=== PATIENT | male | born 1965 | race Caucasian/White ===

== ENCOUNTER 2020-05-01 05:32 | Emergency (ER) | payer OTHER ==
[2020-05-01] MEDS ORDERED: NA CHLORIDE 0.9% 1,000 ML ONE (06:35)
[2020-05-01] MEDS ORDERED: ONDANSETRON 4 MG/2 ML VIAL ONE (06:35)
[2020-05-01] MEDS ORDERED: FENTANYL CITR 100 MCG/2 ML ONE (06:35)
[2020-05-01 06:46] LABS: Absolute Lymphocytes (CBC) 2.8 K/uL (0.7-4.9); Hematocrit 43.6 % (39.6-49.0); Lymphocytes % 17.6 % (15.3-44.8); MPV 9.9 fL (7.6-11.3); RBC Red Blood Cell Count 4.66 M/uL (4.33-5.43)
[2020-05-01 06:47] LABS: Protime INR 1.07
[2020-05-01] MEDS ORDERED: TETANUS & DIPHTHERIA TOX,ADULT 0.5 ML VIAL ONE (07:01)
[2020-05-01 08:11] LABS: ALT/SGPT 192 U/L (12-78); Albumin 3.3 g/dL (3.4-5.0); Alkaline Phosphatase 174 U/L (45-117); BUN Blood Urea Nitrogen 11 mg/dL (7-18); Bicarbonate 19 mmol/L (21-32); Bilirubin Direct 0.3 mg/dL (0-0.2); Bilirubin Total 0.8 mg/dL (0.2-1.0); Glucose Level 219 mg/dL (74-106); Sodium Level 139 mmol/L (136-145)
[2020-05-01 08:13] LABS: AST/SGOT 188 U/L (15-37); Potassium 4.3 mmol/L (3.5-5.1)
[2020-05-01] MEDS ORDERED: LIDOCAINE 1% MPF 5 ML VIAL ONE (09:46)
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
--- NOTE | 2020-05-01 10:43 | ER ---
Nurse's Notes [facility] Name: Huber Augustine Age: 55 yrs Sex: Male : 1965 Arrival Date: 05/01/2020 Time: 05:35 Bed 8 Private MD: Diagnosis: Alcohol abuse with intoxication;Laceration without foreign body of other part of head-forehead;Pain in right shoulder Presentation: 05/01 05:35 Chief complaint: EMS states: patient found on the ground, lacerated wound on the center rr5 of the forehead and complaining of pain on his right shoulder and right side of the chest. Coronavirus screen: Proceed with normal triage. Ebola Screen: Patient negative for fever greater than or equal to 101.5 degrees Fahrenheit, and additional compatible Ebola Virus Disease symptoms Patient denies exposure to infectious person. Patient denies travel to an Ebola-affected area in the 21 days before illness onset. Complicating Factors: drowsy, had a few drinks stated by the patient. Initial Sepsis Screen: Does the patient meet any 2 criteria? No. Patient's initial sepsis screen is negative. Does the patient have a suspected source of infection? No. Patient's initial sepsis screen is negative. Risk Assessment: Do you want to hurt yourself or someone else? Patient reports no desire to harm self or others. Onset of symptoms was May 01, 2020. 05:35 Method Of Arrival: EMS: [facility] rr5 05:35 Acuity: ROSALEE 2 rr5 05:35 Care prior to arrival: Cervical collar in place. Placed on backboard. rr5 05:35 Note CBG from EMS 230 mg/Dl. rr5 05:35 Mechanism of Injury: Fall found on the ground. Trauma event details: Injury occurred in [address], [facility]: May 01, 2020. Trauma Activation: Alert Physician: ED Physician; Name: dr. mckee/ priti jacome; Notified At: 05:35; Arrived At: 06:15 Physician: General Surgeon; Name: ; Notified At: 05:25; Arrived At: Physician: Radiology; Name: dannie/gopal; Notified At: 05:25; Arrived At: 06:28 Physician: Respiratory; Name: ; Notified At: 05:25; Arrived At: Physician: Lab; Name: ; Notified At: 05:25; Arrived At: Historical: - Allergies: 05:41 No Known Allergies; rr5 - Home Meds: 05:41 Lisinopril Oral [Active]; gabapentin oral oral [Active]; rr5 - PMHx: 05:41 neuropathy; Hypertension; Diabetes - NIDDM; rr5 06:58 liver cancer; rr5 - PSHx: 06:58 Cholecystectomy; ankle surgery; rr5 - Immunization history:: Adult Immunizations up to date, Last tetanus immunization: up to date. - Social history:: Smoking status: Patient reports the use of cigarette tobacco products, denies chronic smoking, but will smoke occasionally, Patient uses alcohol, occasionally. Patient/guardian denies using street drugs. Screenin:42 Abuse screen: Denies threats or abuse. Denies injuries from another. Nutritional rr5 screening: No deficits noted. Tuberculosis screening: No symptoms or risk factors identified. Fall Risk Fall in past 12 months (25 points). IV access (20 points). Gait- Impaired (20 pts.). Mental Status- Overestimates/Forgets Limitations (15 pts.). Total Michael Fall Scale indicates High Risk Score (45 or more points). Fall prevention measures have been instituted. Side Rails Up X 2 Placed Close to Nursing Station As available patient and family educated on Fall Prevention Program and Strategies. Primary Survey: 05:42 NO uncontrolled hemorrhage observed. A: The patient is alert. Airway: patent, No rr5 supplemental oxygen in use on arrival. Oral cavity: clear, gag reflex present, Trachea midline. Breathing/Chest: Respiratory pattern: regular, Respiratory effort: spontaneous, unlabored, Breath sounds: clear, bilaterally. Chest inspection:. Circulation: Pulses: palpable right radial artery, right dorsalis pedis artery, left radial artery and left dorsalis pedis artery. Skin color: pink, Skin temperature: warm, dry. Disability Alert. Exposure/Environment: All clothing and personal items were removed. There is no evidence of uncontrolled external bleeding. Obvious injury(ies) are noted at this time: lacerated wound at center of the forehead A warming method has been applied: A warm blanket has been provided to the patient. 06:48 Reassessment Airway Airway Breathing/Chest Respiratory pattern Regular Respiratory rr5 effort Spontaneous Unlabored Breath sounds Clear Chest inspection Symmetrical Circulation Heart tones Present Pulses Palpable Color [place] Temperature Warm Dry Disability Alert. Secondary Survey: 05:43 HEENT: Face Other lacerated wound at the center of forehead Eyes: No injury or rr5 deformity noted. to bilateral eyes. Ears: clear bilaterally. Nose: clear to bilateral nares. Throat: is clear with gag reflex present. Gastrointestinal: Abdomen is soft. : No signs and/or symptoms were reported regarding the genitourinary system. Musculoskeletal: Capillary refill < 3 seconds, Reports pain in right shoulder. Injury Description: Laceration sustained to forehead is clean, 0.5 to 2.5 cm long, not bleeding, dry lacerated wound,center of the forehead. Assessment: 05:35 General: Appears in no apparent distress. uncomfortable, Behavior is cooperative, rr5 drowsy. Pain: Complains of pain in right lateral anterior chest Pain currently is 7 out of 10 on a pain scale. Quality of pain is described as aching, Pain began gradually, Is continuous. 05:35 Neuro: Level of Consciousness is awake, alert, Oriented to person, place, time, rr5 situation. Cardiovascular: Reports right chest wall pain Capillary refill < 3 seconds Patient's skin is warm and dry. Respiratory: Airway is patent Respiratory effort is even, unlabored, Respiratory pattern is regular, symmetrical. GI: Abdomen is non-distended, Abdomen is tender to palpation in right upper quadrant and left upper quadrant Reports upper abdominal pain. : EENT: No signs and/or symptoms were reported regarding the EENT system. Derm: Skin is intact, Skin temperature is warm Wound noted forehead Wound is lacerated wound. Musculoskeletal: Capillary refill < 3 seconds. 05:35 Injury Description: Laceration sustained to forehead is clean, 0.5 to 2.5 cm long, not rr5 bleeding. 06:15 Reassessment: Patient appears in no apparent distress at this time. back from CT scan. rr5 seen and examined by ED provider with order made and carried out. 06:50 Reassessment: Patient appears in no apparent distress at this time. Patient is alert, rr5 oriented x 3, equal unlabored respirations, skin warm/dry/pink. awaiting for results. 07:30 Reassessment: Patient appears in no apparent distress at this time. No changes from jl7 previously documented assessment. Patient is alert, oriented x 3, equal unlabored respirations, skin warm/dry/pink. 08:30 Reassessment: Patient appears in no apparent distress at this time. No changes from jl7 previously documented assessment. Patient and/or family updated on plan of care and expected duration. Pain level reassessed. Patient is alert, oriented x 3, equal unlabored respirations, skin warm/dry/pink. 09:41 Reassessment: Patient appears in no apparent distress at this time. pt laying in bed jl7 with eyes closed, respirations even and unlabored, no signs of distress noted at this time. 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 Vital Signs: 05:35 BP 139 / 88; Pulse 86; Resp 17; Temp 97.5; Pulse Ox 100% ; Weight 120.2 kg; Height 5 rr5 ft. 6 in. (167.64 cm); Pain 7/10; 06:40 BP 128 / 81; Pulse 76; Resp 16; Pulse Ox 98% ; rr5 07:00 BP 124 / 80; Pulse 72; Resp 17; Pulse Ox 96% ; jl7 08:00 BP 117 / 82; Pulse 75; Resp 17; Pulse Ox 95% ; jl7 09:42 BP 117 / 78; Pulse 65; Resp 15; Pulse Ox 95% ; jl7 10:27 BP 136 / 88; Pulse 70; Resp 15; Pulse Ox 99% ; jl7 05:35 Body Mass Index 42.77 (120.20 kg, 167.64 cm) rr5 Beverly Coma Score: 05:25 Eye Response: spontaneous(4). Verbal Response: oriented(5). Motor Response: obeys rr5 commands(6). Total: 15. 07:00 Eye Response: spontaneous(4). Verbal Response: oriented(5). Motor Response: obeys jl7 commands(6). Total: 15. 08:00 Eye Response: spontaneous(4). Verbal Response: oriented(5). Motor Response: obeys jl7 commands(6). Total: 15. 09:43 Eye Response: spontaneous(4). Verbal Response: oriented(5). Motor Response: obeys jl7 commands(6). Total: 15. 10:27 Eye Response: spontaneous(4). Verbal Response: oriented(5). Motor Response: obeys jl7 commands(6). Total: 15. Trauma Score (Adult): 05:25 Eye Response: spontaneous(1); Verbal Response: oriented(1); Motor Response: obeys rr5 commands(2); Systolic BP: > 89 mm Hg(4); Respiratory Rate: 10 to 29 per min(4); Dorota Score: 15; Trauma Score: 12 06:40 Eye Response: spontaneous(1); Verbal Response: oriented(1); Motor Response: obeys rr5 commands(2); Systolic BP: > 89 mm Hg(4); Respiratory Rate: 10 to 29 per min(4); Beverly Score: 15; Trauma Score: 12 ED Course: 05:35 Patient arrived in ED. sg 05:35 Osiel Gunderson, RN is Primary Nurse. rr5 05:35 Patient maintains SpO2 saturation greater than 95% on room air. Thermoregulation: warm rr5 blanket given to patient. 05:40 Triage completed. rr5 05:41 Arm band placed on right wrist. C-collar applied. back board by EMS. rr5 05:45 Patient has correct armband on for positive identification. Placed in gown. Bed in low rr5 position. Call light in reach. Side rails up X2. 05:45 Pulse ox on. NIBP on. rr5 05:45 Maintain EMS IV. Dressing intact. Good blood return noted. Site clean \T\ dry. Gauge \T\ rr 5 site: G18 left forearm. 06:03 Priti Stanton NP is PHCP. pm1 06:03 Yevgeniy Mckee MD is Attending Physician. pm1 06:27 XRAY Chest (1 view) In Process Unspecified. EDMS 06:28 CT Head C Spine In Process Unspecified. EDMS 06:49 Wound care: to laceration located on forehead was cleaned with Hibiclens, ice pack rr5 applied. Patient tolerated well. 06:54 Radiology exam delayed due to lab results not completed at this time. (BUN/Creatinine). kw1 08:33 Chest Abdomen Pelvis W Con CT In Process Unspecified. EDMS 10:38 Assist provider with laceration repair on in bewtween eyebrows that was between 2.6 to jl7 7.5 cm using sutures. Set up tray. Performed by Priti Stanton NP Dressed with 4X4s, Neosporin, Patient tolerated well. 10:50 IV discontinued, intact, bleeding controlled, No redness/swelling at site. Pressure jl7 dressing applied. Administered Medications: 06:30 Drug: Zofran (Ondansetron) 4 mg Route: IVP; Site: left forearm; rr5 07:00 Follow up: Response: No adverse reaction jl7 06:30 Drug: NS 0.9% 1000 ml Route: IV; Rate: 1000 ml; Site: left forearm; rr5 07:30 Follow up: Response: No adverse reaction; IV Status: Completed infusion; IV Intake: jl7 1000ml 06:32 Drug: fentaNYL (PF) 25 mcg {Note: rass 0.} Route: IVP; Site: left forearm; rr5 07:00 Follow up: Response: No adverse reaction; Pain is decreased jl7 06:57 Drug: Tetanus-Diphtheria Toxoid Adult 0.5 ml {[employer]: [employer]. Exp: rr5 12/19/2021. Lot #: [id number]. } Route: IM; Site: left deltoid; 09:40 Follow up: Response: No adverse reaction jl7 10:30 Drug: Lidocaine (1 %) 5 ml {Note: administered by JAK Osorio.} Volume: 5 ml; Route: jl7 Infiltration; Intake: 07:30 IV: 1000ml; Total: 1000ml. jl7 10:50 PO: 0ml; IV: 1000ml; Tubes: 0ml (); Total: 2000ml. jl7 Output: 10:50 Urine: 2000ml; Total: 2000ml. jl7 Outcome: 10:43 Discharge ordered by . pm1 10:50 Discharged to home via wheelchair, with friend. jl7 10:50 Condition: stable 10:50 Discharge instructions given to patient, Instructed on discharge instructions, follow up and referral plans. Demonstrated understanding of instructions, follow-up care. 10:50 Patient's length of stay was not longer than 2 hours. jl7 13:15 Patient left the ED. jl7 Signatures: Dispatcher [employer] EDMS Marvin Shaw RN RN sg Marinas, Patrick, NP WOOD ROOM HAND pm1 Delfina Ledezma RN RN jl7 Ashleigh Girard kw1 Osiel Gunderson, RN RN rr5
--- NOTE | 2020-05-01 11:14 | RAD REPORT ---
EXAM DESCRIPTION: RAD - Chest Single View - 05/01/2020 6:27 am CLINICAL HISTORY: TRAUMA Chest pain. COMPARISON: No comparisons FINDINGS: Portable technique limits examination quality. The lungs are grossly clear. The heart is normal in size. No displaced fractures. IMPRESSION: No acute intrathoracic process suspected.
[2020-05-01 13:35] VITALS: TEMP 97.5
[2020-05-01 13:41] VITALS: BP 136/88; O2SAT 99
== END 2020-05-01 13:15 | disposition home or self-care (01) ==
LOC: ER 05:32
PROC: 0JQ10ZZ Repair Face Subcutaneous Tissue and Fascia, Open Approach (ICD-10-PCS; principal; 2020-05-01)
DX: S01.81XA Laceration without foreign body of other part of head, initial encounter (principal); F10.129 Alcohol abuse with intoxication, unspecified; M25.511 Pain in right shoulder; Y04.2XXA Assault by strike against or bumped into by another person, initial encounter; Y93.89 Activity, other specified; Y92.89 Other specified places as the place of occurrence of the external cause; Z23 Encounter for immunization; I10 Essential (primary) hypertension; Z72.0 Tobacco use; Z85.05 Personal history of malignant neoplasm of liver
CPT/HCPCS: 96361; 85025; 80048; 36415; 80320; 86900; 86850; 85610; 86901; 82947; 80076; 70450; 72125; 71260; 74177; 71045; 90471; 90714; 96375; 96374; 99285; 12011; Q9967; J3010; J7030; J2405

== ENCOUNTER 2020-06-05 02:17 | Emergency (ER) | payer OTHER ==
--- OUTSIDE RECORDS SUMMARY | 2020-06-05 02:23 | XMS REPORT | Continuity of Care Document ---
:1965 Author Organization [employer] Care Team Providers Name Role Phone [employer] Unavailable Un available Problems Problem Status Onset Classification Date Comments Sourc e Date Reported Disorder of the 11/11/19 11/13/2019 skin and 20 [place] subcutaneous tissue, unspecified Follicular 11/11/19 11/13/2019 disorder, 20 [place] unspecified SOB Active 11/11/19 20 [place] Patient's other 10/19/20 10/21/2019 noncompliance 19 [place] with medication regimen Hyperglycemia, 10/19/20 10/21/2019 unspecified 19 [place] OTHER Active 10/19/20 19 [place] ABDOMINAL PAIN Active 05/12/20 Memor ial 19 [place] INTRACTABLE Active 05/12/20 [facility] VOMITING, 19 [place] DEHYDRATION Diabetes 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 mellitus [place] (disorder) Hypertensive 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 disorder, [place] systemic arterial (disorder) Vomiting, 05/17/2019 [place] unspecified VOMITING, Active [facility] UNSPECIFIED [place] DEHYDRATION Active [facility] Medications Medication Details Route Status Patient Ordering Order Source Instructions Provider Date ibuprofen 600 600 mg = 1 tab, Active mg oral tablet PO, Q6H, PRN 2019 [place] Pain, take with food, # 30 tab, 0 Refill(s) cephalexin 250 250 mg = 1 cap, Active H mg oral capsule PO, QID, X 5 2020 [place] day, # 20 cap, 0 Refill(s) Mupirocin 0.02 1 appl, TOP, Active MG/MG Topical TID, Please 2020 [place] Ointment apply a thin film to the infected area below your nose only as instructed., X 5 day, # 15 gm, 0 Refill(s) Ibuprofen 600 mg, Route: Inactive PO, ONCE, 2019 Dosing Weight 90, kg, Priority: STAT, Start date: 11/11/19 19:26:00 PEWTER CASTER, Stop date: 11/11/19 19:26:00 PEWTER CASTER Zofran ODT 4 mg, Route: Inactive PO, Drug form: 2019 TABDIS, ONCE, Dosing Weight 84.091, kg, Priority: STAT, Start date: 11/11/19 18:43:00 PEWTER CASTER, Stop date: 11/11/19 18:43:00 PEWTER CASTER Dexamethasone 10 mg, 2.5 mL, Inactive Route: IM, Drug [facility] t form: INJ, ONCE, Dosing Weight 84.091, kg, Priority: STAT, Start date: 11/11/19 18:42:00 PEWTER CASTER, Stop date: 11/11/19 18:42:00 PEWTER CASTER, 0 Metformin Notes: (Same Inactive hydrochloride as: Glucophage) 2018 [place] 1000 MG Oral Take with meal Tablet Metformin 1,000 mg = 1 Active hydrochloride tab, PO, Daily, 2018 [place] 1000 MG Oral # 30 tab, 0 Tablet Refill(s) lisinopril 20 20 mg = 1 tab, Active mg oral tablet PO, Daily, # 30 [place] tab, 0 Refill(s) Insulin regular Notes: (Same Inactive as: Humulin R, 2018 NovoLIN R) Roll in palms of hands gently; Do not shake vigorously. WASTE: F/P - Black; E - Municipal Trash Bin Stable for 31 days at room temperature Expires in days from D ate Saline Flush Notes: (Same Inactive 0.9% as: BD 2018 [facility] Posiflush) Sodium Chloride 1,000 mL, 1000 Inactive 0.9% (Bolus) IV ml/hr, Infuse 2018 [place] Over: 1 hr, Route: IV, 1,000, Drug form: INJ, ONCE, Priority: STAT, Dosing Weight 84.091 kg, Start date: 10/19/19 10:48:00 PEWTER CASTER, Stop date: 10/19/19 10:48:00 PEWTER CASTER, 0 Lisinopril Notes: (Same Inactive as: Prinivil, 2019 [place] Zestril) cefdinir 300 MG Notes: (Same Inactive Oral Capsule As: Omnicef) 2019 [place] cefdinir 300 MG 300 mg = 1 cap, Active Oral Capsule PO, Q12H, X 5 2019 [place] and day, # 10 cap, 0 Refill(s), Pharmacy: [id number] Rocephin + Notes: (Same No Longer sterile water As: Rocephin). Active 2018 [place] 10 mL Use with 100 mL NS and infuse over 30 min MEDICATION WASTE Product Size: 1000 mg Product Wasted: ___ mg Tylenol Notes: Max No Longer acetaminophen = Active 2018 [place] 4000mg/day (4 gm/day). (Same as: Tylenol) Insulin Lispro Notes: (Same No Longer as: Humalog) Active 2018 [place] Roll in palms of hands gently; Do not shake vigorously. WASTE: F/P - Black; E - Municipal Trash Bin Stable for 28 days at room temperature. Expires in days from D ate Dextrose 50% 25 gm, 50 mL, No Longer Syringe Route: IVP, Active 2018 [place] Drug Form: INJ, Dosing Weight 72.727, kg, PRN, PRN Blood Glucose Results, Start date: 05/13/19 1:05:00 CDT, Duration: 30 day, Stop date: 06/12/19 1:04:00 CDT, 0 Glucagon 1 mg, Route: No Longer IM, Drug form: Active 2018 [place] PDR/INJ, PRN, Dosing Weight 72.727, kg, PRN Blood Glucose Results, Start date: 05/13/19 1:05:00 CDT, Duration: 30 day, Stop date: 06/12/19 1:04:00 CDT, 0 NS 1,000 mL 1,000 mL, Rate: No Longer 75 ml/hr, Active 2018 [place] Infuse over: 13.3 hr, Route: IV, Dosing Weight 72.727 kg, Total Volume: 1,000, Start date: 05/13/19 1:04:00 CDT, Duration: 30 day, Stop date: 06/12/19 1:03:00 CDT, 1.94, m2, 0 Dextrose 50% 50 mL, Route: Inactive Syringe IVP, Dosing 2019 [place] Weight 72.727, kg, PRN, PRN Blood Glucose Results, Start date: 05/13/19 1:04:00 CDT, Duration: 30 day, Stop date: 06/12/19 1:03:00 CDT Glucagon 1 mg, Route: Inactive IM, PRN, Dosing 2019 [place] Weight 72.727, kg, PRN Blood Glucose Results, Start date: 05/13/19 1:04:00 CDT, Duration: 30 day, Stop date: 06/12/19 1:03:00 CDT Ondansetron Notes: (Same No Longer as: Zofran) Active 2019 [place] MEDICATION WASTE Product Size: 4 mg Product Wasted: ___ mg Bisacodyl Notes: (Same No Longer As: Dulcolax, Active 2019 [place] Bisco-Lax) Morphine 2 mg, 1 mL, No Longer Route: IVP, Active 2019 [place] Drug form: SOLN, Q4H, Dosing Weight 72.727, kg, PRN Pain Score 7-10, Start date: 05/13/19 1:04:00 CDT, Duration: 30 day, Stop date: 06/12/19 1:03:00 CDT, 0 Sodium Chloride 1,000 mL, Rate: Inactive 0.9% IV 1,000 100 ml/hr, [facility] mL + M.V.I.-12 Infuse over: 10 mL Daily + 10.1 hr, Route: folic acid IV 1 IV, Dosing mg Daily + Weight 72.727 thiamine IV 1 kg, Total Volume: 1,011.2, Start date: 05/12/19 23:29:00 CDT, Duration: 1 doses or times, Stop date: 05/13/19 9:34:00 CDT, 1.94, m2, 0 Sodium Chloride 1,000 mL, 1000 Inactive 0.9% (Bolus) IV ml/hr, Infuse 2019 [place] Over: 1 hr, Route: IV, 1,000, Drug form: INJ, ONCE, Priority: STAT, Dosing Weight 72.727 kg, Start date: 05/12/19 23:29:00 CDT, Stop date: 05/12/19 23:29:00 CDT, 0 Saline Flush Notes: (Same No Longer 0.9% as: BD Active 2019 [place] Posiflush) Saline Flush Notes: (Same No Longer 0.9% as: BD Active 2019 [place] Posiflush) Sodium Chloride 1,000 mL, 1000 Inactive 0.9% (Bolus) IV ml/hr, Infuse 2019 [place] Over: 1 hr, Route: IV, 1,000, Drug form: INJ, ONCE, Priority: STAT, Dosing Weight 72.727 kg, Start date: 05/12/19 17:01:00 CDT, Stop date: 05/12/19 17:01:00 CDT, 0 Ondansetron Notes: (Same Inactive as: Zofran) 2018 [place] MEDICATION WASTE Product Size: 4 mg Product Wasted: ___ mg Famotidine Notes: (Same Inactive as: Pepcid) Can 2019 [place] be dilute in 5-10cc NS IVP: Slow IV push over at least 2 minutes. Morphine Notes: (Same Inactive as:MORPhine 2019 [place] Sulfate) Ativan Notes: (Same Inactive as: Ativan) 2018 [place] Allergies, Adverse Reactions, Alerts No Known Medication Allergies Immunizations No Data Provided for This Section Results Order Name Results Value Reference Date Interpretation Comments [place] CHEM PANEL Glucose Lvl 348 70 - 99 10/19 [place] CHEM PANEL BUN 13 7 - 22 10/19 [place] CHEM PANEL Creatinine 0.95 0.50 - 10/19 Lvl 1.40 /2018 [place] CHEM PANEL Sodium Lvl 134 135 - 145 10/19 [place] CHEM PANEL Potassium 3.8 3.5 - 5.1 10/19 Lvl /2018 [place] CHEM PANEL Chloride Lvl 97 95 - 109 10/19 [place] CHEM PANEL CO2 28 24 - 32 10/19 [place] CHEM PANEL Calcium Lvl 9.1 8.5 - 10.5 10/19 [place] CHEM PANEL Total 7.7 6.4 - 8.4 10/19 [place] CHEM PANEL Albumin Lvl 3.4 3.5 - 5.0 10/19 [place] CHEM PANEL ALT 70 0 - 65 10/19 [place] CHEM PANEL AST 52 0 - 37 10/19 [place] CHEM PANEL Alk Phos 170 39 - 136 10/19 [place] CHEM PANEL Bili Total 0.6 0.2 - 1.3 10/19 [place] CHEM PANEL eGFR 90 10/19 Comment: The [facility] eGFR is calculated using the CKD-EPI formula. In most young, healthy individuals the eGFR will be >90 mL/min/1.73m2 . The eGFR declines with age. An eGFR of 60-89 may be normal in some populations, particularly the elderly, for whom the CKD-EPI formula has not been extensively validated. Use of the eGFR is not recommended in the following populations:< br/>
Renetta viduals with unstable creatinine concentration s, including patients and those with serious co-morbid conditions.<b r/>
Patie nts with extremes in muscle mass or diet.

The data above are obtained from the National Kidney Disease Education Program (NKDEP) which additionally recommends that when the eGFR is used in patients with extremes of body mass index for purposes of drug dosing, the eGFR should be multiplied by the estimated BMI. CHEM PANEL AGAP 12.8 10.0 - 10/19 MH 20.0 [facility] CHEM PANEL B/C Ratio 14 6 - 25 10/19 [facility] CHEM PANEL Globulin 4.3 2.7 - 4.2 10/19 [facility] CHEM PANEL A/G Ratio 0.8 0.7 - 1.6 10/19 [facility] HEMATOLOGY WBC 14.8 3.7 - 10.4 10/19 [facility] HEMATOLOGY RBC 5.21 4.70 - 10/19 MH 6.10 [facility] HEMATOLOGY Hgb 16.5 14.0 - 10/19 MH 18.0 [facility] HEMATOLOGY Hct 48.2 42.0 - 10/19 MH 54.0 [facility] HEMATOLOGY MCV 92.5 80.0 - 10/19 MH 94.0 /2018 [facility] HEMATOLOGY MCH 31.6 27.0 - 10/19 MH 31.0 [facility] HEMATOLOGY MCHC 34.2 32.0 - 10/19 36.0 /2018 [facility] HEMATOLOGY RDW 13.0 11.5 - 10/19 14.5 [facility] HEMATOLOGY Platelet 234 133 - 450 10/19 /2018 [facility] HEMATOLOGY MPV 9.4 7.4 - 10.4 10/19 [facility] HEMATOLOGY RBC Morph Normal Normal 10/19 (10/19/19 11:47 AM) /2018 [place] HEMATOLOGY Plt Morph Normal Normal 10/19 (10/19/19 11:47 AM) /2018 [place] HEMATOLOGY Segs 57.2 45.0 - 10/19 75.0 [facility] HEMATOLOGY Lymphocytes 27.5 20.0 - 10/19 MH 40.0 [facility] HEMATOLOGY Monocytes 12.2 2.0 - 12.0 10/19 /2018 [facility] HEMATOLOGY Eosinophils 1.6 0.0 - 4.0 10/19 /2018 [facility] HEMATOLOGY Basophils 1.5 0.0 - 1.0 10/19 /2018 [facility] HEMATOLOGY Neutrophils 8.5 1.5 - 8.1 10/19 MH # /2019 [facility] HEMATOLOGY Lymphocytes 4.1 1.0 - 5.5 10/19 MH # /2019 [facility] HEMATOLOGY Monocytes # 1.8 0.0 - 0.8 10/19 /2018 [facility] HEMATOLOGY Eosinophils 0.2 0.0 - 0.5 10/19 # /2019 [facility] HEMATOLOGY Basophils # 0.2 0.0 - 0.2 10/19 /2018 [facility] IMMUNOLOGY HIV Ag/Ab Negative Negative 05/15 4th Gen *NA* [place] (05/15/19 4:04 AM) CHEM PANEL Procalcitoni 0.96 0.00 - 05/14 n Lvl 0. [place] IMMUNOLOGY Hep B Core Negative Negative 05/14 IgM *NA* [place] (05/14/19 9:48 AM) IMMUNOLOGY Hep Bs Ag Negative Negative 05/14 MH *NA* [place] (05/14/19 9:48 AM) IMMUNOLOGY Hep A IgM Negative Negative 05/14 MH *NA* [place] (05/14/19 9:48 AM) IMMUNOLOGY Hep C Ab Positive 05/14 *ABN* /2018 [place] (05/14/19 9:48 AM) TUMOR AFP 48.3 0.0 - 11.0 05/14 [place] CHEM PANEL Phosphorus 2.7 2.5 - 4.5 05/14 [place] CHEM PANEL Magnesium 2.0 1.8 - 2.4 05/14 Lvl [place] CHEM PANEL eGFR 92 05/14 [facility] Comment: The [place] eGFR is calculated using the CKD-EPI formula. In most young, healthy individuals the eGFR will be >90 mL/min/1.73m2 . The eGFR declines with age. An eGFR of 60-89 may be normal in some populations, particularly the elderly, for whom the CKD-EPI formula has not been extensively validated. Use of the eGFR is not recommended in the following populations:< br/>
Renetta viduals with unstable creatinine concentration s, including patients and those with serious co-morbid conditions.<b r/>
Patie nts with extremes in muscle mass or diet.

The data above are obtained from the National Kidney Disease Education Program (NKDEP) which additionally recommends that when the eGFR is used in patients with extremes of body mass index for purposes of drug dosing, the eGFR should be multiplied by the estimated BMI. CHEM PANEL Bili Total 1.8 0.2 - 1.3 05/14 [place] CHEM PANEL Alk Phos 85 39 - 136 05/14 [place] CHEM PANEL AST 219 0 - 37 05/14 [place] CHEM PANEL Creatinine 0.93 0.50 - 07 MH Lvl 1.40 [place] CHEM PANEL BUN 15 7 - 22 05/14 [place] CHEM PANEL Glucose Lvl 86 70 - 99 05/14 [place] CHEM PANEL ALT 154 0 - 65 05/14 [place] CHEM PANEL Albumin Lvl 2.8 3.5 - 5.0 05/14 [place] CHEM PANEL CO2 19 24 - 32 05/14 [place] CHEM PANEL Total 6.5 6.4 - 8.4 05/14 [place] CHEM PANEL Calcium Lvl 8.1 8.5 - 10.5 07 [place] CHEM PANEL Potassium 4.2 3.5 - 5.1 07/10 MH Lvl /2019 [place] CHEM PANEL Chloride Lvl 103 95 - 109 05/14 [place] CHEM PANEL Sodium Lvl 132 135 - 145 07 [place] CHEM PANEL Globulin 3.7 2.7 - 4.2 07 [place] CHEM PANEL A/G Ratio 0.8 0.7 - 1.6 05/14 [place] CHEM PANEL B/C Ratio 16 6 - 25 07 [place] CHEM PANEL AGAP 14.2 10.0 - 07 MH 20.0 [place] HEMATOLOGY MPV 10.4 7.4 - 10.4 05/14 [place] HEMATOLOGY RBC 5.83 4.70 - 05/14 MH 6.10 [place] HEMATOLOGY MCHC 35.1 32.0 - 05/14 MH 36.0 [place] HEMATOLOGY MCV 90.5 80.0 - 05/14 MH 94.0 [place] HEMATOLOGY Hgb 18.5 14.0 - 05/14 MH 18.0 [place] HEMATOLOGY Hct 52.7 42.0 - 07 MH 54.0 [place] HEMATOLOGY WBC 5.1 3.7 - 10.4 05/14 [place] HEMATOLOGY Platelet 65 133 - 450 05/14 [place] HEMATOLOGY RDW 13.2 11.5 - 05/14 MH 14.5 [place] HEMATOLOGY MCH 31.8 27.0 - 05/14 MH 31.0 [place] HEMATOLOGY Lymphocytes 12.5 20.0 - 07 MH 40.0 [place] HEMATOLOGY Monocytes # 0.4 0.0 - 0.8 05/14 [place] HEMATOLOGY Lymphocytes 0.6 1.0 - 5.5 / MH # /2018 [place] HEMATOLOGY Basophils 0.6 0.0 - 1.0 05/14 [place] HEMATOLOGY Neutrophils 4.0 1.5 - 8.1 10 MH # /2018 [place] HEMATOLOGY Monocytes 8.3 2.0 - 12.0 05/14 [place] HEMATOLOGY Segs 78.6 45.0 - 0710 MH 75.0 /2019 [place] URINE AND UA Mucus Few /LPF None Seen 05/14 STOOL /LPF /2018 [place] URINE AND UA RBC 3 0 - 2 05/14 STOOL [place] URINE AND UA Sq Epi Occasional Few /LPF 05/14 STOOL /LPF [place] URINE AND UA WBC 2 0 - 5 05/14 STOOL [place] URINE AND UA Leuk Est Negative Negative 05/14 [place] (05/13/19 9:45 PM) /2018 [place] URINE AND Micro? Not Indicated 05/14 STOOL *NA* [place] (05/13/19 9:45 PM) URINE AND UA Bili Negative Negative 05/14 STOOL *NA* [place] (05/13/19 9:45 PM) URINE AND UA Nitrite Negative Negative 05/14 [place] (05/13/19 9:45 PM) /2018 [place] URINE AND UA Blood Negative Negative 05/14 [place] (05/13/19 9:45 PM) [place] URINE AND UA pH 5.0 5.0 - 8.0 05/14 STOOL [place] URINE AND UA 4.0 0.1 - 1.0 05/14 STOOL Urobilinogen /2018 [place] URINE AND UA Turbidity Clear Clear 05/14 [place] (05/13/19 9:45 PM) [place] URINE AND UA Color Anupama Yellow 05/14 STOOL *ABN* [place] (05/13/19 9:45 PM) URINE AND UA Spec Grav 1.016 <=1.030 05/14 STOOL [place] URINE AND UA Protein Negative Negative 05/14 [place] mg/dL mg/dL [place] URINE AND UA Glucose Negative Negative 05/14 [place] mg/dL mg/dL [place] URINE AND UA Ketones Negative Negative 05/14 [place] mg/dL mg/dL [place] Culture: <10,000 05/14 Urine CFU/mL [place] [facility] CHEM PANEL Lactic Acid 1.7 0.5 - 2.2 05/14 Lvl [place] DRUG U Benzodiaz Negative Negative 05/13 SCREEN Scr *NA* [place] (05/13/19 5:10 AM) DRUG U Bouchra Scr Negative Negative 05/13 SCREEN *NA* [place] (05/13/19 5:10 AM) DRUG U Amph Scr Positive Negative 05/13 SCREEN *ABN* /2018 [place] (05/13/19 5:10 AM) DRUG UDS Note See Note 05/13 MH SCREEN (05/13/19 5:10 AM) /2018 [place] DRUG U Negative Negative 05/13 SCREEN Phencyclidin *NA* [place] e Scr (05/13/19 5:10 AM) DRUG U Opiate Scr Positive Negative 05/13 SCREEN *ABN* /2018 [place] (05/13/19 5:10 AM) DRUG U Cocaine Negative Negative 05/13 SCREEN Scr *NA* /2018 [place] (05/13/19 5:10 AM) DRUG U Cannab Scr Positive Negative 05/13 SCREEN *ABN* [place] (05/13/19 5:10 AM) URINE AND UA Bacteria Occasional None Seen 05/13 STOOL /HPF /HPF /2018 [place] URINE AND UA Mucus Few /LPF None Seen 05/13 STOOL /LPF /2018 [place] URINE AND UA Sq Epi None Seen 05/13 STOOL [place] URINE AND UA Leuk Est Negative Negative 05/13 STOOL (05/13/19 5:10 AM) [place] URINE AND UA Nitrite Negative Negative 05/13 STOOL (05/13/19 5:10 AM) [place] URINE AND UA WBC 1 0 - 5 05/13 STOOL [place] URINE AND UA RBC 2 0 - 2 05/13 STOOL [place] URINE AND UA Glucose Negative Negative 05/13 STOOL mg/dL mg/dL [place] URINE AND UA Ketones Negative Negative 05/13 STOOL mg/dL mg/dL [place] URINE AND UA Bili Negative Negative 05/13 STOOL *NA* /2018 [place] (05/13/19 5:10 AM) URINE AND UA Blood Negative Negative 05/13 STOOL (05/13/19 5:10 AM) [place] URINE AND UA 4.0 0.1 - 1.0 05/13 STOOL Urobilinogen /2018 [place] URINE AND UA Spec Grav 1.048 <=1.030 05/13 STOOL [place] URINE AND UA pH 5.0 5.0 - 8.0 05/13 STOOL [place] URINE AND UA Protein Negative Negative 05/13 STOOL mg/dL mg/dL [place] URINE AND UA Color Anupama Yellow 05/13 STOOL *ABN* /2018 [place] (05/13/19 5:10 AM) URINE AND UA Turbidity Clear Clear 05/13 STOOL (05/13/19 5:10 AM) [facility] eGFR 96 05/13 Result Comment: The [place] eGFR is calculated using the CKD-EPI formula. In most young, healthy individuals the eGFR will be >90 mL/min/1.73m2 . The eGFR declines with age. An eGFR of 60-89 may be normal in some populations, particularly the elderly, for whom the CKD-EPI formula has not been extensively validated. Use of the eGFR is not recommended in the following populations:< br/>
Renetta viduals with unstable creatinine concentration s, including patients and those with serious co-morbid conditions.<b r/>
Patie nts with extremes in muscle mass or diet.

The data above are obtained from the National Kidney Disease Education Program (NKDEP) which additionally recommends that when the eGFR is used in patients with extremes of body mass index for purposes of drug dosing, the eGFR should be multiplied by the estimated BMI. CHEM PANEL Creatinine 0.90 0.50 - 07 MH Lvl 1.40 [place] CHEM PANEL Glucose Lvl 114 70 - 99 05/13 [place] CHEM PANEL BUN 13 7 - 22 05/13 [place] CHEM PANEL Calcium Lvl 8.8 8.5 - 10.5 05/13 [place] CHEM PANEL Sodium Lvl 130 135 - 145 05/13 [place] CHEM PANEL Potassium 4.1 3.5 - 5.1 / MH Lvl [place] CHEM PANEL Chloride Lvl 99 95 - 109 / [place] CHEM PANEL CO2 21 24 - 32 / [place] CHEM PANEL AGAP 14.1 10.0 - 07/ MH 20.0 [place] CARDIAC Troponin-I <0.02 0.00 - 07/08 ENZYMES 0.40 [place] CHEM PANEL Lipase Lvl 461 73 - 393 / [place] CHEM PANEL AST 134 0 - 37 07/08 MH /2019 [place] CHEM PANEL eGFR 80 07/08 Result Comment: The [place] eGFR is calculated using the CKD-EPI formula. In most young, healthy individuals the eGFR will be >90 mL/min/1.73m2 . The eGFR declines with age. An eGFR of 60-89 may be normal in some populations, particularly the elderly, for whom the CKD-EPI formula has not been extensively validated. Use of the eGFR is not recommended in the following populations:< br/>
Renetta viduals with unstable creatinine concentration s, including patients and those with serious co-morbid conditions.<b r/>
Patie nts with extremes in muscle mass or diet.

The data above are obtained from the National Kidney Disease Education Program (NKDEP) which additionally recommends that when the eGFR is used in patients with extremes of body mass index for purposes of drug dosing, the eGFR should be multiplied by the estimated BMI. CHEM PANEL Creatinine 1.04 0.50 - 07/ MH Lvl 1.40 /2019 [place] CHEM PANEL Potassium 4.2 3.5 - 5.1 07/08 MH Lvl [place] CHEM PANEL Sodium Lvl 131 135 - 145 07/ MH [place] CHEM PANEL Calcium Lvl 8.8 8.5 - 10.5 05/12 [place] CHEM PANEL CO2 21 24 - 32 / [place] CHEM PANEL Chloride Lvl 99 95 - 109 07/ MH [place] CHEM PANEL ALT 143 0 - 65 07/08 MH [place] CHEM PANEL Albumin Lvl 3.3 3.5 - 5.0 07/08 MH [place] CHEM PANEL Glucose Lvl 165 70 - 99 07/08 MH [place] CHEM PANEL BUN 13 7 - 22 07/ MH [place] CHEM PANEL Bili Total 1.3 0.2 - 1.3 07/08 MH [place] CHEM PANEL Total 7.7 6.4 - 8.4 07/08 MH Protein [place] CHEM PANEL Alk Phos 94 39 - 136 / MH [place] CHEM PANEL AGAP 15.2 10.0 - 07/08 MH 20.0 /2019 [place] CHEM PANEL B/C Ratio 12 6 - 25 07/08 MH [place] CHEM PANEL Globulin 4.4 2.7 - 4.2 07/08 /2018 [place] CHEM PANEL A/G Ratio 0.8 0.7 - 1.6 07/ /2018 [place] HEMATOLOGY INR 1.03 0.85 - 07/ MH 1.17 [place] HEMATOLOGY PT 13.3 12.0 - 07/08 MH 14.7 /2018 [place] HEMATOLOGY PTT 39.2 22.9 - 07/08 MH 35.8 /2018 [place] HEMATOLOGY RDW 13.4 11.5 - 07 MH 14.5 [place] HEMATOLOGY Platelet 98 133 - 450 07/ /2018 [place] HEMATOLOGY MPV 9.3 7.4 - 10.4 07 /2018 [place] HEMATOLOGY MCV 91.0 80.0 - 05/12 MH 94.0 /2018 [place] HEMATOLOGY MCH 32.1 27.0 - 07/ MH 31.0 /2018 [place] HEMATOLOGY MCHC 35.3 32.0 - 05/12 MH 36.0 [place] HEMATOLOGY WBC 9.0 3.7 - 10.4 07/08 /2018 [place] HEMATOLOGY RBC 6.03 4.70 - 0708 MH 6.10 /2018 [place] HEMATOLOGY Hgb 19.4 14.0 - 0708 MH 18.0 [place] HEMATOLOGY Hct 54.8 42.0 - 0708 MH 54.0 /2018 [place] HEMATOLOGY Lymphocytes 6.8 20.0 - 07/08 MH 40.0 /2018 [place] HEMATOLOGY Neutrophils 8.0 1.5 - 8.1 /08 MH # /2018 [place] HEMATOLOGY Basophils 0.4 0.0 - 1.0 07/08 /2018 [place] HEMATOLOGY Monocytes 3.4 2.0 - 12.0 07/08 /2018 [place] HEMATOLOGY Lymphocytes 0.6 1.0 - 5.5 07/08 MH # /2018 [place] HEMATOLOGY Monocytes # 0.3 0.0 - 0.8 07/08 [place] HEMATOLOGY Segs 89.4 45.0 - 07/08 MH 75.0 [place] TOXICOLOGY Acetaminoph <2 10 - 20 07/08 Lvl (05/12/19 5:33 PM) /2018 [facility] d TOXICOLOGY Etoh (%) <0.003 07/ [place] TOXICOLOGY Ethanol Lvl <3 07/08 MH /2019 [place] TOXICOLOGY Salicylate <1.7 0.0 - 30.0 05/12 Lvl /2018 [place] Pathology Reports No Data Provided for This Section Diagnostic Reports Report Value Date Source Abdomen/Pelvis w IV Radiation Dose CTDIVOL = 0 (mGy): DLP = 635.9 (mGy-cm) 10/19/2019 [facility] contrast CT PROCEDURE INFORMATION: Exam: CT Abdomen And Pelvis With Contrast Exam date and time: 10/19/2019 12:34 PM Age: 54 years old Clinical history: Abdominal pain; Flank; Right u pper quadrant (ruq); Prior surgery; Additional info: /eval ruq pain, HX of nasir TECHNIQUE: Imaging protocol: Computed tomography of the abd omen and pelvis with intravenous contrast. Total DLP: 635.9 mGy-cm Radiation optimization: All CT scans at this facility use at least one of these dose optimization techniques: automated exposure control; mA and/or kV adjustment per patient size (includes targeted e xams where dose is matched to clinical indication); or iterative reconstructio n. Contrast material: OMNIPAQUE 300; Contra st volume: 100 ml; Contrast route: IV; COMPARISON: No relevant prior studies available. FINDINGS: Liver: Hepatocellular disease likely reflecting cirrhosis. A 1.4 cm central left hepatic low-density lesion is present may r epresent hepatic cyst. Gallbladder and bile ducts: Postoperativ e cholecystectomy. Dilated common bile duct likely postsurgical. Pancreas: No ductal dilation. Spleen: No splenomegaly. Adrenals: A 8.0 mm left adrenal nodule w ith probable fatty focus may represent myelolipoma. Kidneys and ureters: No hydronephrosis. Stomach and bowel: Abundance of stool within the colon. Small fat containing Moderate diffuse sigmoid and descending divertic ulosis. Mild nonspecific fluid-filled small bowel diffuse tension is present in the left upper quadrant may represent peristalsis or focal ileus. Appendix: No normal or abnormal appendix visuali zed. Intraperitoneal space: No free air. No significa nt fluid collection. Vasculature: No abdominal aortic aneurysm. Lymph nodes: No enlarged lymph nodes. Bladder: The bladder is distended. Reproductive: Unremarkable as visualized. Bones/joints: No acute fracture. Soft tissues: Tiny fat containing umbilical yves ia is present. Small fat containing bilateral inguinal hernias are presen t. IMPRESSION: 1. Hepatocellular disease likely reflecting cirr hosis. A 1.4 cm central left hepatic low-density lesion is present may repres ent hepatic cyst. 2. Postoperative cholecystec jerod. Dilated common bile duct likely postsurgical. 3. Abundance of stool within the colon. Moderate diffuse sigmoid and descending diverticulosis. 4. A 8.0 mm left adrenal nodule with probable fa tty focus may represent myelolipoma. 5. Tiny fat containing umbilical hernia is prese nt. Small fat containing bilateral inguinal hernias are present. Lorenzo Jimenez MD On 10/19/2019 13:00:17; GERDAJNG [id number] Abdomen w/wo EXAM: MRI of the abdomen wit hout and with 18 cc of Dotarem IV contrast 05/15/2019 [facility] contrast MRI INDICATION: Abdominal pain, liver mass COMPARISON: Right upper quad rant ultrasound on 05/13/2019, 05/12/2019 CT abdomen pelvis FINDINGS: Visualized lung bases are clear. ABDOMEN: Liver contour is no dular. There is enlargement of the left hepatic and caudate lobes. Mild heterogenous enhancement and no cysts present in the periphery of the right hepatic lobe. The intrahep atic portal veins are widely patent. No significant intrahepatic biliary ductal dilatation identified. Small amount of perihepatic ascites is present. Multiple small hepatic cysts are scattered throughout the liver, largest in the left hepatic lobe on series 6 image 15 measuring 1.4 cm. No arterial enhancing lesions identified. Spleen, adrenal glands, and kidneys are within normal limits. No hydroureteronephrosis evident. Pancreas is grossly normal as well. No intrahepatic or extrahepatic biliary ductal dilatation identified. The gallbladder has been removed. Visualized loops of small kirt wel and colon are nondilated and are within normal limits. Abdominal aorta is normal in caliber. No threshold enlarged periaortic, retroperitoneal, or mesenteric lymph nodes identified. Marrow signal intensity is normal. IMPRESSION: Cirrhosis without focal flavio rial enhancing lesion to suggest hepatocellular carcinoma. Continued contrast-enhanced MRI surveillance for hepatocellular carcinoma is recommended. Small volume perihepatic/intra-abdominal ascites . Multiple subcentimeter pancreatic cysts. SL: [id number] Chest 1view DX 1 view chest portable: 05/14/2019 [facility] HISTORY: Short of breath. FINDINGS: Both lungs are [place] ar. The heart and mediastinal contours are unremarkable. No pleural or bony pathology. IMPRESSION: No acute finding SL: EG-M Abdomen RUQ US Study: Abdomen RUQ US 05/13/2019 [facility] Clinical Indication: - right upper quadrant jaycob n Comparison: CT abdomen and pelvis from TECHNIQUE: Grayscale and limited color sonographic evaluation of the right upper quadrant was performed with standard technique. FINDINGS: The liver is cirrhotic in mo rphology with a coarse echotexture and nodular contour measuring 19.6 cm. Anechoic hepatic simple cyst measuring 1.3 x 0.9 x 1.1 cm is present. The pancreas is normal in the visualized portion s. The visualized abdominal aorta and IVC are andrew l in appearance. The patient is status post c holecystectomy.There is no biliary duct dilatation. Common bile duct measures 4 mm. Sonographic Nunez's sign is negative. The right kidney is normal i n size and echotexture without stones or hydronephrosis. The right kidney measures 11.9 cm. The main portal vein is guzman nt and with hepatopedal flow. Trace amount of ascites is seen. IMPRESSION: 1. Cirrhotic morphology of the liver. 2. Hepatic simple cyst. 3. Trace ascites. 4. Status post prior cholecystectomy. SL: SLEE-PC Chest 1view DX CLINICAL INDICATION: - vomiting 05/12/2019 [facility] COMPARISON: None. FINDINGS: The AP chest radiograph show s no interstitial or airspace opacities, pleural effusions or pneumothorax. The heart size is normal. The trachea is midline. No acute osseous abnormality is identified. Atherosclerotic calcifications are noted. IMPRESSION: No acute cardiopulmonary process. SL: AUDREY ED Abdomen/Pelvis PROCEDURE: CT ABDOMEN AND PELVIS WITH CONTRAST 05/12/2019 [facility] IV contrast only CT Clinical Indication: - righ t sided abdominal pain, vomiting. ; Comparison: None TECHNIQUE: Helical imaging w as performed diaphragm through the symphysis with multiplanar reformations obtained. IV CONTRAST: 95 mL Omnipaque 300 GI CONTRAST: None. CT imaging performed at this location utilizes radiation dose optimization techniques which include one or more of the following: -Automated exposure control -Adjustment of the mA and/or kV according to pat ient size -Use of iterative reconstruction technique CT Radiation Dose DLP 512.38 mGy-cm FINDINGS: LOWER CHEST: Motion limited survey of the lung bases. Mild dependent atelectasis. No consolidation. 3 mm nodule right middle lobe, axial series 2 image 8 compatible with benign finding. Coronary arterial calcifications. LIVER: Motion limited assess ment. Slight nodular hepatic contours. There are scattered subcentimeter low-attenuation liver lesions, too small to accurately characterize. 1.1 cm circumscribed water atten uation lesion segment 4B lef t lobe. 8 mm low-attenuation lesion subcapsular segment 5 blurred by respiratory motion and incompletely characterized. The portal venous system is patent, prominent with main portal vein 20 mm diameter. BILIARY TREE: Normal. GALLBLADDER: Cholecystectomy. PANCREAS: Normal. SPLEEN: Mildly enlarged ruddy uring 12.5 x 11.8 x 5.7 cm, splenic index 840 mL. No focal splenic lesion. ADRENALS: Normal. KIDNEYS: Normal. BOWEL: Stomach is unremarkab le. There are a few mildly dilated fluid-filled loops of small bowel. No pathologic wall thickening or discrete transition point. No mesenteric edema or adenopathy. The colon is unremarkable. APPENDIX: Not visualized. No CT evidence for marilee endicitis. PERITONEUM: There is a small volume of free fluid in the pelvis. Trace fluid between mesenteric leaves in the lower abdomen. No free air. RETROPERITONEUM: No adenopat hy. Moderate atherosclerosis abdominal aorta. No aneurysm. PELVIS: No pelvic mass. The urinary bladder is n ormal. MUSCULOSKELETAL: Mild multil evel degenerative changes of the spine. No acute skeletal abnormality. IMPRESSION: 1. CT findings suggestive of cirrhosis. Evidence for portal venous hypertension. Mild splenomegaly. 2. Small liver lesions inclu ding cyst in segment IVb and additional subcentimeter lesions incompletely characterized. If indicated, further imaging options would include nonemergent MRI. 3. Small volume ascites. 4. Mild small bowel dilatati on with scattered fluid filled small bowel. An enteritis is suspected with infectious and noninfectious etiologies including hepatic enteropathy in the differential. 5. 3 mm right middle lobe no dule compatible with benign finding. In the absence of risk factors for malignancy, no routine follow-up required. If the patient has a history of smoking or other risk facto r to increase their risk of malignancy, then a follow-up chest CT at 12 months is recommended.* *Reference: Guidelines for M anagement of Incidental Pulmonary Nodules Detected on CT Images: From the Fleischner Society 2017. SL: FRIEDA Consultation Notes No Data Provided for This Section Discharge Summaries No Data Provided for This Section History and Physicals No Data Provided for This Section Vital Signs Vital Sign Value Date Comments Source Temperature Oral (F) 98.0 F 11/12/2019 [place] [facility] Rate 87 11/12/2019 [place] [facility] Rate 18 11/12/2019 [place] Systolic (mm Hg) 149 11/12/2019 [place] Diastolic (mm Hg) 100 11/12/[address] Systolic (mm Hg) 166 11/12/[place] Diastolic (mm Hg) 108 11/12/[address] Heart Rate 94 11/12/2019 [facility] Rate 20 11/12/2019 [facility] Temperature Oral (F) 98.1 F 11/12/2019 [place] Height 182.88 cm 11/12/2019 [facility] BMI Calculated 26.91 11/12/2019 [facility] Weight 90 11/12/2019 [facility] Systolic (mm Hg) 147 10/19/2019 [place] Diastolic (mm Hg) 84 10/19/[address] Respitory Rate 17 10/19/2019 [facility] Heart Rate 80 10/19/2019 [facility] Temperature Oral (F) 98.7 F 10/19/2019 [place] Systolic (mm Hg) 139 10/19/2019 [place] Diastolic (mm Hg) 90 10/19/[address] Respitory Rate 17 10/19/2019 [facility] Heart Rate 78 10/19/2019 [facility] Systolic (mm Hg) 159 10/19/[place] Diastolic (mm Hg) 105 10/19/[address] Heart Rate 86 10/19/2019 [facility] Rate 16 10/19/2019 [facility] Temperature Oral (F) 98.9 F 10/19/2019 [place] Height 185.42 cm 10/19/2019 [facility] BMI Calculated 24.46 10/19/2019 [facility] Weight 84.091 10/19/2019 [facility] Systolic (mm Hg) 129 05/15/2019 [place] Diastolic (mm Hg) 87 05/15/2019 [place] Rate 16 05/15/2019 [place] Heart Rate 77 05/15/2019 [place] Temperature Oral (F) 99.5 F 05/15/2019 [place] Temperature Oral (F) 97.5 F 05/15/2019 [place] Heart Rate 88 05/15/2019 [facility] Systolic (mm Hg) 114 05/15/2019 [facility] Diastolic (mm Hg) 70 05/15/2019 [facility] Rate 16 05/15/2019 [facility] Temperature Oral (F) 98.3 F 05/15/2019 [facility] Systolic (mm Hg) 134 05/15/2019 [facility] Diastolic (mm Hg) 87 05/15/2019 [facility] Respitory Rate 16 05/15/2019 [facility] Heart Rate 76 05/15/2019 [facility] Weight 83.182 05/13/2019 [facility] Height 185.42 cm 05/13/2019 [facility] BMI Calculated 24.19 05/13/2019 [facility] BMI Calculated 21.15 05/12/2019 [facility] Weight 72.727 05/12/2019 [facility] Height 185.42 cm 05/12/2019 [facility] Encounters Location Location Encounter Encounter Reason Attending ADM DC Stat us Source Details Type Number For Provider Date Date Visit [facility] Inpatient [id number] Dave 05/12 05/16 [facility]2018 [facility] [id number] Ruperto Cedeno 10/19 10/19 [facility] /2018 [facility] [id number] Abdiwahab 11/12 11/12 [facility] Procedures Procedure Code Date Perfomer Comments Source Cholecystectomy [id number] [facility] [place],[facility] Assessment and Plan Assessment and Plan Date Source Extracted from:Title: ID progress note 05/16/2019 Randy Schmid Author: Mio Olivares MD Date: 05/15/19 [facility] INFECTIOUS DISEASES PROGRESS NOTE Stan Garcia M.D. M. Farhan Khan, M.D. Syed W. Hasan, M.D. REASON FOR CONSULTATION: SUBJECTIVE: INTERVAL HISTORY: No acute events. Had noted some dysuria since yesterday even ing Notes increase in pain issues in lower flank area after atte mpting MRI abdomen ROS: CONST: No fever or chills RESP: No cough or SOB GI: No abdominal pain or diarrhea OBJECTIVE: PHYSICAL EXAMINATION: Vitals Tmp(F) Pulse BP RR SpO2 FIO2 05/15 11:52 97.5 88 114/70 16 98 --- 05/15 07:48 98.3 76 134/87 16 98 --- 05/15 03:00 97.6 88 105/67 18 98 --- 05/14 23:24 100.1 85 108/77 18 97 --- 05/14 20:49 98.9 92 109/69 18 98 --- 24 Hr Tmax: 100.1F (37.83c) at 05/14 23: 24 Vital Signs are the last 5 in the past 48 hours. GEN: No acute distress HEENT: On room air LUNG: Clear to auscultation bilaterally HEART: RRR ABD: Soft; Non-distended; Non-tender EXT: No edema NEURO: Alert and oriented SKIN: No rash Lines, Tubes, and Drains: 05/13/2019 15:00 Peripheral Lines: Forea rm Left 20 gauge Over the needle catheter MEDICATIONS: Scheduled Meds (1): 05/13/19 cefTRIAXone + sterile water 10 mL (Rocephin + sterile water 10 mL) 1 gm IVPB [id number] 120 ml/hr LABORATORY (All labs have been reviewed.): Labs (Last four charted values) WBC 5.1 (MAY 14) 9.0 (MAY 12) Hgb H 18.5 (MAY 14) H 19.4 (MAY 12) Hct 52.7 (MAY 14) H 54.8 (May 8) Plt L 65 (MAY 14) L 98 (MAY 12) Na L 132 (MAY 14 ) L 130 (MAY 12) L 131 (MAY 12) K 4.2 (MAY 14) 4.1 (MAY 12) 4.2 (MAY 12) CO2 L 19 (MAY 14) L 21 (MAY 12) L 21 (MAY 12) Cl 103 (MAY 14) 99 (MAY 12) 99 (MAY 12) Cr 0.93 (MAY 14) 0.90 (MAY 12) 1.04 (MAY 12) BUN 15 (MAY 14) 13 (MAY 12) 13 (MAY 12) Glucose Random 86 (MAY 14) H 114 (MAY 12) H 165 (MAY 12) Mg 2.0 (MAY 14) Phos 2.7 (MAY 14) Ca L 8.1 (MAY 14) 8.8 () 8.8 (MAY 12) PT 13.3 (MAY 12) INR 1.03 (MAY 12) PTT H 39.2 (MAY 12) Troponin <0.02 (MAY 12) MICROBIOLOGY: All cultures have been reviewed. IMAGING/TESTS: Recent studies have been reviewed. ASSESSMENT and PLAN: 54 yo M with: Fever Enteritis, possibly viral vs medication related Possible mild UTI Abdominal pain Recent methampehtamine use DM2 HTN Positive HCV antibody Liver lesions/cyst, elevated alpha feto protein Transaminitis Polycythemia Thrombocytopenia Right middle lobe nodule Afebrile Blood Cx NGTD 05/13 Urine Cx NGTD Fever could have been from enteritis, re cent meth use, or liver lesions/possible cancer vs UTI - Will stop ceftriaxone, switch to oral cefdinir 300mg PO q1 2h x 5 more days - Other care per other teams on board CURRENT ANTIMICROBIALS: Cedinir of total abx day # 3 Extracted from:Title: GI Consultation Note-Lakshmi Author: German Martins MD Date: 05/14/19 Impression and Plan Impression Upper abdominal pain Nausea and vomiting Probable liver cirrhosis Elevated liver tests Polysubstance abuse Fevers Plan His current abdominal exam is benign and he denies any abdominal pain currently Advance diet as tolerated Check hepatitis B and C serology for nelia ology of liver cirrhosis, which is at least in part due to alcohol abuse Monitor liver tests Check AFP Clinical suspicion for peritonitis is low given that o nly trace ascites is seen Above impression and recommendations on plan of care have been provided to the consulting physician Extracted from:Title: History and Physical Author: Taurus Murillo MD Date: 05/13/19 1.Abdominal pain(R10.9) Likely secondary to pancreatitis and gastroenteritis Clear liquid diet, IV fluids, PRN morphine for pain 2.Hyponatremia(E87.1) Likely chronic given his alcohol history Gentle hydration 3.LFTs abnormal(R94.5) Chronic likely secondary to liver cirrhosis Follow-up with GI as outpatient 4.Substance abuse(F19.10) Counseled and he is motivated to quit Social work consult 5.Liver cirrhosis(K74.60) Likely secondary to alcohol and hepatitis Follow-up as outpatient 6.DM2 (diabetes mellitus, type 2)(E11.9) Sliding scale insulin 7.Thrombocytopenia(D69.6) Likely chronic from cirrhosis SCDs, no chemical prophylaxis given his thrombocytopenia Observation for now Plan of Care No Data Provided for This Section Social History Social History Date Source Social History TypeResponse 11/12/2019 [place] Alcohol Current, Type Beer. Frequency: 1-2 times per month. Substance Abuse Use: Current. Type: Marijuana. Recreational Drug Route: In haled. Smoking Status Current every day smoker; Type: Cigarett es; Concerns about tobacco use in household: Yes; Exposure to Tobacco Smoke Self; Cigarette Smoking Last 365 Days Yes; Reg Smoking Cessation Counseling No; Tobacco use per day: 10; entered on: 11/11/19 Social History TypeResponse 05/13/2019 [place] Substance Abuse Use: Current. Recreational Drug Route: Subcutaneous. Alcohol Past Smoking Status Current every day smoker; Exposure to To bacco Smoke None; Cigarette Smoking Last 365 Days No; Reg Smoking Cessation Counseling No entered on: 05/12/19 Family History No Data Provided for This Section Advance Directives No Data Provided for This Section Functional Status No Data Provided for This Section
--- OUTSIDE RECORDS SUMMARY | 2020-06-05 02:33 | XMS REPORT | Continuity of Care Document ---
:1965 Author Organization [facility] t Address [address] [place] [address] Care Team Providers Name Role Phone Chaya Haynes Attending Clinician Gee Cedeno Attending Clinician Jax Attending Clinician Jax Admitting Clinician Payers Payer Name Policy Type Policy Number Effective Date Expiration Date S ource Problems Condition Condition Condition Status Onset Resolution Last Treating Co mments Source Name Details Category Date Date Treatment Clinician Date SOB Diagnosis Active 2019-11-19 Mem oria 1-07 06:18:00 l SOB 00:00: [place] 00 Active 11/11/2019 [facility] OTHER Diagnosis Active 2018-112019-11-17 Mem oria 215 06:42:00 l OTHER 00:00: [place] 00 Active 10/19/2019 [facility] ABDOMINAL Diagnosis Active 2019-05-12 Memoria PAIN 05-12 19:12:00 l 00:00: [place] ABDOMINAL 00 PAIN Active 05/12/2019 [facility] [place] INTRACTABL Diagnosis Active 2019-11-25 Memoria E 05-12 13:20:00 l VOMITING, 00:00: [place] DEHYDRATIO INTRACTABL 00 N E VOMITING, DEHYDRATIO N Active 05/12/2019 [facility] [place] Vomiting, Problem 2019-05-17 Nm moria unspecifie 22:27:25 l d [place] Vomiting, unspecifie d 05/17/2019 [facility] Diabetes Problem Resolve 2019-11-13 Me moria mellitus d 23:53:55 l (disorder) Diabetes He rmann mellitus (disorder) 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 [facility] Hypertensi Problem Resolve 2019-11-13 Memoria ve d 23:53:55 l disorder, [place] systemic Hypertensi arterial ve (disorder) disorder, systemic arterial (disorder) 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 [facility] VOMITING, Diagnosis Active 2019-11-25 Memoria UNSPECIFIE 13:20:00 l D [place] VOMITING, UNSPECIFIE D Active [facility] [place] DEHYDRATIO Diagnosis Active 2019-11-25 Memoria N 13:20:00 l [place] DEHYDRATIO N Active [facility] [place] Disorder Problem 2019-11-13 2019-11-13 Memoria of the 11-11 23:53:55 23:53:55 l skin and Disorder 18:00: Herm cata subcutaneo of the 00 us tissue, skin and unspecifie subcutaneo d us tissue, unspecifie d 11/11/2019 11/13/2019 [facility] Follicular Problem 2019-11-13 2019-11-13 Memoria disorder, 11-11 23:53:55 23:53:55 l unspecifie 18:00: Chuck neal Follicular 00 disorder, unspecifie d 11/11/2019 11/13/2019 [facility] Patient's Problem [id number] 2019-10-21 Memoria other 2-15 22:21:49 22:21:49 l noncomplia 18:00: Chuck dooley nce with Patient's 00 medication other regimen noncomplia nce with medication regimen 10/19/2019 10/21/2019 [facility] Hyperglyce Problem 2018-112019-10-21 2019-10-21 Memoria yanet, 2-15 22:21:49 22:21:49 l unspecifie 18:00: Chuck neal Hyperglyce 00 yanet, unspecifie d 10/19/2019 10/21/2019 [facility] Allergies, Adverse Reactions, Alerts Allergy Allergy Status Severity Reaction(s) Onset Inactive Treating Comm ents Source Name Type Date Date Clinician morphine DA Active [place] [facility] 8[facility] [place] [facility] No Known DA Active [facility] 6[facility] [place] [facility] 00:[facility]: d 00 [facility] Social History Social Habit Start Date Stop Date Quantity Comments Source Social History 2019-05-13 2019-05-13 [facility] 19:52:05 19:52:05 Medications Ordered Filled Start Stop Current Ordering Indication Dosage Frequency Signature Comments Components Source Medication Medication Date Date Medication? Clinician (SIG) Name Name ibuprofen 2020-0 Yes 600 mg = 1 Me moria 600 mg oral 1-08 tab, PO, l tablet 01:36: Q6H, PRN Pain, take with food, # 30 tab, 0 Refill(s) cephalexin 2020-0 Yes 250 mg = 1 M emoria 250 mg oral 1-08 cap, PO, l capsule 01:35: QID, X 5 Chuck n 00 day, # 20 cap, 0 Refill(s) Mupirocin 2020-0 Yes 1 appl, Memor ia 0.02 MG/MG 1-08 TOP, TID, l Topical 01:30: Please [place] Ointment 00 apply a thin film to the infected area below your nose only as instructed ., X 5 day, # 15 gm, 0 Refill(s) Ibuprofen 2020-0 No 600 mg, Memor ia 1-08 Route: PO, l 01:26: ONCE, Dosing Weight 90, kg, Priority: STAT, Start date: 11/11/19 19:26:00 [employer], Stop date: 11/11/19 19:26:00 [employer] Zofran ODT 2020-0 No 4 mg, Memori a -08 Route: PO, l 00:43: Drug form: [place] 00 TABDIS, ONCE, Dosing Weight 84.091, kg, Priority: STAT, Start date: 11/11/19 18:43:00 [employer], Stop date: 11/11/19 18:43:00 [employer] Dexamethaso 2020-0 No 10 mg, 2.5 Memoria ne 1-08 mL, Route: l 00:42: IM, Drug form: INJ, ONCE, Dosing Weight 84.091, kg, Priority: STAT, Start date: 11/11/19 18:42:00 [employer], Stop date: 11/11/19 18:42:00 [employer], 0 Metformin 2019- No Notes: Memori a hydrochlori 2-15 (Same as: l de 1000 MG 23:00: Glucophage H ermann Oral Tablet 00 ) Take with meal Metformin 2018-11 Yes 1,000 mg = Me moria hydrochlori 2-15 1 tab, PO, l de 1000 MG 19:09: Daily, # Her haddad Oral Tablet 00 30 tab, 0 Refill(s) lisinopril 2018-11 Yes 20 mg = 1 Me moria 20 mg oral 2-15 tab, PO, l tablet 19:08: Daily, # [place] 00 30 tab, 0 Refill(s) Insulin 2018-11 No Notes: Memoria regular 2-15 (Same as: l 18:36: Humulin R, [place] 00 NovoLIN R) Roll in palms of hands gently; Do not shake vigorously . WASTE: F/P - Black; E - Municipal Trash Bin Stable for 31 days at room temperatur e Expires in days from ____Date Saline 2018-11 No Notes: Memoria Flush 0.9% 2-15 (Same as: l 16:48: BD [place] 00 Posiflush) Sodium 2018-11 No 1,000 mL, Memori a Chloride 2-15 1000 l 0.9% 16:48: ml/hr, [place] (Bolus) IV 00 Infuse Over: 1 hr, Route: IV, 1,000, Drug form: INJ, ONCE, Priority: STAT, Dosing Weight 84.091 kg, Start date: 10/19/19 10:48:00 [employer], Stop date: 10/19/19 10:48:00 [employer], 0 Lisinopril 2018-11 No Notes: Memor ia 2-15 (Same as: l 16:48: Prinivil, [place] 00 Zestril) cefdinir No Notes: Memoria 300 MG Oral 7-12 (Same As: l Capsule 02:00: Omnicef) Chuck n 00 cefdinir Yes 300 mg = 1 Mem oria 300 MG Oral 7-11 cap, PO, l Capsule 21:39: Q12H, X 5 Monik nn 00 day, # 10 cap, 0 Refill(s), Pharmacy: [facility] [address] [place] [address] + No Notes: Memor ia sterile 7-10 (Same As: l water 10 mL 03:00: Rocephin). Use with 100 mL NS and infuse over 30 min MEDICATION WASTE Product Size: 1000 mg Product Wasted: ___ mg Tylenol No Notes: Max Nikita jelly 7- acetaminop l 01:21: hen = 4000mg/day (4 gm/day). (Same as: Tylenol) Insulin No Notes: Memoria Lispro 05-13 (Same as: l 06:05: Humalog) Roll in palms of hands gently; Do not shake vigorously . WASTE: F/P - Black; E - Municipal Trash Bin Stable for 28 days at room temperatur e. Expires in days from ____Date Dextrose No 25 gm, 50 Nikita jelly 50% Syringe 05-13 mL, Route: l 06:05: IVP, Drug Form: INJ, Dosing Weight 72.727, kg, PRN, PRN Blood Glucose Results, Start date: 05/13/19 1:05:00 CDT, Duration: 30 day, Stop date: 06/12/19 1:04:00 CDT, 0 Glucagon No 1 mg, Memoria 05-13 Route: IM, l 06:05: Drug form: PDR/INJ, PRN, Dosing Weight 72.727, kg, PRN Blood Glucose Results, Start date: 05/13/19 1:05:00 CDT, Duration: 30 day, Stop date: 06/12/19 1:04:00 CDT, 0 NS 1,000 mL No 1,000 mL, M emoria 05-13 Rate: 75 l 06:04: ml/hr, Infuse over: 13.3 hr, Route: IV, Dosing Weight 72.727 kg, Total Volume: 1,000, Start date: 05/13/19 1:04:00 CDT, Duration: 30 day, Stop date: 06/12/19 1:03:00 CDT, 1.94, m2, 0 Dextrose No 50 mL, Memoria 50% Syringe 05-13 Route: l 06:04: IVP, Dosing Weight 72.727, kg, PRN, PRN Blood Glucose Results, Start date: 05/13/19 1:04:00 CDT, Duration: 30 day, Stop date: 06/12/19 1:03:00 CDT Glucagon 2019-0 No 1 mg, Memoria 05-13 Route: IM, l 06:04: PRN, Dosing Weight 72.727, kg, PRN Blood Glucose Results, Start date: 05/13/19 1:04:00 CDT, Duration: 30 day, Stop date: 06/12/19 1:03:00 CDT Ondansetron 2018-0 No Notes: Nikita jelly 05-13 (Same as: l 06:04: Zofran) MEDICATION WASTE Product Size: 4 mg Product Wasted: ___ mg Bisacodyl 2018-0 No Notes: Memori a 05-13 (Same As: l 06:04: Dulcolax, [place] Bisco-Lax) Morphine 2018-0 No 2 mg, 1 Memori a 05-13 mL, Route: l 06:04: IVP, Drug form: SOLN, Q4H, Dosing Weight 72.727, kg, PRN Pain Score 7-10, Start date: 05/13/19 1:04:00 CDT, Duration: 30 day, Stop date: 06/12/19 1:03:00 CDT, 0 Sodium 2019-0 No 1,000 mL, Memori a Chloride 05-13 Rate: 100 l 0.9% IV 04:29: ml/hr, [place] 1,000 mL + 00 Infuse M.V.I.-12 over: 10.1 10 mL Daily hr, Route: + folic IV, Dosing acid IV 1 Weight mg Daily + 72.727 kg, thiamine IV Total 1 Volume: 1,011.2, Start date: 05/12/19 23:29:00 CDT, Duration: 1 doses or times, Stop date: 05/13/19 9:34:00 CDT, 1.94, m2, 0 Sodium 2019-0 No 1,000 mL, Memori a Chloride 05-13 1000 l 0.9% 04:29: ml/hr, [place] (Bolus) IV 00 Infuse Over: 1 hr, Route: IV, 1,000, Drug form: INJ, ONCE, Priority: STAT, Dosing Weight 72.727 kg, Start date: 05/12/19 23:29:00 CDT, Stop date: 05/12/19 23:29:00 CDT, 0 Saline 2018- No Notes: Memoria Flush 0.9% 7-08 (Same as: l 22:02: BD [place] 00 Posiflush) Saline No Notes: Memoria Flush 0.9% 7-08 (Same as: l 22:01: BD [place] 00 Posiflush) Sodium 2019 No 1,000 mL, Memori a Chloride 7-08 1000 l 0.9% 22:01: ml/hr, [place] (Bolus) IV 00 Infuse Over: 1 hr, Route: IV, 1,000, Drug form: INJ, ONCE, Priority: STAT, Dosing Weight 72.727 kg, Start date: 05/12/19 17:01:00 CDT, Stop date: 05/12/19 17:01:00 CDT, 0 Ondansetron No Notes: Nikita jelly 7-08 (Same as: l 22:01: Zofran) [place] 00 MEDICATION WASTE Product Size: 4 mg Product Wasted: ___ mg Famotidine No Notes: Memor ia 7-08 (Same as: l 22:01: Pepcid) [place] 00 Can be dilute in 5-10cc NS IVP: Slow IV push over at least 2 minutes. Morphine No Notes: Memoria 7-08 (Same l 22:01: as:MORPhin [place] 00 e Sulfate) Ativan No Notes: Memoria 7-08 (Same as: l 22:01: Ativan) [place] 00 Vital Signs Vital Name Observation Time Observation Value Comments Source Temperature Oral (F) 2019-11-12 01:45:00 98.0 F [facility] [place] Heart Rate 2019-11-12 01:45:00 [facility] [place] Respitory Rate 2019-11-12 01:45:00 Memori al [place] Systolic (mm Hg) 2019-11-12 01:45:00 Nikita rial [place] Diastolic (mm Hg) 2019-11-12 01:45:00 Mem orial [place] Systolic (mm Hg) 2019-11-12 00:47:00 Nikita rial [place] Diastolic (mm Hg) 2019-11-12 00:47:00 Mem orial [place] Heart Rate 2019-11-12 00:47:00 [facility] [place] Respitory Rate 2019-11-12 00:47:00 Memori al [place] Temperature Oral (F) 2019-11-12 00:47:00 98.1 F [facility] [place] Height 2019-11-12 00:47:00 182.88 cm [facility] [place] BMI Calculated 2019-11-12 00:47:00 Memori al [place] Weight 2019-11-12 00:47:00 [facility] [place] Systolic (mm Hg) 2019-10-19 19:19:00 Nikita rial [place] Diastolic (mm Hg) 2019-10-19 19:19:00 Mem orial [place] Respitory Rate 2019-10-19 19:19:00 Memori al [place] Heart Rate 2019-10-19 19:19:00 [facility] [place] Temperature Oral (F) 2019-10-19 19:19:00 98.7 F [facility] [place] Systolic (mm Hg) 2019-10-19 17:45:00 Nikita rial [place] Diastolic (mm Hg) 2019-10-19 17:45:00 Mem orial [place] Respitory Rate 2019-10-19 17:45:00 Memori al [place] Heart Rate 2019-10-19 17:45:00 [facility] [place] Systolic (mm Hg) 2019-10-19 16:28:00 Nikita rial [place] Diastolic (mm Hg) 2019-10-19 16:28:00 Mem orial [place] Heart Rate 2019-10-19 16:28:00 [facility] [place] Respitory Rate 2019-10-19 16:28:00 Memori al [place] Temperature Oral (F) 2019-10-19 16:28:00 98.9 F [facility] [place] Height 2019-10-19 16:28:00 185.42 cm [facility] [place] BMI Calculated 2019-10-19 16:28:00 Memori al [place] Weight 2019-10-19 16:28:00 [facility] [place] Systolic (mm Hg) 2019-05-15 21:09:00 Nikita rial [place] Diastolic (mm Hg) 2019-05-15 21:09:00 Mem orial [place] Respitory Rate 2019-05-15 21:09:00 Memori al [place] Heart Rate 2019-05-15 21:09:00 [facility] [place] Temperature Oral (F) 2019-05-15 21:09:00 99.5 F [facility] [place] Temperature Oral (F) 2019-05-15 16:52:00 97.5 F [facility] [place] Heart Rate 2019-05-15 16:52:00 [facility] [place] Systolic (mm Hg) 2019-05-15 16:52:00 Nikita rial [place] Diastolic (mm Hg) 2019-05-15 16:52:00 Mem orial [place] Respitory Rate 2019-05-15 16:52:00 Memori al [place] Temperature Oral (F) 2019-05-15 12:48:00 98.3 F [facility] [place] Systolic (mm Hg) 2019-05-15 12:48:00 Nikita rial [place] Diastolic (mm Hg) 2019-05-15 12:48:00 Mem orial [place] Respitory Rate 2019-05-15 12:48:00 Memori al [place] Heart Rate 2019-05-15 12:48:00 [facility] [place] Weight 2019-05-13 19:57:00 [facility] [place] Height 2019-05-13 19:57:00 185.42 cm [facility] [place] BMI Calculated 2019-05-13 19:57:00 Memori al [place] BMI Calculated 2019-05-12 21:49:00 Memori al [place] Weight 2019-05-12 21:49:00 [facility] [place] Height 2019-05-12 21:49:00 185.42 cm [facility] [place] Procedures Procedure Date / Time Performed Performing Clinician Sourc e Cholecystectomy [facility] [place] Encounters Start End Encounter Admission Attending Care Care Encounter Source Date/Time Date/Time Type Type Clinicians Facility Department ID 2019-05-12 Inpatient E [facility] [id number] [facility]HB L 23:36:00 2019-11-11 2019-11-11 Outpatient CLAUDIA HaynesSE [id number] 18:37:11 19:55:00 Abdiwahab 02 English 2019-11-11 2019-11-11 Emergency E AMOSSE MHSE [id number] MH 18:37:00 18:37:00 [facility] 2019-10-19 2019-10-19 Outpatient Ruperto Cedeno SE SE [id number] 10:27:21 13:25:00 Q 01 2019-10-19 2019-10-19 [id number]:27:00 10:27:00 Susan estevez [facility] 2019-05-12 2019-05-[address] [id number] 475 16:46:41 20:14:00 Peter 00 Results Test Description Test Time Test Comments Results Result Comments Source BASIC METABOLIC PANEL 2020-01-10 12:34:00 Test Item Value Reference Range Interpretation Comme nts SODIUM (test code = NA) 136 mmol/L 134-147 N POTASSIUM (test code = K) 5.1 mmol/L 3.4-5.0 H CHLORIDE (test code = CL) 105 mmol/L 100-108 N CARBON DIOXIDE (test code = CO2) 28 mmol/L 21-32 N ANION GAP (test code = GAP) 3.0 GAP calc 4.0-15.0 L GLUCOSE (test code = GLU) 319 MG/DL 70-110 H BLOOD UREA NITROGEN (test code = BUN) 13 MG/DL 7-18 N GLOMERULAR FILTRATION RATE (test code = GFR) >=60 max estimate estG FR >60 CREATININE (test code = CREAT) 0.8 MG/DL 0.8-1.3 N CALCIUM (test code = CA) 9.5 MG/DL 8.5-10.1 N HEPATIC FUNCTION [id number] 12:34:00 Test Item Value Reference Range Interpretation Comments TOTAL PROTEIN (test code = PROT) 7.0 G/DL 6.4-8.2 N ALBUMIN (test code = ALB) 3.2 G/DL 3.4-5.0 L BILIRUBIN TOTAL (test code = BILT) 0.50 MG/DL 0.2-1.2 N BILIRUBIN DIRECT (test code = 0.40 MG/DL 0.00-0.30 H BILD) BILIRUBIN INDIRECT (test code = 0.10 MG/DL 0.2-1.2 L BILIND) SGOT/AST (test code = AST) 86 Unit/L 15-37 H SGPT/ALT (test code = ALT) 124 Unit/L 12-78 H ALKALINE PHOSPHATASE TOTAL (test 291 Unit/L 50-136 H code = ALKP) [id number] 12:34:00 Test Item Value Reference Range Interpretation Comments LIPASE (test code = LIP) 207 Unit/L 114-286 N BASIC METABOLIC [id number] 12:29:00 Test Item Value Reference Range Interpretation Comments SODIUM (test code = NA) 136 mmol/L 134-147 N POTASSIUM (test code = 5.1 mmol/L 3.4-5.0 H K) CHLORIDE (test code = 105 mmol/L 100-108 N CL) CARBON DIOXIDE (test 28 mmol/L 21-32 N code = CO2) ANION GAP (test code = 3.0 GAP calc 4.0-15.0 L GAP) GLUCOSE (test code = 319 MG/DL 70-110 H GLU) BLOOD UREA NITROGEN 13 MG/DL 7-18 N (test code = BUN) GLOMERULAR FILTRATION >=60 max estimate >60 RATE (test code = GFR) estGFR CREATININE (test code = 0.8 MG/DL 0.8-1.3 N CREAT) CALCIUM (test code = CA) 9.5 MG/DL 8.5-10.1 N HEPATIC FUNCTION [id number] 12:29:00 Test Item Value Reference Range Interpretation Comments TOTAL PROTEIN (test code = PROT) 7.0 G/DL 6.4-8.2 N ALBUMIN (test code = ALB) 3.2 G/DL 3.4-5.0 L BILIRUBIN TOTAL (test code = BILT) 0.50 MG/DL 0.2-1.2 N BILIRUBIN DIRECT (test code = MG/DL 0.00-0.30 BILD) BILIRUBIN INDIRECT (test code = MG/DL 0.2-1.2 BILIND) SGOT/AST (test code = AST) 86 Unit/L 15-37 H SGPT/ALT (test code = ALT) 124 Unit/L 12-78 H ALKALINE PHOSPHATASE TOTAL (test Unit/L 50-136 code = ALKP) [id number] 12:29:00 Test Item Value Reference Range Interpretation Comments LIPASE (test code = LIP) 207 Unit/L 114-286 N CBC W/AUTO [id number] 12:17:00 Test Item Value Reference Range Interpretation Comments WHITE BLOOD CELL (test code = 11.2 K/mm3 3.5-11.0 H WBC) RED BLOOD CELL (test code = RBC) 5.16 M/mm3 4.70-6.10 N HEMOGLOBIN (test code = HGB) 16.2 G/DL 12.3-15.9 H HEMATOCRIT (test code = HCT) 47.8 % 35.8-46.7 H MEAN CELL VOLUME (test code = 92.6 Fl 86.3-98.9 N MCV) MEAN CELL HGB (test code = MCH) 31.4 pg 28.9-34.4 N MEAN CELL HGB CONCETRATION (test 33.9 G/DL 32.1-34.5 N code = MCHC) RED CELL DISTRIBUTION WIDTH (test 13.2 SD 11.5-14.5 N code = RDW) PLATELET COUNT (test code = PLT) 189.0 K/mm3 150-450 N MEAN PLATELET VOLUME (test code = 11.30 fL 7.0-9.6 H MPV) NEUTROPHIL % (test code = NT%) 58.2 % 40-76 N LYMPHOCYTE % (test code = LY%) 28.8 % 20.5-51.1 N MONOCYTE % (test code = MO%) 11.2 % 1.7-9.3 H EOSINOPHIL % (test code = EO%) 1.4 % 0.0-6.0 N BASOPHIL % (test code = BA%) 0.4 % 0.0-2.0 N NEUTROPHIL # (test code = NT#) 6.52 K/mm3 1.8-7.6 N LYMPHOCYTE # (test code = LY#) 3.2 K/mm3 0.6-3.0 H MONOCYTE # (test code = MO#) 1.3 K/mm3 0.2-1.5 N EOSINOPHIL # (test code = EO#) 0.2 K/mm3 0.0-0.4 N BASOPHIL # (test code = BA#) 0.1 K/mm3 0.0-0.2 N MANUAL DIFF REQUIRED (test code = NO DIFF/SCN CRITERIA MDIFF) - CT ABD PELVIS [id number] 11:10:00 Name: LUBNA LEACH [facility] : 1965 Age/S: 54 / M [address] Unit #: [id number] Loc: [place] [address] Phys: Nito Golden MD Acct: [id number] Dis Date: Status: REG ER PHONE #: [phone] Exam Date: 11/22/2019 1056 FAX #: Reason: rlq pain EXAMS: CPT: [id number] CT ABD PELVIS W/CONT [id number] LOCATION: T18 EXAM: CT ABDOMEN AND PELVIS WITH CONTRAST INDICATION: Right lower quadrant abdominal pain COMPARISON: None. TECHNIQUE: Multiple CT images of the abdomen and pelvis were obtained with reconstructions in the coronal and sagittal planes. 100ml of Isovue 300 was given intravenously. Up-to-date CT equipment and radiation dose reduction techniques were utilized. Automatic exposure control was utilized. FINDINGS: Lung bases are clear. Spleen is normal in appearance. Simple cyst in the right lobe of liver measures 9 mm. Adrenal glands and pancreas normal. Gallbladder removed. No bowel distention. Portal vasculature is patent. Asymmetric delayed enhancement of the right kidney with moderate right hydronephrosis and right hydroureter. There is a tiny stone seen ri ght at the UVJ measuring 1.5 mm in size. Left kidney enhances normally. Prostate is normal in size. The appendix is not identified. No free air free fluid is present. Nobowel obstruction is seen. No inflammatory changes in the right lower quadrant present to suggest acute appendicitis. Few scattered diverticula of the sigmoid colon. Moderate a therosclerotic disease of the aorta. No aneurysmal dilation. IVC is normal. Bones are intact. Peripheral soft tissues are normal. IMPRESSION: 1.5 mm stone at the right UVJ with moderate right hydroureteronephrosis. at 1110 Reported and signed by: Cr Berrios M.D. CC: Nito Golden MD Technologist:Farooq Lang, RT(R)(CT) CTDI: DLP: Trnscb Date/Time: 11/22/2019 (1110) [email or web address] Orig Print D/T: S: 11/22/2019 (1113) PAGE 1 Signed ReportBASIC METABOLIC [id number] 10:40:00 Test Item Value Reference Range Interpretation Comments SODIUM (test code = NA) 136 mmol/L 134-147 N POTASSIUM (test code = 3.8 mmol/L 3.4-5.0 N K) CHLORIDE (test code = 103 mmol/L 100-108 N CL) CARBON DIOXIDE (test 22 mmol/L 21-32 N code = CO2) ANION GAP (test code = 11.0 GAP calc 4.0-15.0 N GAP) GLUCOSE (test code = 193 MG/DL 70-110 H GLU) BLOOD UREA NITROGEN 12 MG/DL 7-18 N (test code = BUN) GLOMERULAR FILTRATION >=60 max estimate >60 RATE (test code = GFR) estGFR CREATININE (test code = 1.0 MG/DL 0.8-1.3 N CREAT) CALCIUM (test code = CA) 9.0 MG/DL 8.5-10.1 N HEPATIC FUNCTION [id number] 10:40:00 Test Item Value Reference Range Interpretation Comments TOTAL PROTEIN (test code = PROT) 7.4 G/DL 6.4-8.2 N ALBUMIN (test code = ALB) 3.5 G/DL 3.4-5.0 N BILIRUBIN TOTAL (test code = BILT) 1.30 MG/DL 0.2-1.2 H BILIRUBIN DIRECT (test code = 0.70 MG/DL 0.00-0.30 H BILD) BILIRUBIN INDIRECT (test code = 0.60 MG/DL 0.2-1.2 N BILIND) SGOT/AST (test code = AST) 75 Unit/L 15-37 H SGPT/ALT (test code = ALT) 104 Unit/L 12-78 H ALKALINE PHOSPHATASE TOTAL (test 112 Unit/L 50-136 N code = ALKP) [id number] 10:40:00 Test Item Value Reference Range Interpretation Comments LIPASE (test code = LIP) 106 Unit/L 114-286 L UA RFLX MICR CULT IF [id number] 10:12:00 Test Item Value Reference Range Interpretation Comments UA COLOR (test code = YELLOW discript YEL/STRAW COLU) UA APPEARANCE (test code CLEAR discript CLEAR = APPU) UA GLUCOSE DIPSTICK (test 1+ mg/dL NEG code = DGLUU) UA BILIRUBIN DIPSTICK 1+ mg/dL NEG A (test code = BILU) UA KETONE DIPSTICK (test 2+ mg/dL NEG A code = KETU) UA SPECIFIC GRAVITY (test 1.020 SG 1.005-1.030 code = SGU) UA BLOOD DIPSTICK (test NEGATIVE mg/DL NEG code = PAUL) UA PH DIPSTICK (test code 7.0 pH UNITS 5.0-7.0 = LAURA) UA PROTEIN DIPSTICK (test TRACE mg/dL NEG A code = PROU) UA UROBILINIOGEN DIPSTICK >=8.0 mg/dL <2.0 (test code = URO) UA NITRITE DIPSTICK (test NEGATIVE SCREEN NEG code = KARIE) UA LEUKOCYTE ESTERASE NEGATIVE Leuk/mcL NEGATIVE DIPSTICK (test code = LEUU) UA WBC (test code = WBCU) 0-1 #WBC/HPF 0-3 UA RBC (test code = RBCU) 0-1 #RBC/HPF 0-3 UA BACTERIA (test code = NONE SEEN /HPF NONE-TRACE BACU) UA SQUAMOUS CELLS (test TRACE /HPF NONE code = SQU) UA CULTURE NEEDED? (test NO, WBC<10 Criteria Culture CHK code = UACULT) SOURCE OF URINE: CLEAN CATCHIndication for culture: Dysuria/FrequencyCBC W/AUTO [id number] 09:46:00 Test Item Value Reference Range Interpretation Comments WHITE BLOOD CELL (test code = 14.4 K/mm3 3.5-11.0 H WBC) RED BLOOD CELL (test code = RBC) 5.29 M/mm3 4.70-6.10 N HEMOGLOBIN (test code = HGB) 16.8 G/DL 12.3-15.9 H HEMATOCRIT (test code = HCT) 47.1 % 35.8-46.7 H MEAN CELL VOLUME (test code = 89.0 Fl 86.3-98.9 N MCV) MEAN CELL HGB (test code = MCH) 31.8 pg 28.9-34.4 N MEAN CELL HGB CONCETRATION (test 35.7 G/DL 32.1-34.5 H code = MCHC) RED CELL DISTRIBUTION WIDTH (test 12.8 SD 11.5-14.5 N code = RDW) PLATELET COUNT (test code = PLT) 195.0 K/mm3 150-450 N MEAN PLATELET VOLUME (test code = 11.70 fL 7.0-9.6 H MPV) NEUTROPHIL % (test code = NT%) 67.8 % 40-76 N LYMPHOCYTE % (test code = LY%) 18.4 % 20.5-51.1 L MONOCYTE % (test code = MO%) 12.5 % 1.7-9.3 H EOSINOPHIL % (test code = EO%) 1.0 % 0.0-6.0 N BASOPHIL % (test code = BA%) 0.3 % 0.0-2.0 N NEUTROPHIL # (test code = NT#) 9.75 K/mm3 1.8-7.6 H LYMPHOCYTE # (test code = LY#) 2.6 K/mm3 0.6-3.0 N MONOCYTE # (test code = MO#) 1.8 K/mm3 0.2-1.5 H EOSINOPHIL # (test code = EO#) 0.1 K/mm3 0.0-0.4 N BASOPHIL # (test code = BA#) 0.0 K/mm3 0.0-0.2 N MANUAL DIFF REQUIRED (test code = NO DIFF/SCN CRITERIA MDIFF) UA RFLX MICR CULT IF [id number] 09:45:00 Test Item Value Reference Range Interpretation Comments UA COLOR (test code = COLU) YELLOW discript YEL/STRAW UA APPEARANCE (test code = CLEAR discript CLEAR APPU) UA GLUCOSE DIPSTICK (test 1+ mg/dL NEG code = DGLUU) UA BILIRUBIN DIPSTICK (test 1+ mg/dL NEG A code = BILU) UA KETONE DIPSTICK (test 2+ mg/dL NEG A code = KETU) UA SPECIFIC GRAVITY (test 1.020 SG 1.005-1.030 code = SGU) UA BLOOD DIPSTICK (test NEGATIVE mg/DL NEG code = PAUL) UA PH DIPSTICK (test code = 7.0 pH UNITS 5.0-7.0 LAURA) UA PROTEIN DIPSTICK (test TRACE mg/dL NEG A code = PROU) UA UROBILINIOGEN DIPSTICK >=8.0 mg/dL <2.0 (test code = URO) UA NITRITE DIPSTICK (test NEGATIVE SCREEN NEG code = KARIE) UA LEUKOCYTE ESTERASE NEGATIVE Leuk/mcL NEGATIVE DIPSTICK (test code = LEUU) UA CULTURE NEEDED? (test Criteria Culture CHK code = UACULT) SOURCE OF URINE: CLEAN CATCHIndication for culture: Dysuria/FrequencyCHEM [id number] 17:47:78952Gclwbdjs HermannCHEM [id number] 17:47:0013 [facility]annCHEM [id number] 17:47:000.95[facility]annCHEM PANEL 2019-10-19 17:47:76013Ptrjmelb HermannCHEM [id number] 17:47:003.8[facility]annCHEM ACBHS6414-05-71 17:47:0097[facility]annCHEM IDKMF8190-53-48 17:47:0028[facility]annCHEM HHVLN3992-85-26 17:47:009.1[facility]annCHEM YDPCU3112-50-21 17:47:007.7[facility]annCHEM DSEAD0666-57-08 17:47:003.4 [facility] HSQJC0175-70-22 17:47:0070[facility]annCHEM PANEL 2019-10-19 17:47:0052[facility]annCHEM MKVXM9482-62-12 17:47:08683Mdslqjwp HermannCHEM WEMAE8757-46-87 17:47:000.6[facility]annCHEM [id number] 17:47:0090[facility]annCHEM GYDDM7236-27-12 17:47:0012.8[facility]annCHEM [id number] 17:47:00 Test Item Value Reference Range Interpretation Comments B/C Ratio (test code = B/C Ratio) 14 1 6-25 [facility]annCHE[facility] [id number] 17:47:004.3[facility]annCHEM PANEL 2019-10-19 17:47:00 Test Item Value Reference Range Interpretation Comments A/G Ratio (test code = A/G Ratio) 0.8 1 0.7-1.6 [facility] LqryntrHSJIYIUMBL4969-55-45 17:47:0014.8[facility] HermannHEMATOLOGY 2019-10-19 17:47:005.21[facility] SfvsdoxOLJLANQBFS5835-72-43 17:47:0016.5[facility] DzvgvqvDFGBLDTXJX9467-56-81 17:47:0048.2[facility] FulbpfhVLKCDNEETJ7488-25-98 17:47:0092.5[facility] JadfrvbFOXKQOUTVO5298-20-27 17:47:00 Test Item Value Reference Range Interpretation Comments MCH (test code = MCH) 31.6 pg 27.0-31.0 [facility] XcqgvafYFTNIQRMMD7552-11-06 17:47:0034.2[facility]annHEMATOLOGY 2019-10-19 17:47:0013.0[facility] MbanbuhLTMWKLPEKX9555-91-54 17:47:55496Jwkvhlzx TuyxxpnLIBCXMWFNR7063-61-95 17:47:009.4[facility] YujkdluRBYVLUVELI3005-52-88 17:47:00Normal (10/19/19 11:47 AM)[facility] GvbpenrVHAHXQTAFO0624-35-62 17:47:00 Normal (10/19/19 11:47 AM)[facility] QcwrjkqPTMCILJIPE9635-81-97 17:47:0057.2 [facility] BfsdmzvRPGFXOPGEA8533-85-94 17:47:0027.5[facility]annHEMATOLOGY 2019-10-19 17:47:0012.2[facility] XcpmjiyTYLNWAIWDO7436-42-81 17:47:001.6[facility] CifemdzYSUSTYKTWG3412-74-98 17:47:001.5[facility] LkuexjbRSNTDYVLEZ2631-76-01 17:47:008.5[facility] AzdoorgQQBRGLIGUJ8355-72-73 17:47:004.1[facility] GMSYQIPSAH4297-48-57 17:47:001.8[facility] WhejsvyUZCXTNMYWA1082-79-51 17:47:000.2 [facility] IiavutcYEYUUDAORR5491-33-51 17:47:000.2[facility] HermannCBC W/AUTO DIFF 2019-10-14 23:05:00 Test Item Value Reference Range Interpretation Comments WHITE BLOOD CELL (test 14.0 K/mm3 3.5-11.0 H code = WBC) RED BLOOD CELL (test 4.96 M/mm3 4.70-6.10 N code = RBC) HEMOGLOBIN (test code 16.1 G/DL 12.3-15.9 H = HGB) HEMATOCRIT (test code 45.7 % 35.8-46.7 N = HCT) MEAN CELL VOLUME (test 92.1 Fl 86.3-98.9 N code = MCV) MEAN CELL HGB (test 32.5 pg 28.9-34.4 N code = MCH) MEAN CELL HGB 35.2 G/DL 32.1-34.5 H CONCETRATION (test code = MCHC) RED CELL DISTRIBUTION 13.1 SD 11.5-14.5 N WIDTH (test code = RDW) PLATELET COUNT (test 213.0 K/mm3 150-450 N code = PLT) MEAN PLATELET VOLUME 10.90 fL 7.0-9.6 H (test code = MPV) NEUTROPHIL % (test 57.5 % 40-76 N code = NT%) LYMPHOCYTE % (test 26.7 % 20.5-51.1 N code = LY%) MONOCYTE % (test code 13.5 % 1.7-9.3 H = MO%) EOSINOPHIL % (test 1.9 % 0.0-6.0 N code = EO%) BASOPHIL % (test code 0.4 % 0.0-2.0 N = BA%) NEUTROPHIL # (test 8.01 K/mm3 1.8-7.6 H code = NT#) LYMPHOCYTE # (test 3.7 K/mm3 0.6-3.0 H code = LY#) MONOCYTE # (test code 1.9 K/mm3 0.2-1.5 H = MO#) EOSINOPHIL # (test 0.3 K/mm3 0.0-0.4 N code = EO#) BASOPHIL # (test code 0.1 K/mm3 0.0-0.2 N = BA#) MANUAL DIFF REQUIRED NO DIFF/SCN CRITERIA SLIDE R EVIEW (test code = MDIFF) CONSISTA NT WITH AUTO DIFFERENTIAL. UA RFLX MICR CULT IF [id number] 22:39:00 Test Item Value Reference Range Interpretation Comments UA COLOR (test code = YELLOW discript YEL/STRAW COLU) UA APPEARANCE (test code CLEAR discript CLEAR = APPU) UA GLUCOSE DIPSTICK (test TRACE mg/dL NEG code = DGLUU) UA BILIRUBIN DIPSTICK NEGATIVE mg/dL NEG (test code = BILU) UA KETONE DIPSTICK (test NEGATIVE mg/dL NEG code = KETU) UA SPECIFIC GRAVITY (test <=1.005 SG 1.005-1.030 code = SGU) UA BLOOD DIPSTICK (test NEGATIVE mg/DL NEG code = PAUL) UA PH DIPSTICK (test code 6.5 pH UNITS 5.0-7.0 = LAURA) UA PROTEIN DIPSTICK (test NEGATIVE mg/dL NEG code = PROU) UA UROBILINIOGEN DIPSTICK 0.2 mg/dL <2.0 (test code = URO) UA NITRITE DIPSTICK (test NEGATIVE SCREEN NEG code = KARIE) UA LEUKOCYTE ESTERASE NEGATIVE Leuk/mcL NEGATIVE DIPSTICK (test code = LEUU) UA CULTURE NEEDED? (test NO, WBC<10 Criteria Culture CHK code = UACULT) SOURCE OF URINE: CLEAN CATCHIndication for culture: Dysuria/Frequency- CT ABD PELVIS W/[id number] 22:30:00 Name: LUBNA LEACH [facility] : 1965 Age/S: 54 / M [address] Unit #: [id number] Loc: [place] [address] Phys: Lino Ordaz MD Acct: [id number] Dis Date: Status: REG ER PHONE #: [phone] Exam Date: 10/14/2019 2220 FAX #: Reason: abdominal pain EXAMS: CPT: [id number] CT ABD PELVIS W/CONT 47082 EXAM: - CTABD PELVIS W/CONT HISTORY: Abdominal pain. TECHNIQUE: Axial tomograms through the abdomen and pelvis were obtained after intravenous contrast. Coronal and sagittal reformatted images are provided. This exam was performed according to our departmental dose-optimization program, which includes automated exposure control, adjustment of the mA and/or kV according to patient size and/or use of iterative reconstruction technique. COMPARISON: May 15, 2019. FINDINGS: The visualized lung bases are clear. No effusion. Status post cholecystectomy. There is nodularity to the liver surface suggestive of cirrhosis. The spleen is normal in size. There is no free fluid in abdomen or pelvis. The pancreas, adrenal glands and kidneys demonstrate no significant abnormalities. The appendix is not identified. The bowel is unremarkable. There is minimal retained fecal material throughout the length of the colon. Thereis no adenopathy. The osseous structures demonstrate degenerative change without focal lesion. There is calcified plaque involving the abdominal aorta and it's major branching vessels. IMPRESSION: Liver findings are reflective of cirrhosis. PAGE 1 Signed Report (CONTINUED) Name: LUBNA LEACH : 1965 Age/S: 54 / M [address] Unit #: [id number] Loc: [place] [address] Phys: Lino Ordaz MD Acct: [id number] Dis Date: Status: REG ER PHONE #: [phone] Exam Date: 10/14/20192219 FAX #: Reason: abdominal pain EXAMS: CPT: [id number] CT ABD PELVIS W/CONT 53021 <Continued> at 2230 Reported and signed by: Choco Wells M.D. CC: Lino Ordaz MD; Nuha BARRAZA Technologist:Leeroy Maldonado, RT(R)(CT)(MRI) CTDI: DLP: Trnscb Date/Time: 10/14/2019 (2229) [email or web address] Orig Print D/T: S: 10/14/2019 (2232) PAGE 2 Signed Report UA RFLX MICR CULT IF [id number] 22:21:00 Test Item Value Reference Range Interpretation Comments UA COLOR (test code = COLU) YELLOW discript YEL/STRAW UA APPEARANCE (test code = CLEAR discript CLEAR APPU) UA GLUCOSE DIPSTICK (test TRACE mg/dL NEG code = DGLUU) UA BILIRUBIN DIPSTICK (test NEGATIVE mg/dL NEG code = BILU) UA KETONE DIPSTICK (test NEGATIVE mg/dL NEG code = KETU) UA SPECIFIC GRAVITY (test <=1.005 SG 1.005-1.030 code = SGU) UA BLOOD DIPSTICK (test NEGATIVE mg/DL NEG code = PAUL) UA PH DIPSTICK (test code = 6.5 pH UNITS 5.0-7.0 LAURA) UA PROTEIN DIPSTICK (test NEGATIVE mg/dL NEG code = PROU) UA UROBILINIOGEN DIPSTICK 0.2 mg/dL <2.0 (test code = URO) UA NITRITE DIPSTICK (test NEGATIVE SCREEN NEG code = KARIE) UA LEUKOCYTE ESTERASE NEGATIVE Leuk/mcL NEGATIVE DIPSTICK (test code = LEUU) UA CULTURE NEEDED? (test Criteria Culture CHK code = UACULT) SOURCE OF URINE: CLEAN CATCHIndication for culture: Dysuria/Frequency COMPREHENSIVE METABOLIC [id number] 21:35:00 Test Item Value Reference Range Interpretation Comments SODIUM (test code = NA) 138 mmol/L 134-147 N POTASSIUM (test code = 3.8 mmol/L 3.4-5.0 N K) CHLORIDE (test code = 105 mmol/L 100-108 N CL) CARBON DIOXIDE (test 26 mmol/L 21-32 N code = CO2) ANION GAP (test code = 7.0 GAP calc 4.0-15.0 N GAP) GLUCOSE (test code = 242 MG/DL 70-110 H GLU) BLOOD UREA NITROGEN 6 MG/DL 7-18 L (test code = BUN) GLOMERULAR FILTRATION >=60 max estimate >60 RATE (test code = GFR) estGFR CREATININE (test code = 0.7 MG/DL 0.8-1.3 L CREAT) TOTAL PROTEIN (test code 7.1 G/DL 6.4-8.2 N = PROT) ALBUMIN (test code = 3.2 G/DL 3.4-5.0 L ALB) GLOBULIN (test code = 3.9 GM/dL GLOB) ALBUMIN/GLOBULIN RATIO 0.8 RATIO 1.2-2.2 L (test code = A/G) CALCIUM (test code = CA) 8.7 MG/DL 8.5-10.1 N BILIRUBIN TOTAL (test 0.60 MG/DL 0.2-1.2 N code = BILT) SGOT/AST (test code = 39 Unit/L 15-37 H AST) SGPT/ALT (test code = 62 Unit/L 12-78 N ALT) ALKALINE PHOSPHATASE 136 Unit/L 50-136 N TOTAL (test code = ALKP) - XR CHEST 1 [id number] 21:30:00 Name: LUBNA LEACH [facility] : 1965 Age/S: 54 / M [address] Unit #: [id number] Loc: [place] [address] Phys: Lino Ordaz MD Acct: [id number] Dis Date: Status: REG ER PHONE #: [phone] Exam Date: 10/14/20192112 FAX #: Reason: liver failure EXAMS: CPT: [id number] XR CHEST 1 V 90442 Fluoro Time: DAP (Gy m2): Air Kerma (mGy): LOCATION: Q15 HISTORY: 54-year-old male who presents with liver failure. COMMENT: A frontal chest radiograph was obtained at the bedside at 9:15 p.m., and is compared to a study of June 30, 2019. The lungs are clear and well-aerated. The cardiac silhouette, danyel, and mediastinum are within normal limits. The skeleton is intact, and the surrounding soft tissues are unremarkable. Cardiac monitoring leads are present. IMPRESSION: Unremarkable portable examination of the chest. at 2129 Reported and signed by: Torsten Carlos M.D. CC: Lino Ordaz MD; Nuha BARRAZA PAGE 1 Signed Report Name: LUBNA LEACH [facility] : 1965 Age/S: 54 / M [address] Unit #: [id number] Loc: [place] [address] Phys: Lino Ordaz MD Acct: [id number] Dis Date: Status: REG ER PHONE #: [phone] Date: 10/14/20192112 FAX #: Reason: liver failure EXAMS: CPT: [id number] XR CHEST 1 V 52418 Fluoro Time: DAP (Gy m2): Air Kerma (mGy): <Continued> Technologist: Farooq Lang RT(R)(CT) Trnscb Date/Time: 10/14/2019 (2129) [email or web address] Orig Print D/T: S: 10/14/2019 (2133) PAGE 2 Signed ReportCBC W/AUTO [id number] 21:25:00 Test Item Value Reference Range Interpretation Comments WHITE BLOOD CELL (test code = 14.0 K/mm3 3.5-11.0 H WBC) RED BLOOD CELL (test code = RBC) 4.96 M/mm3 4.70-6.10 N HEMOGLOBIN (test code = HGB) 16.1 G/DL 12.3-15.9 H HEMATOCRIT (test code = HCT) 45.7 % 35.8-46.7 N MEAN CELL VOLUME (test code = 92.1 Fl 86.3-98.9 N MCV) MEAN CELL HGB (test code = MCH) 32.5 pg 28.9-34.4 N MEAN CELL HGB CONCETRATION (test 35.2 G/DL 32.1-34.5 H code = MCHC) RED CELL DISTRIBUTION WIDTH (test 13.1 SD 11.5-14.5 N code = RDW) PLATELET COUNT (test code = PLT) 213.0 K/mm3 150-450 N MEAN PLATELET VOLUME (test code = 10.90 fL 7.0-9.6 H MPV) NEUTROPHIL % (test code = NT%) % 40-76 N LYMPHOCYTE % (test code = LY%) % 20.5-51.1 N MONOCYTE % (test code = MO%) % 1.7-9.3 H EOSINOPHIL % (test code = EO%) % 0.0-6.0 N BASOPHIL % (test code = BA%) % 0.0-2.0 N NEUTROPHIL # (test code = NT#) K/mm3 1.8-7.6 H LYMPHOCYTE # (test code = LY#) K/mm3 0.6-3.0 H MONOCYTE # (test code = MO#) K/mm3 0.2-1.5 H EOSINOPHIL # (test code = EO#) K/mm3 0.0-0.4 N BASOPHIL # (test code = BA#) K/mm3 0.0-0.2 N MANUAL DIFF REQUIRED (test code = DIFF/SCN CRITERIA MDIFF) COMPREHENSIVE METABOLIC [id number] 21:22:00 Test Item Value Reference Range Interpretation Comments SODIUM (test code = NA) 138 mmol/L 134-147 N POTASSIUM (test code = K) 3.8 mmol/L 3.4-5.0 N CHLORIDE (test code = CL) 105 mmol/L 100-108 N CARBON DIOXIDE (test code = CO2) 26 mmol/L 21-32 N ANION GAP (test code = GAP) 7.0 GAP calc 4.0-15.0 N GLUCOSE (test code = GLU) 242 MG/DL 70-110 H BLOOD UREA NITROGEN (test code = 6 MG/DL 7-18 L BUN) GLOMERULAR FILTRATION RATE (test estGFR >60 code = GFR) CREATININE (test code = CREAT) MG/DL 0.8-1.3 TOTAL PROTEIN (test code = PROT) G/DL 6.4-8.2 ALBUMIN (test code = ALB) G/DL 3.4-5.0 GLOBULIN (test code = GLOB) GM/dL ALBUMIN/GLOBULIN RATIO (test RATIO 1.2-2.2 code = A/G) CALCIUM (test code = CA) 8.7 MG/DL 8.5-10.1 N BILIRUBIN TOTAL (test code = MG/DL 0.2-1.2 BILT) SGOT/AST (test code = AST) Unit/L 15-37 SGPT/ALT (test code = ALT) Unit/L 12-78 ALKALINE PHOSPHATASE TOTAL (test Unit/L 50-136 code = ALKP) CBC W/AUTO [id number] 13:44:00 Test Item Value Reference Range Interpretation Comments WHITE BLOOD CELL (test 13.4 K/mm3 3.5-11.0 H code = WBC) RED BLOOD CELL (test 5.55 M/mm3 4.70-6.10 N code = RBC) HEMOGLOBIN (test code 17.7 G/DL 12.3-15.9 H = HGB) HEMATOCRIT (test code 50.7 % 35.8-46.7 H = HCT) MEAN CELL VOLUME (test 91.4 Fl 86.3-98.9 N code = MCV) MEAN CELL HGB (test 31.9 pg 28.9-34.4 N code = MCH) MEAN CELL HGB 34.9 G/DL 32.1-34.5 H CONCETRATION (test code = MCHC) RED CELL DISTRIBUTION 13.2 SD 11.5-14.5 N WIDTH (test code = RDW) PLATELET COUNT (test 217.0 K/mm3 150-450 N code = PLT) MEAN PLATELET VOLUME 11.30 fL 7.0-9.6 H (test code = MPV) NEUTROPHIL % (test 58.9 % 40-76 N code = NT%) LYMPHOCYTE % (test 25.3 % 20.5-51.1 N code = LY%) MONOCYTE % (test code 13.5 % 1.7-9.3 H = MO%) EOSINOPHIL % (test 1.6 % 0.0-6.0 N code = EO%) BASOPHIL % (test code 0.7 % 0.0-2.0 N = BA%) NEUTROPHIL # (test 7.89 K/mm3 1.8-7.6 H code = NT#) LYMPHOCYTE # (test 3.4 K/mm3 0.6-3.0 H code = LY#) MONOCYTE # (test code 1.8 K/mm3 0.2-1.5 H = MO#) EOSINOPHIL # (test 0.2 K/mm3 0.0-0.4 N code = EO#) BASOPHIL # (test code 0.1 K/mm3 0.0-0.2 N = BA#) MANUAL DIFF REQUIRED NO DIFF/SCN CRITERIA SLIDE R DAVIDIEW (test code = MDIFF) CONSISTA NT WITH AUTO DIFFERENTIAL. UA RFLX MICR CULT IF [id number] 13:13:00 Test Item Value Reference Range Interpretation Comments UA COLOR (test code = COLU) YELLOW discript YEL/STRAW UA APPEARANCE (test code = CLEAR discript CLEAR APPU) UA GLUCOSE DIPSTICK (test 3+ mg/dL NEG code = DGLUU) UA BILIRUBIN DIPSTICK (test NEGATIVE mg/dL NEG code = BILU) UA KETONE DIPSTICK (test NEGATIVE mg/dL NEG code = KETU) UA SPECIFIC GRAVITY (test 1.010 SG 1.005-1.030 code = SGU) UA BLOOD DIPSTICK (test NEGATIVE mg/DL NEG code = PAUL) UA PH DIPSTICK (test code = 5.5 pH UNITS 5.0-7.0 LAURA) UA PROTEIN DIPSTICK (test NEGATIVE mg/dL NEG code = PROU) UA UROBILINIOGEN DIPSTICK 0.2 mg/dL <2.0 (test code = URO) UA NITRITE DIPSTICK (test NEGATIVE SCREEN NEG code = KARIE) UA LEUKOCYTE ESTERASE NEGATIVE Leuk/mcL NEGATIVE DIPSTICK (test code = LEUU) SOURCE OF URINE: CLEAN CATCHIndication for culture: Dysuria/FrequencyBASIC METABOLIC [id number] 13:12:00 Test Item Value Reference Range Interpretation Comments SODIUM (test code = NA) 136 mmol/L 134-147 N POTASSIUM (test code = 4.5 mmol/L 3.4-5.0 N K) CHLORIDE (test code = 103 mmol/L 100-108 N CL) CARBON DIOXIDE (test 26 mmol/L 21-32 N code = CO2) ANION GAP (test code = 7.0 GAP calc 4.0-15.0 N GAP) GLUCOSE (test code = 192 MG/DL 70-110 H GLU) BLOOD UREA NITROGEN 11 MG/DL 7-18 N (test code = BUN) GLOMERULAR FILTRATION >=60 max estimate >60 RATE (test code = GFR) estGFR CREATININE (test code = 0.9 MG/DL 0.8-1.3 N CREAT) CALCIUM (test code = CA) 9.4 MG/DL 8.5-10.1 N UA RFLX MICR CULT IF [id number] 13:12:00 Test Item Value Reference Range Interpretation Comments UA COLOR (test code = COLU) YELLOW discript YEL/STRAW UA APPEARANCE (test code = CLEAR discript CLEAR APPU) UA GLUCOSE DIPSTICK (test 3+ mg/dL NEG code = DGLUU) UA BILIRUBIN DIPSTICK (test NEGATIVE mg/dL NEG code = BILU) UA KETONE DIPSTICK (test NEGATIVE mg/dL NEG code = KETU) UA SPECIFIC GRAVITY (test 1.010 SG 1.005-1.030 code = SGU) UA BLOOD DIPSTICK (test NEGATIVE mg/DL NEG code = PAUL) UA PH DIPSTICK (test code = 5.5 pH UNITS 5.0-7.0 LAURA) UA PROTEIN DIPSTICK (test NEGATIVE mg/dL NEG code = PROU) UA UROBILINIOGEN DIPSTICK 0.2 mg/dL <2.0 (test code = URO) UA NITRITE DIPSTICK (test NEGATIVE SCREEN NEG code = KARIE) UA LEUKOCYTE ESTERASE NEGATIVE Leuk/mcL NEGATIVE DIPSTICK (test code = LEUU) UA CULTURE NEEDED? (test Criteria Culture CHK code = UACULT) SOURCE OF URINE: CLEAN CATCHIndication for culture: Dysuria/FrequencyCBC W/AUTO [id number] 12:59:00 Test Item Value Reference Range Interpretation Comments WHITE BLOOD CELL (test code = 13.4 K/mm3 3.5-11.0 H WBC) RED BLOOD CELL (test code = RBC) 5.55 M/mm3 4.70-6.10 N HEMOGLOBIN (test code = HGB) 17.7 G/DL 12.3-15.9 H HEMATOCRIT (test code = HCT) 50.7 % 35.8-46.7 H MEAN CELL VOLUME (test code = 91.4 Fl 86.3-98.9 N MCV) MEAN CELL HGB (test code = MCH) 31.9 pg 28.9-34.4 N MEAN CELL HGB CONCETRATION (test 34.9 G/DL 32.1-34.5 H code = MCHC) RED CELL DISTRIBUTION WIDTH (test 13.2 SD 11.5-14.5 N code = RDW) PLATELET COUNT (test code = PLT) 217.0 K/mm3 150-450 N MEAN PLATELET VOLUME (test code = 11.30 fL 7.0-9.6 H MPV) NEUTROPHIL % (test code = NT%) % 40-76 N LYMPHOCYTE % (test code = LY%) % 20.5-51.1 N MONOCYTE % (test code = MO%) % 1.7-9.3 H EOSINOPHIL % (test code = EO%) % 0.0-6.0 N BASOPHIL % (test code = BA%) % 0.0-2.0 N NEUTROPHIL # (test code = NT#) K/mm3 1.8-7.6 H LYMPHOCYTE # (test code = LY#) K/mm3 0.6-3.0 H MONOCYTE # (test code = MO#) K/mm3 0.2-1.5 H EOSINOPHIL # (test code = EO#) K/mm3 0.0-0.4 N BASOPHIL # (test code = BA#) K/mm3 0.0-0.2 N MANUAL DIFF REQUIRED (test code = DIFF/SCN CRITERIA MDIFF) - CT HEAD/BRAIN W/O [id number] 12:55:00 Name: LUBNA LEACH [facility] : 1965 Age/S: 54 / M [address] [address] Unit #: [id number] Loc: [place] [address] Phys: Nito Golden MD Acct: [id number] Dis Date: Status: REG ER PHONE #: [phone] Exam Date: 08/08/2019 1230 FAX #: Reason: headache EXAMS: CPT: [id number] CT HEAD/BRAIN W/O CONT 28099 Site ID: [id number] CT head TECHNIQUE: CT examination of the brain was performed without contrast on a helical scanner. Scanning conducted from skull base to vertex in the axial plane acquiring 5mm slice thickness. Coronal and sagittal two-dimensional reformatted imaging performed. CT dose lowering technique utilized, with adjustment of MA/kV according to patient size and automated exposure control. CLINICAL HISTORY: Headache FINDINGS: No acute intracranial hemorrhage, hydrocephalus or midline shift demonstrated. No extra-axial fluid collection. Cerebral and cerebellar hemispheres are well-formed, with bifrontal and cerebellar atrophy demonstrated. No acute cerebral edema or territorial infarction. The bony calvarium and visualized paranasal sinuses are normal. Multiple regions of nodular-type scalp thickening are present, nonspecific by CT. IMPRESSION: No acute intracranial abnormality at 9685 Reported and signed by: Danielle Verduzco M.D. CC: Nito Golden MD Technologist:Refugio Armenta, RT(R)(CT) CTDI: DLP: Trnscb Date/Time: 08/08/2019 (0673) [email or web address] Orig Print D/T: S: 08/08/2019 (5300) PAGE 1 Signed ReportTROPONIN I RAPID 2019-07-01 00:13:00 Test Item Value Reference Range Interpretation Comments TROPONIN I RAPID 0.00 ng/mL 0.00-0.08 N - The use o f serial (test code = sampling and te sting TROPIRAP) protocol is a recommended pra ctice- An elevated tro ponin level alone is often not sufficient for diagnosis of my ocardial infarction. HEPATIC FUNCTION [id number] 00:11:00 Test Item Value Reference Range Interpretation Comments TOTAL PROTEIN (test code = PROT) 7.3 G/DL 6.4-8.2 N ALBUMIN (test code = ALB) 3.0 G/DL 3.4-5.0 L BILIRUBIN TOTAL (test code = BILT) 0.60 MG/DL 0.2-1.2 N BILIRUBIN DIRECT (test code = 0.30 MG/DL 0.00-0.30 N BILD) BILIRUBIN INDIRECT (test code = 0.30 MG/DL 0.2-1.2 N BILIND) SGOT/AST (test code = AST) 69 Unit/L 15-37 H SGPT/ALT (test code = ALT) 91 Unit/L 12-78 H ALKALINE PHOSPHATASE TOTAL (test 187 Unit/L 50-136 H code = ALKP) CREATINE KINASE (CK)2019-07-01 00:11:00 Test Item Value Reference Range Interpretation Comments CREATINE KINASE (CK) (test code = 27 Unit/L 26-192 N CK) [id number] 00:11:00 Test Item Value Reference Range Interpretation Comments LIPASE (test code = LIP) 230 Unit/L 114-286 N NT PRO-BRAIN NATRIURETIC [id number] 00:11:00 Test Item Value Reference Range Interpretation Comments NT PRO-BRAIN NATRIURETIC PEPTI 137 PG/ML 0-100 H (test code = PROBNP) CHEMISTRY 8 [id number] 00:08:00 Test Item Value Reference Range Interpretation Comments ISTAT-SODIUM (test code = NAP) mmol/L 135-146 ISTAT-POTASSIUM (test code = KP) mmol/L 3.5-4.9 ISTAT-CHLORIDE (test code = CLP) mmol/L 98-109 ISTAT-CARBON DIOXIDE (test code = mmol/L 24-29 L ISTAT-CO2) ISTAT CALCIUM IONIZED (test code = mmol/L 1.12-1.32 ISTAT-THERESE) ISTAT-GLUCOSE (test code = GLUP) mg/dL 70-105 H ISTAT-BUN (test code = BUNP) mg/dL 8-26 N BEDSIDE CREATININE (test code = mg/dL 0.6-1.3 N CREATBED) GLOMERULAR FILTRATION RATE POC (test 124 56-130 N code = GFRBED) CHEMISTRY 8 [id number] 00:08:00 Test Item Value Reference Range Interpretation Comments ISTAT-SODIUM (test code = NAP) 132 mmol/L 135-146 L ISTAT-POTASSIUM (test code = KP) 4.3 mmol/L 3.5-4.9 N ISTAT-CHLORIDE (test code = CLP) 100 mmol/L 98-109 N ISTAT-CARBON DIOXIDE (test code = 21 mmol/L 24-29 L ISTAT-CO2) ISTAT CALCIUM IONIZED (test code 1.15 mmol/L 1.12-1.32 N = ISTAT-THERESE) ISTAT-GLUCOSE (test code = GLUP) 405 mg/dL 70-105 H ISTAT-BUN (test code = BUNP) 9 mg/dL 8-26 N BEDSIDE CREATININE (test code = 0.7 mg/dL 0.6-1.3 N CREATBED) GLOMERULAR FILTRATION RATE POC 124 56-130 N (test code = GFRBED) - XR CHEST 1 [id number] 00:03:00 Name: LUBNA LEACH [facility] : 1965 Age/S: 54 / M [id number] Unit #: [id number] Loc: [place] [address] Phys: Jethro Rosenthal MD Acct: [id number] Dis Date: Status: REG ER PHONE #: [phone] Exam Date: 06/30/2019 0000 FAX #: Reason: SOB EXAMS: CPT: [id number] XR CHEST 1 V [id number] Fluoro Time: DAP (Gy m2): Air Kerma (mGy): EXAM: - XR CHEST 1 V HISTORY: Shortness of breath. COMPARISON: May 14, 2010. FINDINGS: Single AP view of the chest is provided. Heart size and vascularity are within normal limits. The lungs are clear of focal consolidation. No effusion, pneumothorax, or acute osseous abnormality. IMPRESSION: No radiographic evidence of acute cardiopulmonary process. at 0003 Reported and signed by: Choco Valenzuela M.D. CC: PAGE 1 Signed Report Name: LUBNA LEACH [facility] : 1965 Age/S: 54 / M [id number]: [id number] Loc: [place] [address] Phys: Jethro Rosenthal MD Acct: [id number] Dis Date: Status:REG ER PHONE #: [phone] Exam Date: 06/30/2019 0000 FAX #: Reason: SOB EXAMS: CPT: [id number] XR CHEST 1 V [id number] Fluoro Time: DAP (Gy m2): Air Kerma (mGy): <Continued> Technologist: CHILO Melgoza,RVS Trnscb Date/Time: 07/01/2019 (0003) [email or web address] Orig Print D/T: S: 07/01/2019 (0007) PAGE 2 S[facility] ReportN[facility] W/O [id number] 23:55:00 Test Item Value Reference Range Interpretation Comments WHITE BLOOD CELL (test code = 15.1 K/mm3 3.5-11.0 H WBC) RED BLOOD CELL (test code = RBC) 5.20 M/mm3 4.70-6.10 N HEMOGLOBIN (test code = HGB) 16.7 G/DL 12.3-15.9 H HEMATOCRIT (test code = HCT) 47.4 % 35.8-46.7 H MEAN CELL VOLUME (test code = 91.2 Fl 86.3-98.9 N MCV) MEAN CELL HGB (test code = MCH) 32.1 pg 28.9-34.4 N MEAN CELL HGB CONCETRATION (test 35.2 G/DL 32.1-34.5 H code = MCHC) RED CELL DISTRIBUTION WIDTH (test 13.8 SD 11.5-14.5 N code = RDW) PLATELET COUNT (test code = PLT) 240.0 K/mm3 150-450 N MEAN PLATELET VOLUME (test code = 11.20 fL 7.0-9.6 H MPV) - XR CHEST 1 [id number] 11:34:00 Name: LUBNA LEACH [facility] : 1965 Age/S: 54 / M [id number] Unit #: [id number] Loc: [place] [address] Phys: Tejas Feliciano MD Acct: [id number] Dis Date: Status: REG ER PHONE #: [phone] Exam Date: 06/26/2019 110 FAX #: Reason: sore throat, dyspnea EXAMS: CPT: [id number] XR CHEST 1 V 87287 Fluoro Time: DAP (Gy m2): Air Kerma (mGy): EXAMINATION: - XR CHEST 1 V. LOCATION: S17. HISTORY: Sore throat, dyspnea. COMPARISON: Chest x-ray 05/15/19. FINDINGS: Examination is limited due to portable technique. Cardiac silhouette/Mediastinal contour: Within normal limits. Atherosclerotic calcification of aortic arch and uncoiling of thoracic aorta. Lungs: No focal consolidation. No large pleural effusion. Osseous Structures: Degenerative changes of thoracic spine. IMPRESSION: No focal consolidation. at 1134 Reported and signed by: Ian Ku M.D. CC: Tejas Feliciano MD PAGE 1 Signed Report Name: LUBNA LEACH [facility] : 1965 Age/S: 54 / M [address] [address] Unit #: [id number] Loc: [place] [address] Phys: Tejas Feliciano MD Acct: [id number] Dis Date: Status: REG ER PHONE #: [phone] Exam Date: 06/26/2019 1106 FAX #: Reason: sore throat, dyspnea EXAMS: CPT: [id number] XR CHEST 1 V [id number] Fluoro Time: DAP (Gy m2): Air Kerma (mGy): <Continued> Technologist: Refugio Armenta, RT(R)(CT) Trnscb Date/Time: 06/26/2019 (1134) t.SDR.[email or web address] Orig Print D/T: S: 06/26/2019 (1132) PAGE 2 Signed ReportCOMPREHENSIVE METABOLIC [id number] 11:27:00 Test Item Value Reference Range Interpretation Comments SODIUM (test code = NA) 136 mmol/L 134-147 N POTASSIUM (test code = 4.0 mmol/L 3.4-5.0 N K) CHLORIDE (test code = 102 mmol/L 100-108 N CL) CARBON DIOXIDE (test 27 mmol/L 21-32 N code = CO2) ANION GAP (test code = 7.0 GAP calc 4.0-15.0 N GAP) GLUCOSE (test code = 247 MG/DL 70-110 H GLU) BLOOD UREA NITROGEN 4 MG/DL 7-18 L (test code = BUN) GLOMERULAR FILTRATION >=60 max estimate >60 RATE (test code = GFR) estGFR CREATININE (test code = 0.9 MG/DL 0.8-1.3 N CREAT) TOTAL PROTEIN (test code 7.8 G/DL 6.4-8.2 N = PROT) ALBUMIN (test code = 3.5 G/DL 3.4-5.0 N ALB) GLOBULIN (test code = 4.3 GM/dL GLOB) ALBUMIN/GLOBULIN RATIO 0.8 RATIO 1.2-2.2 L (test code = A/G) CALCIUM (test code = CA) 9.3 MG/DL 8.5-10.1 N BILIRUBIN TOTAL (test 0.90 MG/DL 0.2-1.2 N code = BILT) SGOT/AST (test code = 80 Unit/L 15-37 H AST) SGPT/ALT (test code = 98 Unit/L 12-78 H ALT) ALKALINE PHOSPHATASE 183 Unit/L 50-136 H TOTAL (test code = ALKP) [id number] 11:27:00 Test Item Value Reference Range Interpretation Comments LIPASE (test code = LIP) 88 Unit/L 114-286 L CBC W/AUTO [id number] 11:09:00 Test Item Value Reference Range Interpretation Comments WHITE BLOOD CELL (test code = 13.0 K/mm3 3.5-11.0 H WBC) RED BLOOD CELL (test code = RBC) 5.32 M/mm3 4.70-6.10 N HEMOGLOBIN (test code = HGB) 16.9 G/DL 12.3-15.9 H HEMATOCRIT (test code = HCT) 49.4 % 35.8-46.7 H MEAN CELL VOLUME (test code = 92.9 Fl 86.3-98.9 N MCV) MEAN CELL HGB (test code = MCH) 31.8 pg 28.9-34.4 N MEAN CELL HGB CONCETRATION (test 34.2 G/DL 32.1-34.5 N code = MCHC) RED CELL DISTRIBUTION WIDTH (test 13.6 SD 11.5-14.5 N code = RDW) PLATELET COUNT (test code = PLT) 171.0 K/mm3 150-450 N MEAN PLATELET VOLUME (test code = 11.40 fL 7.0-9.6 H MPV) NEUTROPHIL % (test code = NT%) 67.4 % 40-76 N LYMPHOCYTE % (test code = LY%) 22.8 % 20.5-51.1 N MONOCYTE % (test code = MO%) 8.9 % 1.7-9.3 N EOSINOPHIL % (test code = EO%) 0.7 % 0.0-6.0 N BASOPHIL % (test code = BA%) 0.2 % 0.0-2.0 N NEUTROPHIL # (test code = NT#) 8.73 K/mm3 1.8-7.6 H LYMPHOCYTE # (test code = LY#) 3.0 K/mm3 0.6-3.0 N MONOCYTE # (test code = MO#) 1.2 K/mm3 0.2-1.5 N EOSINOPHIL # (test code = EO#) 0.1 K/mm3 0.0-0.4 N BASOPHIL # (test code = BA#) 0.0 K/mm3 0.0-0.2 N MANUAL DIFF REQUIRED (test code = NO DIFF/SCN CRITERIA MDIFF) ANTINUCLEAR ANTIBODIES [id number] 02:42:00 Test Item Value Reference Range Interpretation Comments SEAN DIRECT (test code Negative () = ANADIR) Neg ative <1:80 Borderline 1:8 0 Positive >1:80Performed At: [address] [id number] ivan Womack MD Ph:[phone] ACUTE HEPATITIS [id number] 02:42:00 Test Item Value Reference Range Interpretation Comments AB HEPATITIS A IGM NON REACTIVE NON REACT. Testing d one at (test code = INDEX CLEAR [place]OO[place] ONAL HAVMAB) [facility] [address] [place] [address] AB HEPATITIS B <3.1 mIU/mL Immunity>9.9 A Status of SURFACE (test code Immunity = HBSAB) Anti-H Bs Level --- I ncon sistent with Immunity 0.0 - 9.9Consistent w ith Immunity >9.9Performed A t: [facility] [place] [address] [place], [place] [id number] Kyle L MD Ph:[phone] ST PERFORMED AT [facility] [address] [address] [place], [place] [address] AG HEPATITIS B NON REACTIVE NonReactive Testing done at SURFACE (test code INDEX [facility] [place] [facility] = HBSAG) [facility] [address] [place] [address] [place] [address] AB HEPATITIS B NON REACTIVE NON REACT. Testing done at CORE IGM (test INDEX CLEAR HOOKS RE GIONAL code = HBCMAB) [facility] [address] [place] [address], [place] [address] AB HEPATITIS C REACTIVE INDEX NON REACT. A Testing don e at (test code = CLEAR HOOKS [place] ONAL HCVAB) [facility] [address] [place] [address]. [place] [address] AB [id number] 02:42:00 Test Item Value Reference Range Interpretation Comments AB <20.0 Units 0.0-20.0 ANTI-MITOCHONDRIAL Ne gative 0.0 - (test code = 20.0 MITOAB) Equi vocal 20.1 - 24.9 Positive >24.9Mitochondr ial (M2) Antibodies are found in 90-96% ofpatien ts with primary biliary cirrhosis.Perfo rmed At: [facility] [address] [id number] ra Ev GOMEZ Ph:[phone] ANTINUCLEAR ANTIBODIES [id number] 16:45:00 Test Item Value Reference Range Interpretation Comments SEAN DIRECT (test code Negative () = ANADIR) Neg ative <1:80 Borderline 1:8 0 Positive >1:80Performed At: [facility] [address] [id number] ivan Womack MD Ph:[phone] ACUTE HEPATITIS [id number] 16:45:00 Test Item Value Reference Range Interpretation Comments AB HEPATITIS A IGM NON REACTIVE NON REACT. Testing d one at (test code = INDEX CLEAR [place] ONAL HAVMAB) [facility] [address] [place] [address] AB HEPATITIS B <3.1 mIU/mL Immunity>9.9 A Status of SURFACE (test code Immunity = HBSAB) Anti-H Bs Level --- I ncon sistent with Immunity 0.0 - 9.9Consistent w ith Immunity >9.9Performed A t: HD [facility] [address] [place], [place] [id number] Den Womack MD Ph:[phone] ST PERFORMED AT [facility] [address] [place], [place] [address] AG HEPATITIS B NON REACTIVE NonReactive Testing done at SURFACE (test code INDEX [facility] [place] [facility] = HBSAG) [facility] [address] [place] [address]. [place] [address] AB HEPATITIS B NON REACTIVE NON REACT. Testing done at CORE IGM (test INDEX CLEAR HOOKS RE GIONAL code = HBCMAB) [facility] [address] [place] [address]. [place], [place] [address] AB HEPATITIS C REACTIVE INDEX NON REACT. A Testing don e at (test code = CLEAR HOOKS [place] ONAL HCVAB) [facility] [address] [place] [address]. [facility], [place] [address] AB [id number] 16:45:00 Test Item Value Reference Range Interpretation Comments AB ANTI-MITOCHONDRIAL (test code = Units 0.0-20.0 MITOAB) [id number] 21:51:00 Test Item Value Reference Range Interpretation Comments GLUBED (test code = GLUBED) 168 mg/dL 70-110 H [id number] 15:58:00 Test Item Value Reference Range Interpretation Comments GLUBED (test code = GLUBED) 168 mg/dL 70-110 H [id number] 07:22:00 Test Item Value Reference Range Interpretation Comments GLUBED (test code = GLUBED) 113 mg/dL 70-110 H CBC W/AUTO [id number] 06:46:00 Test Item Value Reference Range Interpretation Comments WHITE BLOOD CELL (test code = 8.1 K/mm3 4.5-11.0 N WBC) RED BLOOD CELL (test code = 4.98 M/mm3 4.40-5.90 N RBC) HEMOGLOBIN (test code = HGB) 15.7 gm/dL 13.0-17.0 N HEMATOCRIT (test code = HCT) 44.3 % 36.0-48.0 N MEAN CELL VOLUME (test code = 89.0 UM3 80.0-94.0 N MCV) MEAN CELL HGB (test code = MCH) 31.5 UUG 25.5-32.5 N MEAN CELL HGB CONCETRATION 35.4 gm/dL 29.0-35.5 N (test code = MCHC) RED CELL DISTRIBUTION WIDTH 12.6 % 11.5-15.0 N (test code = RDW) RED CELL DISTRIBUTION WIDTH SD 41.1 fL 34.8-50.2 N (test code = RDW-SD) PLATELET COUNT (test code = 99 K/mm3 150-400 L PLT) MEAN PLATELET VOLUME (test code 13.4 fl 7.4-10.4 H = MPV) NEUTROPHIL % (test code = NT%) 28.2 % 49.0-76.0 L IMMATURE GRANULOCYTE % (test 1.6 % 0.0-0.4 H code = IG%) LYMPHOCYTE % (test code = LY%) 55.2 % 23.0-38.0 H MONOCYTE % (test code = MO%) 12.1 % 1.0-10.0 H EOSINOPHIL % (test code = EO%) 2.2 % 1.0-5.0 N BASOPHIL % (test code = BA%) 0.7 % 0.0-1.0 N NEUTROPHIL # (test code = NT#) 2.3 K/mm3 2.4-6.3 L IMMATURE GRANULOCYTE # (test 0.13 x10 3/uL 0.00-0.07 H code = IG#) LYMPHOCYTE # (test code = LY#) 4.5 K/mm3 1.2-4.0 H MONOCYTE # (test code = MO#) 1.0 K/mm3 0.0-0.6 H EOSINOPHIL # (test code = EO#) 0.2 K/MM3 0.0-0.7 N BASOPHIL # (test code = BA#) 0.1 K/mm3 0.0-0.2 N COMPREHENSIVE METABOLIC [id number] 06:12:00 Test Item Value Reference Range Interpretation Comments SODIUM (test code = NA) 137 mmol/l 134.0-147.0 N POTASSIUM (test code = K) 4.1 mmol/L 3.6-5.2 N CHLORIDE (test code = CL) 104 mmol/l 98.0-107.0 N CARBON DIOXIDE (test code = CO2) 24.6 mmol/l 21.0-33.0 N ANION GAP (test code = GAP) 12.5 0-20 N GLUCOSE (test code = GLU) 109 mg/dl 70.0-110.0 N BLOOD UREA NITROGEN (test code = 14 mg/dl 7.0-18.0 N BUN) CREATININE (test code = CREAT) 0.71 mg/dL 0.60-1.30 N GFR NON BLACK (test code = 122 mL/min 90-95 H GFRNONBLACK) GFR BLACK (test code = GFRBLACK) 148 mL/min 109-115 H TOTAL PROTEIN (test code = PROT) 6.3 gm/dL 6.4-8.2 L ALBUMIN (test code = ALB) 2.8 gm/dl 3.2-4.7 L CALCIUM (test code = CA) 8.6 mg/dl 8.0-10.5 N BILIRUBIN TOTAL (test code = 0.9 mg/dl 0.0-1.0 N BILT) SGOT/AST (test code = AST) 169 Units/L 15.0-37.0 H SGPT/ALT (test code = ALT) 164 Units/L 12.0-78.0 H ALKALINE PHOSPHATASE TOTAL (test 158 Units/L 50.0-136.0 H code = ALKP) [id number] 06:12:00 Test Item Value Reference Range Interpretation Comments MAGNESIUM (test code = MAG) 2.0 mg/dl 1.8-2.4 N [id number] 23:47:00 Test Item Value Reference Range Interpretation Comments GLUBED (test code = GLUBED) 179 mg/dL 70-110 H ANTINUCLEAR ANTIBODIES [id number] 16:47:00 Test Item Value Reference Range Interpretation Comments SEAN DIRECT (test code = ANADIR) NEGATIVE ACUTE HEPATITIS [id number] 16:47:00 Test Item Value Reference Range Interpretation Comments AB HEPATITIS A IGM NON REACTIVE NON REACT. Testing d one at (test code = INDEX CLEAR HOOKS [place] HAVMAB) [facility] [address] [place] [address], [place] [address] AB HEPATITIS B mIU/mL Immune >9.9 SURFACE (test code = HBSAB) AG HEPATITIS B NON REACTIVE NonReactive Testing done at SURFACE (test code INDEX [facility] [place] [facility] = HBSAG) [facility] [address] [place] [address], [place] [address] AB HEPATITIS B NON REACTIVE NON REACT. Testing done at CORE IGM (test INDEX CLEAR HOOKS RE GIONAL code = HBCMAB) [facility] [address] [place] [address]. [place] [address] AB HEPATITIS C REACTIVE INDEX NON REACT. A Testing don e at (test code = CLEAR HOOKS [place] ONAL HCVAB) [facility] [address] [place] [address]. [place] [address] AB [id number] 16:47:00 Test Item Value Reference Range Interpretation Comments AB ANTI-MITOCHONDRIAL (test code = Units 0.0-20.0 MITOAB) AB HEPATITIS A [id number] 16:41:00 Test Item Value Reference Range Interpretation Comments AB HEPATITIS A IGM (test NON REACTIVE INDEX NON REACT. code = HAVMAB) AG HEPATITIS B [id number] 16:41:00 Test Item Value Reference Range Interpretation Comments AG HEPATITIS B SURFACE NON REACTIVE INDEX NonReactive (test code = HBSAG) AB HEPATITIS B CORE [id number] 16:41:00 Test Item Value Reference Range Interpretation Comments AB HEPATITIS B CORE IGM NON REACTIVE INDEX NON REACT. (test code = HBCMAB) AB HEPATITIS [id number] 16:41:00 Test Item Value Reference Range Interpretation Comments AB HEPATITIS C (test code = REACTIVE INDEX NON REACT. A HCVAB) [id number] 16:40:00 Test Item Value Reference Range Interpretation Comments GLUBED (test code = GLUBED) 167 mg/dL 70-110 H [id number] 13:52:00 Test Item Value Reference Range Interpretation Comments GLUBED (test code = GLUBED) 139 mg/dL 70-110 H VITAMIN [id number] 13:03:00 Test Item Value Reference Range Interpretation Comments VITAMIN B12 (test code = VITB12) 697 pg/mL 193-986 N THYROID STIMULATING [id number] 13:03:00 Test Item Value Reference Range Interpretation Comments THYROID STIMULATING 1.83 IU/ML 0.47-5.01 N Result i s in HORMONE (test code = Interna tional TSH) Units/millilite r [id number] 12:40:00 Test Item Value Reference Range Interpretation Comments HGBA1C% (test code = HGBA1C%) 6.4 %A1C 4.8-6.0 H ESTIMATED AVERAGE GLUCOSE (test 137 MG/DL code = EAG) - US ABDOMEN [id number] 12:20:00 FAX: Shobha Beto Boland [phone] [place]: St: ADM FAX: Shobha ChongJoseLeslie [phone] Name: LUBNA LEACH [facility] : 1965 Age/S: 54/M [address] [facility] Unit #: [id number] Loc: JayneJACOBJayne [place], [place] Phys: Gael Garcia [address] Acct: [id number] Dis Date: Status: ADM IN PHONE #: [phone] Exam Date: 05/16/2019 1046 FAX #: [phone] Reason: Elevated LFT Report Has Been Amended EXAMS: CPT CODE: [id number] US ABDOMEN LTD 56755 Addendum - 05/16/2019 SIGNED 05/16/2019 ADDENDUM: [id number] US/USABDLTD Addendum: A typographical air occurred described in the common bile duct as ABNORMAL. The common bile duct is actually normal in appearance, measuring 5 mm in diameter. No stones are appreciated. at 1220 Reported and signed by: Torsten Smith M.D. Report ULTRASOUND: - US ABDOMEN LTD History: Elevated liver function tests Comparison: CT abdomen pelvis from yesterday on May 15, 2019. B-mode/Vegas scale imaging with color Doppler perfu zachary imaging and spectral analysis was performed. Normal aortic diameter found maximum measurement 1.5 cm. IVC intact with waveform normal on Doppler. Pancreas normal, seen almost since entirety. Liver echogenicity pattern is coarsened but homogeneous. Fatty changes suggested. Liver size 19.3 cm, mildly enlarged. Antegrade portal vein flow seen on color Doppler. Abnormal common bile duct at 5 mm. Tiny hepatic cyst in the right lobe at 1.5 cm, simple. The gallbladder has been removed. No fluid in the gallbladder fossa. The right kidney is 13 cm in length with no evidence of obstruction, large stones or cortical deformities. Normal perfusion on Doppler. The spleen is measured at 15.6 cm, mildly enlarged. No ascites found. PAGE 1 Signed Report (CONTINUED) FAX: Beto Urias [phone] [place]: St: [facility] FAX: Gael Larsen [phone] Name: LUBNA LEACH [facility] : 1965 Age/S: 54/M [address] [facility] Unit #: [id number] Loc: [place], [place] Phys: Gael Garcia [address] Acct: [id number] Dis Date: Status: ADM IN PHONE #: [phone] Exam Date: 05/16/2019 1046 FAX #: [phone] Reason: Elevated LFT Report Has Been Amended EXAMS: CPT CODE: [id number] US ABDOMEN LTD 11373 <Continued> Impression: No acute abnormality in the right upper quadrant. Liver size slightly enlarged with fatty changes. CT shows slightly nonsmooth margins suggesting the possibility of cirrhosis, as well. No ascites recognized, currently. Location: [facility] Electronically Signed by Stan Smith on 05/16/2019 at 1108 Reported and signed by: Torsten Smith M.D. CC: Beto Boland MD; Gael BARRAZA Technologist: CARLOS ALBERTO HU Trnndrd Date/Time/By: 05/16/2019 (7819) : By: Nathanael PAGE 2 Signed Report FAX: Beto Urias [phone] [place]: St: ADM FAX: Gael Larsen [phone] Name: LUBNA LEACH [facility] : 1965 Age/S: 54/M [address] [place] [address] Unit #: [id number] Loc: DIANA [place], [place] Phys: Gael Garcia [address] Acct: [id number] Dis Date: Status: ADM IN PHONE #: [phone] Exam Date: 05/16/2019 1046 FAX #: [phone] Reason: Elevated LFT Report Has Been Amended EXAMS: CPT CODE: [id number] US ABDOMEN LTD [address] <Continued> Orig Print D/T: S: 05/16/2019 (6183) PAGE 3 Signed Report- US ABDOMEN [id number] 11:08:00 FAX: Beto Urias [phone] [place]: St: ADM FAX: Leslie Larsen [phone] Name: LUBNA LEACH [facility] : 1965 Age/S: 54/M [address] [facility] Unit #: [id number] Loc: DIANA [place], [place] Phys: Gael Garcia [address] Acct: [id number] Dis Date: Status: ADM IN PHONE #: [phone] Exam Date: 05/16/2019 1046 FAX #: [phone] Reason: Elevated LFT EXAMS: CPT CODE: [id number] US ABDOMEN LTD [address] ULTRASOUND:- US ABDOMEN LTD History: Elevated liver function tests Comparison: CT abdomen pelvis from yesterday on May 15, 2019. B-mode/Vegas scale imaging with color Doppler perfusion imaging and spectral analysis was performed. Normal aortic diameter found maximum measurement 1.5 cm. IVC intact with waveform normal on Doppler. Pancreas normal, seen almost since entirety. Liver echogenicity pattern is coarsened but homogeneous. Fatty changes suggested. Liver size 19.3 cm, mildly enlarged. Antegrade portal vein flow seen on color Doppler. Abnormal common bile duct at 5 mm. Tiny hepatic cyst in the right lobe at 1.5 cm, simple. The gallbladder has been removed. No fluid in the gallbladder fossa. The right kidney is 13 cm in length with no evidence of obstruction, large stones or cortical deformities. Normal perfusion on Doppler. The spleen is measured at 15.6 cm, mildly enlarged. No ascites found. Impression: No acute abnormality in the right upper quadrant. Liver size slightly enlarged with fatty changes. CT shows slightly nonsmooth margins suggesting the possibility of cirrhosis, as well. No ascites recognized, currently. Location: U 19 at 1108 Reported and signed by: Torsten Smith M.D. CC: Beto Boland MD; Gael BARRAZA Technologist: CARLOS ALBERTO HU Trnscrd Date/Time/By: 05/16/2019 (1108) : By: [facility] PAGE 1 Signed Report FAX: Beto Urias [phone] [place]: St: ADM FAX: Gael Larsen [phone] Name: LUBNA LEACH [facility] : 1965 Age/S: 54/M [address] [facility] Unit #: [id number] Loc: DIANA [place], [place] Phys: Gael Garcia [address] Acct: [id number] Dis Date: Status: ADM IN PHONE #: [phone] Exam Date: 05/16/2019 1046 FAX #: [phone] Reason: Elevated LFT EXAMS: CPT CODE: [id number] US ABDOMEN LTD [address] <Continued> Orig Print D/T: S: 05/16/2019 (1112) PAGE 2 Signed [id number] 07:18:00 Test Item Value Reference Range Interpretation Comments AMMONIA (test code = AMM) 9.5 MCMOL/L 11.0-32.0 L No sample received in the lab. Please collect if deemednecessary.Thank you!Lab DRUGS OF ABUSE SCREEN [id number] 06:29:00 Test Item Value Reference Interpretation Comments Range URN COCAINE (test NEGATIVE NEGATIVE Cocaine cu t-off code = COCAURN) concentratio n: 300 ng/mL URN CANNABINOIDS POSITIVE NEGATIVE A UNCONFIRMED INITIAL (test code = SCREENING ONLY; SUGGEST CANNABURN) ADDITIONALCONFI RMATORY TESTING.Cannabi noids cut-off concent ration: 50 ng/mL URN AMPHETAMINE NEGATIVE NEGATIVE Amphetamine cut-off (test code = concentration: 1000 ng/mL AMPHETURN) URN BARBITURATE NEGATIVE NEGATIVE Barbiturate cut-off (test code = concentration: 200 ng/mL BARBITURN) URN BENZODIAZEPINE NEGATIVE NEGATIVE Benzodiaz epine cut-off (test code = concentration: 200 ng/mL BENZOURN) URN OPIATES (test NEGATIVE NEGATIVE Opiates cu t-off code = OPIATURN) concentrati on: 200 ng/mL URN PHENCYCLIDINE NEGATIVE NEGATIVE Phencyclid ine(PCP) cut-off (PCP) (test code = concentra tion: 25 ng/ml PHENCURN) URN METHADONE (test NEGATIVE NEGATIVE Methadon e cut-off code = METHAURN) concentrati on: 300 ng/mL CBC W/MANUAL [id number] 05:08:00 Test Item Value Reference Range Interpretation Comments WHITE BLOOD CELL (test code = 5.9 K/mm3 4.5-11.0 N WBC) RED BLOOD CELL (test code = 5.11 M/mm3 4.40-5.90 N RBC) HEMOGLOBIN (test code = HGB) 16.4 gm/dL 13.0-17.0 N HEMATOCRIT (test code = HCT) 45.6 % 36.0-48.0 N MEAN CELL VOLUME (test code = 89.2 UM3 80.0-94.0 N MCV) MEAN CELL HGB (test code = MCH) 32.1 UUG 25.5-32.5 N MEAN CELL HGB CONCETRATION 36.0 gm/dL 29.0-35.5 H (test code = MCHC) RED CELL DISTRIBUTION WIDTH 12.5 % 11.5-15.0 N (test code = RDW) RED CELL DISTRIBUTION WIDTH SD 41.1 fL 34.8-50.2 N (test code = RDW-SD) PLATELET COUNT (test code = 76 K/mm3 150-400 L PLT) MEAN PLATELET VOLUME (test code 12.4 fl 7.4-10.4 H = MPV) NEUTROPHIL % (test code = NT%) 30.0 % 49.0-76.0 L IMMATURE GRANULOCYTE % (test 0.8 % 0.0-0.4 H code = IG%) LYMPHOCYTE % (test code = LY%) 55.5 % 23.0-38.0 H MONOCYTE % (test code = MO%) 12.1 % 1.0-10.0 H EOSINOPHIL % (test code = EO%) 0.8 % 1.0-5.0 L BASOPHIL % (test code = BA%) 0.8 % 0.0-1.0 N NEUTROPHIL # (test code = NT#) 1.8 K/mm3 2.4-6.3 L IMMATURE GRANULOCYTE # (test 0.05 x10 3/uL 0.00-0.07 N code = IG#) LYMPHOCYTE # (test code = LY#) 3.3 K/mm3 1.2-4.0 N MONOCYTE # (test code = MO#) 0.7 K/mm3 0.0-0.6 H EOSINOPHIL # (test code = EO#) 0.1 K/MM3 0.0-0.7 N BASOPHIL # (test code = BA#) 0.1 K/mm3 0.0-0.2 N TOTAL CELLS COUNTED (test code 100 #CELLS = TCC) SEGMENTED NEUTROPHILS (test 41 % 50.0-70.0 L code = SEG) BAND NEUTROPHIL (test code = 7 % 1.0-4.0 H BAND) LYMPHOCYTE (test code = LYMPH) 45 % 20-40 H ATYPICAL LYMPH (test code = 3 1.0-4.0 N ALYMPH) MONOCYTE (test code = MON) 3 % 0-10 N METAMYELOCYTE (test code = 1 % 0.0-1.0 N META) MACROCYTOSIS (test code = MACR) 1+ SMUDGE CELLS (test code = 3+ SMUDG) PLATELET ESTIMATE (test code = DECREASED PLTEST) PLATELET MORPHOLOGY (test code NORMAL = PLTMORPH) PROTHROMBIN [id number] 01:10:00 Test Item Value Reference Range Interpretation Comments PROTHROMBIN TIME 12.6 SECONDS 9.9-12.8 N PATIENT (test code = PTP) INTERNATIONAL NORMAL 1.1 0.89-1.14 N THE INR IS TO BE USED RATIO (test code = ONLY FOR MONITORING INR) ORAL ANTICOAGULANTTH ERAPY. THE FOLLOWING A RE SUGGESTED RANGE S FROM [facility]ST [facility]YSICI[facility]:ANGELA CATION INR VALUEPROPHYLAXI S OF VENOUS THROMBOS IS (ORTHOPEDIC JACQUES TRAVON) 2.0 - 3.0PROP HYLAXIS OF VENOUS THROM BOSIS (OTHER THAN HIG H-RISK SURGERY) 2.0 - 3.0TRE ATMENT OF DEEP VEIN THROMBOSIS OR PULMONARY EMBOL ISM 2.0 - 3.0PREV ENTION OF SYSTEMIC EMB OLISM TISSUE HEART VA LVES 2.0 - 3.0 AC KESHAV MYOCARDIAL INFA RCTION (TO PREVENT SYSTEMIC EMBOLI SM) 2.0 - 3.0 ACUTE MYOCARDIA L INFARCTION (TO PREVENT RECURRE NT INFARCT) 2.5 - 3.0 VALV ULAR HEART DISEASE 2.0 - 3.0 ATRIAL FIBRILATION 2.0 - 3.0BILEAFLET MECHANICAL VALV E IN AORTIC POSITION 2.0 - 3.0MECHAN ICAL PROSTHETIC VALV ES (HIGH RISK) 2.5 - 3.5PRESEN CE OF LUPUS ANTICOAGU LANT OR ANTIPHOSPHOLIP ID ANTIBODIES 2.5 - 3 .5 Specimen comments: Clean CatchTHROMBOPLASTIN TIME [id number] 01:10:00 Test Item Value Reference Range Interpretation Comments THROMBOPLASTIN TIME 33.50 SECONDS 25.86-36.07 N [facility] PARTIAL (test code = Therape utic Range - PTT) APTT of 55.8-85 .4 secondscorrelat es with plasma heparin concentration o f 0.2-0.4 u/mL Ne w range effective - Specimen comments: Clean CatchBASIC METABOLIC [id number] 01:09:00 Test Item Value Reference Range Interpretation Comments SODIUM (test code = NA) 131 mmol/l 134.0-147.0 L POTASSIUM (test code = K) 4.2 mmol/L 3.6-5.2 N CHLORIDE (test code = CL) 98 mmol/l 98.0-107.0 N CARBON DIOXIDE (test code = CO2) 25.2 mmol/l 21.0-33.0 N ANION GAP (test code = GAP) 12.0 0-20 N GLUCOSE (test code = GLU) 137 mg/dl 70.0-110.0 H BLOOD UREA NITROGEN (test code = 15 mg/dl 7.0-18.0 N BUN) CREATININE (test code = CREAT) 0.89 mg/dL 0.60-1.30 N GFR NON BLACK (test code = 94 mL/min 90-95 N GFRNONBLACK) GFR BLACK (test code = GFRBLACK) 114 mL/min 109-115 N CALCIUM (test code = CA) 8.0 mg/dl 8.0-10.5 N Specimen comments: Clean CatchHEPATIC FUNCTION PANEL [id number] 01:09:00 Test Item Value Reference Range Interpretation Comments TOTAL PROTEIN (test code = PROT) 6.2 gm/dL 6.4-8.2 L ALBUMIN (test code = ALB) 2.7 gm/dl 3.2-4.7 L BILIRUBIN TOTAL (test code = 1.3 mg/dl 0.0-1.0 H BILT) BILIRUBIN DIRECT (test code = 0.4 mg/dl 0.0-0.3 H BILD) SGOT/AST (test code = AST) 200 Units/L 15.0-37.0 H SGPT/ALT (test code = ALT) 160 Units/L 12.0-78.0 H ALKALINE PHOSPHATASE TOTAL (test 141 Units/L 50.0-136.0 H code = ALKP) Specimen comments: Clean [id number] 01:09:00 Test Item Value Reference Range Interpretation Comments LIPASE (test code = 560 Units/L 65.0-230.0 H 2+ LIPEM IC SAMPLE. LIP) Specimen comments: Clean CatchB-TYPE NATRIURETIC [id number] 01:09:00 Test Item Value Reference Range Interpretation Comments B-TYPE NATRIURETIC PEPTIDE (test 33 PG/ML 5-100 N code = BNP) Specimen comments: Clean SportsBlogsBASIC METABOLIC [id number] 00:59:00 Test Item Value Reference Range Interpretation Comments SODIUM (test code = NA) 131 mmol/l 134.0-147.0 L POTASSIUM (test code = K) 4.2 mmol/L 3.6-5.2 N CHLORIDE (test code = CL) 98 mmol/l 98.0-107.0 N CARBON DIOXIDE (test code = CO2) 25.2 mmol/l 21.0-33.0 N ANION GAP (test code = GAP) 12.0 0-20 N GLUCOSE (test code = GLU) 137 mg/dl 70.0-110.0 H BLOOD UREA NITROGEN (test code = 15 mg/dl 7.0-18.0 N BUN) CREATININE (test code = CREAT) 0.89 mg/dL 0.60-1.30 N GFR NON BLACK (test code = 94 mL/min 90-95 N GFRNONBLACK) GFR BLACK (test code = GFRBLACK) 114 mL/min 109-115 N CALCIUM (test code = CA) 8.0 mg/dl 8.0-10.5 N Specimen comments: Silicon HiveHEPATIC FUNCTION PANEL [id number] 00:59:00 Test Item Value Reference Range Interpretation Comments TOTAL PROTEIN (test code = PROT) 6.2 gm/dL 6.4-8.2 L ALBUMIN (test code = ALB) 2.7 gm/dl 3.2-4.7 L BILIRUBIN TOTAL (test code = 1.3 mg/dl 0.0-1.0 H BILT) BILIRUBIN DIRECT (test code = 0.4 mg/dl 0.0-0.3 H BILD) SGOT/AST (test code = AST) 200 Units/L 15.0-37.0 H SGPT/ALT (test code = ALT) 160 Units/L 12.0-78.0 H ALKALINE PHOSPHATASE TOTAL (test 141 Units/L 50.0-136.0 H code = ALKP) Specimen comments: Clean [id number] 00:59:00 Test Item Value Reference Range Interpretation Comments LIPASE (test code = 560 Units/L 65.0-230.0 H 2+ LIPEM IC SAMPLE. LIP) Specimen comments: Clean CatchB-TYPE NATRIURETIC [id number] 00:59:00 Test Item Value Reference Range Interpretation Comments B-TYPE NATRIURETIC PEPTIDE (test code PG/ML 5-100 = BNP) Specimen comments: Clean CatchBASIC METABOLIC [id number] 00:54:00 Test Item Value Reference Range Interpretation Comments SODIUM (test code = NA) 131 mmol/l 134.0-147.0 L POTASSIUM (test code = K) 4.2 mmol/L 3.6-5.2 N CHLORIDE (test code = CL) 98 mmol/l 98.0-107.0 N CARBON DIOXIDE (test code = CO2) 25.2 mmol/l 21.0-33.0 N ANION GAP (test code = GAP) 12.0 0-20 N GLUCOSE (test code = GLU) mg/dl 70.0-110.0 BLOOD UREA NITROGEN (test code = mg/dl 7.0-18.0 BUN) CREATININE (test code = CREAT) mg/dL 0.60-1.30 GFR NON BLACK (test code = mL/min 90-95 GFRNONBLACK) GFR BLACK (test code = GFRBLACK) mL/min 109-115 CALCIUM (test code = CA) mg/dl 8.0-10.5 Specimen comments: Clean SportsBlogsHEPATIC FUNCTION PANEL [id number] 00:54:00 Test Item Value Reference Range Interpretation Comments TOTAL PROTEIN (test code = PROT) gm/dL 6.4-8.2 ALBUMIN (test code = ALB) gm/dl 3.2-4.7 BILIRUBIN TOTAL (test code = BILT) mg/dl 0.0-1.0 BILIRUBIN DIRECT (test code = BILD) mg/dl 0.0-0.3 SGOT/AST (test code = AST) Units/L 15.0-37.0 SGPT/ALT (test code = ALT) Units/L 12.0-78.0 ALKALINE PHOSPHATASE TOTAL (test Units/L 50.0-136.0 code = ALKP) Specimen comments: Clean [id number] 00:54:00 Test Item Value Reference Range Interpretation Comments LIPASE (test code = LIP) Units/L 65.0-230.0 Specimen comments: Clean CatchB-TYPE NATRIURETIC [id number] 00:54:00 Test Item Value Reference Range Interpretation Comments B-TYPE NATRIURETIC PEPTIDE (test code PG/ML 5-100 = BNP) Specimen comments: Clean CatchURINALYSIS [id number] 00:52:00 Test Item Value Reference Range Interpretation Comments UA COLOR (test code = YELLOW COLU) UA APPEARANCE (test code CLEAR = APPU) UA GLUCOSE DIPSTICK (test NORMAL mg/dl NORMAL code = DGLUU) UA BILIRUBIN DIPSTICK NEGATIVE mg/dL NEGATIVE (test code = BILU) UA KETONE DIPSTICK (test NEGATIVE mg/dl NEGATIVE code = KETU) UA SPECIFIC GRAVITY (test 1.005 1.000-1.030 code = SGU) UA BLOOD DIPSTICK (test 10 Anthony/micL Anthony/micL NEGATIVE A code = PAUL) UA PH DIPSTICK (test code 7.0 5.0-9.0 = LAURA) UA PROTEIN DIPSTICK (test NEGATIVE mg/dl NEGATIVE code = PROU) UA UROBILINIOGEN DIPSTICK 8.0 mg/dl mg/dl NORMAL A (test code = URO) UA NITRITE DIPSTICK (test NEGATIVE NEGATIVE code = KARIE) UA LEUKOCYTE ESTERASE NEGATIVE Catrachita/micL NEGATIVE DIPSTICK (test code = LEUU) UA WBC (test code = WBCU) 0-3 WBC/HPF NONE UA RBC (test code = RBCU) 0-2 RBC/HPF 0-3 UA EPITHELIAL CELLS (test 2-5 EPI/HPF 0-3 A code = EPIU) UA BACTERIA (test code = FEW NONE BACU) Specimen comments: Clean CatchCBC W/MANUAL [id number] 00:46:00 Test Item Value Reference Range Interpretation Comments WHITE BLOOD CELL (test code = 5.9 K/mm3 4.5-11.0 N WBC) RED BLOOD CELL (test code = 5.11 M/mm3 4.40-5.90 N RBC) HEMOGLOBIN (test code = HGB) 16.4 gm/dL 13.0-17.0 N HEMATOCRIT (test code = HCT) 45.6 % 36.0-48.0 N MEAN CELL VOLUME (test code = 89.2 UM3 80.0-94.0 N MCV) MEAN CELL HGB (test code = MCH) 32.1 UUG 25.5-32.5 N MEAN CELL HGB CONCETRATION 36.0 gm/dL 29.0-35.5 H (test code = MCHC) RED CELL DISTRIBUTION WIDTH 12.5 % 11.5-15.0 N (test code = RDW) RED CELL DISTRIBUTION WIDTH SD 41.1 fL 34.8-50.2 N (test code = RDW-SD) PLATELET COUNT (test code = 76 K/mm3 150-400 L PLT) MEAN PLATELET VOLUME (test code 12.4 fl 7.4-10.4 H = MPV) NEUTROPHIL % (test code = NT%) 30.0 % 49.0-76.0 L IMMATURE GRANULOCYTE % (test 0.8 % 0.0-0.4 H code = IG%) LYMPHOCYTE % (test code = LY%) 55.5 % 23.0-38.0 H MONOCYTE % (test code = MO%) 12.1 % 1.0-10.0 H EOSINOPHIL % (test code = EO%) 0.8 % 1.0-5.0 L BASOPHIL % (test code = BA%) 0.8 % 0.0-1.0 N NEUTROPHIL # (test code = NT#) 1.8 K/mm3 2.4-6.3 L IMMATURE GRANULOCYTE # (test 0.05 x10 3/uL 0.00-0.07 N code = IG#) LYMPHOCYTE # (test code = LY#) 3.3 K/mm3 1.2-4.0 N MONOCYTE # (test code = MO#) 0.7 K/mm3 0.0-0.6 H EOSINOPHIL # (test code = EO#) 0.1 K/MM3 0.0-0.7 N BASOPHIL # (test code = BA#) 0.1 K/mm3 0.0-0.2 N SEGMENTED NEUTROPHILS (test % 50.0-70.0 code = SEG) LYMPHOCYTE (test code = LYMPH) % 20-40 CBC W/MANUAL [id number] 00:46:00 Test Item Value Reference Range Interpretation Comments WHITE BLOOD CELL (test code = 5.9 K/mm3 4.5-11.0 N WBC) RED BLOOD CELL (test code = 5.11 M/mm3 4.40-5.90 N RBC) HEMOGLOBIN (test code = HGB) 16.4 gm/dL 13.0-17.0 N HEMATOCRIT (test code = HCT) 45.6 % 36.0-48.0 N MEAN CELL VOLUME (test code = 89.2 UM3 80.0-94.0 N MCV) MEAN CELL HGB (test code = MCH) 32.1 UUG 25.5-32.5 N MEAN CELL HGB CONCETRATION 36.0 gm/dL 29.0-35.5 H (test code = MCHC) RED CELL DISTRIBUTION WIDTH 12.5 % 11.5-15.0 N (test code = RDW) RED CELL DISTRIBUTION WIDTH SD 41.1 fL 34.8-50.2 N (test code = RDW-SD) PLATELET COUNT (test code = 76 K/mm3 150-400 L PLT) MEAN PLATELET VOLUME (test code 12.4 fl 7.4-10.4 H = MPV) NEUTROPHIL % (test code = NT%) 30.0 % 49.0-76.0 L IMMATURE GRANULOCYTE % (test 0.8 % 0.0-0.4 H code = IG%) LYMPHOCYTE % (test code = LY%) 55.5 % 23.0-38.0 H MONOCYTE % (test code = MO%) 12.1 % 1.0-10.0 H EOSINOPHIL % (test code = EO%) 0.8 % 1.0-5.0 L BASOPHIL % (test code = BA%) 0.8 % 0.0-1.0 N NEUTROPHIL # (test code = NT#) 1.8 K/mm3 2.4-6.3 L IMMATURE GRANULOCYTE # (test 0.05 x10 3/uL 0.00-0.07 N code = IG#) LYMPHOCYTE # (test code = LY#) 3.3 K/mm3 1.2-4.0 N MONOCYTE # (test code = MO#) 0.7 K/mm3 0.0-0.6 H EOSINOPHIL # (test code = EO#) 0.1 K/MM3 0.0-0.7 N BASOPHIL # (test code = BA#) 0.1 K/mm3 0.0-0.2 N SEGMENTED NEUTROPHILS (test % 50.0-70.0 code = SEG) LYMPHOCYTE (test code = LYMPH) % 20-40 URINALYSIS [id number] 00:45:00 Test Item Value Reference Range Interpretation Comments UA COLOR (test code = YELLOW COLU) UA APPEARANCE (test code CLEAR = APPU) UA GLUCOSE DIPSTICK (test NORMAL mg/dl NORMAL code = DGLUU) UA BILIRUBIN DIPSTICK NEGATIVE mg/dL NEGATIVE (test code = BILU) UA KETONE DIPSTICK (test NEGATIVE mg/dl NEGATIVE code = KETU) UA SPECIFIC GRAVITY (test 1.005 1.000-1.030 code = SGU) UA BLOOD DIPSTICK (test 10 Anthony/micL Anthony/micL NEGATIVE A code = PAUL) UA PH DIPSTICK (test code 7.0 5.0-9.0 = LAURA) UA PROTEIN DIPSTICK (test NEGATIVE mg/dl NEGATIVE code = PROU) UA UROBILINIOGEN DIPSTICK 8.0 mg/dl mg/dl NORMAL A (test code = URO) UA NITRITE DIPSTICK (test NEGATIVE NEGATIVE code = KARIE) UA LEUKOCYTE ESTERASE NEGATIVE Catrachita/micL NEGATIVE DIPSTICK (test code = LEUU) UA WBC (test code = WBCU) WBC/HPF NONE UA RBC (test code = RBCU) RBC/HPF 0-3 UA EPITHELIAL CELLS (test EPI/HPF 0-3 code = EPIU) UA BACTERIA (test code = NONE BACU) Specimen comments: Clean Catch- CT ABD PELVIS W/O [id number] 23:43:00 FAX: Nathan Prince MD [place]: St: REG Name: LUBNA LEACH [facility] : 1965 Age/S: 54/M [address] [facility] Unit: [id number] Loc: [address] Phys: [place] [address] Acct: [id number] Dis Date: Status: REG ER PHONE #: [phone] Exam Date: 05/15/2019 2317 FAX #: [phone] Reason: ruq pain EXAMS: CPT CODE: [id number] CT ABD PELVIS W/O CONT 98886 CLINICAL HISTORY: Right upper quadrant abdominal pain,shortness of breath. LOCATION: E5 FINDINGS: Multislice axial images are obtained through the abdomen and pelvis without oral or intravenous contrast. Coronal reconstructed images are obtained and are used in interpretation. Comparison is madeto previous study dated October 22, 2014. There is mild diffuse fatty infiltration of the liver. The liver is again enlarged measuring 17.1 cm craniocaudal at the midclavicular line. 1.5 cm cyst within the left hepatic lobe measures slightly larger compared to the previous study (previously measured 1.0 cm). The gallbladder has been surgically removed. No abnormalities are noted of the pancreas. The spleen is enlarged measuring 13.9 cm in length which is increased from the previous study (previously measured 11.6 cm). No abnormalities are noted of the adrenal glands or kidneys. The intrapelvic viscera are within normal limits. There is a moderate volume within the bladder. There is no significant adenopathy. There is a small amount of free fluid within the pelvis. There is also small amount of free fluid adjacent to the liver. No signs of inflammation are noted. The appendix is not identified. However,no inflammatory changes are noted in the expected location of the appendix. There is moderate calcification of the abdominal aorta. 1 cm sclerotic lesion within the left inferior pubic ramus remains stable. No acute skeletal or soft tissue abnormalities. Several 3 mm noncalcified nodules at the left lower lung remain stable from the prior study suggesting benign nodules. IMPRESSION: 1. There is a small amount of free fluid adjacent to the liver and small amount of free fluid within the pelvis. 2. Hepatomegaly is stable. There is mild diffuse fatty infiltration of the liver. 3. Splenomegaly measuring 13.9 cm in length is increased from the previous study. PAGE 1 Signed Report (CONTINUED) FAX: Nathan Prince MD [place]: St: REG Name: LUBNA LEACH [facility] : 1965 Age/S: 54/M [address] [facility] Unit: [id number] Loc: [address] Phys: [place] [address] Acct: [id number] Dis Date: Status: REG ER PHONE #: [phone] Exam Date: 05/15/2019 2316 FAX #: [phone] Reason: ruq pain EXAMS: CPT CODE: [id number] CT ABD PELVIS W/O CONT 32345 <Continued> This exam was performed according to ourdepartmental dose-optimization program, which includes automated exposure control, adjustment of the mA and/or kV according to patient size and/or use of iterative reconstruction technique at 3952 Reported and signed by: Lennox Purvis M.D. CC: Nathan Prince MD Technologist: STANTON LIZ Trnscrd Dt/Tm: 05/15/2019 (6411) [email or web address] Orig Print D/T: S: 05/15/2019 (1426 PAGE 2 Signed Report- XR CHEST 2 [id number] 23:29:00 FAX: Nathan Prince MD [place]: St: REG Name: LUBNA LEACH [facility] : 1965 Age/S: 54/M [address] [place], [place] [address] Unit#: [id number] Loc: [address] Phys: [place] [address] Acct: [id number] Dis Date: Status: REG ER PHONE #: [phone] Exam Date: 05/15/2019 2320 FAX #: [phone] Reason: sob EXAMS: CPT CODE: [id number] XR CHEST 2 V 24197 EXAM: - XR CHEST 2 V HISTORY: Shortness of breath. COMPARISON: April 17, 2018. FINDINGS: PA and lateral view of the chest is provided. Heart size and vascularity are within normal limits. There is no focal consolidation. No effusion, pneumothorax, or acute osseous abnormality. IMPRESSION: No consolidation or pleural effusion. at 2329 Reported and signed by: Choco Wells M.D. CC: Nathan Prince MD Technologist: TOO JIMENEZ Trnscrd Date/Time/By: 05/15/2019 (1897) : By: [email or web address] PAGE 1 Signed Report FAX: Nathan Prince MD [place]: St: REG -- Name: LUBNA LEACH [facility] : 1965 Age/S: 54/M [address] [place] [address] [facility] Unit #: [id number] Loc: [address] Phys: [place] [address] Acct: [id number] Dis Date: Status: REG ER PHONE #: [phone] Exam Date: 05/15/2019 2320 FAX #: [phone] Reason: sob EXAMS: CPT CODE: [id number] XR CHEST 2 V 38495 <Continued> Orig Print D/T: S: 05/15/2019 (4729) PAGE 2 Signed FpmagnHZMQHBLUAJ1924-30-50 09:04:00Negative *NA*(05/15/19 4:04 AM) [facility] [id number] 14:48:000.96[facility]annIMMUNOLOGY 2019-05-14 14:48:00Negative *NA*(05/14/19 9:48 AM)[facility]ann[facility]MUNOLOGY 2019-05-14 14:48:00Negative *NA*(05/14/19 9:48 AM)[facility]ann[facility]MUNOLOGY 2019-05-14 14:48:00Negative *NA*(05/14/19 9:48 AM)[facility]annIMMUNOLOGY 2019-05-14 14:48:00Positive *ABN*(05/14/19 9:48 AM)[facility]annTUMOR MARKERS 2019-05-14 14:48:0048.3[facility]annCHE[facility] HXJVO0178-14-69 09:25:002.7[facility]annCHE[facility] GHWNL6483-89-86 09:25:002.0[facility]annCHE[facility] ALPJL0352-06-91 09:25:0092[facility]CHE[facility] ZMWHB7164-48-99 09:25:001.8[facility]CHE[facility] OEJKJ4951-33-53 09:25:0085[facility]CHE[facility] QQJLV0106-02-86 09:25:22470 [facility]CHE[facility] ZQECK8708-68-60 09:25:000.93[facility]annCHEM PANEL 2019-05-14 09:25:0015[facility]annCHE[facility] WXCEE4756-26-23 09:25:0086[facility]CHE[facility] TYKNG1595-84-61 09:25:42450Kavfbhta HermannCHEM AUFHE8116-62-22 09:25:002.8[facility]annCHE[facility] BBXJM4642-14-71 09:25:0019[facility]CHE[facility] YMNBX6472-15-18 09:25:006.5[facility]CHE[facility] FUWFL4462-12-65 09:25:008.1 [facility] EDOZH2810-60-74 09:25:004.2[facility]annCHEM PANEL 2019-05-14 09:25:90551Hoginxmc HermannCHEM PXFVB2094-09-89 09:25:72532Puynjqbm [facility]annCHE[facility] JQTHX0390-25-92 09:25:003.7[facility]annCHE[facility] FCEFW9414-67-94 09:25:00 Test Item Value Reference Range Interpretation Comments A/G Ratio (test code = A/G Ratio) 0.8 1 0.7-1.6 [facility] [id number] 09:25:00 Test Item Value Reference Range Interpretation Comments B/C Ratio (test code = B/C Ratio) 16 1 6-25 [facility] UXHGL9915-17-16 09:25:0014.2[facility]annHEMATOLOGY 2019-05-14 09:25:0010.4[facility] UbzxzvfRANOIHECET3214-12-65 09:25:005.83[facility] ZltijlnXPAPQKPMYC8334-71-31 09:25:0035.1[facility] GxjsaqkXMTOPXILHG0884-26-44 09:25:0090.5[facility] PfnxnkwWNKYMSFXLY5643-31-37 09:25:0018.5[facility] UYWOWPILYM1208-18-69 09:25:0052.7[facility] QqxbiaiVOXRJIYTLR9651-50-17 09:25:00 5.1[facility] SskymmyXLSTQSCBYF3847-73-05 09:25:0065[facility]annHEMATOLOGY 2019-05-14 09:25:0013.2[facility] ZzshygtFJGDUBYBCE1159-23-49 09:25:00 Test Item Value Reference Range Interpretation Comments MCH (test code = MCH) 31.8 pg 27.0-31.0 [facility] BsfnorkIUYTYAYQZY5123-67-64 09:25:0012.5[facility]annHEMATOLOGY 2019-05-14 09:25:000.4[facility] VcctpcmVBHCKCQQNR3748-29-80 09:25:000.6[facility] LxpqqtuOUKVAUOJOY8523-76-57 09:25:000.6[facility] KtgyrikQSFAJQMLUL2462-40-91 09:25:004.0[facility] JwylahcPHOJNGKRXX4927-42-65 09:25:008.3[facility] FJSSWLNUQO8720-46-21 09:25:0078.6[facility] AND BBYEF8576-37-79 02:45:003[facility] JHQNV5233-30-66 02:45:002[facility] URINE AND XNMEV9062-57-78 02:45:00Negative (05/13/19 9:45 PM)[facility] NDUVH7967-70-83 02:45:00Not Indicated *NA*(05/13/19 9:45 PM)[facility] URINE AND RRTQV8852-92-09 02:45:00Negative *NA*(05/13/19 9:45 PM)[facility] URINE AND TNTLQ8951-92-94 02:45:00Negative (05/13/19 9:45 PM)[facility] XNQBB8790-91-73 02:45:00Negative (05/13/19 9:45 PM)[facility] JHZQA4199-54-17 02:45:00 Test Item Value Reference Range Interpretation Comments UA pH (test code = UA pH) 5.0 1 5.0-8.0 [facility] YFDSJ6351-47-96 02:45:004.0[facility] EISUY9748-27-75 02:45:00Clear (05/13/19 9:45 PM)[facility] STOOL 2019-05-14 02:45:00Amber *ABN*(05/13/19 9:45 PM)[facility] STOOL 2019-05-14 02:45:00 Test Item Value Reference Range Interpretation Comments UA Spec Grav (test code = UA Spec 1.016 1 Grav) [facility]CHE[facility] JLQGW6131-49-13 02:42:001.7[facility]annDRUG SCREEN 2019-05-13 10:10:00Negative *NA*(05/13/19 5:10 AM)[facility]annDRUG SCREEN 2019-05-13 10:10:00Negative *NA*(05/13/19 5:10 AM)[facility]annDR[facility] SCREEN 2019-05-13 10:10:00Positive *ABN*(05/13/19 5:10 AM)[facility]annDR[facility] SCREEN 2019-05-13 10:10:00See Note (05/13/19 5:10 AM)[facility]annDR[facility] SCREEN 2019-05-13 10:10:00Negative *NA*(05/13/19 5:10 AM)[facility]annDR[facility] SCREEN 2019-05-13 10:10:00Positive *ABN*(05/13/19 5:10 AM)[facility]annDR[facility] SCREEN 2019-05-13 10:10:00Negative *NA*(05/13/19 5:10 AM)[facility]annDR[facility] SCREEN 2019-05-13 10:10:00Positive *ABN*(05/13/19 5:10 AM)[facility] STOOL 2019-05-13 10:10:00Negative (05/13/19 5:10 AM)[facility] STOOL 2019-05-13 10:10:00Negative (05/13/19 5:10 AM)[facility] STOOL 2019-05-13 10:10:001[facility] SXPTR7489-36-90 10:10:002[facility] AND WJKBW7462-93-84 10:10:00Negative *NA*(05/13/19 5:10 AM)[facility] TJUSB6913-90-59 10:10:00Negative (05/13/19 5:10 AM)[facility] RQDWX2007-34-28 10:10:004.0[facility] STOOL 2019-05-13 10:10:00 Test Item Value Reference Range Interpretation Comments UA Spec Grav (test code = UA Spec 1.048 1 Grav) [facility] HRQDP9828-15-90 10:10:00 Test Item Value Reference Range Interpretation Comments UA pH (test code = UA pH) 5.0 1 5.0-8.0 [facility] CMASN4477-71-28 10:10:00Amber *ABN*(05/13/19 5:10 AM) [facility] NIWGX6520-52-79 10:10:00Clear (05/13/19 5:10 AM)[facility]annCHEM BKWCW8597-21-74 03:59:0096[facility]annCHEM CLHII3263-33-26 03:59:000.90[facility]annCHEM AFCKV4068-81-42 03:59:11781Bhidjdjb HermannCHEM LQCRN2152-72-47 03:59:0013[facility]annCHE[facility] XPBSQ3969-80-78 03:59:008.8 [facility]annCHE[facility] VRBYQ9201-69-88 03:59:52451Mrokewls HermannCHEM PANEL 2019-05-13 03:59:004.1[facility]annCHEM JPUFB7738-60-62 03:59:0099[facility]annCHE[facility] EMFCQ8838-59-60 03:59:0021[facility]annCHE[facility] JNHTC6106-49-87 03:59:0014.1[facility]annCARDIAC TPEWEXF5473-73-98 22:33:00<0.02[facility]annCHEM CSTCP2709-56-97 22:33:65337Nqvbzaqv HermannCHEM RLDMQ9375-25-98 22:33:23792Nnxzlpde HermannCHEM GGTTF4514-03-54 22:33:0080[facility]annCHE[facility] NSAFW7384-37-67 22:33:001.04[facility]annCHE[facility] DIWUW0573-53-13 22:33:004.2 [facility]CHE[facility] VQLRN6126-97-28 22:33:05459Eluwwozv HermannCHEM PANEL 2019-05-12 22:33:008.8[facility]annCHEM MVIVL6003-42-43 22:33:0021[facility]annCHEM ACEPE4847-37-71 22:33:0099[facility]annCHEM XTNWV5914-73-85 22:33:58350Jpjzvzmi HermannCHEM LVJDO1202-38-20 22:33:003.3[facility]annCHEM PGSEB3995-20-17 22:33:39174Rubcbsis HermannCHEM RCQNK3543-74-04 22:33:0013 [facility]annCHE[facility] DARRE5326-30-80 22:33:001.3[facility]annCHEM PANEL 2019-05-12 22:33:007.7[facility]annCHEM DQIUO1150-51-50 22:33:0094[facility]annCHEM HASAC1283-31-75 22:33:0015.2[facility]annCHEM QYFYH0466-38-70 22:33:00 Test Item Value Reference Range Interpretation Comments B/C Ratio (test code = B/C Ratio) 12 1 6-25 [facility] HSTDK7633-48-55 22:33:004.4[facility]annCHEM PANEL 2019-05-12 22:33:00 Test Item Value Reference Range Interpretation Comments A/G Ratio (test code = A/G Ratio) 0.8 1 0.7-1.6 [facility] HospitalHjzkyakRZJYFOJJWS5915-82-49 22:33:00 Test Item Value Reference Range Interpretation Comments INR (test code = INR) 1.03 1 0.85-1.17 [facility] HospitalYviisjwHWTRXHKYTI6470-01-71 22:33:00 Test Item Value Reference Range Interpretation Comments PT (test code = PT) 13.3 s 12.0-14.7 [facility] HospitalIyjvsmtVDRNSNGNZD0924-13-44 22:33:00 Test Item Value Reference Range Interpretation Comments PTT (test code = PTT) 39.2 s 22.9-35.8 [facility] HospitalKucjngjCDIXRCFPRC5298-30-76 22:33:0013.4[facility]annHEMATOLOGY 2019-05-12 22:33:0098[facility] GzhveuwVQBKJOROQE2145-69-35 22:33:009.3[facility] JupjhovWCWXSAYOGG7768-87-68 22:33:0091.0[facility] GeruvuiDNIGQZJWIZ2194-97-07 22:33:00 Test Item Value Reference Range Interpretation Comments MCH (test code = MCH) 32.1 pg 27.0-31.0 [facility] HospitalWqswsvgETWRMINGJM3099-04-98 22:33:0035.3[facility] 2019-[facility]-12 22:33:009.0[facility] LlfipgiWTNDKTIHGS7778-55-97 22:33:006.03[facility] TonposvJGCSORIIOJ9873-27-96 22:33:0019.4[facility] IhimljzXXYZZLBQVQ0243-40-54 22:33:0054.8[facility] TugpikyDEZKQBZNFZ1729-75-59 22:33:006.8[facility] ABESPEBHWO4502-64-32 22:33:008.0[facility] LxgmvkcPIJWPJTMAI8203-52-38 22:33:000.4 [facility] UchewnoBXBCQEUWPS3193-79-71 22:33:003.4[facility]annHE[facility]OLOGY 2019-05-12 22:33:000.6[facility] IseyibqJUALXOOXMO1370-56-55 22:33:000.3[facility] QoxfeaeKCBDWIHYVP1893-82-34 22:33:0089.4[facility] LpamciqUQQZDMVTMF1835-25-77 22:33:00<2 (05/12/19 5:33 PM)[facility] SvtatumIKNKIHMDCG6729-65-39 22:33:00 <0.003[facility] MtkzqwsEVEERRZDEU0926-85-25 22:33:00<3[facility] OCSXWQWJEF7249-48-44 22:33:00<1.7[facility] [place]
[2020-06-05] MEDS ORDERED: WATER FOR INJ,STERILE 10 ML ONE (02:47)
[2020-06-05] MEDS ORDERED: CEFAZOLIN SODIUM 1 GM/VIAL ONE (02:47)
--- NOTE | 2020-06-05 03:53 | ER ---
Nurse's Notes [facility] Name: Huber Augustine Age: 55 yrs Sex: Male : 1965 Arrival Date: 06/05/2020 Time: 02:22 Bed 6 Private MD: Diagnosis: Right Leg Laceration Presentation: 06/05 02:23 Chief complaint: EMS states: they were toned out for report of pt with laceration to bb right [place]. Coronavirus screen: At this time, the client does not indicate any symptoms associated with coronavirus-19. Ebola Screen: No symptoms or risks identified at this time. Complicating Factors: There are no complicating factors for this patient. Initial Sepsis Screen: Does the patient meet any 2 criteria? No. Patient's initial sepsis screen is negative. Does the patient have a suspected source of infection? No. Patient's initial sepsis screen is negative. Risk Assessment: Do you want to hurt yourself or someone else? Patient reports no desire to harm self or others. Onset of symptoms was June 05, 2020. 02:23 Method Of Arrival: EMS: [facility] 02:23 Acuity: ROSALEE 3 bb Triage Assessment: 02:26 General: Appears unkempt, Behavior is anxious. Pain: Complains of pain in right leg bb Pain currently is 6 out of 10 on a pain scale. Injury Description: Laceration sustained to right rosario. Historical: - Allergies: 02:26 No Known Allergies; bb - Home Meds: 02:26 gabapentin Oral [Active]; lisinopril Oral [Active]; Lyrica Oral [Active]; bb - PMHx: 02:26 neuropathy; liver cancer; Hypertension; Diabetes - NIDDM; bb - PSHx: 02:26 ankle surgery; Cholecystectomy; bb - Immunization history:: Adult Immunizations up to date, Last tetanus immunization: up to date. - Social history:: Smoking status: Patient reports the use of cigarette tobacco products, smokes one-half pack cigarettes per day, Patient uses alcohol. Screenin:26 Abuse screen: Denies threats or abuse. Denies injuries from another. Nutritional rr5 screening: No deficits noted. Tuberculosis screening: No symptoms or risk factors identified. Fall Risk None identified. Total Michael Fall Scale indicates No Risk (0-24 pts). Assessment: 02:26 General: Appears in no apparent distress. uncomfortable, Behavior is calm, cooperative, rr5 appropriate for age. Pain: Complains of pain in lateral aspect of right calf Pain currently is 6 out of 10 on a pain scale. Quality of pain is described as aching, Pain began suddenly, Is intermittent. Neuro: Level of Consciousness is awake, alert, obeys commands, Oriented to person, place, time, situation. Cardiovascular: Capillary refill < 3 seconds Patient's skin is warm and dry. Respiratory: Airway is patent Respiratory effort is even, unlabored, Respiratory pattern is regular, symmetrical. GI: No signs and/or symptoms were reported involving the gastrointestinal system. : No signs and/or symptoms were reported regarding the genitourinary system. EENT: No signs and/or symptoms were reported regarding the EENT system. Derm: Skin is intact, Skin temperature is warm Wound noted lateral aspect of right calf Wound is lacerated wound. Musculoskeletal: Capillary refill < 3 seconds. Injury Description: Laceration sustained to lateral aspect of right calf is clean, 0.5 to 2.5 cm long. 03:20 Reassessment: Patient appears in no apparent distress at this time. Patient is alert, rr5 oriented x 3, equal unlabored respirations, skin warm/dry/pink. awaiting for xray result. 03:54 Reassessment: Patient appears in no apparent distress at this time. Patient is alert, rr5 oriented x 3, equal unlabored respirations, skin warm/dry/pink. discharge instruction given and explained without complaints made. Patient states symptoms have improved. Vital Signs: 02:23 BP 157 / 98; Pulse 99; Resp 16 S; Temp 98.1(O); Pulse Ox 99% on R/A; Weight 90.72 kg bb (R); Height 6 ft. 0 in. (182.88 cm) (R); Pain 6/10; 03:48 BP 148 / 85; Pulse 85; Resp 17; Pulse Ox 100% ; rr5 02:23 Body Mass Index 27.12 (90.72 kg, 182.88 cm) ED Course: 02:22 Patient arrived in ED. bb 02:24 Yevgeniy Mckee MD is Attending Physician. 7 02:24 Osiel Gunderson RN is Primary Nurse. rr5 02:25 Triage completed. bb 02:26 Patient has correct armband on for positive identification. Bed in low position. Call rr5 light in reach. Pulse ox on. NIBP on. 02:26 Arm band placed on Patient placed in an exam room, on a stretcher, on pulse oximetry. bb 03:06 Tib Fib Right XRAY In Process Unspecified. EDMS 03:48 Assist provider with laceration repair on lateral aspect of right calf that was 2.5 cm. rr5 or less using yary. Set up tray. Performed by Yevgeniy Mckee MD Dressed with 4X4s, Kerlix, Neosporin, Patient tolerated well. Patient did not have IV access during this emergency room visit. Administered Medications: 02:43 Drug: Ancef 1 grams Route: IM; Site: left gluteus; rr5 03:40 Follow up: Response: No adverse reaction rr5 Outcome: 03:52 Discharge ordered by . 7 03:55 Discharged to home ambulatory. rr5 03:55 Condition: stable 03:55 Discharge instructions given to patient, Instructed on discharge instructions, follow up and referral plans. medication usage, Demonstrated understanding of instructions, follow-up care, medications, Prescriptions given X 1. 03:57 Patient left the ED. rr5 Signatures: Dispatcher [employer] Angie Knott RN RN Osiel Bourgeois RN RN rr5 Yevgeniy Mckee MD MD mh7
--- NOTE | 2020-06-05 03:53 | EDPHYS ---
Physician Documentation [facility] Name: Huber Augustine Age: 55 yrs Sex: Male : 1965 Arrival Date: 06/05/2020 Time: 02:22 Bed 6 Private MD: ED Physician Yevgeniy Mckee HPI: 06/05 02:34 This 55 yrs old Male presents to ER via EMS with complaints of Laceration To mh7 Leg. 02:34 The patient has a laceration related to: handling garbage, from a sharp metal object, mh7 occurred on a street or driveway, and there are no complicating factors. The injury was accidental. The laceration(s) is(are) located on the right leg. Onset: The symptoms/episode began/occurred today. 02:35 Associated signs and symptoms: Pertinent negatives: deformity, dizziness, heavy mh7 bleeding, loss of consciousness, numbness distal to injury, suspected foreign body. Historical: - Allergies: 02:26 No Known Allergies; bb - Home Meds: 02:26 gabapentin Oral [Active]; lisinopril Oral [Active]; Lyrica Oral [Active]; bb - PMHx: 02:26 neuropathy; liver cancer; Hypertension; Diabetes - NIDDM; bb - PSHx: 02:26 ankle surgery; Cholecystectomy; bb - Immunization history:: Adult Immunizations up to date, Last tetanus immunization: up to date. - Social history:: Smoking status: Patient reports the use of cigarette tobacco products, smokes one-half pack cigarettes per day, Patient uses alcohol. ROS: 02:35 Constitutional: Negative for fever, chills, and weight loss, Eyes: Negative for injury, mh7 pain, redness, and discharge, ENT: Negative for injury, pain, and discharge, Neck: Negative for injury, pain, and swelling, Cardiovascular: Negative for chest pain, palpitations, and edema, Respiratory: Negative for shortness of breath, cough, wheezing, and pleuritic chest pain, Abdomen/GI: Negative for abdominal pain, nausea, vomiting, diarrhea, and constipation, Back: Negative for injury and pain, : Negative for injury, bleeding, discharge, and swelling, Neuro: Negative for headache, weakness, numbness, tingling, and seizure, Psych: Negative for depression, anxiety, suicide ideation, homicidal ideation, and hallucinations, Allergy/Immunology: Negative for hives, rash, and allergies, Endocrine: Negative for neck swelling, polydipsia, polyuria, polyphagia, and marked weight changes, Hematologic/Lymphatic: Negative for swollen nodes, abnormal bleeding, and unusual bruising. Exam: 02:35 Constitutional: This is a well developed, well nourished patient who is awake, alert, mh7 and in no acute distress. Head/Face: Normocephalic, atraumatic. Neck: Trachea midline, no thyromegaly or masses palpated, and no cervical lymphadenopathy. Supple, full range of motion without nuchal rigidity, or vertebral point tenderness. No Meningismus. Chest/axilla: Normal chest wall appearance and motion. Nontender with no deformity. No lesions are appreciated. Cardiovascular: Regular rate and rhythm with a normal S1 and S2. No gallops, murmurs, or rubs. Normal PMI, no JVD. No pulse deficits. Respiratory: Lungs have equal breath sounds bilaterally, clear to auscultation and percussion. No rales, rhonchi or wheezes noted. No increased work of breathing, no retractions or nasal flaring. Abdomen/GI: Soft, non-tender, with normal bowel sounds. No distension or tympany. No guarding or rebound. No evidence of tenderness throughout. Back: No spinal tenderness. No costovertebral tenderness. Full range of motion. Neuro: Awake and alert, GCS 15, oriented to person, place, time, and situation. Cranial nerves II-XII grossly intact. Motor strength 5/5 in all extremities. Sensory grossly intact. Cerebellar exam normal. Normal gait. Psych: Awake, alert, with orientation to person, place and time. Behavior, mood, and affect are within normal limits. 03:47 Musculoskeletal/extremity: Extremities: noted in the right leg: laceration, ROM: intact mh7 in all extremities, Circulation is intact in all extremities. Pulses: are normal with no appreciated deficits, Perfusion: the patient is normally perfused throughout, Perfusion: the extremity is normally perfused throughout, Calf tenderness, is absent, Edema, is not appreciated, Sensation intact. Compartment Syndrome exam of affected extremity: is normal. no numbness, no tingling, no sensation deficit, no palor, no weak pulses, Joints: All joints appear normal with full range of motion. Tendon exam: specific tendon testing normal through active and passive range of motion 03:47 Skin: injury, laceration(s), the wound is approximately 5.0 cm(s), with a depth of 0.5 cm(s), of the right leg. Vital Signs: 02:23 BP 157 / 98; Pulse 99; Resp 16 S; Temp 98.1(O); Pulse Ox 99% on R/A; Weight 90.72 kg bb (R); Height 6 ft. 0 in. (182.88 cm) (R); Pain 6/10; 03:48 BP 148 / 85; Pulse 85; Resp 17; Pulse Ox 100% ; rr5 02:23 Body Mass Index 27.12 (90.72 kg, 182.88 cm) bb Laceration: 03:47 Wound Repair of 5cm ( 2.0in ) subcutaneous laceration to right leg. Distal mh7 neuro/vascular/tendon intact. Wound prep: Extensive cleansing with hibiclenz by nurse, Wound irrigation with saline by nurse. Skin closed with 9 1-0 [place] using staple gun. Dressed with non-adherent dressing. Patient tolerated well. MDM: 02:33 Patient medically screened. mh7 03:47 Differential diagnosis: superficial laceration, tendon injury, vascular injury. Data [facility] reviewed: vital signs, nurses notes, EMS record, radiologic studies, plain films. Data interpreted: Pulse oximetry: on room air is 100 %. Interpretation: normal. Counseling: I had a detailed discussion with the patient and/or guardian regarding: the historical points, exam findings, and any diagnostic results supporting the discharge/admit diagnosis, the presence of at least one elevated blood pressure reading (>120/80) during this emergency department visit, radiology results, the need for outpatient follow up, to return to the emergency department if symptoms worsen or persist or if there are any questions or concerns that arise at home. Response to treatment: the patient's symptoms have markedly improved after treatment. 06:08 Special discussion: I discussed in detail with the patient the higher chance of wound mh7 infection based on his presenting history. 06/05 02:41 Order name: Tib Fib Right XRAY mh7 06/05 03:50 Order name: Dressing - Wound; Complete Time: 03:50 rr5 06/05 03:50 Order name: Gloves, Sterile; Complete Time: 03:50 rr5 06/05 03:50 Order name: Setup Suture Tray; Complete Time: 03:50 rr5 Administered Medications: 02:43 Drug: Ancef 1 grams Route: IM; Site: left gluteus; rr5 03:40 Follow up: Response: No adverse reaction rr5 Disposition: 06:09 Co-signature as Attending Physician, Yevgeniy Mckee MD. mh7 Disposition: 06/05/20 03:52 Discharged to Home. Impression: Right Leg Laceration. - Condition is Stable. - Discharge Instructions: Laceration Care, Adult, [id number], Stitches, [place], or Adhesive Wound Closure, [id number]. - Prescriptions for Keflex 500 mg Oral Capsule - take 1 capsule by ORAL route every 8 hours for 7 days; 21 capsule. - Medication Reconciliation Form, Thank You Letter, Antibiotic Education, Prescription Opioid Use form. - Follow up: Private Physician; When: 48 Hours; Reason: Wound Recheck, Worsening of condition, Recheck today's complaints, Re-evaluation by your physician. Follow up: Emergency Department; When: 48 Hours; Reason: Wound Recheck. - Problem is new. - Symptoms have improved. Signatures: Dispatcher [employer] EDMS Angie Llanos RN RN Osiel Bourgeois RN RN 5 Yevgeniy Mckee MD MD mh7 Corrections: (The following items were deleted from the chart) 03:57 03:52 06/05/2020 03:52 Discharged to Home. Impression: Right Leg Laceration. Condition rr5 is Stable. Forms are Medication Reconciliation Form, Thank You Letter, Antibiotic Education, Prescription Opioid Use. Follow up: Private Physician; When: 48 Hours; Reason: Wound Recheck, Worsening of condition, Recheck today's complaints, Re-evaluation by your physician. Follow up: Emergency Department; When: 48 Hours; Reason: Wound Recheck. Problem is new. Symptoms have improved. mh7
[2020-06-05 04:02] VITALS: TEMP 98.1
[2020-06-05 04:03] VITALS: BP 148/85; O2SAT 100
--- NOTE | 2020-06-07 11:45 | RAD REPORT ---
EXAM DESCRIPTION: XR TIBIA FIBULA CLINICAL HISTORY: Trauma TECHNIQUE: Two views of the right lower leg are submitted. COMPARISON: None available for comparison FINDINGS: Bones: Remote distal fibular lateral plate and screw fixation. Remote medial malleolus fra cture with nonunion. No acute fracture. Joints: No dislocation. Soft tissues: Soft tissue laceration along the anterolateral aspect of the leg at the distal diaphyse al level. Other: Atherosclerotic disease. IMPRESSION: Soft tissue laceration along the anterolateral aspect of the leg at the distal diaphysea l level. No acute fracture. Electronically signed by: Aida Reyes MD 06/05/2020 3:17 AM CDT Due to temporary technical issues with the PACS/Fluency reporting system, reports are being signed by the in house radiologist without review as a courtesy to ensure prompt reporting. The interpreting r adiologist is fully responsible for the content of the report.
== END 2020-06-05 03:57 | disposition home or self-care (01) ==
LOC: ER 02:17
PROC: 0JQN0ZZ Repair Right Lower Leg Subcutaneous Tissue and Fascia, Open Approach (ICD-10-PCS; principal; 2020-06-05)
DX: S81.811A Laceration without foreign body, right lower leg, initial encounter (principal); W26.9XXA Contact with unspecified sharp object(s), initial encounter; Y93.E9 Activity, other interior property and clothing maintenance; Y92.009 Unspecified place in unspecified non-institutional (private) residence as the place of occurrence of the external cause; I10 Essential (primary) hypertension; E11.9 Type 2 diabetes mellitus without complications; F17.210 Nicotine dependence, cigarettes, uncomplicated; Z85.05 Personal history of malignant neoplasm of liver
CPT/HCPCS: 73590; 96372; 99284; 12002; J0690

== ENCOUNTER 2020-06-11 09:04 | Emergency (ER) | payer OTHER ==
--- OUTSIDE RECORDS SUMMARY | 2020-06-11 09:21 | XMS REPORT | Continuity of Care Document ---
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 [facility] VOMITING, 19 Perfecto DEHYDRATION Diabetes 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 mellitus [place] (disorder) Hypertensive 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 disorder, [place] systemic arterial (disorder) Vomiting, 05/17/2019 [place] unspecified VOMITING, Active [facility] UNSPECIFIED Perfecto DEHYDRATION Active [facility] Medications Medication Details Route Status Patient Ordering [...] kg, Priority: STAT, Start date: 11/11/19 19:26:00 MARBLEIZER, Stop date: 11/11/19 19:26:00 MARBLEIZER Zofran ODT 4 mg, Route: Inactive PO, Drug form: 2019 TABDIS, ONCE, Dosing Weight 84.091, kg, Priority: STAT, Start date: 11/11/19 18:43:00 MARBLEIZER, Stop date: 11/11/19 18:43:00 MARBLEIZER Dexamethasone 10 mg, 2.5 mL, Inactive Route: IM, Drug [facility] t form: INJ, ONCE, Dosing Weight 84.091, kg, Priority: STAT, Start date: 11/11/19 18:42:00 MARBLEIZER, Stop date: 11/11/19 18:42:00 MARBLEIZER, 0 Metformin Notes: (Same Inactive hydrochloride as: [...] Notes: (Same Inactive 0.9% as: BD 2018 [facility] Posiflush) Sodium Chloride 1,000 mL, 1000 Inactive 0.9% (Bolus) IV ml/hr, Infuse 2018 [place] Over: 1 hr, Route: IV, 1,000, Drug form: INJ, ONCE, Priority: STAT, Dosing Weight 84.091 kg, Start date: 10/19/19 10:48:00 MARBLEIZER, Stop date: 10/19/19 10:48:00 MARBLEIZER, 0 Lisinopril Notes: (Same Inactive as: Prinivil, 2019 [place] Zestril) cefdinir 300 MG Notes: (Same Inactive Oral Capsule As: Omnicef) 2019 [place] cefdinir 300 MG 300 mg = 1 cap, Active Oral Capsule PO, Q12H, X 5 2019 Mary[place] and day, # 10 cap, 0 Refill(s), Pharmacy: [facility] [address] Rocephin + Notes: [...] (Same No Longer as: Zofran) Active 2019 [facility] MEDICATION WASTE Product Size: 4 mg Product Wasted: ___ mg Bisacodyl Notes: (Same No Longer As: Dulcolax, Active 2019 [facility] Bisco-Lax) Morphine 2 mg, 1 mL, No Longer Route: IVP, Active 2019 [facility] Drug form: SOLN, Q4H, Dosing Weight 72.727, kg, PRN Pain Score 7-10, Start date: 05/13/19 1:04:00 CDT, Duration: 30 day, Stop date: 06/12/19 1:03:00 CDT, 0 Sodium Chloride 1,000 mL, Rate: Inactive 0.9% IV 1,000 100 ml/hr, 2019 [facility] + M.V.I.-12 Infuse over: 10 [...] No Longer 0.9% as: BD Active 2019 [facility] Posiflush) Saline Flush Notes: (Same No Longer 0.9% as: BD Active 2019 [facility] Posiflush) Sodium Chloride 1,000 mL, 1000 Inactive 0.9% (Bolus) IV ml/hr, Infuse 2019 Nader gibson Over: 1 hr, Route: IV, 1,000, Drug form: INJ, ONCE, Priority: STAT, Dosing Weight 72.727 kg, Start date: 05/12/19 17:01:00 CDT, Stop date: 05/12/19 17:01:00 CDT, 0 Ondansetron Notes: (Same Inactive as: Zofran) 2018 [facility] MEDICATION WASTE Product Size: 4 mg Product Wasted: ___ mg Famotidine Notes: (Same Inactive as: Pepcid) Can 2019 [facility] be dilute in 5-10cc NS IVP: Slow IV push over at least 2 minutes. Morphine Notes: (Same Inactive as:MORPhine 2019 [facility] Sulfate) Ativan Notes: (Same Inactive as: Ativan) 2018 [facility] Allergies, Adverse Reactions, Alerts No Known Medication [...] CHEM PANEL eGFR 90 10/19 Comment: The [facility] eGFR is calculated using the CKD-EPI formula. [...] AGAP 12.8 10.0 - 10/19 MH 20.0 [facility] CHEM PANEL B/C Ratio 14 6 - 25 10/19 [facility] CHEM PANEL Globulin 4.3 2.7 - 4.2 10/19 [facility] CHEM PANEL A/G Ratio 0.8 0.7 - 1.6 10/19 [facility] HEMATOLOGY WBC 14.8 3.7 - 10.4 10/19 [facility] HEMATOLOGY RBC 5.21 4.70 - 10/19 MH 6.10 [facility] HEMATOLOGY Hgb 16.5 14.0 - 10/19 MH 18.0 [facility] HEMATOLOGY Hct 48.2 42.0 - 10/19 MH 54.0 [facility] HEMATOLOGY MCV 92.5 80.0 - 10/19 MH 94.0 /2018 [facility] HEMATOLOGY MCH 31.6 27.0 - 10/19 MH 31.0 [facility] HEMATOLOGY MCHC 34.2 32.0 - 10/19 36.0 /2018 [facility] HEMATOLOGY RDW 13.0 11.5 - 10/19 14.5 [facility] HEMATOLOGY Platelet 234 133 - 450 10/19 /2018 [facility] HEMATOLOGY MPV 9.4 7.4 - 10.4 10/19 [facility] HEMATOLOGY RBC Morph Normal Normal 10/19 (10/19/19 11:47 AM) /2018 [place] HEMATOLOGY Plt Morph Normal Normal 10/19 (10/19/19 11:47 AM) /2018 [place] HEMATOLOG[facility] Segs 57.2 45.0 - 10/19 75.0 [facility] HEMATOLOGY Lymphocytes 27.5 20.0 - 10/19 MH 40.0 [facility] HEMATOLOGY Monocytes 12.2 2.0 - 12.0 10/19 /2018 [facility] HEMATOLOGY Eosinophils 1.6 0.0 - 4.0 10/19 /2018 [facility] HEMATOLOGY Basophils 1.5 0.0 - 1.0 10/19 /2018 [facility] HEMATOLOGY Neutrophils 8.5 1.5 - 8.1 10/19 MH # /2019 [facility] HEMATOLOGY Lymphocytes 4.1 1.0 - 5.5 10/19 MH # /2019 [facility] HEMATOLOGY Monocytes # 1.8 0.0 - 0.8 10/19 /2018 [facility] HEMATOLOGY Eosinophils 0.2 0.0 - 0.5 10/19 # /2019 [facility] HEMATOLOGY Basophils # 0.2 0.0 - 0.2 10/19 /2018 [facility] IMMUNOLOGY HIV Ag/Ab Negative Negative 05/15 4th Gen *NA* [facility] (05/15/19 4:04 AM) CHEM PANEL Procalcitoni 0.96 0.00 - 05/14 n Lvl 0. [facility] IMMUNOLOGY Hep B Core Negative Negative 05/14 IgM *NA* [facility] (05/14/19 9:48 AM) IMMUNOLOGY Hep Bs Ag Negative Negative 05/14 MH *NA* [facility] (05/14/19 9:48 AM) IMMUNOLOGY Hep A IgM Negative Negative 05/14 MH *NA* [facility] (05/14/19 9:48 AM) IMMUNOLOGY Hep C Ab Positive 05/14 *ABN* /2018 [facility] (05/14/19 9:48 AM) TUMOR AFP 48.3 0.0 - 11.0 05/14 [facility] CHEM PANEL Phosphorus 2.7 2.5 - 4.5 05/14 [facility] CHEM PANEL Magnesium 2.0 1.8 - 2.4 05/14 Lvl [facility] CHEM PANEL eGFR 92 05/14 [facility] Comment: The [facility] eGFR is calculated using the CKD-EPI formula. [...] Bili Total 1.8 0.2 - 1.3 05/14 [facility] CHEM PANEL Alk Phos 85 39 - 136 05/14 [facility] CHEM PANEL AST 219 0 - 37 05/14 [facility] CHEM PANEL Creatinine 0.93 0.50 - 07 MH Lvl 1.40 [facility] CHEM PANEL BUN 15 7 - 22 05/14 [facility] CHEM PANEL Glucose Lvl 86 70 - 99 05/14 [facility] CHEM PANEL ALT 154 0 - 65 05/14 [facility] CHEM PANEL Albumin Lvl 2.8 3.5 - 5.0 05/14 [facility] CHEM PANEL CO2 19 24 - 32 05/14 [facility] CHEM PANEL Total 6.5 6.4 - 8.4 05/14 [facility] CHEM PANEL Calcium Lvl 8.1 8.5 - 10.5 07 [facility] CHEM PANEL Potassium 4.2 3.5 - 5.1 07/10 MH Lvl /2019 [facility] CHEM PANEL Chloride Lvl 103 95 - 109 05/14 [facility] CHEM PANEL Sodium Lvl 132 135 - 145 07 [facility] CHEM PANEL Globulin 3.7 2.7 - 4.2 07 [facility] CHEM PANEL A/G Ratio 0.8 0.7 - 1.6 05/14 [facility] CHEM PANEL B/C Ratio 16 6 - 25 07 [facility] CHEM PANEL AGAP 14.2 10.0 - 07 MH 20.0 [facility] HEMATOLOGY MPV 10.4 7.4 - 10.4 05/14 [facility] HEMATOLOGY RBC 5.83 4.70 - 05/14 MH 6.10 [facility] HEMATOLOGY MCHC 35.1 32.0 - 05/14 MH 36.0 [facility] HEMATOLOGY MCV 90.5 80.0 - 05/14 MH 94.0 [facility] HEMATOLOGY Hgb 18.5 14.0 - 05/14 MH 18.0 [facility] HEMATOLOGY Hct 52.7 42.0 - 07 MH 54.0 [facility] HEMATOLOGY WBC 5.1 3.7 - 10.4 05/14 [facility] HEMATOLOGY Platelet 65 133 - 450 05/14 [facility] HEMATOLOGY RDW 13.2 11.5 - 05/14 MH 14.5 [facility] HEMATOLOGY MCH 31.8 27.0 - 05/14 MH 31.0 [facility] HEMATOLOGY Lymphocytes 12.5 20.0 - 07 MH 40.0 [facility] HEMATOLOGY Monocytes # 0.4 0.0 - 0.8 05/14 [facility] HEMATOLOGY Lymphocytes 0.6 1.0 - 5.5 / MH # /2018 [facility] HEMATOLOGY Basophils 0.6 0.0 - 1.0 05/14 [facility] HEMATOLOGY Neutrophils 4.0 1.5 - 8.1 10 MH # /2018 [facility] HEMATOLOGY Monocytes 8.3 2.0 - 12.0 05/14 [facility] HEMATOLOGY Segs 78.6 45.0 - 0710 MH 75.0 /2019 [facility] URINE AND UA Mucus Few /LPF None Seen 05/14 STOOL /LPF /2018 [facility] URINE AND UA RBC 3 0 - 2 05/14 STOOL [facility] URINE AND UA Sq Epi Occasional Few /LPF 05/14 [facility] /LPF [facility] URINE AND UA WBC 2 0 - 5 05/14 STO[facility] URINE AND UA Leuk Est Negative Negative 05/14 [facility] (05/13/19 9:45 PM) /2018 [place] URINE AND Micro? Not Indicated 05/14 STOOL *NA* [facility] (05/13/19 9:45 PM) URINE AND UA Bili Negative Negative 05/14 STOOL *NA* [facility] (05/13/19 9:45 PM) URINE AND UA Nitrite Negative Negative 05/14 [facility] (05/13/19 9:45 PM) /2018 [place] URINE AND UA Blood Negative Negative 05/14 [facility] (05/13/19 9:45 PM) [place] URINE AND UA pH 5.0 5.0 - 8.0 05/14 [facility] URINE AND UA 4.0 0.1 - 1.0 05/14 [facility] Urobilinogen /2018 [facility] URINE AND UA Turbidity Clear Clear 05/14 [facility] (05/13/19 9:45 PM) [place] URINE AND UA Color Anupama Yellow 05/14 STOOL *ABN* [facility] (05/13/19 9:45 PM) URINE AND UA Spec Grav 1.016 <=1.030 05/14 STOOL [facility] URINE AND UA Protein Negative Negative 05/14 [facility] mg/dL mg/dL [facility] URINE AND UA Glucose Negative Negative 05/14 [facility] mg/dL mg/dL [facility] URINE AND UA Ketones Negative Negative 05/14 [facility] mg/dL mg/dL [facility] Culture: <10,000 05/14 Urine CFU/mL [facility] CHEM PANEL Lactic Acid 1.7 0.5 - 2.2 05/14 Lvl [facility] DRUG U Benzodiaz Negative Negative 05/13 SCREEN Scr *NA* [facility] (05/13/19 5:10 AM) DRUG U Bouchra Scr Negative Negative 05/13 SCREEN *NA* [facility] (05/13/19 5:10 AM) DRUG U Amph Scr Positive Negative 05/13 SCREEN *ABN* /2018 [facility] (05/13/19 5:10 AM) DRUG UDS Note See Note 05/13 MH SCREEN (05/13/19 5:10 AM) /2018 [place] DRUG U Negative Negative 05/13 SCREEN Phencyclidin *NA* [facility] e Scr (05/13/19 5:10 AM) DRUG U Opiate Scr Positive Negative 05/13 SCREEN *ABN* /2018 [facility] (05/13/19 5:10 AM) DRUG U Cocaine Negative Negative 05/13 SCREEN Scr *NA* /2018 [facility] (05/13/19 5:10 AM) DRUG U Cannab Scr Positive Negative 05/13 SCREEN *ABN* [facility] (05/13/19 5:10 AM) URINE AND UA Bacteria Occasional None Seen 05/13 STOOL /HPF /HPF /2018 [facility] URINE AND UA Mucus Few /LPF None Seen 05/13 STOOL /LPF /2018 [facility] URINE AND UA Sq Epi None Seen 05/13 STOOL [facility] URINE AND UA Leuk Est Negative Negative 05/13 STOOL (05/13/19 5:10 AM) [place] URINE AND UA Nitrite Negative Negative 05/13 STOOL (05/13/19 5:10 AM) [place] URINE AND UA WBC 1 0 - 5 05/13 STOOL [facility] URINE AND UA RBC 2 0 - 2 05/13 STOOL [facility] URINE AND UA Glucose Negative Negative 05/13 STOOL mg/dL mg/dL [facility] URINE AND UA Ketones Negative Negative 05/13 STOOL mg/dL mg/dL [facility] URINE AND UA Bili Negative Negative 05/13 STOOL *NA* /2018 [facility] (05/13/19 5:10 AM) URINE AND UA Blood Negative Negative 05/13 STOOL (05/13/19 5:10 AM) [place] URINE AND UA 4.0 0.1 - 1.0 05/13 STOOL Urobilinogen /2018 [facility] URINE AND UA Spec Grav 1.048 <=1.030 05/13 STOOL [facility] URINE AND UA pH 5.0 5.0 - 8.0 05/13 STOOL [facility] URINE AND UA Protein Negative Negative 05/13 STOOL mg/dL mg/dL [facility] URINE AND UA Color Anupama Yellow 05/13 STOOL *ABN* /2018 [facility] (05/13/19 5:10 AM) URINE AND UA Turbidity Clear Clear 05/13 STOOL (05/13/19 5:10 AM) [facility] CHE[facility] PAN[facility] eGFR 96 05/13 Result Comment: The [facility] eGFR is calculated using the CKD-EPI formula. In most young, healthy individuals the eGFR will be >90 mL/min/1.73m2 . The eGFR declines with age. An eGFR of 60-89 may be normal in some populations, particularly the elderly, for whom the CKD-EPI formula has not been extensively validated. Use of the eGFR is not recommended in the following populations:< br/>
Rneetta viduals with unstable creatinine concentration s, including [...] 0.90 0.50 - 07 MH Lvl 1.40 [facility] CHEM PANEL Glucose Lvl 114 70 - 99 05/13 [facility] CHEM PANEL BUN 13 7 - 22 05/13 [facility] CHEM PANEL Calcium Lvl 8.8 8.5 - 10.5 05/13 [facility] CHEM PANEL Sodium Lvl 130 135 - 145 05/13 [facility] CHEM PANEL Potassium 4.1 3.5 - 5.1 / MH Lvl [facility] CHEM PANEL Chloride Lvl 99 95 - 109 / [facility] CHEM PANEL CO2 21 24 - 32 / [facility] CHEM PANEL AGAP 14.1 10.0 - 07/ MH 20.0 [facility] CARDIAC Troponin-I <0.02 0.00 - 07/08 ENZYMES 0.40 [facility] CHEM PANEL Lipase Lvl 461 73 - 393 / [facility] CHEM PANEL AST 134 0 - 37 07/08 MH /2019 [facility] CHEM PANEL eGFR 80 07/08 Result Comment: The [facility] eGFR is calculated using the CKD-EPI formula. [...] 0.50 - 07/ MH Lvl 1.40 /2019 [facility] CHEM PANEL Potassium 4.2 3.5 - 5.1 07/08 MH Lvl [facility] CHEM PANEL Sodium Lvl 131 135 - 145 07/ MH [facility] CHEM PANEL Calcium Lvl 8.8 8.5 - 10.5 05/12 [facility] CHEM PANEL CO2 21 24 - 32 / [facility] CHEM PANEL Chloride Lvl 99 95 - 109 07/ MH [facility] CHEM PANEL ALT 143 0 - 65 07/08 MH [facility] CHEM PANEL Albumin Lvl 3.3 3.5 - 5.0 07/08 MH [facility] CHEM PANEL Glucose Lvl 165 70 - 99 07/08 MH [facility] CHEM PANEL BUN 13 7 - 22 07/ MH [facility] CHEM PANEL Bili Total 1.3 0.2 - 1.3 07/08 MH [facility] CHEM PANEL Total 7.7 6.4 - 8.4 07/08 MH Protein [facility] CHEM PANEL Alk Phos 94 39 - 136 / MH [facility] CHEM PANEL AGAP 15.2 10.0 - 07/08 MH 20.0 /2019 [facility] CHEM PANEL B/C Ratio 12 6 - 25 07/08 MH [facility] CHEM PANEL Globulin 4.4 2.7 - 4.2 07/08 /2018 [facility] CHEM PANEL A/G Ratio 0.8 0.7 - 1.6 07/ /2018 [facility] HEMATOLOGY INR 1.03 0.85 - 07/ MH 1.17 [facility] HEMATOLOGY PT 13.3 12.0 - 07/08 MH 14.7 /2018 [facility] HEMATOLOGY PTT 39.2 22.9 - 07/08 MH 35.8 /2018 [facility] HEMATOLOGY RDW 13.4 11.5 - 07 MH 14.5 [facility] HEMATOLOGY Platelet 98 133 - 450 07/ /2018 [facility] HEMATOLOGY MPV 9.3 7.4 - 10.4 07 /2018 [facility] HEMATOLOGY MCV 91.0 80.0 - 05/12 MH 94.0 /2018 [facility] HEMATOLOGY MCH 32.1 27.0 - 07/ MH 31.0 /2018 [facility] HEMATOLOGY MCHC 35.3 32.0 - 05/12 MH 36.0 [facility] HEMATOLOGY WBC 9.0 3.7 - 10.4 07/08 /2018 [facility] HEMATOLOGY RBC 6.03 4.70 - 0708 MH 6.10 /2018 [facility] HEMATOLOGY Hgb 19.4 14.0 - 0708 MH 18.0 [facility] HEMATOLOGY Hct 54.8 42.0 - 0708 MH 54.0 /2018 [facility] HEMATOLOGY Lymphocytes 6.8 20.0 - 07/08 MH 40.0 /2018 [facility] HEMATOLOGY Neutrophils 8.0 1.5 - 8.1 /08 MH # /2018 [facility] HEMATOLOGY Basophils 0.4 0.0 - 1.0 07/08 /2018 [facility] HEMATOLOGY Monocytes 3.4 2.0 - 12.0 07/08 /2018 [facility] HEMATOLOGY Lymphocytes 0.6 1.0 - 5.5 07/08 MH # /2018 [facility] HEMATOLOGY Monocytes # 0.3 0.0 - 0.8 07/08 [facility] HEMATOLOGY Segs 89.4 45.0 - 07/08 MH 75.0 [facility] TOXICOLOGY Acetaminoph <2 10 - 20 07/08 Lvl (05/12/19 5:33 PM) /2018 [facility] TOXICOLOGY Etoh (%) <0.003 07/ [facility] TOXICOLOGY Ethanol Lvl <3 07/08 MH /2019 [facility] TOXICOLOGY Salicylate <1.7 0.0 - 30.0 05/12 Lvl /2018 [facility] Pathology Reports No Data Provided for This Section Diagnostic Reports Report Value Date Source Abdomen/Pelvis w IV Radiation Dose CTDIVOL = 0 (mGy): DLP = 635.9 (mGy-cm) 10/19/2019 [facility] contrast CT PROCEDURE INFORMATION: Exam: CT Abdomen [...] Lorenzo Jimenez MD On 10/19/2019 13:00:17; [id number] Abdomen w/wo EXAM: MRI of the abdomen wit hout and with 18 cc of Dotarem IV contrast 05/15/2019 [facility] contrast MRI INDICATION: Abdominal pain, liver mass [...] ascites . Multiple subcentimeter pancreatic cysts. SL: [id number] Chest 1view DX 1 view chest portable: 05/14/2019 [facility] HISTORY: Short of breath. FINDINGS: Both lungs are [place] ar. The heart and mediastinal contours are unremarkable. No pleural or bony pathology. IMPRESSION: No acute finding SL: EG-M Abdomen RUQ US Study: Abdomen RUQ US 05/13/2019 [facility] Clinical Indication: - right upper quadrant jaycob [...] 1view DX CLINICAL INDICATION: - vomiting 05/12/2019 [facility] COMPARISON: None. FINDINGS: The AP chest radiograph show s no interstitial or airspace opacities, pleural effusions or pneumothorax. The heart size is normal. The trachea is midline. No acute osseous abnormality is identified. Atherosclerotic calcifications are noted. IMPRESSION: No acute cardiopulmonary process. SL: AUDRE[facility] ED Abdomen/Pelvis PROCEDURE: CT ABDOMEN AND PELVIS WITH CONTRAST 05/12/2019 [facility] IV contrast only CT Clinical Indication: - [...] APPENDIX: Not visualized. No CT evidence for mariele endicitis. PERITONEUM: There is a small volume [...] 10/19/2019 [place] Systolic (mm Hg) 129 05/15/2019 [facility] Diastolic (mm Hg) 87 05/15/2019 [place] Respitory Rate 16 05/15/2019 [facility] Heart Rate 77 05/15/2019 [facility] Temperature Oral (F) 99.5 F 05/15/2019 [place] Temperature Oral (F) 97.5 F 05/15/2019 [place] Heart Rate 88 05/15/2019 [facility] Systolic (mm Hg) 114 05/15/2019 [facility] Diastolic (mm Hg) 70 [facility] 16 05/15/2019 [facility] Temperature Oral (F) 98.3 F 05/15/2019 [facility] Systolic (mm Hg) 134 05/15/2019 [facility] Diastolic (mm Hg) 87 05/15/2019 [facility] d Respitory Rate 16 05/15/2019 [facility] Heart Rate 76 05/15/2019 [facility] Weight 83.182 05/13/2019 [facility] Height 185.42 cm 05/13/2019 [facility] BMI Calculated 24.19 05/13/2019 [facility] BMI Calculated 21.15 05/12/2019 [facility] Weight 72.727 05/12/2019 [facility] Height 185.42 cm 05/12/2019 [facility] Encounters Location Location Encounter Encounter Reason Attending ADM DC Stat us Source Details Type Number For Provider Date Date Visit [facility] Inpatient [id number] Dave 05/12 05/16 [facility]2018 [facility] [id number] Ruperto Cedeno 10/19 10/19 [facility] /2018 [facility] [id number] Abdiwahab 11/12 11/12 [facility] Procedures Procedure Code Date Perfomer Comments Source Cholecystectomy [id number] [facility] [place],[facility] Assessment and Plan Assessment and Plan Date Source Extracted from:Title: ID progress note 05/16/2019 Randy Schmid Author: Mio Olivares MD Date: 05/15/19 [facility] INFECTIOUS DISEASES PROGRESS NOTE Stan Garcia M.D. [...] sterile water 10 mL) 1 gm IVPB [id number] 120 ml/hr LABORATORY (All labs have been [...]
--- OUTSIDE RECORDS SUMMARY | 2020-06-11 09:27 | XMS REPORT | Continuity of Care Document ---
:1965 Author Organization [facility] t Address [address] [place] [address] Care Team Providers Name Role Phone Chaya [...] Mem oria 1-07 06:18:00 l SOB 00:00: [place] 00 Active 11/11/2019 [facility] OTHER Diagnosis Active 2018-112019-11-17 Mem oria 215 06:42:00 l OTHER 00:00: [place] 00 Active 10/19/2019 [facility] ABDOMINAL Diagnosis Active 2019-05-12 Memoria PAIN 05-12 19:12:00 l 00:00: [place] ABDOMINAL 00 PAIN Active 05/12/2019 [facility] [place] INTRACTABL Diagnosis Active 2019-11-25 Memoria E 05-12 13:20:00 l VOMITING, 00:00: [place] DEHYDRATIO INTRACTABL 00 N E VOMITING, DEHYDRATIO N Active 05/12/2019 [facility] [place] Vomiting, Problem 2019-05-17 Mi moria unspecifie 22:27:25 l d [place] Vomiting, unspecifie d 05/17/2019 [facility] Diabetes Problem Resolve 2019-11-13 Me moria mellitus d 23:53:55 l (disorder) Diabetes He rmann mellitus (disorder) 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 [facility] Hypertensi Problem Resolve 2019-11-13 Memoria ve d 23:53:55 l disorder, [place] systemic Hypertensi arterial ve (disorder) disorder, systemic arterial (disorder) 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 [facility] VOMITING, Diagnosis Active 2019-11-25 Memoria UNSPECIFIE 13:20:00 l D [place] VOMITING, UNSPECIFIE D Active [facility] [place] DEHYDRATIO Diagnosis Active 2019-11-25 Memoria N 13:20:00 l [place] DEHYDRATIO N Active [facility] [place] Disorder Problem 2019-11-13 2019-11-13 Memoria of the 11-11 23:53:55 23:53:55 l skin and Disorder 18:00: Herm cata subcutaneo of the 00 us tissue, skin and unspecifie subcutaneo d us tissue, unspecifie d 11/11/2019 11/13/2019 [facility] Follicular Problem 2019-11-13 2019-11-13 Memoria disorder, 11-11 23:53:55 23:53:55 l unspecifie 18:00: Chuck neal Follicular 00 disorder, unspecifie d 11/11/2019 11/13/2019 [facility] Patient's Problem 2018-112019-10-21 2019-10-21 Memoria other 2-15 22:21:49 22:21:49 l noncomplia 18:00: Chuck dooley nce with Patient's 00 medication other regimen noncomplia nce with medication regimen 10/19/2019 10/21/2019 [facility] Hyperglyce Problem 2018-112019-10-21 2019-10-21 Memoria yanet, 2-15 22:21:49 22:21:49 l unspecifie 18:00: Chuck neal Hyperglyce 00 yanet, unspecifie d 10/19/2019 10/21/2019 [facility] Allergies, Adverse Reactions, Alerts Allergy Allergy Status Severity Reaction(s) Onset Inactive Treating Comm ents Source Name Type Date Date Clinician morphine DA Active [facility] 8[facility] [place] [facility] No Known DA Active [facility] Allergie 6-13 [place] [facility] 00:00: d 00 [facility] Social History Social Habit Start Date Stop Date Quantity Comments Source Social History 2019-05-13 2019-05-13 [facility] 19:52:05 19:52:05 Medications Ordered Filled Start Stop [...] kg, Priority: STAT, 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 date: 11/11/19 19:26:00 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, Stop date: 11/11/19 19:26:00 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 Zofran ODT 2020-0 No 4 mg, Memori a -08 Route: PO, l 00:43: Drug form: [place] 00 TABDIS, ONCE, Dosing Weight 84.091, kg, Priority: STAT, Start date: 11/11/19 18:43:00 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, Stop date: 11/11/19 18:43:00 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 Dexamethaso 2020-0 No 10 mg, 2.5 Memoria ne 1-08 mL, Route: l 00:42: IM, Drug form: INJ, ONCE, Dosing Weight 84.091, kg, Priority: STAT, Start date: 11/11/19 18:42:00 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, Stop date: 11/11/19 18:42:00 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, 0 Metformin 2019- No Notes: Memori a [...] 0.9% 2-15 (Same as: l 16:48: BD [place] 00 Posiflush) Sodium 2018-11 No 1,000 mL, Memori a Chloride 2-15 1000 l 0.9% 16:48: ml/hr, [place] (Bolus) IV 00 Infuse Over: 1 hr, Route: IV, 1,000, Drug form: INJ, ONCE, Priority: STAT, Dosing Weight 84.091 kg, Start date: 10/19/19 10:48:00 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, Stop date: 10/19/19 10:48:00 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, 0 Lisinopril 2018-11 No Notes: Memor ia 2-15 (Same as: l 16:48: Prinivil, [place] 00 Zestril) cefdinir No Notes: Memoria 300 MG Oral 7-12 (Same As: l Capsule 02:00: Omnicef) Chuck n 00 cefdinir Yes 300 mg = 1 Mem oria 300 MG Oral 7-11 cap, PO, l Capsule 21:39: Q12H, X 5 Monik nn 00 day, # 10 cap, 0 Refill(s), Pharmacy: [facility] [address] [place] [address] + No Notes: Memor ia sterile 7-10 [...] Rate: 100 l 0.9% IV 04:29: ml/hr, [place] 1,000 mL + 00 Infuse M.V.I.-12 over: [...] 0.9% 7-08 (Same as: l 22:02: BD [place] 00 Posiflush) Saline No Notes: Memoria Flush 0.9% 7-08 (Same as: l 22:01: BD [place] 00 Posiflush) Sodium 2019 No 1,000 mL, Memori a Chloride 7-08 1000 l 0.9% 22:01: ml/hr, [place] (Bolus) IV 00 Infuse Over: 1 hr, Route: IV, 1,000, Drug form: INJ, ONCE, Priority: STAT, Dosing Weight 72.727 kg, Start date: 05/12/19 17:01:00 CDT, Stop date: 05/12/19 17:01:00 CDT, 0 Ondansetron No Notes: Nikita jelly 7-08 (Same as: l 22:01: Zofran) [place] 00 MEDICATION WASTE Product Size: 4 mg [...] Temperature Oral (F) 2019-11-12 01:45:00 98.0 F [facility] [place] Heart Rate 2019-11-12 01:45:00 [facility] [place] Respitory Rate 2019-11-12 01:45:00 Memori al [place] Systolic (mm Hg) 2019-11-12 01:45:00 Nikita rial [place] Diastolic (mm Hg) 2019-11-12 01:45:00 Mem orial [place] Systolic (mm Hg) 2019-11-12 00:47:00 Nikita rial [place] Diastolic (mm Hg) 2019-11-12 00:47:00 Mem orial [place] Heart Rate 2019-11-12 00:47:00 [facility] [place] Respitory Rate 2019-11-12 00:47:00 Memori al [place] Temperature Oral (F) 2019-11-12 00:47:00 98.1 F [facility] [place] Height 2019-11-12 00:47:00 182.88 cm [facility] [place] BMI Calculated 2019-11-12 00:47:00 [facility] [place] Weight 2019-11-12 00:47:00 [facility] [place] Systolic (mm Hg) 2019-10-19 19:19:00 Nikita rial [place] Diastolic (mm Hg) 2019-10-19 19:19:00 Mem orial [place] Respitory Rate 2019-10-19 19:19:00 Memori al [place] Heart Rate 2019-10-19 19:19:00 [facility] [place] Temperature Oral (F) 2019-10-19 19:19:00 98.7 F [facility] [place] Systolic (mm Hg) 2019-10-19 17:45:00 Nikita rial [place] Diastolic (mm Hg) 2019-10-19 17:45:00 Mem orial [place] Respitory Rate 2019-10-19 17:45:00 Memori al [place] Heart Rate 2019-10-19 17:45:00 [facility] [place] Systolic (mm Hg) 2019-10-19 16:28:00 Nikita rial [place] Diastolic (mm Hg) 2019-10-19 16:28:00 Mem orial [place] Heart Rate 2019-10-19 16:28:00 [facility] [place] Respitory [...] al [place] Heart Rate 2019-05-15 21:09:00 [facility] [place] Temperature Oral (F) 2019-05-15 21:09:00 99.5 F [facility] [place] Temperature Oral (F) 2019-05-15 16:52:00 97.5 F [facility] [place] Heart Rate 2019-05-15 16:52:00 [facility] [place] Systolic (mm Hg) 2019-05-15 16:52:00 Nikita rial [place] Diastolic (mm Hg) 2019-05-15 16:52:00 Mem orial [place] Respitory Rate 2019-05-15 16:52:00 Memori al [place] Temperature Oral (F) 2019-05-15 12:48:00 98.3 F [facility] [place] Systolic (mm Hg) 2019-05-15 12:48:00 Nikita rial [place] Diastolic (mm Hg) 2019-05-15 12:48:00 Mem orial [place] Respitory Rate 2019-05-15 12:48:00 Memori al [place] Heart Rate 2019-05-15 12:48:00 [facility] [place] Weight 2019-05-13 19:57:00 [facility] [place] Height 2019-05-13 19:57:00 185.42 cm [facility] [place] BMI Calculated 2019-05-13 19:57:00 Memori al [place] BMI Calculated 2019-05-12 21:49:00 Memori al [place] Weight 2019-05-12 21:49:00 [facility] [place] Height 2019-05-12 21:49:00 185.42 cm [facility] [place] Procedures Procedure Date / Time Performed Performing Clinician Sourc e Cholecystectomy [facility] [place] Encounters Start End Encounter Admission Attending Care Care Encounter Source Date/Time Date/Time Type Type Clinicians Facility Department ID 2019-05-12 Inpatient E [facility] MED 7500 MHB L 23:36:00 2019-11-11 2019-11-11 Outpatient CLAUDIA HaynesSE [id number] 8702 18:37:11 19:55:00 Abdiwahab 02 English 2019-11-11 2019-11-11 Emergency E AMOSSE MHSE 7502 MH 18:37:00 18:37:00 [facility] 2019-10-19 2019-10-19 Outpatient Ruperto Cedeno SE SE [id number] 10:27:21 13:25:00 Q 01 2019-10-19 2019-10-19 [facility] 10:27:00 10:27:00 Susan estevez [facility] 2019-05-12 2019-05-[address] [id number] 475 16:46:41 20:14:00 Peter 00 Results Test [...] CA) 9.5 MG/DL 8.5-10.1 N HEPATIC FUNCTION [id number] 12:34:00 Test Item Value Reference Range Interpretation [...] 291 Unit/L 50-136 H code = ALKP) [id number] 12:34:00 Test Item Value Reference Range Interpretation Comments LIPASE (test code = LIP) 207 Unit/L 114-286 N BASIC METABOLIC [id number] 12:29:00 Test Item Value Reference Range Interpretation [...] CA) 9.5 MG/DL 8.5-10.1 N HEPATIC FUNCTION [id number] 12:29:00 Test Item Value Reference Range Interpretation [...] TOTAL (test Unit/L 50-136 code = ALKP) [id number] 12:29:00 Test Item Value Reference Range Interpretation Comments LIPASE (test code = LIP) 207 Unit/L 114-286 N CBC W/AUTO [id number] 12:17:00 Test Item Value Reference Range Interpretation [...] DIFF/SCN CRITERIA MDIFF) - CT ABD PELVIS [id number] 11:10:00 Name: LUBNA LEACH [facility] : 1965 Age/S: 54 / M [address] Unit #: [id number] Loc: [place] [address] Phys: Nito Golden MD Acct: [id number] Dis Date: Status: REG ER PHONE #: [phone] Exam Date: 11/22/2019 1052 FAX #: Reason: rlq pain EXAMS: CPT: [id number] CT ABD PELVIS W/CONT 68677 LOCATION: T18 EXAM: CT ABDOMEN AND PELVIS [...] 11/22/2019 (1113) PAGE 1 Signed ReportBASIC METABOLIC [id number] 10:40:00 Test Item Value Reference Range Interpretation [...] CA) 9.0 MG/DL 8.5-10.1 N HEPATIC FUNCTION [id number] 10:40:00 Test Item Value Reference Range Interpretation [...] 112 Unit/L 50-136 N code = ALKP) [id number] 10:40:00 Test Item Value Reference Range Interpretation Comments LIPASE (test code = LIP) 106 Unit/L 114-286 L UA RFLX MICR CULT IF [id number] 10:12:00 Test Item Value Reference Range Interpretation [...] URINE: CLEAN CATCHIndication for culture: Dysuria/FrequencyCBC W/AUTO [id number] 09:46:00 Test Item Value Reference Range Interpretation [...] CRITERIA MDIFF) UA RFLX MICR CULT IF [id number] 09:45:00 Test Item Value Reference Range Interpretation [...] OF URINE: CLEAN CATCHIndication for culture: Dysuria/FrequencyCHEM [id number] 17:47:22389Xjqdibqt HermannCHEM [id number] 17:47:0013 [facility]annCHE[facility] [id number] 17:47:000.95[facility] HermannCHEM PANEL 2019-10-19 17:47:03710Bondxpto HermannCHEM [id number] 17:47:003.8[facility] HermannCHEM [id number] 17:47:0097[facility] HermannCHEM [id number] 17:47:0028[facility] HermannCHEM [id number] 17:47:009.1[facility] HermannCHEM [id number] 17:47:007.7[facility] HermannCHEM [id number] 17:47:003.4 [facility]annCHEM [id number] 17:47:0070[facility] HermannCHEM PANEL 2019-10-19 17:47:0052[facility] HermannCHEM [id number] 17:47:28828Vnntrxtq HermannCHEM [id number] 17:47:000.6[facility] HermannCHEM [id number] 17:47:0090[facility] HermannCHEM [id number] 17:47:0012.8[facility] HermannCHEM [id number] 17:47:00 Test Item Value Reference Range Interpretation Comments B/C Ratio (test code = B/C Ratio) 14 1 6-25 [facility] HermannCHEM [id number] 17:47:004.3[facility] HermannCHEM PANEL 2019-10-19 17:47:00 Test Item Value Reference Range Interpretation Comments A/G Ratio (test code = A/G Ratio) 0.8 1 0.7-1.6 Memorial AtparcgLMQHQCIPSV1425-90-42 17:47:0014.8[facility] HermannHEMATOLOGY 2019-10-19 17:47:005.21[facility] IsbckokKBIYSJBVDL2235-32-18 17:47:0016.5[facility] LjroervISBVLYYHJQ1835-61-58 17:47:0048.2[facility] IpxorxnUQQPPKXWCA0162-97-06 17:47:0092.5[facility] DzfgzqiFTWOYWMGTI1887-09-15 17:47:00 Test Item Value Reference Range Interpretation Comments MCH (test code = MCH) 31.6 pg 27.0-31.0 [facility] FovgnreFZWWWBOTEU0040-42-13 17:47:0034.2[facility] HermannHEMATOLOGY 2019-10-19 17:47:0013.0[facility] SzwodraTXNADBIONM3218-94-87 17:47:36595Mkgimqxv SbhuwvuYSZQECSJGR3636-39-13 17:47:009.4[facility] XunfhalRYKOLUBLWP3313-61-59 17:47:00Normal (10/19/19 11:47 AM)[facility] NxkxnxlGYYPUHRGBG8964-03-79 17:47:00 Normal (10/19/19 11:47 AM)[facility] FfihkvbWWKCZNPGTM4941-37-96 17:47:0057.2 Memorial GvqevagZNVDRZXPNH0064-87-12 17:47:0027.5[facility] HermannHEMATOLOGY 2019-10-19 17:47:0012.2[facility] LhpduoaARCTTAILRX3886-47-88 17:47:001.6[facility] VlvmshjDIZAUVDSMT4712-39-77 17:47:001.5[facility] AofgxpyUGYCBUFCND0355-32-75 17:47:008.5[facility] HoptfivWZDTEDCEAN9928-08-40 17:47:004.1[facility] [place] EFLXNRTINY2647-01-42 17:47:001.8[facility] TsgsrlsWTDNRHKSAT6856-13-92 17:47:000.2 [facility] JmzzovkYJVNXICYST8608-60-60 17:47:000.2[facility] HermannCBC W/AUTO DIFF 2019-10-14 23:05:00 Test [...] AUTO DIFFERENTIAL. UA RFLX MICR CULT IF [id number] 22:39:00 Test Item Value Reference Range Interpretation [...] CATCHIndication for culture: Dysuria/Frequency- CT ABD PELVIS [id number] 22:30:00 Name: LUBNA LEACH [facility] : 1965 Age/S: 54 / M [address] Unit #: [id number] Loc: [place] [address] Phys: Lino Ordaz MD Acct: [id number] Dis Date: Status: REG ER PHONE #: [phone] Exam Date: 10/14/2019 2220 FAX #: Reason: abdominal pain EXAMS: CPT: [id number] CT ABD PELVIS W/CONT 93901 EXAM: - CTABD PELVIS W/CONT HISTORY: Abdominal [...] LEACH : 1965 Age/S: 54 / M [address] Unit #: [id number] Loc: [place] [address] Phys: Lino Ordaz MD Acct: [id number] Dis Date: Status: REG ER PHONE #: [phone] Exam Date: 10/14/20192219 FAX #: Reason: abdominal pain EXAMS: CPT: [id number] CT ABD PELVIS W/CONT 76071 <Continued> at 2230 Reported and signed by: Choco Wells M.D. CC: Lino Ordaz MD; Nuha BARRAZA Technologist:Leeroy Maldonado, RT(R)(CT)(MRI) CTDI: DLP: Trnscb Date/Time: 10/14/2019 (2229) [email or web address] Orig Print D/T: S: 10/14/2019 (2232) PAGE 2 Signed Report UA RFLX MICR CULT IF [id number] 22:21:00 Test Item Value Reference Range Interpretation [...] CLEAN CATCHIndication for culture: Dysuria/Frequency COMPREHENSIVE METABOLIC [id number] 21:35:00 Test Item Value Reference Range Interpretation [...] code = ALKP) - XR CHEST 1 [id number] 21:30:00 Name: LUBNA LEACH [facility] : 1965 Age/S: 54 / M [address] Unit #: [id number] Loc: [place] [address] Phys: Lino Ordaz MD Acct: [id number] Dis Date: Status: REG ER PHONE #: [phone] Exam Date: 10/14/20192112 FAX #: Reason: liver failure EXAMS: CPT: [id number] XR CHEST 1 V 63460 Fluoro Time: DAP (Gy m2): Air Kerma [...] PAGE 1 Signed Report Name: LUBNA LEACH [facility] : 1965 Age/S: 54 / M [address] Unit #: [id number] Loc: [place] [address] Phys: Lino Ordaz MD Acct: [id number] Dis Date: Status: REG ER PHONE #: [phone] Date: 10/14/20192112 FAX #: Reason: liver failure EXAMS: CPT: [id number] XR CHEST 1 V 65029 Fluoro Time: DAP (Gy m2): Air Kerma (mGy): <Continued> Technologist: Farooq Lang RT(R)(CT) Trnscb Date/Time: 10/14/2019 (2129) [email or web address] Orig Print D/T: S: 10/14/2019 (2133) PAGE 2 Signed ReportCBC W/AUTO [id number] 21:25:00 Test Item Value Reference Range Interpretation [...] code = DIFF/SCN CRITERIA MDIFF) COMPREHENSIVE METABOLIC [id number] 21:22:00 Test Item Value Reference Range Interpretation [...] Unit/L 50-136 code = ALKP) CBC W/AUTO [id number] 13:44:00 Test Item Value Reference Range Interpretation [...] AUTO DIFFERENTIAL. UA RFLX MICR CULT IF [id number] 13:13:00 Test Item Value Reference Range Interpretation [...] URINE: CLEAN CATCHIndication for culture: Dysuria/FrequencyBASIC METABOLIC [id number] 13:12:00 Test Item Value Reference Range Interpretation [...] 8.5-10.1 N UA RFLX MICR CULT IF [id number] 13:12:00 Test Item Value Reference Range Interpretation [...] URINE: CLEAN CATCHIndication for culture: Dysuria/FrequencyCBC W/AUTO [id number] 12:59:00 Test Item Value Reference Range Interpretation [...] DIFF/SCN CRITERIA MDIFF) - CT HEAD/BRAIN W/O [id number] 12:55:00 Name: LUBNA LEACH [facility] : 1965 Age/S: 54 / M [address] Unit #: [id number] Loc: [place] [address] Phys: Nito Golden MD Acct: [id number] Dis Date: Status: REG ER PHONE #: [phone] Exam Date: 08/08/2019 1230 FAX #: Reason: headache EXAMS: CPT: [id number] CT HEAD/BRAIN W/O CONT 42941 Site ID: [id number] CT head TECHNIQUE: CT [...] CT. IMPRESSION: No acute intracranial abnormality at 2690 Reported and signed by: Danielle Verduzco M.D. CC: Nito Golden MD Technologist:Refugio Armenta, RT(R)(CT) CTDI: DLP: Trnscb Date/Time: 08/08/2019 (0814) [email or web address] Orig Print D/T: S: 08/08/2019 (5400) PAGE 1 Signed ReportTROPONIN I RAPID 2019-07-01 00:13:00 Test Item Value Reference Range Interpretation Comments TROPONIN I RAPID 0.00 ng/mL 0.00-0.08 N - The use o f serial (test code = sampling and te sting TROPIRAP) protocol is a recommended pra ctice- An elevated tro ponin level alone is often not sufficient for diagnosis of my ocardial infarction. HEPATIC FUNCTION [id number] 00:11:00 Test Item Value Reference Range Interpretation [...] code = 27 Unit/L 26-192 N CK) [id number] 00:11:00 Test Item Value Reference Range Interpretation Comments LIPASE (test code = LIP) 230 Unit/L 114-286 N NT PRO-BRAIN NATRIURETIC [id number] 00:11:00 Test Item Value Reference Range Interpretation Comments NT PRO-BRAIN NATRIURETIC PEPTI 137 PG/ML 0-100 H (test code = PROBNP) CHEMISTRY 8 [id number] 00:08:00 Test Item Value Reference Range Interpretation [...] 56-130 N code = GFRBED) CHEMISTRY 8 [id number] 00:08:00 Test Item Value Reference Range Interpretation [...] code = GFRBED) - XR CHEST 1 [id number] 00:03:00 Name: LUBNA LEACH [facility] : 1965 Age/S: 54 / M [address] Unit #: [id number] Loc: [place] [address] Phys: Jethro Rosenthal MD Acct: [id number] Dis Date: Status: REG ER PHONE #: [phone] Exam Date: 06/30/2019 0000 FAX #: Reason: SOB EXAMS: CPT: [id number] XR CHEST 1 V 96526 Fluoro Time: DAP (Gy m2): Air Kerma [...] PAGE 1 Signed Report Name: LUBNA LEACH [facility] : 1965 Age/S: 54 / M [address] [address] #: [id number] Loc: [place] [address] Phys: Jethro Rosenthal MD Acct: [id number] Dis Date: Status:REG ER PHONE #: [phone] Exam Date: 06/30/2019 0000 FAX #: Reason: SOB EXAMS: CPT: [id number] XR CHEST 1 V 50733 Fluoro Time: DAP (Gy m2): Air Kerma (mGy): <Continued> Technologist: CHILO Melgoza,RVS Trnscb Date/Time: 07/01/2019 (0003) [email or web address] Orig Print D/T: S: 07/01/2019 (0007) PAGE 2 Signed ReportF[facility] W/O [id number] 23:55:00 Test Item Value Reference Range Interpretation [...] 7.0-9.6 H MPV) - XR CHEST 1 [id number] 11:34:00 Name: LUBNA LEACH [facility] : 1965 Age/S: 54 / M [address] Unit #: [id number] Loc: [place] [address] Phys: Tejas Feliciano MD Acct: [id number] Dis Date: Status: REG ER PHONE #: [phone] Exam Date: 06/26/2019 1107 FAX #: Reason: sore throat, dyspnea EXAMS: CPT: [id number] XR CHEST 1 V 36942 Fluoro Time: DAP (Gy m2): Air Kerma [...] PAGE 1 Signed Report Name: LUBNA LEACH [facility] : 1965 Age/S: 54 / M [address] Unit #: [id number] Loc: [place] [address] Phys: Tejas Feliciano MD Acct: [id number] Dis Date: Status: REG ER PHONE #: [phone] Exam Date: 06/26/2019 1109 FAX #: Reason: sore throat, dyspnea EXAMS: CPT: [id number] XR CHEST 1 V 57032 Fluoro Time: DAP (Gy m2): Air Kerma (mGy): <Continued> Technologist: Refugio Armenta, RT(R)(CT) Trnscb Date/Time: 06/26/2019 (1134) [email or web address] Orig Print D/T: S: 06/26/2019 (1132) PAGE 2 Signed ReportCOMPREHENSIVE METABOLIC [id number] 11:27:00 Test Item Value Reference Range Interpretation [...] 50-136 H TOTAL (test code = ALKP) [id number] 11:27:00 Test Item Value Reference Range Interpretation Comments LIPASE (test code = LIP) 88 Unit/L 114-286 L CBC W/AUTO [id number] 11:09:00 Test Item Value Reference Range Interpretation [...] = NO DIFF/SCN CRITERIA MDIFF) ANTINUCLEAR ANTIBODIES [id number] 02:42:00 Test Item Value Reference Range Interpretation Comments SEAN DIRECT (test code Negative () = ANADIR) Neg ative <1:80 Borderline 1:8 0 Positive >1:80Performed At: [address] [id number] ivan Womack MD Ph:[phone] ACUTE HEPATITIS [id number] 02:42:00 Test Item Value Reference Range Interpretation Comments AB HEPATITIS A IGM NON REACTIVE NON REACT. Testing d one at (test code = INDEX [facility] [place] ONAL HAVMAB) [facility] [address] [place] [address] AB HEPATITIS B <3.1 mIU/mL Immunity>9.9 A Status of SURFACE (test code Immunity = HBSAB) Anti-H Bs Level --- I ncon sistent with Immunity 0.0 - 9.9Consistent w ith Immunity >9.9Performed A t: [facility] [place] [address] [place], [place] [id number] Kyle L MD Ph:[phone] ST PERFORMED AT [facility] [address] [address] [place], [place] [address] AG HEPATITIS B NON REACTIVE NonReactive Testing done at SURFACE (test code INDEX [facility] = HBSAG) [facility] [address] [place] [address] [place] [address] AB HEPATITIS B NON REACTIVE NON REACT. Testing done at CORE IGM (test INDEX CLEAR HOOKS RE GIONAL code = HBCMAB) [facility] [address] [place] [address], [place] [address] AB HEPATITIS C REACTIVE INDEX NON REACT. A Testing don e at (test code = CLE[facility] [place] ONAL HCVAB) [facility] [address] [place] [address]. [place] [address] AB [id number] 02:42:00 Test Item Value Reference Range Interpretation Comments AB <20.0 Units 0.0-20.0 ANTI-MITOCHONDRIAL Ne gative 0.0 - (test code = 20.0 MITOAB) Equi vocal 20.1 - 24.9 Positive >24.9Mitochondr ial (M2) Antibodies are found in 90-96% ofpatien ts with primary biliary cirrhosis.Perfo rmed At: [facility] [address] [id number] ra Ev GOMEZ Ph:[phone] ANTINUCLEAR ANTIBODIES [id number] 16:45:00 Test Item Value Reference Range Interpretation Comments SEAN DIRECT (test code Negative () = ANADIR) Neg ative <1:80 Borderline 1:8 0 Positive >1:80Performed At: [facility] [address] [id number] ivan Womack MD Ph:[phone] ACUTE HEPATITIS [id number] 16:45:00 Test Item Value Reference Range Interpretation Comments AB HEPATITIS A IGM NON REACTIVE NON REACT. Testing d one at (test code = INDEX CLEAR HOOKS [place] ONAL HAVMAB) [facility] [address] [place] [id number] AB HEPATITIS B <3.1 mIU/mL Immunity>9.9 A Status of SURFACE (test code Immunity = HBSAB) Anti-H Bs Level --- I ncon sistent with Immunity 0.0 - 9.9Consistent w ith Immunity >9.9Performed A t: [facility] [id number] [place], [place] [id number] Den Womack MD Ph:[phone] ST PERFORMED AT [facility] [phone] [place], [place] [address] AG HEPATITIS B NON REACTIVE NonReactive Testing done at SURFACE (test code INDEX CLEAR [place] [facility] = HBSAG) [facility] [address] [place] [address]. [place] [address] AB HEPATITIS B NON REACTIVE NON REACT. Testing done at CORE IGM (test INDEX CLEAR HOOKS RE GIONAL code = HBCMAB) [facility] [address] [place] [address]. [place], [place] [id number] AB HEPATITIS C REACTIVE INDEX NON REACT. A Testing don e at (test code = CLEAR HOOKS [place] ONAL HCVAB) [facility] [address] [place] [address]. [facility], [place] [id number] AB [id number] 16:45:00 Test Item Value Reference Range Interpretation Comments AB ANTI-MITOCHONDRIAL (test code = Units 0.0-20.0 MITOAB) [id number] 21:51:00 Test Item Value Reference Range Interpretation Comments GLUBED (test code = GLUBED) 168 mg/dL 70-110 H [id number] 15:58:00 Test Item Value Reference Range Interpretation Comments GLUBED (test code = GLUBED) 168 mg/dL 70-110 H [id number] 07:22:00 Test Item Value Reference Range Interpretation Comments GLUBED (test code = GLUBED) 113 mg/dL 70-110 H CBC W/AUTO [id number] 06:46:00 Test Item Value Reference Range Interpretation [...] BA#) 0.1 K/mm3 0.0-0.2 N COMPREHENSIVE METABOLIC [id number] 06:12:00 Test Item Value Reference Range Interpretation [...] 158 Units/L 50.0-136.0 H code = ALKP) [id number] 06:12:00 Test Item Value Reference Range Interpretation Comments MAGNESIUM (test code = MAG) 2.0 mg/dl 1.8-2.4 N [id number] 23:47:00 Test Item Value Reference Range Interpretation Comments GLUBED (test code = GLUBED) 179 mg/dL 70-110 H ANTINUCLEAR ANTIBODIES [id number] 16:47:00 Test Item Value Reference Range Interpretation Comments SEAN DIRECT (test code = ANADIR) NEGATIVE ACUTE HEPATITIS [id number] 16:47:00 Test Item Value Reference Range Interpretation Comments AB HEPATITIS A IGM NON REACTIVE NON REACT. Testing d one at (test code = INDEX CLEAR [place]OOKS [place] HAVMAB) [facility] [address] [place] [address], [place] [address] AB HEPATITIS B mIU/mL Immune >9.9 SURFACE (test code = HBSAB) AG HEPATITIS B NON REACTIVE NonReactive Testing done at SURFACE (test code INDEX [facility] [place] [facility] = HBSAG) [facility] [address] [place] [address], [place] [address] AB HEPATITIS B NON REACTIVE NON REACT. Testing done at CORE IGM (test INDEX CLEAR HOOKS RE GIONAL code = HBCMAB) [facility] [address] [place] [address]. [place] [address] AB HEPATITIS C REACTIVE INDEX NON REACT. A Testing don e at (test code = CLEAR HOOKS [place] O[place] HCVAB) [facility] [address] [place] [address]. [place] [address] AB [id number] 16:47:00 Test Item Value Reference Range Interpretation Comments AB ANTI-MITOCHONDRIAL (test code = Units 0.0-20.0 MITOAB) AB HEPATITIS A [id number] 16:41:00 Test Item Value Reference Range Interpretation Comments AB HEPATITIS A IGM (test NON REACTIVE INDEX NON REACT. code = HAVMAB) AG HEPATITIS B [id number] 16:41:00 Test Item Value Reference Range Interpretation Comments AG HEPATITIS B SURFACE NON REACTIVE INDEX NonReactive (test code = HBSAG) AB HEPATITIS B CORE [id number] 16:41:00 Test Item Value Reference Range Interpretation Comments AB HEPATITIS B CORE IGM NON REACTIVE INDEX NON REACT. (test code = HBCMAB) AB HEPATITIS [id number] 16:41:00 Test Item Value Reference Range Interpretation Comments AB HEPATITIS C (test code = REACTIVE INDEX NON REACT. A HCVAB) [id number] 16:40:00 Test Item Value Reference Range Interpretation Comments GLUBED (test code = GLUBED) 167 mg/dL 70-110 H [id number] 13:52:00 Test Item Value Reference Range Interpretation Comments GLUBED (test code = GLUBED) 139 mg/dL 70-110 H VITAMIN [id number] 13:03:00 Test Item Value Reference Range Interpretation Comments VITAMIN B12 (test code = VITB12) 697 pg/mL 193-986 N THYROID STIMULATING [id number] 13:03:00 Test Item Value Reference Range Interpretation Comments THYROID STIMULATING 1.83 IU/ML 0.47-5.01 N Result i s in HORMONE (test code = Interna tional TSH) Units/millilite r [id number] 12:40:00 Test Item Value Reference Range Interpretation Comments HGBA1C% (test code = HGBA1C%) 6.4 %A1C 4.8-6.0 H ESTIMATED AVERAGE GLUCOSE (test 137 MG/DL code = EAG) - US ABDOMEN [id number] 12:20:00 FAX: Shobha Beto Boland [phone] [place]: St: ADM FAX: Shobha ChongJoseLeslie [phone] Name: LUBNA LEACH [facility] : 1965 Age/S: 54/M [address] [facility] Unit #: [id number] Loc: JayneJACOBJayne [place], [place] Phys: Gael Garcia [address] Acct: Jayne [id number] Dis Date: Status: ADM IN PHONE #: [phone] Exam Date: 05/16/2019 1046 FAX #: [phone] Reason: Elevated LFT Report Has Been Amended EXAMS: CPT CODE: [id number] US ABDOMEN LTD 15719 Addendum - 05/16/2019 SIGNED 05/16/2019 ADDENDUM: [id number] US/USABDLTD Addendum: A typographical air occurred described [...] 1 Signed Report (CONTINUED) FAX: Beto Urias [phone] [place]: St: [facility] FAX: Gael Larsen [phone] Name: LUBNA LEACH [facility] : 1965 Age/S: 54/M [address] [facility] Unit #: [id number] Loc: [place] Phys: Gael Garcia [address] Acct: [id number] Dis Date: Status: ADM IN PHONE #: [phone] Exam Date: 05/16/2019 1046 FAX #: [phone] Reason: Elevated LFT Report Has Been Amended EXAMS: CPT CODE: [id number] US ABDOMEN LTD 64089 <Continued> Impression: No acute abnormality in the right upper quadrant. Liver size slightly enlarged with fatty changes. CT shows slightly nonsmooth margins suggesting the possibility of cirrhosis, as well. No ascites recognized, currently. Location: [facility] Electronically Signed by Stan Smith on 05/16/2019 at 1108 Reported and signed by: Torsten Smith M.D. CC: Beto Boland MD; Gael BARRAZA Technologist: CARLOS ALBERTO HU Trnksrd Date/Time/By: 05/16/2019 (5369) : By: Nathanael PAGE 2 Signed Report FAX: Beto Urias [phone] [place]: St: ADM FAX: Gael Larsen [phone] Name: LUBNA LEACH [facility] : 1965 Age/S: 54/M [address] [place] [address] Unit #: [id number] Loc: DIANA [place], [place] Phys: Gael Garcia [address] Acct: [id number] Dis Date: Status: ADM IN PHONE #: [phone] Exam Date: 05/16/2019 1046 FAX #: [phone] Reason: Elevated LFT Report Has Been Amended EXAMS: CPT CODE: [id number] US ABDOMEN LTD 71563 <Continued> Orig Print D/T: S: 05/16/2019 (6932) PAGE 3 Signed Report- US ABDOMEN [id number] 11:08:00 FAX: Beto Urias [phone] [place]: St: ADM FAX: Leslie Larsen [phone] Name: LUBNA LEACH [facility] : 1965 Age/S: 54/M [address] [facility] Unit #: [id number] Loc: DIANA [place], [place] Phys: Gael Garcia [address] Acct: [id number] Dis Date: Status: ADM IN PHONE #: [phone] Exam Date: 05/16/2019 1046 FAX #: [phone] Reason: Elevated LFT EXAMS: CPT CODE: [id number] US ABDOMEN LTD 40006 ULTRASOUND:- US ABDOMEN LTD History: Elevated liver [...] HU Trnscrd Date/Time/By: 05/16/2019 (1108) : By: [facility] PAGE 1 Signed Report FAX: Beto Urais [phone] [place]: St: ADM FAX: Gael Larsen [phone] Name: LUBNA LEACH [facility] : 1965 Age/S: 54/M [address] [facility] Unit #: [id number] Loc: DIANA [place], [place] Phys: Gael Garcia [address] Acct: [id number] Dis Date: Status: ADM IN PHONE #: [phone] Exam Date: 05/16/2019 1046 FAX #: [phone] Reason: Elevated LFT EXAMS: CPT CODE: [id number] US ABDOMEN LTD [address]1630 <Continued> Orig Print D/T: S: 05/16/2019 (1112) PAGE 2 Signed [id number] 07:18:00 Test Item Value Reference Range Interpretation Comments AMMONIA (test code = AMM) 9.5 MCMOL/L 11.0-32.0 L No sample received in the lab. Please collect if deemednecessary.Thank you!Lab DRUGS OF ABUSE SCREEN [id number] 06:29:00 Test Item Value Reference Interpretation Comments [...] [place]) concentrati on: 300 ng/mL CBC W/MANUAL [id number] 05:08:00 Test Item Value Reference Range Interpretation [...] MORPHOLOGY (test code NORMAL = PLTMORPH) PROTHROMBIN [id number] 01:10:00 Test Item Value Reference Range Interpretation Comments PROTHROMBIN TIME 12.6 SECONDS 9.9-12.8 N PATIENT (test code = PTP) INTERNATIONAL NORMAL 1.1 0.89-1.14 N THE INR IS TO BE USED RATIO (test code = ONLY FOR MONITORING INR) ORAL ANTICOAGULANTTH ERAPY. THE FOLLOWING A RE SUGGESTED RANGE S FROM [facility] CHEST PHYSICIANS:ANGELA CATION [...] 3 .5 Specimen comments: Clean CatchTHROMBOPLASTIN TIME [id number] 01:10:00 Test Item Value Reference Range Interpretation Comments THROMBOPLASTIN TIME 33.50 SECONDS 25.86-36.07 N [place] d Lab PARTIAL (test code = Therape utic Range - PTT) APTT of 55.8-85 .4 secondscorrelat es with plasma heparin concentration o f 0.2-0.4 u/mL Ne w range effective - Specimen comments: Clean CatchBASIC METABOLIC [id number] 01:09:00 Test Item Value Reference Range Interpretation [...] N Specimen comments: Clean CatchHEPATIC FUNCTION PANEL [id number] 01:09:00 Test Item Value Reference Range Interpretation [...] H code = ALKP) Specimen comments: Clean [id number] 01:09:00 Test Item Value Reference Range Interpretation Comments LIPASE (test code = 560 Units/L 65.0-230.0 H 2+ LIPEM IC SAMPLE. LIP) Specimen comments: Clean CatchB-TYPE NATRIURETIC [id number] 01:09:00 Test Item Value Reference Range Interpretation Comments B-TYPE NATRIURETIC PEPTIDE (test 33 PG/ML 5-100 N code = BNP) Specimen comments: Clean VinnyBASIC METABOLIC [id number] 00:59:00 Test Item Value Reference Range Interpretation [...] CA) 8.0 mg/dl 8.0-10.5 N Specimen comments: Pro Options MarketingHEPATIC FUNCTION PANEL [id number] 00:59:00 Test Item Value Reference Range Interpretation [...] H code = ALKP) Specimen comments: Clean [id number] 00:59:00 Test Item Value Reference Range Interpretation Comments LIPASE (test code = 560 Units/L 65.0-230.0 H 2+ LIPEM IC SAMPLE. LIP) Specimen comments: Clean CatchB-TYPE NATRIURETIC [id number] 00:59:00 Test Item Value Reference Range Interpretation Comments B-TYPE NATRIURETIC PEPTIDE (test code PG/ML 5-100 = BNP) Specimen comments: Clean CatchBASIC METABOLIC [id number] 00:54:00 Test Item Value Reference Range Interpretation [...] = CA) mg/dl 8.0-10.5 Specimen comments: Clean VinnyHEPATIC FUNCTION PANEL [id number] 00:54:00 Test Item Value Reference Range Interpretation [...] 50.0-136.0 code = ALKP) Specimen comments: Clean [id number] 00:54:00 Test Item Value Reference Range Interpretation Comments LIPASE (test code = LIP) Units/L 65.0-230.0 Specimen comments: Clean CatchB-TYPE NATRIURETIC [id number] 00:54:00 Test Item Value Reference Range Interpretation Comments B-TYPE NATRIURETIC PEPTIDE (test code PG/ML 5-100 = BNP) Specimen comments: Clean CatchURINALYSIS [id number] 00:52:00 Test Item Value Reference Range Interpretation [...] NONE BACU) Specimen comments: Clean CatchCBC W/MANUAL [id number] 00:46:00 Test Item Value Reference Range Interpretation [...] code = LYMPH) % 20-40 CBC W/MANUAL [id number] 00:46:00 Test Item Value Reference Range Interpretation [...] (test code = LYMPH) % 20-40 URINALYSIS [id number] 00:45:00 Test Item Value Reference Range Interpretation [...] comments: Clean Catch- CT ABD PELVIS W/O [id number] 23:43:00 FAX: Nathan Prince MD [place]: St: REG Name: LUBNA LEACH [facility] : 1965 Age/S: 54/M [address] [facility] Unit: [id number] Loc: [address] [place]: [place] [address] Acct: [id number] Dis Date: Status: REG ER PHONE #: [phone] Exam Date: 05/15/2019 2315 FAX #: [phone] Reason: ruq pain EXAMS: CPT CODE: [id number] CT ABD PELVIS W/O CONT 58398 CLINICAL HISTORY: Right upper quadrant abdominal pain,shortness [...] Signed Report (CONTINUED) FAX: Nathan Prince MD [place]: St: REG Name: LUBNA LEACH [facility] : 1965 Age/S: 54/M [address] [facility] Unit: [id number] Loc: [address] [place]: [place] [address] Acct: [id number] Dis Date: Status: REG ER PHONE #: [phone] Exam Date: 05/15/2019 2316 FAX #: [phone] Reason: ruq pain EXAMS: CPT CODE: [id number] CT ABD PELVIS W/O CONT 66631 <Continued> This exam was performed according to ourdepartmental dose-optimization program, which includes automated exposure control, adjustment of the mA and/or kV according to patient size and/or use of iterative reconstruction technique at 6786 Reported and signed by: Lennox Purvis M.D. CC: Nathan Prince MD Technologist: STANTON LIZ Trnscrd Dt/Tm: 05/15/2019 (7257) [email or web address] Orig Print D/T: S: 05/15/2019 (0024 PAGE 2 Signed Report- XR CHEST 2 [id number] 23:29:00 FAX: Nathan Prince MD [place]: St: REG Name: LUBNA LEACH [facility] : 1965 Age/S: 54/M [address] [place], [place] [email or web address] Unit#: [id number] Loc: [address] Phys: [place] [address] Acct: [id number] Dis Date: Status: REG ER PHONE #: [phone] Exam Date: 05/15/2019 2320 FAX #: [phone] Reason: sob EXAMS: CPT CODE: [id number] XR CHEST 2 V 10579 EXAM: - XR CHEST 2 V HISTORY: [...] MD Technologist: TOO JIMENEZ Trnscrd Date/Time/By: 05/15/2019 (5654) : By: [email or web address] PAGE 1 Signed Report FAX: Nathan Prince MD [place]: St: REG -- Name: LUBNA LEACH [facility] : 1965 Age/S: 54/M [address] [place] [address] [facility] Unit #: [id number] Loc: [address] [place]: [place] [address] Acct: [id number] Dis Date: Status: REG ER PHONE #: [phone] Exam Date: 05/15/2019 2320 FAX #: [phone] Reason: sob EXAMS: CPT CODE: [id number] XR CHEST 2 V 46829 <Continued> Orig Print D/T: S: 05/15/2019 (8587) PAGE 2 Signed CuweyiRVZIXQWTZV6024-59-51 09:04:00Negative *NA*(05/15/19 4:04 AM) [facility] [id number] 14:48:000.96[facility]annIMMUNOLOGY 2019-05-14 14:48:00Negative *NA*(05/14/19 9:48 AM)[facility]annIMMUNOLOGY 2019-05-14 14:48:00Negative *NA*(05/14/19 9:48 AM)[facility]annIMMUNOLOGY 2019-05-14 14:48:00Negative *NA*(05/14/19 9:48 AM)[facility]annIMMUNOLOGY 2019-05-14 14:48:00Positive *ABN*(05/14/19 9:48 AM)[facility]annTUMOR MARKERS 2019-05-14 14:48:0048.3[facility]annCHEM [id number] 09:25:002.7[facility]annCHEM AZPYX9119-70-27 09:25:002.0[facility]annCHEM MOICS2253-67-41 09:25:0092[facility]annCHEM JGDWV9671-17-70 09:25:001.8[facility]annCHEM ZIDMA9770-53-55 09:25:0085[facility]annCHEM OZUZS9662-56-91 09:25:49848 [facility]annCHE[facility] IDEUB0456-19-80 09:25:000.93[facility]annCHEM PANEL 2019-05-14 09:25:0015[facility]annCHEM ZGYBZ5063-65-07 09:25:0086[facility]annCHEM ONKZB7345-50-83 09:25:64145Calmtuln HermannCHEM JXKZB1244-32-09 09:25:002.8[facility]annCHEM JCEPI2156-88-47 09:25:0019[facility]annCHE[facility] WKRIB2506-70-94 09:25:006.5[facility]annCHE[facility] YJENG3876-41-95 09:25:008.1 [facility]CHE[facility] DNSIQ2721-52-36 09:25:004.2[facility]annCHEM PANEL 2019-05-14 09:25:32053Psdutibz HermannCHEM RPZED1586-18-56 09:25:15009Jpjhuemt HermannCHEM SRKTK9962-00-11 09:25:003.7[facility]annCHEM TSVJE7864-90-50 09:25:00 Test Item Value Reference Range Interpretation Comments A/G Ratio (test code = A/G Ratio) 0.8 1 0.7-1.6 [facility] [id number] 09:25:00 Test Item Value Reference Range Interpretation Comments B/C Ratio (test code = B/C Ratio) 16 1 6-25 [facility]annCHE[facility] HVDCZ3407-89-63 09:25:0014.2[facility] HermannHEMATOLOGY 2019-05-14 09:25:0010.4[facility] KwmektpACZQPXQAQR2449-64-18 09:25:005.83[facility] UfikuzoAAAITQUGFH5414-98-65 09:25:0035.1[facility] CzvmcwiVJRTLYVOTT8088-55-53 09:25:0090.5[facility] ZxliyvqUUNTFBUTXR8885-51-51 09:25:0018.5[facility] WWSRJNGVAI5460-65-15 09:25:0052.7[facility] LxlacznLOSWAGJHYH6979-93-44 09:25:00 5.1[facility] PmrbwviYTMGRJOAUK1556-40-56 09:25:0065[facility]annHEMATOLOGY 2019-05-14 09:25:0013.2[facility] UhztdpzCOAACENDYK9605-01-88 09:25:00 Test Item Value Reference Range Interpretation Comments MCH (test code = MCH) 31.8 pg 27.0-31.0 [facility] LgwewviPRJWJJOLRR0320-74-45 09:25:0012.5[facility]annHEMATOLOGY 2019-05-14 09:25:000.4[facility] UegtstmDHRICDXMHI1955-04-92 09:25:000.6[facility] CiaafpqUNYJGFASZE4643-49-05 09:25:000.6[facility] FfylezuFHIRGCWSTQ3844-85-36 09:25:004.0[facility] AqvlfvvAAQBYXVHSD0526-52-94 09:25:008.3[facility] HIYLBEETWI8580-63-84 09:25:0078.6[facility]annURINE AND BHXHD0496-64-01 02:45:003[facility] AND BRTKB5050-07-67 02:45:002[facility] URINE AND GXDPJ8848-49-90 02:45:00Negative (05/13/19 9:45 PM)[facility] CVZVJ9943-14-16 02:45:00Not Indicated *NA*(05/13/19 9:45 PM)[facility] URINE AND IKAPV5880-10-74 02:45:00Negative *NA*(05/13/19 9:45 PM)[facility] URINE AND EFDVE1026-79-05 02:45:00Negative (05/13/19 9:45 PM)[facility] IWTNP3216-92-28 02:45:00Negative (05/13/19 9:45 PM)[facility] CDEVQ9693-80-39 02:45:00 Test Item Value Reference Range Interpretation Comments UA pH (test code = UA pH) 5.0 1 5.0-8.0 [facility] EQGZL0831-23-17 02:45:004.0[facility] AND KGKNU0834-46-52 02:45:00Clear (05/13/19 9:45 PM)[facility] STOOL 2019-05-14 02:45:00Amber *ABN*(05/13/19 9:45 PM)[facility] STOOL 2019-05-14 02:45:00 Test Item Value Reference Range Interpretation Comments UA Spec Grav (test code = UA Spec 1.016 1 Grav) [facility]annCHEM IESEQ3535-99-77 02:42:001.7[facility] HermannDRUG SCREEN 2019-05-13 10:10:00Negative *NA*(05/13/19 5:10 [...] HermannURINE AND STOOL 2019-05-13 10:10:001[facility] AND MFTQX5244-24-78 10:10:002[facility] AND DOUZY1314-06-95 10:10:00Negative *NA*(05/13/19 5:10 AM)[facility] UMSHI1995-41-24 10:10:00Negative (05/13/19 5:10 AM)[facility] IVDQS4235-18-08 10:10:004.0[facility] STOOL 2019-05-13 10:10:00 Test Item Value Reference Range Interpretation Comments UA Spec Grav (test code = UA Spec 1.048 1 Grav) [facility] UPTUG0142-26-91 10:10:00 Test Item Value Reference Range Interpretation Comments UA pH (test code = UA pH) 5.0 1 5.0-8.0 [facility] BBHYG5768-00-91 10:10:00Amber *ABN*(05/13/19 5:10 AM) [facility] JNMPG2048-98-12 10:10:00Clear (05/13/19 5:10 AM)[facility]annCHEM EYWWG7180-65-07 03:59:0096[facility]annCHEM PTDZG5454-65-74 03:59:000.90[facility]annCHEM STXIZ1741-37-65 03:59:19584Mzfmaunb HermannCHEM AFKSG4880-30-23 03:59:0013[facility]annCHEM UUFNF7487-13-69 03:59:008.8 [facility]annCHEM FNHCC6260-99-69 03:59:65698Jaoqjdrh HermannCHEM PANEL 2019-05-13 03:59:004.1[facility]annCHEM VVGWZ9536-25-09 03:59:0099[facility]annCHEM KFBOG7866-57-29 03:59:0021[facility] HermannCHEM AOIRI3520-32-57 03:59:0014.1[facility] HermannCARDIAC YKBLUCM7241-22-47 22:33:00<0.02[facility] HermannCHEM HCLYV4047-42-37 22:33:71698Tiulfzwj HermannCHEM ZKUEA7243-38-25 22:33:18336Uudyfubi HermannCHEM XPWAN6599-28-49 22:33:0080[facility] HermannCHEM HJSCT5093-06-34 22:33:001.04[facility]annCHEM VYSHU5532-19-24 22:33:004.2 [facility]annCHEM ORZAB9113-32-93 22:33:66226Fmcknypi HermannCHEM PANEL 2019-05-12 22:33:008.8[facility] HermannCHEM MIXVC4942-44-10 22:33:0021[facility] HermannCHEM JALQM4745-23-88 22:33:0099[facility] HermannCHEM WLZGE9295-99-40 22:33:21940Myuvdmap HermannCHEM HUASV7470-47-86 22:33:003.3[facility]annCHEM BSEHA0257-40-65 22:33:37083Upulwucm HermannCHEM YOPXQ5183-13-90 22:33:0013 [facility]annCHE[facility] MJPLR5067-41-88 22:33:001.3[facility]annCHEM PANEL 2019-05-12 22:33:007.7[facility]annCHEM KXTXE7477-81-06 22:33:0094[facility]annCHEM GWSGL4004-38-04 22:33:0015.2[facility]annCHEM VPJUA8623-58-77 22:33:00 Test Item Value Reference Range Interpretation Comments B/C Ratio (test code = B/C Ratio) 12 1 6-25 [facility] IXGGP1171-40-16 22:33:004.4[facility]annCHEM PANEL 2019-05-12 22:33:00 Test Item Value Reference Range Interpretation Comments A/G Ratio (test code = A/G Ratio) 0.8 1 0.7-1.6 [facility] CenterRoofpxzMWAAZLMCHJ3108-16-48 22:33:00 Test Item Value Reference Range Interpretation Comments INR (test code = INR) 1.03 1 0.85-1.17 [facility] CenterUfoytjxEWIUOEDZJS5893-27-70 22:33:00 Test Item Value Reference Range Interpretation Comments PT (test code = PT) 13.3 s 12.0-14.7 [facility] CenterFapybqyMOFKATZCGJ4926-10-40 22:33:00 Test Item Value Reference Range Interpretation Comments PTT (test code = PTT) 39.2 s 22.9-35.8 [facility] CenterAdbfwxcCBRZZJUMXO4066-37-89 22:33:0013.4[facility]annHEMATOLOGY 2019-05-12 22:33:0098[facility] XixkfjtAOOVSKOUIV8409-52-22 22:33:009.3[facility] TcneqeaYOZTBQSVEU8681-09-47 22:33:0091.0[facility] BlywgyvKASUVKECMT5298-33-29 22:33:00 Test Item Value Reference Range Interpretation Comments MCH (test code = MCH) 32.1 pg 27.0-31.0 [facility] CenterDhugwfjJVHQOBSBCE4407-69-00 22:33:0035.3[facility]annHEMATOLOGY 2019-05-12 22:33:009.0[facility] TsbnupdJUQNAWWEPG2793-93-49 22:33:006.03[facility] CibuawuQAZFMIGKZU6414-13-25 22:33:0019.4[facility] QnybjbqPQVYCNWUAG9310-10-34 22:33:0054.8[facility] SjayjzqMBRUWEJPCO7899-32-36 22:33:006.8[facility] JWJBYMGNDL3555-18-70 22:33:008.0[facility] JmdofigJTXVWYIOEX5619-87-33 22:33:000.4 [facility] XqdkeseOLKYOHZZSY9444-38-38 22:33:003.4[facility] HermannHEMATOLOGY 2019-05-12 22:33:000.6[facility] ZjobtdxGXTFAQWPVM9336-58-50 22:33:000.3[facility] ZexkdzfWTGPOKUDYI7110-39-21 22:33:0089.4[facility] RmvpecgAEUDVKTMDM6321-01-79 22:33:00<2 (05/12/19 5:33 PM)[facility] TiyzjlwFCREQXKWPA4252-50-94 22:33:00 <0.003[facility] LwvvesxLXGGHHJDDT6166-41-88 22:33:00<3[facility] WLTSNAVMWP8600-65-41 22:33:00<1.7[facility]
[2020-06-11 09:35] LABS: Absolute Lymphocytes (CBC) 1.8 K/uL (0.7-4.9); Basophils % 1.4 % (0-1.3); Hematocrit 44.4 % (39.6-49.0); Lymphocytes % 25.7 % (15.3-44.8); MPV 9.5 fL (7.6-11.3); Protime INR 1.03; RBC Red Blood Cell Count 4.65 M/uL (4.33-5.43)
[2020-06-11] MEDS ORDERED: NA CHLORIDE 0.9% 1,000 ML ONE (09:36)
--- NOTE | 2020-06-11 09:42 | RAD REPORT ---
EXAM DESCRIPTION: RAD - Chest Single View - 06/11/2020 9:36 am CLINICAL HISTORY: Near syncope Chest pain. COMPARISON: Chest Single View dated 05/01/2020 FINDINGS: Portable technique limits examination quality. The lungs are grossly clear. The heart is normal in size. No displaced fractures. IMPRESSION: No acute intrathoracic process suspected.
[2020-06-11 09:52] LABS: ALT/SGPT 132 U/L (12-78); Albumin 3.1 g/dL (3.4-5.0); Alkaline Phosphatase 159 U/L (45-117); BUN Blood Urea Nitrogen 10 mg/dL (7-18); Bicarbonate 24 mmol/L (21-32); Bilirubin Direct 0.4 mg/dL (0-0.2); Bilirubin Total 0.7 mg/dL (0.2-1.0); Glucose Level 182 mg/dL (74-106); NT PRO-BNP 102 pg/mL (<125); Protein, Total 6.9 g/dL (6.4-8.2); Sodium Level 140 mmol/L (136-145); Troponin (Emerg Dept Use Only) < 0.02 ng/mL (0.0-0.045)
[2020-06-11 10:07] LABS: AST/SGOT 117 U/L (15-37); Magnesium 1.9 mg/dL (1.8-2.4); Potassium 3.5 mmol/L (3.5-5.1)
[2020-06-11 11:16] LABS: Urine Blood NEGATIVE (NEG); Urine Glucose TRACE (NEG); Urine Protein NEGATIVE (NEG); Urine Specific Gravity 1.015 (1.005-1.030)
[2020-06-11 11:27] LABS: Barbiturates NEGATIVE (NEGATIVE); Benzodiazepines NEGATIVE (NEGATIVE); Cocaine NEGATIVE (NEGATIVE); METHAMPHETAM NEGATIVE (NEGATIVE); Methadone NEGATIVE (NEGATIVE); Opiates NEGATIVE (NEGATIVE); Phencyclidine NEGATIVE (NEGATIVE); THC Cannibis POSITIVE (NEGATIVE)
--- NOTE | 2020-06-11 11:49 | EDPHYS ---
Physician Documentation [facility] Name: Huber Augustine Age: 55 yrs Sex: Male : 1965 Arrival Date: 06/11/2020 Time: 09:07 Bed 16 Private MD: ED Physician Huber Greco HPI: 06/11 09:15 This 55 yrs old Male presents to ER via EMS with complaints of Dizziness. pm1 09:15 The patient presents with feeling faint. Onset: The symptoms/episode began/occurred pm1 this morning, after smoking marijuana. Context: occurred at home, occurred while the patient was changing position, getting up. Modifying factors: The symptoms are alleviated by improved with PO intake, a brownie, the symptoms are aggravated by nothing. Associated signs and symptoms: Pertinent positives: near-syncope, Pertinent negatives: abdominal pain, chest pain, numbness, palpitations, shortness of breath, tingling. Severity of symptoms: in the emergency department the symptoms have improved. The patient has been recently seen at the [facility] Emergency Department, last week, for unrelated complaints, laceration to left rosario that was repaired with yary. Patient used marijuana this AM. After using marijuana, presented with complaint of dizziness and near syncope. No chest pain or shortness of breath present. On EMS arrival, he was given a brownie to eat and his symptoms improved. Historical: - Allergies: 09:09 No Known Allergies; bp - Home Meds: 09:09 gabapentin Oral [Active]; lisinopril Oral [Active]; Lyrica Oral [Active]; bp - PMHx: 09:09 Diabetes - NIDDM; Hypertension; liver cancer; neuropathy; bp - Immunization history:: Adult Immunizations up to date. - Social history:: Smoking status: Patient reports the use of cigarette tobacco products, unknown amount. ROS: 09:15 Constitutional: Negative for fever, chills, and weight loss, Eyes: Negative for injury, pm1 pain, redness, and discharge, ENT: Negative for injury, pain, and discharge, Neck: Negative for injury, pain, and swelling, Cardiovascular: Negative for chest pain, palpitations, and edema, Respiratory: Negative for shortness of breath, cough, wheezing, and pleuritic chest pain, Abdomen/GI: Negative for abdominal pain, nausea, vomiting, diarrhea, and constipation, Back: Negative for injury and pain, MS/Extremity: Negative for injury and deformity, Skin: Negative for injury, rash, and discoloration. 09:15 Neuro: Positive for dizziness, near syncope, Negative for numbness, tingling, weakness. Exam: 09:15 Constitutional: This is a well developed, well nourished patient who is awake, alert, pm1 and in no acute distress. Head/Face: Normocephalic, atraumatic. Neck: Trachea midline, no thyromegaly or masses palpated, and no cervical lymphadenopathy. Supple, full range of motion without nuchal rigidity, or vertebral point tenderness. No Meningismus. Chest/axilla: Normal chest wall appearance and motion. Nontender with no deformity. No lesions are appreciated. 09:15 Abdomen/GI: Soft, non-tender, with normal bowel sounds. No distension or tympany. No guarding or rebound. No evidence of tenderness throughout. Back: No spinal tenderness. No costovertebral tenderness. Full range of motion. Skin: Warm, dry with normal turgor. Normal color with no rashes, no lesions, and no evidence of cellulitis. MS/ Extremity: Pulses equal, no cyanosis. Neurovascular intact. Full, normal range of motion. 09:15 Cardiovascular: Exam negative for acute changes, Rate: normal, Rhythm: regular, Pulses: no pulse deficits are appreciated. 09:15 Respiratory: Exam negative for acute changes, respiratory distress, shortness of breath. 09:15 Neuro: Exam negative for acute changes, Orientation: is normal, Motor: is normal, moves all fours. Vital Signs: 09:07 BP 116 / 91; Pulse 60; Resp 20; Temp 97.7; Pulse Ox 95% ; bp 09:17 BP 164 / 83; Pulse 58; Resp 17; Pulse Ox 97% ; bp 09:30 BP 106 / 69 Supine; Pulse 60; Resp 17; Pulse Ox 97% ; bp 09:35 BP 99 / 56 Standing; Pulse 64; Resp 16; Pulse Ox 98% ; bp 10:13 BP 101 / 51; Pulse 60; Resp 14; Pulse Ox 98% ; bp 11:18 BP 93 / 51; Pulse 55; Resp 17; Pulse Ox 99% ; bp 12:23 BP 108 / 82; Pulse 56; Resp 16; Temp 97.8; Pulse Ox 98% ; bp MDM: 09:11 Patient medically screened. pm1 11:47 Data reviewed: vital signs. Data interpreted: Pulse oximetry: on room air is 99 %. pm1 Interpretation: normal. Counseling: I had a detailed discussion with the patient and/or guardian regarding: the historical points, exam findings, and any diagnostic results supporting the discharge/admit diagnosis, lab results, radiology results, the need for outpatient follow up, to return to the emergency department if symptoms worsen or persist or if there are any questions or concerns that arise at home. 06/11 09:13 Order name: Basic Metabolic Panel pm1 06/11 09:13 Order name: CBC with Diff pm1 06/11 09:13 Order name: LFT's pm1 06/11 09:13 Order name: Magnesium pm1 06/11 09:13 Order name: NT PRO-BNP pm1 06/11 09:13 Order name: PT-INR pm1 06/11 09:13 Order name: Troponin (emerg Dept Use Only) pm1 06/11 09:13 Order name: UDS pm1 06/11 09:13 Order name: ETOH Level pm1 06/11 09:40 Order name: CBC with Automated Diff; Complete Time: 09:41 EDMS 06/11 09:40 Order name: Protime (+INR); Complete Time: 09:41 EDMS 06/11 09:51 Order name: Alcohol Serum/Plasma; Complete Time: 10:17 EDMS 06/11 10:07 Order name: Basic Metabolic Panel; Complete Time: 10:17 EDMS 06/11 10:07 Order name: Liver (Hepatic) Function; Complete Time: 10:17 EDMS 06/11 09:13 Order name: XRAY Chest (1 view) pm1 06/11 09:13 Order name: EKG; Complete Time: 09:14 pm1 06/11 09:13 Order name: Cardiac monitoring; Complete Time: 09:16 pm1 06/11 09:13 Order name: EKG - Nurse/Tech; Complete Time: 09:50 pm1 06/11 09:13 Order name: IV Saline Lock; Complete Time: 09:50 pm1 06/11 09:13 Order name: Labs collected and sent; Complete Time: 09:50 pm1 06/11 09:13 Order name: O2 Per Protocol; Complete Time: 09:16 pm1 06/11 09:13 Order name: O2 Sat Monitoring; Complete Time: 09:16 pm1 06/11 09:43 Order name: RAD; Complete Time: 10:17 EDMS 06/11 10:07 Order name: Troponin (Emerg Dept Use Only); Complete Time: 10:17 EDMS 06/11 10:07 Order name: NT PRO-BNP; Complete Time: 10:17 EDMS 06/11 10:07 Order name: Magnesium; Complete Time: 10:17 EDMS 06/11 11:03 Order name: Urine Dipstick--Ancillary (enter results) eb 06/11 11:16 Order name: Urine Dipstick-Ancillary; Complete Time: 11:44 EDMS 06/11 11:27 Order name: Urine Drug Screen; Complete Time: 11:44 EDMS 06/11 09:13 Order name: Orthostatic Blood Pressure; Complete Time: 10:58 pm1 06/11 09:13 Order name: Urine Dipstick-Ancillary (obtain specimen); Complete Time: 10:58 pm1 Administered Medications: 09:30 Drug: NS 0.9% 1000 ml Route: IV; Rate: 1000 ml; Site: right forearm; bp 11:18 Follow up: IV Status: Completed infusion; IV Intake: 1000ml bp Disposition: 16:23 Co-signature as Attending Physician, Huber Greco MD I agree with the assessment and kdr plan of care. Disposition: 06/11/20 11:48 Discharged to Home. Impression: Dizziness and giddiness, Cannabis abuse. - Condition is Stable. - Discharge Instructions: Dizziness, Cannabis Use Disorder, Near-Syncope. - Medication Reconciliation Form, Thank You Letter, Antibiotic Education, Prescription Opioid Use, Work release form form. - Follow up: Emergency Department; When: As needed; Reason: Worsening of condition. Follow up: Private Physician; When: 2 - 3 days; Reason: Recheck today's complaints, Continuance of care, Re-evaluation by your physician. - Problem is new. - Symptoms have improved. Signatures: Dispatcher [employer] Huber Vincent MD MD kdr Marinas, Patrick, ACCOUNTING MACHINE SERVICER ACCOUNTING MACHINE SERVICER pm1 Richard Rodgers, RN RN bp Corrections: (The following items were deleted from the chart) 12:29 11:48 06/11/2020 11:48 Discharged to Home. Impression: Dizziness and giddinessCannabis bp abuse. Condition is Stable. Forms are Medication Reconciliation Form, Thank You Letter, Antibiotic Education, Prescription Opioid Use. Follow up: Emergency Department; When: As needed; Reason: Worsening of condition. Follow up: Private Physician; When: 2 - 3 days; Reason: Recheck today's complaints, Continuance of care, Re-evaluation by your physician. Problem is new. Symptoms have improved. pm1
--- NOTE | 2020-06-11 11:49 | ER ---
Nurse's Notes [facility] Name: Huber Augustine Age: 55 yrs Sex: Male : 1965 Arrival Date: 06/11/2020 Time: 09:07 Bed 16 Private MD: Diagnosis: Cannabis abuse;Dizziness and giddiness Presentation: 06/11 09:07 Chief complaint: EMS states: DIZZINESS AND NEAR-SYNCOPE AT HOME. Coronavirus screen: At bp this time, the client does not indicate any symptoms associated with coronavirus-19. Ebola Screen: No symptoms or risks identified at this time. Initial Sepsis Screen: Does the patient meet any 2 criteria? No. Patient's initial sepsis screen is negative. Does the patient have a suspected source of infection? No. Patient's initial sepsis screen is negative. Risk Assessment: Do you want to hurt yourself or someone else? Patient reports no desire to harm self or others. Onset of symptoms was June 11, 2020 at 07:00. Care prior to arrival: IV initiated. 18 GA, in the right forearm, Glucose check: 147. 09:07 Method Of Arrival: EMS: [facility] bp 09:07 Acuity: ROSALEE 3 bp Triage Assessment: 09:09 General: Appears in no apparent distress. comfortable, Behavior is cooperative, bp appropriate for age, anxious. Pain: Denies pain. EENT: No deficits noted. Neuro: Reports dizziness. Cardiovascular: Rhythm is sinus rhythm. Respiratory: No deficits noted. GI: No signs and/or symptoms were reported involving the gastrointestinal system. : No signs and/or symptoms were reported regarding the genitourinary system. Derm: No deficits noted. Musculoskeletal: No deficits noted. Historical: - Allergies: 09:09 No Known Allergies; bp - Home Meds: 09:09 gabapentin Oral [Active]; lisinopril Oral [Active]; Lyrica Oral [Active]; bp - PMHx: 09:09 Diabetes - NIDDM; Hypertension; liver cancer; neuropathy; bp - Immunization history:: Adult Immunizations up to date. - Social history:: Smoking status: Patient reports the use of cigarette tobacco products, unknown amount. Screenin:10 Abuse screen: Denies threats or abuse. Denies injuries from another. Nutritional bp screening: No deficits noted. Tuberculosis screening: No symptoms or risk factors identified. Fall Risk None identified. Assessment: 09:10 General: SEE TRIAGE NOTE. bp 10:13 Reassessment: UOP PENDING. PT RESTING QUIETLY, NO ACUTE S/S. bp 11:20 Reassessment: PT SLEEPING, NO ACUTE S/S AT THIS TIME. ALL ORDERS IN PROCESS. bp 11:45 Reassessment: D/C ON HOLD FOR IVF COMPLETION. bp 12:23 Reassessment: PT D/C HOME AMBULATORY, DX WITH DIZZINESS. bp Vital Signs: 09:07 BP 116 / 91; Pulse 60; Resp 20; Temp 97.7; Pulse Ox 95% ; bp 09:17 BP 164 / 83; Pulse 58; Resp 17; Pulse Ox 97% ; bp 09:30 BP 106 / 69 Supine; Pulse 60; Resp 17; Pulse Ox 97% ; bp 09:35 BP 99 / 56 Standing; Pulse 64; Resp 16; Pulse Ox 98% ; bp 10:13 BP 101 / 51; Pulse 60; Resp 14; Pulse Ox 98% ; bp 11:18 BP 93 / 51; Pulse 55; Resp 17; Pulse Ox 99% ; bp 12:23 BP 108 / 82; Pulse 56; Resp 16; Temp 97.8; Pulse Ox 98% ; bp ED Course: 09:07 Patient arrived in ED. bp 09:08 Triage completed. bp 09:09 Arm band placed on. bp 09:10 Devon Stanton NP is PHCP. pm1 09:10 Huber Greco MD is Attending Physician. pm1 09:10 Patient has correct armband on for positive identification. Bed in low position. Call bp light in reach. Side rails up X2. 09:10 Maintain EMS IV. Dressing intact. Good blood return noted. Site clean \T\ dry. Gauge \T\ bp site: 18 GAUGE R FA. 09:16 Richard Rodgers, RN is Primary Nurse. bp 11:17 UDS Sent. bp 11:18 Basic Metabolic Panel Sent. bp 11:18 CBC with Diff Sent. bp 11:18 LFT's Sent. bp 11:18 Magnesium Sent. bp 11:18 NT PRO-BNP Sent. bp 11:19 Troponin (emerg Dept Use Only) Sent. bp 11:19 PT-INR Sent. bp 11:19 ETOH Level Sent. bp 12:24 No provider procedures requiring assistance completed. IV discontinued, intact, bp bleeding controlled, No redness/swelling at site. Pressure dressing applied. Administered Medications: 09:30 Drug: NS 0.9% 1000 ml Route: IV; Rate: 1000 ml; Site: right forearm; bp 11:18 Follow up: IV Status: Completed infusion; IV Intake: 1000ml bp Intake: 11:18 IV: 1000ml; Total: 1000ml. bp Outcome: 11:48 Discharge ordered by MD. pm1 12:24 Discharged to home ambulatory. bp 12:24 Condition: stable 12:24 Discharge instructions given to patient, Instructed on discharge instructions, follow up and referral plans. Demonstrated understanding of instructions, follow-up care. 12:29 Patient left the ED. bp Signatures: Devon Stanton NP VOCATIONAL REHABILITATION ADMINISTRATOR pm1 Richard Rodgers, RN RN bp
[2020-06-11 12:47] VITALS: BP 108/82; TEMP 97.8; O2SAT 98
--- NOTE | 2020-06-13 07:52 | EKG ---
Test Date: 2020-06-11 Test Time: 09:41:51 Slip Bridge Operator: BP MEASUREMENT RESULTS: Intervals: Rate: 53 ME: 144 QRSD: 84 QT: 476 QTc: 446 [place]: P: 73 ME: 144 QRS: 49 T: 60 INTERPRETIVE STATEMENTS: Sinus bradycardia Otherwise normal ECG No previous ECG available for comparison Electronically Signed On 06-13-20 07:49:46 CDT by Eriberto Triplett
== END 2020-06-11 12:29 | disposition home or self-care (01) ==
LOC: ER 09:04
DX: F12.10 Cannabis abuse, uncomplicated (principal); I10 Essential (primary) hypertension; E11.9 Type 2 diabetes mellitus without complications; Z85.05 Personal history of malignant neoplasm of liver
CPT/HCPCS: 96361; 93005; 85025; 80048; 36415; 80320; 83735; 85610; 80076; 80307 ×8; 81003; 84484; 83880; 71045; 96360; 99284; J7030

== ENCOUNTER 2020-10-01 | Emergency (ER) | payer OTHER ==
--- OUTSIDE RECORDS SUMMARY | 2020-10-01 12:29 | XMS REPORT | Continuity of Care Document ---
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 [facility] VOMITING, 19 Perfecto DEHYDRATION Diabetes 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 mellitus [place] (disorder) Hypertensive 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 disorder, [place] systemic arterial (disorder) Vomiting, 05/17/2019 [place] unspecified VOMITING, Active [facility] UNSPECIFIED Idanha DEHYDRATION Active [facility] Medications Medication Details Route Status Patient Ordering [...] kg, Priority: STAT, Start date: 11/11/19 19:26:00 [employer] SALES REPRESENTATIVE, Stop date: 11/11/19 19:26:00 GRAPHIC ART SALES REPRESENTATIVE Zofran ODT 4 mg, Route: Inactive PO, Drug form: 2019 TABDIS, ONCE, Dosing Weight 84.091, kg, Priority: STAT, Start date: 11/11/19 18:43:00 GRAPH[employer] SALES REPRESENTATIVE, Stop date: 11/11/19 18:43:00 GRAPHIC ART SALES REPRESENTATIVE Dexamethasone 10 mg, 2.5 mL, Inactive Route: IM, [facility] form: INJ, ONCE, Dosing Weight 84.091, kg, Priority: STAT, Start date: 11/11/19 18:42:00 GRAPHIC ART SALES REPRESENTATIVE, Stop date: 11/11/19 18:42:00 GRAPHIC ART SALES REPRESENTATIVE, 0 Metformin Notes: (Same Inactive hydrochloride as: [...] Weight 84.091 kg, Start date: 10/19/19 10:48:00 GRAPHIC [employer] SALES REPRESENTATIVE, Stop date: 10/19/19 10:48:00 GRAPHIC ART SALES REPRESENTATIVE, 0 Lisinopril Notes: (Same Inactive as: Prinivil, 2019 [place] Zestril) cefdinir 300 MG Notes: (Same Inactive Oral Capsule As: Omnicef) 2019 [place] cefdinir 300 MG 300 mg = 1 cap, Active Oral Capsule PO, Q12H, X 5 2019 Maryuri and day, # 10 cap, 0 Refill(s), Pharmacy: [facility] [id number] Rocephin + Notes: (Same No [...] (Same No Longer as: Zofran) Active 2019 [place] MEDICATION WASTE Product Size: 4 mg Product Wasted: ___ mg Bisacodyl Notes: (Same No Longer As: Dulcolax, Active 2019 [place] Bisco-Lax) Morphine 2 mg, 1 mL, No Longer Route: IVP, Active 2019 [place] Drug form: SOLN, Q4H, Dosing Weight 72.727, kg, PRN Pain Score 7-10, Start date: 05/13/19 1:04:00 CDT, Duration: 30 day, Stop date: 06/12/19 1:03:00 CDT, 0 Sodium Chloride 1,000 mL, Rate: Inactive 0.9% IV 1,000 100 ml/hr, [facility] mL + M.V.I.-12 Infuse over: [...] No Longer 0.9% as: BD Active 2019 [place] Posiflush) Saline Flush Notes: (Same No Longer 0.9% as: BD Active 2019 [place] Posiflush) Sodium Chloride 1,000 mL, 1000 Inactive 0.9% (Bolus) IV ml/hr, Infuse 2019 Nader gibson Over: 1 hr, Route: IV, 1,000, Drug form: INJ, ONCE, Priority: STAT, Dosing Weight 72.727 kg, Start date: 05/12/19 17:01:00 CDT, Stop date: 05/12/19 17:01:00 CDT, 0 Ondansetron Notes: (Same Inactive as: Zofran) 2018 [place] MEDICATION WASTE Product Size: 4 mg Product Wasted: ___ mg Famotidine Notes: (Same Inactive as: Pepcid) Can 2019 [place] be dilute in 5-10cc NS IVP: Slow IV push over at least 2 minutes. Morphine Notes: (Same Inactive as:MORPhine 2019 [place] Sulfate) Ativan Notes: (Same Inactive as: Ativan) 2018 [place] Allergies, Adverse Reactions, Alerts No Known Medication [...] Ag/Ab Negative Negative 05/15 4th Gen *NA* [place] (05/15/19 4:04 AM) CHEM PANEL Procalcitoni 0.96 0.00 - 05/14 n Lvl 0. [place] IMMUNOLOGY Hep B Core Negative Negative 05/14 IgM *NA* [place] (05/14/19 9:48 AM) IMMUNOLOGY Hep Bs Ag Negative Negative 05/14 MH *NA* [place] (05/14/19 9:48 AM) IMMUNOLOGY Hep A IgM Negative Negative 05/14 MH *NA* [place] (05/14/19 9:48 AM) IMMUNOLOGY Hep C Ab Positive 05/14 *ABN* /2018 [place] (05/14/19 9:48 AM) TUMOR AFP 48.3 0.0 - 11.0 05/14 [place] CHEM PANEL Phosphorus 2.7 2.5 - 4.5 05/14 [place] CHEM PANEL Magnesium 2.0 1.8 - 2.4 05/14 Lvl [place] CHEM PANEL eGFR 92 05/14 [facility] Comment: The [place] eGFR is calculated using the CKD-EPI formula. [...] Bili Total 1.8 0.2 - 1.3 05/14 [place] CHEM PANEL Alk Phos 85 39 - 136 05/14 [place] CHEM PANEL AST 219 0 - 37 05/14 [place] CHEM PANEL Creatinine 0.93 0.50 - 07 MH Lvl 1.40 [place] CHEM PANEL BUN 15 7 - 22 05/14 [place] CHEM PANEL Glucose Lvl 86 70 - 99 05/14 [place] CHEM PANEL ALT 154 0 - 65 05/14 [place] CHEM PANEL Albumin Lvl 2.8 3.5 - 5.0 05/14 [place] CHEM PANEL CO2 19 24 - 32 05/14 [place] CHEM PANEL Total 6.5 6.4 - 8.4 05/14 [place] CHEM PANEL Calcium Lvl 8.1 8.5 - 10.5 07 [place] CHEM PANEL Potassium 4.2 3.5 - 5.1 07/10 MH Lvl /2019 [place] CHEM PANEL Chloride Lvl 103 95 - 109 05/14 [place] CHEM PANEL Sodium Lvl 132 135 - 145 07 [place] CHEM PANEL Globulin 3.7 2.7 - 4.2 07 [place] CHEM PANEL A/G Ratio 0.8 0.7 - 1.6 05/14 [place] CHEM PANEL B/C Ratio 16 6 - 25 07 [place] CHEM PANEL AGAP 14.2 10.0 - 07 MH 20.0 [place] HEMATOLOGY MPV 10.4 7.4 - 10.4 05/14 [place] HEMATOLOGY RBC 5.83 4.70 - 05/14 MH 6.10 [place] HEMATOLOGY MCHC 35.1 32.0 - 05/14 MH 36.0 [place] HEMATOLOGY MCV 90.5 80.0 - 05/14 MH 94.0 [place] HEMATOLOGY Hgb 18.5 14.0 - 05/14 MH 18.0 [place] HEMATOLOGY Hct 52.7 42.0 - 07 MH 54.0 [place] HEMATOLOGY WBC 5.1 3.7 - 10.4 05/14 [place] HEMATOLOGY Platelet 65 133 - 450 05/14 [place] HEMATOLOGY RDW 13.2 11.5 - 05/14 MH 14.5 [place] HEMATOLOGY MCH 31.8 27.0 - 05/14 MH 31.0 [place] HEMATOLOGY Lymphocytes 12.5 20.0 - 07 MH 40.0 [place] HEMATOLOGY Monocytes # 0.4 0.0 - 0.8 05/14 [place] HEMATOLOGY Lymphocytes 0.6 1.0 - 5.5 / MH # /2018 [place] HEMATOLOGY Basophils 0.6 0.0 - 1.0 05/14 [place] HEMATOLOGY Neutrophils 4.0 1.5 - 8.1 10 MH # /2018 [place] HEMATOLOGY Monocytes 8.3 2.0 - 12.0 05/14 [place] HEMATOLOGY Segs 78.6 45.0 - 0710 MH 75.0 /2019 [place] URINE AND UA Mucus Few /LPF None Seen 05/14 STOOL /LPF /2018 [place] URINE AND UA RBC 3 0 - 2 05/14 STOOL [place] URINE AND UA Sq Epi Occasional Few /LPF 05/14 STOOL /LPF [place] URINE AND UA WBC 2 0 - 5 05/14 STOOL [place] URINE AND UA Leuk Est Negative Negative 05/14 STOOL (05/13/19 9:45 PM) /2018 [place] URINE AND Micro? Not Indicated 05/14 STOOL *NA* [place] (05/13/19 9:45 PM) URINE AND UA Bili Negative Negative 05/14 STOOL *NA* [place] (05/13/19 9:45 PM) URINE AND UA Nitrite Negative Negative 05/14 STOOL (05/13/19 9:45 PM) /2018 [place] URINE AND UA Blood Negative Negative 05/14 STOOL (05/13/19 9:45 PM) [place] URINE AND UA pH 5.0 5.0 - 8.0 05/14 STOOL [place] URINE AND UA 4.0 0.1 - 1.0 05/14 STOOL Urobilinogen /2018 [place] URINE AND UA Turbidity Clear Clear 05/14 STOOL (05/13/19 9:45 PM) [place] URINE AND UA Color Anupama Yellow 05/14 STOOL *ABN* [place] (05/13/19 9:45 PM) URINE AND UA Spec Grav 1.016 <=1.030 05/14 STOOL [place] URINE AND UA Protein Negative Negative 05/14 [facility]OOL mg/dL mg/dL [place] URINE AND UA Glucose Negative Negative 05/14 [facility] mg/dL mg/dL [place] URINE AND UA Ketones Negative Negative 05/14 STOOL mg/dL mg/dL [place] Culture: <10,000 05/14 Urine CFU/mL [place] [facility] CHEM PANEL Lactic Acid 1.7 0.5 - 2.2 05/14 Lvl [place] DRUG U Benzodiaz Negative Negative 05/13 SCREEN Scr *NA* [place] (05/13/19 5:10 AM) DRUG U Bouchra Scr Negative Negative 05/13 SCREEN *NA* [place] (05/13/19 5:10 AM) DRUG U Amph Scr Positive Negative 05/13 SCREEN *ABN* /2018 [place] (05/13/19 5:10 AM) DRUG UDS Note See Note 05/13 MH SCREEN (05/13/19 5:10 AM) /2018 [place] DRUG U Negative Negative 05/13 SCREEN Phencyclidin *NA* [place] e Scr (05/13/19 5:10 AM) DRUG U Opiate Scr Positive Negative 05/13 SCREEN *ABN* /2018 [place] (05/13/19 5:10 AM) DRUG U Cocaine Negative Negative 05/13 SCREEN Scr *NA* /2018 [place] (05/13/19 5:10 AM) DRUG U Cannab Scr Positive Negative 05/13 SCREEN *ABN* [place] (05/13/19 5:10 AM) URINE AND UA Bacteria Occasional None Seen 05/13 STOOL /HPF /HPF /2018 [place] URINE AND UA Mucus Few /LPF None Seen 05/13 STOOL /LPF /2018 [place] URINE AND UA Sq Epi None Seen 05/13 STOOL [place] URINE AND UA Leuk Est Negative Negative 05/13 STOOL (05/13/19 5:10 AM) [place] URINE AND UA Nitrite Negative Negative 05/13 STOOL (05/13/19 5:10 AM) [place] URINE AND UA WBC 1 0 - 5 05/13 STOOL [place] URINE AND UA RBC 2 0 - 2 05/13 STOOL [place] URINE AND UA Glucose Negative Negative 05/13 STOOL mg/dL mg/dL [place] URINE AND UA Ketones Negative Negative 05/13 STOOL mg/dL mg/dL [place] URINE AND UA Bili Negative Negative 05/13 STOOL *NA* /2018 [place] (05/13/19 5:10 AM) URINE AND UA Blood Negative Negative 05/13 STOOL (05/13/19 5:10 AM) [place] URINE AND UA 4.0 0.1 - 1.0 05/13 STOOL Urobilinogen /2018 [place] URINE AND UA Spec Grav 1.048 <=1.030 05/13 STOOL [place] URINE AND UA pH 5.0 5.0 - 8.0 05/13 STOOL [place] URINE AND UA Protein Negative Negative 05/13 STOOL mg/dL mg/dL [place] URINE AND UA Color Anupama Yellow 05/13 STOOL *ABN* /2018 [place] (05/13/19 5:10 AM) URINE AND UA Turbidity Clear Clear 05/13 STOOL (05/13/19 5:10 AM) [facility] CHEM PANEL eGFR 96 05/13 Result Comment: The [place] eGFR is calculated using the CKD-EPI formula. [...] 0.90 0.50 - 07 MH Lvl 1.40 [place] CHEM PANEL Glucose Lvl 114 70 - 99 05/13 [place] CHEM PANEL BUN 13 7 - 22 05/13 [place] CHEM PANEL Calcium Lvl 8.8 8.5 - 10.5 05/13 [place] CHEM PANEL Sodium Lvl 130 135 - 145 05/13 [place] CHEM PANEL Potassium 4.1 3.5 - 5.1 / MH Lvl [place] CHEM PANEL Chloride Lvl 99 95 - 109 / [place] CHEM PANEL CO2 21 24 - 32 / [place] CHEM PANEL AGAP 14.1 10.0 - 07/ MH 20.0 [place] CARDIAC Troponin-I <0.02 0.00 - 07/08 ENZYMES 0.40 [place] CHEM PANEL Lipase Lvl 461 73 - 393 / [place] CHEM PANEL AST 134 0 - 37 07/08 MH /2019 [place] CHEM PANEL eGFR 80 07/08 Result Comment: The [place] eGFR is calculated using the CKD-EPI formula. [...] 0.50 - 07/ MH Lvl 1.40 /2019 [place] CHEM PANEL Potassium 4.2 3.5 - 5.1 07/08 MH Lvl [place] CHEM PANEL Sodium Lvl 131 135 - 145 07/ MH [place] CHEM PANEL Calcium Lvl 8.8 8.5 - 10.5 05/12 [place] CHEM PANEL CO2 21 24 - 32 / [place] CHEM PANEL Chloride Lvl 99 95 - 109 07/ MH [place] CHEM PANEL ALT 143 0 - 65 07/08 MH [place] CHEM PANEL Albumin Lvl 3.3 3.5 - 5.0 07/08 MH [place] CHEM PANEL Glucose Lvl 165 70 - 99 07/08 MH [place] CHEM PANEL BUN 13 7 - 22 07/ MH [place] CHEM PANEL Bili Total 1.3 0.2 - 1.3 07/08 MH [place] CHEM PANEL Total 7.7 6.4 - 8.4 07/08 MH Protein [place] CHEM PANEL Alk Phos 94 39 - 136 / MH [place] CHEM PANEL AGAP 15.2 10.0 - 07/08 MH 20.0 /2019 [place] CHEM PANEL B/C Ratio 12 6 - 25 07/08 MH [place] CHEM PANEL Globulin 4.4 2.7 - 4.2 07/08 /2018 [place] CHEM PANEL A/G Ratio 0.8 0.7 - 1.6 07/ /2018 [place] HEMATOLOGY INR 1.03 0.85 - 07/ MH 1.17 [place] HEMATOLOGY PT 13.3 12.0 - 07/08 MH 14.7 /2018 [place] HEMATOLOGY PTT 39.2 22.9 - 07/08 MH 35.8 /2018 [place] HEMATOLOGY RDW 13.4 11.5 - 07 MH 14.5 [place] HEMATOLOGY Platelet 98 133 - 450 07/ /2018 [place] HEMATOLOGY MPV 9.3 7.4 - 10.4 07 /2018 [place] HEMATOLOGY MCV 91.0 80.0 - 05/12 MH 94.0 /2018 [place] HEMATOLOGY MCH 32.1 27.0 - 07/ MH 31.0 /2018 [place] HEMATOLOGY MCHC 35.3 32.0 - 05/12 MH 36.0 [place] HEMATOLOGY WBC 9.0 3.7 - 10.4 07/08 /2018 [place] HEMATOLOGY RBC 6.03 4.70 - 0708 MH 6.10 /2018 [place] HEMATOLOGY Hgb 19.4 14.0 - 0708 MH 18.0 [place] HEMATOLOGY Hct 54.8 42.0 - 0708 MH 54.0 /2018 [place] HEMATOLOGY Lymphocytes 6.8 20.0 - 07/08 MH 40.0 /2018 [place] HEMATOLOGY Neutrophils 8.0 1.5 - 8.1 /08 MH # /2018 [place] HEMATOLOGY Basophils 0.4 0.0 - 1.0 07/08 /2018 [place] HEMATOLOGY Monocytes 3.4 2.0 - 12.0 07/08 /2018 [place] HEMATOLOGY Lymphocytes 0.6 1.0 - 5.5 07/08 MH # /2018 [place] HEMATOLOGY Monocytes # 0.3 0.0 - 0.8 07/08 [place] HEMATOLOGY Segs 89.4 45.0 - 07/08 MH 75.0 [place] TOXICOLOGY Acetaminoph <2 10 - 20 07/08 Lvl (05/12/19 5:33 PM) /2018 [facility] d TOXICOLOGY Etoh (%) <0.003 07/ [place] TOXICOLOGY Ethanol Lvl <3 07/08 MH /2019 [place] TOXICOLOGY Salicylate <1.7 0.0 - 30.0 05/12 Lvl /2018 [place] Pathology Reports No Data Provided for This Section Diagnostic Reports Report Value Date Source Abdomen/Pelvis w IV Radiation Dose CTDIVOL = 0 (mGy): DLP = 635.9 (mGy-cm) 10/19/2019 [facility] contrast CT PROCEDURE INFORMATION: Exam: CT Abdomen [...] Lorenzo Jimenez MD On 10/19/2019 13:00:17; [id number] Abdomen w/wo EXAM: MRI of the abdomen wit hout and with 18 cc of Dotarem IV contrast 05/15/2019 [facility] contrast MRI INDICATION: Abdominal pain, liver mass [...] ascites . Multiple subcentimeter pancreatic cysts. SL: [id number] Chest 1view DX 1 view chest portable: 05/14/2019 [facility] HISTORY: Short of breath. FINDINGS: Both lungs are [place] ar. The heart and mediastinal contours are unremarkable. No pleural or bony pathology. IMPRESSION: No acute finding SL: EG-M Abdomen RUQ US Study: Abdomen RUQ US 05/13/2019 [facility] Clinical Indication: - right upper quadrant jaycob [...] 1view DX CLINICAL INDICATION: - vomiting 05/12/2019 [facility] COMPARISON: None. FINDINGS: The AP chest radiograph show s no interstitial or airspace opacities, pleural effusions or pneumothorax. The heart size is normal. The trachea is midline. No acute osseous abnormality is identified. Atherosclerotic calcifications are noted. IMPRESSION: No acute cardiopulmonary process. SL: AUDREY ED Abdomen/Pelvis PROCEDURE: CT ABDOMEN AND PELVIS WITH CONTRAST 05/12/2019 [facility] IV contrast only CT Clinical Indication: - [...] 10/19/2019 [place] Systolic (mm Hg) 129 05/15/2019 [place] Diastolic (mm Hg) 87 05/15/2019 [place] Respitory Rate 16 05/15/2019 [place] Heart Rate 77 05/15/2019 [place] Temperature Oral (F) 99.5 F 05/15/2019 [place] Temperature Oral (F) 97.5 F 05/15/2019 [place] Heart Rate 88 05/15/2019 [facility] Systolic (mm Hg) 114 05/15/2019 [facility] Diastolic (mm Hg) 70 [facility] 16 05/15/2019 [facility] Temperature Oral (F) 98.3 F 05/15/2019 [facility] Systolic (mm Hg) 134 05/15/2019 [facility] Diastolic (mm Hg) 87 05/15/2019 [facility] d Respitory Rate 16 05/15/2019 [facility] Heart Rate 76 05/15/2019 [facility] Weight 83.182 05/13/2019 [facility] Height 185.42 cm 05/13/2019 [facility] BMI Calculated 24.19 05/13/2019 [facility] BMI Calculated 21.15 05/12/2019 [facility] Weight 72.727 05/12/2019 [facility] Height 185.42 cm 05/12/2019 [facility] Encounters Location Location Encounter Encounter Reason Attending ADM DC Stat us Source Details Type Number For Provider Date Date Visit [facility] Inpatient [id number] Dave 05/12 05/16 [facility] /2018 [facility] [id number] Ruperto Cedeno 10/19 10/19 [facility] /2018 [facility] [id number] Abdiwahab 11/12 11/12 [facility] Procedures Procedure Code Date Perfomer Comments Source Cholecystectomy [id number] [facility] [place],[facility] Assessment and Plan Assessment and Plan Date Source Extracted from:Title: ID progress note 05/16/2019 Randy Schmid Author: Mio Olivares MD Date: 05/15/19 [facility] INFECTIOUS DISEASES PROGRESS NOTE Stan Garcia M.D. [...] sterile water 10 mL) 1 gm IVPB [id number] 120 ml/hr LABORATORY (All labs have been [...]
--- OUTSIDE RECORDS SUMMARY | 2020-10-01 12:32 | XMS REPORT | Continuity of Care Document ---
:[address] [facility] t Address [address] [place] [address] Care Team Providers Name Role Phone Chaya [...] Mem oria 1-07 06:18:00 l SOB 00:00: [place] 00 Active 11/11/2019 [facility] OTHER Diagnosis Active 2018-112019-11-17 Mem oria 2-15 06:42:00 l OTHER 00:00: [place] 00 Active 10/19/2019 [facility] ABDOMINAL Diagnosis Active 2019-05-12 Memoria PAIN 05-12 19:12:00 l 00:00: [place] ABDOMINAL 00 PAIN Active 05/12/2019 [facility] [place] INTRACTABL Diagnosis Active 2019-11-25 Memoria E 05-12 13:20:00 l VOMITING, 00:00: [place] DEHYDRATIO INTRACTABL 00 N E VOMITING, DEHYDRATIO N Active 05/12/2019 [facility] [place] Vomiting, Problem 2019-05-17 Tx moria unspecifie 22:27:25 l d [place] Vomiting, unspecifie d 05/17/2019 [facility] Diabetes Problem Resolve 2019-11-13 Me moria mellitus d 23:53:55 l (disorder) Diabetes He rmann mellitus (disorder) 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 [facility] Hypertensi Problem Resolve 2019-11-13 Memoria ve d 23:53:55 l disorder, [place] systemic Hypertensi arterial ve (disorder) disorder, systemic arterial (disorder) 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 [facility] VOMITING, Diagnosis Active 2019-11-25 Memoria UNSPECIFIE 13:20:00 l D [place] VOMITING, UNSPECIFIE D Active [facility] [place] DEHYDRATIO Diagnosis Active 2019-11-25 Memoria N 13:20:00 l [place] DEHYDRATIO N Active [facility] [place] Disorder Problem 2019-11-13 2019-11-13 Memoria of the 11-11 23:53:55 23:53:55 l skin and Disorder 18:00: Emelia ivy subcutaneo of the 00 us tissue, skin and unspecifie subcutaneo d us tissue, unspecifie d 11/11/2019 11/13/2019 [facility] Follicular Problem 2019-11-13 2019-11-13 Memoria disorder, 11-11 23:53:55 23:53:55 l unspecifie 18:00: Chuck neal Follicular 00 disorder, unspecifie d 11/11/2019 11/13/2019 [facility] Patient's Problem 2018-112019-10-21 2019-10-21 Memoria other 2-15 22:21:49 22:21:49 l noncomplia 18:00: Chuck dooley nce with Patient's 00 medication other regimen noncomplia nce with medication regimen 10/19/2019 10/21/2019 [facility] Hyperglyce Problem 2018-112019-10-21 2019-10-21 Memoria yanet, 2-15 22:21:49 22:21:49 l unspecifie 18:00: Chuck neal Hyperglyce 00 yanet, unspecifie d 10/19/2019 10/21/2019 [facility] Allergies, Adverse Reactions, Alerts Allergy Allergy Status Severity Reaction(s) Onset Inactive Treating Comm ents Source Name Type Date Date Clinician morphine DA Active OR [facility] 8[facility]27 [place] 00:00: d 00 [facility] No Known DA Active U [facility] All[facility]ie 6-13 [place] [facility] Social History Social Habit Start Date Stop Date Quantity Comments Source Social History 2019-05-13 2019-05-13 [facility] adeel 19:52:05 19:52:05 Medications Ordered Filled Start Stop [...] kg, Priority: STAT, Start date: 11/11/19 19:26:00 SHOW HOST, Stop date: 11/11/19 19:26:00 SHOW HOST Zofran ODT 2020-0 No 4 mg, Memori a 1-08 Route: PO, l 00:43: Drug form: TABDIS, ONCE, Dosing Weight 84.091, kg, Priority: STAT, Start date: 11/11/19 18:43:00 SHOW HOST, Stop date: 11/11/19 18:43:00 SHOW HOST Dexamethaso 2020-0 No 10 mg, 2.5 Memoria ne 1-08 mL, Route: l 00:42: IM, Drug form: INJ, ONCE, Dosing Weight 84.091, kg, Priority: STAT, Start date: 11/11/19 18:42:00 SHOW HOST, Stop date: 11/11/19 18:42:00 SHOW HOST, 0 Metformin 2019- No Notes: Memori a [...] 2-15 (Same as: l 18:36: Humulin R, [place] 00 NovoLIN R) Roll in palms of hands gently; Do not shake vigorously . WASTE: F/P - Black; E - Municipal Trash Bin Stable for 31 days at room temperatur e Expires in days from ____Date Saline 2018-11 No Notes: Memoria Flush 0.9% 2-15 (Same as: l 16:48: BD [place] 00 Posiflush) Sodium 2018-11 No 1,000 mL, Memori a Chloride 2-15 1000 l 0.9% 16:48: ml/hr, [place] (Bolus) IV 00 Infuse Over: 1 hr, Route: IV, 1,000, Drug form: INJ, ONCE, Priority: STAT, Dosing Weight 84.091 kg, Start date: 10/19/19 10:48:00 SHOW HOST, Stop date: 10/19/19 10:48:00 SHOW HOST, 0 Lisinopril 2018-11 No Notes: Memor ia 2-15 (Same as: l 16:48: Prinivil, [place] 00 Zestril) cefdinir No Notes: Memoria 300 MG Oral 7-12 (Same As: l Capsule 02:00: Omnicef) Chuck n 00 cefdinir Yes 300 mg = 1 Mem oria 300 MG Oral 7-11 cap, PO, l Capsule 21:39: Q12H, X 5 Monik nn 00 day, # 10 cap, 0 Refill(s), Pharmacy: [facility] [address] [place] [address] + No Notes: Memor ia sterile 7-10 (Same As: l water 10 mL 03:00: Rocephin). Use with 100 mL NS and infuse over 30 min MEDICATION WASTE Product Size: 1000 mg Product Wasted: ___ mg Tylenol No Notes: Max Nikita jelly 7-10 acetaminop l 01:21: hen = 4000mg/day (4 [...] 06/12/19 1:03:00 CDT, 1.94, m2, 0 Dextrose 0 No 50 mL, Memoria 50% Syringe 05-13 [...] a 05-13 (Same As: l 06:04: Dulcolax, [place] 00 Bisco-Lax) Morphine 2018-0 No 2 mg, 1 Memori a 05-13 mL, Route: l 06:04: IVP, Drug form: SOLN, Q4H, Dosing Weight 72.727, kg, PRN Pain Score 7-10, Start date: 05/13/19 1:04:00 CDT, Duration: 30 day, Stop date: 06/12/19 1:03:00 CDT, 0 Sodium 2018-0 No 1,000 mL, Memori a Chloride 05-13 Rate: 100 l 0.9% IV 04:29: ml/hr, [place] 1,000 mL + 00 Infuse M.V.I.-12 over: [...] 0.9% 7-08 (Same as: l 22:02: BD [place] 00 Posiflush) Saline No Notes: Memoria Flush 0.9% 7-08 (Same as: l 22:01: BD [place] 00 Posiflush) Sodium 2019 No 1,000 mL, Memori a Chloride 7-08 1000 l 0.9% 22:01: ml/hr, [place] (Bolus) IV 00 Infuse Over: 1 hr, Route: IV, 1,000, Drug form: INJ, ONCE, Priority: STAT, Dosing Weight 72.727 kg, Start date: 05/12/19 17:01:00 CDT, Stop date: 05/12/19 17:01:00 CDT, 0 Ondansetron 2018- No Notes: Nikita jelly 7-08 (Same as: l 22:01: Zofran) [place] 00 MEDICATION WASTE Product Size: 4 mg Product Wasted: ___ mg Famotidine No Notes: Memor ia 7-08 (Same as: l 22:01: Pepcid) [place] 00 Can be dilute in 5-10cc NS IVP: Slow IV push over at least 2 minutes. Morphine 2018- No Notes: Memoria 7-08 (Same l 22:01: as:MORPhin [place] 00 e Sulfate) Ativan 0 No Notes: Memoria 7-08 (Same as: l 22:01: Ativan) [place] 00 Vital Signs Vital Name Observation Time Observation Value Comments Source Temperature Oral (F) 2019-11-12 01:45:00 98.0 F [facility] [place] Heart Rate 2019-11-12 01:45:00 [facility] [place] Respitory Rate 2019-11-12 01:45:00 Memori al [place] Systolic (mm Hg) 2019-11-12 01:45:00 Nikita rial [place] Diastolic (mm Hg) 2019-11-12 01:45:00 Mem orial [place] Systolic (mm Hg) 2019-11-12 00:47:00 Nikita rial [place] Diastolic (mm Hg) 2019-11-12 00:47:00 Mem orial [place] Heart Rate 2019-11-12 00:47:00 [facility] [place] Respitory Rate 2019-11-12 00:47:00 Memori al [place] Temperature Oral (F) 2019-11-12 00:47:00 98.1 F [facility] [place] Height 2019-11-12 00:47:00 182.88 cm [facility] [place] BMI Calculated 2019-11-12 00:47:00 Memori al [place] Weight 2019-11-12 00:47:00 [facility] [place] Systolic (mm Hg) 2019-10-19 19:19:00 Nikita rial [place] Diastolic (mm Hg) 2019-10-19 19:19:00 Mem orial [place] Respitory Rate 2019-10-19 19:19:00 Memori al [place] Heart Rate 2019-10-19 19:19:00 [facility] [place] Temperature Oral (F) 2019-10-19 19:19:00 98.7 F [facility] [place] Systolic (mm Hg) 2019-10-19 17:45:00 Nikita rial [place] Diastolic (mm Hg) 2019-10-19 17:45:00 Mem orial [place] Respitory Rate 2019-10-19 17:45:00 Memori al [place] Heart Rate 2019-10-19 17:45:00 [facility] [place] Systolic (mm Hg) 2019-10-19 16:28:00 Nikita rial [place] Diastolic (mm Hg) 2019-10-19 16:28:00 Mem orial [place] Heart Rate 2019-10-19 16:28:00 [facility] [place] Respitory Rate 2019-10-19 16:28:00 Memori al [place] Temperature Oral (F) 2019-10-19 16:28:00 98.9 F [facility] [place] Height 2019-10-19 16:28:00 185.42 cm [facility] [place] BMI Calculated 2019-10-19 16:28:00 Memori al [place] Weight 2019-10-19 16:28:00 [facility] [place] Systolic (mm Hg) 2019-05-15 21:09:00 Nikita rial [place] Diastolic (mm Hg) 2019-05-15 21:09:00 Mem orial [place] Respitory Rate 2019-05-15 21:09:00 Memori al [place] Heart Rate 2019-05-15 21:09:00 [facility] [place] Temperature Oral (F) 2019-05-15 21:09:00 99.5 F [facility] [place] Temperature Oral (F) 2019-05-15 16:52:00 97.5 F [facility] [place] Heart Rate 2019-05-15 16:52:00 [facility] [place] Systolic (mm Hg) 2019-05-15 16:52:00 Nikita rial [place] Diastolic (mm Hg) 2019-05-15 16:52:00 Mem orial [place] Respitory Rate 2019-05-15 16:52:00 Memori al [place] Temperature Oral (F) 2019-05-15 12:48:00 98.3 F [facility] [place] Systolic (mm Hg) 2019-05-15 12:48:00 Nikita rial [place] Diastolic (mm Hg) 2019-05-15 12:48:00 Mem orial [place] Respitory Rate 2019-05-15 12:48:00 Memori al [place] Heart Rate 2019-05-15 12:48:00 [facility] [place] Weight 2019-05-13 19:57:00 [facility] [place] Height 2019-05-13 19:57:00 185.42 cm [facility] [place] BMI Calculated 2019-05-13 19:57:00 Memori al [place] BMI Calculated 2019-05-12 21:49:00 Memori al [place] Weight 2019-05-12 21:49:00 [facility] [place] Height 2019-05-12 21:49:00 185.42 cm [facility] [place] Procedures Procedure Date / Time Performed Performing Clinician Sourc e Cholecystectomy [facility] [place] Encounters Start End Encounter Admission Attending Care Care Encounter Source Date/Time Date/Time Type Type Clinicians Facility Department ID 2019-05-12 Inpatient E [facility] MED [id number] [facility] L 23:36:00 2019-11-11 2019-11-11 Outpatient CLAUDIA HaynesSE [id number] 18:37:11 19:55:00 Abdiwahab 02 English 2019-11-11 2019-11-11 Emergency E AMOSSE AMOSSE [id number] MH 18:37:00 18:37:00 [facility] 2019-10-19 2019-10-19 Outpatient Ruperto Cedeno SE SE [id number] 10:27:21 13:25:00 Q 2019-10-19 2019-10-19 [id number] 10:27:00 10:27:00 Susan estevez [facility] 2019-05-12 2019-05-15 Outpatient ELEANOR Camara [facility]PL [id number] 16:46:41 20:14:00 Peter 00 Results Test Description Test Time Test Comments Results Result Comments Source CBC W/AUTO DIFF 2020-09-07 20:54:00 Test Item Value Reference Range Interpretation Comme nts WHITE BLOOD CELL (test code = WBC) 6.3 K/mm3 3.5-11.0 N RED BLOOD CELL (test code = RBC) 4.30 M/mm3 4.70-6.10 L HEMOGLOBIN (test code = HGB) 14.0 G/DL 12.3-15.9 N HEMATOCRIT (test code = HCT) 41.2 % 35.8-46.7 N MEAN CELL VOLUME (test code = MCV) 95.8 Fl 86.3-98.9 N MEAN CELL HGB (test code = MCH) 32.6 pg 28.9-34.4 N MEAN CELL HGB CONCETRATION (test code = MCHC) 34.0 G/DL 32.1-34. 5 N RED CELL DISTRIBUTION WIDTH (test code = RDW) 11.9 SD 11.5-14. 5 N PLATELET COUNT (test code = PLT) 134 K/mm3 150-450 L MEAN PLATELET VOLUME (test code = MPV) 11.20 fL 7.0-9.6 H NEUTROPHIL % (test code = NT%) 42.7 % 40-76 N IMMATURE GRANULOCYTE % (test code = IG%) 0.3 % 0.0-5.0 N LYMPHOCYTE % (test code = LY%) 39.7 % 20.5-51.1 N MONOCYTE % (test code = MO%) 13.2 % 1.7-9.3 H EOSINOPHIL % (test code = EO%) 3.2 % 0.0-6.0 N BASOPHIL % (test code = BA%) 0.9 % 0.0-2.0 N NUCLEATED RBC % (test code = NRBC%) 0.0 /100WBC% 0.0-1.0 N NEUTROPHIL # (test code = NT#) 2.7 K/mm3 1.8-7.6 N IMMATURE GRANULOCYTE # (test code = IG#) 0.02 x10 3/uL 0.00-0.03 N LYMPHOCYTE # (test code = LY#) 2.5 K/mm3 0.6-3.0 N MONOCYTE # (test code = MO#) 0.8 K/mm3 0.2-1.5 N EOSINOPHIL # (test code = EO#) 0.2 K/mm3 0.0-0.4 N BASOPHIL # (test code = BA#) 0.1 K/mm3 0.0-0.2 N NUCLEATED RBC # (test code = NRBC#) 0.0 K/mm3 0.00-0.01 N MANUAL DIFF REQUIRED (test code = MDIFF) NO DIFF/SCN CRITERIA CBC W/AUTO [id number] 20:54:00 Test Item Value Reference Range Interpretation Comments WHITE BLOOD CELL (test code = 6.3 K/mm3 3.5-11.0 N WBC) RED BLOOD CELL (test code = 4.30 M/mm3 4.70-6.10 L RBC) HEMOGLOBIN (test code = HGB) 14.0 G/DL 12.3-15.9 N HEMATOCRIT (test code = HCT) 41.2 % 35.8-46.7 N MEAN CELL VOLUME (test code = 95.8 Fl 86.3-98.9 N MCV) MEAN CELL HGB (test code = MCH) 32.6 pg 28.9-34.4 N MEAN CELL HGB CONCETRATION 34.0 G/DL 32.1-34.5 N (test code = MCHC) RED CELL DISTRIBUTION WIDTH 11.9 SD 11.5-14.5 N (test code = RDW) PLATELET COUNT (test code = 134 K/mm3 150-450 L PLT) MEAN PLATELET VOLUME (test code 11.20 fL 7.0-9.6 H = MPV) NEUTROPHIL % (test code = NT%) 42.7 % 40-76 N IMMATURE GRANULOCYTE % (test 0.3 % 0.0-5.0 N code = IG%) LYMPHOCYTE % (test code = LY%) 39.7 % 20.5-51.1 N MONOCYTE % (test code = MO%) 13.2 % 1.7-9.3 H EOSINOPHIL % (test code = EO%) 3.2 % 0.0-6.0 N BASOPHIL % (test code = BA%) 0.9 % 0.0-2.0 N NUCLEATED RBC % (test code = 0.0 /100WBC% 0.0-1.0 N NRBC%) NEUTROPHIL # (test code = NT#) 2.7 K/mm3 1.8-7.6 N IMMATURE GRANULOCYTE # (test 0.02 x10 3/uL 0.00-0.03 N code = IG#) LYMPHOCYTE # (test code = LY#) 2.5 K/mm3 0.6-3.0 N MONOCYTE # (test code = MO#) 0.8 K/mm3 0.2-1.5 N EOSINOPHIL # (test code = EO#) 0.2 K/mm3 0.0-0.4 N BASOPHIL # (test code = BA#) 0.1 K/mm3 0.0-0.2 N NUCLEATED RBC # (test code = 0.0 K/mm3 0.00-0.01 N NRBC#) MANUAL DIFF REQUIRED (test code NO DIFF/SCN CRITERIA = MDIFF) RBC [id number] 20:54:00 Test Item Value Reference Range Interpretation Comments PLATELET MORPHOLOGY (test code = NORMAL PLTMORPH) CBC W/AUTO [id number] 20:54:00 Test Item Value Reference Range Interpretation Comments WHITE BLOOD CELL (test code = 6.3 K/mm3 3.5-11.0 N WBC) RED BLOOD CELL (test code = 4.30 M/mm3 4.70-6.10 L RBC) HEMOGLOBIN (test code = HGB) 14.0 G/DL 12.3-15.9 N HEMATOCRIT (test code = HCT) 41.2 % 35.8-46.7 N MEAN CELL VOLUME (test code = 95.8 Fl 86.3-98.9 N MCV) MEAN CELL HGB (test code = MCH) 32.6 pg 28.9-34.4 N MEAN CELL HGB CONCETRATION 34.0 G/DL 32.1-34.5 N (test code = MCHC) RED CELL DISTRIBUTION WIDTH 11.9 SD 11.5-14.5 N (test code = RDW) PLATELET COUNT (test code = 134 K/mm3 150-450 L PLT) MEAN PLATELET VOLUME (test code 11.20 fL 7.0-9.6 H = MPV) NEUTROPHIL % (test code = NT%) 42.7 % 40-76 N IMMATURE GRANULOCYTE % (test 0.3 % 0.0-5.0 N code = IG%) LYMPHOCYTE % (test code = LY%) 39.7 % 20.5-51.1 N MONOCYTE % (test code = MO%) 13.2 % 1.7-9.3 H EOSINOPHIL % (test code = EO%) 3.2 % 0.0-6.0 N BASOPHIL % (test code = BA%) 0.9 % 0.0-2.0 N NUCLEATED RBC % (test code = 0.0 /100WBC% 0.0-1.0 N NRBC%) NEUTROPHIL # (test code = NT#) 2.7 K/mm3 1.8-7.6 N IMMATURE GRANULOCYTE # (test 0.02 x10 3/uL 0.00-0.03 N code = IG#) LYMPHOCYTE # (test code = LY#) 2.5 K/mm3 0.6-3.0 N MONOCYTE # (test code = MO#) 0.8 K/mm3 0.2-1.5 N EOSINOPHIL # (test code = EO#) 0.2 K/mm3 0.0-0.4 N BASOPHIL # (test code = BA#) 0.1 K/mm3 0.0-0.2 N NUCLEATED RBC # (test code = 0.0 K/mm3 0.00-0.01 N NRBC#) MANUAL DIFF REQUIRED (test code NO DIFF/SCN CRITERIA = MDIFF) BASIC METABOLIC [id number] 20:47:00 Test Item Value Reference Range Interpretation Comments SODIUM (test code = NA) 138 mmol/L 134-147 N POTASSIUM (test code = 3.6 mmol/L 3.4-5.0 N K) CHLORIDE (test code = 108 mmol/L 100-108 N CL) CARBON DIOXIDE (test 22 mmol/L 21-32 N code = CO2) ANION GAP (test code = 8.0 GAP calc 4.0-15.0 N GAP) GLUCOSE (test code = 232 MG/DL 70-110 H GLU) BLOOD UREA NITROGEN 11 MG/DL 7-18 N (test code = BUN) GLOMERULAR FILTRATION >=60 max estimate >60 RATE (test code = GFR) estGFR CREATININE (test code = 0.8 MG/DL 0.8-1.3 N CREAT) CALCIUM (test code = CA) 8.5 MG/DL 8.5-10.1 N HEPATIC FUNCTION [id number] 20:47:00 Test Item Value Reference Range Interpretation Comments TOTAL PROTEIN (test code = PROT) 6.4 G/DL 6.4-8.2 N ALBUMIN (test code = ALB) 2.8 G/DL 3.4-5.0 L BILIRUBIN TOTAL (test code = BILT) 0.70 MG/DL 0.2-1.2 N BILIRUBIN DIRECT (test code = 0.40 MG/DL 0.00-0.30 H BILD) BILIRUBIN INDIRECT (test code = 0.30 MG/DL 0.2-1.2 N BILIND) SGOT/AST (test code = AST) 90 Unit/L 15-37 H SGPT/ALT (test code = ALT) 141 Unit/L 12-78 H ALKALINE PHOSPHATASE TOTAL (test 189 Unit/L 50-136 H code = ALKP) [id number] 20:47:00 Test Item Value Reference Range Interpretation Comments LIPASE (test code = LIP) 219 Unit/L 114-286 N CBC W/AUTO [id number] 20:34:00 Test Item Value Reference Range Interpretation Comments WHITE BLOOD CELL (test code = WBC) 6.3 K/mm3 3.5-11.0 N RED BLOOD CELL (test code = RBC) 4.30 M/mm3 4.70-6.10 L HEMOGLOBIN (test code = HGB) 14.0 G/DL 12.3-15.9 N HEMATOCRIT (test code = HCT) 41.2 % 35.8-46.7 N MEAN CELL VOLUME (test code = MCV) 95.8 Fl 86.3-98.9 N MEAN CELL HGB (test code = MCH) 32.6 pg 28.9-34.4 N MEAN CELL HGB CONCETRATION (test 34.0 G/DL 32.1-34.5 N code = MCHC) RED CELL DISTRIBUTION WIDTH (test SD 11.5-14.5 N code = RDW) PLATELET COUNT (test code = PLT) 134 K/mm3 150-450 L MEAN PLATELET VOLUME (test code = fL 7.0-9.6 H MPV) NEUTROPHIL % (test code = NT%) % 40-76 N IMMATURE GRANULOCYTE % (test code % 0.0-5.0 N = IG%) LYMPHOCYTE % (test code = LY%) % 20.5-51.1 N MONOCYTE % (test code = MO%) % 1.7-9.3 H EOSINOPHIL % (test code = EO%) % 0.0-6.0 N BASOPHIL % (test code = BA%) % 0.0-2.0 N NUCLEATED RBC % (test code = /100WBC% 0.0-1.0 N NRBC%) NEUTROPHIL # (test code = NT#) K/mm3 1.8-7.6 N IMMATURE GRANULOCYTE # (test code x10 3/uL 0.00-0.03 N = IG#) LYMPHOCYTE # (test code = LY#) K/mm3 0.6-3.0 N MONOCYTE # (test code = MO#) K/mm3 0.2-1.5 N EOSINOPHIL # (test code = EO#) K/mm3 0.0-0.4 N BASOPHIL # (test code = BA#) K/mm3 0.0-0.2 N NUCLEATED RBC # (test code = K/mm3 0.00-0.01 N NRBC#) MANUAL DIFF REQUIRED (test code = DIFF/SCN CRITERIA MDIFF) BASIC METABOLIC [id number] 12:34:00 Test Item Value Reference Range Interpretation [...] CA) 9.5 MG/DL 8.5-10.1 N HEPATIC FUNCTION [id number] 12:34:00 Test Item Value Reference Range Interpretation [...] 291 Unit/L 50-136 H code = ALKP) [id number] 12:34:00 Test Item Value Reference Range Interpretation Comments LIPASE (test code = LIP) 207 Unit/L 114-286 N BASIC METABOLIC [id number] 12:29:00 Test Item Value Reference Range Interpretation [...] CA) 9.5 MG/DL 8.5-10.1 N HEPATIC FUNCTION [id number] 12:29:00 Test Item Value Reference Range Interpretation [...] TOTAL (test Unit/L 50-136 code = ALKP) [id number] 12:29:00 Test Item Value Reference Range Interpretation Comments LIPASE (test code = LIP) 207 Unit/L 114-286 N CBC W/AUTO [id number] 12:17:00 Test Item Value Reference Range Interpretation [...] DIFF/SCN CRITERIA MDIFF) - CT ABD PELVIS [id number] 11:10:00 Name: LUBNA LEACH [facility] : 1965 Age/S: 54 / M [address] Unit #: [id number] Loc: [place] [address] Phys: Nito Golden MD Acct: [id number] Dis Date: Status: REG ER PHONE #: [phone] Exam Date: 11/22/2019 1053 FAX #: Reason: rlq pain EXAMS: CPT: [id number] CT ABD PELVIS W/CONT 23597 LOCATION: T18 EXAM: CT ABDOMEN AND PELVIS [...] RT(R)(CT) CTDI: DLP: Trnscb Date/Time: 11/22/2019 (1110) [id number] Orig Print D/T: S: 11/22/2019 (1113) PAGE 1 Signed ReportBASIC METABOLIC [id number] 10:40:00 Test Item Value Reference Range Interpretation [...] CA) 9.0 MG/DL 8.5-10.1 N HEPATIC FUNCTION [id number] 10:40:00 Test Item Value Reference Range Interpretation [...] 112 Unit/L 50-136 N code = ALKP) [id number] 10:40:00 Test Item Value Reference Range Interpretation Comments LIPASE (test code = LIP) 106 Unit/L 114-286 L UA RFLX MICR CULT IF [id number] 10:12:00 Test Item Value Reference Range Interpretation [...] URINE: CLEAN CATCHIndication for culture: Dysuria/FrequencyCBC W/AUTO [id number] 09:46:00 Test Item Value Reference Range Interpretation [...] CRITERIA MDIFF) UA RFLX MICR CULT IF [id number] 09:45:00 Test Item Value Reference Range Interpretation [...] OF URINE: CLEAN CATCHIndication for culture: Dysuria/FrequencyCHEM [id number] 17:47:57619Vvgqgscr HermannCHEM [id number] 17:47:0013 [facility]ann[facility] [id number] 17:47:000.95[facility] HermannCHEM PANEL 2019-10-19 17:47:33545Lhvcrtrb HermannCHEM [id number] 17:47:003.8[facility]annCHEM [id number] 17:47:0097[facility] HermannCHEM [id number] 17:47:0028[facility] HermannCHEM [id number] 17:47:009.1[facility]annCHEM [id number] 17:47:007.7[facility]annCHEM [id number] 17:47:003.4 [facility]annCHE[facility] [id number] 17:47:0070[facility] HermannCHEM PANEL 2019-10-19 17:47:0052[facility] HermannCHEM [id number] 17:47:37085Rvqxanwi HermannCHEM [id number] 17:47:000.6[facility] HermannCHEM [id number] 17:47:0090[facility] HermannCHEM [id number] 17:47:0012.8[facility] HermannCHEM [id number] 17:47:00 Test Item Value Reference Range Interpretation Comments B/C Ratio (test code = B/C Ratio) 14 1 6-25 [facility] HermannCHEM [id number] 17:47:004.3[facility] HermannCHEM PANEL 2019-10-19 17:47:00 Test Item Value Reference Range Interpretation Comments A/G Ratio (test code = A/G Ratio) 0.8 1 0.7-1.6 [facility] [id number] 17:47:0014.8[facility] HermannHEMATOLOGY 2019-10-19 17:47:005.21[facility] [id number] 17:47:0016.5[facility] LmsugasYLVCJHIOAY3060-86-84 17:47:0048.2[facility] JqyfgnlKTCJKPLIEP6796-85-06 17:47:0092.5[facility] RpocblcYIOSAZQDTN3257-16-63 17:47:00 Test Item Value Reference Range Interpretation Comments MCH (test code = MCH) 31.6 pg 27.0-31.0 [facility] XedrzbfWSPRSZGZDS1335-52-35 17:47:0034.2[facility] HermannHEMATOLOGY 2019-10-19 17:47:0013.0[facility] UqbznolZFFNKYYLLK1544-78-35 17:47:14239Fiewdbtd HgubjpuDCGDENJYSP8702-12-94 17:47:009.4[facility] BjwhgvtJTGOBAONGO6320-54-69 17:47:00Normal (10/19/19 11:47 AM)[facility] KyapqvzGRXIZGMDHU8177-96-33 17:47:00 Normal (10/19/19 11:47 AM)[facility] FxvfmtrICSAJJZBCN7783-99-11 17:47:0057.2 [facility] AfdajmfGOGHVXXNDY5430-16-34 17:47:0027.5[facility] HermannHEMATOLOGY 2019-10-19 17:47:0012.2[facility] CxdmtzzVDHYTJCBZL4582-25-94 17:47:001.6[facility] DusbqbkNPDDGPJPME4596-10-59 17:47:001.5[facility] WvzpktvGKONKHSKLX9390-57-63 17:47:008.5[facility] EorjmkaGICSWDPCXV0050-84-05 17:47:004.1[facility] BLEGNLGRQK4212-17-83 17:47:001.8[facility] HospitalZagiluxLXDXWCZYIN7819-50-84 17:47:000.2 [facility] HospitalOnrhiugQCAFSGKJWG6301-02-06 17:47:000.2[facility] ViewCBC W/AUTO DIFF 2019-10-14 23:05:00 Test Item Value [...] DIFF REQUIRED NO DIFF/SCN CRITERIA SLIDE R PATRICIO (test code = MDIFF) CONSISTA NT WITH AUTO DIFFERENTIAL. UA RFLX MICR CULT IF [id number] 22:39:00 Test Item Value Reference Range Interpretation [...] CATCHIndication for culture: Dysuria/Frequency- CT ABD PELVIS W/EIPG0032-04-64 22:30:00 Name: LUBNA LEACH [facility] : 1965 Age/S: 54 / M [id number] Unit #: [id number] Loc: [place] [address] Phys: Lino Ordaz MD Acct: [id number] Dis Date: Status: REG ER PHONE #: [phone] Exam Date: 10/14/2019 2222 FAX #: Reason: abdominal pain EXAMS: CPT: [id number] CT ABD PELVIS W/CONT 99637 EXAM: - CTABD PELVIS W/CONT HISTORY: Abdominal [...] 1 Signed Report (CONTINUED) Name: LUBNA LEACH [facility] : 1965 Age/S: 54 / M [address] Unit #: [id number] Loc: [place] [address] Phys: Lino Ordaz MD Acct: [id number] Dis Date: Status: REG ER PHONE #: [phone] Exam Date: 10/14/20192219 FAX #: Reason: abdominal pain EXAMS: CPT: [id number] CT ABD PELVIS W/CONT 58482 <Continued> at 2230 Reported and signed by: Choco Wells M.D. CC: Lino Ordaz MD; Nuha BARRAZA Technologist:Leeroy Maldonado, RT(R)(CT)(MRI) CTDI: DLP: Trnscb Date/Time: 10/14/2019 (2229) [email or web address] Orig Print D/T: S: 10/14/2019 (2232) PAGE 2 Signed Report UA RFLX MICR CULT IF [id number] 22:21:00 Test Item Value Reference Range Interpretation [...] CLEAN CATCHIndication for culture: Dysuria/Frequency COMPREHENSIVE METABOLIC [id number] 21:35:00 Test Item Value Reference Range Interpretation [...] code = ALKP) - XR CHEST 1 [id number] 21:30:00 Name: LUBNA LEACH [facility] : 1965 Age/S: 54 / M [address] Unit #: [id number] Loc: [place] [address] Phys: Lino Ordaz MD Acct: [id number] Dis Date: Status: REG ER PHONE #: [phone] Exam Date: 10/14/20192112 FAX #: Reason: liver failure EXAMS: CPT: [id number] XR CHEST 1 V 17524 Fluoro Time: DAP (Gy m2): Air Kerma [...] Unremarkable portable examination of the chest. at 2130 Reported and signed by: Torsten Carlos M.D. CC: Lino Ordaz MD; Nuha BARRAZA PAGE 1 Signed Report Name: LUBNA LEACH [facility] : 1965 Age/S: 54 / M [address] Unit #: [id number] Loc: [place] [address] Phys: Lino Ordaz MD Acct: [id number] Dis Date: Status: REG ER PHONE #: [phone] Date: 10/14/2019 2113 FAX #: Reason: liver failure EXAMS: CPT: [id number] XR CHEST 1 V 30432 Fluoro Time: DAP (Gy m2): Air Kerma (mGy): <Continued> Technologist: Farooq Lang, RT(R)(CT) Trnscb Date/Time: 10/14/2019 (2129) [email or web address] Orig Print D/T: S: 10/14/2019 (2133) PAGE 2 Signed ReportCBC W/AUTO [id number] 21:25:00 Test Item Value Reference Range Interpretation [...] code = DIFF/SCN CRITERIA MDIFF) COMPREHENSIVE METABOLIC [id number] 21:22:00 Test Item Value Reference Range Interpretation [...] Unit/L 50-136 code = ALKP) CBC W/AUTO [id number] 13:44:00 Test Item Value Reference Range Interpretation [...] AUTO DIFFERENTIAL. UA RFLX MICR CULT IF [id number] 13:13:00 Test Item Value Reference Range Interpretation [...] URINE: CLEAN CATCHIndication for culture: Dysuria/FrequencyBASIC METABOLIC [id number] 13:12:00 Test Item Value Reference Range Interpretation [...] 8.5-10.1 N UA RFLX MICR CULT IF [id number] 13:12:00 Test Item Value Reference Range Interpretation [...] URINE: CLEAN CATCHIndication for culture: Dysuria/FrequencyCBC W/AUTO [id number] 12:59:00 Test Item Value Reference Range Interpretation [...] DIFF/SCN CRITERIA MDIFF) - CT HEAD/BRAIN W/O [id number] 12:55:00 Name: LUBNA LEACH [facility] : 1965 Age/S: 54 / M [address] Unit #: [id number] Loc: [place] [address] Phys: Nito Golden MD Acct: [id number] Dis Date: Status: REG ER PHONE #: [phone] Exam Date: 08/08/2019 1230 FAX #: Reason: headache EXAMS: CPT: [id number] CT HEAD/BRAIN W/O CONT 11690 Site ID: [id number] CT head TECHNIQUE: CT [...] CT. IMPRESSION: No acute intracranial abnormality at 9612 Reported and signed by: Danielle Verduzco M.D. CC: Nito Golden MD Technologist:Refugio rAmenta, RT(R)(CT) CTDI: DLP: Trnscb Date/Time: 08/08/2019 (2196) [email or web address] Orig Print D/T: S: 08/08/2019 (0069) PAGE 1 Signed ReportTROPONIN I RAPID 2019-07-01 00:13:00 Test Item Value Reference Range Interpretation Comments TROPONIN I RAPID 0.00 ng/mL 0.00-0.08 N - The use o f serial (test code = sampling and te sting TROPIRAP) protocol is a recommended pra ctice- An elevated tro ponin level alone is often not sufficient for diagnosis of my ocardial infarction. HEPATIC FUNCTION [id number] 00:11:00 Test Item Value Reference Range Interpretation [...] code = 27 Unit/L 26-192 N CK) [id number] 00:11:00 Test Item Value Reference Range Interpretation Comments LIPASE (test code = LIP) 230 Unit/L 114-286 N NT PRO-BRAIN NATRIURETIC [id number] 00:11:00 Test Item Value Reference Range Interpretation Comments NT PRO-BRAIN NATRIURETIC PEPTI 137 PG/ML 0-100 H (test code = PROBNP) CHEMISTRY 8 [id number] 00:08:00 Test Item Value Reference Range Interpretation [...] 56-130 N code = GFRBED) CHEMISTRY 8 [id number] 00:08:00 Test Item Value Reference Range Interpretation [...] code = GFRBED) - XR CHEST 1 [id number] 00:03:00 Name: LUBNA LEACH [facility] : 1965 Age/S: 54 / M [address] Unit #: [id number] Loc: [place] [address] Phys: Jethro Rosenthal MD Acct: [id number] Dis Date: Status: REG ER PHONE #: [phone] Exam Date: 06/30/2019 0000 FAX #: Reason: SOB EXAMS: CPT: [id number] XR CHEST 1 V 55599 Fluoro Time: DAP (Gy m2): Air Kerma [...] PAGE 1 Signed Report Name: LUBNA LEACH [place] : 1965 Age/S: 54 / M [address]: [id number] Loc: [place] [address] Phys: Jethro Rosenthal MD Acct: [id number] Dis Date: Status:REG ER PHONE #: [phone] Exam Date: 06/30/2019 0000 FAX #: Reason: SOB EXAMS: CPT: [id number] XR CHEST 1 V 50633 Fluoro Time: DAP (Gy m2): Air Kerma (mGy): <Continued> Technologist: CHILO Melgoza RVS Trnscb Date/Time: 07/01/2019 (0003) [email or web address] Orig Print D/T: S: 07/01/2019 (0007) PAGE 2 Signed ReportCBC W/O [id number] 23:55:00 Test Item Value Reference Range Interpretation [...] 7.0-9.6 H MPV) - XR CHEST 1 [id number] 11:34:00 Name: LUBNA LEACH [facility] : 1965 Age/S: 54 / M [address] Unit #: [id number] Loc: [place] [address] Phys: Tejas Feliciano MD Acct: [id number] Dis Date: Status: REG ER PHONE #: [phone] Exam Date: 06/26/2019 1105 FAX #: Reason: sore throat, dyspnea EXAMS: CPT: [id number] XR CHEST 1 V 23049 Fluoro Time: DAP (Gy m2): Air Kerma [...] PAGE 1 Signed Report Name: LUBNA LEACH [facility] : 1965 Age/S: 54 / M [address] Unit #: [id number] Loc: [place] [address] Phys: Tejas Feliciaon MD Acct: [id number] Dis Date: Status: REG ER PHONE #: [phone] Exam Date: 06/26/2019 1101 FAX #: Reason: sore throat, dyspnea EXAMS: CPT: [id number] XR CHEST 1 V 22304 Fluoro Time: DAP (Gy m2): Air Kerma (mGy): <Continued> Technologist: Refugio Armenta, RT(R)(CT) Trnscb Date/Time: 06/26/2019 (1138) [email or web address] Orig Print D/T: S: 06/26/2019 (8145) PAGE 2 Signed ReportCOMPREHENSIVE METABOLIC [id number] 11:27:00 Test Item Value Reference Range Interpretation [...] 50-136 H TOTAL (test code = ALKP) [id number] 11:27:00 Test Item Value Reference Range Interpretation Comments LIPASE (test code = LIP) 88 Unit/L 114-286 L CBC W/AUTO [id number] 11:09:00 Test Item Value Reference Range Interpretation [...] = NO DIFF/SCN CRITERIA MDIFF) ANTINUCLEAR ANTIBODIES [id number] 02:42:00 Test Item Value Reference Range Interpretation Comments SEAN DIRECT (test code Negative () = ANADIR) Neg ative <1:80 Borderline 1:8 0 Positive >1:80Performed At: [facility] [address] [id number] ivan Womack MD Ph:[phone] ACUTE HEPATITIS [id number] 02:42:00 Test Item Value Reference Range Interpretation Comments AB HEPATITIS A IGM NON REACTIVE NON REACT. Testing d one at (test code = INDEX [facility] [place] [facility] HAVMAB) [facility] [address] [place] [address]. [place], [place] [address] AB HEPATITIS B <3.1 mIU/mL Immunity>9.9 A Status of SURFACE (test code Immunity = HBSAB) Anti-H Bs Level --- I ncon sistent with Immunity 0.0 - 9.9Consistent w ith Immunity >9.9Performed A t: HD [facility] [address] [place], [place] [id number] Kyle L MD Ph:[phone] ST PERFOR[facility] AT [facility] [address] [place], [place] [address] AG HEPATITIS B NON REACTIVE NonReactive Testing done at SURFACE (test code INDEX [facility] = HBSAG) [facility] [address] [place] [address]. [place] [address] AB HEPATITIS B NON REACTIVE NON REACT. Testing done at CORE IGM (test INDEX CLEAR [place] RE GIONAL code = HBCMAB) [facility] [address] [place] [id number] AB HEPATITIS C REACTIVE INDEX NON REACT. A Testing don e at (test code = CLEAR [place] ONAL HCVAB) [facility] [address] [place] [id number] AB [id number] 02:42:00 Test Item Value Reference Range Interpretation Comments AB <20.0 Units 0.0-20.0 ANTI-MITOCHONDRIAL Ne gative 0.0 - (test code = 20.0 MITOAB) Equi vocal 20.1 - 24.9 Positive >24.9Mitochondr ial (M2) Antibodies are found in 90-96% ofpatien ts with primary biliary cirrhosis.Perfo rmed At: [facility] [id number] ra Ev GOMEZ Ph:[phone] ANTINUCLEAR ANTIBODIES [id number] 16:45:00 Test Item Value Reference Range Interpretation Comments SEAN DIRECT (test code Negative () = ANADIR) Neg ative <1:80 Borderline 1:8 0 Positive >1:80Performed At: [facility] [id number] ivan Womack MD Ph:[phone] ACUTE HEPATITIS [id number] 16:45:00 Test Item Value Reference Range Interpretation Comments AB HEPATITIS A IGM NON REACTIVE NON REACT. Testing d one at (test code = INDEX [place] [place] [facility] HAVMAB) [facility] [address] [place] [address] AB HEPATITIS B <3.1 mIU/mL Immunity>9.9 A Status of SURFACE (test code Immunity = HBSAB) Anti-H Bs Level --- I ncon sistent with Immunity 0.0 - 9.9Consistent w ith Immunity >9.9Performed A t: HD [place] [address] [place], [place] [id number] Kyle L MD Ph:[phone] ST PERFORMED AT [facility] [address] [place], [place] [address] AG HEPATITIS B NON REACTIVE NonReactive Testing done at SURFACE (test code INDEX [facility] = HBSAG) [facility] [address] [place] [address] AB HEPATITIS B NON REACTIVE NON REACT. Testing done at CORE IGM (test INDEX [facility] G[facility] code = HBCMAB) [facility] [address] [place] [address] AB HEPATITIS C REACTIVE INDEX NON REACT. A Testing don e at (test code = CLE[facility] [place] [facility] HCVAB) [facility] [address] [place] [address] AB [id number] 16:45:00 Test Item Value Reference Range Interpretation Comments AB ANTI-MITOCHONDRIAL (test code = Units 0.0-20.0 MITOAB) [id number] 21:51:00 Test Item Value Reference Range Interpretation Comments GLUBED (test code = GLUBED) 168 mg/dL 70-110 H [id number] 15:58:00 Test Item Value Reference Range Interpretation Comments GLUBED (test code = GLUBED) 168 mg/dL 70-110 H [id number] 07:22:00 Test Item Value Reference Range Interpretation Comments GLUBED (test code = GLUBED) 113 mg/dL 70-110 H CBC W/AUTO [id number] 06:46:00 Test Item Value Reference Range Interpretation [...] BA#) 0.1 K/mm3 0.0-0.2 N COMPREHENSIVE METABOLIC [id number] 06:12:00 Test Item Value Reference Range Interpretation [...] 158 Units/L 50.0-136.0 H code = ALKP) [id number] 06:12:00 Test Item Value Reference Range Interpretation Comments MAGNESIUM (test code = MAG) 2.0 mg/dl 1.8-2.4 N [id number] 23:47:00 Test Item Value Reference Range Interpretation Comments GLUBED (test code = GLUBED) 179 mg/dL 70-110 H ANTINUCLEAR ANTIBODIES [id number] 16:47:00 Test Item Value Reference Range Interpretation Comments SEAN DIRECT (test code = ANADIR) NEGATIVE ACUTE HEPATITIS [id number] 16:47:00 Test Item Value Reference Range Interpretation Comments AB HEPATITIS A IGM NON REACTIVE NON REACT. Testing d one at (test code = INDEX [place] [place] [facility] HAVMAB) [facility] [address] [place] [address]. [facility] [place] [address] AB HEPATITIS B mIU/mL Immune >9.9 SURFACE (test code = HBSAB) AG HEPATITIS B NON REACTIVE NonReactive Testing done at SURFACE (test code INDEX [facility] = HBSAG) [facility] [address] [place] [address]. [place] [address] AB HEPATITIS B NON REACTIVE NON REACT. Testing done at CORE IGM (test INDEX [facility] G[facility]AL code = HBCMAB) [facility] [address] [place] [address]. [place] [address] AB HEPATITIS C REACTIVE INDEX NON REACT. A Testing don e at (test code = CLE[facility] [place] [facility] HCVAB) [facility] [address] [place] [address]. [place] [address] AB [id number] 16:47:00 Test Item Value Reference Range Interpretation Comments AB ANTI-MITOCHONDRIAL (test code = Units 0.0-20.0 MITOAB) AB HEPATITIS A [id number] 16:41:00 Test Item Value Reference Range Interpretation Comments AB HEPATITIS A IGM (test NON REACTIVE INDEX NON REACT. code = HAVMAB) AG HEPATITIS B [id number] 16:41:00 Test Item Value Reference Range Interpretation Comments AG HEPATITIS B SURFACE NON REACTIVE INDEX NonReactive (test code = HBSAG) AB HEPATITIS B CORE [id number] 16:41:00 Test Item Value Reference Range Interpretation Comments AB HEPATITIS B CORE IGM NON REACTIVE INDEX NON REACT. (test code = HBCMAB) AB HEPATITIS [id number] 16:41:00 Test Item Value Reference Range Interpretation Comments AB HEPATITIS C (test code = REACTIVE INDEX NON REACT. A HCVAB) [id number] 16:40:00 Test Item Value Reference Range Interpretation Comments GLUBED (test code = GLUBED) 167 mg/dL 70-110 H [id number] 13:52:00 Test Item Value Reference Range Interpretation Comments GLUBED (test code = GLUBED) 139 mg/dL 70-110 H VITAMIN [id number] 13:03:00 Test Item Value Reference Range Interpretation Comments VITAMIN B12 (test code = VITB12) 697 pg/mL 193-986 N THYROID STIMULATING [id number] 13:03:00 Test Item Value Reference Range Interpretation Comments THYROID STIMULATING 1.83 IU/ML 0.47-5.01 N Result i s in HORMONE (test code = Interna tional TSH) Units/millilite r [id number] 12:40:00 Test Item Value Reference Range Interpretation Comments HGBA1C% (test code = HGBA1C%) 6.4 %A1C 4.8-6.0 H ESTIMATED AVERAGE GLUCOSE (test 137 MG/DL code = EAG) - US ABDOMEN [id number] 12:20:00 FAX: Beto Urias [phone] [place]: St: [facility] FAX: Leslie Larsen [phone] Name: HAYLEELUBNA ORTEGA [facility] : 1965 Age/S: 54/M [address] [facility] Unit #: [id number] Loc: [place], [place] Phys: Gael Garcia [address] Acct: [id number] [id number] Dis Date: Status: ADM IN PHONE #: [phone] Exam Date: 05/16/2019 1046 FAX #: [phone] Reason: Elevated LFT Report Has Been Amended EXAMS: CPT CODE: [id number] US ABDOMEN LTD 81424 Addendum - 05/16/2019 SIGNED 05/16/2019 ADDENDUM: [id number] US/USABDLTD Addendum: A typographical air occurred described [...] 1 Signed Report (CONTINUED) FAX: Beto Urias [phone] [place]: St: [facility] FAX: Gael Larsen [phone] Name: LUBNA LEACH [facility] : 1965 Age/S: 54/M [address] [facility] Unit #: [id number] Loc: [place], [place] Phys: Gael Garcia [address] Acct: [id number] Dis Date: Status: ADM IN PHONE #: [phone] Exam Date: 05/16/2019 1046 FAX #: [phone] Reason: Elevated LFT Report Has Been Amended EXAMS: CPT CODE: [id number] US ABDOMEN LTD [address]27[address] <Continued> Impression: No acute abnormality in the right upper quadrant. Liver size slightly enlarged with fatty changes. CT shows slightly nonsmooth margins suggesting the possibility of cirrhosis, as well. No ascites recognized, currently. Location: [facility] Electronically Signed by Stan Smith on 05/16/2019 at 1108 Reported and signed by: Torsten Smith M.D. CC: Beto Boland MD; Gael BARRAZA Technologist: CARLOS ALBERTO HU Trnksrd Date/Time/By: 05/16/2019 (7654) : By: [facility] PAGE 2 Signed Report FAX: Beto Urias [phone] [place]: St: ADM FAX: Gael Larsen [phone] Name: LUBNA LEACH [facility] : 1965 Age/S: 54/M [address] Unit #: [id number] Loc: [place], [place] Phys: Gael Garcia [address] Acct: [id number] Dis Date: Status: ADM IN PHONE #: [phone] Exam Date: 05/16/2019 1046 FAX #: [phone] Reason: Elevated LFT Report Has Been Amended EXAMS: CPT CODE: [id number] US ABDOMEN LTD [address] <Continued> Orig Print D/T: S: 05/16/2019 (1112) PAGE 3 Signed Report- US ABDOMEN [id number] 11:08:00 FAX: Shobha MonterrosoBolandBeto santosn [phone] [place]: St: ADM FAX: Leslie Larsen [phone] Name: LUBNA LEACH [facility] : 1965 Age/S: 54/M [address] [facility] Unit #: [id number] [place]: [place] Phys: Gael Garcia [address] Acct: [id number] Dis Date: Status: ADM IN PHONE #: [phone] Exam Date: 05/16/2019 1046 FAX #: [phone] Reason: Elevated LFT EXAMS: CPT CODE: [id number] ABDOMEN LTD [address] ULTRASOUND:- US ABDOMEN LTD History: Elevated liver [...] Technologist: CARLOS ALBERTO HU Trnscrd Date/Time/By: 05/16/2019 (8929) : By: [facility] PAGE 1 Signed Report FAX: Beto Urias [phone] [place]: St: ADM FAX: Gael Larsen [phone] Name: LUBNA LEACH [facility] : 1965 Age/S: 54/M [address] [facility] Unit #: [id number] Loc: [place], [place] Phys: Gael Garcia [address] Acct: [id number] Dis Date: Status: ADM IN PHONE #: [phone] Exam Date: 05/16/2019 1046 FAX #: [phone] Reason: Elevated LFT EXAMS: CPT CODE: [id number] US ABDOMEN LTD [address] <Continued> Orig Print D/T: S: 05/16/2019 (0577) PAGE 2 Signed [id number] 07:18:00 Test Item Value Reference Range Interpretation Comments AMMONIA (test code = AMM) 9.5 MCMOL/L 11.0-32.0 L No sample received in the lab. Please collect if deemednecessary.Thank you!Lab DRUGS OF ABUSE SCREEN [id number] 06:29:00 Test Item Value Reference Interpretation Comments [...] [place]) concentrati on: 300 ng/mL CBC W/MANUAL [id number] 05:08:00 Test Item Value Reference Range Interpretation [...] MORPHOLOGY (test code NORMAL = PLTMORPH) PROTHROMBIN [id number] 01:10:00 Test Item Value Reference Range Interpretation Comments PROTHROMBIN TIME 12.6 SECONDS 9.9-12.8 N PATIENT (test code = PTP) INTERNATIONAL NORMAL 1.1 0.89-1.14 N THE INR IS TO BE USED RATIO (test code = ONLY FOR MONITORING INR) ORAL ANTICOAGULANTTH ERAPY. THE FOLLOWING A RE SUGGESTED RANGE S FROM [facility] LEGE OF CHEST PHYSICIANS:ANGELA CATION INR VALUEPROPHYLAXI S OF VENOUS THROMBOS IS (ORTHOPEDIC JACQUES TRAVON) 2.0 - 3.0PROP HYLAXIS OF VENOUS THROM BOSIS (OTHER THAN HIG H-RISK SURGERY) 2.0 - 3.0TRE ATMENT OF DEEP VEIN THROMBOSIS OR PULMONARY EMBOL ISM 2.0 - 3.0PREV ENTION OF SYSTEMIC EMB OLISM TISSUE HEART VA LVES 2.0 - 3.0 AC [place] MYOCARDIAL INFA RCTION (TO PREVENT SYSTEMIC EMBOLI [...] 3 .5 Specimen comments: Clean CatchTHROMBOPLASTIN TIME [id number] 01:10:00 Test Item Value Reference Range Interpretation Comments THROMBOPLASTIN TIME 33.50 SECONDS 25.86-36.07 N [facility] [facility] PARTIAL (test code = Therape utic Range - PTT) APTT of 55.8-85 .4 secondscorrelat es with plasma heparin concentration o f 0.2-0.4 u/mL Ne w range effective - Specimen comments: Clean CatchBASIC METABOLIC [id number] 01:09:00 Test Item Value Reference Range Interpretation [...] 8.0 mg/dl 8.0-10.5 N Specimen comments: Clean Coherent LabsHEPATIC FUNCTION PANEL [id number] 01:09:00 Test Item Value Reference Range Interpretation [...] H code = ALKP) Specimen comments: Clean [id number] 01:09:00 Test Item Value Reference Range Interpretation Comments LIPASE (test code = 560 Units/L 65.0-230.0 H 2+ LIPEM IC SAMPLE. LIP) Specimen comments: Clean CatchB-TYPE NATRIURETIC [id number] 01:09:00 Test Item Value Reference Range Interpretation Comments B-TYPE NATRIURETIC PEPTIDE (test 33 PG/ML 5-100 N code = BNP) Specimen comments: Clean Coherent LabsBASIC METABOLIC [id number] 00:59:00 Test Item Value Reference Range Interpretation [...] N Specimen comments: Clean CatchHEPATIC FUNCTION PANEL [id number] 00:59:00 Test Item Value Reference Range Interpretation [...] H code = ALKP) Specimen comments: Clean [id number] 00:59:00 Test Item Value Reference Range Interpretation Comments LIPASE (test code = 560 Units/L 65.0-230.0 H 2+ LIPEM IC SAMPLE. LIP) Specimen comments: Clean CatchB-TYPE NATRIURETIC [id number] 00:59:00 Test Item Value Reference Range Interpretation Comments B-TYPE NATRIURETIC PEPTIDE (test code PG/ML 5-100 = BNP) Specimen comments: Clean CatchBASIC METABOLIC [id number] 00:54:00 Test Item Value Reference Range Interpretation [...] = CA) mg/dl 8.0-10.5 Specimen comments: Clean CatchHEPATIC FUNCTION PANEL [id number] 00:54:00 Test Item Value Reference Range Interpretation [...] 50.0-136.0 code = ALKP) Specimen comments: Clean [id number] 00:54:00 Test Item Value Reference Range Interpretation Comments LIPASE (test code = LIP) Units/L 65.0-230.0 Specimen comments: Clean CatchB-TYPE NATRIURETIC [id number] 00:54:00 Test Item Value Reference Range Interpretation Comments B-TYPE NATRIURETIC PEPTIDE (test code PG/ML 5-100 = BNP) Specimen comments: Clean CatchURINALYSIS [id number] 00:52:00 Test Item Value Reference Range Interpretation [...] NONE BACU) Specimen comments: Clean CatchCBC W/MANUAL [id number] 00:46:00 Test Item Value Reference Range Interpretation [...] code = LYMPH) % 20-40 CBC W/MANUAL [id number] 00:46:00 Test Item Value Reference Range Interpretation [...] (test code = LYMPH) % 20-40 URINALYSIS [id number] 00:45:00 Test Item Value Reference Range Interpretation [...] comments: Clean Catch- CT ABD PELVIS W/O [id number] 23:43:00 FAX: Nathan Prince MD [place]: St: REG Name: LUBNA LEACH [facility] : 1965 Age/S: 54/M [address] [facility] Unit: [id number] Loc: [address] [place]: [place] [address] Acct: [id number] Dis Date: Status: REG ER PHONE #: [phone] Exam Date: 05/15/2019 2316 FAX #: [phone] Reason: ruq pain EXAMS: CPT CODE: [id number] CT ABD PELVIS W/O CONT 58275 CLINICAL HISTORY: Right upper quadrant abdominal pain,shortness [...] Signed Report (CONTINUED) FAX: Nathan Prince MD [place]: St: REG Name: LUBNA LEACH [facility] : 1965 Age/S: 54/M [address] [facility] Unit: [id number] Loc: E.ERS2 [place], [place]: [place] [address] Acct: [id number] Dis Date: Status: REG ER PHONE #: [phone] Exam Date: 05/15/2019 2316 FAX #: [phone] Reason: ruq pain EXAMS: CPT CODE: [id number] CT ABD PELVIS W/O CONT 18479 <Continued> This exam was performed according to ourdepartmental dose-optimization program, which includes automated exposure control, adjustment of the mA and/or kV according to patient size and/or use of iterative reconstruction technique at 2343 Reported and signed by: Lennox Purvis M.D. CC: Nathan Prince MD Technologist: STANTON LIZ Trnscrd Dt/Tm: 05/15/2019 (4862) t.[email or web address] Orig Print D/T: S: 05/15/2019 (3196 PAGE 2 Signed Report- XR CHEST 2 [id number] 23:29:00 FAX: Nathan Prince MD [place]: St: REG Name: LUBNA LEACH [facility] : 1965 Age/S: 54/M [address] [facility] Unit#: [id number] Loc: [address] [place]: [place] [address] Acct: [id number] Dis Date: Status: REG ER PHONE #: [phone] Exam Date: 05/15/20192319 FAX #: [phone] Reason: sob EXAMS: CPT CODE: [id number] XR CHEST 2 V 29380 EXAM: - XR CHEST 2 V HISTORY: Shortness of breath. COMPARISON: April 17, 2018. FINDINGS: PA and lateral view of the chest is provided. Heart size and vascularity are within normal limits. There is no focal consolidation. No effusion, pneumothorax, or acute osseous abnormality. IMPRESSION: No consolidation or pleural effusion. at 8406 Reported and signed by: Choco Wells M.D. CC: Nathan Prince MD Technologist: TOO JIMENEZ Trnscrd Date/Time/By: 05/15/2019 (9469) : By: [email or web address] PAGE 1 Signed Report FAX: Nathan Prince MD [place]: St: REG -- Name: LUBNA LEACH [facility] : 1965 Age/S: 54/M [address] [facility] Unit #: [id number] Loc: [address] Phys: [place] [address] Acct: [id number] Dis Date: Status: REG ER PHONE #: [phone] Exam Date: 05/15/20192319 FAX #: [phone] Reason: sob EXAMS: CPT CODE: [id number] XR CHEST 2 V 16579 <Continued> Orig Print D/T: S: 05/15/2019 (1906) PAGE 2 Signed [id number] 09:04:00Negative *NA*(05/15/19 4:04 AM) [facility] [id number] 14:48:000.96[facility]annIM[facility]UNOLOGY 2019-05-14 14:48:00Negative *NA*(05/14/19 9:48 AM)[facility] 2019-05-14 14:48:00Negative *NA*(05/14/19 9:48 AM)[facility] 2019-05-14 14:48:00Negative *NA*(05/14/19 9:48 AM)[facility] 2019-05-14 14:48:00Positive *ABN*(05/14/19 9:48 AM)[facility]annT[facility] 2019-05-14 14:48:0048.3[facility]annCHEM [id number] 09:25:002.7[facility]annCHE[facility] [id number] 09:25:002.0[facility]annCHE[facility] [id number] 09:25:0092[facility]annCHE[facility] [id number] 09:25:001.8[facility]annCHE[facility] [id number] 09:25:0085[facility]annCHE[facility] [id number] 09:25:62126 [facility]CHE[facility] [id number] 09:25:000.93[facility]annCHE[facility] PANEL 2019-05-14 09:25:0015[facility]annCHEM [id number] 09:25:0086[facility]annCHEM [id number] 09:25:21103Azzyuktv HermannCHEM DDFLW9090-27-00 09:25:002.8[facility] SFTPM3734-22-50 09:25:0019[facility]annCHE[facility] TRLCK5182-15-79 09:25:006.5[facility] WTZVJ0878-59-87 09:25:008.1 [facility] OEGBW4732-28-64 09:25:004.2[facility]ann[facility] PANEL 2019-05-14 09:25:34777Cadkhuqj HermannCHEM OFSKC9898-36-35 09:25:63915Jkhkhveb HermannCHEM KPOYW5657-68-98 09:25:003.7[facility] YLMGL2349-81-04 09:25:00 Test Item Value Reference Range Interpretation Comments A/G Ratio (test code = A/G Ratio) 0.8 1 0.7-1.6 [facility] [id number] 09:25:00 Test Item Value Reference Range Interpretation Comments B/C Ratio (test code = B/C Ratio) 16 1 6-25 [facility] ETUAJ1118-55-34 09:25:0014.2[facility]annHEMATOLOGY 2019-05-14 09:25:0010.4[facility] TefgdclFQAINNBDKH2270-66-88 09:25:005.83[facility] QhtfhtyQLEXATYZYM0386-44-42 09:25:0035.1[facility] CjovfiyUPTCDQNIYG0822-65-32 09:25:0090.5[facility] RjofggeDKZAEBNDOF2265-34-34 09:25:0018.5[facility] RTHBRKMRBQ4985-83-95 09:25:0052.7[facility] TttlpmyLNMFCYIFDE9509-07-56 09:25:00 5.1[facility] TevhhjrAKRNFQYTNC4541-68-05 09:25:0065[facility]annHEMATOLOGY 2019-05-14 09:25:0013.2[facility] QwwrcutAOTVSNAFGJ0779-52-08 09:25:00 Test Item Value Reference Range Interpretation Comments MCH (test code = MCH) 31.8 pg 27.0-31.0 [facility] QbmiqpySTHECLGMDT6262-19-04 09:25:0012.5[facility]annHEMATOLOGY 2019-05-14 09:25:000.4[facility] VssaoofFZRJJWAGIV3293-43-40 09:25:000.6[facility] ApxmrctDMOXPIJHHH1033-07-51 09:25:000.6[facility] MpyambdSMDBBXGOVD3236-78-42 09:25:004.0[facility] IpmflfyVQFPUFWQHT2749-03-21 09:25:008.3[facility] GSSNCUXZRS1703-52-93 09:25:0078.6[facility] YOGHG7544-01-56 02:45:003[facility] WCQHX5184-95-60 02:45:002[facility] URINE AND YNUYO1420-90-06 02:45:00Negative (05/13/19 9:45 PM)[facility] SONIC4295-51-95 02:45:00Not Indicated *NA*(05/13/19 9:45 PM)[facility] URINE AND YPYWZ6775-35-64 02:45:00Negative *NA*(05/13/19 9:45 PM)[facility] URINE AND MAJMY3272-82-94 02:45:00Negative (05/13/19 9:45 PM)[facility] ABUFT3593-06-22 02:45:00Negative (05/13/19 9:45 PM)[facility] RETQB9623-08-35 02:45:00 Test Item Value Reference Range Interpretation Comments UA pH (test code = UA pH) 5.0 1 5.0-8.0 [facility] OXRLU6286-23-79 02:45:004.0[facility] MAVCL0992-19-69 02:45:00Clear (05/13/19 9:45 PM)[facility] STOOL 2019-05-14 02:45:00Amber *ABN*(05/13/19 9:45 PM)[facility] STOOL 2019-05-14 02:45:00 Test Item Value Reference Range Interpretation Comments UA Spec Grav (test code = UA Spec 1.016 1 Grav) [facility] NSSES0442-51-22 02:42:001.7[facility] HermannDRUG SCREEN 2019-05-13 10:10:00Negative *NA*(05/13/19 5:10 [...] [facility]UR[facility] STOOL 2019-05-13 10:10:001[facility] CDWUT2584-79-25 10:10:002[facility] SVIRP3832-49-65 10:10:00Negative *NA*(05/13/19 5:10 AM)[facility] VKTLV8540-87-04 10:10:00Negative (05/13/19 5:10 AM)[facility] WNLSJ4001-27-17 10:10:004.0[facility] STOOL 2019-05-13 10:10:00 Test Item Value Reference Range Interpretation Comments UA Spec Grav (test code = UA Spec 1.048 1 Grav) [facility] [id number] 10:10:00 Test Item Value Reference Range Interpretation Comments UA pH (test code = UA pH) 5.0 1 5.0-8.0 [facility] LYODM7609-05-03 10:10:00Amber *ABN*(05/13/19 5:10 AM) [facility] GYRXE9775-62-26 10:10:00Clear (05/13/19 5:10 AM)[facility] ICACR9231-56-60 03:59:0096[facility]annCHE[facility] SHDIV4326-22-04 03:59:000.90[facility]annCHE[facility] TJGPW7758-47-06 03:59:65238Ojbepjqg HermannCHEM GREQX0587-11-18 03:59:0013[facility] KBKQW5913-96-41 03:59:008.8 [facility] BXAGM0841-02-12 03:59:70236Lhfrmkov HermannCHEM PANEL 2019-05-13 03:59:004.1[facility]CHE[facility] ALVNT4522-65-89 03:59:0099[facility]annCHE[facility] CSFMY7779-97-44 03:59:0021[facility]CHE[facility] IBZOT1870-65-03 03:59:0014.1[facility]annCARDIAC ZVBQSIJ0421-37-30 22:33:00<0.02[facility]annCHE[facility] XKIAX0817-44-43 22:33:16621Fpscqlvj HermannCHEM ETMPS4529-73-12 22:33:86160Fdcgtvrt HermannCHEM DOHOT5399-55-90 22:33:0080[facility]CHE[facility] PMIMJ6427-44-59 22:33:001.04[facility]CHE[facility] VJDOZ4367-39-93 22:33:004.2 [facility] NQCSY7389-85-88 22:33:61303Tmieqmpb HermannCHEM PANEL 2019-05-12 22:33:008.8[facility]annCHE[facility] MYDVB1814-49-90 22:33:0021[facility]CHE[facility] GVIDF5622-39-14 22:33:0099[facility]annCHE[facility] FEEWG4203-01-76 22:33:08034Rxcxatch HermannCHEM KMWHW6040-58-09 22:33:003.3[facility]CHE[facility] QDSPS5916-20-88 22:33:87253Ivnjzlhi HermannCHEM VQHXO4348-03-56 22:33:0013 [facility] MLAGR1222-59-25 22:33:001.3[facility]annCHEM PANEL 2019-05-12 22:33:007.7[facility]annCHE[facility] YUABA1117-08-85 22:33:0094[facility]CHE[facility] ERYEJ3632-57-86 22:33:0015.2[facility]CHE[facility] TNGBS4111-87-92 22:33:00 Test Item Value Reference Range Interpretation Comments B/C Ratio (test code = B/C Ratio) 12 1 6-25 [facility] PEVXO7807-53-59 22:33:004.4[facility]annCHEM PANEL 2019-05-12 22:33:00 Test Item Value Reference Range Interpretation Comments A/G Ratio (test code = A/G Ratio) 0.8 1 0.7-1.6 [facility]XKLAQOYYZ7437-95-24 22:33:00 Test Item Value Reference Range Interpretation Comments INR (test code = INR) 1.03 1 0.85-1.17 [facility]mdLWLYYSZRPY7853-12-40 22:33:00 Test Item Value Reference Range Interpretation Comments PT (test code = PT) 13.3 s 12.0-14.7 [facility] ZypglaxLLDEYNRJSL6174-98-34 22:33:00 Test Item Value Reference Range Interpretation Comments PTT (test code = PTT) 39.2 s 22.9-35.8 [facility] SirsuycGXCCGOBFYA5643-13-65 22:33:0013.4[facility]annHEMATOLOGY 2019-05-12 22:33:0098[facility] DjoyihjMDDSSOKKWY6146-94-42 22:33:009.3[facility] JntyyqfOBTBEVVUXQ4621-10-49 22:33:0091.0[facility] AqxgogoBUQVARJDDL0447-85-36 22:33:00 Test Item Value Reference Range Interpretation Comments MCH (test code = MCH) 32.1 pg 27.0-31.0 [facility] KlvvfcoEUJSSMYSYK2639-76-32 22:33:0035.3[facility]annHEMATOLOGY 2019-05-12 22:33:009.0[facility] DfvzdasONSIJSVLMV8769-51-64 22:33:006.03[facility] BdopktaTBRZJZKAZA3655-20-13 22:33:0019.4[facility] HmbzidiIEQBIEWHER7323-60-77 22:33:0054.8[facility] StjupzgSODHYZKHVX8868-75-61 22:33:006.8[facility] WMOPQHHZDW7399-01-92 22:33:008.0[facility] DdzcexfRQFEBQHDAR2679-50-63 22:33:000.4 [facility] CbsdbwsHGDUFCNFMF0612-50-80 22:33:003.4[facility]annHEMATOLOGY 2019-05-12 22:33:000.6[facility] OaqsfpnVGFIHQTJWM0612-75-00 22:33:000.3[facility] PqnwswdXXBCKCFITL0004-72-65 22:33:0089.4[facility] AclopvqEBBXNDXWOZ3620-54-17 22:33:00<2 (05/12/19 5:33 PM)[facility] FstwbruZQPXXHNAYL8521-19-20 22:33:00 <0.003[facility] RupwnzyZNQLIRUQGH9050-38-78 22:33:00<3[facility] CHACENWFHH8366-25-58 22:33:00<1.7[facility]
--- NOTE | 2020-10-01 13:18 | ER ---
Nurse's Notes [facility] [place], [place] Name: Huber Augustine Age: 55 yrs Sex: Male : 1965 Arrival Date: 10/01/2020 Time: 12:28 Bed 18 Private MD: Diagnosis: Cellulitis of left lower limb Presentation: 10/01 12:35 Chief complaint: Patient states: dog leash wrapped around his left leg, and caused a iw wound, is now red swollen and oozing, X 2-3days , is diabetic. Coronavirus screen: At this time, the client does not indicate any symptoms associated with coronavirus-19. Ebola Screen: Patient negative for fever greater than or equal to 101.5 degrees Fahrenheit, and additional compatible Ebola Virus Disease symptoms Patient denies exposure to infectious person. Patient denies travel to an Ebola-affected area in the 21 days before illness onset. No symptoms or risks identified at this time. Initial Sepsis Screen: Does the patient meet any 2 criteria? No. Patient's initial sepsis screen is negative. Does the patient have a suspected source of infection? No. Patient's initial sepsis screen is negative. Risk Assessment: Do you want to hurt yourself or someone else? Patient reports no desire to harm self or others. Onset of symptoms was September 28, 2020. 12:35 Method Of Arrival: Ambulatory iw 12:35 Acuity: ROSALEE 3 iw Historical: - Allergies: 12:39 unknown pain medicine; iw - PMHx: 12:38 Diabetes - NIDDM; Hypertension; liver cancer; neuropathy; iw - Immunization history:: Adult Immunizations up to date. - Social history:: Smoking status: Patient denies any tobacco usage or history of. Screenin:55 Abuse screen: Denies threats or abuse. Denies injuries from another. Nutritional ca1 screening: No deficits noted. Tuberculosis screening: No symptoms or risk factors identified. Fall Risk None identified. Assessment: 12:55 General: Appears in no apparent distress. comfortable, Behavior is calm, cooperative, ca1 appropriate for age. Pain: Complains of pain in left leg. Neuro: Level of Consciousness is awake, alert, obeys commands, Oriented to person, place, time, situation. Derm: Skin is intact, is healthy with good turgor, Skin is pink, warm \T\ dry. Musculoskeletal: Circulation, motion, and sensation intact. Capillary refill < 3 seconds, Swelling present in lateral aspect of left calf, left lateral ankle, left Achilles, medial aspect of left calf, left medial ankle, left rosario and anterior aspect of left ankle. Vital Signs: 12:39 Pulse 108; Resp 16; Temp 98.3; Pulse Ox 99% on R/A; Weight 90.72 kg; Height 6 ft. iw (182.88 cm); 13:19 BP 146 / 91; Pulse 94; Resp 16; Pulse Ox 99% on R/A; mt 12:39 Body Mass Index 27.12 (90.72 kg, 182.88 cm) ED Course: 12:28 Patient arrived in ED. as 12:37 Triage completed. iw 12:41 Dallas Coburn PA is PHCP. [facility] 12:41 Zelda Cobb MD is Attending Physician. [facility] 12:51 Loren Booker, CHANELLE is Primary Nurse. ca1 12:55 Patient has correct armband on for positive identification. Placed in gown. Bed in low ca1 position. Call light in reach. Side rails up X 1. Pulse ox on. NIBP on. Warm blanket given. 12:56 Arm band placed on. ca1 13:30 No provider procedures requiring assistance completed. Patient did not have IV access ca1 during this emergency room visit. Administered Medications: No medications were administered Outcome: 13:18 Dis[address] ordered by . [facility] 13:30 Discharged to home ambulatory. ca1 13:30 Condition: stable 13:30 Discharge instructions given to patient, Instructed on discharge instructions, follow up and referral plans. medication usage, Demonstrated understanding of instructions, follow-up care, medications, Prescriptions given X 3. 13:31 Patient left the ED. mt Signatures: Dallas Coburn PA PA jmm Martinez, Amelia as Williams, Irene, RN RN Aretha Wolfe ct Loren Booker RN RN ca1 Corrections: (The following items were deleted from the chart) 13:03 12:55 Derm: Skin is intact, is healthy with good turgor, Skin is pink, warm \T\ dry. ca1 ca1 13:03 12:55 Musculoskeletal: Circulation, motion, and sensation intact. Capillary refill < 3 ca1 seconds, ca1
--- NOTE | 2020-10-01 13:19 | EDPHYS ---
Physician Documentation [facility] Name: Huber Augustine Age: 55 yrs Sex: Male : 1965 Arrival Date: 10/01/2020 Time: 12:28 Bed 18 Private MD: ED Physician Zelda Cobb HPI: 10/01 13:05 This 55 yrs old Male presents to ER via Ambulatory with complaints of Leg jmm Pain. 13:05 The patient presents with pain. Onset: The symptoms/episode began/occurred gradually, 3 jmm day(s) ago. Modifying factors: The symptoms are alleviated by nothing. the symptoms are aggravated by nothing. This is a 55 year old male with a history of DM, HTN, that presents to the ED with complaints of left lower leg pain beginning 3 days ago. Patient states he was scratched by a dog leash and soon developed the pain. Denies fever or chills. . Historical: - Allergies: 12:39 unknown pain medicine; iw - PMHx: 12:38 Diabetes - NIDDM; Hypertension; liver cancer; neuropathy; iw - Immunization history:: Adult Immunizations up to date. - Social history:: Smoking status: Patient denies any tobacco usage or history of. ROS: 13:05 Constitutional: Negative for fever, chills, and weight loss, Cardiovascular: Negative jmm for chest pain, palpitations, and edema, Respiratory: Negative for shortness of breath, cough, wheezing, and pleuritic chest pain. 13:05 MS/extremity: Positive for pain. 13:05 Skin: Positive for erythema. 13:05 All other systems are negative. Exam: 13:05 Constitutional: This is a well developed, well nourished patient who is awake, alert, jmm and in no acute distress. Head/Face: atraumatic. Eyes: EOMI, no conjunctival erythema appreciated ENT: Moist Mucus Membranes Neck: Trachea midline, Supple Chest/axilla: Normal chest wall appearance and motion. Cardiovascular: Regular rate and rhythm. No edema appreciated Respiratory: Normal respirations, no respiratory distress appreciated Abdomen/GI: Non distended, soft Back: Normal ROM 13:05 Musculoskeletal/extremity: FROM noted to the left lower leg, compartments are soft, NVI. 13:05 Skin: mild erythema and induration noted to the left lower leg, ttp. 13:05 Neuro: Orientation: is normal, Mentation: is normal, Memory: is normal. 13:05 Psych: Behavior/mood is pleasant, cooperative. Vital Signs: 12:39 Pulse 108; Resp 16; Temp 98.3; Pulse Ox 99% on R/A; Weight 90.72 kg; Height 6 ft. iw (182.88 cm); 13:19 BP 146 / 91; Pulse 94; Resp 16; Pulse Ox 99% on R/A; mt 12:39 Body Mass Index 27.12 (90.72 kg, 182.88 cm) iw MDM: 12:44 Patient medically screened. [facility] 13:08 Data reviewed: vital signs, nurses notes. Counseling: I had a detailed discussion with svetlana the patient and/or guardian regarding: the historical points, exam findings, and any diagnostic results supporting the discharge/admit diagnosis, the need for outpatient follow up, to return to the emergency department if symptoms worsen or persist or if there are any questions or concerns that arise at home. ED course: Patient is alert and non toxic in appearance in the ED. Patient is advised to follow up with pcp and otherwise given strict return precautions. Patient understood and agrees with the plan of care. . Administered Medications: No medications were administered Disposition: 18:38 Co-signature as Attending Physician, Zelda Cobb MD. ma2 Disposition: 10/01/20 13:18 Discharged to Home. Impression: Cellulitis of left lower limb. - Condition is Stable. - Discharge Instructions: Cellulitis, Adult. - Prescriptions for Doxycycline Hyclate 100 mg Oral Tablet - take 1 tablet by ORAL route every 12 hours; 20 tablet. Bactrim DS 800- 160 mg Oral Tablet - take 1 tablet by ORAL route every 12 hours for 10 days; 20 tablet. Ibuprofen 800 mg Oral Tablet - take 1 tablet by ORAL route every 8 hours As needed take with food; 30 tablet. - Medication Reconciliation Form, Thank You Letter, Antibiotic Education, Prescription Opioid Use form. - Follow up: Private Physician; When: 2 - 3 days; Reason: Recheck today's complaints, Continuance of care, Re-evaluation by your physician. Signatures: Dallas Coburn PA PA jmm Williams, Irene, RN RN Aretha Wlofe mt, Mohammad, MD MD ma2 Loren Booker RN RN ca1 Corrections: (The following items were deleted from the chart) 13:31 13:18 10/01/2020 13:18 Discharged to Home. Impression: Cellulitis of left lower limb. mt Condition is Stable. Discharge Instructions: Cellulitis, Adult. Prescriptions for Doxycycline Hyclate 100 mg Oral Tablet - take 1 tablet by ORAL route every 12 hours; 20 tablet, Bactrim DS 800-160 mg Oral Tablet - take 1 tablet by ORAL route every 12 hours for 10 days; 20 tablet. and Forms are Medication Reconciliation Form, Thank You Letter, Antibiotic Education, Prescription Opioid Use. Follow up: Private Physician; When: 2 - 3 days; Reason: Recheck today's complaints, Continuance of care, Re-evaluation by your physician. svetlana
== END 2020-10-01 13:31 | disposition home or self-care (01) ==
CPT/HCPCS: 99283

== ENCOUNTER 2021-06-03 20:40 | Observation (INO) | payer OTHER ==
--- OUTSIDE RECORDS SUMMARY | 2021-06-03 20:44 | XMS REPORT | Continuity of Care Document ---
:1965 Author Organization [facility] t Address [address] [place] [address] Care Team Providers Name Role Phone Unavailable Unavailable Unavailable Payers Payer Name Policy Type Policy Number Effective Date Expiration Date S ource Problems This patient has no known problems. Allergies, Adverse Reactions, Alerts Allergy Allergy Status Severity Reaction(s) Onset Inactive Treating Comm ents Source Name Type Date Date Clinician morphine DA Active [place] 2018-0 [facility] 8[facility] No Known DA Active U 0 [facility] Allergie 6-13 [facility] Medications This patient has no known medications. Procedures This patient has no known procedures. Encounters Start End Encounter Admission Attending Care Care Encounter Source Date/Time Date/Time Type Type Clinicians Facility Department ID 2019-05-12 Inpatient E [facility] MED 7500 [facility] L 23:36:00 2021-05-19 2021-05-19 Emergency E [facility] 7503 MHBL 12:33:00 12:33:00 2019-11-11 2019-11-11 Emergency E [facility] 7502 MH 18:37:00 18[facility] [facility] 2019-10-19 2019-10-19 Emergency E [facility]SE [facility] 7501 MH 10:27:00 10:27:[address] [facility] [facility] Results Test Description Test Time Test Comments [...] = MDIFF) NO DIFF/SCN CRITERIA CBC W/AUTO [id number] 20:54:00 Test Item Value Reference Range Interpretation [...] code NO DIFF/SCN CRITERIA = MDIFF) RBC [id number] 20:54:00 Test Item Value Reference Range Interpretation Comments PLATELET MORPHOLOGY (test code = NORMAL PLTMORPH) CBC W/AUTO [id number] 20:54:00 Test Item Value Reference Range Interpretation [...] NO DIFF/SCN CRITERIA = MDIFF) BASIC METABOLIC [id number] 20:47:00 Test Item Value Reference Range Interpretation [...] CA) 8.5 MG/DL 8.5-10.1 N HEPATIC FUNCTION [id number] 20:47:00 Test Item Value Reference Range Interpretation [...] 189 Unit/L 50-136 H code = ALKP) [id number] 20:47:00 Test Item Value Reference Range Interpretation Comments LIPASE (test code = LIP) 219 Unit/L 114-286 N CBC W/AUTO [id number] 20:34:00 Test Item Value Reference Range Interpretation [...] code = DIFF/SCN CRITERIA MDIFF) BASIC METABOLIC [id number] 12:34:00 Test Item Value Reference Range Interpretation [...] CA) 9.5 MG/DL 8.5-10.1 N HEPATIC FUNCTION [id number] 12:34:00 Test Item Value Reference Range Interpretation [...] 291 Unit/L 50-136 H code = ALKP) [id number] 12:34:00 Test Item Value Reference Range Interpretation Comments LIPASE (test code = LIP) 207 Unit/L 114-286 N BASIC METABOLIC [id number] 12:29:00 Test Item Value Reference Range Interpretation [...] CA) 9.5 MG/DL 8.5-10.1 N HEPATIC FUNCTION [id number] 12:29:00 Test Item Value Reference Range Interpretation [...] TOTAL (test Unit/L 50-136 code = ALKP) [id number] 12:29:00 Test Item Value Reference Range Interpretation Comments LIPASE (test code = LIP) 207 Unit/L 114-286 N CBC W/AUTO [id number] 12:17:00 Test Item Value Reference Range Interpretation [...] DIFF/SCN CRITERIA MDIFF) - CT ABD PELVIS [id number] 11:10:00 Name: HAYLEELUBNA SHANNON [facility] : 1965 Age/S: 54 / M [address] [facility] Unit #: [id number] Loc: [place] [address] Phys: Nito Golden MD Acct: [id number] Dis Date: Status: REG ER PHONE #: [phone] Exam Date: 11/22/2019 1052 FAX #: Reason: rlq pain EXAMS: CPT: [id number] CT ABD PELVIS W/CONT 76384 LOCATION: T18 EXAM: CT ABDOMEN AND PELVIS [...] RT(R)(CT) CTDI: DLP: Trnscb Date/Time: 11/22/2019 (1110) [email or web address] Orig Print D/T: S: 11/22/2019 (1113) PAGE 1 Signed ReportBASIC METABOLIC [id number] 10:40:00 Test Item Value Reference Range Interpretation [...] CA) 9.0 MG/DL 8.5-10.1 N HEPATIC FUNCTION [id number] 10:40:00 Test Item Value Reference Range Interpretation [...] 112 Unit/L 50-136 N code = ALKP) [id number] 10:40:00 Test Item Value Reference Range Interpretation Comments LIPASE (test code = LIP) 106 Unit/L 114-286 L UA RFLX MICR CULT IF [id number] 10:12:00 Test Item Value Reference Range Interpretation [...] URINE: CLEAN CATCHIndication for culture: Dysuria/FrequencyCBC W/AUTO [id number] 09:46:00 Test Item Value Reference Range Interpretation [...] CRITERIA MDIFF) UA RFLX MICR CULT IF [id number] 09:45:00 Test Item Value Reference Range Interpretation [...] URINE: CLEAN CATCHIndication for culture: Dysuria/FrequencyCBC W/AUTO [id number] 23:05:00 Test Item Value Reference Range Interpretation [...] AUTO DIFFERENTIAL. UA RFLX MICR CULT IF [id number] 22:39:00 Test Item Value Reference Range Interpretation [...] CATCHIndication for culture: Dysuria/Frequency- CT ABD PELVIS [id number] 22:30:00 Name: LUBNA LEACH [facility] : 1965 Age/S: 54 / M [address] [facility] Unit #: [id number] Loc: [place] [address] Phys: Lino Ordaz MD Acct: [id number] Dis Date: Status: REG ER PHONE #: [phone] Exam Date: 10/14/2019 2220 FAX #: Reason: abdominal pain EXAMS: CPT: [id number] CT ABD PELVIS W/CONT 03916 EXAM: - CTABD PELVIS W/CONT HISTORY: Abdominal [...] PAGE 1 Signed Report (CONTINUED) Name: LUBNA ELACH [facility] : 1965 Age/S: 54 / M [address] Unit #: [id number] Loc: [place] [address] Phys: Lino Ordaz MD Acct: [id number] Dis Date: Status: REG ER PHONE #: [phone] Exam Date: 10/14/20192219 FAX #: Reason: abdominal pain EXAMS: CPT: [id number] CT ABD PELVIS W/CONT 96586 <Continued> at 2230 Reported and signed by: Choco Wells M.D. CC: Lino Ordaz MD; Nuha BARRAZA Technologist:RT Viri(R)(CT)(MRI) CTDI: DLP: Trnscb Date/Time: 10/14/2019 (2229) [email or web address] Orig Print D/T: S: 10/14/2019 (2232) PAGE 2 Signed Report UA RFLX MICR CULT IF [id number] 22:21:00 Test Item Value Reference Range Interpretation [...] CLEAN CATCHIndication for culture: Dysuria/Frequency COMPREHENSIVE METABOLIC [id number] 21:35:00 Test Item Value Reference Range Interpretation [...] code = ALKP) - XR CHEST 1 [id number] 21:30:00 Name: LUBNA LEACH [facility] : 1965 Age/S: 54 / M [address] Unit #: [id number] Loc: [place] [address] Phys: Lino Ordaz MD Acct: [id number] Dis Date: Status: REG ER PHONE #: [phone] Exam Date: 10/14/20192112 FAX #: Reason: liver failure EXAMS: CPT: [id number] XR CHEST 1 V 32849 Fluoro Time: DAP (Gy m2): Air Kerma [...] PAGE 1 Signed Report Name: LUBNA LEACH [facility] : 1965 Age/S: 54 / M [address] Unit #: [id number] Loc: [place] [address] Phys: Lino Ordaz MD Acct: [id number] Dis Date: Status: REG ER PHONE #: [phone] Date: 10/14/20192112 FAX #: Reason: liver failure EXAMS: CPT: [id number] XR CHEST 1 V 64200 Fluoro Time: DAP (Gy m2): Air Kerma (mGy): <Continued> Technologist: Farooq Lang RT(R)(CT) Trnscb Date/Time: 10/14/2019 (2129) SophiaR.[email or web address] Orig Print D/T: S: 10/14/2019 (2133) PAGE 2 Signed ReportCBC W/AUTO [id number] 21:25:00 Test Item Value Reference Range Interpretation [...] code = DIFF/SCN CRITERIA MDIFF) COMPREHENSIVE METABOLIC [id number] 21:22:00 Test Item Value Reference Range Interpretation [...] Unit/L 50-136 code = ALKP) CBC W/AUTO [id number] 13:44:00 Test Item Value Reference Range Interpretation [...] AUTO DIFFERENTIAL. UA RFLX MICR CULT IF [id number] 13:13:00 Test Item Value Reference Range Interpretation [...] URINE: CLEAN CATCHIndication for culture: Dysuria/FrequencyBASIC METABOLIC [id number] 13:12:00 Test Item Value Reference Range Interpretation [...] 8.5-10.1 N UA RFLX MICR CULT IF [id number] 13:12:00 Test Item Value Reference Range Interpretation [...] URINE: CLEAN CATCHIndication for culture: Dysuria/FrequencyCBC W/AUTO [id number] 12:59:00 Test Item Value Reference Range Interpretation [...] DIFF/SCN CRITERIA MDIFF) - CT HEAD/BRAIN W/O [id number] 12:55:00 Name: LUBNA LEACH [facility] : 1965 Age/S: 54 / M [address] Unit #: [id number] Loc: [place] [address] Phys: Nito Golden MD Acct: [id number] Dis Date: Status: REG ER PHONE #: [phone] Exam Date: 08/08/2019 1230 FAX #: Reason: headache EXAMS: CPT: [id number] CT HEAD/BRAIN W/O CONT 57101 Site ID: [id number] CT head TECHNIQUE: CT [...] CT. IMPRESSION: No acute intracranial abnormality at 8801 Reported and signed by: Danielle Verduzco M.D. CC: Nito Golden MD Technologist:Refugio Armenta, RT(R)(CT) CTDI: DLP: Trnscb Date/Time: 08/08/2019 (8620) [email or web address] Orig Print D/T: S: 08/08/2019 (2555) PAGE 1 Signed ReportTROPONIN I RAPID 2019-07-01 00:13:00 Test Item Value Reference Range Interpretation Comments TROPONIN I RAPID 0.00 ng/mL 0.00-0.08 N - The use o f serial (test code = sampling and te sting TROPIRAP) protocol is a recommended pra ctice- An elevated tro ponin level alone is often not sufficient for diagnosis of my ocardial infarction. HEPATIC FUNCTION [id number] 00:11:00 Test Item Value Reference Range Interpretation [...] code = 27 Unit/L 26-192 N CK) [id number] 00:11:00 Test Item Value Reference Range Interpretation Comments LIPASE (test code = LIP) 230 Unit/L 114-286 N NT PRO-BRAIN NATRIURETIC [id number] 00:11:00 Test Item Value Reference Range Interpretation Comments NT PRO-BRAIN NATRIURETIC PEPTI 137 PG/ML 0-100 H (test code = PROBNP) CHEMISTRY 8 [id number] 00:08:00 Test Item Value Reference Range Interpretation [...] 56-130 N code = GFRBED) CHEMISTRY 8 [id number] 00:08:00 Test Item Value Reference Range Interpretation [...] code = GFRBED) - XR CHEST 1 [id number] 00:03:00 Name: LUBNA LEACH [facility] : 1965 Age/S: 54 / M [address] Unit #: [id number] Loc: [place] [address] Phys: Jethro Rosenthal MD Acct: [id number] Dis Date: Status: REG ER PHONE #: [phone] Exam Date: 06/30/2019 0000 FAX #: Reason: SOB EXAMS: CPT: [id number] XR CHEST 1 V 83464 Fluoro Time: DAP (Gy m2): Air Kerma [...] PAGE 1 Signed Report Name: LUBNA LEACH [facility] : 1965 Age/S: 54 / M [address] [address] [id number] Loc: [place] [address] Phys: Jethro Rosenthal MD Acct: [id number] Dis Date: Status:REG ER PHONE #: [phone] Exam Date: 06/30/2019 0000 FAX #: Reason: SOB EXAMS: CPT: [id number] XR CHEST 1 V 61947 Fluoro Time: DAP (Gy m2): Air Kerma (mGy): <Continued> Technologist: Linda Rubalcava, RCS,RVS Trnscb Date/Time: 07/01/2019 (0003) IndianaMKM4 Orig Print D/T: S: 07/01/2019 (0007) PAGE 2 Signed ReportCBC W/O [id number] 23:55:00 Test Item Value Reference Range Interpretation [...] 7.0-9.6 H MPV) - XR CHEST 1 [id number] 11:34:00 Name: LUBNA LEACH [facility] : 1965 Age/S: 54 / M [address] Unit #: [id number] Loc: [place] [address] Phys: Tejas Feliciano MD Acct: [id number] Dis Date: Status: REG ER PHONE #: [phone] Exam Date: 06/26/2019 1105 FAX #: Reason: sore throat, dyspnea EXAMS: CPT: [id number] XR CHEST 1 V 03311 Fluoro Time: DAP (Gy m2): Air Kerma [...] PAGE 1 Signed Report Name: LUBNA LEACH [facility] : 1965 Age/S: 54 / M [address] Unit #: [id number] Loc: [place] [address] Phys: Tejas Feliciano MD Acct: [id number] Dis Date: Status: REG ER PHONE #: [phone] Exam Date: 06/26/2019 1105 FAX #: Reason: sore throat, dyspnea EXAMS: CPT: [id number] XR CHEST 1 V 86134 Fluoro Time: DAP (Gy m2): Air Kerma (mGy): <Continued> Technologist: Refugio Armenta, RT(R)(CT) Trnscb Date/Time: 06/26/2019 (1134) [email or web address] Orig Print D/T: S: 06/26/2019 (1130) PAGE 2 Signed ReportCOMPREHENSIVE METABOLIC [id number] 11:27:00 Test Item Value Reference Range Interpretation [...] 50-136 H TOTAL (test code = ALKP) [id number] 11:27:00 Test Item Value Reference Range Interpretation Comments LIPASE (test code = LIP) 88 Unit/L 114-286 L CBC W/AUTO [id number] 11:09:00 Test Item Value Reference Range Interpretation [...] = NO DIFF/SCN CRITERIA MDIFF) ANTINUCLEAR ANTIBODIES [id number] 02:42:00 Test Item Value Reference Range Interpretation Comments SEAN DIRECT (test code Negative () = ANADIR) Neg ative <1:80 Borderline 1:8 0 Positive >1:80Performed At: [facility] [address] [id number] ivan Womack MD Ph:[phone] ACUTE HEPATITIS [id number] 02:42:00 Test Item Value Reference Range Interpretation Comments AB HEPATITIS A IGM NON REACTIVE NON REACT. Testing d one at (test code = INDEX CLEAR HOOKS [place] O[place] HAVMAB) [facility] [address] [place] [address] AB HEPATITIS B <3.1 mIU/mL Immunity>9.9 A Status of SURFACE (test code Immunity = HBSAB) Anti-H Bs Level --- I ncon sistent with Immunity 0.0 - 9.9Consistent w ith Immunity >9.9Performed A t: [facility] [address] [place], [place] [id number] Kyle L MD Ph:[phone] ST PERFORMED AT [facility] [address] [place], [place] [address] AG HEPATITIS B NON REACTIVE NonReactive Testing done at SURFACE (test code INDEX [place]AR [place]AL = HBSAG) [facility] [address] [place] [address] [id number] AB HEPATITIS B NON REACTIVE NON REACT. Testing done at CORE IGM (test INDEX CLEAR HOOKS RE GIONAL code = HBCMAB) [facility] [address] [place] [address] AB HEPATITIS C REACTIVE INDEX NON REACT. A Testing don e at (test code = CLEAR HOOKS [place] ONAL HCVAB) [facility] [address] [place] [address] AB [id number] 02:42:00 Test Item Value Reference Range Interpretation Comments AB <20.0 Units 0.0-20.0 ANTI-MITOCHONDRIAL Ne gative 0.0 - (test code = 20.0 MITOAB) Equi vocal 20.1 - 24.9 Positive >24.9Mitochondr ial (M2) Antibodies are found in 90-96% ofpatien ts with primary biliary cirrhosis.Perfo rmed At: [facility] [id number] ra Ev GOMEZ Ph:[phone] ANTINUCLEAR ANTIBODIES [id number] 16:45:00 Test Item Value Reference Range Interpretation Comments SEAN DIRECT (test code Negative () = ANADIR) Neg ative <1:80 Borderline 1:8 0 Positive >1:80Performed At: [facility] [id number] ivan Womack MD Ph:[phone] ACUTE HEPATITIS [id number] 16:45:00 Test Item Value Reference Range Interpretation Comments AB HEPATITIS A IGM NON REACTIVE NON REACT. Testing d one at (test code = INDEX CLEAR [place]OO[place] ONAL HAVMAB) [facility] [address] [place] [address]. [place] [address] AB HEPATITIS B <3.1 mIU/mL Immunity>9.9 A Status of SURFACE (test code Immunity = HBSAB) Anti-H Bs Level --- I ncon sistent with Immunity 0.0 - 9.9Consistent w ith Immunity >9.9Performed A t: [facility] [address] [place], [place] [id number] Den Womack MD Ph:[phone] ST PERFORMED AT [facility] [address] [place], [place] [address] AG HEPATITIS B NON REACTIVE NonReactive Testing done at SURFACE (test code INDEX [place]AL = HBSAG) [facility] [address] [place] [address]. [place], [place] 668[address] AB HEPATITIS B NON REACTIVE NON REACT. Testing done at CORE IGM (test INDEX CLEAR HOOKS RE GIONAL code = HBCMAB) [facility] [address] [place] [address]. [place] [address] AB HEPATITIS C REACTIVE INDEX NON REACT. A Testing don e at (test code = CLEAR HOOKS [place] ONAL HCVAB) [facility] [address] [place] [address]. [place], [place] [address] AB [id number] 16:45:00 Test Item Value Reference Range Interpretation Comments AB ANTI-MITOCHONDRIAL (test code = Units 0.0-20.0 MITOAB) [id number] 21:51:00 Test Item Value Reference Range Interpretation Comments GLUBED (test code = GLUBED) 168 mg/dL 70-110 H [id number] 15:58:00 Test Item Value Reference Range Interpretation Comments GLUBED (test code = GLUBED) 168 mg/dL 70-110 H [id number] 07:22:00 Test Item Value Reference Range Interpretation Comments GLUBED (test code = GLUBED) 113 mg/dL 70-110 H CBC W/AUTO [id number] 06:46:00 Test Item Value Reference Range Interpretation [...] BA#) 0.1 K/mm3 0.0-0.2 N COMPREHENSIVE METABOLIC [id number] 06:12:00 Test Item Value Reference Range Interpretation [...] 158 Units/L 50.0-136.0 H code = ALKP) [id number] 06:12:00 Test Item Value Reference Range Interpretation Comments MAGNESIUM (test code = MAG) 2.0 mg/dl 1.8-2.4 N [id number] 23:47:00 Test Item Value Reference Range Interpretation Comments GLUBED (test code = GLUBED) 179 mg/dL 70-110 H ANTINUCLEAR ANTIBODIES [id number] 16:47:00 Test Item Value Reference Range Interpretation Comments SEAN DIRECT (test code = ANADIR) NEGATIVE ACUTE HEPATITIS [id number] 16:47:00 Test Item Value Reference Range Interpretation Comments AB HEPATITIS A IGM NON REACTIVE NON REACT. Testing d one at (test code = INDEX CLEAR HOOKS [place] ONAL HAVMAB) [facility] [address] [place] [address]. [facility] [address] AB HEPATITIS B mIU/mL Immune >9.9 SURFACE (test code = HBSAB) AG HEPATITIS B NON REACTIVE NonReactive Testing done at SURFACE (test code INDEX [place]AR [place]AL = HBSAG) [facility] [address] [place] [address]. [facility] [address] AB HEPATITIS B NON REACTIVE NON REACT. Testing done at CORE IGM (test INDEX CLEAR HOOKS RE GIONAL code = HBCMAB) [facility] [address] [place] [address]. [facility] [address] AB HEPATITIS C REACTIVE INDEX NON REACT. A Testing don e at (test code = CLEAR HOOKS [place] ONAL HCVAB) [facility] [address] [place] [address]. [facility] [address] AB [id number] 16:47:00 Test Item Value Reference Range Interpretation Comments AB ANTI-MITOCHONDRIAL (test code = Units 0.0-20.0 MITOAB) AG HEPATITIS B [id number] 16:41:00 Test Item Value Reference Range Interpretation Comments AG HEPATITIS B SURFACE NON REACTIVE INDEX NonReactive (test code = HBSAG) AB HEPATITIS B CORE [id number] 16:41:00 Test Item Value Reference Range Interpretation Comments AB HEPATITIS B CORE IGM NON REACTIVE INDEX NON REACT. (test code = HBCMAB) AB HEPATITIS [id number] 16:41:00 Test Item Value Reference Range Interpretation Comments AB HEPATITIS C (test code = REACTIVE INDEX NON REACT. A HCVAB) AB HEPATITIS A [id number] 16:41:00 Test Item Value Reference Range Interpretation Comments AB HEPATITIS A IGM (test NON REACTIVE INDEX NON REACT. code = HAVMAB) [id number] 16:40:00 Test Item Value Reference Range Interpretation Comments GLUBED (test code = GLUBED) 167 mg/dL 70-110 H [id number] 13:52:00 Test Item Value Reference Range Interpretation Comments GLUBED (test code = GLUBED) 139 mg/dL 70-110 H VITAMIN [id number] 13:03:00 Test Item Value Reference Range Interpretation Comments VITAMIN B12 (test code = VITB12) 697 pg/mL 193-986 N THYROID STIMULATING [id number] 13:03:00 Test Item Value Reference Range Interpretation Comments THYROID STIMULATING 1.83 IU/ML 0.47-5.01 N Result i s in HORMONE (test code = Interna tional TSH) Units/millilite r [id number] 12:40:00 Test Item Value Reference Range Interpretation Comments HGBA1C% (test code = HGBA1C%) 6.4 %A1C 4.8-6.0 H ESTIMATED AVERAGE GLUCOSE (test 137 MG/DL code = EAG) - US ABDOMEN [id number] 12:20:00 FAX: Beto Urias [phone] [place]: St: ADM FAX: Leslie Larsen [phone] Name: LUBNA LEACH [facility] : 1965 Age/S: 54/M [address] [facility] Unit #: [id number] Loc: [place], [place] Phys: Gael Garcia [address] Acct: [id number] Dis Date: Status: ADM IN PHONE #: [phone] Exam Date: 05/16/2019 1046 FAX #: [phone] Reason: Elevated LFT Report Has Been Amended EXAMS: CPT CODE: [id number] US ABDOMEN LTD [address]322 Addendum - 05/16/2019 SIGNED 05/16/2019 ADDENDUM: [id number] US/USABDLTD Addendum: A typographical air occurred described [...] 1 Signed Report (CONTINUED) FAX: Beto Urias [phone] [place]: St: [facility] FAX: Gael Larsen [phone] Name: LUBNA LEACH [facility] : 1965 Age/S: 54/M [address] [facility] Unit #: [id number] Loc: [place], [place] Phys: Gael Garcia [address] Acct: [id number] Dis Date: Status: ADM IN PHONE #: [phone] Exam Date: 05/16/2019 1046 FAX #: [phone] Reason: Elevated LFT Report Has Been Amended EXAMS: CPT CODE: [id number] US ABDOMEN LTD [address] <Continued> Impression: No acute abnormality in the right upper quadrant. Liver size slightly enlarged with fatty changes. CT shows slightly nonsmooth margins suggesting the possibility of cirrhosis, as well. No ascites recognized, currently. Location: [facility] Electronically Signed by Stan Smith on 05/16/2019 at 1108 Reported and signed by: Torsten Smith M.D. CC: Beto Boland MD; Gael BARRAZA Technologist: CARLOS ALBERTO HU Trnmord Date/Time/By: 05/16/2019 (5301) : By: [facility] PAGE 2 Signed Report FAX: Beto Urias [phone] [place]: St: ADM FAX: Gael Larsen [phone] Name: LUBNA LEACH [facility] : 1965 Age/S: 54/M [address] [place] [address] Unit #: [id number] Loc: [place], [place] Phys: Gael Garcia [address] Acct: [id number] Dis Date: Status: ADM IN PHONE #: [phone] Exam Date: 05/16/2019 1046 FAX #: [phone] Reason: Elevated LFT Report Has Been Amended EXAMS: CPT CODE: [id number] US ABDOMEN LTD [address] <Continued> Orig Print D/T: S: 05/16/2019 (1114) PAGE 3 Signed Report- US ABDOMEN [id number] 11:08:00 FAX: Beto Urias [phone] [place]: St: ADM FAX: Gael LarsenMADI [phone] Name: LUBNA LEACH [facility] : 1965 Age/S: 54/M [address] [facility] Unit #: [id number] Loc: [place], [place] Phys: Gael Garcia [address] Acct: [id number] Dis Date: Status: ADM IN PHONE #: [phone] Exam Date: 05/16/2019 1046 FAX #: [phone] Reason: Elevated LFT EXAMS: CPT CODE: [id number] US ABDOMEN LTD [address] ULTRASOUND:- US ABDOMEN LTD History: Elevated liver [...] as well. No ascites recognized, currently. Location: [facility] at 1108 Reported and signed by: Torsten Smith M.D. CC: Beto Boland MD; Gael BARRAZA Technologist: CARLOS ALBERTO HU Trnscrd Date/Time/By: 05/16/2019 (1932) : By: Nathanael PAGE 1 Signed Report FAX: Beto Urias [phone] [place]: St: ADM FAX: Gael Larsen [phone] Name: LUBNA LEACH [facility] : 1965 Age/S: 54/M [address] [facility] Unit #: [id number] Loc: [place], [place] Phys: Gael Garcia [address] Acct: [id number] Dis Date: Status: ADM IN PHONE #: [phone] Exam Date: 05/16/2019 1046 FAX #: [phone] Reason: Elevated LFT EXAMS: CPT CODE: [id number] US ABDOMEN LTD [address] <Continued> Orig Print D/T: S: 05/16/2019 (6424) PAGE 2 Signed [id number] 07:18:00 Test Item Value Reference Range Interpretation Comments AMMONIA (test code = AMM) 9.5 MCMOL/L 11.0-32.0 L No sample received in the lab. Please collect if deemednecessary.Thank you!Lab DRUGS OF ABUSE SCREEN [id number] 06:29:00 Test Item Value Reference Interpretation Comments [...] [place]) concentrati on: 300 ng/mL CBC W/MANUAL [id number] 05:08:00 Test Item Value Reference Range Interpretation [...] MORPHOLOGY (test code NORMAL = PLTMORPH) PROTHROMBIN [id number] 01:10:00 Test Item Value Reference Range Interpretation Comments PROTHROMBIN TIME 12.6 SECONDS 9.9-12.8 N PATIENT (test code = PTP) INTERNATIONAL NORMAL 1.1 0.89-1.14 N THE INR IS TO BE USED RATIO (test code = ONLY FOR MONITORING INR) ORAL ANTICOAGULANTTH ERAPY. THE FOLLOWING A RE SUGGESTED RANGE S FROM [facility] LE[facility]ST PHYSICIANS:ANGELA CATION INR VALUEPROPHYLAXI S OF VENOUS THROMBOS IS (ORTHOPEDIC JACQUES TRAVON) 2.0 - 3.0PROP HYLAXIS OF VENOUS THROM BOSIS (OTHER THAN HIG H-RISK SURGERY) 2.0 - 3.0TRE ATMENT OF DEEP VEIN THROMBOSIS OR PULMONARY EMBOL ISM 2.0 - 3.0PREV ENTION OF SYSTEMIC EMB OLISM TISSUE HEART VA LVES 2.0 - 3.0 AC MECHOOPDA MYOCARDIAL INFA RCTION (TO PREVENT SYSTEMIC EMBOLI [...] 3 .5 Specimen comments: Clean CatchTHROMBOPLASTIN TIME [id number] 01:10:00 Test Item Value Reference Range Interpretation Comments THROMBOPLASTIN TIME 33.50 SECONDS 25.86-36.07 N [place] d Lab PARTIAL (test code = Therape utic Range - PTT) APTT of 55.8-85 .4 secondscorrelat es with plasma heparin concentration o f 0.2-0.4 u/mL Ne w range effective - Specimen comments: Clean CatchBASIC METABOLIC [id number] 01:09:00 Test Item Value Reference Range Interpretation [...] 8.0 mg/dl 8.0-10.5 N Specimen comments: Clean iSSimpleHEPATIC FUNCTION PANEL [id number] 01:09:00 Test Item Value Reference Range Interpretation [...] H code = ALKP) Specimen comments: Clean [id number] 01:09:00 Test Item Value Reference Range Interpretation Comments LIPASE (test code = 560 Units/L 65.0-230.0 H 2+ LIPEM IC SAMPLE. LIP) Specimen comments: Clean iSSimpleB-TYPE NATRIURETIC [id number] 01:09:00 Test Item Value Reference Range Interpretation Comments B-TYPE NATRIURETIC PEPTIDE (test 33 PG/ML 5-100 N code = BNP) Specimen comments: Clean iSSimpleBASIC METABOLIC [id number] 00:59:00 Test Item Value Reference Range Interpretation [...] 8.0 mg/dl 8.0-10.5 N Specimen comments: Clean iSSimpleHEPATIC FUNCTION PANEL [id number] 00:59:00 Test Item Value Reference Range Interpretation [...] H code = ALKP) Specimen comments: Clean [id number] 00:59:00 Test Item Value Reference Range Interpretation Comments LIPASE (test code = 560 Units/L 65.0-230.0 H 2+ LIPEM IC SAMPLE. LIP) Specimen comments: Clean CatchB-TYPE NATRIURETIC [id number] 00:59:00 Test Item Value Reference Range Interpretation Comments B-TYPE NATRIURETIC PEPTIDE (test code PG/ML 5-100 = BNP) Specimen comments: Clean CatchBASIC METABOLIC [id number] 00:54:00 Test Item Value Reference Range Interpretation [...] 8.0-10.5 Specimen comments: Clean CatchHEPATIC FUNCTION PANEL [id number] 00:54:00 Test Item Value Reference Range Interpretation [...] 50.0-136.0 code = ALKP) Specimen comments: Clean [id number] 00:54:00 Test Item Value Reference Range Interpretation Comments LIPASE (test code = LIP) Units/L 65.0-230.0 Specimen comments: Clean CatchB-TYPE NATRIURETIC [id number] 00:54:00 Test Item Value Reference Range Interpretation Comments B-TYPE NATRIURETIC PEPTIDE (test code PG/ML 5-100 = BNP) Specimen comments: Clean CatchURINALYSIS [id number] 00:52:00 Test Item Value Reference Range Interpretation [...] SGU) UA BLOOD DIPSTICK (test 10 Anthony/micL Anhtony/micL NEGATIVE A code = PAUL) UA PH [...] NONE BACU) Specimen comments: Clean CatchCBC W/MANUAL [id number] 00:46:00 Test Item Value Reference Range Interpretation [...] code = LYMPH) % 20-40 CBC W/MANUAL [id number] 00:46:00 Test Item Value Reference Range Interpretation [...] (test code = LYMPH) % 20-40 URINALYSIS [id number] 00:45:00 Test Item Value Reference Range Interpretation [...] comments: Clean Catch- CT ABD PELVIS W/O [id number] 23:43:00 FAX: Nathan Prince MD [place]: St: REG Name: LUBNA LEACH [facility] : 1965 Age/S: 54/M [address] [facility] Unit: [id number] Loc: [address] Phys: [place] [address] Acct: [id number] Dis Date: Status: REG ER PHONE #: [phone] Exam Date: 05/15/2019 2316 FAX #: [phone] Reason: ruq pain EXAMS: CPT CODE: [id number] CT ABD PELVIS W/O CONT 25074 CLINICAL HISTORY: Right upper quadrant abdominal pain,shortness [...] Signed Report (CONTINUED) FAX: Nathan Prince MD [place]: St: REG Name: LUBNA LEACH [facility] : 1965 Age/S: 54/M [address] [facility] Unit: [id number] Loc: [address] Phys: [place] [address] Acct: [id number] Dis Date: Status: REG ER PHONE #: [phone] Exam Date: 05/15/2019 2316 FAX #: [phone] Reason: ruq pain EXAMS: CPT CODE: [id number] CT ABD PELVIS W/O CONT 62192 <Continued> This exam was performed according to ourdepartmental dose-optimization program, which includes automated exposure control, adjustment of the mA and/or kV according to patient size and/or use of iterative reconstruction technique at 2343 Reported and signed by: Lennox Purvis M.D. CC: Nathan Prince MD Technologist: STANTON Good Dt/Tm: 05/15/2019 (9423) [email or web address] Orig Print D/T: S: 05/15/2019 (2636 PAGE 2 Signed Report- XR CHEST 2 [id number] 23:29:00 FAX: Nathan Prince MD [place]: St: REG Name: LUBNA LEACH [facility] : 1965 Age/S: 54/M [address] [facility] Unit#: [id number] Loc: [address] Phys: [place] [address] Acct: [id number] Dis Date: Status: REG ER PHONE #: [phone] Exam Date: 05/15/2019 232 FAX #: [phone] Reason: sob EXAMS: CPT CODE: [id number] XR CHEST 2 V 39639 EXAM: - XR CHEST 2 V HISTORY: Shortness of breath. COMPARISON: April 17, 2018. FINDINGS: PA and lateral view of the chest is provided. Heart size and vascularity are within normal limits. There is no focal consolidation. No effusion, pneumothorax, or acute osseous abnormality. IMPRESSION: No consolidation or pleural effusion. at 4728 Reported and signed by: Choco Wells M.D. CC: Nathan Prince MD Technologist: TOO Good Date/Time/By: 05/15/2019 (2395) : By: [email or web address] PAGE 1 Signed Report FAX: Nathan Prince MD [place]: St: REG -- Name: LUBNA LEACH [facility] : 1965 Age/S: 54/M [address] [facility] Unit #: [id number] Loc: E.ERS[address] [place], [place] Phys: [place] [address] Acct: [id number] Dis Date: Status: REG ER PHONE #: [phone] Exam Date: 05/15/2019 2320 FAX #: [phone] Reason: sob EXAMS: CPT CODE: [id number] XR CHEST 2 V 51950 <Continued> Orig Print D/T: S: 05/15/2019 (3985) PAGE 2 Signed Report
[2021-06-03] MEDS ORDERED: ONDANSETRON 4 MG (ODT) TAB ONE (23:59)
[2021-06-04 01:01] LABS: Absolute Lymphocytes (CBC) 3.3 K/uL (0.7-4.9); Basophils % 1.1 % (0-1.3); Hematocrit 43.8 % (39.6-49.0); Lymphocytes % 44.6 % (15.3-44.8); MPV 9.6 fL (7.6-11.3); RBC Red Blood Cell Count 4.72 M/uL (4.33-5.43)
[2021-06-04 01:02] LABS: Protime INR 1.01
[2021-06-04 01:12] LABS: ALT/SGPT 170 U/L (12-78); AST/SGOT 143 U/L (15-37); Albumin 3.2 g/dL (3.4-5.0); Alkaline Phosphatase 124 U/L (45-117); BUN Blood Urea Nitrogen 12 mg/dL (7-18); Bicarbonate 23 mmol/L (21-32); Bilirubin Direct 0.5 mg/dL (0-0.2); Bilirubin Total 0.9 mg/dL (0.2-1.0); Glucose Level 101 mg/dL (74-106); NT PRO-BNP 282 pg/mL (<125); Protein, Total 6.8 g/dL (6.4-8.2); Sodium Level 139 mmol/L (136-145); Troponin (Emerg Dept Use Only) < 0.02 ng/mL (0.0-0.045)
[2021-06-04 01:18] LABS: C-Reactive Protein < 2.90 mg/L (<3.00)
[2021-06-04 01:40] LABS: Blood Morphology Comment NOT SEEN (NOT SEEN); Platelet Estimate ADEQ
[2021-06-04] MEDS ORDERED: NA CHLORIDE 0.9% 1,000 ML ONE (01:56)
[2021-06-04 02:04] LABS: Barbiturates NEGATIVE (NEGATIVE); Benzodiazepines NEGATIVE (NEGATIVE); Cocaine NEGATIVE (NEGATIVE); METHAMPHETAM NEGATIVE (NEGATIVE); Methadone NEGATIVE (NEGATIVE); Opiates NEGATIVE (NEGATIVE); Phencyclidine NEGATIVE (NEGATIVE); THC Cannibis POSITIVE (NEGATIVE)
--- NOTE | 2021-06-04 03:15 | ER ---
Nurse's Notes [facility] Name: Huber Augustine Age: 56 yrs Sex: Male : 1965 Arrival Date: 06/03/2021 Time: 20:41 Bed 28 Private MD: Diagnosis: Parestesia left upper and lower extremities. Unstesdy gait Presentation: 06/03 21:10 Chief complaint: Patient states: For about one week pt stated has been having tingling vg1 and numbness in Left arm and Left leg. Denies pain. Pt states nausea. When palpated on left arm and left leg pt stated ' I can barely feel that". Pt stated "its hard for me to open a water bottle". Coronavirus screen: Client denies travel out of the [place] in the last 14 days. Ebola Screen: Patient negative for fever greater than or equal to 101.5 degrees Fahrenheit, and additional compatible Ebola Virus Disease symptoms. Initial Sepsis Screen: Does the patient meet any 2 criteria? No. Patient's initial sepsis screen is negative. Does the patient have a suspected source of infection? No. Patient's initial sepsis screen is negative. Risk Assessment: Do you want to hurt yourself or someone else? Patient reports no desire to harm self or others. Onset of symptoms was May 27, 2021. 21:10 Method Of Arrival: EMS: [facility] 1 21:10 Acuity: ROSALEE 3 vg1 Triage Assessment: 21:12 General: Appears in no apparent distress. comfortable, Behavior is cooperative, vg1 anxious. Pain: Denies pain. 21:12 Neuro: Level of Consciousness is awake, alert, obeys commands, Oriented to person, vg1 place, time, situation, Manager Aviation are equal bilaterally Moves all extremities. Speech is normal, Facial symmetry appears normal. Historical: - Allergies: 21:12 No Known Allergies; vg1 - Home Meds: 21:12 gabapentin Oral [Active]; lisinopril Oral [Active]; Lyrica Oral [Active]; vg1 - PMHx: 21:12 Diabetes - NIDDM; Hypertension; liver cancer; neuropathy; vg1 - Immunization history:: Adult Immunizations up to date. - Social history:: Smoking status: Patient reports the use of cigarette tobacco products, smokes one-half pack cigarettes per day. Screenin:32 Abuse screen: Denies threats or abuse. Denies injuries from another. Nutritional zb screening: No deficits noted. Tuberculosis screening: No symptoms or risk factors identified. Fall Risk None identified. Assessment: 23:28 General: Appears uncomfortable, unkempt, Behavior is anxious, Reports feeling ill for > zb 3 days, fatigue for >3 days. Pain: Complains of pain in right arm, left arm and left leg Pain does not radiate. Pain currently is 3 out of 10 on a pain scale. Quality of pain is described as aching, tingling. Neuro: Level of Consciousness is awake, alert, obeys commands, Oriented to person, place, time, situation, Manager Aviation are weak bilaterally Weakness in bilateral hand(s) Speech is normal, Facial symmetry appears normal, Pupils are PERRLA, Reports headache numbness in right hand, left hand and left foot weakness in generalized. Cardiovascular: Patient's skin is warm and dry. Respiratory: Airway is patent. GI: Reports upper abdominal pain, cramping, intolerance of fluids, intolerance of food, nausea, vomiting. Derm: Skin is normal. Musculoskeletal: Range of motion: intact in all extremities. 23:41 Reassessment: notified ecp of covid sx. test ordered. notified ecp of c/o nausea. zb medication ordered and given. 06/04 00:46 Reassessment: Patient and/or family updated on plan of care and expected duration. Pain ap3 level reassessed. Patient is alert, oriented x 3, equal unlabored respirations, skin warm/dry/pink. 03:36 Reassessment: Patient is alert, oriented x 3, equal unlabored respirations, skin bb warm/dry/pink. pt states he is feeling a little nauseous Duarte Joycea C 40A CREW CHIEF notified new orders received pt medicated see JAN. Vital Signs: 06/03 21:10 BP 151 / 94; Pulse 73; Resp 18; Temp 98.6; Pulse Ox 97% ; Weight 90.72 kg; Height 6 ft. vg1 0 in. (182.88 cm); Pain 0/10; 23:33 BP 129 / 76; Pulse 67; Resp 16; Pulse Ox 97% on R/A; zb 06/04 01:42 BP 147 / 81; Pulse 64; Resp 17; Pulse Ox 98% on R/A; ap3 02:20 BP 109 / 62; Pulse 62; Resp 19; Pulse Ox 98% on R/A; ap3 03:38 BP 133 / 92; Pulse 60; Resp 18 S; Temp 97.6(O); Pulse Ox 99% on R/A; bb 06/03 21:10 Body Mass Index 27.12 (90.72 kg, 182.88 cm) vg1 ED Course: 06/03 20:41 Patient arrived in ED. mw2 21:12 Triage completed. vg1 21:12 Arm band placed on Patient placed in waiting room, Patient notified of wait time. vg1 23:15 Radha Priest, RN is Primary Nurse. zb 23:33 Patient has correct armband on for positive identification. Bed in low position. Call zb light in reach. Side rails up X 1. assembly line robot operator on. Pulse ox on. NIBP on. Door closed. Noise minimized. 23:45 Chong Rebollar MD is Attending Physician. pkl 06/04 00:30 Missed attempt(s): 20 gauge in right antecubital area. Bleeding controlled, band aid tt3 applied, catheter tip intact. 00:34 XRAY Chest (1 view) In Process Unspecified. EDMS 00:47 Inserted saline lock: 20 gauge in right forearm, using aseptic technique. Blood ap3 collected. 00:47 EKG done, by ED staff, reviewed by Chong Rebollar MD. ap3 01:13 CT Head C Spine In Process Unspecified. EDMS 02:16 initiated a transfer with Aysha from [facility]. mw2 02:24 [facility], [facility], [facility], [facility] mw2 denied due to capacity. 02:26 initiated a transfer with Riddhi from [facility]. mw2 02:48 all [facility] denied due to capacity. mw2 02:49 initiated a transfer with Nidia from [facility] Transfer [place]. mw2 02:53 all [facility] denied due to capacity. mw2 03:13 Lorenzo Bryan is Hospitalizing Provider. pkl 03:39 No provider procedures requiring assistance completed. Patient admitted, IV remains in bb place. Administered Medications: 06/03 23:41 Drug: Ondansetron 4 mg Route: PO; zb 06/04 02:21 Follow up: Response: No adverse reaction ap3 01:41 Drug: NS 0.9% 1000 ml Route: IV; Rate: 125 ml/hr; Site: right forearm; ap3 03:54 Follow up: IV Status: Completed infusion; IV Intake: 1000ml bb 03:54 Follow up: Saline given as a bolus Dr Rebollar notified no new orders received bb 03:30 Drug: Aspirin Chewable Tablet 324 mg Route: PO; bb 03:40 Follow up: Response: No adverse reaction bb 03:30 Drug: foLIC Acid 1 mg Route: PO; bb 03:41 Follow up: Response: No adverse reaction bb 03:36 Drug: Zofran (Ondansetron) 4 mg Route: IVP; Site: right forearm; bb 03:55 Follow up: Response: No adverse reaction bb Intake: 03:54 IV: 1000ml; Total: 1000ml. bb Outcome: 03:14 Decision to Hospitalize by Provider. pkl 03:39 Instructed on the need for admit. bb 14:53 Patient left the ED. ll1 Signatures: Dispatcher [employer] EDMS Chong Rebollar MD MD pkl Ballard, Brenda, RN RN bb Sharita Mcgraw RN RN ap3 Diane Hager mw2 Diane Buckley RN RN vg1 Estela Limon RN RN ll1 Colton Sam tt3 Radha Priest RN RN zb Corrections: (The following items were deleted from the chart) 06/03 21:13 21:12 Allergies: unknown pain medicine; vg1 vg1 21:15 21:10 Chief complaint: Patient states: For about one week pt stated has been having vg1 tingling and numbness in Left arm and Left leg. Denies pain. Pt states nausea. Pt stated "its hard for me to open a water bottle" vg1
--- NOTE | 2021-06-04 03:15 | EDPHYS ---
Physician Documentation [facility] Name: Huber Augustine Age: 56 yrs Sex: Male : 1965 Arrival Date: 06/03/2021 Time: 20:41 Bed 28 Private MD: ED Physician Chong Rebollar HPI: 06/04 00:02 This 56 yrs old Male presents to ER via EMS with complaints of Arm Pain. pkl 00:02 The patient's problem is reported as paresthesias, in left upper extremity, in left pkl lower extremity. Onset: The symptoms/episode began/occurred 1 week(s) ago. Associated signs and symptoms: Pertinent positives: ataxia, nausea. Historical: - Allergies: 06/03 21:12 No Known Allergies; vg1 - Home Meds: 21:12 gabapentin Oral [Active]; lisinopril Oral [Active]; Lyrica Oral [Active]; vg1 - PMHx: 21:12 Diabetes - NIDDM; Hypertension; liver cancer; neuropathy; vg1 - Immunization history:: Adult Immunizations up to date. - Social history:: Smoking status: Patient reports the use of cigarette tobacco products, smokes one-half pack cigarettes per day. ROS: 06/04 00:02 Eyes: Negative for injury, pain, redness, and discharge, ENT: Negative for injury, pkl pain, and discharge, Neck: Negative for injury, pain, and swelling, Cardiovascular: Negative for chest pain, palpitations, and edema, Respiratory: Negative for shortness of breath, cough, wheezing, and pleuritic chest pain, Abdomen/GI: Negative for abdominal pain, nausea, vomiting, diarrhea, and constipation, Back: Negative for injury and pain, : Negative for injury, bleeding, discharge, and swelling. MS/extremity: Positive for paresthesias, tingling, of the left upper and lower extremities. Skin: Negative for rash. Neuro: Positive for gait disturbance, numbness, of the left upper and lower extremities. Exam: 02:58 Radiologist reports: No acute findings pkl 02:58 Head/Face: Normocephalic, atraumatic. Eyes: Pupils equal round and reactive to light, extra-ocular motions intact. Lids and lashes normal. Conjunctiva and sclera are non-icteric and not injected. Cornea within normal limits. Periorbital areas with no swelling, redness, or edema. ENT: Nares patent. No nasal discharge, no septal abnormalities noted. Tympanic membranes are normal and external auditory canals are clear. Oropharynx with no redness, swelling, or masses, exudates, or evidence of obstruction, uvula midline. Mucous membranes moist. Neck: Trachea midline, no thyromegaly or masses palpated, and no cervical lymphadenopathy. Supple, full range of motion without nuchal rigidity, or vertebral point tenderness. No Meningismus. Chest/axilla: Normal chest wall appearance and motion. Nontender with no deformity. No lesions are appreciated. Cardiovascular: Regular rate and rhythm with a normal S1 and S2. No gallops, murmurs, or rubs. Normal PMI, no JVD. No pulse deficits. Respiratory: Lungs have equal breath sounds bilaterally, clear to auscultation and percussion. No rales, rhonchi or wheezes noted. No increased work of breathing, no retractions or nasal flaring. Abdomen/GI: Soft, non-tender, with normal bowel sounds. No distension or tympany. No guarding or rebound. No evidence of tenderness throughout. Back: No spinal tenderness. No costovertebral tenderness. Full range of motion. Skin: Warm, dry with normal turgor. Normal color with no rashes, no lesions, and no evidence of cellulitis. MS/ Extremity: Pulses equal, no cyanosis. Neurovascular intact. Full, normal range of motion. 02:58 Neuro: Orientation: is normal, Mentation: is normal, Memory: is normal, Cranial nerves: grossly normal, Cerebellar function: normal finger to nose testing, heel to rosario testing is normal, Motor: moves all fours, Sensation: numbness, that is moderate, of the left upper and lower extremities, Gait: is unsteady. Vital Signs: 06/03 21:10 BP 151 / 94; Pulse 73; Resp 18; Temp 98.6; Pulse Ox 97% ; Weight 90.72 kg; Height 6 ft. vg1 0 in. (182.88 cm); Pain 0/10; 23:33 BP 129 / 76; Pulse 67; Resp 16; Pulse Ox 97% on R/A; zb 06/04 01:42 BP 147 / 81; Pulse 64; Resp 17; Pulse Ox 98% on R/A; ap3 02:20 BP 109 / 62; Pulse 62; Resp 19; Pulse Ox 98% on R/A; ap3 03:38 BP 133 / 92; Pulse 60; Resp 18 S; Temp 97.6(O); Pulse Ox 99% on R/A; bb 06/03 21:10 Body Mass Index 27.12 (90.72 kg, 182.88 cm) vg1 MDM: 06/03 23:45 Patient medically screened. pk 06/04 03:06 Data reviewed: vital signs, nurses notes, lab test result(s), EKG, radiologic studies, pkl CT scan, plain films. ED course: Attempts to transfer patient to [facility] and [facility] unsuccessful. talked to Duarte Gonzalez ( REINSURANCE CLERK ) For observation ( Dr. Bryan ). 06/04 00:10 Order name: Basic Metabolic Panel; Complete Time: : pk 06/04 00:10 Order name: CBC with Diff; Complete Time: pk 06/04 01:57 Interpretation: Abnormal. pk 06/04 00:10 Order name: LFT's; Complete Time: : pk 06/04 00:10 Order name: Magnesium; Complete Time: : pk 06/04 00:10 Order name: NT PRO-BNP; Complete Time: : pk 06/04 00:10 Order name: PT-INR; Complete Time: pk 06/04 00:10 Order name: Troponin (emerg Dept Use Only); Complete Time: : pk 06/04 00:10 Order name: UDS; Complete Time: 02:07 pk 06/04 00:10 Order name: ETOH Level; Complete Time: :56 pk 06/04 00:11 Order name: Sed Rate; Complete Time: 01:35 pk 06/04 00:11 Order name: CRP; Complete Time: :28 pk 06/04 00:11 Order name: Lactate; Complete Time: : pk 06/04 00:10 Order name: XRAY Chest (1 view) pk 06/04 00:10 Order name: EKG; Complete Time: 00:11 pk 06/04 00:10 Order name: CT Head C Spine pk 06/04 01:15 Order name: Manual Differential; Complete Time: 01:56 EDMS 06/04 01:37 Order name: SARS-COV-2 RT PCR; Complete Time: 01:56 EDMS 06/04 05:33 Order name: Lipid Profile EDTX 06/04 05:33 Order name: T4 Free EDTX 06/04 05:33 Order name: Thyroid Stimulating Hormone EDTX 06/04 06:04 Order name: Hemoglobin A1c EDTX 06/04 07:38 Order name: Glucose, Ancillary Testing EDTX 06/04 12:15 Order name: Glucose, Ancillary Testing EDTX 06/04 00:10 Order name: Cardiac monitoring; Complete Time: 00:45 pkl 06/04 00:10 Order name: EKG - Nurse/Tech; Complete Time: 00:45 pkl 06/04 00:10 Order name: IV Saline Lock; Complete Time: 00:45 pkl 06/04 00:10 Order name: Labs collected and sent; Complete Time: 00:45 pkl 06/04 00:10 Order name: O2 Per Protocol; Complete Time: 00:45 pkl 06/04 00:10 Order name: O2 Sat Monitoring; Complete Time: 00:45 pkl Administered Medications: 06/03 23:41 Drug: Ondansetron 4 mg Route: PO; zb 06/04 02:21 Follow up: Response: No adverse reaction ap3 01:41 Drug: NS 0.9% 1000 ml Route: IV; Rate: 125 ml/hr; Site: right forearm; ap3 03:54 Follow up: IV Status: Completed infusion; IV Intake: 1000ml bb 03:54 Follow up: Saline given as a bolus Dr Rebollar notified no new orders received bb 03:30 Drug: Aspirin Chewable Tablet 324 mg Route: PO; bb 03:40 Follow up: Response: No adverse reaction bb 03:30 Drug: foLIC Acid 1 mg Route: PO; bb 03:41 Follow up: Response: No adverse reaction bb 03:36 Drug: Zofran (Ondansetron) 4 mg Route: IVP; Site: right forearm; bb 03:55 Follow up: Response: No adverse reaction bb Disposition Summary: 06/04/21 03:14 Hospitalization Ordered Hospitalization Status: Observation pkl Provider: Lorenzo Bryan pkmara Condition: Stable pkl Problem: new pkl Symptoms: are unchanged pkl Bed/Room Type: Standard pkl Location: Telemetry/MedSurg (observation)(06/04/21 13:27) dw Room Assignment: 222(06/04/21 13:27) dw Diagnosis - Parestesia left upper and lower extremities. Unstesdy gait pkl Forms: - Medication Reconciliation Form pkl - SBAR form pkl Signatures: Dispatcher [employer] EDMS Radha Diggs RN RN Rosa Eldridge RN RN Chong Ford MD MD pkAngie Valdovinos, RN RN Doris Alva RN Sharita Nuno ea RN RN Diane Box RN RN vg1 Radha Priest RN RN zb Corrections: (The following items were deleted from the chart) 06/03 21:13 21:12 Allergies: unknown pain medicine; vg1 vg1 06/04 00:42 00:09 CORONAVIRUS+Z ordered. EDTX EDMS 05:52 03:14 Telemetry/MedSurg (observation) pkl mw 05:52 03:14 pkl mw 13:27 05:52 [facility] ER HOLD mw dw 13:27 05:52 ERHOLD- mw dw
--- NOTE | 2021-06-04 03:22 | P.HP ---
Certification for Inpatient Patient admitted to: Observation With expected LOS: <2 Midnights Patient will require the following post-hospital care: None Practitioner: I am a practitioner with admitting privileges, knowledge of patient current condition, hospital course, and medical plan of care. Services: Services provided to patient in accordance with Admission requirements found in Title 42 Section 412.3 of the Code of Federal Regulations Patient History Date of Service: 06/04/21 Reason for admission: Paresthesias, weakness History of Present Illness: 56-year-old male with history of diabetes metas type II, hypertension, cyst on the liver, neuropathy presents emergency department for left-sided numbness/tingling/pain/weakness. Patient reports symptoms ongoing over the course of the last 1 week with some waxing/waning. Patient was evaluated in the emergency department, labs were significant for AST 143 ALT 170 alk phos 124 D bili 0.5 BNP 282+ for THC. On exam patient with NIH of 1 for reported mild sensory loss. Patient reports some symptoms that are bilateral. ED attempted transfer as there is no MRI available, attempted discussed case with neurology but unavailable by phone. Will admit under observation. - Past Medical/Surgical History -: Diabetes mellitus type 2 -: Hypertension -: "Cyst on liver" -: Neuropathy -: Alcohol/drug abuse -: Cholecystectomy -: Right lower leg surgery Psychosocial/ Personal History: Patient lives at home, alone - Family History Mother -: Liver disease Father -: Heart disease - Social History Smoking Status: Current every day smoker Counseled patient to stop smoking for: less than 10 minutes Smoking therapy provided: Yes Alcohol use: Yes CD- Drugs: Yes Caffeine use: Yes Place of Residence: Home Review of Systems 10-point ROS is otherwise unremarkable Musculoskeletal: Arm Pain Neurological: Weakness, Numbness Physical Examination - Physical Exam General: Alert, In no apparent distress, Oriented x3 HEENT: Atraumatic, PERRLA, Mucous membr. moist/pink, EOMI, Sclerae nonicteric Neck: Supple, 2+ carotid pulse no bruit, No LAD, Without JVD or thyroid abnormality Respiratory: Clear to auscultation bilaterally, Normal air movement Cardiovascular: Regular rate/rhythm, Normal S1 S2 Gastrointestinal: Normal bowel sounds, No tenderness Musculoskeletal: No tenderness Integumentary: No rashes Neurological: Normal speech, Normal strength at 5/5 x4 extr, Normal tone, Cranial nerves 3-12 intact, Normal affect, Abnormal sensation Lymphatics: No axilla or inguinal lymphadenopathy - Studies Laboratory Data (last 24 hrs) 06/04/21 00:40: PT 11.6, INR 1.01 06/04/21 00:40: WBC 7.40, Hgb 15.2, Hct 43.8, Plt Count 154 06/04/21 00:40: Sodium 139, Potassium 4.0, BUN 12, Creatinine 0.68, Glucose 101, Magnesium 2.0, Total Bilirubin 0.9, AST 143 H, ALT 170 H, Alkaline Phosphatase 124 H Assessment and Plan - Plan Assessment: Left upper/lower extremity paresthesias/subjective weakness Diabetes mellitus type 2 Hypertension Elevated aminotransferase levels Plan: Left upper/lower extremity paresthesias/subjective weakness: No objective findings at this time, continue with aspirin, folic acid. MRI not available this weekend, have consulted neurology for additional input. Physical therapy to evaluate. Diabetes mellitus type 2: AC at bedtime Accu-Chek, sliding scale insulin therapy. A1c. Hypertension: Obtain an continue home medications Elevated aminotransferase levels: Patient drinks, also reports history of "liver cyst" no abdominal pain at this time, patient with previous cholecystectomy. DVT PPX: Lovenox Code status: Full Discharge Plan: Home Plan to discharge in: 24 Hours - Advance Directives Does patient have a Living Will: No Does patient have a Durable POA for Healthcare: No - Code Status/Comfort Care Code Status Assessed: Yes (Full code) Critical Care: No Time Spent Managing Pts Care (In Minutes): 55
[2021-06-04] MEDS ORDERED: FOLIC ACID 1 MG TABLET ONE ×2 (03:37→08:31)
[2021-06-04] MEDS ORDERED: ASPIRIN 81 MG CHEWABLE TABLET ONE (03:37)
[2021-06-04] MEDS ORDERED: ONDANSETRON 4 MG/2 ML VIAL ONE (03:48)
[2021-06-04] MEDS ORDERED: ONDANSETRON 4 MG/2 ML VIAL IV PRN (03:49)
[2021-06-04 04:13] VITALS: BMI 27.1
[2021-06-04 05:33] LABS: Thyroid Stimulating Hormone 0.352 uIU/mL (0.360-3.740)
[2021-06-04] MEDS: INSULIN -REGULAR HUMAN 50 UNIT/0.5 ML ML SQ SCH ×3 (07:30→16:07)
[2021-06-04] MEDS ORDERED: ASPIRIN EC 81 MG TAB PO ONE (08:31)
[2021-06-04] MEDS ORDERED: ENOXAPARIN 40 MG/0.4 ML SQ ONE (08:31)
--- NOTE | 2021-06-04 08:54 | RAD REPORT ---
EXAM DESCRIPTION: RAD - Chest Single View - 06/04/2021 12:34 am CLINICAL HISTORY: numbness left upper and lower extremities COMPARISON: Chest Single View dated 06/11/2020; Chest Single View dated 05/01/2020 FINDINGS: No evidence of edema or pneumonia. The heart size is within normal limits.No acute osseous abnormality. No significant pleural effusions or pneumothorax. IMPRESSION: No acute cardiopulmonary disease.
[2021-06-04] MEDS ORDERED: ASPIRIN EC 81 MG TAB PO SCH (09:00)
[2021-06-04] MEDS ORDERED: ENOXAPARIN 40 MG/0.4 ML SQ SCH (09:00)
[2021-06-04] MEDS ORDERED: FOLIC ACID 1 MG TABLET PO SCH (09:00)
[2021-06-04 15:22] VITALS: O2SAT 99
--- NOTE | 2021-06-04 15:29 | P.DS ---
Admission Date: 06/04/21 Discharge Date: 06/04/21 Disposition: ROUTINE DISCHARGE Reason for Admission: Paresthesias, weakness Consultations: neurology - Problems (1) Distal paresthesia Current Visit: Yes Status: Acute (2) Numbness in left leg Current Visit: Yes Status: Acute (3) Left leg weakness Current Visit: Yes Status: Acute (4) Diabetes mellitus type 2 in nonobese Current Visit: Yes Status: Acute Brief History of Present Illness: 56-year-old man with history of diabetes metas type II, hypertension, cyst on the liver, neuropathy presents emergency department for left-sided numbness/tingling/pain/weakness. Patient reports symptoms ongoing over the course of one week. Patient was evaluated in the emergency department, labs were significant for AST 143 ALT 170 alk phos 124 D bili 0.5 BNP 282+ for THC. On exam patient with NIH of 1 for reported mild sensory loss. ED attempted transfer as there is no MRI available. Patient placed under observation for monitoring. Hospital Course: Patient placed under observation on the medical floor. Hemoglobin A1c checked to 7.2. He experienced no changes and his symptoms. Patient was ambulatory. Case discussed with neurology, acute CVA is unlikely given his symptoms have been present for a week or more and CT head remain negative. Peripheral neuropathy suspected. Dr. Bal recommend further outpatient evaluation. Patient advised to follow were [facility] or [facility] for further evaluation. He is prescribed vitamin supplementations- vitamin B12, thiamine and folic acid. He is also prescribed statin and aspirin. Vital Signs/Physical Exam: Temp Pulse Resp BP Pulse Ox 98.1 F 62 17 122/74 99 06/04/21 12:00 06/04/21 12:00 06/04/21 12:00 06/04/21 12:06/04/21 12:00 General: Alert, In no apparent distress, Oriented x3 HEENT: Mucous membr. moist/pink Neck: JVD not distended Respiratory: Clear to auscultation bilaterally, Normal air movement Cardiovascular: No edema, Regular rate/rhythm, Normal S1 S2 Gastrointestinal: Normal bowel sounds, Soft and benign, Non-distended, No tenderness Musculoskeletal: No swelling, No tenderness Integumentary: No rashes Neurological: Normal strength at 5/5 x4 extr, Cranial nerves 3-12 intact Laboratory Data at Discharge: WBC 7.40 K/uL (4.3-10.9) 06/04/21 00:40 Hgb 15.2 g/dL (13.6-17.9) 06/04/21 00:40 Hct 43.8 % (39.6-49.0) 06/04/21 00:40 Plt Count 154 K/uL (152-406) 06/04/21 00:40 PT 11.6 SECONDS (9.5-12.5) 06/04/21 00:40 INR 1.01 06/04/21 00:40 Sodium 139 mmol/L (136-145) 06/04/21 00:40 Potassium 4.0 mmol/L (3.5-5.1) 06/04/21 00:40 BUN 12 mg/dL (7-18) 06/04/21 00:40 Creatinine 0.68 mg/dL (0.55-1.3) 06/04/21 00:40 Glucose 101 mg/dL (74-106) 06/04/21 00:40 Magnesium 2.0 mg/dL (1.8-2.4) 06/04/21 00:40 Total Bilirubin 0.9 mg/dL (0.2-1.0) 06/04/21 00:40 AST 143 U/L (15-37) H 06/04/21 00:40 ALT 170 U/L (12-78) H 06/04/21 00:40 Alkaline Phosphatase 124 U/L (45-117) H 06/04/21 00:40 Triglycerides 151 mg/dL (<150) H 06/04/21 04:40 Cholesterol 137 mg/dL (<200) 06/04/21 04:40 HDL Cholesterol 33 mg/dL (40-60) L 06/04/21 04:40 Cholesterol/HDL Ratio 4.15 06/04/21 04:40 Home Medications: Aspirin [Aspirin EC] 81 mg PO DAILY #30 tablet. 06/04/21 Atorvastatin Calcium [Lipitor] 40 mg PO BEDTIME #30 tab 06/04/21 Cyanocobalamin [Vitamin B-12*] 1,000 mcg PO DAILY #30 tab 06/04/21 Folic Acid 1 mg PO DAILY #30 tablet 06/04/21 Thiamine HCl 100 mg PO DAILY #30 tablet 06/04/21 New Medications: Aspirin [Aspirin EC] 81 mg PO DAILY #30 tablet. Folic Acid 1 mg PO DAILY #30 tablet Atorvastatin Calcium [Lipitor] 40 mg PO BEDTIME #30 tab Thiamine HCl 100 mg PO DAILY #30 tablet Cyanocobalamin [Vitamin B-12*] 1,000 mcg PO DAILY #30 tab Physician Discharge Instructions: Follow up with [facility] or [facility] as soon as possible for further evaluation. Diet: ADA Activity: Ad yenni Followup: NONE,NONE [Primary Care Provider] -
[2021-06-04 16:22] VITALS: BP 128/79; TEMP 97.8
[2021-06-04] MEDS ORDERED: ATORVASTATIN 40 MG TAB PO SCH (21:00)
--- NOTE | 2021-06-04 21:57 | RAD REPORT ---
EXAM DESCRIPTION: CT - Head C Spine Mpr Wo Con - 06/04/2021 1:[address] Head and Cervical Spine Without Intravenous Contrast CLINICAL HISTORY: The patient is 56 years old and is Male; numbness left upper and lower e xtremities TECHNIQUE: Axial computed tomography images of the head/brain and cervical spine without intravenous contrast. Sagittal and coronal reformatted images were created and reviewed. This CT exam was pe rformed using one or more of the following dose reduction techniques: automated exposure control, a djustment of the mA and/or kV according to patient size, and/or use of iterative reconstruction techn ique. COMPARISON: No relevant prior studies available. FINDINGS: BRAIN: Unremarkable. No hemorrhage. No significant white matter disease. No edema. VENTRICLES: Unremarkable. No ventriculomegaly. SKULL: No acute fracture. SINUSES: Unremarkable as visualized. No acute sinusitis. MASTOID AIR CELLS: Unremarkable as visualized. No mastoid effusion. VERTEBRAE: The vertebral body heights and alignment are maintained. No acute fracture. DISCS/SPINAL CANAL/NEURAL FORAMINA: Minimal intervertebral disc space narrowing at C6-C7 with mil d anterior osteophyte and posterior osteophyte formation is present. Neural foraminal narrowing at C5 -C6 and C6-C7 secondary to posterior disc osteophyte complexes is noted. There is no significant jocelin l stenosis. The remaining intervertebral disc spaces are maintained. SOFT TISSUES: The soft tissues are normal. LUNG APICES: Unremarkable as visualized. IMPRESSION: 1. No acute intracranial findings. 2. Mild spondylosis of the cervical spine without acute findings. Electronically signed by: Mireya Guillermo MD 06/04/2021 1:32 AM CDT Due to temporary technical issues with the PACS/Fluency reporting system, reports are being signed by the in house radiologists without review as a courtesy to insure prompt reporting. The interpreting radiologist is fully responsible for the content of the report.
== END 2021-06-04 17:30 | disposition home or self-care (01) ==
LOC: ER 20:40 → ERHOLD 06-04 03:11 → 2ND 06-04 14:40
PROVIDERS: ADMIT Internal Medicine; ATTEND Internal Medicine
DX: R20.2 Paresthesia of skin (principal); R53.1 Weakness; R20.0 Anesthesia of skin; G62.9 Polyneuropathy, unspecified; E11.9 Type 2 diabetes mellitus without complications; I10 Essential (primary) hypertension; R26.81 Unsteadiness on feet; K76.89 Other specified diseases of liver; F12.10 Cannabis abuse, uncomplicated; R74.01 Elevation of levels of liver transaminase levels; F17.210 Nicotine dependence, cigarettes, uncomplicated; Z71.6 Tobacco abuse counseling; Z20.822 Contact with and (suspected) exposure to COVID-19; Z85.05 Personal history of malignant neoplasm of liver; Z82.49 Family history of ischemic heart disease and other diseases of the circulatory system
CPT/HCPCS: 96361; 93005 ×2; 85025; 80048; 36415; 80320; 83735; 85610; 80061; 82947 ×3; 80076; 83605; 85652; 84443; 83036; 84484; 84439; 83880; 80307; 86140; 70450; 72125; 71045; 97116; 97161; 96374; 99285; U0003; J1650; J7030; J2405; G0378 ×2

== ENCOUNTER 2021-09-19 07:10 | Emergency (ER) | payer OTHER ==
--- OUTSIDE RECORDS SUMMARY | 2021-09-19 07:15 | XMS REPORT | Continuity of Care Document ---
:1965 Author Organization [facility] t Address [address] [place] [address] Care Team Providers Name Role Phone Physician, No Primary or Family Admitting Clinician Unavaila ble Payers Payer Name Policy Type Policy Number Effective Date Expiration Date S ource Problems This patient has no known problems. Allergies, Adverse Reactions, Alerts Allergy Allergy Status Severity Reaction(s) Onset Inactive Treating Comm ents Source Name Type Date Date Clinician morphine DA Active AR 2018-0 [facility] 8-27 [place] 00:00: d 00 [facility] morphine DA Active AR REDNESS/ITCH 2018-0 HC A ING TO AREA 8-27 Maryuri an OF INJECTION 00:00: d 00 [facility] No Known DA Active U 2017-0 [facility] Allergie 6-13 [place] s 00:00: d 00 [facility] Medications This patient has no known medications. Procedures This patient has no known procedures. Encounters Start End Encounter Admission Attending Care Care Encounter Source Date/Time Date/Time Type Type Clinicians Facility Department ID 2020-09-07 Inpatient HCAPM NELIDA [id number] [facility] 20:04:00 [facility] 2020-01-10 Inpatient [facility]CAPM NELIDA [id number] [facility] 11:42:00 [facility] 2019-11-22 Inpatient HCAPM NELIDA [id number] [facility] 08:41:00 [id number] [facility] 2019-05-12 Inpatient E MHBL MED 7500 MHB L 23:36:00 2021-05-19 2021-05-19 Emergency E MHBL MHBL 7503 MHBL 12:33:00 12:33:2019-11-11 2019-11-11 Emergency E MHSE MHSE 7502 18:37:00 18:37:00 [facility] 2019-10-19 2019-10-19 Emergency E MHSE SE 7501 10:27:00 10:27:00 [facility] Results Test Description Test Time Test Comments [...] = MDIFF) NO DIFF/SCN CRITERIA CBC W/AUTO [id number] 20:54:00 Test Item Value Reference Range Interpretation [...] code NO DIFF/SCN CRITERIA = MDIFF) RBC [id number] 20:54:00 Test Item Value Reference Range Interpretation Comments PLATELET MORPHOLOGY (test code = NORMAL PLTMORPH) CBC W/AUTO [id number] 20:54:00 Test Item Value Reference Range Interpretation [...] NO DIFF/SCN CRITERIA = MDIFF) BASIC METABOLIC [id number] 20:47:00 Test Item Value Reference Range Interpretation [...] CA) 8.5 MG/DL 8.5-10.1 N HEPATIC FUNCTION [id number] 20:47:00 Test Item Value Reference Range Interpretation [...] 189 Unit/L 50-136 H code = ALKP) [id number] 20:47:00 Test Item Value Reference Range Interpretation Comments LIPASE (test code = LIP) 219 Unit/L 114-286 N CBC W/AUTO [id number] 20:34:00 Test Item Value Reference Range Interpretation [...] code = DIFF/SCN CRITERIA MDIFF) BASIC METABOLIC [id number] 12:34:00 Test Item Value Reference Range Interpretation [...] CA) 9.5 MG/DL 8.5-10.1 N HEPATIC FUNCTION [id number] 12:34:00 Test Item Value Reference Range Interpretation [...] 291 Unit/L 50-136 H code = ALKP) [id number] 12:34:00 Test Item Value Reference Range Interpretation Comments LIPASE (test code = LIP) 207 Unit/L 114-286 N BASIC METABOLIC [id number] 12:29:00 Test Item Value Reference Range Interpretation [...] CA) 9.5 MG/DL 8.5-10.1 N HEPATIC FUNCTION [id number] 12:29:00 Test Item Value Reference Range Interpretation [...] TOTAL (test Unit/L 50-136 code = ALKP) [id number] 12:29:00 Test Item Value Reference Range Interpretation Comments LIPASE (test code = LIP) 207 Unit/L 114-286 N CBC W/AUTO [id number] 12:17:00 Test Item Value Reference Range Interpretation [...] DIFF/SCN CRITERIA MDIFF) - CT ABD PELVIS [id number] 11:10:00 Name: LUBNA LEACH [facility] : 1965 Age/S: 54 / M [address] Unit #: [id number] Loc: [place] [address] Phys: Nito Golden MD Acct: [id number] Dis Date: Status: REG ER PHONE #: [phone] Exam Date: 11/22/2019 1059 FAX #: Reason: rlq pain EXAMS: CPT: [id number] CT ABD PELVIS W/CONT 57644 LOCATION: T18 EXAM: CT ABDOMEN AND PELVIS [...] RT(R)(CT) CTDI: DLP: Trnscb Date/Time: 11/22/2019 (1110) [email or web address] Orig Print D/T: S: 11/22/2019 (1113) PAGE 1 Signed ReportBASIC METABOLIC [id number] 10:40:00 Test Item Value Reference Range Interpretation [...] CA) 9.0 MG/DL 8.5-10.1 N HEPATIC FUNCTION [id number] 10:40:00 Test Item Value Reference Range Interpretation [...] 112 Unit/L 50-136 N code = ALKP) [id number] 10:40:00 Test Item Value Reference Range Interpretation Comments LIPASE (test code = LIP) 106 Unit/L 114-286 L UA RFLX MICR CULT IF [id number] 10:12:00 Test Item Value Reference Range Interpretation [...] URINE: CLEAN CATCHIndication for culture: Dysuria/FrequencyCBC W/AUTO [id number] 09:46:00 Test Item Value Reference Range Interpretation [...] CRITERIA MDIFF) UA RFLX MICR CULT IF [id number] 09:45:00 Test Item Value Reference Range Interpretation [...] URINE: CLEAN CATCHIndication for culture: Dysuria/FrequencyCBC W/AUTO [id number] 23:05:00 Test Item Value Reference Range Interpretation [...] DIFF REQUIRED NO DIFF/SCN CRITERIA SLIDE R ESTEPHANIEW (test code = MDIFF) CONSISTA NT WITH AUTO DIFFERENTIAL. UA RFLX MICR CULT IF [id number] 22:39:00 Test Item Value Reference Range Interpretation [...] CATCHIndication for culture: Dysuria/Frequency- CT ABD PELVIS [id number] 22:30:00 Name: LUBNA LEACH [facility] : 1965 Age/S: 54 / M [address] Unit #: [id number] Loc: [place] [address] Phys: Lino Ordaz MD Acct: [id number] Dis Date: Status: REG ER PHONE #: [phone] Exam Date: 10/14/20192219 FAX #: Reason: abdominal pain EXAMS: CPT: [id number] CT ABD PELVIS W/CONT 67701 EXAM: - CTABD PELVIS W/CONT HISTORY: Abdominal [...] 1 Signed Report (CONTINUED) Name: LUBNA LEACH [facility] : 1965 Age/S: 54 / M [address] [facility] Unit #: [id number] Loc: [place] [address] Phys: Lino Ordaz MD Acct: [id number] Dis Date: Status: REG ER PHONE #: [phone] Exam Date: 10/14/20192219 FAX #: Reason: abdominal pain EXAMS: CPT: [id number] CT ABD PELVIS W/CONT 80683 <Continued> at 2230 Reported and signed by: Choco Wells M.D. CC: Lino Ordaz MD; Nuha BARRAZA Technologist:Leeroy Maldonado, RT(R)(CT)(MRI) CTDI: DLP: Trnscb Date/Time: 10/14/2019 (0) [email or web address] Orig Print D/T: S: 10/14/2019 (0978) PAGE 2 Signed Report UA RFLX MICR CULT IF [id number] 22:21:00 Test Item Value Reference Range Interpretation [...] CLEAN CATCHIndication for culture: Dysuria/Frequency COMPREHENSIVE METABOLIC [id number] 21:35:00 Test Item Value Reference Range Interpretation [...] code = ALKP) - XR CHEST 1 [id number] 21:30:00 Name: LUBNA LEACH [facility] : 1965 Age/S: 54 / M [address] Unit #: [id number] Loc: [place] [address] Phys: Lino Ordaz MD Acct: [id number] Dis Date: Status: REG ER PHONE #: [phone] Exam Date: 10/14/20192112 FAX #: Reason: liver failure EXAMS: CPT: [id number] XR CHEST 1 V 34561 Fluoro Time: DAP (Gy m2): Air Kerma [...] Hospital : 1965 Age/S: 54 / M [address] Unit #: [id number] Loc: [place] [address] Phys: Lino Ordaz MD Acct: [id number] Dis Date: Status: REG ER PHONE #: [phone] Date: 10/14/20192112 FAX #: Reason: liver failure EXAMS: CPT: [id number] XR CHEST 1 V 94364 Fluoro Time: DAP (Gy m2): Air Kerma (mGy): <Continued> Technologist: Farooq Lang, RT(R)(CT) Trnscb Date/Time: 10/14/2019 (2129) [email or web address] Orig Print D/T: S: 10/14/2019 (2133) PAGE 2 Signed ReportCBC W/AUTO [id number] 21:25:00 Test Item Value Reference Range Interpretation [...] code = DIFF/SCN CRITERIA MDIFF) COMPREHENSIVE METABOLIC [id number] 21:22:00 Test Item Value Reference Range Interpretation [...] Unit/L 50-136 code = ALKP) CBC W/AUTO [id number] 13:44:00 Test Item Value Reference Range Interpretation [...] AUTO DIFFERENTIAL. UA RFLX MICR CULT IF [id number] 13:13:00 Test Item Value Reference Range Interpretation [...] URINE: CLEAN CATCHIndication for culture: Dysuria/FrequencyBASIC METABOLIC [id number] 13:12:00 Test Item Value Reference Range Interpretation [...] 8.5-10.1 N UA RFLX MICR CULT IF [id number] 13:12:00 Test Item Value Reference Range Interpretation [...] URINE: CLEAN CATCHIndication for culture: Dysuria/FrequencyCBC W/AUTO [id number] 12:59:00 Test Item Value Reference Range Interpretation [...] DIFF/SCN CRITERIA MDIFF) - CT HEAD/BRAIN W/O [id number] 12:55:00 Name: LUBAN LEACH [facility] : 1965 Age/S: 54 / M [address] Unit #: [id number] Loc: [place] [address] Phys: Nito Golden MD Acct: [id number] Dis Date: Status: REG ER PHONE #: [phone] Exam Date: 08/08/2019 1230 FAX #: Reason: headache EXAMS: CPT: [id number] CT HEAD/BRAIN W/O CONT 11125 Site ID: [id number] CT head TECHNIQUE: CT [...] CT. IMPRESSION: No acute intracranial abnormality at 1252 Reported and signed by: Danielle Verduzco M.D. CC: Nito Golden MD Technologist:Refugio Armenta, RT(R)(CT) CTDI: DLP: Trnscb Date/Time: 08/08/2019 (1953) [email or web address] Orig Print D/T: S: 08/08/2019 (2487) PAGE 1 Signed ReportTROPONIN I RAPID 2019-07-01 00:13:00 Test Item Value Reference Range Interpretation Comments TROPONIN I RAPID 0.00 ng/mL 0.00-0.08 N - The use o f serial (test code = sampling and te sting TROPIRAP) protocol is a recommended pra ctice- An elevated tro ponin level alone is often not sufficient for diagnosis of my ocardial infarction. HEPATIC FUNCTION [id number] 00:11:00 Test Item Value Reference Range Interpretation [...] code = 27 Unit/L 26-192 N CK) [id number] 00:11:00 Test Item Value Reference Range Interpretation Comments LIPASE (test code = LIP) 230 Unit/L 114-286 N NT PRO-BRAIN NATRIURETIC [id number] 00:11:00 Test Item Value Reference Range Interpretation Comments NT PRO-BRAIN NATRIURETIC PEPTI 137 PG/ML 0-100 H (test code = PROBNP) CHEMISTRY 8 [id number] 00:08:00 Test Item Value Reference Range Interpretation [...] 56-130 N code = GFRBED) CHEMISTRY 8 [id number] 00:08:00 Test Item Value Reference Range Interpretation [...] code = GFRBED) - XR CHEST 1 [id number] 00:03:00 Name: LUBNA LEACH [facility] : 1965 Age/S: 54 / M [address] Unit #: [id number] Loc: [place] [address] Phys: Jethro Rosenthal MD Acct: [id number] Dis Date: Status: REG ER PHONE #: [phone] Exam Date: 06/30/2019 0000 FAX #: Reason: SOB EXAMS: CPT: [id number] XR CHEST 1 V 75578 Fluoro Time: DAP (Gy m2): Air Kerma [...] PAGE 1 Signed Report Name: LUBNA LEACH : 1965 Age/S: 54 / M [address] [id number] Loc: [place] [address] Phys: Jethro Rosenthal MD Acct: [id number] Dis Date: Status:REG ER PHONE #: [phone] Exam Date: 06/30/2019 0000 FAX #: Reason: SOB EXAMS: CPT: [id number] XR CHEST 1 V 12013 Fluoro Time: DAP (Gy m2): Air Kerma (mGy): <Continued> Technologist: CHILO Melgoza RVS Trnscb Date/Time: 07/01/2019 (0003) [email or web address] Orig Print D/T: S: 07/01/2019 (0007) PAGE 2 Signed ReportJAMES [facility]. [facility] W/O [id number] 23:55:00 Test Item Value Reference Range Interpretation [...] 7.0-9.6 H MPV) - XR CHEST 1 [id number] 11:34:00 Name: LUBNA LEACH [facility] : 1965 Age/S: 54 / M [address] Unit #: [id number] Loc: [place] [address] Phys: Tejas Feliciano MD Acct: [id number] Dis Date: Status: REG ER PHONE #: [phone] Exam Date: 06/26/2019 1105 FAX #: Reason: sore throat, dyspnea EXAMS: CPT: [id number] XR CHEST 1 V 85352 Fluoro Time: DAP (Gy m2): Air Kerma [...] Hospital : 1965 Age/S: 54 / M [address] Unit #: [id number] Loc: [place] [address] Phys: Tejas Feliciano MD Acct: [id number] Dis Date: Status: REG ER PHONE #: [phone] Exam Date: 06/26/2019 1105 FAX #: Reason: sore throat, dyspnea EXAMS: CPT: [id number] XR CHEST 1 V 65668 Fluoro Time: DAP (Gy m2): Air Kerma (mGy): <Continued> Technologist: Refugio Armenta, RT(R)(CT) Trnscb Date/Time: 06/26/2019 (1135) [email or web address] Orig Print D/T: S: 06/26/2019 (1970) PAGE 2 Signed ReportCOMPREHENSIVE METABOLIC [id number] 11:27:00 Test Item Value Reference Range Interpretation [...] 50-136 H TOTAL (test code = ALKP) [id number] 11:27:00 Test Item Value Reference Range Interpretation Comments LIPASE (test code = LIP) 88 Unit/L 114-286 L CBC W/AUTO [id number] 11:09:00 Test Item Value Reference Range Interpretation [...] = NO DIFF/SCN CRITERIA MDIFF) ANTINUCLEAR ANTIBODIES [id number] 02:42:00 Test Item Value Reference Range Interpretation Comments SEAN DIRECT (test code Negative () = ANADIR) Neg ative <1:80 Borderline 1:8 0 Positive >1:80Performed At: [facility] [place] [place], [place] [id number] ivan Womack MD Ph:[phone] ACUTE HEPATITIS [id number] 02:42:00 Test Item Value Reference Range Interpretation Comments AB HEPATITIS A IGM NON REACTIVE NON REACT. Testing d one at (test code = INDEX [place] HAVMAB) [facility] [address] [place] [address] AB HEPATITIS B <3.1 mIU/mL Immunity>9.9 A Status of SURFACE (test code Immunity = HBSAB) Anti-H Bs Level --- I ncon sistent with Immunity 0.0 - 9.9Consistent w ith Immunity >9.9Performed A t: HD [facility] [address] [place], [place] [id number] Den Womack MD Ph:[phone] ST PERFORMED AT [facility] [address] [place], [place] [address] AG HEPATITIS B NON REACTIVE NonReactive Testing done at SURFACE (test code INDEX [facility] [place] [facility] = HBSAG) [facility] [address] [place] [address] AB HEPATITIS B NON REACTIVE NON REACT. Testing done at CORE IGM (test INDEX CLEAR [place] RE GIONAL code = HBCMAB) [facility] [address] [place] [address] AB HEPATITIS C REACTIVE INDEX NON REACT. A Testing don e at (test code = CLEAR [place]OO[place] ONAL HCVAB) [facility] [address] [place] [address] AB [id number] 02:42:00 Test Item Value Reference Range Interpretation Comments AB <20.0 Units 0.0-20.0 ANTI-MITOCHONDRIAL Ne gative 0.0 - (test code = 20.0 MITOAB) Equi vocal 20.1 - 24.9 Positive >24.9Mitochondr ial (M2) Antibodies are found in 90-96% ofpatien ts with primary biliary cirrhosis.Perfo rmed At: [facility] [id number] ra Ev GOMEZ Ph:[phone] ANTINUCLEAR ANTIBODIES [id number] 16:45:00 Test Item Value Reference Range Interpretation Comments SEAN DIRECT (test code Negative () = ANADIR) Neg ative <1:80 Borderline 1:8 0 Positive >1:80Performed At: [facility] [id number] ivan Womack MD Ph:[phone] ACUTE HEPATITIS [id number] 16:45:00 Test Item Value Reference Range Interpretation Comments AB HEPATITIS A IGM NON REACTIVE NON REACT. Testing d one at (test code = INDEX [place] O[place] HAVMAB) [facility] [address] [place] [address]. [place] [address] AB HEPATITIS B <3.1 mIU/mL Immunity>9.9 A Status of SURFACE (test code Immunity = HBSAB) Anti-H Bs Level --- I ncon sistent with Immunity 0.0 - 9.9Consistent w ith Immunity >9.9Performed A t: [address] [id number] Kyle L MD Ph:[phone] ST PERFORMED AT [facility] [address] [address] [place], [place] [address] AG HEPATITIS B NON REACTIVE NonReactive Testing done at SURFACE (test code INDEX [place] [place] [facility] = HBSAG) [facility] [address] [place] [address]. [place] [address] AB HEPATITIS B NON REACTIVE NON REACT. Testing done at CORE IGM (test INDEX CLEAR HOOKS RE GIONAL code = HBCMAB) [facility] [address] [place] [address]. [place] [address] AB HEPATITIS C REACTIVE INDEX NON REACT. A Testing don e at (test code = CLEAR [place] ONAL HCVAB) [facility] [address] [place] [address] AB [id number] 16:45:00 Test Item Value Reference Range Interpretation Comments AB ANTI-MITOCHONDRIAL (test code = Units 0.0-20.0 MITOAB) [id number] 21:51:00 Test Item Value Reference Range Interpretation Comments GLUBED (test code = GLUBED) 168 mg/dL 70-110 H [id number] 15:58:00 Test Item Value Reference Range Interpretation Comments GLUBED (test code = GLUBED) 168 mg/dL 70-110 H [id number] 07:22:00 Test Item Value Reference Range Interpretation Comments GLUBED (test code = GLUBED) 113 mg/dL 70-110 H CBC W/AUTO [id number] 06:46:00 Test Item Value Reference Range Interpretation [...] BA#) 0.1 K/mm3 0.0-0.2 N COMPREHENSIVE METABOLIC [id number] 06:12:00 Test Item Value Reference Range Interpretation [...] 158 Units/L 50.0-136.0 H code = ALKP) [id number] 06:12:00 Test Item Value Reference Range Interpretation Comments MAGNESIUM (test code = MAG) 2.0 mg/dl 1.8-2.4 N [id number] 23:47:00 Test Item Value Reference Range Interpretation Comments GLUBED (test code = GLUBED) 179 mg/dL 70-110 H ANTINUCLEAR ANTIBODIES [id number] 16:47:00 Test Item Value Reference Range Interpretation Comments SEAN DIRECT (test code = ANADIR) NEGATIVE ACUTE HEPATITIS [id number] 16:47:00 Test Item Value Reference Range Interpretation Comments AB HEPATITIS A IGM NON REACTIVE NON REACT. Testing d one at (test code = INDEX [place] O[place] HAVMAB) [facility] [address] [place] [address] AB HEPATITIS B mIU/mL Immune >9.9 SURFACE (test code = HBSAB) AG HEPATITIS B NON REACTIVE NonReactive Testing done at SURFACE (test code INDEX [place] = HBSAG) [facility] [address] [place] [address], [place] [address] AB HEPATITIS B NON REACTIVE NON REACT. Testing done at CORE IGM (test INDEX CLEAR HOOKS RE GIONAL code = HBCMAB) [facility] [address] [place] [address], [place] [address] AB HEPATITIS C REACTIVE INDEX NON REACT. A Testing don e at (test code = CLEAR HOOKS [place] ONAL HCVAB) [facility] [address] [place] [address]. [place] [address] AB [id number] 16:47:00 Test Item Value Reference Range Interpretation Comments AB ANTI-MITOCHONDRIAL (test code = Units 0.0-20.0 MITOAB) AB HEPATITIS B CORE [id number] 16:41:00 Test Item Value Reference Range Interpretation Comments AB HEPATITIS B CORE IGM NON REACTIVE INDEX NON REACT. (test code = HBCMAB) AB HEPATITIS [id number] 16:41:00 Test Item Value Reference Range Interpretation Comments AB HEPATITIS C (test code = REACTIVE INDEX NON REACT. A HCVAB) AB HEPATITIS A [id number] 16:41:00 Test Item Value Reference Range Interpretation Comments AB HEPATITIS A IGM (test NON REACTIVE INDEX NON REACT. code = HAVMAB) AG HEPATITIS B [id number] 16:41:00 Test Item Value Reference Range Interpretation Comments AG HEPATITIS B SURFACE NON REACTIVE INDEX NonReactive (test code = HBSAG) [id number] 16:40:00 Test Item Value Reference Range Interpretation Comments GLUBED (test code = GLUBED) 167 mg/dL 70-110 H [id number] 13:52:00 Test Item Value Reference Range Interpretation Comments GLUBED (test code = GLUBED) 139 mg/dL 70-110 H VITAMIN [id number] 13:03:00 Test Item Value Reference Range Interpretation Comments VITAMIN B12 (test code = VITB12) 697 pg/mL 193-986 N THYROID STIMULATING [id number] 13:03:00 Test Item Value Reference Range Interpretation Comments THYROID STIMULATING 1.83 IU/ML 0.47-5.01 N Result i s in HORMONE (test code = Interna tional TSH) Units/millilite r [id number] 12:40:00 Test Item Value Reference Range Interpretation Comments HGBA1C% (test code = HGBA1C%) 6.4 %A1C 4.8-6.0 H ESTIMATED AVERAGE GLUCOSE (test 137 MG/DL code = EAG) - US ABDOMEN [id number] 12:20:00 FAX: Beto Urias [phone] [place]: St: [facility] FAX: Leslie Larsen [phone] Name: LUBNA LEACH [facility] : 1965 Age/S: 54/M [address] [facility] Unit #: [id number] Loc: [place], [place] Phys: Geal Garcia [address] Acct: [id number] Dis Date: Status: ADM IN PHONE #: [phone] Exam Date: 05/16/2019 1046 FAX #: [phone] Reason: Elevated LFT Report Has Been Amended EXAMS: CPT CODE: [id number] US ABDOMEN LTD 11785 Addendum - 05/16/2019 SIGNED 05/16/2019 ADDENDUM: [id number] US/USABDLTD Addendum: A typographical air occurred described [...] 1 Signed Report (CONTINUED) FAX: Beto Urias [phone] [place]: St: [facility] FAX: Gael Larsen [phone] Name: LUBNA LEACH [facility] : 1965 Age/S: 54/M [address] [facility] Unit #: [id number] Loc: [place], [place] Phys: Gael Garcia [address] Acct: [id number] Dis Date: Status: ADM IN PHONE #: [phone] Exam Date: 05/16/2019 1046 FAX #: [phone] Reason: Elevated LFT Report Has Been Amended EXAMS: CPT CODE: [id number] US ABDOMEN LTD 06233 <Continued> Impression: No acute abnormality in the right upper quadrant. Liver size slightly enlarged with fatty changes. CT shows slightly nonsmooth margins suggesting the possibility of cirrhosis, as well. No ascites recognized, currently. Location: [facility] Electronically Signed by Stan Smith on 05/16/2019 at 1108 Reported and signed by: Torsten Smith M.D. CC: Beto Boland MD; Gael BARRAZA Technologist: CARLOS ALBERTO HU [facility] Date/Time/By: 05/16/2019 (1386) : By: [facility] PAGE 2 Signed Report FAX: Beto Urias [phone] [place]: St: ADM FAX: Gael Larsen [phone] Name: LUBNA LEACH [facility] : 1965 Age/S: 54/[facility] [address] Unit #: [id number] Loc: [place], [place] Phys: Gael Garcia [address] Acct: [id number] Dis Date: Status: ADM IN PHONE #: [phone] Exam Date: 05/16/2019 1046 FAX #: [phone] Reason: Elevated LFT Report Has Been Amended EXAMS: CPT CODE: [id number] US ABDOMEN LTD [address] <Continued> Orig Print D/T: S: 05/16/2019 (1112) PAGE 3 Signed Report- US ABDOMEN [id number] 11:08:00 FAX: Beto Urias [phone] [place]: St: ADM FAX: Leslie Larsen [phone] Name: LUBNA LEACH [facility] : 1965 Age/S: 54/M [address] [facility] Unit #: [id number] Loc: [place], [place] Phys: Gael Garcia [address] Acct: [id number] Dis Date: Status: ADM IN PHONE #: [phone] Exam Date: 05/16/2019 1046 FAX #: [phone] Reason: Elevated LFT EXAMS: CPT CODE: [id number] US ABDOMEN LTD 79679 ULTRASOUND:- US ABDOMEN LTD History: Elevated liver [...] Technologist: CARLOS ALBERTO HU Trnscrd Date/Time/By: 05/16/2019 (9080) : By: [facility] PAGE 1 Signed Report FAX: Beto Urias [phone] [place]: St: ADM FAX: Gael Larsen [phone] Name: LUBNA LEACH [facility] : 1965 Age/S: 54/M [address] [facility] Unit #: [id number] Loc: [place], [place] Phys: Gael Garcia [address] Acct: [id number] Dis Date: Status: ADM IN PHONE #: [phone] Exam Date: 05/16/2019 1046 FAX #: [phone] Reason: Elevated LFT EXAMS: CPT CODE: [id number] US ABDOMEN LTD [address] <Continued> Orig Print D/T: S: 05/16/2019 (0314) PAGE 2 Signed [id number] 07:18:00 Test Item Value Reference Range Interpretation Comments AMMONIA (test code = AMM) 9.5 MCMOL/L 11.0-32.0 L No sample received in the lab. Please collect if deemednecessary.Thank you!Lab DRUGS OF ABUSE SCREEN [id number] 06:29:00 Test Item Value Reference Interpretation Comments [...] [place]) concentrati on: 300 ng/mL CBC W/MANUAL [id number] 05:08:00 Test Item Value Reference Range Interpretation [...] MORPHOLOGY (test code NORMAL = PLTMORPH) PROTHROMBIN [id number] 01:10:00 Test Item Value Reference Range Interpretation Comments PROTHROMBIN TIME 12.6 SECONDS 9.9-12.8 N PATIENT (test code = PTP) INTERNATIONAL NORMAL 1.1 0.89-1.14 N THE INR IS TO BE USED RATIO (test code = ONLY FOR MONITORING INR) ORAL ANTICOAGULANTTH ERAPY. THE FOLLOWING A RE SUGGESTED RANGE S FROM [facility] LE[facility]ST PHYSICIANS:ANGELA CATION INR [...] 3 .5 Specimen comments: Clean CatchTHROMBOPLASTIN TIME [id number] 01:10:00 Test Item Value Reference Range Interpretation Comments THROMBOPLASTIN TIME 33.50 SECONDS 25.86-36.07 N [facility] PARTIAL (test code = Therape utic Range - PTT) APTT of 55.8-85 .4 secondscorrelat es with plasma heparin concentration o f 0.2-0.4 u/mL Ne w range effective - Specimen comments: Clean CatchBASIC METABOLIC [id number] 01:09:00 Test Item Value Reference Range Interpretation [...] CA) 8.0 mg/dl 8.0-10.5 N Specimen comments: MeroArteHEPATIC FUNCTION PANEL [id number] 01:09:00 Test Item Value Reference Range Interpretation [...] H code = ALKP) Specimen comments: Clean [id number] 01:09:00 Test Item Value Reference Range Interpretation Comments LIPASE (test code = 560 Units/L 65.0-230.0 H 2+ LIPEM IC SAMPLE. LIP) Specimen comments: Clean Yo-Fi WellnessB-TYPE NATRIURETIC [id number] 01:09:00 Test Item Value Reference Range Interpretation Comments B-TYPE NATRIURETIC PEPTIDE (test 33 PG/ML 5-100 N code = BNP) Specimen comments: Clean Yo-Fi WellnessBASIC METABOLIC [id number] 00:59:00 Test Item Value Reference Range Interpretation [...] 8.0 mg/dl 8.0-10.5 N Specimen comments: Clean Yo-Fi WellnessHEPATIC FUNCTION PANEL [id number] 00:59:00 Test Item Value Reference Range Interpretation [...] H code = ALKP) Specimen comments: Clean [id number] 00:59:00 Test Item Value Reference Range Interpretation Comments LIPASE (test code = 560 Units/L 65.0-230.0 H 2+ LIPEM IC SAMPLE. LIP) Specimen comments: Clean CatchB-TYPE NATRIURETIC [id number] 00:59:00 Test Item Value Reference Range Interpretation Comments B-TYPE NATRIURETIC PEPTIDE (test code PG/ML 5-100 = BNP) Specimen comments: Clean CatchBASIC METABOLIC [id number] 00:54:00 Test Item Value Reference Range Interpretation [...] 8.0-10.5 Specimen comments: Clean CatchHEPATIC FUNCTION PANEL [id number] 00:54:00 Test Item Value Reference Range Interpretation [...] 50.0-136.0 code = ALKP) Specimen comments: Clean [id number] 00:54:00 Test Item Value Reference Range Interpretation Comments LIPASE (test code = LIP) Units/L 65.0-230.0 Specimen comments: Clean CatchB-TYPE NATRIURETIC [id number] 00:54:00 Test Item Value Reference Range Interpretation Comments B-TYPE NATRIURETIC PEPTIDE (test code PG/ML 5-100 = BNP) Specimen comments: Clean CatchURINALYSIS [id number] 00:52:00 Test Item Value Reference Range Interpretation [...] NONE BACU) Specimen comments: Clean CatchCBC W/MANUAL [id number] 00:46:00 Test Item Value Reference Range Interpretation [...] code = LYMPH) % 20-40 CBC W/MANUAL [id number] 00:46:00 Test Item Value Reference Range Interpretation [...] (test code = LYMPH) % 20-40 URINALYSIS [id number] 00:45:00 Test Item Value Reference Range Interpretation [...] comments: Clean Catch- CT ABD PELVIS W/O [id number] 23:43:00 FAX: Nathan Prince MD [place]: St: REG Name: LUBNA LEACH [facility] : 1965 Age/S: 54/M [address] [facility] Unit: [id number] Loc: [address] Phys: [place] [address] Acct: [id number] Dis Date: Status: REG ER PHONE #: [phone] Exam Date: 05/15/2019 2316 FAX #: [phone] Reason: ruq pain EXAMS: CPT CODE: [id number] CT ABD PELVIS W/O CONT 83679 CLINICAL HISTORY: Right upper quadrant abdominal pain,shortness [...] Signed Report (CONTINUED) FAX: Nathan Prince MD [place]: St: REG Name: LUBNA LEACH [facility] : 1965 Age/S: 54/M [address] [facility] Unit: [id number] Loc: [address] Phys: [place] [address] Acct: [id number] Dis Date: Status: REG ER PHONE #: [phone] Exam Date: 05/15/2019 2316 FAX #: [phone] Reason: ruq pain EXAMS: CPT CODE: [id number] CT ABD PELVIS W/O CONT 21750 <Continued> This exam was performed according to ourdepartmental dose-optimization program, which includes automated exposure control, adjustment of the mA and/or kV according to patient size and/or use of iterative reconstruction technique at 2343 Reported and signed by: Lennox Purvis M.D. CC: Nathan Prince MD Technologist: STANTON LIZ Trnscrd Dt/Tm: 05/15/2019 (6262) [email or web address] Orig Print D/T: S: 05/15/2019 (2866 PAGE 2 Signed Report- XR CHEST 2 [id number] 23:29:00 FAX: Nathan Prince MD [place]: St: REG Name: LUBNA LEACH [facility] : 1965 Age/S: 54/M [address] [facility] Unit#: [id number] Loc: [address] Phys: [place] [address] Acct: [id number] Dis Date: Status: REG ER PHONE #: [phone] Exam Date: 05/15/2019 2320 FAX #: [phone] Reason: sob EXAMS: CPT CODE: [id number] XR CHEST 2 V 09419 EXAM: - XR CHEST 2 V HISTORY: Shortness of breath. COMPARISON: April 17, 2018. FINDINGS: PA and lateral view of the chest is provided. Heart size and vascularity are within normal limits. There is no focal consolidation. No effusion, pneumothorax, or acute osseous abnormality. IMPRESSION: No consolidation or pleural effusion. at 4245 Reported and signed by: Choco Wells M.D. CC: Nathan Prince MD Technologist: TOO JIMENEZ Trnscrd Date/Time/By: 05/15/2019 (4970) : By: [email or web address] PAGE 1 Signed Report FAX: Nahtan Prince MD [place]: St: REG -- Name: LUBNA LEACH [facility] : 1965 Age/S: 54/M [address] [facility] Unit #: [id number] Loc: [address] Phys: [place] [address] Acct: [id number] Dis Date: Status: REG ER PHONE #: [phone] Exam Date: 05/15/20192319 FAX #: [phone] Reason: sob EXAMS: CPT CODE: [id number] XR CHEST 2 V 59118 <Continued> Orig Print D/T: S: 05/15/2019 (4548) PAGE 2 Signed Report
[2021-09-19] MEDS ORDERED: ONDANSETRON 4 MG/2 ML VIAL ONE (07:46)
[2021-09-19] MEDS ORDERED: FENTANYL CITR 100 MCG/2 ML ONE (07:46)
[2021-09-19 08:03] LABS: Absolute Lymphocytes (CBC) 2.4 K/uL (0.7-4.9); Basophils % 0.9 % (0-1.3); Hematocrit 49.4 % (39.6-49.0); MPV 9.1 fL (7.6-11.3); RBC Red Blood Cell Count 5.34 M/uL (4.33-5.43)
--- NOTE | 2021-09-19 08:22 | RAD REPORT ---
EXAM DESCRIPTION: RAD - Elbow Left 3 View - 09/19/2021 8:11 am CLINICAL HISTORY: PAIN COMPARISON: <Comparisons> FINDINGS: No acute fracture. No malalignment. No significant focal degenerative changes. Hematoma al gianna the dorsal aspect of the elbow. IMPRESSION: No acute osseous abnormality involving the left elbow.
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
[2021-09-19 08:30] LABS: Potassium 4.3 mmol/L (3.5-5.1)
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
[2021-09-19 10:14] VITALS: O2SAT 99
[2021-09-19 10:17] VITALS: BP 138/86; TEMP 98
== END 2021-09-19 09:57 | disposition home or self-care (01) ==
LOC: ER 07:10
DX: S00.83XA Contusion of other part of head, initial encounter (principal); S50.02XA Contusion of left elbow, initial encounter; S40.812A Abrasion of left upper arm, initial encounter; R07.1 Chest pain on breathing; V03.99XA Pedestrian with other conveyance injured in collision with car, pick-up truck or van, unspecified whether traffic or nontraffic accident, initial encounter; I10 Essential (primary) hypertension; E11.9 Type 2 diabetes mellitus without complications; F17.210 Nicotine dependence, cigarettes, uncomplicated
CPT/HCPCS: 85025; 80048; 36415; 86900; 86850; 82565; 86901; 70450; 72125; 71260; 74177; 71045; 73080; 96375; 96374; 99285; Q9967; J3010; J2405

== ENCOUNTER 2021-10-12 15:45 | Emergency (ER) | payer OTHER ==
--- OUTSIDE RECORDS SUMMARY | 2021-10-12 15:51 | XMS REPORT | Continuity of Care Document ---
:1965 Author Organization [facility] t Address [address] [place] [address] Care Team Providers Name Role Phone EMI CORDERO Attending Clinician Unavailable Physician, Primary or Family Admitting Clinician Unavailabl e Payers Payer Name Policy Type Policy Number Effective Date Expiration Date S ource Problems This patient has no known problems. Allergies, Adverse Reactions, Alerts Allergy Allergy Status Severity Reaction(s) Onset Inactive Treating Comm ents Source Name Type Date Date Clinician morphine DA Active NE 2018-0 [facility] 8-27 [place] 00:00: d 00 [facility] morphine DA Active NE REDNESS/ITCH 2018-0 HC A ING TO AREA 8-27 Maryuri an OF INJECTION 00:00: d 00 [facility] No Known DA Active U 2017-0 [facility] Allergie 6-13 [place] s 00:00: d 00 [facility] Medications This patient has no known medications. Procedures This patient has no known procedures. Encounters Start End Encounter Admission Attending Care Care Encounter Source Date/Time Date/Time Type Type Clinicians Facility Department ID 2020-09-07 Inpatient HCAPM NELIDA [id number] [facility] 20:04:00 [facility] [place], [facility] 2020-01-10 Inpatient HCAPM NELIDA [id number] [facility] 11:42:00 [facility] [place], [facility] 2019-11-22 Inpatient HCAPM NELIDA [id number] [facility] 08:41:00 [id number] [facility] [place], operated [facility] 2019-05-12 Inpatient E MANUELA MED 7500 [facility] L 23:36:00 2021-05-19 2021-05-19 Emergency E MANUELA CORDERO BL 7503 [facility] 12:33:00 17:33:00 EMI 2019-11-11 2019-11-11 Emergency E MHSE MHSE 7502 18:37:00 18:37:00 [facility] 2019-10-19 2019-10-19 Emergency E MHSE MHSE 7501 10:27:00 10:27:00 [facility] Results Test Description Test Time Test Comments [...] = MDIFF) NO DIFF/SCN CRITERIA CBC W/AUTO [id number] 20:54:00 Test Item Value Reference Range Interpretation [...] code NO DIFF/SCN CRITERIA = MDIFF) RBC [id number] 20:54:00 Test Item Value Reference Range Interpretation Comments PLATELET MORPHOLOGY (test code = NORMAL PLTMORPH) CBC W/AUTO [id number] 20:54:00 Test Item Value Reference Range Interpretation [...] NO DIFF/SCN CRITERIA = MDIFF) BASIC METABOLIC [id number] 20:47:00 Test Item Value Reference Range Interpretation [...] CA) 8.5 MG/DL 8.5-10.1 N HEPATIC FUNCTION [id number] 20:47:00 Test Item Value Reference Range Interpretation [...] 189 Unit/L 50-136 H code = ALKP) [id number] 20:47:00 Test Item Value Reference Range Interpretation Comments LIPASE (test code = LIP) 219 Unit/L 114-286 N CBC W/AUTO [id number] 20:34:00 Test Item Value Reference Range Interpretation [...] code = DIFF/SCN CRITERIA MDIFF) BASIC METABOLIC [id number] 12:34:00 Test Item Value Reference Range Interpretation [...] CA) 9.5 MG/DL 8.5-10.1 N HEPATIC FUNCTION [id number] 12:34:00 Test Item Value Reference Range Interpretation [...] 291 Unit/L 50-136 H code = ALKP) [id number] 12:34:00 Test Item Value Reference Range Interpretation Comments LIPASE (test code = LIP) 207 Unit/L 114-286 N BASIC METABOLIC [id number] 12:29:00 Test Item Value Reference Range Interpretation [...] CA) 9.5 MG/DL 8.5-10.1 N HEPATIC FUNCTION [id number] 12:29:00 Test Item Value Reference Range Interpretation [...] TOTAL (test Unit/L 50-136 code = ALKP) [id number] 12:29:00 Test Item Value Reference Range Interpretation Comments LIPASE (test code = LIP) 207 Unit/L 114-286 N CBC W/AUTO [id number] 12:17:00 Test Item Value Reference Range Interpretation [...] DIFF/SCN CRITERIA MDIFF) - CT ABD PELVIS [id number] 11:10:00 Name: LUBNA LEACH [facility] : 1965 Age/S: 54 / M [address] Unit #: [id number] Loc: [place] [address] Phys: Nito Golden MD Acct: [id number] Dis Date: Status: REG ER PHONE #: [phone] Exam Date: 11/22/2019 1059 FAX #: Reason: rlq pain EXAMS: CPT: [id number] CT ABD PELVIS W/CONT 82352 LOCATION: T18 EXAM: CT ABDOMEN AND PELVIS [...] 11/22/2019 (1113) PAGE 1 Signed ReportBASIC METABOLIC [id number] 10:40:00 Test Item Value Reference Range Interpretation [...] CA) 9.0 MG/DL 8.5-10.1 N HEPATIC FUNCTION [id number] 10:40:00 Test Item Value Reference Range Interpretation [...] 112 Unit/L 50-136 N code = ALKP) [id number] 10:40:00 Test Item Value Reference Range Interpretation Comments LIPASE (test code = LIP) 106 Unit/L 114-286 L UA RFLX MICR CULT IF [id number] 10:12:00 Test Item Value Reference Range Interpretation [...] URINE: CLEAN CATCHIndication for culture: Dysuria/FrequencyCBC W/AUTO [id number] 09:46:00 Test Item Value Reference Range Interpretation [...] CRITERIA MDIFF) UA RFLX MICR CULT IF [id number] 09:45:00 Test Item Value Reference Range Interpretation [...] URINE: CLEAN CATCHIndication for culture: Dysuria/FrequencyCBC W/AUTO [id number] 23:05:00 Test Item Value Reference Range Interpretation [...] AUTO DIFFERENTIAL. UA RFLX MICR CULT IF [id number] 22:39:00 Test Item Value Reference Range Interpretation [...] CATCHIndication for culture: Dysuria/Frequency- CT ABD PELVIS [id number] 22:30:00 Name: LUBNA LEACH [facility] : 1965 Age/S: 54 / M [address] Unit #: [id number] Loc: [place] [address] Phys: Lino Ordaz MD Acct: [id number] Dis Date: Status: REG ER PHONE #: [phone] Exam Date: 10/14/20192219 FAX #: Reason: abdominal pain EXAMS: CPT: [id number] CT ABD PELVIS W/CONT 74321 EXAM: - CTABD PELVIS W/CONT HISTORY: Abdominal [...] 1 Signed Report (CONTINUED) Name: LUBNA LEACH [facility] [place] : 1965 Age/S: 54 / M [address] [facility] Unit #: [id number] Loc: [place] [address] Phys: Lino Ordaz MD Acct: [id number] Dis Date: Status: REG ER PHONE #: [phone] Exam Date: 10/14/20192219 FAX #: Reason: abdominal pain EXAMS: CPT: [id number] CT ABD PELVIS W/CONT 68192 <Continued> at 2230 Reported and signed by: Choco Wells M.D. CC: Lino Ordaz MD; Nuha BARRAZA Technologist:Leeroy Maldonado RT(R)(CT)(MRI) CTDI: DLP: Trnscb Date/Time: 10/14/2019 (2230) Beka.[email or web address] Orig Print D/T: S: 10/14/2019 (6627) PAGE 2 Signed Report UA RFLX MICR CULT IF [id number] 22:21:00 Test Item Value Reference Range Interpretation [...] CLEAN CATCHIndication for culture: Dysuria/Frequency COMPREHENSIVE METABOLIC [id number] 21:35:00 Test Item Value Reference Range Interpretation [...] code = ALKP) - XR CHEST 1 [id number] 21:30:00 Name: LUBNA LEACH [facility] : 1965 Age/S: 54 / M [address] Unit #: [id number] Loc: [place] [address] Phys: Lino Ordaz MD Acct: [id number] Dis Date: Status: REG ER PHONE #: [phone] Exam Date: 10/14/20192112 FAX #: Reason: liver failure EXAMS: CPT: [id number] XR CHEST 1 V 48296 Fluoro Time: DAP (Gy m2): Air Kerma [...] PAGE 1 Signed Report Name: LUBNA LEACH [facility] : 1965 Age/S: 54 / M [address] Unit #: [id number] Loc: [place] [address] Phys: Lino Ordaz MD Acct: [id number] Dis Date: Status: REG ER PHONE #: [phone] Date: 10/14/20192112 FAX #: Reason: liver failure EXAMS: CPT: [id number] XR CHEST 1 V 83739 Fluoro Time: DAP (Gy m2): Air Kerma (mGy): <Continued> Technologist: Farooq Lang, RT(R)(CT) Trnscb Date/Time: 10/14/2019 (2129) tTAVOR.[email or web address] Orig Print D/T: S: 10/14/2019 (2133) PAGE 2 Signed ReportCBC W/AUTO [id number] 21:25:00 Test Item Value Reference Range Interpretation [...] code = DIFF/SCN CRITERIA MDIFF) COMPREHENSIVE METABOLIC [id number] 21:22:00 Test Item Value Reference Range Interpretation [...] Unit/L 50-136 code = ALKP) CBC W/AUTO [id number] 13:44:00 Test Item Value Reference Range Interpretation [...] AUTO DIFFERENTIAL. UA RFLX MICR CULT IF [id number] 13:13:00 Test Item Value Reference Range Interpretation [...] URINE: CLEAN CATCHIndication for culture: Dysuria/FrequencyBASIC METABOLIC [id number] 13:12:00 Test Item Value Reference Range Interpretation [...] 8.5-10.1 N UA RFLX MICR CULT IF [id number] 13:12:00 Test Item Value Reference Range Interpretation [...] URINE: CLEAN CATCHIndication for culture: Dysuria/FrequencyCBC W/AUTO [id number] 12:59:00 Test Item Value Reference Range Interpretation [...] DIFF/SCN CRITERIA MDIFF) - CT HEAD/BRAIN W/O [id number] 12:55:00 Name: LUBNA LEACH [facility] : 1965 Age/S: 54 / M [address] Unit #: [id number] Loc: [place] [address] Phys: Nito Golden MD Acct: [id number] Dis Date: Status: REG ER PHONE #: [phone] Exam Date: 08/08/2019 1236 FAX #: Reason: headache EXAMS: CPT: [id number] CT HEAD/BRAIN W/O CONT 35821 Site ID: [id number] CT head TECHNIQUE: CT [...] CT. IMPRESSION: No acute intracranial abnormality at 1255 Reported and signed by: Danielle Verduzco M.D. CC: Nito Golden MD Technologist:Refugio Armenta, RT(R)(CT) CTDI: DLP: Trnscb Date/Time: 08/08/2019 (4154) t.SDR.AJP6 Orig Print D/T: S: 08/08/2019 (3077) PAGE 1 Signed ReportTROPONIN I RAPID 2019-07-01 00:13:00 Test Item Value Reference Range Interpretation Comments TROPONIN I RAPID 0.00 ng/mL 0.00-0.08 N - The use o f serial (test code = sampling and te sting TROPIRAP) protocol is a recommended pra ctice- An elevated tro ponin level alone is often not sufficient for diagnosis of my ocardial infarction. HEPATIC FUNCTION [id number] 00:11:00 Test Item Value Reference Range Interpretation [...] code = 27 Unit/L 26-192 N CK) [id number] 00:11:00 Test Item Value Reference Range Interpretation Comments LIPASE (test code = LIP) 230 Unit/L 114-286 N NT PRO-BRAIN NATRIURETIC [id number] 00:11:00 Test Item Value Reference Range Interpretation Comments NT PRO-BRAIN NATRIURETIC PEPTI 137 PG/ML 0-100 H (test code = PROBNP) CHEMISTRY 8 [id number] 00:08:00 Test Item Value Reference Range Interpretation [...] 56-130 N code = GFRBED) CHEMISTRY 8 [id number] 00:08:00 Test Item Value Reference Range Interpretation [...] code = GFRBED) - XR CHEST 1 [id number] 00:03:00 Name: LUBNA LEACH [facility] : 1965 Age/S: 54 / M [address] Unit #: [id number] Loc: [place] [address] Phys: Jethro Rosenthal MD Acct: [id number] Dis Date: Status: REG ER PHONE #: [phone] Exam Date: 06/30/2019 0000 FAX #: Reason: SOB EXAMS: CPT: [id number] XR CHEST 1 V 39063 Fluoro Time: DAP (Gy m2): Air Kerma [...] PAGE 1 Signed Report Name: LUBNA LEACH [facility] : 1965 Age/S: 54 / M [address] [id number] Loc: [place] [address] Phys: Jethro Rosenthal MD Acct: [id number] Dis Date: Status:REG ER PHONE #: [phone] Exam Date: 06/30/2019 0000 FAX #: Reason: SOB EXAMS: CPT: [id number] XR CHEST 1 V 35513 Fluoro Time: DAP (Gy m2): Air Kerma (mGy): <Continued> Technologist: CHILO Melgoza,RVS Trnscb Date/Time: 07/01/2019 (0003) [email or web address] Orig Print D/T: S: 07/01/2019 (0007) PAGE 2 Signed ReportC W/O [id number] 23:55:00 Test Item Value Reference Range Interpretation [...] 7.0-9.6 H MPV) - XR CHEST 1 [id number] 11:34:00 Name: LUBNA LEACH [facility] : 1965 Age/S: 54 / M [address] Unit #: [id number] Loc: [place] [address] Phys: Tejas Feliciano MD Acct: [id number] Dis Date: Status: REG ER PHONE #: [phone] Exam Date: 06/26/2019 1105 FAX #: Reason: sore throat, dyspnea EXAMS: CPT: [id number] XR CHEST 1 V 21320 Fluoro Time: DAP (Gy m2): Air Kerma [...] PAGE 1 Signed Report Name: LUBNA LEACH [facility] : 1965 Age/S: 54 / M [address] Unit #: [id number] Loc: [place] [address] Phys: Tejas Feliciano MD Acct: [id number] Dis Date: Status: REG ER PHONE #: [phone] Exam Date: 06/26/2019 1105 FAX #: Reason: sore throat, dyspnea EXAMS: CPT: [id number] XR CHEST 1 V 79631 Fluoro Time: DAP (Gy m2): Air Kerma (mGy): <Continued> Technologist: Refugio Armenta, RT(R)(CT) Trnscb Date/Time: 06/26/2019 (4944) [email or web address] Orig Print D/T: S: 06/26/2019 (6455) PAGE 2 Signed ReportCOMPREHENSIVE METABOLIC [id number] 11:27:00 Test Item Value Reference Range Interpretation [...] 50-136 H TOTAL (test code = ALKP) [id number] 11:27:00 Test Item Value Reference Range Interpretation Comments LIPASE (test code = LIP) 88 Unit/L 114-286 L CBC W/AUTO [id number] 11:09:00 Test Item Value Reference Range Interpretation [...] = NO DIFF/SCN CRITERIA MDIFF) ANTINUCLEAR ANTIBODIES [id number] 02:42:00 Test Item Value Reference Range Interpretation Comments SEAN DIRECT (test code Negative () = ANADIR) Neg ative <1:80 Borderline 1:8 0 Positive >1:80Performed At: [facility] [place] [address] [place], [place] [id number] ivan Womack MD Ph:[phone] ACUTE HEPATITIS [id number] 02:42:00 Test Item Value Reference Range Interpretation Comments AB HEPATITIS A IGM NON REACTIVE NON REACT. Testing d one at (test code = INDEX CLEAR HOOKS [place] ONAL HAVMAB) [facility] [address] [place] [address]. [place] [address] AB HEPATITIS B <3.1 mIU/mL Immunity>9.9 A Status of SURFACE (test code Immunity = HBSAB) Anti-H Bs Level --- I ncon sistent with Immunity 0.0 - 9.9Consistent w ith Immunity >9.9Performed A t: HD [facility] [address] [place], [place] [id number] Kyle L MD Ph:[phone] ST PERFORMED AT [facility] [address] [place], [place] [address] AG HEPATITIS B NON REACTIVE NonReactive Testing done at SURFACE (test code INDEX [facility]AR [place] [facility]AL = HBSAG) [facility] [address] [place] [address] AB HEPATITIS B NON REACTIVE NON REACT. Testing done at CORE IGM (test INDEX CLEAR HOOKS RE GIONAL code = HBCMAB) [facility] [address] [place] [address] AB HEPATITIS C REACTIVE INDEX NON REACT. A Testing don e at (test code = CLEAR HOOKS [place] ONAL HCVAB) [facility] [address] [place] [address]. [place] [address] AB [id number] 02:42:00 Test Item Value Reference Range Interpretation Comments AB <20.0 Units 0.0-20.0 ANTI-MITOCHONDRIAL Ne gative 0.0 - (test code = 20.0 MITOAB) Equi vocal 20.1 - 24.9 Positive >24.9Mitochondr ial (M2) Antibodies are found in 90-96% ofpatien ts with primary biliary cirrhosis.Perfo rmed At: [facility] [id number] ra Ev GOMEZ Ph:[phone] ANTINUCLEAR ANTIBODIES [id number] 16:45:00 Test Item Value Reference Range Interpretation Comments SEAN DIRECT (test code Negative () = ANADIR) Neg ative <1:80 Borderline 1:8 0 Positive >1:80Performed At: [facility] [address] [id number] ivan Womack MD Ph:[phone] ACUTE HEPATITIS [id number] 16:45:00 Test Item Value Reference Range Interpretation Comments AB HEPATITIS A IGM NON REACTIVE NON REACT. Testing d one at (test code = INDEX CLEAR [place]OO[place] ONAL HAVMAB) [facility] [address] [place] [address] AB HEPATITIS B <3.1 mIU/mL Immunity>9.9 A Status of SURFACE (test code Immunity = HBSAB) Anti-H Bs Level --- I ncon sistent with Immunity 0.0 - 9.9Consistent w ith Immunity >9.9Performed A t: [facility] [address] [id number] Kyle L MD Ph:[phone] ST PERFORMED AT [facility] [place] [address] [place], [place] [address] AG HEPATITIS B NON REACTIVE NonReactive Testing done at SURFACE (test code INDEX [facility]AR [place] [facility]AL = HBSAG) [facility] [address] [place] [address] AB HEPATITIS B NON REACTIVE NON REACT. Testing done at CORE IGM (test INDEX CLEAR HOOKS RE GIONAL code = HBCMAB) [facility] [address] [place] [address] AB HEPATITIS C REACTIVE INDEX NON REACT. A Testing don e at (test code = CLEAR HOOKS [place] ONAL HCVAB) [facility] [address] [place] [id number] AB [id number] 16:45:00 Test Item Value Reference Range Interpretation Comments AB ANTI-MITOCHONDRIAL (test code = Units 0.0-20.0 MITOAB) [id number] 21:51:00 Test Item Value Reference Range Interpretation Comments GLUBED (test code = GLUBED) 168 mg/dL 70-110 H [id number] 15:58:00 Test Item Value Reference Range Interpretation Comments GLUBED (test code = GLUBED) 168 mg/dL 70-110 H [id number] 07:22:00 Test Item Value Reference Range Interpretation Comments GLUBED (test code = GLUBED) 113 mg/dL 70-110 H CBC W/AUTO [id number] 06:46:00 Test Item Value Reference Range Interpretation [...] BA#) 0.1 K/mm3 0.0-0.2 N COMPREHENSIVE METABOLIC [id number] 06:12:00 Test Item Value Reference Range Interpretation [...] 158 Units/L 50.0-136.0 H code = ALKP) [id number] 06:12:00 Test Item Value Reference Range Interpretation Comments MAGNESIUM (test code = MAG) 2.0 mg/dl 1.8-2.4 N [id number] 23:47:00 Test Item Value Reference Range Interpretation Comments GLUBED (test code = GLUBED) 179 mg/dL 70-110 H ANTINUCLEAR ANTIBODIES [id number] 16:47:00 Test Item Value Reference Range Interpretation Comments SEAN DIRECT (test code = ANADIR) NEGATIVE ACUTE HEPATITIS [id number] 16:47:00 Test Item Value Reference Range Interpretation Comments AB HEPATITIS A IGM NON REACTIVE NON REACT. Testing d one at (test code = INDEX CLEAR HOOKS [place] ONAL HAVMAB) [facility] [address] [place] [address]. [facility] [place] [address] AB HEPATITIS B mIU/mL Immune >9.9 SURFACE (test code = HBSAB) AG HEPATITIS B NON REACTIVE NonReactive Testing done at SURFACE (test code INDEX CLEAR [place] [facility]AL = HBSAG) [facility] [address] [place] [address], [place] [address] AB HEPATITIS B NON REACTIVE NON REACT. Testing done at CORE IGM (test INDEX CLEAR HOOKS RE GIONAL code = HBCMAB) [facility] [address] [place] [address], [place] [address] AB HEPATITIS C REACTIVE INDEX NON REACT. A Testing don e at (test code = CLEAR HOOKS [place] ONAL HCVAB) [facility] [address] [place] [address]. [facility] [address] AB [id number] 16:47:00 Test Item Value Reference Range Interpretation Comments AB ANTI-MITOCHONDRIAL (test code = Units 0.0-20.0 MITOAB) AB HEPATITIS A [id number] 16:41:00 Test Item Value Reference Range Interpretation Comments AB HEPATITIS A IGM (test NON REACTIVE INDEX NON REACT. code = HAVMAB) AG HEPATITIS B [id number] 16:41:00 Test Item Value Reference Range Interpretation Comments AG HEPATITIS B SURFACE NON REACTIVE INDEX NonReactive (test code = HBSAG) AB HEPATITIS B CORE [id number] 16:41:00 Test Item Value Reference Range Interpretation Comments AB HEPATITIS B CORE IGM NON REACTIVE INDEX NON REACT. (test code = HBCMAB) AB HEPATITIS [id number] 16:41:00 Test Item Value Reference Range Interpretation Comments AB HEPATITIS C (test code = REACTIVE INDEX NON REACT. A HCVAB) [id number] 16:40:00 Test Item Value Reference Range Interpretation Comments GLUBED (test code = GLUBED) 167 mg/dL 70-110 H [id number] 13:52:00 Test Item Value Reference Range Interpretation Comments GLUBED (test code = GLUBED) 139 mg/dL 70-110 H VITAMIN [id number] 13:03:00 Test Item Value Reference Range Interpretation Comments VITAMIN B12 (test code = VITB12) 697 pg/mL 193-986 N THYROID STIMULATING [id number] 13:03:00 Test Item Value Reference Range Interpretation Comments THYROID STIMULATING 1.83 IU/ML 0.47-5.01 N Result i s in HORMONE (test code = Interna tional TSH) Units/millilite r [id number] 12:40:00 Test Item Value Reference Range Interpretation Comments HGBA1C% (test code = HGBA1C%) 6.4 %A1C 4.8-6.0 H ESTIMATED AVERAGE GLUCOSE (test 137 MG/DL code = EAG) - US ABDOMEN [id number] 12:20:00 FAX: Beto Urias [phone] [place]: St: [facility] FAX: Leslie Larsen [phone] Name: LUBNA LEACH [facility] : 1965 Age/S: 54/M [address] [facility] Unit #: [id number] Loc: [place], [place] Phys: Gael Garcia [address] Acct: [id number] Dis Date: Status: ADM IN PHONE #: [phone] Exam Date: 05/16/2019 1046 FAX #: [phone] Reason: Elevated LFT Report Has Been Amended EXAMS: CPT CODE: [id number] US ABDOMEN LTD 48427 Addendum - 05/16/2019 SIGNED 05/16/2019 ADDENDUM: [id number] US/USABDLTD Addendum: A typographical air occurred described [...] 1 Signed Report (CONTINUED) FAX: Beto Urias [phone] [place]: St: [facility] FAX: Gael Larsen [phone] Name: LUBNA LEACH [facility] : 1965 Age/S: 54/M [address] [facility] Unit #: [id number] Loc: [place], [place] Phys: Gael Garcia [address] Acct: [id number] Dis Date: Status: ADM IN PHONE #: [phone] Exam Date: 05/16/2019 1046 FAX #: [phone] Reason: Elevated LFT Report Has Been Amended EXAMS: CPT CODE: [id number] US ABDOMEN LTD 00856 <Continued> Impression: No acute abnormality in the right upper quadrant. Liver size slightly enlarged with fatty changes. CT shows slightly nonsmooth margins suggesting the possibility of cirrhosis, as well. No ascites recognized, currently. Location: 9 Electronically Signed by Stan Smith on 05/16/2019 at 1108 Reported and signed by: Torsten Smith M.D. CC: Beto Boland MD; Gael BARRAZA Technologist: CARLOS ALBERTO HU [facility] Date/Time/By: 05/16/2019 (1104) : By: [facility] PAGE 2 Signed Report FAX: Beto Urias [phone] [place]: St: [facility] FAX: Gael Larsen [phone] Name: LUBNA LEACH [facility] : 1965 Age/S: 54/[facility] [address] Unit #: [id number] Loc: [place], [place] Phys: Gael Garcia [address] Acct: [id number] Dis Date: Status: ADM IN PHONE #: [phone] Exam Date: 05/16/2019 1046 FAX #: [phone] Reason: Elevated LFT Report Has Been Amended EXAMS: CPT CODE: [id number] US ABDOMEN LTD [address] <Continued> Orig Print D/T: S: 05/16/2019 (1112) PAGE 3 Signed Report- US ABDOMEN [id number] 11:08:00 FAX: Beto Urias [phone] [place]: St: [facility] FAX: Leslie Larsen [phone] Name: LUBNA LEACH [facility] : 1965 Age/S: 54/M [address] [facility] Unit #: [id number] Loc: [place], [place] Phys: Gael Garcia [address] Acct: [id number] Dis Date: Status: ADM IN PHONE #: [phone] Exam Date: 05/16/2019 1046 FAX #: [phone] Reason: Elevated LFT EXAMS: CPT CODE: [id number] US ABDOMEN LTD [address] ULTRASOUND:- US ABDOMEN LTD History: Elevated liver [...] Boland MD; Gael BARRAZA Technologist: CARLOS ALBERTO [facility] Trnscrd Date/Time/By: 05/16/2019 (6212) : By: [facility] PAGE 1 Signed Report FAX: Beto Urias [phone] [place]: St: ADM FAX: Gael Larsen [phone] Name: LUBNA LEACH [facility] : 1965 Age/S: 54/M [address] [facility] Unit #: [id number] Loc: [place], [place] Phys: Gael Garcia [address] Acct: [id number] Dis Date: Status: ADM IN PHONE #: [phone] Exam Date: 05/16/2019 1046 FAX #: [phone] Reason: Elevated LFT EXAMS: CPT CODE: [id number] US ABDOMEN LTD [address] <Continued> Orig Print D/T: S: 05/16/2019 (3126) PAGE 2 Signed [id number] 07:18:00 Test Item Value Reference Range Interpretation Comments AMMONIA (test code = AMM) 9.5 MCMOL/L 11.0-32.0 L No sample received in the lab. Please collect if deemednecessary.Thank you!Lab DRUGS OF ABUSE SCREEN [id number] 06:29:00 Test Item Value Reference Interpretation Comments [...] [place]) concentrati on: 300 ng/mL CBC W/MANUAL [id number] 05:08:00 Test Item Value Reference Range Interpretation [...] MORPHOLOGY (test code NORMAL = PLTMORPH) PROTHROMBIN [id number] 01:10:00 Test Item Value Reference Range Interpretation Comments PROTHROMBIN TIME 12.6 SECONDS 9.9-12.8 N PATIENT (test code = PTP) INTERNATIONAL NORMAL 1.1 0.89-1.14 N THE INR IS TO BE USED RATIO (test code = ONLY FOR MONITORING INR) ORAL ANTICOAGULANTTH ERAPY. THE FOLLOWING A RE SUGGESTED RANGE [facility] LE[facility]:ANGELA CATION INR [...] 3 .5 Specimen comments: Clean CatchTHROMBOPLASTIN TIME [id number] 01:10:00 Test Item Value Reference Range Interpretation Comments THROMBOPLASTIN TIME 33.50 SECONDS 25.86-36.07 N [facility] PARTIAL (test code = Therape utic Range - PTT) APTT of 55.8-85 .4 secondscorrelat es with plasma heparin concentration o f 0.2-0.4 u/mL Ne w range effective - Specimen comments: Clean CatchBASIC METABOLIC [id number] 01:09:00 Test Item Value Reference Range Interpretation [...] 8.0 mg/dl 8.0-10.5 N Specimen comments: Clean Accelerated IOHEPATIC FUNCTION PANEL [id number] 01:09:00 Test Item Value Reference Range Interpretation [...] H code = ALKP) Specimen comments: Clean [id number] 01:09:00 Test Item Value Reference Range Interpretation Comments LIPASE (test code = 560 Units/L 65.0-230.0 H 2+ LIPEM IC SAMPLE. LIP) Specimen comments: Clean CatchB-TYPE NATRIURETIC [id number] 01:09:00 Test Item Value Reference Range Interpretation Comments B-TYPE NATRIURETIC PEPTIDE (test 33 PG/ML 5-100 N code = BNP) Specimen comments: Clean Accelerated IOBASIC METABOLIC [id number] 00:59:00 Test Item Value Reference Range Interpretation [...] N Specimen comments: Clean CatchHEPATIC FUNCTION PANEL [id number] 00:59:00 Test Item Value Reference Range Interpretation [...] H code = ALKP) Specimen comments: Clean [id number] 00:59:00 Test Item Value Reference Range Interpretation Comments LIPASE (test code = 560 Units/L 65.0-230.0 H 2+ LIPEM IC SAMPLE. LIP) Specimen comments: Clean CatchB-TYPE NATRIURETIC [id number] 00:59:00 Test Item Value Reference Range Interpretation Comments B-TYPE NATRIURETIC PEPTIDE (test code PG/ML 5-100 = BNP) Specimen comments: Clean CatchBASIC METABOLIC [id number] 00:54:00 Test Item Value Reference Range Interpretation [...] = CA) mg/dl 8.0-10.5 Specimen comments: Clean Accelerated IOHEPATIC FUNCTION PANEL [id number] 00:54:00 Test Item Value Reference Range Interpretation [...] 50.0-136.0 code = ALKP) Specimen comments: Clean [id number] 00:54:00 Test Item Value Reference Range Interpretation Comments LIPASE (test code = LIP) Units/L 65.0-230.0 Specimen comments: Clean CatchB-TYPE NATRIURETIC [id number] 00:54:00 Test Item Value Reference Range Interpretation Comments B-TYPE NATRIURETIC PEPTIDE (test code PG/ML 5-100 = BNP) Specimen comments: Clean CatchURINALYSIS [id number] 00:52:00 Test Item Value Reference Range Interpretation [...] NONE BACU) Specimen comments: Clean CatchCBC W/MANUAL [id number] 00:46:00 Test Item Value Reference Range Interpretation [...] code = LYMPH) % 20-40 CBC W/MANUAL [id number] 00:46:00 Test Item Value Reference Range Interpretation [...] (test code = LYMPH) % 20-40 URINALYSIS [id number] 00:45:00 Test Item Value Reference Range Interpretation [...] comments: Clean Catch- CT ABD PELVIS W/O [id number] 23:43:00 FAX: Nathan Prince MD [place]: St: REG Name: LUBNA LEACH [facility] : 1965 Age/S: 54/M [address] [facility] Unit: [id number] Loc: [address] Phys: [place] [address] Acct: [id number] Dis Date: Status: REG ER PHONE #: [phone] Exam Date: 05/15/2019 2316 FAX #: [phone] Reason: ruq pain EXAMS: CPT CODE: [id number] CT ABD PELVIS W/O CONT 94116 CLINICAL HISTORY: Right upper quadrant abdominal pain,shortness [...] Signed Report (CONTINUED) FAX: Nathan Prince MD [place]: St: REG Name: LUBNA LEACH [facility] : 1965 Age/S: 54/M [address] [facility] Unit: [id number] Loc: [address] Phys: [place] [address] Acct: [id number] Dis Date: Status: REG ER PHONE #: [phone] Exam Date: 05/15/2019 2316 FAX #: [phone] Reason: ruq pain EXAMS: CPT CODE: [id number] CT ABD PELVIS W/O CONT 38192 <Continued> This exam was performed according to ourdepartmental dose-optimization program, which includes automated exposure control, adjustment of the mA and/or kV according to patient size and/or use of iterative reconstruction technique at 5803 Reported and signed by: Lennox Purvis M.D. CC: Natahn Prince MD Technologist: STANTON Good Dt/Tm: 05/15/2019 (9833) [email or web address] Orig Print D/T: S: 05/15/2019 (2050 PAGE 2 Signed Report- XR CHEST 2 [id number] 23:29:00 FAX: Nathan Prince MD [place]: St: REG Name: LUBNA LEACH [facility] : 1965 Age/S: 54/M [address] [facility] Unit#: [id number] Loc: E.ERS[address] [place], [place] Phys: [place] [address] Acct: [id number] Dis Date: Status: REG ER PHONE #: [phone] Exam Date: 05/15/2019 2320 FAX #: [phone] Reason: sob EXAMS: CPT CODE: [id number] XR CHEST 2 V 30820 EXAM: - XR CHEST 2 V HISTORY: Shortness of breath. COMPARISON: April 17, 2018. FINDINGS: PA and lateral view of the chest is provided. Heart size and vascularity are within normal limits. There is no focal consolidation. No effusion, pneumothorax, or acute osseous abnormality. IMPRESSION: No consolidation or pleural effusion. at 3409 Reported and signed by: Choco Wells M.D. CC: Nathan Prince MD Technologist: TOO JIMENEZ Trnscrd Date/Time/By: 05/15/2019 (9304) : By: [email or web address] PAGE 1 Signed Report FAX: Nathan Prince MD [place]: St: REG -- Name: HAYLEELUBNA ORTEGA [facility] : 1965 Age/S: 54/M [address] [facility] Unit #: [id number] Loc: [address] Phys: [place] [address] Acct: [id number] Dis Date: Status: REG ER PHONE #: [phone] Exam Date: 05/15/2019 2320 FAX #: [phone] Reason: sob EXAMS: CPT CODE: [id number] XR CHEST 2 V 44220 <Continued> Orig Print D/T: S: 05/15/2019 (7576) PAGE 2 Signed Report
[2021-10-12] MEDS ORDERED: IBUPROFEN 400 MG TAB ONE (16:07)
[2021-10-12] MEDS ORDERED: LIDOCAINE 1% W/EPI 1:100,000 MDV 20 ML VIAL ONE (16:33)
--- NOTE | 2021-10-12 16:55 | RAD REPORT ---
EXAM DESCRIPTION: RAD - Wrist Left 3 View - 10/12/2021 4:30 pm CLINICAL HISTORY: PAIN COMPARISON: <Comparisons> FINDINGS: Small radiopaque foreign bodies within the soft tissues of the wrist along the dorsal aspe ct overlying the ulna. No fractures identified. Degenerative changes are present at the first carpal metacarpal joint. IMPRESSION: No acute osseous abnormality involving the left wrist. Small superficial radiopaque fore ign bodies within the dorsal soft tissues of the wrist.
--- NOTE | 2021-10-12 17:04 | ER ---
Nurse's Notes [facility] Name: Huber Augustine Age: 56 yrs Sex: Male : 1965 Arrival Date: 10/12/2021 Time: 15:47 Bed 2 Private MD: Diagnosis: Laceration with foreign body of left wrist, initial encounter Presentation: 10/12 15:47 Chief complaint:. tw2 15:49 Chief complaint: Patient states: Pt states that he hit his lt arm with a grinder hand and jh6 started bleeding. 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 Coronavirus screen: Client denies travel out of the [place] in the last 14 days. At this time, the client does not indicate any symptoms associated with coronavirus-19. Ebola Screen: No symptoms or risks identified at this time. Complicating Factors: power grinder hand. Initial Sepsis Screen: Does the patient meet any 2 criteria? No. Patient's initial sepsis screen is negative. Does the patient have a suspected source of infection? No. Patient's initial sepsis screen is negative. Risk Assessment: Do you want to hurt yourself or someone else? Patient reports no desire to harm self or others. Onset of symptoms was October 12, 2021. 15:49 Method Of Arrival: EMS: [facility] 15:49 Acuity: ROSALEE 4 jh6 Triage Assessment: 15:55 General: Appears in no apparent distress. Behavior is calm, cooperative. Pain: jh6 Complains of pain in dorsal aspect of left forearm Pain currently is 3 out of 10 on a pain scale. Quality of pain is described as sharp, Pain began suddenly, Is continuous, Noted to be. Historical: - Allergies: 16:34 No Known Allergies; tw2 - PMHx: 16:34 Diabetes mellitus; Neuropathy; tw2 - Immunization history:: Adult Immunizations up to date, Client reports having NOT received the Covid vaccine. Last tetanus immunization: up to date. - Social history:: Smoking status: Patient reports the use of cigarette tobacco products, smokes one-half pack cigarettes per day. Screenin:55 Abuse screen: Denies threats or abuse. Nutritional screening: No deficits noted. tw2 Tuberculosis screening: No symptoms or risk factors identified. Fall Risk None identified. Assessment: 16:01 Musculoskeletal: Circulation, motion, and sensation intact. Range of motion: intact in tw2 all extremities. Injury Description: Laceration sustained to left arm and dorsal aspect of left forearm is clean, 0.5 to 2.5 cm long, not bleeding. Vital Signs: 15:49 BP 142 / 71; Pulse 82; Resp 20; Temp 97.6; Pulse Ox 98% on R/A; Weight 81.65 kg; Height 6 6 ft. 0 in. (182.88 cm); Pain 3/10; 15:49 Body Mass Index 24.41 (81.65 kg, 182.88 cm) 6 ED Course: 15:45 Arm band placed on. 6 15:45 wound cleaned with soap and water. irrigated with sialine. small 2cm lac to lt jh6 posterior fa. 15:47 Patient arrived in ED. tw2 15:47 Bed in low position. Call light in reach. Side rails up X2. Pulse ox on. NIBP on. tw2 15:49 Linda Dick, CHANELLE is Primary Nurse. [facility] 15:54 Triage completed. [facility] 15:59 Wisam Lowry PA is PHCP. cp 15:59 Aleksey Verduzco MD is Attending Physician. cp 16:30 XRAY Wrist LEFT 3 view In Process Unspecified. EDMS 17:10 No provider procedures requiring assistance completed. Patient did not have IV access tw2 during this emergency room visit. 17:10 Dressings: non-adherent dressing x 1 left arm and dorsal aspect of left forearm 4X4s X tw2 1; left arm and dorsal aspect of left forearm secured with coban. pt given supplies and instructed on wound care. Wound care:. Administered Medications: 16:00 Drug: Motrin (ibuprofen) 800 mg Route: PO; jh6 17:10 Follow up: Response: No adverse reaction tw2 16:38 Drug: Lidocaine-Epinephrine -1%: (1:100,000) 10 ml {Note: by MADI Peters.} Volume: 20 tw2 ml; Route: Infiltration; Outcome: 17:03 Discharge ordered by . cp 17:10 Discharged to home ambulatory. tw2 17:10 Condition: stable 17:10 Discharge instructions given to patient, Instructed on discharge instructions, follow up and referral plans. medication usage, safety practices, wound care, Demonstrated understanding of instructions, follow-up care, medications, wound care, Prescriptions given X 2. 17:11 Patient left the ED. tw2 Signatures: Dispatcher [employer] EDMS Wisam Lowry PA PA cp Wise, Tara, RN RN 2 Linda Dick RN RN 6 Corrections: (The following items were deleted from the chart) 15:55 15:54 PMHx: neuropathy; [place] [address] 15:55 15:54 PMHx: Hypertension; [place] [address] 15:55 15:54 PMHx: Diabetes - NIDDM; [place] [address] 15:55 15:54 PMHx: liver cancer; [facility]6
--- NOTE | 2021-10-12 17:04 | EDPHYS ---
Physician Documentation [facility] Name: Huber Augustine Age: 56 yrs Sex: Male : 1965 Arrival Date: 10/12/2021 Time: 15:47 Bed 2 Private MD: ED Physician Aleksey Verduzco HPI: 10/12 16:10 This 56 yrs old Male presents to ER via EMS with complaints of Laceration To Arm. 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 The cp laceration(s) is(are) located on the dorsal aspect of left wrist. Onset: The symptoms/episode began/occurred today. Associated signs and symptoms: Pertinent negatives: deformity, heavy bleeding, numbness distal to injury. Historical: - Allergies: 16:34 No Known Allergies; tw2 - PMHx: 16:34 Diabetes mellitus; Neuropathy; tw2 - Immunization history:: Adult Immunizations up to date, Client reports having NOT received the Covid vaccine. Last tetanus immunization: up to date. - Social history:: Smoking status: Patient reports the use of cigarette tobacco products, smokes one-half pack cigarettes per day. ROS: 16:15 Skin: Positive for laceration(s), of the dorsal aspect of left wrist. cp 16:15 Neck: Negative for pain with movement, pain at rest. cp 16:15 Back: Negative for pain at rest, pain with movement. 16:15 Constitutional: Negative for body aches, chills, fever, poor PO intake. cp 16:15 Cardiovascular: Negative for chest pain, palpitations. 16:15 Respiratory: Negative for cough, shortness of breath, wheezing. cp 16:15 Abdomen/GI: Negative for abdominal pain, nausea, vomiting, and diarrhea. 16:15 All other systems are negative. Exam: 16:20 Constitutional: The patient appears in no acute distress, alert, awake, well developed, cp well nourished. 16:20 Head/Face: Normocephalic, atraumatic. cp 16:20 Cardiovascular: Rate: normal, Pulses: Pulses are 2+ in left radial artery. 16:20 Respiratory: the patient does not display signs of respiratory distress, Respirations: normal, no use of accessory muscles, no retractions, labored breathing, is not present. 16:20 Musculoskeletal/extremity: ROM: full active range of motion, in the left hand, Perfusion: the extremity is normally perfused throughout, Sensation intact. 16:20 Skin: injury, laceration(s), of the dorsal aspect of left wrist, that can be described as foreign body containing, linear, with mild bleeding. Vital Signs: 15:49 BP 142 / 71; Pulse 82; Resp 20; Temp 97.6; Pulse Ox 98% on R/A; Weight 81.65 kg; Height jh6 6 ft. 0 in. (182.88 cm); Pain 3/10; 15:49 Body Mass Index 24.41 (81.65 kg, 182.88 cm) 6 Laceration: 17:01 Wound Repair of 4cm ( 1.6in ) subcutaneous laceration to dorsal aspect left wrist. cp Linear shaped.. Distal neuro/vascular/tendon intact. Anesthesia: Wound infiltrated with 5 mls of 1% lidocaine w/ Epi. Wound prep: Moderate cleansing by me, Wound irrigation by me, Particulate matter removal of metal. Skin closed with 6 4-0 Prolene using interrupted sutures and sterile technique. Dressed with Bacitracin, 4x4's. Patient tolerated well. MDM: 16:03 Patient medically screened. cp 17:03 Data reviewed: vital signs, nurses notes, radiologic studies, plain films. cp 17:03 Test interpretation: by ED physician or midlevel provider: plain radiologic studies. cp Counseling: I had a detailed discussion with the patient and/or guardian regarding: the historical points, exam findings, and any diagnostic results supporting the discharge/admit diagnosis, radiology results, to return to the emergency department if symptoms worsen or persist or if there are any questions or concerns that arise at home. 12 15:59 Order name: XRAY Wrist LEFT 3 view; Complete Time: 17:01 cp 12 15:59 Order name: Wound Care: please clean and irrigate wound; Complete Time: 16:00 cp 10/12 16:23 Order name: Dressing - Wound; Complete Time: 17:10 cp 10/12 16:23 Order name: Gloves, Sterile; Complete Time: 16:34 cp 10/12 16:23 Order name: Setup Suture Tray; Complete Time: 16:38 cp Administered Medications: 16:00 Drug: Motrin (ibuprofen) 800 mg Route: PO; [facility] 17:10 Follow up: Response: No adverse reaction tw2 16:38 Drug: Lidocaine-Epinephrine -1%: (1:100,000) 10 ml {Note: by MADI Peters.} Volume: 20 tw2 ml; Route: Infiltration; Disposition: 17:20 Chart complete. cp 22:36 Co-signature as Attending Physician, Aleksey Verduzco MD I agree with the assessment and sp3 plan of care. Disposition Summary: 10/12/21 17:03 Discharge Ordered Location: Home cp Problem: new cp Symptoms: have improved cp Condition: Stable cp Diagnosis - Laceration with foreign body of left wrist, initial encounter cp Followup: cp - With: Private Physician - When: 10 - 14 days - Reason: Staple/Suture removal Discharge Instructions: - Discharge Summary Sheet cp - Laceration Care, Adult cp Forms: - Medication Reconciliation Form cp - Thank You Letter cp - Antibiotic Education cp - Prescription Opioid Use cp Prescriptions: - cephalexin 500 mg Oral capsule - take 1 capsule by ORAL route every 8 hours for 10 days; 30 capsule; Refills: 0, cp Product Selection Permitted - Ibuprofen 800 mg Oral Tablet - take 1 tablet by ORAL route every 8 hours As needed take with food; 30 tablet; cp Refills: 0, Product Selection Permitted Signatures: Dispatcher [employer] EDMS Wisam Lowry PA PA cp Kristi Reyes RN RN tw2 Aleksey Verduzco MD MD sp3 Linda Dick RN RN 6 Corrections: (The following items were deleted from the chart) 15:55 15:54 PMHx: neuropathy; [place] [address] 15:55 15:54 PMHx: Hypertension; [place] [address] 15:55 15:54 PMHx: Diabetes - NIDDM; [place] [address] 15:55 15:54 PMHx: liver cancer; [place] [address] 12 15:38 12 16:15 All other systems are negative, cp cp
[2021-10-12 17:31] VITALS: BP 142/71; TEMP 97.6; O2SAT 98
== END 2021-10-12 17:11 | disposition home or self-care (01) ==
LOC: ER 15:45
PROC: 0JQH0ZZ Repair Left Lower Arm Subcutaneous Tissue and Fascia, Open Approach (ICD-10-PCS; principal; 2021-10-12)
DX: S61.512A Laceration without foreign body of left wrist, initial encounter (principal); W45.8XXA Other foreign body or object entering through skin, initial encounter; E11.40 Type 2 diabetes mellitus with diabetic neuropathy, unspecified; F17.210 Nicotine dependence, cigarettes, uncomplicated
CPT/HCPCS: 99284

== ENCOUNTER 2022-03-11 09:35 | Emergency (ER) | payer OTHER ==
--- OUTSIDE RECORDS SUMMARY | 2022-03-11 09:40 | XMS REPORT | Continuity of Care Document ---
:1965 Author Organization [facility] t Address [address] [place] [address] Care Team Providers Name Role Phone SAHRA CORDERO Attending Clinician Unavailable Physician, Primary or Family Admitting Clinician Unavailabl e Payers Payer Name Policy Type Policy Number Effective Date Expiration Date S ource Problems This patient has no known problems. Allergies, Adverse Reactions, Alerts Allergy Allergy Status Severity Reaction(s) Onset Inactive Treating Comm ents Source Name Type Date Date Clinician morphine DA Active PA 2018-0 [facility] 8-27 [place] 00:00: d 00 [facility] [place] morphine DA Active PA REDNESS/ITCH HC A ING TO AREA 8-27 Maryuri an OF INJECTION 00:00: d 00 [facility] [place] No Known DA Active U 2017-0 [facility] Allergie 6-13 [place] s 00:00: d 00 [facility] Medications This patient has no known medications. Procedures This patient has no known procedures. Encounters Start End Encounter Admission Attending Care Care Encounter Source Date/Time Date/Time Type Type Clinicians Facility Department ID 2020-09-07 Inpatient HCAPM NELIDA [id number] [facility] 20:04:00 [facility] 2020-01-10 Inpatient HCAPM NELIDA [id number] [facility] 11:42:00 [facility] 2019-11-22 Inpatient HCAPM NELIDA [id number] [facility] 08:41:00 [id number] [facility] 2019-05-12 Inpatient E MANUELA MED 7500 MHB L 23:36:00 2021-05-19 2021-05-19 Emergency E MANUELA CORDERO 7503 MANUELA 12:33:00 17:33:00 EMI 2019-11-11 2019-11-11 Emergency E MHSE MHSE 7502 18:37:00 18:37:[facility] 2019-10-19 2019-10-19 Emergency E MHSE SE 7501 10:27:00 10:27:00 [facility] Results Test Description Test Time Test Comments [...] = MDIFF) NO DIFF/SCN CRITERIA CBC W/AUTO [id number] 20:54:00 Test Item Value Reference Range Interpretation [...] code NO DIFF/SCN CRITERIA = MDIFF) RBC [id number] 20:54:00 Test Item Value Reference Range Interpretation Comments PLATELET MORPHOLOGY (test code = NORMAL PLTMORPH) CBC W/AUTO [id number] 20:54:00 Test Item Value Reference Range Interpretation [...] NO DIFF/SCN CRITERIA = MDIFF) BASIC METABOLIC [id number] 20:47:00 Test Item Value Reference Range Interpretation [...] CA) 8.5 MG/DL 8.5-10.1 N HEPATIC FUNCTION [id number] 20:47:00 Test Item Value Reference Range Interpretation [...] 189 Unit/L 50-136 H code = ALKP) [id number] 20:47:00 Test Item Value Reference Range Interpretation Comments LIPASE (test code = LIP) 219 Unit/L 114-286 N CBC W/AUTO [id number] 20:34:00 Test Item Value Reference Range Interpretation [...] code = DIFF/SCN CRITERIA MDIFF) BASIC METABOLIC [id number] 12:34:00 Test Item Value Reference Range Interpretation [...] CA) 9.5 MG/DL 8.5-10.1 N HEPATIC FUNCTION [id number] 12:34:00 Test Item Value Reference Range Interpretation [...] 291 Unit/L 50-136 H code = ALKP) [id number] 12:34:00 Test Item Value Reference Range Interpretation Comments LIPASE (test code = LIP) 207 Unit/L 114-286 N BASIC METABOLIC [id number] 12:29:00 Test Item Value Reference Range Interpretation [...] CA) 9.5 MG/DL 8.5-10.1 N HEPATIC FUNCTION [id number] 12:29:00 Test Item Value Reference Range Interpretation [...] TOTAL (test Unit/L 50-136 code = ALKP) [id number] 12:29:00 Test Item Value Reference Range Interpretation Comments LIPASE (test code = LIP) 207 Unit/L 114-286 N CBC W/AUTO [id number] 12:17:00 Test Item Value Reference Range Interpretation [...] DIFF/SCN CRITERIA MDIFF) - CT ABD PELVIS [id number] 11:10:00 Name: LUBNA LEACH [facility] : 1965 Age/S: 54 / M [address] Unit #: [id number] Loc: [place] [address] Phys: Nito Golden MD Acct: [id number] Dis Date: Status: REG ER PHONE #: [phone] Exam Date: 11/22/2019 1053 FAX #: Reason: rlq pain EXAMS: CPT: [id number] CT ABD PELVIS W/CONT 14347 LOCATION: T18 EXAM: CT ABDOMEN AND PELVIS [...] 11/22/2019 (1113) PAGE 1 Signed ReportBASIC METABOLIC [id number] 10:40:00 Test Item Value Reference Range Interpretation [...] CA) 9.0 MG/DL 8.5-10.1 N HEPATIC FUNCTION [id number] 10:40:00 Test Item Value Reference Range Interpretation [...] 112 Unit/L 50-136 N code = ALKP) [id number] 10:40:00 Test Item Value Reference Range Interpretation Comments LIPASE (test code = LIP) 106 Unit/L 114-286 L UA RFLX MICR CULT IF [id number] 10:12:00 Test Item Value Reference Range Interpretation [...] URINE: CLEAN CATCHIndication for culture: Dysuria/FrequencyCBC W/AUTO [id number] 09:46:00 Test Item Value Reference Range Interpretation [...] CRITERIA MDIFF) UA RFLX MICR CULT IF [id number] 09:45:00 Test Item Value Reference Range Interpretation [...] URINE: CLEAN CATCHIndication for culture: Dysuria/FrequencyCBC W/AUTO [id number] 23:05:00 Test Item Value Reference Range Interpretation [...] AUTO DIFFERENTIAL. UA RFLX MICR CULT IF [id number] 22:39:00 Test Item Value Reference Range Interpretation [...] CATCHIndication for culture: Dysuria/Frequency- CT ABD PELVIS [id number] 22:30:00 Name: LUBNA LEACH [facility]ly [facility] : 1965 Age/S: 54 / M [address] Unit #: [id number] Loc: [place] [address] Phys: Lino Ordaz MD Acct: [id number] Dis Date: Status: REG ER PHONE #: [phone] Exam Date: 10/14/20192219 FAX #: Reason: abdominal pain EXAMS: CPT: [id number] CT ABD PELVIS W/CONT 75516 EXAM: - CTABD PELVIS W/CONT HISTORY: Abdominal [...] Signed Report (CONTINUED) Name: LUBNA LEACH [facility] : 1965 Age/S: 54 / M [address] [facility] Unit #: [id number] Loc: [place] [address] Phys: Lino Ordaz MD Acct: [id number] Dis Date: Status: REG ER PHONE #: [phone] Exam Date: 10/14/20192219 FAX #: Reason: abdominal pain EXAMS: CPT: [id number] CT ABD PELVIS W/CONT 70884 <Continued> at 2230 Reported and signed by: Choco Wells M.D. CC: Lino Ordaz MD; Nuha BARRAZA Technologist:Leeroy Maldonado, RT(R)(CT)(MRI) CTDI: DLP: Trnscb Date/Time: 10/14/2019 (2230) [email or web address] Orig Print D/T: S: 10/14/2019 (8310) PAGE 2 Signed Report UA RFLX MICR CULT IF [id number] 22:21:00 Test Item Value Reference Range Interpretation [...] CLEAN CATCHIndication for culture: Dysuria/Frequency COMPREHENSIVE METABOLIC [id number] 21:35:00 Test Item Value Reference Range Interpretation [...] code = ALKP) - XR CHEST 1 [id number] 21:30:00 Name: LUBNA LEACH [facility] : 1965 Age/S: 54 / M [address] Unit #: [id number] Loc: [place] [address] Phys: Lino Ordaz MD Acct: [id number] Dis Date: Status: REG ER PHONE #: [phone] Exam Date: 10/14/20192112 FAX #: Reason: liver failure EXAMS: CPT: [id number] XR CHEST 1 V 57999 Fluoro Time: DAP (Gy m2): Air Kerma [...] chest. at 2130 Reported and signed by: Sahra Carlos M.D. CC: Lino Ordaz MD; Nuha BARRAZA PAGE 1 Signed Report Name: LUBNA LEACH [facility] : 1965 Age/S: 54 / M [address] Unit #: [id number] Loc: [place] [address] Phys: Lino Ordaz MD Acct: [id number] Dis Date: Status: REG ER PHONE #: [phone] Date: 10/14/20192112 FAX #: Reason: liver failure EXAMS: CPT: [id number] XR CHEST 1 V 29047 Fluoro Time: DAP (Gy m2): Air Kerma (mGy): <Continued> Technologist: Farooq Lang, RT(R)(CT) Trnscb Date/Time: 10/14/2019 (2129) [email or web address] Orig Print D/T: S: 10/14/2019 (2133) PAGE 2 Signed ReportCBC W/AUTO [id number] 21:25:00 Test Item Value Reference Range Interpretation [...] code = DIFF/SCN CRITERIA MDIFF) COMPREHENSIVE METABOLIC [id number] 21:22:00 Test Item Value Reference Range Interpretation [...] Unit/L 50-136 code = ALKP) CBC W/AUTO [id number] 13:44:00 Test Item Value Reference Range Interpretation [...] AUTO DIFFERENTIAL. UA RFLX MICR CULT IF [id number] 13:13:00 Test Item Value Reference Range Interpretation [...] URINE: CLEAN CATCHIndication for culture: Dysuria/FrequencyBASIC METABOLIC [id number] 13:12:00 Test Item Value Reference Range Interpretation [...] 8.5-10.1 N UA RFLX MICR CULT IF [id number] 13:12:00 Test Item Value Reference Range Interpretation [...] URINE: CLEAN CATCHIndication for culture: Dysuria/FrequencyCBC W/AUTO [id number] 12:59:00 Test Item Value Reference Range Interpretation [...] DIFF/SCN CRITERIA MDIFF) - CT HEAD/BRAIN W/O [id number] 12:55:00 Name: LUBNA LEACH [facility] : 1965 Age/S: 54 / M [address] Unit #: [id number] Loc: [place] [address] Phys: Nito Golden MD Acct: [id number] Dis Date: Status: REG ER PHONE #: [phone] Exam Date: 08/08/2019 1230 FAX #: Reason: headache EXAMS: CPT: [id number] CT HEAD/BRAIN W/O CONT 23083 Site ID: [id number] CT head TECHNIQUE: CT [...] Armenta, RT(R)(CT) CTDI: DLP: Trnscb Date/Time: 08/08/2019 (3131) t.[email or web address] Orig Print D/T: S: 08/08/2019 (6632) PAGE 1 Signed ReportTROPONIN I RAPID 2019-07-01 00:13:00 Test Item Value Reference Range Interpretation Comments TROPONIN I RAPID 0.00 ng/mL 0.00-0.08 N - The use o f serial (test code = sampling and te sting TROPIRAP) protocol is a recommended pra ctice- An elevated tro ponin level alone is often not sufficient for diagnosis of my ocardial infarction. HEPATIC FUNCTION [id number] 00:11:00 Test Item Value Reference Range Interpretation [...] code = 27 Unit/L 26-192 N CK) [id number] 00:11:00 Test Item Value Reference Range Interpretation Comments LIPASE (test code = LIP) 230 Unit/L 114-286 N NT PRO-BRAIN NATRIURETIC [id number] 00:11:00 Test Item Value Reference Range Interpretation Comments NT PRO-BRAIN NATRIURETIC PEPTI 137 PG/ML 0-100 H (test code = PROBNP) CHEMISTRY 8 [id number] 00:08:00 Test Item Value Reference Range Interpretation [...] 56-130 N code = GFRBED) CHEMISTRY 8 [id number] 00:08:00 Test Item Value Reference Range Interpretation [...] code = GFRBED) - XR CHEST 1 [id number] 00:03:00 Name: LUBNA LEACH [facility] : 1965 Age/S: 54 / M [address] [address] Unit #: [id number] Loc: [place] [address] Phys: Jethro Rosenthal MD Acct: [id number] Dis Date: Status: REG ER PHONE #: [phone] Exam Date: 06/30/2019 0000 FAX #: Reason: SOB EXAMS: CPT: [id number] XR CHEST 1 V 82382 Fluoro Time: DAP (Gy m2): Air Kerma [...] PAGE 1 Signed Report Name: LUBNA LEACH [facility] [place] : 1965 Age/S: 54 / M [address] [address] [id number] Loc: [place] [address] Phys: Jethro Rosenthal MD Acct: [id number] Dis Date: Status:REG ER PHONE #: [phone] Exam Date: 06/30/2019 0000 FAX #: Reason: SOB EXAMS: CPT: [id number] XR CHEST 1 V 13900 Fluoro Time: DAP (Gy m2): Air Kerma (mGy): <Continued> Technologist: CHILO Melgoza,RVS Trnscb Date/Time: 07/01/2019 (0003) [email or web address] Orig Print D/T: S: 07/01/2019 (0007) PAGE 2 Signed ReportC W/O [id number] 23:55:00 Test Item Value Reference Range Interpretation [...] 7.0-9.6 H MPV) - XR CHEST 1 [id number] 11:34:00 Name: LUBNA LEACH [facility] : 1965 Age/S: 54 / M [address] [address] Unit #: [id number] Loc: [place] [address] Phys: Tejas Feliciano MD Acct: [id number] Dis Date: Status: REG ER PHONE #: [phone] Exam Date: 06/26/2019 1105 FAX #: Reason: sore throat, dyspnea EXAMS: CPT: [id number] XR CHEST 1 V 83297 Fluoro Time: DAP (Gy m2): Air Kerma [...] 1 Signed Report Name: LUBNA LEACH [facility] : 1965 Age/S: 54 / M [address] [address] Unit #: [id number] Loc: [place] [address] Phys: Tejas Feliciano MD Acct: [id number] Dis Date: Status: REG ER PHONE #: [phone] Exam Date: 06/26/2019 1105 FAX #: Reason: sore throat, dyspnea EXAMS: CPT: [id number] XR CHEST 1 V 58055 Fluoro Time: DAP (Gy m2): Air Kerma (mGy): <Continued> Technologist: Refugio Armenta RT(R)(CT) Trnscb Date/Time: 06/26/2019 (5014) [email or web address] Orig Print D/T: S: 06/26/2019 (3237) PAGE 2 Signed ReportCOMPREHENSIVE METABOLIC [id number] 11:27:00 Test Item Value Reference Range Interpretation [...] 50-136 H TOTAL (test code = ALKP) [id number] 11:27:00 Test Item Value Reference Range Interpretation Comments LIPASE (test code = LIP) 88 Unit/L 114-286 L CBC W/AUTO [id number] 11:09:00 Test Item Value Reference Range Interpretation [...] = NO DIFF/SCN CRITERIA MDIFF) ANTINUCLEAR ANTIBODIES [id number] 02:42:00 Test Item Value Reference Range Interpretation Comments SEAN DIRECT (test code Negative () = ANADIR) Neg ative <1:80 Borderline 1:8 0 Positive >1:80Performed At: [facility] [address] [place], [place] [id number] ivan Womack MD Ph:[phone] ACUTE HEPATITIS [id number] 02:42:00 Test Item Value Reference Range Interpretation Comments AB HEPATITIS A IGM NON REACTIVE NON REACT. Testing d one at (test code = INDEX [place] ONAL HAVMAB) [facility] [address] [place] [address] AB HEPATITIS B <3.1 mIU/mL Immunity>9.9 A Status of SURFACE (test code Immunity = HBSAB) Anti-H Bs Level --- I ncon sistent with Immunity 0.0 - 9.9Consistent w ith Immunity >9.9Performed A t: [facility] [address] [place], [place] [id number] Kyle L MD Ph:[phone] ST PERFORMED AT [facility] [address] [place], [place] [address] AG HEPATITIS B NON REACTIVE NonReactive Testing done at SURFACE (test code INDEX [place] [place] [facility] = HBSAG) [facility] [address] [place] [address] AB HEPATITIS B NON REACTIVE NON REACT. Testing done at CORE IGM (test INDEX CLEAR HOOKS RE GIONAL code = HBCMAB) [facility] [address] [place] [address] AB HEPATITIS C REACTIVE INDEX NON REACT. A Testing don e at (test code = CLEAR HOOKS [place] ONAL HCVAB) [facility] [address] [place] [address] AB [id number] 02:42:00 Test Item Value Reference Range Interpretation Comments AB <20.0 Units 0.0-20.0 ANTI-MITOCHONDRIAL Ne gative 0.0 - (test code = 20.0 MITOAB) Equi vocal 20.1 - 24.9 Positive >24.9Mitochondr ial (M2) Antibodies are found in 90-96% ofpatien ts with primary biliary cirrhosis.Perfo rmed At: [facility] [id number] ra Ev GOMEZ Ph:[phone] ANTINUCLEAR ANTIBODIES [id number] 16:45:00 Test Item Value Reference Range Interpretation Comments SEAN DIRECT (test code Negative () = ANADIR) Neg ative <1:80 Borderline 1:8 0 Positive >1:80Performed At: [facility] [address] [id number] ivan Womack MD Ph:[phone] ACUTE HEPATITIS [id number] 16:45:00 Test Item Value Reference Range Interpretation Comments AB HEPATITIS A IGM NON REACTIVE NON REACT. Testing d one at (test code = INDEX [place] ONAL HAVMAB) [facility] [address] [place] [address] AB HEPATITIS B <3.1 mIU/mL Immunity>9.9 A Status of SURFACE (test code Immunity = HBSAB) Anti-H Bs Level --- I ncon sistent with Immunity 0.0 - 9.9Consistent w ith Immunity >9.9Performed A t: [facility] [id number] Kyle L MD Ph:[phone] ST PERFORMED AT [facility] [place] [address] [place], [place] [address] AG HEPATITIS B NON REACTIVE NonReactive Testing done at SURFACE (test code INDEX [place] [place] [facility] = HBSAG) [facility] [address] [place] [address] 8930[address] AB HEPATITIS B NON REACTIVE NON REACT. Testing done at CORE IGM (test INDEX CLEAR HOOKS RE GIONAL code = HBCMAB) [facility] [address] [place] [address] AB HEPATITIS C REACTIVE INDEX NON REACT. A Testing don e at (test code = CLEAR [place] ONAL HCVAB) [facility] [address] [place] [address] AB [id number] 16:45:00 Test Item Value Reference Range Interpretation Comments AB ANTI-MITOCHONDRIAL (test code = Units 0.0-20.0 MITOAB) [id number] 21:51:00 Test Item Value Reference Range Interpretation Comments GLUBED (test code = GLUBED) 168 mg/dL 70-110 H [id number] 15:58:00 Test Item Value Reference Range Interpretation Comments GLUBED (test code = GLUBED) 168 mg/dL 70-110 H [id number] 07:22:00 Test Item Value Reference Range Interpretation Comments GLUBED (test code = GLUBED) 113 mg/dL 70-110 H CBC W/AUTO [id number] 06:46:00 Test Item Value Reference Range Interpretation [...] BA#) 0.1 K/mm3 0.0-0.2 N COMPREHENSIVE METABOLIC [id number] 06:12:00 Test Item Value Reference Range Interpretation [...] 158 Units/L 50.0-136.0 H code = ALKP) [id number] 06:12:00 Test Item Value Reference Range Interpretation Comments MAGNESIUM (test code = MAG) 2.0 mg/dl 1.8-2.4 N [id number] 23:47:00 Test Item Value Reference Range Interpretation Comments GLUBED (test code = GLUBED) 179 mg/dL 70-110 H ANTINUCLEAR ANTIBODIES [id number] 16:47:00 Test Item Value Reference Range Interpretation Comments SEAN DIRECT (test code = ANADIR) NEGATIVE ACUTE HEPATITIS [id number] 16:47:00 Test Item Value Reference Range Interpretation Comments AB HEPATITIS A IGM NON REACTIVE NON REACT. Testing d one at (test code = INDEX [place] ONAL HAVMAB) [facility] [address] [place] [address]. [facility] [place] [address] AB HEPATITIS B mIU/mL Immune >9.9 SURFACE (test code = HBSAB) AG HEPATITIS B NON REACTIVE NonReactive Testing done at SURFACE (test code INDEX [place] [place] = HBSAG) [facility] [address] [place] [address]. [facility] [place] [address] AB HEPATITIS B NON REACTIVE NON REACT. Testing done at CORE IGM (test INDEX CLEAR HOOKS RE GIONAL code = HBCMAB) [facility] [address] [place] [address]. [facility] [place] [address] AB HEPATITIS C REACTIVE INDEX NON REACT. A Testing don e at (test code = CLEAR [place]OO[place] ONAL HCVAB) [facility] [address] [place] [address]. [facility] [place] [address] AB [id number] 16:47:00 Test Item Value Reference Range Interpretation Comments AB ANTI-MITOCHONDRIAL (test code = Units 0.0-20.0 MITOAB) AB HEPATITIS A [id number] 16:41:00 Test Item Value Reference Range Interpretation Comments AB HEPATITIS A IGM (test NON REACTIVE INDEX NON REACT. code = HAVMAB) AG HEPATITIS B [id number] 16:41:00 Test Item Value Reference Range Interpretation Comments AG HEPATITIS B SURFACE NON REACTIVE INDEX NonReactive (test code = HBSAG) AB HEPATITIS B CORE [id number] 16:41:00 Test Item Value Reference Range Interpretation Comments AB HEPATITIS B CORE IGM NON REACTIVE INDEX NON REACT. (test code = HBCMAB) AB HEPATITIS [id number] 16:41:00 Test Item Value Reference Range Interpretation Comments AB HEPATITIS C (test code = REACTIVE INDEX NON REACT. A HCVAB) [id number] 16:40:00 Test Item Value Reference Range Interpretation Comments GLUBED (test code = GLUBED) 167 mg/dL 70-110 H [id number] 13:52:00 Test Item Value Reference Range Interpretation Comments GLUBED (test code = GLUBED) 139 mg/dL 70-110 H VITAMIN [id number] 13:03:00 Test Item Value Reference Range Interpretation Comments VITAMIN B12 (test code = VITB12) 697 pg/mL 193-986 N THYROID STIMULATING [id number] 13:03:00 Test Item Value Reference Range Interpretation Comments THYROID STIMULATING 1.83 IU/ML 0.47-5.01 N Result i s in HORMONE (test code = Interna tional TSH) Units/millilite r [id number] 12:40:00 Test Item Value Reference Range Interpretation Comments HGBA1C% (test code = HGBA1C%) 6.4 %A1C 4.8-6.0 H ESTIMATED AVERAGE GLUCOSE (test 137 MG/DL code = EAG) - US ABDOMEN [id number] 12:20:00 FAX: Beto Urias [phone] [place]: St: [facility] FAX: Leslie Larsen [phone] Name: LUBNA LEACH [facility] : 1965 Age/S: 54/M [address] [facility] Unit #: [id number] Loc: [place], [place] Phys: Gael Garcia [address] Acct: [id number] Dis Date: Status: ADM IN PHONE #: [phone] Exam Date: 05/16/2019 1046 FAX #: [phone] Reason: Elevated LFT Report Has Been Amended EXAMS: CPT CODE: [id number] US ABDOMEN LTD 34065 Addendum - 05/16/2019 SIGNED 05/16/2019 ADDENDUM: [id number] US/USABDLTD Addendum: A typographical air occurred described in the common bile duct as ABNORMAL. The common bile duct is actually normal in appearance, measuring 5 mm in diameter. No stones are appreciated. at 1220 Reported and signed by: Sahra Smith M.D. Report ULTRASOUND: - US ABDOMEN [...] 1 Signed Report (CONTINUED) FAX: Beto Urias [phone] [place]: St: [facility] FAX: Gael Larsen [phone] Name: LUBNA LEACH [facility] : 1965 Age/S: 54/M [address] [employer] Unit #: [id number] Loc: [place], [place] Phys: Gael Garcia [address] Acct: [id number] Dis Date: Status: ADM IN PHONE #: [phone] Exam Date: 05/16/2019 1046 FAX #: [phone] Reason: Elevated LFT Report Has Been Amended EXAMS: CPT CODE: [id number] US ABDOMEN LTD 12590 <Continued> Impression: No acute abnormality in the right upper quadrant. Liver size slightly enlarged with fatty changes. CT shows slightly nonsmooth margins suggesting the possibility of cirrhosis, as well. No ascites recognized, currently. Location: [facility] Electronically Signed by Stan Smith on 05/16/2019 at 1108 Reported and signed by: Sahra Smith M.D. CC: Beto Boland MD; Gael BARRAZA Technologist: CARLOS ALBERTO HU [facility] Date/Time/By: 05/16/2019 (1100) : By: [facility] PAGE 2 Signed Report FAX: Beto Urias [phone] [place]: St: [facility] FAX: Gael Larsen [phone] Name: LUBNA LEACH [facility] : 1965 Age/S: 54/M [address] Unit #: [id number] Loc: [place], [place] Phys: Gael Garcia [address] Acct: [id number] Dis Date: Status: ADM IN PHONE #: [phone] Exam Date: 05/16/2019 1046 FAX #: [phone] Reason: Elevated LFT Report Has Been Amended EXAMS: CPT CODE: [id number] US ABDOMEN LTD 23667 <Continued> Orig Print D/T: S: 05/16/2019 (1112) PAGE 3 Signed Report- US ABDOMEN [id number] 11:08:00 FAX: Beto Urias [phone] [place]: St: ADM FAX: Leslie Larsen [phone] Name: LUBNA LEACH [facility] : 1965 Age/S: 54/M [address] [facility] Unit #: [id number] Loc: [place], [place] Phys: Gael Garcia [address] Acct: [id number] Dis Date: Status: ADM IN PHONE #: [phone] Exam Date: 05/16/2019 1046 FAX #: [phone] Reason: Elevated LFT EXAMS: CPT CODE: [id number] US ABDOMEN LTD [address]98[address] ULTRASOUND:- US ABDOMEN LTD History: Elevated liver [...] 19 at 1108 Reported and signed by: Sahra Smith M.D. CC: Beto Boland MD; Gael BARRAZA Technologist: CARLOS ALBERTO HU Trnscrd Date/Time/By: 05/16/2019 (1994) : By: [facility] PAGE 1 Signed Report FAX: Beto Urias [phone] [place]: St: ADM FAX: Gael Larsen [phone] Name: LUBNA LEACH [facility] : 1965 Age/S: 54/M [address] [facility] Unit #: [id number] Loc: [place], [place] Phys: Gael Garcia [address] Acct: [id number] Dis Date: Status: ADM IN PHONE #: [phone] Exam Date: 05/16/2019 1046 FAX #: [phone] Reason: Elevated LFT EXAMS: CPT CODE: [id number] US ABDOMEN LTD 32741 <Continued> Orig Print D/T: S: 05/16/2019 (7689) PAGE 2 Signed [id number] 07:18:00 Test Item Value Reference Range Interpretation Comments AMMONIA (test code = AMM) 9.5 MCMOL/L 11.0-32.0 L No sample received in the lab. Please collect if deemednecessary.Thank you!Lab DRUGS OF ABUSE SCREEN [id number] 06:29:00 Test Item Value Reference Interpretation Comments [...] [place]) concentrati on: 300 ng/mL CBC W/MANUAL [id number] 05:08:00 Test Item Value Reference Range Interpretation [...] MORPHOLOGY (test code NORMAL = PLTMORPH) PROTHROMBIN [id number] 01:10:00 Test Item Value Reference Range Interpretation Comments PROTHROMBIN TIME 12.6 SECONDS 9.9-12.8 N PATIENT (test code = PTP) INTERNATIONAL NORMAL 1.1 0.89-1.14 N THE INR IS TO BE USED RATIO (test code = ONLY FOR MONITORING INR) ORAL ANTICOAGULANTTH ERAPY. THE FOLLOWING A RE SUGGESTED RANGE [facility]:ANGELA CATION [...] 3 .5 Specimen comments: Clean CatchTHROMBOPLASTIN TIME [id number] 01:10:00 Test Item Value Reference Range Interpretation Comments THROMBOPLASTIN TIME 33.50 SECONDS 25.86-36.07 N [facility] PARTIAL (test code = Therape utic Range - PTT) APTT of 55.8-85 .4 secondscorrelat es with plasma heparin concentration o f 0.2-0.4 u/mL Ne w range effective - Specimen comments: Clean CatchBASIC METABOLIC [id number] 01:09:00 Test Item Value Reference Range Interpretation [...] 8.0 mg/dl 8.0-10.5 N Specimen comments: Clean Celator PharmaceuticalsHEPATIC FUNCTION PANEL [id number] 01:09:00 Test Item Value Reference Range Interpretation [...] H code = ALKP) Specimen comments: Clean [id number] 01:09:00 Test Item Value Reference Range Interpretation Comments LIPASE (test code = 560 Units/L 65.0-230.0 H 2+ LIPEM IC SAMPLE. LIP) Specimen comments: Clean CatchB-TYPE NATRIURETIC [id number] 01:09:00 Test Item Value Reference Range Interpretation Comments B-TYPE NATRIURETIC PEPTIDE (test 33 PG/ML 5-100 N code = BNP) Specimen comments: Clean CatchBASIC METABOLIC [id number] 00:59:00 Test Item Value Reference Range Interpretation [...] N Specimen comments: Clean CatchHEPATIC FUNCTION PANEL [id number] 00:59:00 Test Item Value Reference Range Interpretation [...] H code = ALKP) Specimen comments: Clean [id number] 00:59:00 Test Item Value Reference Range Interpretation Comments LIPASE (test code = 560 Units/L 65.0-230.0 H 2+ LIPEM IC SAMPLE. LIP) Specimen comments: Clean CatchB-TYPE NATRIURETIC [id number] 00:59:00 Test Item Value Reference Range Interpretation Comments B-TYPE NATRIURETIC PEPTIDE (test code PG/ML 5-100 = BNP) Specimen comments: Clean CatchBASIC METABOLIC [id number] 00:54:00 Test Item Value Reference Range Interpretation [...] = CA) mg/dl 8.0-10.5 Specimen comments: Clean Celator PharmaceuticalsHEPATIC FUNCTION PANEL [id number] 00:54:00 Test Item Value Reference Range Interpretation [...] 50.0-136.0 code = ALKP) Specimen comments: Clean [id number] 00:54:00 Test Item Value Reference Range Interpretation Comments LIPASE (test code = LIP) Units/L 65.0-230.0 Specimen comments: Clean CatchB-TYPE NATRIURETIC [id number] 00:54:00 Test Item Value Reference Range Interpretation Comments B-TYPE NATRIURETIC PEPTIDE (test code PG/ML 5-100 = BNP) Specimen comments: Clean CatchURINALYSIS [id number] 00:52:00 Test Item Value Reference Range Interpretation [...] NONE BACU) Specimen comments: Clean CatchCBC W/MANUAL [id number] 00:46:00 Test Item Value Reference Range Interpretation [...] code = LYMPH) % 20-40 CBC W/MANUAL [id number] 00:46:00 Test Item Value Reference Range Interpretation [...] (test code = LYMPH) % 20-40 URINALYSIS [id number] 00:45:00 Test Item Value Reference Range Interpretation [...] comments: Clean Catch- CT ABD PELVIS W/O [id number] 23:43:00 FAX: Nathan Prince MD [place]: St: REG Name: LUBNA LEACH [facility] : 1965 Age/S: 54/M [address] [facility] Unit: [id number] Loc: [address] Phys: [place] [address] Acct: [id number] Dis Date: Status: REG ER PHONE #: [phone] Exam Date: 05/15/2019 2316 FAX #: [phone] Reason: ruq pain EXAMS: CPT CODE: [id number] CT ABD PELVIS W/O CONT 35145 CLINICAL HISTORY: Right upper quadrant abdominal pain,shortness [...] Signed Report (CONTINUED) FAX: Nathan Prince MD [place]: St: REG Name: LUBNA LEACH [facility] : 1965 Age/S: 54/M [address] [facility] Unit: [id number] Loc: [address] Phys: [place] [address] Acct: [id number] Dis Date: Status: REG ER PHONE #: [phone] Exam Date: 05/15/2019 2316 FAX #: [phone] Reason: ruq pain EXAMS: CPT CODE: [id number] CT ABD PELVIS W/O CONT 47670 <Continued> This exam was performed according to ourdepartmental dose-optimization program, which includes automated exposure control, adjustment of the mA and/or kV according to patient size and/or use of iterative reconstruction technique at 2343 Reported and signed by: Lennox Purvis M.D. CC: Nathan Prince MD Technologist: STANTON Good Dt/Tm: 05/15/2019 (2620) [email or web address] Orig Print D/T: S: 05/15/2019 (4098 PAGE 2 Signed Report- XR CHEST 2 [id number] 23:29:00 FAX: Nathan Prince MD [place]: St: REG Name: LUBNA LEACH [facility] : 1965 Age/S: 54/M [address] [facility] Unit#: [id number] Loc: [address] Phys: [place] [address] Acct: [id number] Dis Date: Status: REG ER PHONE #: [phone] Exam Date: 05/15/2019 2320 FAX #: [phone] Reason: sob EXAMS: CPT CODE: [id number] XR CHEST 2 V 72066 EXAM: - XR CHEST 2 V HISTORY: Shortness of breath. COMPARISON: April 17, 2018. FINDINGS: PA and lateral view of the chest is provided. Heart size and vascularity are within normal limits. There is no focal consolidation. No effusion, pneumothorax, or acute osseous abnormality. IMPRESSION: No consolidation or pleural effusion. at 3602 Reported and signed by: Choco Wells M.D. CC: Nathan Prince MD Technologist: TOO JIMENEZ Trnscrd Date/Time/By: 05/15/2019 (2082) : By: [email or web address] PAGE 1 Signed Report FAX: Nathan Prince MD [place]: St: REG -- Name: LUBNA LEACH [facility] : 1965 Age/S: 54/M [address] [facility] Unit #: [id number] Loc: [address] [place]: [place] [address] Acct: [id number] Dis Date: Status: REG ER PHONE #: [phone] Exam Date: 05/15/2019 2320 FAX #: [phone] Reason: sob EXAMS: CPT CODE: [id number] XR CHEST 2 V 28071 <Continued> Orig Print D/T: S: 05/15/2019 (5142) PAGE 2 Signed Report
[2022-03-11] MEDS ORDERED: HYDROCODONE/APAP 10/325 TAB ONE (11:37)
--- NOTE | 2022-03-11 12:45 | RAD REPORT ---
EXAM DESCRIPTION: US - Extrem Venous W Compress Jsoe Luis - 03/11/2022 12:31 pm CLINICAL HISTORY: Pain COMPARISON: No comparisons TECHNIQUE: Real-time sonographic evaluation of the lower extremity deep venous systems was performed using color Doppler, grayscale, and compression. FINDINGS: Bilateral lower extremities. Normal compressibility, flow augmentation, phasic flow and spontaneous flow is identified in both the left and right lower extremity deep venous systems. No intraluminal filling defects seen. IMPRESSION: No DVT in either lower extremity.
--- NOTE | 2022-03-11 13:03 | ER ---
Nurse's Notes [facility] Name: Huber Augustine Age: 57 yrs Sex: Male : 1965 Arrival Date: 03/11/2022 Time: 10:01 Bed 4 Private MD: Diagnosis: Bilateral lower extremity neuropathy Presentation: 03/11 10:13 Chief complaint: Patient states: Bilateral leg pain and swelling that has been ongoing ss for years. Pt reports a HX of neuropathy, and states that he can't stand it any longer because he is unable to sleep, and having trouble walking. Coronavirus screen: Client denies travel out of the [place] in the last 14 days. Ebola Screen: Patient denies exposure to infectious person. Patient denies travel to an Ebola-affected area in the 21 days before illness onset. Initial Sepsis Screen: Does the patient meet any 2 criteria? No. Patient's initial sepsis screen is negative. Does the patient have a suspected source of infection? No. Patient's initial sepsis screen is negative. Risk Assessment: Do you want to hurt yourself or someone else? Patient reports no desire to harm self or others. Onset of symptoms is unknown. 10:13 Method Of Arrival: Ambulatory ss 10:13 Acuity: ROSALEE 3 ss Triage Assessment: 14:04 General: Appears in no apparent distress. Behavior is calm, cooperative. GI: Reports small Pain is 6 out of 10 on a pain scale. Historical: - Allergies: 10:15 No Known Allergies; ss - PMHx: 10:15 diabetes mellitus; neuropathy; ss - Immunization history:: Client reports having NOT received the Covid vaccine. - Social history:: Smoking status: Patient reports the use of cigarette tobacco products, smokes one-half pack cigarettes per day. Screenin:04 Abuse screen: Denies threats or abuse. Denies injuries from another. Nutritional small screening: No deficits noted. Tuberculosis screening: No symptoms or risk factors identified. Fall Risk None identified. Assessment: 14:04 Pain: Complains of pain in right leg and left leg. GI: Abdomen is flat. small Vital Signs: 10:13 BP 125 / 85; Pulse 73; Resp 18; Temp 97.7(TE); Pulse Ox 99% on R/A; Weight 81.65 kg; ss Height 6 ft. 0 in. (182.88 cm); Pain 8/10; 10:13 Body Mass Index 24.41 (81.65 kg, 182.88 cm) ED Course: 10:01 Patient arrived in ED. mr 10:15 Triage completed. ss 10:15 Arm band placed on right wrist. ss 10:42 Devon Stanton NP is PHCP. pm1 10:42 Wisam Warren MD is Attending Physician. pm1 11:24 Ivory Cline, RN is Primary Nurse. small 12:33 Extrem Venous W Compression Jose Luis US In Process Unspecified. EDMS 14:04 Patient has correct armband on for positive identification. Bed in low position. small 14:04 No provider procedures requiring assistance completed. small 14:05 Patient did not have IV access during this emergency room visit. small Administered Medications: 11:36 Drug: [place] (HYDROcodone-acetaminophen) 10 mg-325 mg 1 tabs Route: PO; small 11:37 Follow up: Response: No adverse reaction small Outcome: 13:02 Discharge ordered by . pm1 14:04 Discharged to home ambulatory. small 14:04 Condition: good 14:04 Discharge instructions given to patient. 14:05 Patient left the ED. small Signatures: Dispatcher [employer] [facility] Eneida Granda Petra Hi RN RN Devon Stanton, JAK [employer] QUALITY RN pm1 Ivory Cline RN RN small
--- NOTE | 2022-03-11 13:03 | EDPHYS ---
Physician Documentation [facility] Name: Huber Augustine Age: 57 yrs Sex: Male : 1965 Arrival Date: 03/11/2022 Time: 10:01 Bed 4 Private MD: Wisam Mckeon HPI: 03/11 13:02 This 57 yrs old Male presents to ER via Ambulatory with complaints of Leg Pain. pm1 13:02 The patient presents with pain, that is chronic. The complaints affect the right leg pm1 and left leg. Context: resulted from diabetes and neuropathy. Patient once took Lyrica and gabapentin for his pain. However patient reports he has not taken any of those medications or his diabetic neuropathy to lower extremities since the beginning of covid, the patient can fully bear weight, the patient is able to ambulate. Onset: The symptoms/episode began/occurred Many years ago. Modifying factors: The symptoms are alleviated by nothing. the symptoms are aggravated by nothing. Associated signs and symptoms: Pertinent positives: swelling, Pertinent negatives calf tenderness, fever. Treatment prior to arrival includes: no previous treatment. The patient has experienced similar episodes in the past, chronically. The patient has not recently seen a physician. Historical: - Allergies: 10:15 No Known Allergies; ss - PMHx: 10:15 diabetes mellitus; neuropathy; ss - Immunization history:: Client reports having NOT received the Covid vaccine. - Social history:: Smoking status: Patient reports the use of cigarette tobacco products, smokes one-half pack cigarettes per day. ROS: 13:02 Constitutional: Negative for fever, chills, and weight loss, Cardiovascular: Negative pm1 for chest pain, palpitations, and edema, Respiratory: Negative for shortness of breath, cough, wheezing, and pleuritic chest pain, Abdomen/GI: Negative for abdominal pain, nausea, vomiting, diarrhea, and constipation, Back: Negative for injury and pain, MS/Extremity: Negative for injury and deformity, Skin: Negative for injury, rash, and discoloration. 13:02 All other systems are negative. Exam: 13:02 Constitutional: This is a well developed, well nourished patient who is awake, alert, pm1 and in no acute distress. Head/Face: Normocephalic, atraumatic. 13:02 Skin: Warm, dry with normal turgor. Normal color with no rashes, no lesions, and no evidence of cellulitis. MS/ Extremity: Pulses equal, no cyanosis. Neurovascular intact. Full, normal range of motion. 13:02 Cardiovascular: Exam negative for acute changes, Rate: normal, Rhythm: regular, Pulses: no pulse deficits are appreciated. 13:02 Respiratory: Exam negative for acute changes, respiratory distress, shortness of breath. 13:02 Neuro: Exam negative for acute changes, Orientation: is normal, Mentation: is normal, Motor: is normal, moves all fours. Vital Signs: 10:13 BP 125 / 85; Pulse 73; Resp 18; Temp 97.7(TE); Pulse Ox 99% on R/A; Weight 81.65 kg; ss Height 6 ft. 0 in. (182.88 cm); Pain 8/10; 10:13 Body Mass Index 24.41 (81.65 kg, 182.88 cm) ss MDM: 11:08 Patient medically screened. pm1 12:59 Data reviewed: vital signs. Data interpreted: Pulse oximetry: on room air is 99 %. pm1 Interpretation: normal. Counseling: I had a detailed discussion with the patient and/or guardian regarding: the historical points, exam findings, and any diagnostic results supporting the discharge/admit diagnosis, the need for outpatient follow up, to return to the emergency department if symptoms worsen or persist or if there are any questions or concerns that arise at home. 03/11 11:28 Order name: Extrem Venous W Compression Jose Luis US; Complete Time: 12:59 pm1 Administered Medications: 11:36 Drug: [place] (HYDROcodone-acetaminophen) 10 mg-325 mg 1 tabs Route: PO; small 11:37 Follow up: Response: No adverse reaction small Disposition Summary: 03/11/22 13:02 Discharge Ordered Location: Home pm1 Problem: new pm1 Symptoms: have improved pm1 Condition: Stable pm1 Diagnosis - Bilateral lower extremity neuropathy pm1 Followup: pm1 - With: Emergency Department - When: As needed - Reason: Worsening of condition Followup: pm1 - With: Private Physician - When: 2 - 3 days - Reason: Recheck today's complaints, Continuance of care, Re-evaluation by your physician Discharge Instructions: - Discharge Summary Sheet pm1 - Peripheral Neuropathy pm1 Forms: - Medication Reconciliation Form pm1 - Thank You Letter pm1 - Antibiotic Education pm1 - Prescription Opioid Use pm1 - Work release form eb Signatures: Dispatcher [employer] EDMS Petra Hi, RN RN ss Devon Stanton, HUMAN [employer] TEAM MEMBER H[employer] TEAM MEMBER pm1 Au-Ivory Young RN RN small
[2022-03-11 15:24] VITALS: BP 125/85; TEMP 97.7; O2SAT 99
== END 2022-03-11 14:05 | disposition home or self-care (01) ==
LOC: ER 09:35
DX: E11.40 Type 2 diabetes mellitus with diabetic neuropathy, unspecified (principal); F17.210 Nicotine dependence, cigarettes, uncomplicated
CPT/HCPCS: 93970; 99283

== ENCOUNTER 2022-03-17 08:37 | Emergency (ER) | payer OTHER ==
--- OUTSIDE RECORDS SUMMARY | 2022-03-17 08:42 | XMS REPORT | Continuity of Care Document ---
:1965 Author Organization [facility] t Address [address] [place] [address] Care Team Providers Name Role Phone SAHRA CORDERO Attending Clinician Unavailable Physician, Primary or Family Admitting Clinician Unavailabl e Payers Payer Name Policy Type Policy Number Effective Date Expiration Date S ource Problems This patient has no known problems. Allergies, Adverse Reactions, Alerts Allergy Allergy Status Severity Reaction(s) Onset Inactive Treating Comm ents Source Name Type Date Date Clinician morphine DA Active [place] 2018-0 [facility] 8-27 [place] 00:00: d 00 [facility] morphine DA Active [place] REDNESS/ITCH 2018-0 HC A ING TO AREA 8-27 Maryuri an OF INJECTION 00:00: d 00 [facility] No Known DA Active U 2017-0 [facility] Allergie 6-13 [place] s 00:00: d 00 [facility] Medications This patient has no known medications. Procedures This patient has no known procedures. Encounters Start End Encounter Admission Attending Care Care Encounter Source Date/Time Date/Time Type Type Clinicians Facility Department ID 2020-09-07 Inpatient HCAPM NELIDA [id number] [facility] 20:04:00 [facility] [place] 2020-01-10 Inpatient HCAPM NELIDA [id number] [facility] 11:42:00 [facility] [place] 2019-11-22 Inpatient HCAPM NEILDA [id number] [facility] 08:41:00 [id number] [facility] [place] 2019-05-12 Inpatient E MANUELA MED 7500 MHB L 23:36:00 2021-05-19 2021-05-19 Emergency E MANUELA CORDERO MARK 7503 MANUELA 12:33:00 17:33:00 EMI 2019-11-11 2019-11-11 Emergency E MHSE MHSE 7502 18:37:00 18:37:00 [facility] 2019-10-19 2019-10-19 Emergency E MHSE MHSE 7501 10:27:00 10:27:00 [facility] Results Test Description Test Time Test [...] = MDIFF) NO DIFF/SCN CRITERIA CBC W/AUTO [id number] 20:54:00 Test Item Value Reference Range Interpretation [...] code NO DIFF/SCN CRITERIA = MDIFF) RBC [id number] 20:54:00 Test Item Value Reference Range Interpretation Comments PLATELET MORPHOLOGY (test code = NORMAL PLTMORPH) CBC W/AUTO [id number] 20:54:00 Test Item Value Reference Range Interpretation [...] NO DIFF/SCN CRITERIA = MDIFF) BASIC METABOLIC [id number] 20:47:00 Test Item Value Reference Range Interpretation [...] CA) 8.5 MG/DL 8.5-10.1 N HEPATIC FUNCTION [id number] 20:47:00 Test Item Value Reference Range Interpretation [...] 189 Unit/L 50-136 H code = ALKP) [id number] 20:47:00 Test Item Value Reference Range Interpretation Comments LIPASE (test code = LIP) 219 Unit/L 114-286 N CBC W/AUTO [id number] 20:34:00 Test Item Value Reference Range Interpretation [...] code = DIFF/SCN CRITERIA MDIFF) BASIC METABOLIC [id number] 12:34:00 Test Item Value Reference Range Interpretation [...] CA) 9.5 MG/DL 8.5-10.1 N HEPATIC FUNCTION [id number] 12:34:00 Test Item Value Reference Range Interpretation [...] 291 Unit/L 50-136 H code = ALKP) [id number] 12:34:00 Test Item Value Reference Range Interpretation Comments LIPASE (test code = LIP) 207 Unit/L 114-286 N BASIC METABOLIC [id number] 12:29:00 Test Item Value Reference Range Interpretation [...] CA) 9.5 MG/DL 8.5-10.1 N HEPATIC FUNCTION [id number] 12:29:00 Test Item Value Reference Range Interpretation [...] TOTAL (test Unit/L 50-136 code = ALKP) [id number] 12:29:00 Test Item Value Reference Range Interpretation Comments LIPASE (test code = LIP) 207 Unit/L 114-286 N CBC W/AUTO [id number] 12:17:00 Test Item Value Reference Range Interpretation [...] DIFF/SCN CRITERIA MDIFF) - CT ABD PELVIS [id number] 11:10:00 Name: LUBNA LEACH [facility] : 1965 Age/S: 54 / M [address] Unit #: [id number] Loc: [place] [address] Phys: Nito Golden MD Acct: [id number] Dis Date: Status: REG ER PHONE #: [phone] Exam Date: 11/22/2019 1057 FAX #: Reason: rlq pain EXAMS: CPT: [id number] CT ABD PELVIS W/CONT 53648 LOCATION: T18 EXAM: CT ABDOMEN AND PELVIS [...] 11/22/2019 (1113) PAGE 1 Signed ReportBASIC METABOLIC [id number] 10:40:00 Test Item Value Reference Range Interpretation [...] CA) 9.0 MG/DL 8.5-10.1 N HEPATIC FUNCTION [id number] 10:40:00 Test Item Value Reference Range Interpretation [...] 112 Unit/L 50-136 N code = ALKP) [id number] 10:40:00 Test Item Value Reference Range Interpretation Comments LIPASE (test code = LIP) 106 Unit/L 114-286 L UA RFLX MICR CULT IF [id number] 10:12:00 Test Item Value Reference Range Interpretation [...] URINE: CLEAN CATCHIndication for culture: Dysuria/FrequencyCBC W/AUTO [id number] 09:46:00 Test Item Value Reference Range Interpretation [...] CRITERIA MDIFF) UA RFLX MICR CULT IF [id number] 09:45:00 Test Item Value Reference Range Interpretation [...] URINE: CLEAN CATCHIndication for culture: Dysuria/FrequencyCBC W/AUTO [id number] 23:05:00 Test Item Value Reference Range Interpretation [...] AUTO DIFFERENTIAL. UA RFLX MICR CULT IF [id number] 22:39:00 Test Item Value Reference Range Interpretation [...] CATCHIndication for culture: Dysuria/Frequency- CT ABD PELVIS [id number] 22:30:00 Name: LUBNA LEACH [facility] : 1965 Age/S: 54 / M [address] Unit #: [id number] Loc: [place] [address] Phys: Lino Ordaz MD Acct: [id number] Dis Date: Status: REG ER PHONE #: [phone] Exam Date: 10/14/20192219 FAX #: Reason: abdominal pain EXAMS: CPT: [id number] CT ABD PELVIS W/CONT 75038 EXAM: - CTABD PELVIS W/CONT HISTORY: Abdominal [...] 1 Signed Report (CONTINUED) Name: LUBNA LEACH [facility] Binu : 1965 Age/S: 54 / M [address] [facility] Unit #: [id number] Loc: [place] [address] Phys: Lino Ordaz MD Acct: [id number] Dis Date: Status: REG ER PHONE #: [phone] Exam Date: 10/14/20192219 FAX #: Reason: abdominal pain EXAMS: CPT: [id number] CT ABD PELVIS W/CONT 93524 <Continued> at 2230 Reported and signed by: Choco Wells M.D. CC: Lino Ordaz MD; Nuha BARRAZA Technologist:Leeroy Maldonado, RT(R)(CT)(MRI) CTDI: DLP: Trnscb Date/Time: 10/14/2019 (2230) [email or web address] Orig Print D/T: S: 10/14/2019 (3048) PAGE 2 Signed Report UA RFLX MICR CULT IF [id number] 22:21:00 Test Item Value Reference Range Interpretation [...] CLEAN CATCHIndication for culture: Dysuria/Frequency COMPREHENSIVE METABOLIC [id number] 21:35:00 Test Item Value Reference Range Interpretation [...] code = ALKP) - XR CHEST 1 [id number] 21:30:00 Name: LUBNA LEACH [facility] : 1965 Age/S: 54 / M [address] Unit #: [id number] Loc: [place] [address] Phys: Lino Ordaz MD Acct: [id number] Dis Date: Status: REG ER PHONE #: [phone] Exam Date: 10/14/20192112 FAX #: Reason: liver failure EXAMS: CPT: [id number] XR CHEST 1 V 03353 Fluoro Time: DAP (Gy m2): Air Kerma [...] PAGE 1 Signed Report Name: LUBNA LEACH [facility] : 1965 Age/S: 54 / M [address] Unit #: [id number] Loc: [place] [address] Phys: Lino Ordaz MD Acct: [id number] Dis Date: Status: REG ER PHONE #: [phone] Date: 10/14/20192112 FAX #: Reason: liver failure EXAMS: CPT: [id number] XR CHEST 1 V 31639 Fluoro Time: DAP (Gy m2): Air Kerma (mGy): <Continued> Technologist: Farooq Lang, RT(R)(CT) Trnscb Date/Time: 10/14/2019 (2129) [email or web address] Orig Print D/T: S: 10/14/2019 (2133) PAGE 2 Signed ReportCBC W/AUTO [id number] 21:25:00 Test Item Value Reference Range Interpretation [...] code = DIFF/SCN CRITERIA MDIFF) COMPREHENSIVE METABOLIC [id number] 21:22:00 Test Item Value Reference Range Interpretation [...] Unit/L 50-136 code = ALKP) CBC W/AUTO [id number] 13:44:00 Test Item Value Reference Range Interpretation [...] AUTO DIFFERENTIAL. UA RFLX MICR CULT IF [id number] 13:13:00 Test Item Value Reference Range Interpretation [...] URINE: CLEAN CATCHIndication for culture: Dysuria/FrequencyBASIC METABOLIC [id number] 13:12:00 Test Item Value Reference Range Interpretation [...] 8.5-10.1 N UA RFLX MICR CULT IF [id number] 13:12:00 Test Item Value Reference Range Interpretation [...] URINE: CLEAN CATCHIndication for culture: Dysuria/FrequencyCBC W/AUTO [id number] 12:59:00 Test Item Value Reference Range Interpretation [...] DIFF/SCN CRITERIA MDIFF) - CT HEAD/BRAIN W/O [id number] 12:55:00 Name: LUBNA LEACH [facility] : 1965 Age/S: 54 / M [address] Unit #: [id number] Loc: [place] [address] Phys: Nito Golden MD Acct: [id number] Dis Date: Status: REG ER PHONE #: [phone] Exam Date: 08/08/2019 1230 FAX #: Reason: headache EXAMS: CPT: [id number] CT HEAD/BRAIN W/O CONT 78220 Site ID: [id number] CT head TECHNIQUE: CT [...] Armenta, RT(R)(CT) CTDI: DLP: Trnscb Date/Time: 08/08/2019 (0475) t.[email or web address] Orig Print D/T: S: 08/08/2019 (3485) PAGE 1 Signed ReportTROPONIN I RAPID 2019-07-01 00:13:00 Test Item Value Reference Range Interpretation Comments TROPONIN I RAPID 0.00 ng/mL 0.00-0.08 N - The use o f serial (test code = sampling and te sting TROPIRAP) protocol is a recommended pra ctice- An elevated tro ponin level alone is often not sufficient for diagnosis of my ocardial infarction. HEPATIC FUNCTION [id number] 00:11:00 Test Item Value Reference Range Interpretation [...] code = 27 Unit/L 26-192 N CK) [id number] 00:11:00 Test Item Value Reference Range Interpretation Comments LIPASE (test code = LIP) 230 Unit/L 114-286 N NT PRO-BRAIN NATRIURETIC [id number] 00:11:00 Test Item Value Reference Range Interpretation Comments NT PRO-BRAIN NATRIURETIC PEPTI 137 PG/ML 0-100 H (test code = PROBNP) CHEMISTRY 8 [id number] 00:08:00 Test Item Value Reference Range Interpretation [...] 56-130 N code = GFRBED) CHEMISTRY 8 [id number] 00:08:00 Test Item Value Reference Range Interpretation [...] code = GFRBED) - XR CHEST 1 [id number] 00:03:00 Name: LUBNA LEACH [facility] : 1965 Age/S: 54 / M [address] Unit #: [id number] Loc: [place] [address] Phys: Jethro Rosenthal MD Acct: [id number] Dis Date: Status: REG ER PHONE #: [phone] Exam Date: 06/30/2019 0000 FAX #: Reason: SOB EXAMS: CPT: [id number] XR CHEST 1 V 97798 Fluoro Time: DAP (Gy m2): Air Kerma [...] PAGE 1 Signed Report Name: LUBNA LEACH [facility] : 1965 Age/S: 54 / M [address] #: [id number] Loc: [place] [address] Phys: Jethro Rosenthal MD Acct: [id number] Dis Date: Status:REG ER PHONE #: [phone] Exam Date: 06/30/2019 0000 FAX #: Reason: SOB EXAMS: CPT: [id number] XR CHEST 1 V 70703 Fluoro Time: DAP (Gy m2): Air Kerma (mGy): <Continued> Technologist: CHILO Melgoza,RVS Trnscb Date/Time: 07/01/2019 (0003) [email or web address] Orig Print D/T: S: 07/01/2019 (0007) PAGE 2 Signed ReportCBC W/O [id number] 23:55:00 Test Item Value Reference Range Interpretation [...] 7.0-9.6 H MPV) - XR CHEST 1 [id number] 11:34:00 Name: LUBNA LEACH [facility] : 1965 Age/S: 54 / M [address] Unit #: [id number] Loc: [place] [address] Phys: Tejas Feliciano MD Acct: [id number] Dis Date: Status: REG ER PHONE #: [phone] Exam Date: 06/26/2019 1105 FAX #: Reason: sore throat, dyspnea EXAMS: CPT: [id number] XR CHEST 1 V 49617 Fluoro Time: DAP (Gy m2): Air Kerma [...] PAGE 1 Signed Report Name: LUBNA LEACH [facility] : 1965 Age/S: 54 / M [address] Unit #: [id number] Loc: [place] [address] Phys: Tejas Feliciano MD Acct: [id number] Dis Date: Status: REG ER PHONE #: [phone] Exam Date: 06/26/2019 1105 FAX #: Reason: sore throat, dyspnea EXAMS: CPT: [id number] XR CHEST 1 V 32976 Fluoro Time: DAP (Gy m2): Air Kerma (mGy): <Continued> Technologist: Refugio Armenta, RT(R)(CT) Trnscb Date/Time: 06/26/2019 (0675) [email or web address] Orig Print D/T: S: 06/26/2019 (8278) PAGE 2 Signed ReportCOMPREHENSIVE METABOLIC [id number] 11:27:00 Test Item Value Reference Range Interpretation [...] 50-136 H TOTAL (test code = ALKP) [id number] 11:27:00 Test Item Value Reference Range Interpretation Comments LIPASE (test code = LIP) 88 Unit/L 114-286 L CBC W/AUTO [id number] 11:09:00 Test Item Value Reference Range Interpretation [...] = NO DIFF/SCN CRITERIA MDIFF) ANTINUCLEAR ANTIBODIES [id number] 02:42:00 Test Item Value Reference Range Interpretation Comments SEAN DIRECT (test code Negative () = ANADIR) Neg ative <1:80 Borderline 1:8 0 Positive >1:80Performed At: [facility] [address] [place], [place] [id number] ivan Womack MD Ph:[phone] ACUTE HEPATITIS [id number] 02:42:00 Test Item Value Reference Range Interpretation Comments AB HEPATITIS A IGM NON REACTIVE NON REACT. Testing d one at (test code = INDEX CLEAR [place] O[place] HAVMAB) [facility] [address] [place] [address]. [place] [address] AB HEPATITIS B <3.1 mIU/mL Immunity>9.9 A Status of SURFACE (test code Immunity = HBSAB) Anti-H Bs Level --- I ncon sistent with Immunity 0.0 - 9.9Consistent w ith Immunity >9.9Performed A t: [facility] [place], [place] [id number] Kyle L MD Ph:[phone] ST PERFORMED AT [facility] [address] [place], [place] [address] AG HEPATITIS B NON REACTIVE NonReactive Testing done at SURFACE (test code INDEX [facility]AR [place] [facility] = HBSAG) [facility] [address] [place] [address] AB HEPATITIS B NON REACTIVE NON REACT. Testing done at CORE IGM (test INDEX CLEAR HOOKS RE GIONAL code = HBCMAB) [facility] [address] [place] [address] AB HEPATITIS C REACTIVE INDEX NON REACT. A Testing don e at (test code = CLEAR HOOKS [place] ONAL HCVAB) [facility] [address] [place] [address] AB [id number] 02:42:00 Test Item Value Reference Range Interpretation Comments AB <20.0 Units 0.0-20.0 ANTI-MITOCHONDRIAL Ne gative 0.0 - (test code = 20.0 MITOAB) Equi vocal 20.1 - 24.9 Positive >24.9Mitochondr ial (M2) Antibodies are found in 90-96% ofpatien ts with primary biliary cirrhosis.Perfo rmed At: [facility] [id number] ra Ev GOMEZ Ph:[phone] ANTINUCLEAR ANTIBODIES [id number] 16:45:00 Test Item Value Reference Range Interpretation Comments SEAN DIRECT (test code Negative () = ANADIR) Neg ative <1:80 Borderline 1:8 0 Positive >1:80Performed At: [facility] [address] [id number] ivan Womack MD Ph:[phone] ACUTE HEPATITIS [id number] 16:45:00 Test Item Value Reference Range Interpretation Comments AB HEPATITIS A IGM NON REACTIVE NON REACT. Testing d one at (test code = INDEX [place] O[place] HAVMAB) [facility] [address] [place] [address] AB HEPATITIS B <3.1 mIU/mL Immunity>9.9 A Status of SURFACE (test code Immunity = HBSAB) Anti-H Bs Level --- I ncon sistent with Immunity 0.0 - 9.9Consistent w ith Immunity >9.9Performed A t: [facility] [address] [id number] Kyle L MD Ph:[phone] ST PERFORMED AT [facility] [place] [address] [place], [place] [address] AG HEPATITIS B NON REACTIVE NonReactive Testing done at SURFACE (test code INDEX [facility] [place] [facility] = HBSAG) [facility] [address] [place] [address] AB HEPATITIS B NON REACTIVE NON REACT. Testing done at CORE IGM (test INDEX CLEAR HOOKS RE GIONAL code = HBCMAB) [facility] [address] [place] [address] AB HEPATITIS C REACTIVE INDEX NON REACT. A Testing don e at (test code = CLEAR HOOKS [place] ONAL HCVAB) [facility] [address] [place] [address] AB [id number] 16:45:00 Test Item Value Reference Range Interpretation Comments AB ANTI-MITOCHONDRIAL (test code = Units 0.0-20.0 MITOAB) [id number] 21:51:00 Test Item Value Reference Range Interpretation Comments GLUBED (test code = GLUBED) 168 mg/dL 70-110 H [id number] 15:58:00 Test Item Value Reference Range Interpretation Comments GLUBED (test code = GLUBED) 168 mg/dL 70-110 H [id number] 07:22:00 Test Item Value Reference Range Interpretation Comments GLUBED (test code = GLUBED) 113 mg/dL 70-110 H CBC W/AUTO [id number] 06:46:00 Test Item Value Reference Range Interpretation [...] BA#) 0.1 K/mm3 0.0-0.2 N COMPREHENSIVE METABOLIC [id number] 06:12:00 Test Item Value Reference Range Interpretation [...] 158 Units/L 50.0-136.0 H code = ALKP) [id number] 06:12:00 Test Item Value Reference Range Interpretation Comments MAGNESIUM (test code = MAG) 2.0 mg/dl 1.8-2.4 N [id number] 23:47:00 Test Item Value Reference Range Interpretation Comments GLUBED (test code = GLUBED) 179 mg/dL 70-110 H ANTINUCLEAR ANTIBODIES [id number] 16:47:00 Test Item Value Reference Range Interpretation Comments SEAN DIRECT (test code = ANADIR) NEGATIVE ACUTE HEPATITIS [id number] 16:47:00 Test Item Value Reference Range Interpretation Comments AB HEPATITIS A IGM NON REACTIVE NON REACT. Testing d one at (test code = INDEX CLEAR [place] ONAL HAVMAB) [facility] [address] [place] [address]. [place] [address] AB HEPATITIS B mIU/mL Immune >9.9 SURFACE (test code = HBSAB) AG HEPATITIS B NON REACTIVE NonReactive Testing done at SURFACE (test code INDEX CLEAR [place] [facility] = HBSAG) [facility] [address] [place] [address]. [place] [address] AB HEPATITIS B NON REACTIVE NON REACT. Testing done at CORE IGM (test INDEX CLEAR HOOKS RE GIONAL code = HBCMAB) [facility] [address] [place] [address]. [place] [address] AB HEPATITIS C REACTIVE INDEX NON REACT. A Testing don e at (test code = CLEAR HOOKS [place] ONAL HCVAB) [facility] [address] [place] [address]. [place] [address] AB [id number] 16:47:00 Test Item Value Reference Range Interpretation Comments AB ANTI-MITOCHONDRIAL (test code = Units 0.0-20.0 MITOAB) AB HEPATITIS A [id number] 16:41:00 Test Item Value Reference Range Interpretation Comments AB HEPATITIS A IGM (test NON REACTIVE INDEX NON REACT. code = HAVMAB) AG HEPATITIS B [id number] 16:41:00 Test Item Value Reference Range Interpretation Comments AG HEPATITIS B SURFACE NON REACTIVE INDEX NonReactive (test code = HBSAG) AB HEPATITIS B CORE [id number] 16:41:00 Test Item Value Reference Range Interpretation Comments AB HEPATITIS B CORE IGM NON REACTIVE INDEX NON REACT. (test code = HBCMAB) AB HEPATITIS [id number] 16:41:00 Test Item Value Reference Range Interpretation Comments AB HEPATITIS C (test code = REACTIVE INDEX NON REACT. A HCVAB) [id number] 16:40:00 Test Item Value Reference Range Interpretation Comments GLUBED (test code = GLUBED) 167 mg/dL 70-110 H [id number] 13:52:00 Test Item Value Reference Range Interpretation Comments GLUBED (test code = GLUBED) 139 mg/dL 70-110 H VITAMIN [id number] 13:03:00 Test Item Value Reference Range Interpretation Comments VITAMIN B12 (test code = VITB12) 697 pg/mL 193-986 N THYROID STIMULATING [id number] 13:03:00 Test Item Value Reference Range Interpretation Comments THYROID STIMULATING 1.83 IU/ML 0.47-5.01 N Result i s in HORMONE (test code = Interna tional TSH) Units/millilite r [id number] 12:40:00 Test Item Value Reference Range Interpretation Comments HGBA1C% (test code = HGBA1C%) 6.4 %A1C 4.8-6.0 H ESTIMATED AVERAGE GLUCOSE (test 137 MG/DL code = EAG) - US ABDOMEN [id number] 12:20:00 FAX: Beto Urias [phone] [place]: St: [facility] FAX: Leslie Larsen [phone] Name: LUBNA LEACH [facility] : 1965 Age/S: 54/M [address] [facility] Unit #: [id number] Loc: [place] [facility]: Gael Garcia [address] Acct: [id number] Dis Date: Status: ADM IN PHONE #: [phone] Exam Date: 05/16/2019 1046 FAX #: [phone] Reason: Elevated LFT Report Has Been Amended EXAMS: CPT CODE: [id number] US ABDOMEN LTD [address] Addendum - 05/16/2019 SIGNED 05/16/2019 ADDENDUM: [id number] US/USABDLTD Addendum: A typographical air occurred described [...] 1 Signed Report (CONTINUED) FAX: Beto Urias [phone] [place]: St: [facility] FAX: Gael Larsen [phone] Name: LUBNA LEACH [facility] : 1965 Age/S: 54/M [address] [facility] Unit #: [id number] Loc: DIA[place], [place] Phys: Gael Garcia [address] Acct: [id number] Dis Date: Status: ADM IN PHONE #: [phone] Exam Date: 05/16/2019 1046 FAX #: [phone] Reason: Elevated LFT Report Has Been Amended EXAMS: CPT CODE: [id number] US ABDOMEN LTD [address] <Continued> Impression: No acute abnormality in the right upper quadrant. Liver size slightly enlarged with fatty changes. CT shows slightly nonsmooth margins suggesting the possibility of cirrhosis, as well. No ascites recognized, currently. Location: [facility] Electronically Signed by Stan Smith on 05/16/2019 at 1108 Reported and signed by: Sahra Smith M.D. CC: Beto Boland MD; Gael BARRAZA Technologist: CARLOS ALBERTO HU [facility] Date/Time/By: 05/16/2019 (110) : By: [facility] PAGE 2 Signed Report FAX: Beto Urias [phone] [place]: St: [facility] FAX: Gael Larsen [phone] Name: LUBNA LEACH [facility] : 1965 Age[facility]S: 54/[facility] Unit #: [id number] Loc: D[place], [place] Phys: Gael Garcia [address] Acct: [id number] Dis Date: Status: ADM IN PHONE #: [phone] Exam Date: 05/16/2019 1046 FAX #: [phone] Reason: Elevated LFT Report Has Been Amended EXAMS: CPT CODE: [id number] US ABDOMEN LTD [address] <Continued> Orig Print D/T: S: 05/16/2019 (1112) PAGE 3 Signed Report- US ABDOMEN [id number] 11:08:00 FAX: Beto Urias [phone] [place]: St: ADM FAX: Leslie Larsen [phone] Name: LUBNA LEACH [facility] : 1965 Age/S: 54/M [address] [facility] Unit #: [id number] Loc: DIANA [place], [place] Phys: Gael Garcia [address] Acct: [id number] Dis Date: Status: ADM IN PHONE #: [phone] Exam Date: 05/16/2019 1046 FAX #: [phone] Reason: Elevated LFT EXAMS: CPT CODE: [id number] US ABDOMEN LTD [address] ULTRASOUND:- US ABDOMEN LTD History: Elevated liver [...] Technologist: CARLOS ALBERTO HU Trnscrd Date/Time/By: 05/16/2019 (5989) : By: [facility] PAGE 1 Signed Report FAX: Beto Urias [phone] [place]: St: ADM FAX: Gael Larsen [phone] Name: LUBNA LEACH [facility] : 1965 Age/S: 54/M [address] [facility] Unit #: [id number] Loc: D[place], [place] Phys: Gael Garcia [address] Acct: [id number] Dis Date: Status: ADM IN PHONE #: [phone] Exam Date: 05/16/2019 1046 FAX #: [phone] Reason: Elevated LFT EXAMS: CPT CODE: [id number] US ABDOMEN LTD [address] <Continued> Orig Print D/T: S: 05/16/2019 (9242) PAGE 2 Signed [id number] 07:18:00 Test Item Value Reference Range Interpretation Comments AMMONIA (test code = AMM) 9.5 MCMOL/L 11.0-32.0 L No sample received in the lab. Please collect if deemednecessary.Thank you!Lab DRUGS OF ABUSE SCREEN [id number] 06:29:00 Test Item Value Reference Interpretation Comments [...] [place]) concentrati on: 300 ng/mL CBC W/MANUAL [id number] 05:08:00 Test Item Value Reference Range Interpretation [...] MORPHOLOGY (test code NORMAL = PLTMORPH) PROTHROMBIN [id number] 01:10:00 Test Item Value Reference Range Interpretation Comments PROTHROMBIN TIME 12.6 SECONDS 9.9-12.8 N PATIENT (test code = PTP) INTERNATIONAL NORMAL 1.1 0.89-1.14 N THE INR IS TO BE USED RATIO (test code = ONLY FOR MONITORING INR) ORAL ANTICOAGULANTTH ERAPY. THE FOLLOWING A RE SUGGESTED RANGE S FROM [facility] LEGE OF CHEST PHYSICIANS:ANGELA CATION INR VALUEPROPHYLAXI S OF VENOUS THROMBOS IS (ORTHOPEDIC JACQUES TRAVON) 2.0 - 3.0PROP HYLAXIS OF VENOUS THROM BOSIS (OTHER THAN HIG H-RISK SURGERY) 2.0 - 3.0TRE ATMENT OF DEEP VEIN THROMBOSIS OR PULMONARY EMBOL ISM 2.0 - 3.0PREV ENTION OF SYSTEMIC EMB OLISM TISSUE HEART VA LVES 2.0 - 3.0 AC AK CHIN MYOCARDIAL INFA RCTION (TO PREVENT SYSTEMIC EMBOLI [...] 3 .5 Specimen comments: Clean CatchTHROMBOPLASTIN TIME [id number] 01:10:00 Test Item Value Reference Range Interpretation Comments THROMBOPLASTIN TIME 33.50 SECONDS 25.86-36.07 N [place] [facility] PARTIAL (test code = Therape utic Range - PTT) APTT of 55.8-85 .4 secondscorrelat es with plasma heparin concentration o f 0.2-0.4 u/mL Ne w range effective - Specimen comments: Clean CatchBASIC METABOLIC [id number] 01:09:00 Test Item Value Reference Range Interpretation [...] 8.0 mg/dl 8.0-10.5 N Specimen comments: Clean Practice Management e-ToolsHEPATIC FUNCTION PANEL [id number] 01:09:00 Test Item Value Reference Range Interpretation [...] H code = ALKP) Specimen comments: Clean [id number] 01:09:00 Test Item Value Reference Range Interpretation Comments LIPASE (test code = 560 Units/L 65.0-230.0 H 2+ LIPEM IC SAMPLE. LIP) Specimen comments: Clean CatchB-TYPE NATRIURETIC [id number] 01:09:00 Test Item Value Reference Range Interpretation Comments B-TYPE NATRIURETIC PEPTIDE (test 33 PG/ML 5-100 N code = BNP) Specimen comments: Clean CatchBASIC METABOLIC [id number] 00:59:00 Test Item Value Reference Range Interpretation [...] N Specimen comments: Clean CatchHEPATIC FUNCTION PANEL [id number] 00:59:00 Test Item Value Reference Range Interpretation [...] H code = ALKP) Specimen comments: Clean [id number] 00:59:00 Test Item Value Reference Range Interpretation Comments LIPASE (test code = 560 Units/L 65.0-230.0 H 2+ LIPEM IC SAMPLE. LIP) Specimen comments: Clean CatchB-TYPE NATRIURETIC [id number] 00:59:00 Test Item Value Reference Range Interpretation Comments B-TYPE NATRIURETIC PEPTIDE (test code PG/ML 5-100 = BNP) Specimen comments: Clean CatchBASIC METABOLIC [id number] 00:54:00 Test Item Value Reference Range Interpretation [...] = CA) mg/dl 8.0-10.5 Specimen comments: Clean Practice Management e-ToolsHEPATIC FUNCTION PANEL [id number] 00:54:00 Test Item Value Reference Range Interpretation [...] 50.0-136.0 code = ALKP) Specimen comments: Clean [id number] 00:54:00 Test Item Value Reference Range Interpretation Comments LIPASE (test code = LIP) Units/L 65.0-230.0 Specimen comments: Clean CatchB-TYPE NATRIURETIC [id number] 00:54:00 Test Item Value Reference Range Interpretation Comments B-TYPE NATRIURETIC PEPTIDE (test code PG/ML 5-100 = BNP) Specimen comments: Clean CatchURINALYSIS [id number] 00:52:00 Test Item Value Reference Range Interpretation [...] NONE BACU) Specimen comments: Clean CatchCBC W/MANUAL [id number] 00:46:00 Test Item Value Reference Range Interpretation [...] code = LYMPH) % 20-40 CBC W/MANUAL [id number] 00:46:00 Test Item Value Reference Range Interpretation [...] (test code = LYMPH) % 20-40 URINALYSIS [id number] 00:45:00 Test Item Value Reference Range Interpretation [...] comments: Clean Catch- CT ABD PELVIS W/O [id number] 23:43:00 FAX: Nathan Prince MD [place]: St: REG Name: LUBNA LEACH [facility] : 1965 Age/S: 54/M [address] [facility] Unit: [id number] Loc: [address] Phys: [place] [id number] Acct: [id number] Dis Date: Status: REG ER PHONE #: [phone] Exam Date: 05/15/2019 2316 FAX #: [phone] Reason: ruq pain EXAMS: CPT CODE: [id number] CT ABD PELVIS W/O CONT 64915 CLINICAL HISTORY: Right upper quadrant abdominal pain,shortness [...] Signed Report (CONTINUED) FAX: Nathan Prince MD [place]: St: REG Name: LUBNA LEACH [facility] : 1965 Age/S: 54/M [address] [facility] Unit: [id number] Loc: [address] Phys: [place] [id number] Acct: [id number] Dis Date: Status: REG ER PHONE #: [phone] Exam Date: 05/15/2019 2316 FAX #: [phone] Reason: ruq pain EXAMS: CPT CODE: [id number] CT ABD PELVIS W/O CONT 06034 <Continued> This exam was performed according to ourdepartmental dose-optimization program, which includes automated exposure control, adjustment of the mA and/or kV according to patient size and/or use of iterative reconstruction technique at 2343 Reported and signed by: Lennox Purvis M.D. CC: Nathan Prince MD Technologist: STANTON Good Dt/Tm: 05/15/2019 (0631) [email or web address] Orig Print D/T: S: 05/15/2019 (7029 PAGE 2 Signed Report- XR CHEST 2 [id number] 23:29:00 FAX: Nathan Prince MD [place]: St: REG Name: LUBNA LEACH [facility] : 1965 Age/S: 54/M [address] [facility] Unit#: [id number] Loc: [address] Phys: [place] [id number] Acct: [id number] Dis Date: Status: REG ER PHONE #: [phone] Exam Date: 05/15/2019 2320 FAX #: [phone] Reason: sob EXAMS: CPT CODE: [id number] XR CHEST 2 V 50504 EXAM: - XR CHEST 2 V HISTORY: Shortness of breath. COMPARISON: April 17, 2018. FINDINGS: PA and lateral view of the chest is provided. Heart size and vascularity are within normal limits. There is no focal consolidation. No effusion, pneumothorax, or acute osseous abnormality. IMPRESSION: No consolidation or pleural effusion. at 5639 Reported and signed by: Choco Wells M.D. CC: Nathan Prince MD Technologist: TOO JIMENEZ Trnscrd Date/Time/By: 05/15/2019 (6476) : By: [email or web address] PAGE 1 Signed Report FAX: Nathan Prince MD [place]: St: REG -- Name: LUBNA LEACH [facility] : 1965 Age/S: 54/M [address] [facility] Unit #: [id number] Loc: [address] Phys: [place] [address] Acct: [id number] Dis Date: Status: REG ER PHONE #: [phone] Exam Date: 05/15/2019 2320 FAX #: [phone] Reason: sob EXAMS: CPT CODE: [id number] XR CHEST 2 V 06965 <Continued> Orig Print D/T: S: 05/15/2019 (6926) PAGE 2 Signed Report
--- NOTE | 2022-03-17 09:31 | EDPHYS ---
Physician Documentation [facility] Name: Huber Augustine Age: 57 yrs Sex: Male : 1965 Arrival Date: 03/17/2022 Time: 08:38 Bed 6 Private MD: ED Physician Huber Greco HPI: 03/17 09:35 This 57 yrs old Male presents to ER via Ambulatory with complaints of Feet Swelling, kdr Foot Pain - right. 09:35 The patient presents with pain, that is acute. The complaints affect the left foot, kdr right foot. Context: The problem was sustained at home, resulted from She has a history of diabetes and has chronic pain in his feet. Last few days he states he has been power washing on his feet of been very wet. He has had a blister or lesion, up on the base of his foot around the ball of his foot on the right side. He is concerned that that may potentially lead to an early infection. At this time the patient is not on acute appearing there is no evidence of significant cellulitis to his foot nor early cellulitis.. Onset: The symptoms/episode began/occurred gradually, 3 day(s) ago. Modifying factors: The symptoms are alleviated by nothing. Associated signs and symptoms: The patient has no apparent associated signs or symptoms. Severity of symptoms: At their worst the symptoms were very mild, in the emergency department the symptoms are unchanged. The patient has not experienced similar symptoms in the past. The patient has not recently seen a physician. Historical: - Allergies: 09:09 No Known Allergies; aa5 - PMHx: 09:08 diabetes mellitus; neuropathy; aa5 - Immunization history:: Adult Immunizations unknown. - Social history:: Smoking status: Patient reports the use of cigarette tobacco products, smokes one-half pack cigarettes per day. ROS: 09:35 Constitutional: Negative for fever, chills, and weight loss, Eyes: Negative for injury, kdr pain, redness, and discharge, ENT: Negative for injury, pain, and discharge, Neck: Negative for injury, pain, and swelling, Cardiovascular: Negative for chest pain, palpitations, and edema, Respiratory: Negative for shortness of breath, cough, wheezing, and pleuritic chest pain, Abdomen/GI: Negative for abdominal pain, nausea, vomiting, diarrhea, and constipation, Back: Negative for injury and pain, : Negative for injury, bleeding, discharge, and swelling, Neuro: Negative for headache, weakness, numbness, tingling, and seizure activity. Psych: Negative for depression, anxiety, suicide ideation, homicidal ideation, and hallucinations, Allergy/Immunology: Negative for hives, rash, and allergies, Endocrine: Negative for neck swelling, polydipsia, polyuria, polyphagia, and marked weight changes, Hematologic/Lymphatic: Negative for swollen nodes, abnormal bleeding, and unusual bruising. 09:35 Skin: Positive for erythema, lesions, of the right foot. Exam: 09:35 Constitutional: This is a well developed, well nourished patient who is awake, alert, kdr and in no acute distress. 09:35 Skin: Appearance: normal except for affected area, Generally speaking, there is no evidence of any acute infection on the patient's lower extremities including the soles of his feet. He has some chronic changes but otherwise the patient's extremities are well-appearing and normal if any swelling to both lower extremities if any swelling existed so on the right side.. Vital Signs: 09:07 BP 139 / 94; Pulse 66; Resp 18 S; Temp 98.1(O); Pulse Ox 100% on R/A; Weight 81.65 kg aa5 (R); Height 6 ft. 0 in. (182.88 cm) (R); 09:07 Body Mass Index 24.41 (81.65 kg, 182.88 cm) aa5 MDM: 09:30 Patient medically screened. kdr 09:35 Data reviewed: vital signs, nurses notes. Counseling: I had a detailed discussion with kdr the patient and/or guardian regarding: the historical points, exam findings, and any diagnostic results supporting the discharge/admit diagnosis, the need for outpatient follow up. Administered Medications: 09:46 Drug: Ibuprofen 800 mg Route: PO; 7 09:46 Follow up: Response: Medication administered at discharge. jl7 09:46 Drug: Gabapentin 300 mg Route: PO; 7 09:46 Follow up: Response: Medication administered at discharge. jl7 Disposition Summary: 03/17/22 09:30 Discharge Ordered Location: Home kdr Problem: chronic kdr Symptoms: are unchanged kdr Condition: Stable kdr Diagnosis - Lower extremity pain, peripheral neuropathy kdr Followup: kdr - With: Private Physician - When: 2 - 3 days - Reason: If symptoms return, Further diagnostic work-up, Recheck today's complaints, Continuance of care, Re-evaluation by your physician Discharge Instructions: - Discharge Summary Sheet kdr - Diabetic Nephropathy kdr - Peripheral Neuropathy kdr - Foot Pain kdr Forms: - Medication Reconciliation Form kdr - Thank You Letter kdr - Antibiotic Education kdr - Work release form eb Prescriptions: - gabapentin 300 mg Oral tablet extended release 24 hr - take 1 tablet by ORAL route once daily As needed; 12 tablet; Refills: 0, kdr Product Selection Permitted - Cephalexin 500 mg Oral Capsule - take 1 capsule by ORAL route every 12 hours for 3 days; 6 capsule; Refills: 0, kdr Product Selection Permitted - Ibuprofen 800 mg Oral Tablet - take 1 tablet by ORAL route every 8 hours As needed take with food; 15 tablet; kdr Refills: 0, Product Selection Permitted Signatures: Huber Greco MD MD kdr Caroline Neal, RN RN aa5 Delfina Ledezma RN RN jl7
--- NOTE | 2022-03-17 09:31 | ER ---
Nurse's Notes 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 Coronavirus screen: At this time, the client does not indicate any symptoms associated with coronavirus-19. Ebola Screen: No symptoms or risks identified at this time. Initial Sepsis Screen: Does the patient meet any 2 criteria? No. Patient's initial sepsis screen is negative. Does the patient have a suspected source of infection? No. Patient's initial sepsis screen is negative. Risk Assessment: Do you want to hurt yourself or someone else? Patient reports no desire to harm self or others. Onset of symptoms was 2021. 09:07 Acuity: ROSALEE 3 aa5 09:07 Method Of Arrival: Ambulatory aa5 Historical: - Allergies: 09:09 No Known Allergies; aa5 - PMHx: 09:08 diabetes mellitus; neuropathy; aa5 - Immunization history:: Adult Immunizations unknown. - Social history:: Smoking status: Patient reports the use of cigarette tobacco products, smokes one-half pack cigarettes per day. Screenin:20 Abuse screen: Denies threats or abuse. Denies injuries from another. Nutritional jl7 screening: No deficits noted. Tuberculosis screening: No symptoms or risk factors identified. 09:46 Fall Risk None identified. jl7 Assessment: 09:20 General: Appears in no apparent distress. uncomfortable, Behavior is cooperative, jl7 appropriate for age. Pain: Complains of pain in ball of right foot. Neuro: Level of Consciousness is awake, alert, obeys commands, Oriented to person, place, time, situation. Cardiovascular: Patient's skin is warm and dry. Respiratory: Airway is patent Respiratory effort is even, unlabored, Respiratory pattern is regular, symmetrical. Derm: Skin has blisters on Popped blister noted to bottom right foot Skin is pink, warm \\T\\ dry. Vital Signs: 09:07 BP 139 / 94; Pulse 66; Resp 18 S; Temp 98.1(O); Pulse Ox 100% on R/A; Weight 81.65 kg aa5 (R); Height 6 ft. 0 in. (182.88 cm) (R); 09:07 Body Mass Index 24.41 (81.65 kg, 182.88 cm) aa5 ED Course: 08:38 Patient arrived in ED. am2 08:43 Huber Greco MD is Attending Physician. kdr 09:07 Arm band placed on. aa5 09:08 Triage completed. aa5 09:14 Delfina Ledezma, RN is Primary Nurse. jl7 09:20 Patient has correct armband on for positive identification. jl7 09:46 No provider procedures requiring assistance completed. Patient did not have IV access jl7 during this emergency room visit. Administered Medications: 09:46 Drug: Ibuprofen 800 mg Route: PO; jl7 09:46 Follow up: Response: Medication administered at discharge. jl7 09:46 Drug: Gabapentin 300 mg Route: PO; jl7 09:46 Follow up: Response: Medication administered at discharge. jl7 Medication: 09:20 VIS not applicable for this client. jl7 Outcome: 09:30 Discharge ordered by . kdr 09:46 Discharged to home ambulatory. jl7 09:46 Condition: stable 09:46 Discharge instructions given to patient, Instructed on discharge instructions, follow up and referral plans. medication usage, Demonstrated understanding of instructions, follow-up care, medications, Prescriptions given X 3. 09:47 Patient left the ED. jl7 Signatures: Huber Greco MD MD kdr Caroline Neal, RN RN [facility] Delfina Ledezma, CHANELLE RN jl7 Sharita Weston am
[2022-03-17] MEDS ORDERED: IBUPROFEN 400 MG TAB ONE (09:42)
[2022-03-17] MEDS ORDERED: GABAPENTIN 300 MG CAP ONE (09:42)
[2022-03-17 10:29] VITALS: BP 139/94; TEMP 98.1; O2SAT 100
== END 2022-03-17 09:47 | disposition home or self-care (01) ==
LOC: ER 08:37
DX: E11.42 Type 2 diabetes mellitus with diabetic polyneuropathy (principal); M79.605 Pain in left leg; M79.604 Pain in right leg; F17.210 Nicotine dependence, cigarettes, uncomplicated
CPT/HCPCS: 99283

== ENCOUNTER 2022-03-20 01:38 | Emergency (ER) | payer OTHER ==
--- OUTSIDE RECORDS SUMMARY | 2022-03-20 01:43 | XMS REPORT | Continuity of Care Document ---
:1965 Author Organization [facility] t Address [address] [place] [address] Care Team Providers Name Role Phone SAHRA [...] 2018-0 [facility] 8-27 [place] 00:00: d 00 [facility] morphine DA Active AR REDNESS/ITCH 2018-0 HC A ING TO AREA 8-27 Maryuri an OF INJECTION 00:00: d 00 [facility] No Known DA Active U 2017-0 [facility] Allergie 6-13 Pearlan s 00:00: d 00 [facility] Medications This patient has no known medications. Procedures This patient has no known procedures. Encounters Start End Encounter Admission Attending Care Care Encounter Source Date/Time Date/Time Type Type Clinicians Facility Department ID 2020-09-07 Inpatient HCAPM NELIDA [id number] [facility] 20:04:00 [facility] 2020-01-10 Inpatient HCAPM NELIDA [id number] [facility] 11:42:00 [facility] 2019-11-22 Inpatient HCAPM NELIDA [id number] [facility] 08:41:00 [id number] [facility] 2019-05-12 Inpatient E MANUELA MED 7500 MHB L 23:36:00 2021-05-19 2021-05-19 Emergency E MANUELA CORDERO MARK 7503 MANUELA 12:33:00 17:33:00 EMI 2019-11-11 2019-11-11 Emergency E MHSE MHSE 7502 18:37:00 18:37:00 [facility] 2019-10-19 2019-10-19 Emergency E MHSE MHSE 7501 10:27:00 10:27:00 [facility] Results Test Description Test Time [...] = MDIFF) NO DIFF/SCN CRITERIA CBC W/AUTO [id number] 20:54:00 Test Item Value Reference Range Interpretation [...] code NO DIFF/SCN CRITERIA = MDIFF) RBC [id number] 20:54:00 Test Item Value Reference Range Interpretation Comments PLATELET MORPHOLOGY (test code = NORMAL PLTMORPH) CBC W/AUTO [id number] 20:54:00 Test Item Value Reference Range Interpretation [...] NO DIFF/SCN CRITERIA = MDIFF) BASIC METABOLIC [id number] 20:47:00 Test Item Value Reference Range Interpretation [...] CA) 8.5 MG/DL 8.5-10.1 N HEPATIC FUNCTION [id number] 20:47:00 Test Item Value Reference Range Interpretation [...] 189 Unit/L 50-136 H code = ALKP) [id number] 20:47:00 Test Item Value Reference Range Interpretation Comments LIPASE (test code = LIP) 219 Unit/L 114-286 N CBC W/AUTO [id number] 20:34:00 Test Item Value Reference Range Interpretation [...] code = DIFF/SCN CRITERIA MDIFF) BASIC METABOLIC [id number] 12:34:00 Test Item Value Reference Range Interpretation [...] CA) 9.5 MG/DL 8.5-10.1 N HEPATIC FUNCTION [id number] 12:34:00 Test Item Value Reference Range Interpretation [...] 291 Unit/L 50-136 H code = ALKP) [id number] 12:34:00 Test Item Value Reference Range Interpretation Comments LIPASE (test code = LIP) 207 Unit/L 114-286 N BASIC METABOLIC [id number] 12:29:00 Test Item Value Reference Range Interpretation [...] CA) 9.5 MG/DL 8.5-10.1 N HEPATIC FUNCTION [id number] 12:29:00 Test Item Value Reference Range Interpretation [...] TOTAL (test Unit/L 50-136 code = ALKP) [id number] 12:29:00 Test Item Value Reference Range Interpretation Comments LIPASE (test code = LIP) 207 Unit/L 114-286 N CBC W/AUTO [id number] 12:17:00 Test Item Value Reference Range Interpretation [...] DIFF/SCN CRITERIA MDIFF) - CT ABD PELVIS [id number] 11:10:00 Name: LUBNA LEACH [facility] : 1965 Age/S: 54 / M [address] Unit #: [id number] Loc: [place] [address] Phys: Nito Golden MD Acct: [id number] Dis Date: Status: REG ER PHONE #: [phone] Exam Date: 11/22/2019 105 FAX #: Reason: rlq pain EXAMS: CPT: [id number] CT ABD PELVIS W/CONT 19349 LOCATION: T18 EXAM: CT ABDOMEN AND PELVIS [...] 11/22/2019 (1113) PAGE 1 Signed ReportBASIC METABOLIC [id number] 10:40:00 Test Item Value Reference Range Interpretation [...] CA) 9.0 MG/DL 8.5-10.1 N HEPATIC FUNCTION [id number] 10:40:00 Test Item Value Reference Range Interpretation [...] 112 Unit/L 50-136 N code = ALKP) [id number] 10:40:00 Test Item Value Reference Range Interpretation Comments LIPASE (test code = LIP) 106 Unit/L 114-286 L UA RFLX MICR CULT IF [id number] 10:12:00 Test Item Value Reference Range Interpretation [...] URINE: CLEAN CATCHIndication for culture: Dysuria/FrequencyCBC W/AUTO [id number] 09:46:00 Test Item Value Reference Range Interpretation [...] CRITERIA MDIFF) UA RFLX MICR CULT IF [id number] 09:45:00 Test Item Value Reference Range Interpretation [...] URINE: CLEAN CATCHIndication for culture: Dysuria/FrequencyCBC W/AUTO [id number] 23:05:00 Test Item Value Reference Range Interpretation [...] AUTO DIFFERENTIAL. UA RFLX MICR CULT IF [id number] 22:39:00 Test Item Value Reference Range Interpretation [...] CATCHIndication for culture: Dysuria/Frequency- CT ABD PELVIS [id number] 22:30:00 Name: LUBNA LEACH [facility] : 1965 Age/S: 54 / M [address] Unit #: [id number] Loc: [place] [address] Phys: Lino Ordaz MD Acct: [id number] Dis Date: Status: REG ER PHONE #: [phone] Exam Date: 10/14/20192219 FAX #: Reason: abdominal pain EXAMS: CPT: [id number] CT ABD PELVIS W/CONT 61816 EXAM: - CTABD PELVIS W/CONT HISTORY: Abdominal [...] 1 Signed Report (CONTINUED) Name: LUBNA LEACH [facility] Binu : 1965 Age/S: 54 / M [address] [facility] Unit #: [id number] Loc: [place] [address] Phys: Lino Ordaz MD Acct: [id number] Dis Date: Status: REG ER PHONE #: [phone] Exam Date: 10/14/20192219 FAX #: Reason: abdominal pain EXAMS: CPT: [id number] CT ABD PELVIS W/CONT 87043 <Continued> at 2230 Reported and signed by: Choco Wells M.D. CC: Lino Ordaz MD; Nuha BARRAZA Technologist:Leeroy Maldonado, RT(R)(CT)(MRI) CTDI: DLP: Trnscb Date/Time: 10/14/2019 (2230) [email or web address] Orig Print D/T: S: 10/14/2019 (0355) PAGE 2 Signed Report UA RFLX MICR CULT IF [id number] 22:21:00 Test Item Value Reference Range Interpretation [...] CLEAN CATCHIndication for culture: Dysuria/Frequency COMPREHENSIVE METABOLIC [id number] 21:35:00 Test Item Value Reference Range Interpretation [...] code = ALKP) - XR CHEST 1 [id number] 21:30:00 Name: LUBNA LEACH [facility] : 1965 Age/S: 54 / M [address] Unit #: [id number] Loc: [place] [address] Phys: Lino Ordaz MD Acct: [id number] Dis Date: Status: REG ER PHONE #: [phone] Exam Date: 10/14/20192112 FAX #: Reason: liver failure EXAMS: CPT: [id number] XR CHEST 1 V 72709 Fluoro Time: DAP (Gy m2): Air Kerma [...] PAGE 1 Signed Report Name: LUBNA LEACH [facility] : 1965 Age/S: 54 / M [address] Unit #: [id number] Loc: [place] [address] Phys: Lino Ordaz MD Acct: [id number] Dis Date: Status: REG ER PHONE #: [phone] Date: 10/14/20192112 FAX #: Reason: liver failure EXAMS: CPT: [id number] XR CHEST 1 V 54663 Fluoro Time: DAP (Gy m2): Air Kerma (mGy): <Continued> Technologist: Farooq Lang, RT(R)(CT) Trnscb Date/Time: 10/14/2019 (2129) [email or web address] Orig Print D/T: S: 10/14/2019 (2133) PAGE 2 Signed ReportCBC W/AUTO [id number] 21:25:00 Test Item Value Reference Range Interpretation [...] code = DIFF/SCN CRITERIA MDIFF) COMPREHENSIVE METABOLIC [id number] 21:22:00 Test Item Value Reference Range Interpretation [...] Unit/L 50-136 code = ALKP) CBC W/AUTO [id number] 13:44:00 Test Item Value Reference Range Interpretation [...] AUTO DIFFERENTIAL. UA RFLX MICR CULT IF [id number] 13:13:00 Test Item Value Reference Range Interpretation [...] URINE: CLEAN CATCHIndication for culture: Dysuria/FrequencyBASIC METABOLIC [id number] 13:12:00 Test Item Value Reference Range Interpretation [...] 8.5-10.1 N UA RFLX MICR CULT IF [id number] 13:12:00 Test Item Value Reference Range Interpretation [...] URINE: CLEAN CATCHIndication for culture: Dysuria/FrequencyCBC W/AUTO [id number] 12:59:00 Test Item Value Reference Range Interpretation [...] DIFF/SCN CRITERIA MDIFF) - CT HEAD/BRAIN W/O [id number] 12:55:00 Name: LUBNA LEACH [facility] : 1965 Age/S: 54 / M [address] Unit #: [id number] Loc: [place] [address] Phys: Nito Golden MD Acct: [id number] Dis Date: Status: REG ER PHONE #: [phone] Exam Date: 08/08/2019 1230 FAX #: Reason: headache EXAMS: CPT: [id number] CT HEAD/BRAIN W/O CONT 89775 Site ID: [id number] CT head TECHNIQUE: CT [...] Armenta, RT(R)(CT) CTDI: DLP: Trnscb Date/Time: 08/08/2019 (7075) t.[email or web address] Orig Print D/T: S: 08/08/2019 (4600) PAGE 1 Signed ReportTROPONIN I RAPID 2019-07-01 00:13:00 Test Item Value Reference Range Interpretation Comments TROPONIN I RAPID 0.00 ng/mL 0.00-0.08 N - The use o f serial (test code = sampling and te sting TROPIRAP) protocol is a recommended pra ctice- An elevated tro ponin level alone is often not sufficient for diagnosis of my ocardial infarction. HEPATIC FUNCTION [id number] 00:11:00 Test Item Value Reference Range Interpretation [...] code = 27 Unit/L 26-192 N CK) [id number] 00:11:00 Test Item Value Reference Range Interpretation Comments LIPASE (test code = LIP) 230 Unit/L 114-286 N NT PRO-BRAIN NATRIURETIC [id number] 00:11:00 Test Item Value Reference Range Interpretation Comments NT PRO-BRAIN NATRIURETIC PEPTI 137 PG/ML 0-100 H (test code = PROBNP) CHEMISTRY 8 [id number] 00:08:00 Test Item Value Reference Range Interpretation [...] 56-130 N code = GFRBED) CHEMISTRY 8 [id number] 00:08:00 Test Item Value Reference Range Interpretation [...] code = GFRBED) - XR CHEST 1 [id number] 00:03:00 Name: LUBNA LEACH [facility] : 1965 Age/S: 54 / M [address] Unit #: [id number] Loc: [place] [address] Phys: Jethro Rosenthal MD Acct: [id number] Dis Date: Status: REG ER PHONE #: [phone] Exam Date: 06/30/2019 0000 FAX #: Reason: SOB EXAMS: CPT: [id number] XR CHEST 1 V 30438 Fluoro Time: DAP (Gy m2): Air Kerma [...] PAGE 1 Signed Report Name: LUBNA LEACH [facility] : 1965 Age/S: 54 / M [address]: [id number] Loc: [place] [address] Phys: Jethro Rosenthal MD Acct: [id number] Dis Date: Status:REG ER PHONE #: [phone] Exam Date: 06/30/2019 0000 FAX #: Reason: SOB EXAMS: CPT: [id number] XR CHEST 1 V 00093 Fluoro Time: DAP (Gy m2): Air Kerma (mGy): <Continued> Technologist: CHILO Melgoza,RVS Trnscb Date/Time: 07/01/2019 (0003) [email or web address] Orig Print D/T: S: 07/01/2019 (0007) PAGE 2 Signed ReportCBC W/O [id number] 23:55:00 Test Item Value Reference Range Interpretation [...] 7.0-9.6 H MPV) - XR CHEST 1 [id number] 11:34:00 Name: LUBNA LEACH [facility] : 1965 Age/S: 54 / M [address] Unit #: [id number] Loc: [place] [address] Phys: Tejas Feliciano MD Acct: [id number] Dis Date: Status: REG ER PHONE #: [phone] Exam Date: 06/26/2019 1105 FAX #: Reason: sore throat, dyspnea EXAMS: CPT: [id number] XR CHEST 1 V 04269 Fluoro Time: DAP (Gy m2): Air Kerma [...] PAGE 1 Signed Report Name: LUBNA LEACH [facility] : 1965 Age/S: 54 / M [address] Unit #: [id number] Loc: [place] [address] Phys: Tejas Feliciano MD Acct: [id number] Dis Date: Status: REG ER PHONE #: [phone] Exam Date: 06/26/2019 1105 FAX #: Reason: sore throat, dyspnea EXAMS: CPT: [id number] XR CHEST 1 V 98731 Fluoro Time: DAP (Gy m2): Air Kerma (mGy): <Continued> Technologist: Refugio Armenta, RT(R)(CT) Trnscb Date/Time: 06/26/2019 (6641) [email or web address].[email or web address] Orig Print D/T: S: 06/26/2019 (0468) PAGE 2 Signed ReportCOMPREHENSIVE METABOLIC [id number] 11:27:00 Test Item Value Reference Range Interpretation [...] 50-136 H TOTAL (test code = ALKP) [id number] 11:27:00 Test Item Value Reference Range Interpretation Comments LIPASE (test code = LIP) 88 Unit/L 114-286 L CBC W/AUTO [id number] 11:09:00 Test Item Value Reference Range Interpretation [...] = NO DIFF/SCN CRITERIA MDIFF) ANTINUCLEAR ANTIBODIES [id number] 02:42:00 Test Item Value Reference Range Interpretation Comments SEAN DIRECT (test code Negative () = ANADIR) Neg ative <1:80 Borderline 1:8 0 Positive >1:80Performed At: [facility] [place] [address] [place], [place] [id number] ivan Womack MD Ph:[phone] ACUTE HEPATITIS [id number] 02:42:00 Test Item Value Reference Range Interpretation Comments AB HEPATITIS A IGM NON REACTIVE NON REACT. Testing d one at (test code = INDEX CLEAR [place] ONAL HAVMAB) [facility] [address] [place] [address]. [place] [address] AB HEPATITIS B <3.1 mIU/mL Immunity>9.9 A Status of SURFACE (test code Immunity = HBSAB) Anti-H Bs Level --- I ncon sistent with Immunity 0.0 - 9.9Consistent w ith Immunity >9.9Performed A t: [facility]ia[facility] [place], [place] [id number] Kyle L MD Ph:[phone] ST PERFOR[facility] AT [facility] [address] [place], [place] [address] AG HEPATITIS B NON REACTIVE NonReactive Testing done at SURFACE (test code INDEX [place]AR [place] [facility] = HBSAG) [facility] [address] [place] [address] AB HEPATITIS B NON REACTIVE NON REACT. Testing done at CORE IGM (test INDEX CLEAR HOOKS RE GIONAL code = HBCMAB) [facility] [address] [place] [address] AB HEPATITIS C REACTIVE INDEX NON REACT. A Testing don e at (test code = CLEAR HOOKS [place] ONAL HCVAB) [facility] [address] [place] [address] AB [id number] 02:42:00 Test Item Value Reference Range Interpretation Comments AB <20.0 Units 0.0-20.0 ANTI-MITOCHONDRIAL Ne gative 0.0 - (test code = 20.0 MITOAB) Equi vocal 20.1 - 24.9 Positive >24.9Mitochondr ial (M2) Antibodies are found in 90-96% ofpatien ts with primary biliary cirrhosis.Perfo rmed At: [facility] [id number] ra Ev GOMEZ Ph:[phone] ANTINUCLEAR ANTIBODIES [id number] 16:45:00 Test Item Value Reference Range Interpretation Comments SEAN DIRECT (test code Negative () = ANADIR) Neg ative <1:80 Borderline 1:8 0 Positive >1:80Performed At: [facility] [address] [id number] ivan Womack MD Ph:[phone] ACUTE HEPATITIS [id number] 16:45:00 Test Item Value Reference Range Interpretation Comments AB HEPATITIS A IGM NON REACTIVE NON REACT. Testing d one at (test code = INDEX CLE[place] ONAL HAVMAB) [facility] [address] [place] [address] AB HEPATITIS B <3.1 mIU/mL Immunity>9.9 A Status of SURFACE (test code Immunity = HBSAB) Anti-H Bs Level --- I ncon sistent with Immunity 0.0 - 9.9Consistent w ith Immunity >9.9Performed A t: [facility] [address] [id number] Kyle L MD Ph:[phone] ST PERFORMED AT [facility] [place] [address] [place], [place] [address] AG HEPATITIS B NON REACTIVE NonReactive Testing done at SURFACE (test code INDEX [place]AR [place] [facility] = HBSAG) [facility] [address] [place] [address] AB HEPATITIS B NON REACTIVE NON REACT. Testing done at CORE IGM (test INDEX CLEAR HOOKS RE GIONAL code = HBCMAB) [facility] [address] [place] [address] AB HEPATITIS C REACTIVE INDEX NON REACT. A Testing don e at (test code = CLEAR HOOKS [place] ONAL HCVAB) [facility] [address] [place] [address] AB [id number] 16:45:00 Test Item Value Reference Range Interpretation Comments AB ANTI-MITOCHONDRIAL (test code = Units 0.0-20.0 MITOAB) [id number] 21:51:00 Test Item Value Reference Range Interpretation Comments GLUBED (test code = GLUBED) 168 mg/dL 70-110 H [id number] 15:58:00 Test Item Value Reference Range Interpretation Comments GLUBED (test code = GLUBED) 168 mg/dL 70-110 H [id number] 07:22:00 Test Item Value Reference Range Interpretation Comments GLUBED (test code = GLUBED) 113 mg/dL 70-110 H CBC W/AUTO [id number] 06:46:00 Test Item Value Reference Range Interpretation [...] BA#) 0.1 K/mm3 0.0-0.2 N COMPREHENSIVE METABOLIC [id number] 06:12:00 Test Item Value Reference Range Interpretation [...] 158 Units/L 50.0-136.0 H code = ALKP) [id number] 06:12:00 Test Item Value Reference Range Interpretation Comments MAGNESIUM (test code = MAG) 2.0 mg/dl 1.8-2.4 N [id number] 23:47:00 Test Item Value Reference Range Interpretation Comments GLUBED (test code = GLUBED) 179 mg/dL 70-110 H ANTINUCLEAR ANTIBODIES [id number] 16:47:00 Test Item Value Reference Range Interpretation Comments SEAN DIRECT (test code = ANADIR) NEGATIVE ACUTE HEPATITIS [id number] 16:47:00 Test Item Value Reference Range Interpretation Comments AB HEPATITIS A IGM NON REACTIVE NON REACT. Testing d one at (test code = INDEX CLEAR [place] ONAL HAVMAB) [facility] [address] [place] [address]. [place] [address] AB HEPATITIS B mIU/mL Immune >9.9 SURFACE (test code = HBSAB) AG HEPATITIS B NON REACTIVE NonReactive Testing done at SURFACE (test code INDEX CLEAR [place] = HBSAG) [facility] [address] [place] [address]. [place] [address] AB HEPATITIS B NON REACTIVE NON REACT. Testing done at CORE IGM (test INDEX CLEAR HOOKS RE GIONAL code = HBCMAB) [facility] [address] [place] [address]. [place] [address] AB HEPATITIS C REACTIVE INDEX NON REACT. A Testing don e at (test code = CLEAR HOOKS [place] ONAL HCVAB) [facility] [address] [place] [address]. [place] [address] AB [id number] 16:47:00 Test Item Value Reference Range Interpretation Comments AB ANTI-MITOCHONDRIAL (test code = Units 0.0-20.0 MITOAB) AB HEPATITIS A [id number] 16:41:00 Test Item Value Reference Range Interpretation Comments AB HEPATITIS A IGM (test NON REACTIVE INDEX NON REACT. code = HAVMAB) AG HEPATITIS B [id number] 16:41:00 Test Item Value Reference Range Interpretation Comments AG HEPATITIS B SURFACE NON REACTIVE INDEX NonReactive (test code = HBSAG) AB HEPATITIS B CORE [id number] 16:41:00 Test Item Value Reference Range Interpretation Comments AB HEPATITIS B CORE IGM NON REACTIVE INDEX NON REACT. (test code = HBCMAB) AB HEPATITIS [id number] 16:41:00 Test Item Value Reference Range Interpretation Comments AB HEPATITIS C (test code = REACTIVE INDEX NON REACT. A HCVAB) [id number] 16:40:00 Test Item Value Reference Range Interpretation Comments GLUBED (test code = GLUBED) 167 mg/dL 70-110 H [id number] 13:52:00 Test Item Value Reference Range Interpretation Comments GLUBED (test code = GLUBED) 139 mg/dL 70-110 H VITAMIN [id number] 13:03:00 Test Item Value Reference Range Interpretation Comments VITAMIN B12 (test code = VITB12) 697 pg/mL 193-986 N THYROID STIMULATING [id number] 13:03:00 Test Item Value Reference Range Interpretation Comments THYROID STIMULATING 1.83 IU/ML 0.47-5.01 N Result i s in HORMONE (test code = Interna tional TSH) Units/millilite r [id number] 12:40:00 Test Item Value Reference Range Interpretation Comments HGBA1C% (test code = HGBA1C%) 6.4 %A1C 4.8-6.0 H ESTIMATED AVERAGE GLUCOSE (test 137 MG/DL code = EAG) - US ABDOMEN [id number] 12:20:00 FAX: Beto Urias [phone] [place]: St: [facility] FAX: Leslie Larsen [phone] Name: LUBNA LEACH [facility] : 1965 Age/S: 54/M [address] [facility] Unit #: [id number] Loc: DIANA [facility]: Gael Garcia [address] Acct: [id number] Dis Date: Status: ADM IN PHONE #: [phone] Exam Date: 05/16/2019 1046 FAX #: [phone] Reason: Elevated LFT Report Has Been Amended EXAMS: CPT CODE: [id number] US ABDOMEN LTD [address] Addendum - 05/16/2019 SIGNED 05/16/2019 ADDENDUM: [id number] US/USABDLTD Addendum: A typographical air occurred described [...] 1 Signed Report (CONTINUED) FAX: Beto Urias [phone] [place]: St: [facility] FAX: Gael Larsen [phone] Name: LUBNA LEACH [facility] : 1965 Age/S: 54/M [address] [facility] [address] Unit #: [id number] Loc: D[place], [place] Phys: Gael Garcia [address] Acct: [id number] Dis Date: Status: ADM IN PHONE #: [phone] Exam Date: 05/16/2019 1046 FAX #: [phone] Reason: Elevated LFT Report Has Been Amended EXAMS: CPT CODE: [id number] US ABDOMEN LTD [address] <Continued> Impression: No acute abnormality in the right upper quadrant. Liver size slightly enlarged with fatty changes. CT shows slightly nonsmooth margins suggesting the possibility of cirrhosis, as well. No ascites recognized, currently. Location: [facility] Electronically Signed by Stan Smith on 05/16/2019 at 1108 Reported and signed by: Sahra Smith M.D. CC: Beto Boland MD; Gael BARRAZA Technologist: CARLOS ALBERTO HU [facility] Date/Time/By: 05/16/2019 (1100) : By: [facility] PAGE 2 Signed Report FAX: Beto Urias [phone] [place]: St: [facility] FAX: Gael Larsen [phone] Name: LUBNA LEACH [facility] : 1965 Age/S: 54/M [address] Unit #: [id number] Loc: [place], [place] Phys: Gael Garcia [address] Acct: [id number] Dis Date: Status: ADM IN PHONE #: [phone] Exam Date: 05/16/2019 1046 FAX #: [phone] Reason: Elevated LFT Report Has Been Amended EXAMS: CPT CODE: [id number] US ABDOMEN LTD [address] <Continued> Orig Print D/T: S: 05/16/2019 (1112) PAGE 3 Signed Report- US ABDOMEN [id number] 11:08:00 FAX: Beto Urias [phone] [place]: St: ADM FAX: Leslie Larsen [phone] Name: LUBNA LEACH [facility] : 1965 Age/S: 54/M [address] [facility] Unit #: [id number] Loc: [place], [place] Phys: Gael Garcia [address] Acct: [id number] Dis Date: Status: ADM IN PHONE #: [phone] Exam Date: 05/16/2019 1046 FAX #: [phone] Reason: Elevated LFT EXAMS: CPT CODE: [id number] US ABDOMEN LTD [address] ULTRASOUND:- US ABDOMEN LTD History: Elevated liver [...] Technologist: CARLOS ALBERTO HU Trnscrd Date/Time/By: 05/16/2019 (1385) : By: [facility] PAGE 1 Signed Report FAX: Beto Urias [phone] [place]: St: ADM FAX: Gael Larsen [phone] Name: LUBNA LEACH [facility] : 1965 Age/S: 54/M [address] [facility] Unit #: [id number] Loc: [place], [place] Phys: Gael Garcia [address] Acct: [id number] Dis Date: Status: ADM IN PHONE #: [phone] Exam Date: 05/16/2019 1046 FAX #: [phone] Reason: Elevated LFT EXAMS: CPT CODE: [id number] US ABDOMEN LTD [address] <Continued> Orig Print D/T: S: 05/16/2019 (0035) PAGE 2 Signed [id number] 07:18:00 Test Item Value Reference Range Interpretation Comments AMMONIA (test code = AMM) 9.5 MCMOL/L 11.0-32.0 L No sample received in the lab. Please collect if deemednecessary.Thank you!Lab DRUGS OF ABUSE SCREEN [id number] 06:29:00 Test Item Value Reference Interpretation Comments [...] [place]) concentrati on: 300 ng/mL CBC W/MANUAL [id number] 05:08:00 Test Item Value Reference Range Interpretation [...] MORPHOLOGY (test code NORMAL = PLTMORPH) PROTHROMBIN [id number] 01:10:00 Test Item Value Reference Range Interpretation Comments PROTHROMBIN TIME 12.6 SECONDS 9.9-12.8 N PATIENT (test code = PTP) INTERNATIONAL NORMAL 1.1 0.89-1.14 N THE INR IS TO BE USED RATIO (test code = ONLY FOR MONITORING INR) ORAL ANTICOAGULANTTH ERAPY. THE FOLLOWING A RE SUGGESTED RANGE S FROM [facility]:ANGELA CATION INR VALUEPROPHYLAXI S OF VENOUS THROMBOS IS (ORTHOPEDIC JACQUES TRAVON) 2.0 - 3.0PROP HYLAXIS OF VENOUS THROM BOSIS (OTHER THAN HIG H-RISK SURGERY) 2.0 - 3.0TRE ATMENT OF DEEP VEIN THROMBOSIS OR PULMONARY EMBOL ISM 2.0 - 3.0PREV ENTION OF SYSTEMIC EMB OLISM TISSUE HEART VA LVES 2.0 - 3.0 AC QUILEUTE MYOCARDIAL INFA RCTION (TO PREVENT SYSTEMIC EMBOLI [...] 3 .5 Specimen comments: Clean CatchTHROMBOPLASTIN TIME [id number] 01:10:00 Test Item Value Reference Range Interpretation Comments THROMBOPLASTIN TIME 33.50 SECONDS 25.86-36.07 N [facility] PARTIAL (test code = Therape utic Range - PTT) APTT of 55.8-85 .4 secondscorrelat es with plasma heparin concentration o f 0.2-0.4 u/mL Ne w range effective - Specimen comments: Clean CatchBASIC METABOLIC [id number] 01:09:00 Test Item Value Reference Range Interpretation [...] 8.0 mg/dl 8.0-10.5 N Specimen comments: Clean HealionicsHEPATIC FUNCTION PANEL [id number] 01:09:00 Test Item Value Reference Range Interpretation [...] H code = ALKP) Specimen comments: Clean [id number] 01:09:00 Test Item Value Reference Range Interpretation Comments LIPASE (test code = 560 Units/L 65.0-230.0 H 2+ LIPEM IC SAMPLE. LIP) Specimen comments: Clean CatchB-TYPE NATRIURETIC [id number] 01:09:00 Test Item Value Reference Range Interpretation Comments B-TYPE NATRIURETIC PEPTIDE (test 33 PG/ML 5-100 N code = BNP) Specimen comments: Clean CatchBASIC METABOLIC [id number] 00:59:00 Test Item Value Reference Range Interpretation [...] N Specimen comments: Clean CatchHEPATIC FUNCTION PANEL [id number] 00:59:00 Test Item Value Reference Range Interpretation [...] H code = ALKP) Specimen comments: Clean [id number] 00:59:00 Test Item Value Reference Range Interpretation Comments LIPASE (test code = 560 Units/L 65.0-230.0 H 2+ LIPEM IC SAMPLE. LIP) Specimen comments: Clean CatchB-TYPE NATRIURETIC [id number] 00:59:00 Test Item Value Reference Range Interpretation Comments B-TYPE NATRIURETIC PEPTIDE (test code PG/ML 5-100 = BNP) Specimen comments: Clean CatchBASIC METABOLIC [id number] 00:54:00 Test Item Value Reference Range Interpretation [...] = CA) mg/dl 8.0-10.5 Specimen comments: Clean HealionicsHEPATIC FUNCTION PANEL [id number] 00:54:00 Test Item Value Reference Range Interpretation [...] 50.0-136.0 code = ALKP) Specimen comments: Clean [id number] 00:54:00 Test Item Value Reference Range Interpretation Comments LIPASE (test code = LIP) Units/L 65.0-230.0 Specimen comments: Clean CatchB-TYPE NATRIURETIC [id number] 00:54:00 Test Item Value Reference Range Interpretation Comments B-TYPE NATRIURETIC PEPTIDE (test code PG/ML 5-100 = BNP) Specimen comments: Clean CatchURINALYSIS [id number] 00:52:00 Test Item Value Reference Range Interpretation [...] NONE BACU) Specimen comments: Clean CatchCBC W/MANUAL [id number] 00:46:00 Test Item Value Reference Range Interpretation [...] code = LYMPH) % 20-40 CBC W/MANUAL [id number] 00:46:00 Test Item Value Reference Range Interpretation [...] (test code = LYMPH) % 20-40 URINALYSIS [id number] 00:45:00 Test Item Value Reference Range Interpretation [...] comments: Clean Catch- CT ABD PELVIS W/O [id number] 23:43:00 FAX: Nathan Prince MD [place]: St: REG Name: LUBNA LEACH [facility] : 1965 Age/S: 54/M [address] [facility] Unit: [id number] Loc: [address] Phys: [place] [id number] Acct: [id number] Dis Date: Status: REG ER PHONE #: [phone] Exam Date: 05/15/2019 2316 FAX #: [phone] Reason: ruq pain EXAMS: CPT CODE: [id number] CT ABD PELVIS W/O CONT 13874 CLINICAL HISTORY: Right upper quadrant abdominal pain,shortness [...] Signed Report (CONTINUED) FAX: Nathan Prince MD [place]: St: REG Name: LUBNA LEACH [facility] : 1965 Age/S: 54/M [address] [facility] Unit: [id number] Loc: [address] Phys: [place] [address] Acct: [id number] Dis Date: Status: REG ER PHONE #: [phone] Exam Date: 05/15/2019 2316 FAX #: [phone] Reason: ruq pain EXAMS: CPT CODE: [id number] CT ABD PELVIS W/O CONT 05574 <Continued> This exam was performed according to ourdepartmental dose-optimization program, which includes automated exposure control, adjustment of the mA and/or kV according to patient size and/or use of iterative reconstruction technique at 2343 Reported and signed by: Lennox Purvis M.D. CC: Nathan Prince MD Technologist: STANTON Good Dt/Tm: 05/15/2019 (1604) [email or web address] Orig Print D/T: S: 05/15/2019 (9015 PAGE 2 Signed Report- XR CHEST 2 [id number] 23:29:00 FAX: Nathan Prince MD [place]: St: REG Name: LUBNA LEACH [facility] : 1965 Age/S: 54/M [address] [facility] Unit#: [id number] Loc: [address] Phys: [place] [address] Acct: [id number] Dis Date: Status: REG ER PHONE #: [phone] Exam Date: 05/15/2019 2320 FAX #: [phone] Reason: sob EXAMS: CPT CODE: [id number] XR CHEST 2 V 82436 EXAM: - XR CHEST 2 V HISTORY: Shortness of breath. COMPARISON: April 17, 2018. FINDINGS: PA and lateral view of the chest is provided. Heart size and vascularity are within normal limits. There is no focal consolidation. No effusion, pneumothorax, or acute osseous abnormality. IMPRESSION: No consolidation or pleural effusion. at 0679 Reported and signed by: Choco Wells M.D. CC: Nathan Prince MD Technologist: TOO JIMENEZ Trnscrd Date/Time/By: 05/15/2019 (1599) : By: [email or web address] PAGE 1 Signed Report FAX: Nathan Prince MD [place]: St: REG -- Name: LUBNA LEACH [facility] : 1965 Age/S: 54/M [address] [facility] Unit #: [id number] Loc: [address] Phys: [place] [address] Acct: [id number] Dis Date: Status: REG ER PHONE #: [phone] Exam Date: 05/15/2019 2320 FAX #: [phone] Reason: sob EXAMS: CPT CODE: [id number] XR CHEST 2 V 45286 <Continued> Orig Print D/T: S: 05/15/2019 (6328) PAGE 2 Signed Report
--- NOTE | 2022-03-20 05:19 | ER ---
Nurse's Notes [facility] Name: Huber Augustine Age: 57 yrs Sex: Male : 1965 Arrival Date: 03/20/2022 Time: 01:41 Bed 14 Private MD: Diagnosis: Blister (nonthermal) of foot-ruptured Presentation: 03/20 02:07 Chief complaint: Patient states: I was here recently for leg pain. I had been jb4 discharged home with ibuprofen. I got home and noticed a blister on my right foot had popped. I am homeless and a diabetic and am concerned about the swelling in both my legs and especially the bister. Coronavirus screen: At this time, the client does not indicate any symptoms associated with coronavirus-19. Ebola Screen: No symptoms or risks identified at this time. Initial Sepsis Screen: Does the patient meet any 2 criteria? No. Patient's initial sepsis screen is negative. Does the patient have a suspected source of infection? Yes: Skin breakdown/wound. Risk Assessment: Do you want to hurt yourself or someone else? Patient reports no desire to harm self or others. Onset of symptoms was March 20, 2022. Transition of care: patient was not received from another setting of care. 02:07 Method Of Arrival: EMS: [facility] jb4 02:07 Acuity: ROSALEE 3 jb4 Triage Assessment: 05:01 General: Appears in no apparent distress. comfortable, Behavior is calm, cooperative. kirt Pain: Denies pain. Historical: - Allergies: 02:13 No Known Allergies; jb4 - PMHx: 02:13 diabetes mellitus; neuropathy; jb4 - PSHx: 02:13 Cholecystectomy; Tonsillectomy; jb4 - Immunization history:: Adult Immunizations up to date. - Social history:: Smoking status: Patient reports the use of cigarette tobacco products, smokes one-half pack cigarettes per day, Patient uses alcohol, 6 today. Screenin:00 Abuse screen: Denies threats or abuse. Denies injuries from another. Nutritional kirt screening: pt is homeless, so certainly is nutritionally compromised.. Tuberculosis screening: No symptoms or risk factors identified. Fall Risk None identified. Assessment: 04:53 Reassessment: Patient appears in no apparent distress at this time. The pt was brought kirt to room #14 at 0400. He is pleasant and cooperative. His wound to his right foot is clean and not foul smelling. The pt reports that it is painful, yet he immediately falls back to sleep. 05:13 General: The pt has 2+ pitting edema to bilateral lower legs and hx of same. I cleaned kirt the wound on the right sole of the foot with NS and dressed it with a 4x4 and a small amount of Kerlix. The pt was given some food and something to drink. . Musculoskeletal:. 05:23 Reassessment: The pt has become very vocal and animated in his behavior, much as he was kirt when EMS brought him in. This, after he ate and slept. The pt was informed that he is dc'd out. He became less vocal, but not as quiet as he was earlier. 05:33 Reassessment: The pt became more animated, loud and verbally abusive, but thankfully, kirt not vulgar. The pt was encouraged to follow-up, as he had been instructed the last several times he has come, via EMS, then he began a tirade of "why" he couldn't or wouldn't. Vital Signs: 02:07 BP 104 / 72; Pulse 70; Resp 16; Temp 98.1(TE); Pulse Ox 100% on R/A; Weight 81.65 kg jb4 (R); Height 6 ft. 0 in. (182.88 cm) (R); Pain 10/10; 04:59 BP 110 / 82; Pulse 58; Resp 14; Temp 97.3; Pulse Ox 98% on R/A; Pain 0/10; kirt 05:22 BP 113 / 59; Pulse 81; Resp 16; Temp 97.3; Pulse Ox 98% on R/A; kirt 02:07 Body Mass Index 24.41 (81.65 kg, 182.88 cm) jb4 ED Course: 01:41 Patient arrived in ED. bp1 02:13 Triage completed. jb4 02:13 Arm band placed on right wrist. jb4 03:57 Yevgeniy Mckee MD is Attending Physician. mh7 04:31 Angie Sharpe, RN is Primary Nurse. kirt 05:01 No provider procedures requiring assistance completed. kirt 05:02 Bed in low position. Call light in reach. Side rails up X 1. kirt 05:18 Hosack, Farooq, DPM is Referral Physician. 7 05:36 Patient did not have IV access during this emergency room visit. kirt Administered Medications: No medications were administered Medication: 05:02 VIS not applicable for this client. kirt Outcome: 05:02 Condition: stable kirt 05:18 Discharge ordered by . 7 05:35 Discharged to home kirt 05:35 Discharge instructions given to patient, Instructed on discharge instructions, follow up and referral plans. Demonstrated understanding of instructions, follow-up care. 05:39 Patient left the ED. kirt Signatures: Tani Terrell, RN RN jb4 Xena Mead Maurice, MD MD mh7 Angie Sharpe RN RN kirt
--- NOTE | 2022-03-20 05:19 | EDPHYS ---
Physician Documentation [facility] Name: Huber Augustine Age: 57 yrs Sex: Male : 1965 Arrival Date: 03/20/2022 Time: 01:41 Bed 14 Private MD: ED Physician Yevgeniy Mckee HPI: 03/20 04:59 This 57 yrs old Male presents to ER via EMS with complaints of Foot pain. mh7 04:59 The patient presents with pain, that is acute. The complaints affect the right foot. mh7 Context: The problem was sustained at an unknown site, resulted from an unknown cause, the patient can fully bear weight, the patient is able to ambulate, without difficulty, Problem is a result from a previous injury: No. Onset: The symptoms/episode began/occurred yesterday. Modifying factors: The symptoms are alleviated by nothing. the symptoms are aggravated by weight bearing. Associated signs and symptoms: Pertinent negatives calf tenderness, fever, nausea, numbness, rash, swelling, tingling, vomiting, warmth, weakness. Treatment prior to arrival includes: no previous treatment. Severity of symptoms: At their worst the symptoms were mild, yesterday, in the emergency department the symptoms are unchanged. States that a blister on the bottom of his foot opened up and now he has pain to that area. Denies any injuries.. Historical: - Allergies: 02:13 No Known Allergies; jb4 - PMHx: 02:13 diabetes mellitus; neuropathy; jb4 - PSHx: 02:13 Cholecystectomy; Tonsillectomy; jb4 - Immunization history:: Adult Immunizations up to date. - Social history:: Smoking status: Patient reports the use of cigarette tobacco products, smokes one-half pack cigarettes per day, Patient uses alcohol, 6 today. ROS: 04:59 Constitutional: Negative for fever, chills, and weight loss, Eyes: Negative for injury, mh7 pain, redness, and discharge, ENT: Negative for injury, pain, and discharge, Neck: Negative for injury, pain, and swelling, Cardiovascular: Negative for chest pain, palpitations, and edema, Respiratory: Negative for shortness of breath, cough, wheezing, and pleuritic chest pain, Abdomen/GI: Negative for abdominal pain, nausea, vomiting, diarrhea, and constipation, Back: Negative for injury and pain, : Negative for injury, bleeding, discharge, and swelling, Neuro: Negative for headache, weakness, numbness, tingling, and seizure, Psych: Negative for depression, anxiety, suicide ideation, homicidal ideation, and hallucinations, Allergy/Immunology: Negative for hives, rash, and allergies, Endocrine: Negative for neck swelling, polydipsia, polyuria, polyphagia, and marked weight changes, Hematologic/Lymphatic: Negative for swollen nodes, abnormal bleeding, and unusual bruising. Exam: 04:59 Constitutional: This is a well developed, well nourished patient who is awake, alert, mh7 and in no acute distress. Head/Face: Normocephalic, atraumatic. Eyes: Pupils equal round and reactive to light, extra-ocular motions intact. Lids and lashes normal. Conjunctiva and sclera are non-icteric and not injected. Cornea within normal limits. Periorbital areas with no swelling, redness, or edema. Neck: Trachea midline, no thyromegaly or masses palpated, and no cervical lymphadenopathy. Supple, full range of motion without nuchal rigidity, or vertebral point tenderness. No Meningismus. Chest/axilla: Normal chest wall appearance and motion. Nontender with no deformity. No lesions are appreciated. Cardiovascular: Regular rate and rhythm with a normal S1 and S2. No gallops, murmurs, or rubs. Normal PMI, no JVD. No pulse deficits. Respiratory: Lungs have equal breath sounds bilaterally, clear to auscultation and percussion. No rales, rhonchi or wheezes noted. No increased work of breathing, no retractions or nasal flaring. Abdomen/GI: Soft, non-tender, with normal bowel sounds. No distension or tympany. No guarding or rebound. No evidence of tenderness throughout. Back: No spinal tenderness. No costovertebral tenderness. Full range of motion. Neuro: Awake and alert, GCS 15, oriented to person, place, time, and situation. Cranial nerves II-XII grossly intact. Motor strength 5/5 in all extremities. Sensory grossly intact. Cerebellar exam normal. Normal gait. Psych: Awake, alert, with orientation to person, place and time. Behavior, mood, and affect are within normal limits. 04:59 Musculoskeletal/extremity: Extremities: noted in the right foot, plantar aspect: ruptured blister. 04:59 Skin: ruptured blister on plantar right foot without discharge or swelling. Vital Signs: 02:07 BP 104 / 72; Pulse 70; Resp 16; Temp 98.1(TE); Pulse Ox 100% on R/A; Weight 81.65 kg jb4 (R); Height 6 ft. 0 in. (182.88 cm) (R); Pain 10/10; 04:59 BP 110 / 82; Pulse 58; Resp 14; Temp 97.3; Pulse Ox 98% on R/A; Pain 0/10; kirt 05:22 BP 113 / 59; Pulse 81; Resp 16; Temp 97.3; Pulse Ox 98% on R/A; kirt 02:07 Body Mass Index 24.41 (81.65 kg, 182.88 cm) jb4 MDM: 05:16 Differential diagnosis: contusion, abrasion, ulceration. Data reviewed: vital signs, [facility] nurses notes, old medical records. Data interpreted: Pulse oximetry: on room air is 98 %. Interpretation: normal. Counseling: I had a detailed discussion with the patient and/or guardian regarding: the historical points, exam findings, and any diagnostic results supporting the discharge/admit diagnosis, the need for outpatient follow up, to return to the emergency department if symptoms worsen or persist or if there are any questions or concerns that arise at home. Response to treatment: the patient's symptoms have markedly improved after treatment. 05:18 Patient medically screened. [facility] 03/20 04:51 Order name: Dressing - Wound; Complete Time: 05:13 [facility] Administered Medications: No medications were administered Disposition Summary: 03/20/22 05:18 Discharge Ordered Location: Home [facility] Problem: new [facility] Symptoms: have improved [facility] Condition: Stable [facility] Diagnosis - Blister (nonthermal) of foot - ruptured mh7 Followup: [facility] - With: Private Physician - When: 1 - 2 days - Reason: Worsening of condition, Recheck today's complaints, Continuance of care, Re-evaluation by your physician Followup: [facility] - With: Farooq Flores DPM - When: 1 - 2 days - Reason: Worsening of condition, Recheck today's complaints Discharge Instructions: - Discharge Summary Sheet [facility] - Blisters, Adult 7 - Wound Care, Adult [facility] Forms: - Medication Reconciliation Form 7 - Thank You Letter mh7 - Antibiotic Education 7 - Prescription Opioid Use [facility] Signatures: Tani Terrell RN RN jb4 Yevgeniy Mckee MD MD mh7 Corrections: (The following items were deleted from the chart) 05:03 04:58 This 57 yrs old Male presents to ER via EMS with complaints of Leg Swelling. 7 mh7
[2022-03-20 05:49] VITALS: TEMP 97.3; O2SAT 98
[2022-03-20 05:51] VITALS: BP 113/59
== END 2022-03-20 05:39 | disposition home or self-care (01) ==
LOC: ER 01:38
DX: S90.821A Blister (nonthermal), right foot, initial encounter (principal); X58.XXXA Exposure to other specified factors, initial encounter; Y93.9 Activity, unspecified; Y92.9 Unspecified place or not applicable; Y99.9 Unspecified external cause status; E11.40 Type 2 diabetes mellitus with diabetic neuropathy, unspecified; F17.210 Nicotine dependence, cigarettes, uncomplicated; Z72.89 Other problems related to lifestyle
CPT/HCPCS: 99283

== ENCOUNTER 2022-04-15 10:36 | Emergency (ER) | payer OTHER ==
--- OUTSIDE RECORDS SUMMARY | 2022-04-15 10:40 | XMS REPORT | Continuity of Care Document ---
:1965 Author Organization [facility] t Address [address] [place] [address] Care Team Providers Name Role Phone Dylon Attending Clinician Unavailable SAHRA CORDERO Attending Clinician Unavailable Physician, Primary or Family Admitting Clinician Unavailabl Shanta Wilson Admitting Clinician Unavailable Payers Payer Name Policy Type Policy Number Effective Date Expiration Date S ource Problems This patient has no known problems. Allergies, Adverse Reactions, Alerts Allergy Allergy Status Severity Reaction(s) Onset Inactive Treating Comm ents Source Name Type Date Date Clinician morphine DA Active NC REDNESS/ITCH HC A ING TO AREA 5-26 Maryuri an OF INJECTION 00:00: d 00 [facility] morphine DA Active NC 2018-0 [facility] 8-27 [place] 00:00: d 00 [facility] morphine DA Active NC REDNESS/ITCH 2018-0 HC A ING TO AREA 8-27 Maryuri an OF INJECTION 00:00: d 00 [facility] No Known DA Active U 2018-0 [facility] Allergie 6-13 [place] s 00:00: d 00 [facility] Medications This patient has no known medications. Procedures This patient has no known procedures. Encounters Start End Encounter Admission Attending Care Care Encounter Source Date/Time Date/Time Type Type Clinicians Facility Department ID 2020-09-07 Inpatient HCAPM NELIDA [id number] [facility] 20:04:00 [facility] 2020-01-10 Inpatient HCAPM NELIDA [id number] [facility] 11:42:00 [facility] 2019-11-22 Inpatient HCAPM NELIDA [id number] [facility] 08:41:00 [id number] [facility] 2019-05-12 Inpatient E MHBL MED 7500 MHB L 23:36:00 2022-03-30 2022-03-31 Emergency EM Dylon, HCAPM NELIDA [id number] [facility] 23:17:00 15:23:00 Jethro 58 [facility] 2022-03-30 2022-03-31 Emergency EM Dylon, HCAPM HCAPM [id number] [facility] 23:17:00 15:23:00 Jethro [id number] [facility] 2021-05-19 2021-05-19 Emergency E CONSUELO, MHBL MHBL 7503 MHBL 12:33:00 17:33:00 EMI 2019-11-11 2019-11-11 Emergency E MHSE MHSE 7502 MH 18:37:00 18:37:00 [facility] 2019-10-19 2019-10-19 Emergency E MHSE MHSE 7501 MH 10:27:00 10:27:00 [facility] Results Test Description Test Time Test Comments Results Result Comments Source COVID 19 Asymptomatic IH AG 2022-03-31 13:32:00 Test Item Value Reference Range Interpretation Comme nts COVID 19 Asymptomatic IH AG NEGATIVE Negative Per patrol captain, negative (test code = COVNONPUIAG) re sults should be treated aspresumptive a nd, if inconsistent wi th clinical signs andsymptoms or necessary for patient managem ent, should betested with a n alternative molecular assay . Negative resultsdo not p reclude SARS-CoV-2 infection and s hould not be usedas the sole basis for patient management deci sions. Negative results should be considered in the context of apatient's recent exposures, hist ory, presence of clinicalsigns a nd symptoms consistent with COVID-19. GLUCOSE BEDSIDE [id number] 12:27:00 Test Item Value Reference Range Interpretation Comments GLUCOSE BEDSIDE TESTING (test code 194 mg/dL 70-110 H = GLUBED) TROP-I HIGH [id number] 04:12:00 Test Item Value Reference Range Interpretation Comments TROP-I HIGH 8.1 ng/L 0-54 N CAUTION: Units of the SENSITIVITY (test current te st methodology code = TROPIHS) (ng/L) diffe rfrom the prior test meth odology (ng/mL) by a fa ctor of 1000. 99t h Percentile Uppe r Reference Limit (URL):Fem ales: 34 ng/LMales: 54 ng/L In order to distin guish acute elevations of h igh sensitivitytrop onin from other clinical conditions, the FourthUnive rsal Definition of M yocardial Infarction stressesclinica l assessment and the demonstration o f a rise and/orfall in s erial troponin result s above the URL. Results fr om different metho dologies should not be c omparedto one another as quantitative re sults and URLs may varyby method. Completed by Nursing: NOCSALLY W/AUTO [id number] 03:12:00 Test Item Value Reference Range Interpretation Comments WHITE BLOOD CELL 10.6 K/mm3 3.5-11.0 N (test code = WBC) RED BLOOD CELL (test 4.82 M/mm3 4.70-6.10 N code = RBC) HEMOGLOBIN (test code 15.1 G/DL 12.3-15.9 N = HGB) HEMATOCRIT (test code 44.9 % 35.8-46.7 N = HCT) MEAN CELL VOLUME 93.2 Fl 86.3-98.9 N (test code = MCV) MEAN CELL HGB (test 31.3 pg 28.9-34.4 N code = MCH) MEAN CELL HGB 33.6 G/DL 32.1-34.5 N CONCETRATION (test code = MCHC) RED CELL DISTRIBUTION 13.9 SD 11.5-14.5 N WIDTH (test code = RDW) PLATELET COUNT (test 182 K/mm3 150-450 N code = PLT) MEAN PLATELET VOLUME 11.40 fL 7.0-9.6 H (test code = MPV) NEUTROPHIL % (test 37.2 % 40-76 L code = NT%) IMMATURE GRANULOCYTE 0.9 % 0.0-5.0 N % (test code = IG%) LYMPHOCYTE % (test 44.1 % 20.5-51.1 N code = LY%) MONOCYTE % (test code 14.4 % 1.7-9.3 H = MO%) EOSINOPHIL % (test 2.1 % 0.0-6.0 N code = EO%) BASOPHIL % (test code 1.3 % 0.0-2.0 N = BA%) NUCLEATED RBC % (test 0.0 /100WBC% 0.0-1.0 N code = NRBC%) NEUTROPHIL # (test 3.9 K/mm3 1.8-7.6 N code = NT#) IMMATURE GRANULOCYTE 0.10 x10 3/uL 0.00-0.03 H # (test code = IG#) LYMPHOCYTE # (test 4.7 K/mm3 0.6-3.0 H code = LY#) MONOCYTE # (test code 1.5 K/mm3 0.2-1.5 N = MO#) EOSINOPHIL # (test 0.2 K/mm3 0.0-0.4 N code = EO#) BASOPHIL # (test code 0.1 K/mm3 0.0-0.2 N = BA#) NUCLEATED RBC # (test 0.0 K/mm3 0.00-0.01 N code = NRBC#) MANUAL DIFF REQUIRED NO DIFF/SCN CRITERIA SLIDE R ESTEPHANIEW (test code = MDIFF) CONSISTA NT WITH AUTO DIFFERENTI AL. BASIC METABOLIC [id number] 00:36:00 Test Item Value Reference Range Interpretation Comments SODIUM (test code = NA) 139 mmol/L 134-147 N POTASSIUM (test code = 3.8 mmol/L 3.4-5.0 N K) CHLORIDE (test code = 110 mmol/L 100-108 H CL) CARBON DIOXIDE (test 21 mmol/L 21-32 N code = CO2) ANION GAP (test code = 8.0 GAP calc 4.0-15.0 N GAP) GLUCOSE (test code = 136 MG/DL 70-110 H GLU) BLOOD UREA NITROGEN 13 MG/DL 7-18 N (test code = BUN) GLOMERULAR FILTRATION >=60 max estimate >60 RATE (test code = GFR) estGFR CREATININE (test code = 0.7 MG/DL 0.8-1.3 L CREAT) CALCIUM (test code = CA) 8.7 MG/DL 8.5-10.1 N Completed by Nursing: NOLast Dose Date: 11/05/00Las Dose Time: 0000HEPATIC FUNCTION [id number] 00:36:00 Test Item Value Reference Range Interpretation Comments TOTAL PROTEIN (test code = PROT) 7.1 G/DL 6.4-8.2 N ALBUMIN (test code = ALB) 3.2 G/DL 3.4-5.0 L BILIRUBIN TOTAL (test code = BILT) 1.10 MG/DL 0.2-1.2 N BILIRUBIN DIRECT (test code = 0.70 MG/DL 0.00-0.30 H BILD) BILIRUBIN INDIRECT (test code = 0.40 MG/DL 0.2-1.2 N BILIND) SGOT/AST (test code = AST) 109 Unit/L 15-37 H SGPT/ALT (test code = ALT) 102 Unit/L 12-78 H ALKALINE PHOSPHATASE TOTAL (test 132 Unit/L 50-136 N code = ALKP) Completed by Nursing: NOLast Dose Date: 11/05/00Las Dose Time: TROP-I HIGH [id number] 00:36:00 Test Item Value Reference Range Interpretation Comments TROP-I HIGH 8.0 ng/L 0-54 N CAUTION: Units of the SENSITIVITY (test current te st methodology code = TROPIHS) (ng/L) diffe rfrom the prior test meth odology (ng/mL) by a fa ctor of 1000. 99t h Percentile Uppe r Reference Limit (URL):Fem ales: 34 ng/LMales: 54 ng/L In order to distin guish acute elevations of h igh sensitivitytrop onin from other clinical conditions, the FourthUnive rsal Definition of M yocardial Infarction stressesclinica l assessment and the demonstration o f a rise and/orfall in s erial troponin result s above the URL. Results fr om different metho dologies should not be c omparedto one another as quantitative re sults and URLs may varyby method. Completed by Nursing: NOLast Dose Date: 11/05/00Last Dose Time: 0000 [id number] 00:36:00 Test Item Value Reference Range Interpretation Comments ACETAMINOPHEN (test code = ACET) < 2.0 mcG/ML 10.0-30.0 L Completed by Nursing: NOLast Dose Date: 11/05/00Las Dose Time: 0000ALCOHOL 2022-03-31 00:36:00 Test Item Value Reference Range Interpretation Comments ALCOHOL (test code = ALC) 39 MG/DL 0-10 H Completed by Nursing: NOLast Dose Date: 11/05/00Las Dose Time: SALICYLATE 2022-03-31 00:36:00 Test Item Value Reference Range Interpretation Comments SALICYLATE (test code < 1.7 MG/DL See_Comment L [Auto mated message] = SALVADOR) The system [employer] generated this result transmitted ref erence range: 2.8-20.0 THER. The reference r sonja was not used to interpret this result as normal/abnor mal. UA RFLX MICR CULT IF [id number] 00:29:00 Test Item Value Reference Range Interpretation Comments UA COLOR (test code = YELLOW discript YEL/STRAW COLU) UA APPEARANCE (test code CLEAR discript CLEAR = APPU) UA GLUCOSE DIPSTICK (test NEGATIVE mg/dL NEG code = DGLUU) UA BILIRUBIN DIPSTICK NEGATIVE mg/dL NEG (test code = BILU) UA KETONE DIPSTICK (test NEGATIVE mg/dL NEG code = KETU) UA SPECIFIC GRAVITY (test <=1.005 SG 1.005-1.030 code = SGU) UA BLOOD DIPSTICK (test NEGATIVE mg/DL NEG code = PAUL) UA PH DIPSTICK (test code 6.0 pH UNITS 5.0-7.0 = LAURA) UA PROTEIN DIPSTICK (test NEGATIVE mg/dL NEG code = PROU) UA UROBILINIOGEN DIPSTICK 0.2 mg/dL <2.0 (test code = URO) UA NITRITE DIPSTICK (test NEGATIVE SCREEN NEG code = KARIE) UA LEUKOCYTE ESTERASE NEGATIVE Leuk/mcL NEGATIVE DIPSTICK (test code = LEUU) UA CULTURE NEEDED? (test NO, WBC<10 Criteria Culture CHK code = UACULT) Indication for culture: RiskForSepsis-no oth srcDRUGS OF ABUSE SCREEN UR 2022-03-31 00:29:00 Test Item Value Reference Range Interpretation Comments URN COCAINE (test NEGATIVE See_Comment UNCONFIRME D code = COCAURN) SCcutoff SCREENING RE SULTS SHOULD NOT BE U SED FORNON-MEDICAL PURPOSES. [Automated message] The system which generated this result transmit liz reference range : <300 NG/ML. The reference range was not used to interpret this result as normal/abnormal . URN CANNABINOIDS POSITIVE See_Comment A UNCONFIRMED (test code = SCcutoff SCREENING RESUL TS CANNABURN) SHOULD NOT BE U SED FORNON-MEDICAL PURPOSES. [Automated message] The system which generated this result transmit liz reference range : <50 NG/ML. The reference range was not used to interpret this result as normal/abnormal . URN AMPHETAMINE (test NEGATIVE See_Comment UNCONF IRMED code = AMPHETURN) SCcutoff SCREENING RESULTS SHOULD NOT BE U SED FORNON-MEDICAL PURPOSES. [Automated message] The system which generated this result transmit liz reference range : <1000 NG/ML. Th e reference range was not used to interpret this result as normal/abnormal . URN BARBITURATE (test NEGATIVE See_Comment UNCONF IRMED code = BARBITURN) SCcutoff SCREENING RESULTS SHOULD NOT BE U SED FORNON-MEDICAL PURPOSES. [Automated message] The system which generated this result transmit liz reference range : <200 NG/ML. The reference range was not used to interpret this result as normal/abnormal . URN BENZODIAZEPINE NEGATIVE See_Comment UNCONFIRM ED (test code = SCcutoff SCREENING RESUL TS BENZOURN) SHOULD NOT BE U SED FORNON-MEDICAL PURPOSES. [Automated message] The system which generated this result transmit liz reference range : <200 NG/ML. The reference range was not used to interpret this result as normal/abnormal . URN OPIATES (test NEGATIVE See_Comment UNCONFIRME D code = OPIATURN) SCcutoff SCREENING R ESULTS SHOULD NOT BE U SED FORNON-MEDICAL PURPOSES. [Automated message] The system which generated this result transmit liz reference range : <300 NG/ML. The reference range was not used to interpret this result as normal/abnormal . URN PHENCYCLIDINE NEGATIVE See_Comment UNCONFIRME D (PCP) (test code = SCcutoff SCREENING RESULTS PHENCURN) SHOULD NOT BE U SED FORNON-MEDICAL PURPOSES. [Automated message] The system which generated this result transmit liz reference range : <25 NG/ML. The reference range was not used to interpret this result as normal/abnormal . URN METHADONE (test NEGATIVE See_Comment UNCONFIR MED code = METHAURN) SCcutoff SCREENING R ESULTS SHOULD NOT BE U SED FORNON-MEDICAL PURPOSES. [Automated message] The system which generated this result transmit liz reference range : <300 NG/ML. The reference range was not used to interpret this result as normal/abnormal . Indication for culture: RiskForSepsis-no oth srcCBC W/AUTO [id number] 20:54:00 Test Item Value Reference Range Interpretation [...] (test code NO DIFF/SCN CRITERIA = MDIFF) CBC W/AUTO [id number] 20:54:00 Test Item Value Reference Range Interpretation [...] code NO DIFF/SCN CRITERIA = MDIFF) RBC [id number] 20:54:00 Test Item Value Reference Range Interpretation Comments PLATELET MORPHOLOGY (test code = NORMAL PLTMORPH) CBC W/AUTO [id number] 20:54:00 Test Item Value Reference Range Interpretation [...] NO DIFF/SCN CRITERIA = MDIFF) BASIC METABOLIC [id number] 20:47:00 Test Item Value Reference Range Interpretation [...] CA) 8.5 MG/DL 8.5-10.1 N HEPATIC FUNCTION [id number] 20:47:00 Test Item Value Reference Range Interpretation [...] 189 Unit/L 50-136 H code = ALKP) [id number] 20:47:00 Test Item Value Reference Range Interpretation Comments LIPASE (test code = LIP) 219 Unit/L 114-286 N CBC W/AUTO [id number] 20:34:00 Test Item Value Reference Range Interpretation [...] code = DIFF/SCN CRITERIA MDIFF) BASIC METABOLIC [id number] 12:34:00 Test Item Value Reference Range Interpretation [...] CA) 9.5 MG/DL 8.5-10.1 N HEPATIC FUNCTION [id number] 12:34:00 Test Item Value Reference Range Interpretation [...] 291 Unit/L 50-136 H code = ALKP) [id number] 12:34:00 Test Item Value Reference Range Interpretation Comments LIPASE (test code = LIP) 207 Unit/L 114-286 N BASIC METABOLIC [id number] 12:29:00 Test Item Value Reference Range Interpretation [...] CA) 9.5 MG/DL 8.5-10.1 N HEPATIC FUNCTION [id number] 12:29:00 Test Item Value Reference Range Interpretation [...] TOTAL (test Unit/L 50-136 code = ALKP) [id number] 12:29:00 Test Item Value Reference Range Interpretation Comments LIPASE (test code = LIP) 207 Unit/L 114-286 N CBC W/AUTO [id number] 12:17:00 Test Item Value Reference Range Interpretation [...] DIFF/SCN CRITERIA MDIFF) - CT ABD PELVIS [id number] 11:10:00 Name: LUBNA LEACH [facility] : 1965 Age/S: 54 / M [address] Unit #: [id number] Loc: [place] [address] Phys: Nito Golden MD Acct: [id number] Dis Date: Status: REG ER PHONE #: [phone] Exam Date: 11/22/2019 1059 FAX #: Reason: rlq pain EXAMS: CPT: [id number] CT ABD PELVIS W/CONT 10392 LOCATION: T18 EXAM: CT ABDOMEN AND PELVIS [...] hydroureteronephrosis. at 1110 Reported and signed by: rC Berrios M.D. CC: Nito Golden MD Technologist:Farooq aLng, RT(R)(CT) CTDI: DLP: Trnscb Date/Time: 11/22/2019 (1110) [email or web address] Orig Print D/T: S: 11/22/2019 (1113) PAGE 1 Signed ReportBASIC METABOLIC [id number] 10:40:00 Test Item Value Reference Range Interpretation [...] CA) 9.0 MG/DL 8.5-10.1 N HEPATIC FUNCTION [id number] 10:40:00 Test Item Value Reference Range Interpretation [...] 112 Unit/L 50-136 N code = ALKP) [id number] 10:40:00 Test Item Value Reference Range Interpretation Comments LIPASE (test code = LIP) 106 Unit/L 114-286 L UA RFLX MICR CULT IF [id number] 10:12:00 Test Item Value Reference Range Interpretation [...] URINE: CLEAN CATCHIndication for culture: Dysuria/FrequencyCBC W/AUTO [id number] 09:46:00 Test Item Value Reference Range Interpretation [...] CRITERIA MDIFF) UA RFLX MICR CULT IF [id number] 09:45:00 Test Item Value Reference Range Interpretation [...] URINE: CLEAN CATCHIndication for culture: Dysuria/FrequencyCBC W/AUTO [id number] 23:05:00 Test Item Value Reference Range Interpretation [...] AUTO DIFFERENTIAL. UA RFLX MICR CULT IF [id number] 22:39:00 Test Item Value Reference Range Interpretation [...] CATCHIndication for culture: Dysuria/Frequency- CT ABD PELVIS [id number] 22:30:00 Name: LUBNA LAECH [facility] : 1965 Age/S: 54 / M [address] Unit #: [id number] Loc: [place] [address] Phys: Lino Ordaz MD Acct: [id number] Dis Date: Status: REG ER PHONE #: [phone] Exam Date: 10/14/20192219 FAX #: Reason: abdominal pain EXAMS: CPT: [id number] CT ABD PELVIS W/CONT 36109 EXAM: - CTABD PELVIS W/CONT HISTORY: Abdominal [...] 1 Signed Report (CONTINUED) Name: LUBNA LEACH [facility] : 1965 Age/S: 54 / M [address] [facility] Unit #: [id number] Loc: [place] [address] Phys: Lino Ordaz MD Acct: [id number] Dis Date: Status: REG ER PHONE #: [phone] Exam Date: 10/14/20190 FAX #: Reason: abdominal pain EXAMS: CPT: [id number] CT ABD PELVIS W/CONT 22118 <Continued> at 2230 Reported and signed by: Choco Wells M.D. CC: Lino Ordaz MD; Nuha BARRAZA Technologist:Leeroy Maldonado, RT(R)(CT)(MRI) CTDI: DLP: Trnscb Date/Time: 10/14/2019 (2229) [email or web address] Orig Print D/T: S: 10/14/2019 (2232) PAGE 2 Signed Report UA RFLX MICR CULT IF [id number] 22:21:00 Test Item Value Reference Range Interpretation [...] CLEAN CATCHIndication for culture: Dysuria/Frequency COMPREHENSIVE METABOLIC [id number] 21:35:00 Test Item Value Reference Range Interpretation [...] code = ALKP) - XR CHEST 1 [id number] 21:30:00 Name: LUBNA LEACH [facility] : 1965 Age/S: 54 / M [address] Unit #: [id number] Loc: [place] [address] Phys: Lino Ordaz MD Acct: [id number] Dis Date: Status: REG ER PHONE #: [phone] Exam Date: 10/14/20192112 FAX #: Reason: liver failure EXAMS: CPT: [id number] XR CHEST 1 V 55483 Fluoro Time: DAP (Gy m2): Air Kerma [...] PAGE 1 Signed Report Name: LUBNA LEACH [facility] [place] : 1965 Age/S: 54 / M [address] Unit #: [id number] Loc: [place] [address] Phys: Lino Ordaz MD Acct: [id number] Dis Date: Status: REG ER PHONE #: [phone] Date: 10/14/20192112 FAX #: Reason: liver failure EXAMS: CPT: [id number] XR CHEST 1 V 02655 Fluoro Time: DAP (Gy m2): Air Kerma (mGy): <Continued> Technologist: Farooq Lang, RT(R)(CT) Trnscb Date/Time: 10/14/2019 (2129) [email or web address] Orig Print D/T: S: 10/14/2019 (2133) PAGE 2 Signed ReportCBC W/AUTO [id number] 21:25:00 Test Item Value Reference Range Interpretation [...] code = DIFF/SCN CRITERIA MDIFF) COMPREHENSIVE METABOLIC [id number] 21:22:00 Test Item Value Reference Range Interpretation [...] Unit/L 50-136 code = ALKP) CBC W/AUTO [id number] 13:44:00 Test Item Value Reference Range Interpretation [...] AUTO DIFFERENTIAL. UA RFLX MICR CULT IF [id number] 13:13:00 Test Item Value Reference Range Interpretation [...] URINE: CLEAN CATCHIndication for culture: Dysuria/FrequencyBASIC METABOLIC [id number] 13:12:00 Test Item Value Reference Range Interpretation [...] 8.5-10.1 N UA RFLX MICR CULT IF [id number] 13:12:00 Test Item Value Reference Range Interpretation [...] URINE: CLEAN CATCHIndication for culture: Dysuria/FrequencyCBC W/AUTO [id number] 12:59:00 Test Item Value Reference Range Interpretation [...] DIFF/SCN CRITERIA MDIFF) - CT HEAD/BRAIN W/O [id number] 12:55:00 Name: LUBNA LEACH [facility] : 1965 Age/S: 54 / M [address] Unit #: [id number] Loc: [place] [address] Phys: Nito Golden MD Acct: [id number] Dis Date: Status: REG ER PHONE #: [phone] Exam Date: 08/08/2019 1230 FAX #: Reason: headache EXAMS: CPT: [id number] CT HEAD/BRAIN W/O CONT 24301 Site ID: [id number] CT head TECHNIQUE: CT [...] Armenta, RT(R)(CT) CTDI: DLP: Trnscb Date/Time: 08/08/2019 (9744) [email or web address] Orig Print D/T: S: 08/08/2019 (7274) PAGE 1 Signed ReportTROPONIN I RAPID 2019-07-01 00:13:00 Test Item Value Reference Range Interpretation Comments TROPONIN I RAPID 0.00 ng/mL 0.00-0.08 N - The use o f serial (test code = sampling and te sting TROPIRAP) protocol is a recommended pra ctice- An elevated tro ponin level alone is often not sufficient for diagnosis of my ocardial infarction. HEPATIC FUNCTION [id number] 00:11:00 Test Item Value Reference Range Interpretation [...] code = 27 Unit/L 26-192 N CK) [id number] 00:11:00 Test Item Value Reference Range Interpretation Comments LIPASE (test code = LIP) 230 Unit/L 114-286 N NT PRO-BRAIN NATRIURETIC [id number] 00:11:00 Test Item Value Reference Range Interpretation Comments NT PRO-BRAIN NATRIURETIC PEPTI 137 PG/ML 0-100 H (test code = PROBNP) CHEMISTRY 8 [id number] 00:08:00 Test Item Value Reference Range Interpretation [...] 56-130 N code = GFRBED) CHEMISTRY 8 [id number] 00:08:00 Test Item Value Reference Range Interpretation [...] code = GFRBED) - XR CHEST 1 [id number] 00:03:00 Name: LUBNA LEACH [facility] : 1965 Age/S: 54 / M [address] Unit #: [id number] Loc: [place] [address] Phys: Jethro Rosenthal MD Acct: [id number] Dis Date: Status: REG ER PHONE #: [phone] Exam Date: 06/30/2019 0000 FAX #: Reason: SOB EXAMS: CPT: [id number] XR CHEST 1 V 70932 Fluoro Time: DAP (Gy m2): Air Kerma [...] PAGE 1 Signed Report Name: LUBNA LEACH [facility] [place] : 1965 Age/S: 54 / M [address] [id number] Loc: [place] [address] Phys: Jethro Rosenthal MD Acct: [id number] Dis Date: Status:REG ER PHONE #: [phone] Exam Date: 06/30/2019 0000 FAX #: Reason: SOB EXAMS: CPT: [id number] XR CHEST 1 V 02627 Fluoro Time: DAP (Gy m2): Air Kerma (mGy): <Continued> Technologist: CHILO Melgoza RVS Trnscb Date/Time: 07/01/2019 (0003) [email or web address] Orig Print D/T: S: 07/01/2019 (0007) PAGE 2 Signed ReportC W/O [id number] 23:55:00 Test Item Value Reference Range Interpretation [...] 7.0-9.6 H MPV) - XR CHEST 1 [id number] 11:34:00 Name: LUBNA LEACH [facility] : 1965 Age/S: 54 / M [address] Unit #: [id number] Loc: [place] [address] Phys: Tejas Feliciano MD Acct: [id number] Dis Date: Status: REG ER PHONE #: [phone] Exam Date: 06/26/2019 1105 FAX #: Reason: sore throat, dyspnea EXAMS: CPT: [id number] XR CHEST 1 V 91476 Fluoro Time: DAP (Gy m2): Air Kerma [...] PAGE 1 Signed Report Name: LUBNA LEACH [facility] : 1965 Age/S: 54 / M [address] Unit #: [id number] Loc: [place] [address] Phys: Tejas Feliciano MD Acct: [id number] Dis Date: Status: REG ER PHONE #: [phone] Exam Date: 06/26/2019 1105 FAX #: Reason: sore throat, dyspnea EXAMS: CPT: [id number] XR CHEST 1 V 04269 Fluoro Time: DAP (Gy m2): Air Kerma (mGy): <Continued> Technologist: Refugio Armenta, RT(R)(CT) Trnscb Date/Time: 06/26/2019 (3246) [email or web address] Orig Print D/T: S: 06/26/2019 (0862) PAGE 2 Signed ReportCOMPREHENSIVE METABOLIC [id number] 11:27:00 Test Item Value Reference Range Interpretation [...] 50-136 H TOTAL (test code = ALKP) [id number] 11:27:00 Test Item Value Reference Range Interpretation Comments LIPASE (test code = LIP) 88 Unit/L 114-286 L CBC W/AUTO [id number] 11:09:00 Test Item Value Reference Range Interpretation [...] = NO DIFF/SCN CRITERIA MDIFF) ANTINUCLEAR ANTIBODIES [id number] 02:42:00 Test Item Value Reference Range Interpretation Comments SEAN DIRECT (test code Negative () = ANADIR) Neg ative <1:80 Borderline 1:8 0 Positive >1:80Performed At: [facility] [address] [place], [place] [id number] ivan Womack MD Ph:[phone] ACUTE HEPATITIS [id number] 02:42:00 Test Item Value Reference Range Interpretation Comments AB HEPATITIS A IGM NON REACTIVE NON REACT. Testing d one at (test code = INDEX CLEAR [facility] [facility] HAVMAB) [facility] [address] [place] [address] AB HEPATITIS B <3.1 mIU/mL Immunity>9.9 A Status of SURFACE (test code Immunity = HBSAB) Anti-H Bs Level --- I ncon sistent with Immunity 0.0 - 9.9Consistent w ith Immunity >9.9Performed A t: [facility] [address] [place], [place] [id number] Kyle L MD Ph:[phone] ST PERFORMED AT [facility] [id number] [place], [place] [address] AG HEPATITIS B NON REACTIVE NonReactive Testing done at SURFACE (test code INDEX CLEAR [place] [facility] = HBSAG) [facility] [address] [place] [address] [id number] AB HEPATITIS B NON REACTIVE NON REACT. Testing done at [facility] IGM (test INDEX CLEAR HOOKS RE GIONAL code = HBCMAB) [facility] [address] [place] [address] [id number] AB HEPATITIS C REACTIVE INDEX NON REACT. A Testing don e at (test code = CLEAR HOOKS DAWOOD ONAL HCVAB) [facility] [address] [place] [address] [id number] AB [id number] 02:42:00 Test Item Value Reference Range Interpretation Comments AB <20.0 Units 0.0-20.0 ANTI-MITOCHONDRIAL Ne gative 0.0 - (test code = 20.0 MITOAB) Equi vocal 20.1 - 24.9 Positive >24.9Mitochondr ial (M2) Antibodies are found in 90-96% ofpatien ts with primary biliary cirrhosis.Perfo rmed At: [facility] [id number] ra Ev GOMEZ Ph:[phone] ANTINUCLEAR ANTIBODIES [id number] 16:45:00 Test Item Value Reference Range Interpretation Comments SEAN DIRECT (test code Negative () = ANADIR) Neg ative <1:80 Borderline 1:8 0 Positive >1:80Performed At: Lab[address] [id number] ivan Womack MD Ph:[phone] ACUTE HEPATITIS [id number] 16:45:00 Test Item Value Reference Range Interpretation Comments AB HEPATITIS A IGM NON REACTIVE NON REACT. Testing d one at (test code = INDEX CLEAR HOOKS DAWOOD ONAL HAVMAB) [facility] [address] [place] [address] AB HEPATITIS B <3.1 mIU/mL Immunity>9.9 A Status of SURFACE (test code Immunity = HBSAB) Anti-H Bs Level --- I ncon sistent with Immunity 0.0 - 9.9Consistent w ith Immunity >9.9Performed A t: Lab[address] [id number] Kyle L MD Ph:[phone] ST PERFORMED AT [place] [address] [address] [place], [place] [address] AG HEPATITIS B NON REACTIVE NonReactive Testing done at SURFACE (test code INDEX CLEAR [place]AL = HBSAG) [facility] [address] [place] [address] AB HEPATITIS B NON REACTIVE NON REACT. Testing done at CORE IGM (test INDEX CLEAR HOOKS RE GIONAL code = HBCMAB) [facility] [address] [place] [address] AB HEPATITIS C REACTIVE INDEX NON REACT. A Testing don e at (test code = CLEAR HOOKS DAWOOD ONAL HCVAB) [facility] [address] [place] [address] 539248 AB [id number] 16:45:00 Test Item Value Reference Range Interpretation Comments AB ANTI-MITOCHONDRIAL (test code = Units 0.0-20.0 MITOAB) [id number] 21:51:00 Test Item Value Reference Range Interpretation Comments GLUBED (test code = GLUBED) 168 mg/dL 70-110 H [id number] 15:58:00 Test Item Value Reference Range Interpretation Comments GLUBED (test code = GLUBED) 168 mg/dL 70-110 H [id number] 07:22:00 Test Item Value Reference Range Interpretation Comments GLUBED (test code = GLUBED) 113 mg/dL 70-110 H CBC W/AUTO [id number] 06:46:00 Test Item Value Reference Range Interpretation [...] BA#) 0.1 K/mm3 0.0-0.2 N COMPREHENSIVE METABOLIC [id number] 06:12:00 Test Item Value Reference Range Interpretation [...] 158 Units/L 50.0-136.0 H code = ALKP) [id number] 06:12:00 Test Item Value Reference Range Interpretation Comments MAGNESIUM (test code = MAG) 2.0 mg/dl 1.8-2.4 N [id number] 23:47:00 Test Item Value Reference Range Interpretation Comments GLUBED (test code = GLUBED) 179 mg/dL 70-110 H ANTINUCLEAR ANTIBODIES [id number] 16:47:00 Test Item Value Reference Range Interpretation Comments SEAN DIRECT (test code = ANADIR) NEGATIVE ACUTE HEPATITIS [id number] 16:47:00 Test Item Value Reference Range Interpretation Comments AB HEPATITIS A IGM NON REACTIVE NON REACT. Testing d one at (test code = INDEX CLEAR HOOKS DA[place]OD ONAL HAVMAB) [facility] [address] [place] [address], [place] [address] AB HEPATITIS B mIU/mL Immune >9.9 SURFACE (test code = HBSAB) AG HEPATITIS B NON REACTIVE NonReactive Testing done at SURFACE (test code INDEX CLEAR [place] = HBSAG) [facility] [address] [place] [address], [place] [address] AB HEPATITIS B NON REACTIVE NON REACT. Testing done at CORE IGM (test INDEX CLEAR HOOKS RE GIONAL code = HBCMAB) [facility] [address] [place] [address], [place] [address] AB HEPATITIS C REACTIVE INDEX NON REACT. A Testing don e at (test code = CLEAR HOOKS DAWOOD ONAL HCVAB) [facility] [address] [place] [address]. [place] [address] AB [id number] 16:47:00 Test Item Value Reference Range Interpretation Comments AB ANTI-MITOCHONDRIAL (test code = Units 0.0-20.0 MITOAB) AB HEPATITIS A [id number] 16:41:00 Test Item Value Reference Range Interpretation Comments AB HEPATITIS A IGM (test NON REACTIVE INDEX NON REACT. code = HAVMAB) AG HEPATITIS B [id number] 16:41:00 Test Item Value Reference Range Interpretation Comments AG HEPATITIS B SURFACE NON REACTIVE INDEX NonReactive (test code = HBSAG) AB HEPATITIS B CORE [id number] 16:41:00 Test Item Value Reference Range Interpretation Comments AB HEPATITIS B CORE IGM NON REACTIVE INDEX NON REACT. (test code = HBCMAB) AB HEPATITIS [id number] 16:41:00 Test Item Value Reference Range Interpretation Comments AB HEPATITIS C (test code = REACTIVE INDEX NON REACT. A HCVAB) [id number] 16:40:00 Test Item Value Reference Range Interpretation Comments GLUBED (test code = GLUBED) 167 mg/dL 70-110 H [id number] 13:52:00 Test Item Value Reference Range Interpretation Comments GLUBED (test code = GLUBED) 139 mg/dL 70-110 H VITAMIN [id number] 13:03:00 Test Item Value Reference Range Interpretation Comments VITAMIN B12 (test code = VITB12) 697 pg/mL 193-986 N THYROID STIMULATING [id number] 13:03:00 Test Item Value Reference Range Interpretation Comments THYROID STIMULATING 1.83 IU/ML 0.47-5.01 N Result i s in HORMONE (test code = Interna tional TSH) Units/millilite r [id number] 12:40:00 Test Item Value Reference Range Interpretation Comments HGBA1C% (test code = HGBA1C%) 6.4 %A1C 4.8-6.0 H ESTIMATED AVERAGE GLUCOSE (test 137 MG/DL code = EAG) - US ABDOMEN [id number] 12:20:00 FAX: Beto Urias [phone] Morse: St: [facility] FAX: Leslie Larsen [phone] Name: LUBNA LEACH [facility] : 1965 Age/S: 54/M [address] [facility] Unit #: [id number] Loc: [place], [place] Phys: Gael Garcia [address] Acct: [id number] Dis Date: Status: ADM IN PHONE #: [phone] Exam Date: 05/16/2019 1046 FAX #: [phone] Reason: Elevated LFT Report Has Been Amended EXAMS: CPT CODE: [id number] US ABDOMEN LTD 00424 Addendum - 05/16/2019 SIGNED 05/16/2019 ADDENDUM: [id number] US/USABDLTD Addendum: A typographical air occurred described [...] 1 Signed Report (CONTINUED) FAX: Beto Urias [phone] Morse: St: ADM FAX: Gael Larsen [phone] Name: LUBNA LEACH [facility] : 1965 Age/S: 54/M [address] [facility] Unit #: [id number] Loc: [place], [place] Phys: Gael Garcia [address] Acct: [id number] Dis Date: Status: ADM IN PHONE #: [phone] Exam Date: 05/16/2019 1046 FAX #: [phone] Reason: Elevated LFT Report Has Been Amended EXAMS: CPT CODE: [id number] US ABDOMEN LTD [address]26 <Continued> Impression: No acute abnormality in the right upper quadrant. Liver size slightly enlarged with fatty changes. CT shows slightly nonsmooth margins suggesting the possibility of cirrhosis, as well. No ascites recognized, currently. Location: U19 Electronically Signed by Stan Smith on 05/16/2019 at 1108 Reported and signed by: Sahra Smith M.D. CC: Beto Boland MD; Gael BARRAZA Technologist: CARLOS ALBERTO HU Trnscrd Date/Time/By: 05/16/2019 (8284) : By: [facility] PAGE 2 Signed Report FAX: Beto Urias [phone] Morse: St: ADM FAX: Gael Larsen [phone] Name: LUBNA LEACH [facility] : 1965 Age[facility]S: 54/[facility] Unit #: [id number] Loc: [place], [place] Phys: Gael Garcia [address] Acct: [id number] Dis Date: Status: ADM IN PHONE #: [phone] Exam Date: 05/16/2019 1046 FAX #: [phone] Reason: Elevated LFT Report Has Been Amended EXAMS: CPT CODE: [id number] US ABDOMEN LTD 65356 <Continued> Orig Print D/T: S: 05/16/2019 (1112) PAGE 3 Signed Report- US ABDOMEN [id number] 11:08:00 FAX: Beto Urias [phone] Morse: St: ADM FAX: Leslie Larsen [phone] Name: LUBNA LEACH [facility] : 1965 Age/S: 54/M [address] [facility] Unit #: [id number] Loc: [place], [place] Phys: Gael Garcia [address] Acct: [id number] Dis Date: Status: ADM IN PHONE #: [phone] Exam Date: 05/16/2019 1046 FAX #: [phone] Reason: Elevated LFT EXAMS: CPT CODE: [id number] US ABDOMEN LTD [address] ULTRASOUND:- US ABDOMEN LTD History: Elevated liver [...] 19 at 1108 Reported and signed by: Sahar Smith M.D. CC: Beto Boland MD; Gael BARRAZA Technologist: CARLOS ALBERTO HU [facility] Date/Time/By: 05/16/2019 (2103) : By: [facility] PAGE 1 Signed Report FAX: Beto Urias [phone] Morse: St: [facility] FAX: Gael Larsen [phone] Name: LUBNA LEACH [facility] : 1965 Age/S: 54/M [address] [facility] Unit #: [id number] Loc: [place], [place] Phys: Gael Garcia [address] Acct: [id number] Dis Date: Status: ADM IN PHONE #: [phone] Exam Date: 05/16/2019 1046 FAX #: [phone] Reason: Elevated LFT EXAMS: CPT CODE: [id number] US ABDOMEN LTD 98153 <Continued> Orig Print D/T: S: 05/16/2019 (1812) PAGE 2 Signed [id number] 07:18:00 Test Item Value Reference Range Interpretation Comments AMMONIA (test code = AMM) 9.5 MCMOL/L 11.0-32.0 L No sample received in the lab. Please collect if deemednecessary.Thank you!Lab DRUGS OF ABUSE SCREEN [id number] 06:29:00 Test Item Value Reference Interpretation Comments [...] [place]) concentrati on: 300 ng/mL CBC W/MANUAL [id number] 05:08:00 Test Item Value Reference Range Interpretation [...] MORPHOLOGY (test code NORMAL = PLTMORPH) PROTHROMBIN [id number] 01:10:00 Test Item Value Reference Range Interpretation Comments PROTHROMBIN TIME 12.6 SECONDS 9.9-12.8 N PATIENT (test code = PTP) INTERNATIONAL NORMAL 1.1 0.89-1.14 N THE INR IS TO BE USED RATIO (test code = ONLY FOR MONITORING INR) ORAL ANTICOAGULANTTH ERAPY. THE FOLLOWING A RE SUGGESTED RANGE S FROM [facility] LEGE OF CHEST PHYSICIANS:ANGELA CATION INR [...] 3 .5 Specimen comments: Clean CatchTHROMBOPLASTIN TIME [id number] 01:10:00 Test Item Value Reference Range Interpretation Comments THROMBOPLASTIN TIME 33.50 SECONDS 25.86-36.07 N Mainlan d Lab PARTIAL (test code = Therape utic Range - PTT) APTT of 55.8-85 .4 secondscorrelat es with plasma heparin concentration o f 0.2-0.4 u/mL Ne w range effective - Specimen comments: Clean CatchBASIC METABOLIC [id number] 01:09:00 Test Item Value Reference Range Interpretation [...] N Specimen comments: Clean CatchHEPATIC FUNCTION PANEL [id number] 01:09:00 Test Item Value Reference Range Interpretation [...] H code = ALKP) Specimen comments: Clean [id number] 01:09:00 Test Item Value Reference Range Interpretation Comments LIPASE (test code = 560 Units/L 65.0-230.0 H 2+ LIPEM IC SAMPLE. LIP) Specimen comments: Clean CatchB-TYPE NATRIURETIC [id number] 01:09:00 Test Item Value Reference Range Interpretation Comments B-TYPE NATRIURETIC PEPTIDE (test 33 PG/ML 5-100 N code = BNP) Specimen comments: Auto SecureBASIC METABOLIC [id number] 00:59:00 Test Item Value Reference Range Interpretation [...] CA) 8.0 mg/dl 8.0-10.5 N Specimen comments: Auto SecureHEPATIC FUNCTION PANEL [id number] 00:59:00 Test Item Value Reference Range Interpretation [...] 50.0-136.0 H code = ALKP) Specimen comments: Auto [id number] 00:59:00 Test Item Value Reference Range Interpretation Comments LIPASE (test code = 560 Units/L 65.0-230.0 H 2+ LIPEM IC SAMPLE. LIP) Specimen comments: Auto SecureB-TYPE NATRIURETIC [id number] 00:59:00 Test Item Value Reference Range Interpretation Comments B-TYPE NATRIURETIC PEPTIDE (test code PG/ML 5-100 = BNP) Specimen comments: Clean CatchBASIC METABOLIC [id number] 00:54:00 Test Item Value Reference Range Interpretation [...] = CA) mg/dl 8.0-10.5 Specimen comments: Clean NovomerHEPATIC FUNCTION PANEL [id number] 00:54:00 Test Item Value Reference Range Interpretation [...] 50.0-136.0 code = ALKP) Specimen comments: Clean [id number] 00:54:00 Test Item Value Reference Range Interpretation Comments LIPASE (test code = LIP) Units/L 65.0-230.0 Specimen comments: Clean CatchB-TYPE NATRIURETIC [id number] 00:54:00 Test Item Value Reference Range Interpretation Comments B-TYPE NATRIURETIC PEPTIDE (test code PG/ML 5-100 = BNP) Specimen comments: Clean CatchURINALYSIS [id number] 00:52:00 Test Item Value Reference Range Interpretation [...] NONE BACU) Specimen comments: Clean CatchCBC W/MANUAL [id number] 00:46:00 Test Item Value Reference Range Interpretation [...] code = LYMPH) % 20-40 CBC W/MANUAL [id number] 00:46:00 Test Item Value Reference Range Interpretation [...] (test code = LYMPH) % 20-40 URINALYSIS [id number] 00:45:00 Test Item Value Reference Range Interpretation [...] comments: Clean Catch- CT ABD PELVIS W/O [id number] 23:43:00 FAX: Nathan Prince MD Morse: St: REG Name: LUBNA LEACH [facility] : 1965 Age/S: 54/M [address] [facility] Unit: [id number] Loc: [address] Phys: [place] [address] Acct: [id number] Dis Date: Status: REG ER PHONE #: [phone] Exam Date: 05/15/2019 2316 FAX #: [phone] Reason: ruq pain EXAMS: CPT CODE: [id number] CT ABD PELVIS W/O CONT 66795 CLINICAL HISTORY: Right upper quadrant abdominal pain,shortness [...] Signed Report (CONTINUED) FAX: Nathan Prince MD Morse: St: REG Name: LUBNA LEACH [facility] : 1965 Age/S: 54/M [address] [facility] Unit: [id number] Loc: [address],[place]: [place] [address] Acct: [id number] Dis Date: Status: REG ER PHONE #: [phone] Exam Date: 05/15/2019 2316 FAX #: [phone] Reason: ruq pain EXAMS: CPT CODE: [id number] CT ABD PELVIS W/O CONT 02837 <Continued> This exam was performed according to ourdepartmental dose-optimization program, which includes automated exposure control, adjustment of the mA and/or kV according to patient size and/or use of iterative reconstruction technique at 2153 Reported and signed by: Lennox Purvis M.D. CC: Nathan Prince MD Technologist: STANTON LIZ Trnankitrd Dt/Tm: 05/15/2019 (2507) [email or web address] Orig Print D/T: S: 05/15/2019 (0219 PAGE 2 Signed Report- XR CHEST 2 [id number] 23:29:00 FAX: Nathan Prince MD Morse: St: REG Name: LUBNA LEACH [facility] : 1965 Age/S: 54/M [address] [facility] Unit#: [id number] Loc: E.ERS2 [place], [place]: [place] [address] Acct: [id number] Dis Date: Status: REG ER PHONE #: [phone] Exam Date: 05/15/2019 2320 FAX #: [phone] Reason: sob EXAMS: CPT CODE: [id number] XR CHEST 2 V 95402 EXAM: - XR CHEST 2 V HISTORY: Shortness of breath. COMPARISON: April 17, 2018. FINDINGS: PA and lateral view of the chest is provided. Heart size and vascularity are within normal limits. There is no focal consolidation. No effusion, pneumothorax, or acute osseous abnormality. IMPRESSION: No consolidation or pleural effusion. at 8231 Reported and signed by: Choco Wells M.D. CC: Nathan Prince MD Technologist: TOO JIMENEZ Trnctrd Date/Time/By: 05/15/2019 (9597) : By: [email or web address] PAGE 1 Signed Report FAX: Nathan Prince MD Morse: St: REG -- Name: LUBNA LEACH [facility] : 1965 Age/S: 54/M [address] [facility] Unit #: [id number] Loc: [address] Phys: [place] [address] Acct: [id number] Dis Date: Status: REG ER PHONE #: [phone] Exam Date: 05/15/2019 2320 FAX #: [phone] Reason: sob EXAMS: CPT CODE: [id number] XR CHEST 2 V 34948 <Continued> Orig Print D/T: S: 05/15/2019 (2018) PAGE 2 Signed Report
[2022-04-15 11:25] LABS: Absolute Lymphocytes (CBC) 2.1 K/uL (0.7-4.9); Hematocrit 41.4 % (39.6-49.0); Lymphocytes % 37.3 % (15.3-44.8); MPV 9.8 fL (7.6-11.3); RBC Red Blood Cell Count 4.43 M/uL (4.33-5.43)
[2022-04-15 11:45] LABS: Potassium 4.1 mmol/L (3.5-5.1)
[2022-04-15] MEDS ORDERED: SMZ./TMP. 800/160 MG TABLET ONE (11:56)
[2022-04-15] MEDS ORDERED: DOXYCYCLINE 100 MG CAP PO ONE (11:57)
--- NOTE | 2022-04-15 12:31 | RAD REPORT ---
EXAM DESCRIPTION: US - Extrem Venous W Compress Jose Luis - 04/15/2022 12:07 pm CLINICAL HISTORY: Painand swelling both legs COMPARISON: None. TECHNIQUE: Real-time sonographic evaluation of the bilateral lower extremity common femoral, superfi cial femoral, popliteal and posterior tibial veins was performed. FINDINGS: Normal compressibility, flow augmentation, phasic flow and spontaneous flow are identified in the left and right lower extremity common femoral, superficial femoral, popliteal and posterior t ibial veins. No intraluminal filling defects seen. IMPRESSION: No DVT in either lower extremity.
--- NOTE | 2022-04-15 12:54 | ER ---
Nurse's Notes [facility] Name: Huber Augustine Age: 57 yrs Sex: Male : 1965 Arrival Date: 04/15/2022 Time: 10:41 Bed Treatment Private MD: Diagnosis: Lower Extremity pain and swelling, cellulitis Presentation: 04/15 10:44 Chief complaint: EMS states: feet swelling ab pain in [place], was recently discharged from [facility] , has not been able to fill his meds yet , has peripheral neuropathy. Coronavirus screen: At this time, the client does not indicate any symptoms associated with coronavirus-19. Ebola Screen: Patient negative for fever greater than or equal to 101.5 degrees Fahrenheit, and additional compatible Ebola Virus Disease symptoms Patient denies exposure to infectious person. Patient denies travel to an Ebola-affected area in the 21 days before illness onset. No symptoms or risks identified at this time. Initial Sepsis Screen: Does the patient meet any 2 criteria? No. Patient's initial sepsis screen is negative. Does the patient have a suspected source of infection? No. Patient's initial sepsis screen is negative. Risk Assessment: Do you want to hurt yourself or someone else? Patient reports no desire to harm self or others. 10:44 Method Of Arrival: EMS: [facility] 10:44 Acuity: ROSALEE 3 iw 10:47 Onset of symptoms was April 15, 2022. iw Historical: - Allergies: 10:47 No Known Allergies; iw - PMHx: 10:47 diabetes mellitus; neuropathy; Hypertensive disorder; iw - Immunization history:: Adult Immunizations unknown. - Social history:: Smoking status: unknown. Screenin:16 Abuse screen: Denies threats or abuse. Denies injuries from another. Nutritional iw screening: No deficits noted. Tuberculosis screening: No symptoms or risk factors identified. Fall Risk IV access (20 points). Assessment: 11:15 General: Appears in no apparent distress. Behavior is calm, cooperative. Pain: iw Complains of pain in right foot and left foot. Neuro: Aparicio Agitation-Sedation Scale (RASS): Level of Consciousness is awake, alert, obeys commands, Oriented to person, place, time, situation, Moves all extremities. Cardiovascular: Patient's skin is warm and dry. Respiratory: Respiratory effort is even, unlabored, Respiratory pattern is regular, symmetrical. Derm: Skin is pink, warm \T\ dry. Musculoskeletal: Swelling present in right foot, left foot, right leg and left leg. 13:12 Reassessment: Patient appears in no apparent distress at this time. Patient and/or iw family updated on plan of care and expected duration. Pain level reassessed. Patient is alert, oriented x 3, equal unlabored respirations, skin warm/dry/pink. [facility], person on phone states they can arrange for someone to pick him up. Vital Signs: 11:15 BP 126 / 71; Pulse 73; Resp 16; Temp 98.0; Pulse Ox 100% on R/A; iw ED Course: 10:41 Patient arrived in ED. eb 10:42 Zulema Lozano, RN is Primary Nurse. iw 10:47 Triage completed. iw 10:48 Huber Greco MD is Attending Physician. kdr 10:48 Arm band placed on. iw 11:00 Patient has correct armband on for positive identification. iw 11:16 No provider procedures requiring assistance completed. iw 11:20 Inserted saline lock: 20 gauge in right forearm, using aseptic technique. Blood mb7 collected. 11:21 Chem 7 Sent. mb7 11:21 CBC with Diff Sent. mb7 12:09 US Extremity Venous W Compression Jose Luis In Process Unspecified. EDMS 13:28 IV discontinued, intact, bleeding controlled, No redness/swelling at site. Pressure iw dressing applied. Administered Medications: 12:08 Drug: Bactrim (trimethoprim-sulfamethoxazole) (160 mg-800 mg (DS) 1 tablet Route: PO; iw 12:30 Follow up: Response: No adverse reaction iw 12:08 Drug: Doxycycline 100 mg Route: PO; iw 12:30 Follow up: Response: No adverse reaction iw Medication: 12:00 VIS not applicable for this client. iw Outcome: 12:54 Discharge ordered by . kdr 13:28 Discharged to home ambulatory. iw 13:28 Condition: good 13:28 Discharge instructions given to patient, Instructed on discharge instructions, follow up and referral plans. medication usage, Demonstrated understanding of instructions, follow-up care, medications, Prescriptions given X 1. 13:29 Patient left the ED. iw Signatures: Dispatcher [employer] EDMS Huber Greco MD MD kdr Blake, Zulema, RN RN Ekta Roy [place] [id number]
--- NOTE | 2022-04-15 12:55 | EDPHYS ---
Physician Documentation [facility] Name: Huber Augustine Age: 57 yrs Sex: Male : 1965 Arrival Date: 04/15/2022 Time: 10:41 Bed Treatment Private MD: ED Physician Huber Greco HPI: 04/15 16:45 This 57 yrs old Male presents to ER via EMS with complaints of Feet Swelling. kdr 16:42 [place] has had kdr increased pain and swelling to both lower feet. Patient has a history of peripheral edema and was recently discharged from [facility]. Patient has yet has not been out of for fill his prescriptions. Additionally has a history of peripheral neuropathy. Patient is not acutely ill and does not appear to need emergent intervention. Onset: The symptoms/episode began/occurred yesterday. Severity of symptoms: At their worst the symptoms were mild in the emergency department the symptoms are unchanged. The patient has experienced similar episodes in the past, chronically. The patient has been recently seen by a physician: the patient's primary care provider. Historical: - Allergies: 10:47 No Known Allergies; iw - PMHx: 10:47 diabetes mellitus; neuropathy; Hypertensive disorder; iw - Immunization history:: Adult Immunizations unknown. - Social history:: Smoking status: unknown. ROS: 16:42 Constitutional: Negative for fever, chills, and weight loss, Eyes: Negative for injury, kdr pain, redness, and discharge, Neck: Negative for injury, pain, and swelling, Cardiovascular: Negative for chest pain, palpitations, and edema, Respiratory: Negative for shortness of breath, cough, wheezing, and pleuritic chest pain, Abdomen/GI: Negative for abdominal pain, nausea, vomiting, diarrhea, and constipation, Back: Negative for injury and pain, : Negative for injury, bleeding, discharge, and swelling, MS/Extremity: Negative for injury and deformity, Skin: Negative for injury, rash, and discoloration, Neuro: Negative for headache, weakness, numbness, tingling, and seizure activity. Psych: Negative for depression, anxiety, suicide ideation, homicidal ideation, and hallucinations, Allergy/Immunology: Negative for hives, rash, and allergies, Endocrine: Negative for neck swelling, polydipsia, polyuria, polyphagia, and marked weight changes, Hematologic/Lymphatic: Negative for swollen nodes, abnormal bleeding, and unusual bruising. Exam: 16:42 Constitutional: This is a well developed, well nourished patient who is awake, alert, kdr and in no acute distress. Head/Face: Normocephalic, atraumatic. Eyes: Pupils equal round and reactive to light, extra-ocular motions intact. Lids and lashes normal. Conjunctiva and sclera are non-icteric and not injected. Cornea within normal limits. Periorbital areas with no swelling, redness, or edema. 16:42 Musculoskeletal/extremity: Circulation is intact in all extremities. Pulses: 16:42 Skin: cellulitis, that is minimal, induration, lesion(s), Turgor: Bilateral lower peripheral extremity swelling. Vital Signs: 11:15 BP 126 / 71; Pulse 73; Resp 16; Temp 98.0; Pulse Ox 100% on R/A; iw MDM: 12:54 Patient medically screened. kdr 16:42 Data reviewed: vital signs, nurses notes, lab test result(s), radiologic studies. kdr Counseling: I had a detailed discussion with the patient and/or guardian regarding: the historical points, exam findings, and any diagnostic results supporting the discharge/admit diagnosis, lab results, radiology results, the need for outpatient follow up. 04/15 10:59 Order name: CBC with Diff; Complete Time: 11:57 kdr 04/15 10:59 Order name: Chem 7; Complete Time: 11:57 kdr 04/15 10:59 Order name: US Extremity Venous W Compression Jose Luis; Complete Time: 12:52 kdr 04/15 12:08 Order name: Diet Regular; Complete Time: 12:09 iw Administered Medications: 12:08 Drug: Bactrim (trimethoprim-sulfamethoxazole) (160 mg-800 mg (DS) 1 tablet Route: PO; iw 12:30 Follow up: Response: No adverse reaction iw 12:08 Drug: Doxycycline 100 mg Route: PO; iw 12:30 Follow up: Response: No adverse reaction iw Disposition Summary: 04/15/22 12:54 Discharge Ordered Location: Home kdr Problem: new kdr Symptoms: have improved kdr Condition: Stable kdr Diagnosis - Lower Extremity pain and swelling, cellulitis kdr Followup: kdr - With: Private Physician - When: 2 - 3 days - Reason: If symptoms return, Further diagnostic work-up, Recheck today's complaints, Continuance of care, Re-evaluation by your physician Discharge Instructions: - Discharge Summary Sheet kdr - Cellulitis, Adult, [id number] kdr - Edema, [id number] kdr - Peripheral Edema kdr Forms: - Medication Reconciliation Form kdr - Thank You Letter kdr - Antibiotic Education kdr Prescriptions: - Bactrim DS 800-160 mg Oral Tablet - take 1 tablet by ORAL route every 12 hours for 10 days; 20 tablet; Refills: 0, kdr Product Selection Permitted Signatures: Dispatcher [employer] Huber Reddy MD MD kdr Zulema Lozano RN RN iw
[2022-04-15 14:02] VITALS: BP 126/71; TEMP 98; O2SAT 100
== END 2022-04-15 13:29 | disposition home or self-care (01) ==
LOC: ER 10:36
DX: L03.116 Cellulitis of left lower limb (principal); L03.115 Cellulitis of right lower limb; E11.40 Type 2 diabetes mellitus with diabetic neuropathy, unspecified; I10 Essential (primary) hypertension
CPT/HCPCS: 36415; 80048; 85025; 93970; 99284

== ENCOUNTER 2022-04-17 20:36 | Observation (INO) | payer OTHER ==
--- OUTSIDE RECORDS SUMMARY | 2022-04-17 20:41 | XMS REPORT | Continuity of Care Document ---
:1965 Author Organization [facility] t Address [address] [place] [address] Care Team Providers Name Role Phone Dylon Attending Clinician Unavailable SAHRA CORDERO Attending Clinician Unavailable Physician, Primary or Family Admitting Clinician Unavailabl e Juanito, Shanta Admitting Clinician Unavailable Payers Payer Name Policy Type Policy Number Effective Date Expiration Date S ource Problems This patient has no known problems. Allergies, Adverse Reactions, Alerts Allergy Allergy Status Severity Reaction(s) Onset Inactive Treating Comm ents Source Name Type Date Date Clinician morphine DA Active ID REDNESS/ITCH HC A ING TO AREA 5-26 Maryuri an OF INJECTION 00:00: d 00 [facility] morphine DA Active ID 2018-0 [facility] 8-27 [place] 00:00: d 00 [facility] Center morphine DA Active ID REDNESS/ITCH 2018-0 HC A ING TO AREA 8-27 Maryuri an OF INJECTION 00:00: d 00 [facility] No Known DA Active U 2017- [facility] Allergie 6-13 [place] s 00:00: d 00 [facility] Medications This patient has no known medications. Procedures This patient has no known procedures. Encounters Start End Encounter Admission Attending Care Care Encounter Source Date/Time Date/Time Type Type Clinicians Facility Department ID 2020-09-07 Inpatient HCAPM NELIDA [id number] [facility] 20:04:00 [facility] 2020-01-10 Inpatient HCAPM NELIDA [id number] [facility] 11:42:00 [facility] 2019-11-22 Inpatient HCAPM NELIDA [id number] [facility] 08:41:00 [id number] [facility] 2019-05-12 Inpatient E MHBL MED 7500 MHB L 23:36:00 2022-03-30 2022-03-31 Emergency EM Dylon, HCAPM NELIDA [id number] [facility] 23:17:00 15:23:00 Jethro 58 [facility] 2022-03-30 2022-03-31 Emergency EM Dylon, HCAPM HCAPM [id number] [facility] 23:17:00 15:23:00 Jethro [id number] [facility] 2021-05-19 2021-05-19 Emergency E CONSUELO, MHBL MHBL 7503 MHBL 12:33:00 17:33:00 EMI 2019-11-11 2019-11-11 Emergency E MHSE MHSE 7502 MH 18:37:00 18:37:00 [facility] 2019-10-19 2019-10-19 Emergency E MHSE MHSE 7501 10:27:00 10:27:00 [facility] Results Test Description Test Time Test Comments Results Result Comments Source COVID 19 Asymptomatic IH AG 2022-03-31 13:32:00 Test Item Value Reference Range Interpretation Comme nts COVID 19 Asymptomatic IH AG NEGATIVE Negative Per histologist, 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 GLUCOSE BEDSIDE [id number] 12:27:00 Test Item Value Reference Range Interpretation Comments GLUCOSE BEDSIDE TESTING (test code 194 mg/dL 70-110 H = GLUBED) TROP-I HIGH [id number] 04:12:00 Test Item Value Reference Range Interpretation [...] varyby method. Completed by Nursing: NOCSALLY W/AUTO [id number] 03:12:00 Test Item Value Reference Range Interpretation [...] NT WITH AUTO DIFFERENTI AL. BASIC METABOLIC [id number] 00:36:00 Test Item Value Reference Range Interpretation [...] N Completed by Nursing: NOLast Dose Date: 11/05/00 Dose Time: HEPATIC FUNCTION [id number] 00:36:00 Test Item Value Reference Range Interpretation [...] Dose Date: 11/05/00Las Dose Time: TROP-I HIGH [id number] 00:36:00 Test Item Value Reference Range Interpretation [...] NOLast Dose Date: 11/05/00Last Dose Time: 0000 [id number] 00:36:00 Test Item Value Reference Range Interpretation Comments ACETAMINOPHEN (test code = ACET) < 2.0 mcG/ML 10.0-30.0 L Completed by Nursing: NOLast Dose Date: 11/05/00Las Dose Time: ALCOHOL 2022-03-31 00:36:00 Test Item Value Reference Range Interpretation Comments ALCOHOL (test code = ALC) 39 MG/DL 0-10 H Completed by Nursing: NOLast Dose Date: 11/05/00Las Dose Time: SALICYLATE 2022-03-31 00:36:00 Test Item Value Reference Range Interpretation Comments SALICYLATE (test code < 1.7 MG/DL See_Comment L [Auto mated message] = SALVADOR) The system [id number] generated this result transmitted ref erence range: 2.8-20.0 THER. The reference r sonja was not used to interpret this result as normal/abnor mal. UA RFLX MICR CULT IF [id number] 00:29:00 Test Item Value Reference Range Interpretation [...] Indication for culture: RiskForSepsis-no oth srcCBC W/AUTO [id number] 20:54:00 Test Item Value Reference Range Interpretation [...] NO DIFF/SCN CRITERIA = MDIFF) CBC W/AUTO [id number] 20:54:00 Test Item Value Reference Range Interpretation [...] code NO DIFF/SCN CRITERIA = MDIFF) RBC [id number] 20:54:00 Test Item Value Reference Range Interpretation Comments PLATELET MORPHOLOGY (test code = NORMAL PLTMORPH) CBC W/AUTO [id number] 20:54:00 Test Item Value Reference Range Interpretation [...] NO DIFF/SCN CRITERIA = MDIFF) BASIC METABOLIC [id number] 20:47:00 Test Item Value Reference Range Interpretation [...] CA) 8.5 MG/DL 8.5-10.1 N HEPATIC FUNCTION [id number] 20:47:00 Test Item Value Reference Range Interpretation [...] 189 Unit/L 50-136 H code = ALKP) [id number] 20:47:00 Test Item Value Reference Range Interpretation Comments LIPASE (test code = LIP) 219 Unit/L 114-286 N CBC W/AUTO [id number] 20:34:00 Test Item Value Reference Range Interpretation [...] code = DIFF/SCN CRITERIA MDIFF) BASIC METABOLIC [id number] 12:34:00 Test Item Value Reference Range Interpretation [...] CA) 9.5 MG/DL 8.5-10.1 N HEPATIC FUNCTION [id number] 12:34:00 Test Item Value Reference Range Interpretation [...] 291 Unit/L 50-136 H code = ALKP) [id number] 12:34:00 Test Item Value Reference Range Interpretation Comments LIPASE (test code = LIP) 207 Unit/L 114-286 N BASIC METABOLIC [id number] 12:29:00 Test Item Value Reference Range Interpretation [...] CA) 9.5 MG/DL 8.5-10.1 N HEPATIC FUNCTION [id number] 12:29:00 Test Item Value Reference Range Interpretation [...] TOTAL (test Unit/L 50-136 code = ALKP) [id number] 12:29:00 Test Item Value Reference Range Interpretation Comments LIPASE (test code = LIP) 207 Unit/L 114-286 N CBC W/AUTO [id number] 12:17:00 Test Item Value Reference Range Interpretation [...] DIFF/SCN CRITERIA MDIFF) - CT ABD PELVIS [id number] 11:10:00 Name: LUBNA LEACH [facility] : 1965 Age/S: 54 / M [address] [place] Unit #: [id number] Loc: [place] [address] Phys: Nito Golden MD Acct: [id number] Dis Date: Status: REG ER PHONE #: [phone] Exam Date: 11/22/2019 1051 FAX #: Reason: rlq pain EXAMS: CPT: [id number] CT ABD PELVIS W/CONT 72169 LOCATION: T18 EXAM: CT ABDOMEN AND PELVIS [...] 11/22/2019 (1113) PAGE 1 Signed ReportBASIC METABOLIC [id number] 10:40:00 Test Item Value Reference Range Interpretation [...] CA) 9.0 MG/DL 8.5-10.1 N HEPATIC FUNCTION [id number] 10:40:00 Test Item Value Reference Range Interpretation [...] 112 Unit/L 50-136 N code = ALKP) [id number] 10:40:00 Test Item Value Reference Range Interpretation Comments LIPASE (test code = LIP) 106 Unit/L 114-286 L UA RFLX MICR CULT IF [id number] 10:12:00 Test Item Value Reference Range Interpretation [...] URINE: CLEAN CATCHIndication for culture: Dysuria/FrequencyCBC W/AUTO [id number] 09:46:00 Test Item Value Reference Range Interpretation [...] CRITERIA MDIFF) UA RFLX MICR CULT IF [id number] 09:45:00 Test Item Value Reference Range Interpretation [...] (test code = 7.0 pH UNITS 5.0-7.0 LAUAR) UA PROTEIN DIPSTICK (test TRACE mg/dL NEG A code = PROU) UA UROBILINIOGEN DIPSTICK >=8.0 mg/dL <2.0 (test code = URO) UA NITRITE DIPSTICK (test NEGATIVE SCREEN NEG code = KARIE) UA LEUKOCYTE ESTERASE NEGATIVE Leuk/mcL NEGATIVE DIPSTICK (test code = LEUU) UA CULTURE NEEDED? (test Criteria Culture CHK code = UACULT) SOURCE OF URINE: CLEAN CATCHIndication for culture: Dysuria/FrequencyCBC W/AUTO [id number] 23:05:00 Test Item Value Reference Range Interpretation [...] AUTO DIFFERENTIAL. UA RFLX MICR CULT IF [id number] 22:39:00 Test Item Value Reference Range Interpretation [...] CATCHIndication for culture: Dysuria/Frequency- CT ABD PELVIS [id number] 22:30:00 Name: LUBNA LEACH [facility] : 1965 Age/S: 54 / M [address] Unit #: [id number] Loc: [place] [address] Phys: Lino Ordaz MD Acct: [id number] Dis Date: Status: REG ER PHONE #: [phone] Exam Date: 10/14/20192219 FAX #: Reason: abdominal pain EXAMS: CPT: [id number] CT ABD PELVIS W/CONT 17546 EXAM: - CTABD PELVIS W/CONT HISTORY: Abdominal [...] 1 Signed Report (CONTINUED) Name: LUBNA LEACH [facility] : 1965 Age/S: 54 / M [address] [facility] [place] Unit #: [id number] Loc: [place] [address] Phys: Lino Ordaz MD Acct: [id number] Dis Date: Status: REG ER PHONE #: [phone] Exam Date: 10/14/20190 FAX #: Reason: abdominal pain EXAMS: CPT: [id number] CT ABD PELVIS W/CONT 03806 <Continued> at 2230 Reported and signed by: Choco Wells M.D. CC: Lino Ordaz MD; Nuha BARRAZA Technologist:Leeroy Maldonado, RT(R)(CT)(MRI) CTDI: DLP: Trnscb Date/Time: 10/14/2019 (2229) [email or web address] Orig Print D/T: S: 10/14/2019 (4746) PAGE 2 Signed Report UA RFLX MICR CULT IF [id number] 22:21:00 Test Item Value Reference Range Interpretation [...] CLEAN CATCHIndication for culture: Dysuria/Frequency COMPREHENSIVE METABOLIC [id number] 21:35:00 Test Item Value Reference Range Interpretation [...] code = ALKP) - XR CHEST 1 [id number] 21:30:00 Name: LUBNA LEACH [facility] : 1965 Age/S: 54 / M [address] [place] Unit #: [id number] Loc: [place] [address] Phys: Lino Ordaz MD Acct: [id number] Dis Date: Status: REG ER PHONE #: [phone] Exam Date: 10/14/20192112 FAX #: Reason: liver failure EXAMS: CPT: [id number] XR CHEST 1 V 82302 Fluoro Time: DAP (Gy m2): Air Kerma [...] PAGE 1 Signed Report Name: LUBNA LEACH [facility] [place] : 1965 Age/S: 54 / M [address] [place] Unit #: [id number] Loc: [place] [address] Phys: Lino Ordaz MD Acct: [id number] Dis Date: Status: REG ER PHONE #: [phone] Date: 10/14/20192112 FAX #: Reason: liver failure EXAMS: CPT: [id number] XR CHEST 1 V 45282 Fluoro Time: DAP (Gy m2): Air Kerma (mGy): <Continued> Technologist: Farooq Lang, RT(R)(CT) Trnscb Date/Time: 10/14/2019 (2129) [email or web address] Orig Print D/T: S: 10/14/2019 (2133) PAGE 2 Signed ReportCBC W/AUTO [id number] 21:25:00 Test Item Value Reference Range Interpretation [...] code = DIFF/SCN CRITERIA MDIFF) COMPREHENSIVE METABOLIC [id number] 21:22:00 Test Item Value Reference Range Interpretation [...] Unit/L 50-136 code = ALKP) CBC W/AUTO [id number] 13:44:00 Test Item Value Reference Range Interpretation [...] AUTO DIFFERENTIAL. UA RFLX MICR CULT IF [id number] 13:13:00 Test Item Value Reference Range Interpretation [...] URINE: CLEAN CATCHIndication for culture: Dysuria/FrequencyBASIC METABOLIC [id number] 13:12:00 Test Item Value Reference Range Interpretation [...] 8.5-10.1 N UA RFLX MICR CULT IF [id number] 13:12:00 Test Item Value Reference Range Interpretation [...] URINE: CLEAN CATCHIndication for culture: Dysuria/FrequencyCBC W/AUTO [id number] 12:59:00 Test Item Value Reference Range Interpretation [...] DIFF/SCN CRITERIA MDIFF) - CT HEAD/BRAIN W/O [id number] 12:55:00 Name: LUBNA LEACH [facility] : 1965 Age/S: 54 / M [address] [place] Unit #: [id number] Loc: [place] [address] Phys: Nito Golden MD Acct: [id number] Dis Date: Status: REG ER PHONE #: [phone] Exam Date: 08/08/2019 1230 FAX #: Reason: headache EXAMS: CPT: [id number] CT HEAD/BRAIN W/O CONT 18233 Site ID: [id number] CT head TECHNIQUE: CT [...] Armenta, RT(R)(CT) CTDI: DLP: Trnscb Date/Time: 08/08/2019 (9841) [email or web address] Orig Print D/T: S: 08/08/2019 (5163) PAGE 1 Signed ReportTROPONIN I RAPID 2019-07-01 00:13:00 Test Item Value Reference Range Interpretation Comments TROPONIN I RAPID 0.00 ng/mL 0.00-0.08 N - The use o f serial (test code = sampling and te sting TROPIRAP) protocol is a recommended pra ctice- An elevated tro ponin level alone is often not sufficient for diagnosis of my ocardial infarction. HEPATIC FUNCTION [id number] 00:11:00 Test Item Value Reference Range Interpretation [...] code = 27 Unit/L 26-192 N CK) [id number] 00:11:00 Test Item Value Reference Range Interpretation Comments LIPASE (test code = LIP) 230 Unit/L 114-286 N NT PRO-BRAIN NATRIURETIC [id number] 00:11:00 Test Item Value Reference Range Interpretation Comments NT PRO-BRAIN NATRIURETIC PEPTI 137 PG/ML 0-100 H (test code = PROBNP) CHEMISTRY 8 [id number] 00:08:00 Test Item Value Reference Range Interpretation [...] 56-130 N code = GFRBED) CHEMISTRY 8 [id number] 00:08:00 Test Item Value Reference Range Interpretation [...] code = GFRBED) - XR CHEST 1 [id number] 00:03:00 Name: LUBNA LEACH [facility] : 1965 Age/S: 54 / M [address] [place] Unit #: [id number] Loc: [place] [address] Phys: Jethro Rosenthal MD Acct: [id number] Dis Date: Status: REG ER PHONE #: [phone] Exam Date: 06/30/2019 0000 FAX #: Reason: SOB EXAMS: CPT: [id number] XR CHEST 1 V 10998 Fluoro Time: DAP (Gy m2): Air Kerma [...] PAGE 1 Signed Report Name: LUBNA LEACH [facility] : 1965 Age/S: 54 / M [address] [id number] Loc: [place] [address] Phys: Jethro Rosenthal MD Acct: [id number] Dis Date: Status:REG ER PHONE #: [phone] Exam Date: 06/30/2019 0000 FAX #: Reason: SOB EXAMS: CPT: [id number] XR CHEST 1 V 53945 Fluoro Time: DAP (Gy m2): Air Kerma (mGy): <Continued> Technologist: CHILO Melgoza,RVS Trnscb Date/Time: 07/01/2019 (0003) [email or web address] Orig Print D/T: S: 07/01/2019 (0007) PAGE 2 Signed ReportC W/O [id number] 23:55:00 Test Item Value Reference Range Interpretation [...] 7.0-9.6 H MPV) - XR CHEST 1 [id number] 11:34:00 Name: LUBNA LEACH [facility] : 1965 Age/S: 54 / M [address] [place] Unit #: [id number] Loc: [place] [address] Phys: Tejas Feliciano MD Acct: [id number] Dis Date: Status: REG ER PHONE #: [phone] Exam Date: 06/26/2019 1105 FAX #: Reason: sore throat, dyspnea EXAMS: CPT: [id number] XR CHEST 1 V 93295 Fluoro Time: DAP (Gy m2): Air Kerma [...] PAGE 1 Signed Report Name: LUBNA LEACH [facility] : 1965 Age/S: 54 / M [address] [place] Unit #: [id number] Loc: [place] [address] Phys: Tejas Feliciano MD Acct: [id number] Dis Date: Status: REG ER PHONE #: [phone] Exam Date: 06/26/2019 1105 FAX #: Reason: sore throat, dyspnea EXAMS: CPT: [id number] XR CHEST 1 V 03677 Fluoro Time: DAP (Gy m2): Air Kerma (mGy): <Continued> Technologist: Refugio Armenta, RT(R)(CT) Trnscb Date/Time: 06/26/2019 (1130) [email or web address] Orig Print D/T: S: 06/26/2019 (1170) PAGE 2 Signed ReportCOMPREHENSIVE METABOLIC [id number] 11:27:00 Test Item Value Reference Range Interpretation [...] 50-136 H TOTAL (test code = ALKP) [id number] 11:27:00 Test Item Value Reference Range Interpretation Comments LIPASE (test code = LIP) 88 Unit/L 114-286 L CBC W/AUTO [id number] 11:09:00 Test Item Value Reference Range Interpretation [...] = NO DIFF/SCN CRITERIA MDIFF) ANTINUCLEAR ANTIBODIES [id number] 02:42:00 Test Item Value Reference Range Interpretation Comments SEAN DIRECT (test code Negative () = ANADIR) Neg ative <1:80 Borderline 1:8 0 Positive >1:80Performed At: [facility] [address] [place], [place] [id number] ivan Womack MD Ph:[phone] ACUTE HEPATITIS [id number] 02:42:00 Test Item Value Reference Range Interpretation Comments AB HEPATITIS A IGM NON REACTIVE NON REACT. Testing d one at (test code = INDEX CLEAR HOOKS [place] ONAL HAVMAB) [facility] [address] [place] [address] [id number] AB HEPATITIS B <3.1 mIU/mL Immunity>9.9 A Status of SURFACE (test code Immunity = HBSAB) Anti-H Bs Level --- I ncon sistent with Immunity 0.0 - 9.9Consistent w ith Immunity >9.9Performed A t: [facility] [address] [place], [place] [id number] Kyle L MD Ph:[phone] ST PERFORMED AT [facility] [address] [place], [place] [address] AG HEPATITIS B NON REACTIVE NonReactive Testing done at SURFACE (test code INDEX [facility]AR [place] [facility] = HBSAG) [facility] [address] [place] [address] 220038 AB HEPATITIS B NON REACTIVE NON REACT. Testing done at CORE IGM (test INDEX CLEAR HOOKS RE GIONAL code = HBCMAB) [facility] [address] [place] [address] 729918 AB HEPATITIS C REACTIVE INDEX NON REACT. A Testing don e at (test code = CLEAR HOOKS [place] ONAL HCVAB) [facility] [address] [place] [address] 535068 AB [id number] 02:42:00 Test Item Value Reference Range Interpretation Comments AB <20.0 Units 0.0-20.0 ANTI-MITOCHONDRIAL Ne gative 0.0 - (test code = 20.0 MITOAB) Equi vocal 20.1 - 24.9 Positive >24.9Mitochondr ial (M2) Antibodies are found in 90-96% ofpatien ts with primary biliary cirrhosis.Perfo rmed At: [facility] [id number] ra Ev GOMEZ Ph:[phone] ANTINUCLEAR ANTIBODIES [id number] 16:45:00 Test Item Value Reference Range Interpretation Comments SEAN DIRECT (test code Negative () = ANADIR) Neg ative <1:80 Borderline 1:8 0 Positive >1:80Performed At: [facility] [address] [id number] ivan Womack MD Ph:[phone] ACUTE HEPATITIS [id number] 16:45:00 Test Item Value Reference Range Interpretation Comments AB HEPATITIS A IGM NON REACTIVE NON REACT. Testing d one at (test code = INDEX CLEAR [place]OO[place] ONAL HAVMAB) [facility] [address] [place] [address] AB HEPATITIS B <3.1 mIU/mL Immunity>9.9 A Status of SURFACE (test code Immunity = HBSAB) Anti-H Bs Level --- I ncon sistent with Immunity 0.0 - 9.9Consistent w ith Immunity >9.9Performed A t: [facility] [id number] Kyle L MD Ph:[phone] ST PERFORMED AT [facility] [address] [place] [address] AG HEPATITIS B NON REACTIVE NonReactive Testing done at SURFACE (test code INDEX [facility] [place] [facility] = HBSAG) [facility] [address] [place] [address] AB HEPATITIS B NON REACTIVE NON REACT. Testing done at CORE IGM (test INDEX CLEAR HOOKS RE GIONAL code = HBCMAB) [facility] [address] [place] [address] AB HEPATITIS C REACTIVE INDEX NON REACT. A Testing don e at (test code = CLEAR HOOKS [place] ONAL HCVAB) [facility] [address] [place] [address] AB [id number] 16:45:00 Test Item Value Reference Range Interpretation Comments AB ANTI-MITOCHONDRIAL (test code = Units 0.0-20.0 MITOAB) [id number] 21:51:00 Test Item Value Reference Range Interpretation Comments GLUBED (test code = GLUBED) 168 mg/dL 70-110 H [id number] 15:58:00 Test Item Value Reference Range Interpretation Comments GLUBED (test code = GLUBED) 168 mg/dL 70-110 H [id number] 07:22:00 Test Item Value Reference Range Interpretation Comments GLUBED (test code = GLUBED) 113 mg/dL 70-110 H CBC W/AUTO [id number] 06:46:00 Test Item Value Reference Range Interpretation [...] BA#) 0.1 K/mm3 0.0-0.2 N COMPREHENSIVE METABOLIC [id number] 06:12:00 Test Item Value Reference Range Interpretation [...] 158 Units/L 50.0-136.0 H code = ALKP) [id number] 06:12:00 Test Item Value Reference Range Interpretation Comments MAGNESIUM (test code = MAG) 2.0 mg/dl 1.8-2.4 N [id number] 23:47:00 Test Item Value Reference Range Interpretation Comments GLUBED (test code = GLUBED) 179 mg/dL 70-110 H ANTINUCLEAR ANTIBODIES [id number] 16:47:00 Test Item Value Reference Range Interpretation Comments SEAN DIRECT (test code = ANADIR) NEGATIVE ACUTE HEPATITIS [id number] 16:47:00 Test Item Value Reference Range Interpretation Comments AB HEPATITIS A IGM NON REACTIVE NON REACT. Testing d one at (test code = INDEX CLEAR HOOKS [place] ONAL HAVMAB) [facility] [address] [place] [address]. [place] [address] AB HEPATITIS B mIU/mL Immune >9.9 SURFACE (test code = HBSAB) AG HEPATITIS B NON REACTIVE NonReactive Testing done at SURFACE (test code INDEX CLEAR [place] [facility] = HBSAG) [facility] [address] [place] [address], [place] [address] AB HEPATITIS B NON REACTIVE NON REACT. Testing done at CORE IGM (test INDEX CLEAR HOOKS RE GIONAL code = HBCMAB) [facility] [address] [place] [address], [place] [address] AB HEPATITIS C REACTIVE INDEX NON REACT. A Testing don e at (test code = CLEAR HOOKS [place] ONAL HCVAB) [facility] [address] [place] [address]. [place] [address] AB [id number] 16:47:00 Test Item Value Reference Range Interpretation Comments AB ANTI-MITOCHONDRIAL (test code = Units 0.0-20.0 MITOAB) AB HEPATITIS A [id number] 16:41:00 Test Item Value Reference Range Interpretation Comments AB HEPATITIS A IGM (test NON REACTIVE INDEX NON REACT. code = HAVMAB) AG HEPATITIS B [id number] 16:41:00 Test Item Value Reference Range Interpretation Comments AG HEPATITIS B SURFACE NON REACTIVE INDEX NonReactive (test code = HBSAG) AB HEPATITIS B CORE [id number] 16:41:00 Test Item Value Reference Range Interpretation Comments AB HEPATITIS B CORE IGM NON REACTIVE INDEX NON REACT. (test code = HBCMAB) AB HEPATITIS [id number] 16:41:00 Test Item Value Reference Range Interpretation Comments AB HEPATITIS C (test code = REACTIVE INDEX NON REACT. A HCVAB) [id number] 16:40:00 Test Item Value Reference Range Interpretation Comments GLUBED (test code = GLUBED) 167 mg/dL 70-110 H [id number] 13:52:00 Test Item Value Reference Range Interpretation Comments GLUBED (test code = GLUBED) 139 mg/dL 70-110 H VITAMIN [id number] 13:03:00 Test Item Value Reference Range Interpretation Comments VITAMIN B12 (test code = VITB12) 697 pg/mL 193-986 N THYROID STIMULATING [id number] 13:03:00 Test Item Value Reference Range Interpretation Comments THYROID STIMULATING 1.83 IU/ML 0.47-5.01 N Result i s in HORMONE (test code = Interna tional TSH) Units/millilite r [id number] 12:40:00 Test Item Value Reference Range Interpretation Comments HGBA1C% (test code = HGBA1C%) 6.4 %A1C 4.8-6.0 H ESTIMATED AVERAGE GLUCOSE (test 137 MG/DL code = EAG) - US ABDOMEN [id number] 12:20:00 FAX: eBto Urias [phone] [place]: St: [facility] FAX: Leslie Larsen [phone] Name: LUBNA LEACH [facility] : 1965 Age/S: 54/M [address] [facility] Unit #: [id number] Loc: [place], [place] Phys: Gael Garcia [address] Acct: [id number] Dis Date: Status: ADM IN PHONE #: [phone] Exam Date: 05/16/2019 1046 FAX #: [phone] Reason: Elevated LFT Report Has Been Amended EXAMS: CPT CODE: [id number] US ABDOMEN LTD [id number] Addendum - 05/16/2019 SIGNED 05/16/2019 ADDENDUM: [id number] US/USABDLTD Addendum: A typographical air occurred described [...] B-mode/Vegas scale imaging with color Doppler perfu zachray imaging and spectral analysis was performed. Normal [...] 1 Signed Report (CONTINUED) FAX: Beto Urias [phone] [place]: St: ADM FAX: Gael Larsen [phone] Name: LUBNA LEACH [facility] : 1965 Age/S: 54/M [address] [facility] Unit [facility]: [id number] Loc: [place], [place] Phys: Gael Garcia [address] Acct: [id number] Dis Date: Status: ADM IN PHONE #: [phone] Exam Date: 05/16/2019 1046 FAX #: [phone] Reason: Elevated LFT Report Has Been Amended EXAMS: CPT CODE: [id number] US ABDOMEN LTD 90269 <Continued> Impression: No acute abnormality in the [...] HU Trnscrd Date/Time/By: 05/16/2019 (1108) : By: [facility] PAGE 2 Signed Report FAX: Beto Urias [phone] [place]: St: ADM FAX: Gael Larsen [phone] Name: LUBNA [facility] : 1965 Age/S: 54/[facility] Unit #: [id number] Loc: [place], [place] Phys: Gael Garcia [address] Acct: [id number] Dis Date: Status: ADM IN PHONE #: [phone] Exam Date: 05/16/2019 1046 FAX #: [phone] Reason: Elevated LFT Report Has Been Amended EXAMS: CPT CODE: [id number] US ABDOMEN LTD 87968 <Continued> Orig Print D/T: S: 05/16/2019 (1112) PAGE 3 Signed Report- US ABDOMEN [id number] 11:08:00 FAX: Beto Urias [phone] [place]: St: ADM FAX: Leslie Lrasen [phone] Name: LUBNA [facility] : 1965 Age/S: 54/M [address] [place] [address] Unit #: [id number] Loc: [place], [place] Phys: Gael Garcia [address] Acct: [id number] Dis Date: Status: ADM IN PHONE #: [phone] Exam Date: 05/16/2019 1046 FAX #: [phone] Reason: Elevated LFT EXAMS: CPT CODE: [id number] US ABDOMEN LTD 52064 ULTRASOUND:- US ABDOMEN LTD History: Elevated liver [...] as well. No ascites recognized, currently. Location: 19 at 1108 Reported and signed by: Sahra Smith M.D. CC: Beto Boland MD; Gael BARRAZA Technologist: CARLOS ALBERTO HU Trnndrd Date/Time/By: 05/16/2019 (3504) : By: [facility] PAGE 1 Signed Report FAX: Beto Urias [phone] [place]: St: [facility] FAX: Gael Larsen [phone] Name: LUBNA [facility] : 1965 Age/S: 54/M [address] [facility] Unit #: [id number] Loc: [place], [place] Phys: Gael Garcia [address] Acct: [id number] Dis Date: Status: ADM IN PHONE #: [phone] Exam Date: 05/16/2019 1046 FAX #: [phone] Reason: Elevated LFT EXAMS: CPT CODE: [id number] US ABDOMEN LTD 78138 <Continued> Orig Print D/T: S: 05/16/2019 (9752) PAGE 2 Signed [id number] 07:18:00 Test Item Value Reference Range Interpretation Comments AMMONIA (test code = AMM) 9.5 MCMOL/L 11.0-32.0 L No sample received in the lab. Please collect if deemednecessary.Thank you!Lab DRUGS OF ABUSE SCREEN [id number] 06:29:00 Test Item Value Reference Interpretation Comments [...] [place]) concentrati on: 300 ng/mL CBC W/MANUAL [id number] 05:08:00 Test Item Value Reference Range Interpretation [...] MORPHOLOGY (test code NORMAL = PLTMORPH) PROTHROMBIN [id number] 01:10:00 Test Item Value Reference Range Interpretation Comments PROTHROMBIN TIME 12.6 SECONDS 9.9-12.8 N PATIENT (test code = PTP) INTERNATIONAL NORMAL 1.1 0.89-1.14 N THE INR IS TO BE USED RATIO (test code = ONLY FOR MONITORING INR) ORAL ANTICOAGULANTTH ERAPY. THE FOLLOWING A RE SUGGESTED RANGE S FROM [facility] LEGE OF CHEST PHYSICIANS:ANGELA CATION [...] 3 .5 Specimen comments: Clean CatchTHROMBOPLASTIN TIME [id number] 01:10:00 Test Item Value Reference Range Interpretation Comments THROMBOPLASTIN TIME 33.50 SECONDS 25.86-36.07 N [place] d Lab PARTIAL (test code = Therape utic Range - PTT) APTT of 55.8-85 .4 secondscorrelat es with plasma heparin concentration o f 0.2-0.4 u/mL Ne w range effective - Specimen comments: Clean CatchBASIC METABOLIC [id number] 01:09:00 Test Item Value Reference Range Interpretation [...] N Specimen comments: Clean CatchHEPATIC FUNCTION PANEL [id number] 01:09:00 Test Item Value Reference Range Interpretation [...] H code = ALKP) Specimen comments: Clean [id number] 01:09:00 Test Item Value Reference Range Interpretation Comments LIPASE (test code = 560 Units/L 65.0-230.0 H 2+ LIPEM IC SAMPLE. LIP) Specimen comments: Clean CatchB-TYPE NATRIURETIC [id number] 01:09:00 Test Item Value Reference Range Interpretation Comments B-TYPE NATRIURETIC PEPTIDE (test 33 PG/ML 5-100 N code = BNP) Specimen comments: Clean CatchBASIC METABOLIC [id number] 00:59:00 Test Item Value Reference Range Interpretation [...] CA) 8.0 mg/dl 8.0-10.5 N Specimen comments: AGNITiOHEPATIC FUNCTION PANEL [id number] 00:59:00 Test Item Value Reference Range Interpretation [...] 50.0-136.0 H code = ALKP) Specimen comments: [id number] 00:59:00 Test Item Value Reference Range Interpretation Comments LIPASE (test code = 560 Units/L 65.0-230.0 H 2+ LIPEM IC SAMPLE. LIP) Specimen comments: AGNITiOB-TYPE NATRIURETIC [id number] 00:59:00 Test Item Value Reference Range Interpretation Comments B-TYPE NATRIURETIC PEPTIDE (test code PG/ML 5-100 = BNP) Specimen comments: Clean CatchBASIC METABOLIC [id number] 00:54:00 Test Item Value Reference Range Interpretation [...] 8.0-10.5 Specimen comments: Clean CatchHEPATIC FUNCTION PANEL [id number] 00:54:00 Test Item Value Reference Range Interpretation [...] 50.0-136.0 code = ALKP) Specimen comments: Clean [id number] 00:54:00 Test Item Value Reference Range Interpretation Comments LIPASE (test code = LIP) Units/L 65.0-230.0 Specimen comments: Clean CatchB-TYPE NATRIURETIC [id number] 00:54:00 Test Item Value Reference Range Interpretation Comments B-TYPE NATRIURETIC PEPTIDE (test code PG/ML 5-100 = BNP) Specimen comments: Clean CatchURINALYSIS [id number] 00:52:00 Test Item Value Reference Range Interpretation [...] NONE BACU) Specimen comments: Clean CatchCBC W/MANUAL [id number] 00:46:00 Test Item Value Reference Range Interpretation [...] code = LYMPH) % 20-40 CBC W/MANUAL [id number] 00:46:00 Test Item Value Reference Range Interpretation [...] (test code = LYMPH) % 20-40 URINALYSIS [id number] 00:45:00 Test Item Value Reference Range Interpretation [...] comments: Clean Catch- CT ABD PELVIS W/O [id number] 23:43:00 FAX: Nathan Prince MD [place]: St: REG Name: LUBNA [facility] : 1965 Age/S: 54/M [address] [facility] Unit: [id number] Loc: [address] Phys: [place] [address] Acct: [id number] Dis Date: Status: REG ER PHONE #: [phone] Exam Date: 05/15/2019 2316 FAX #: [phone] Reason: ruq pain EXAMS: CPT CODE: [id number] CT ABD PELVIS W/O CONT 56201 CLINICAL HISTORY: Right upper quadrant abdominal pain,shortness [...] Signed Report (CONTINUED) FAX: Nathan Prince MD [place]: St: REG Name: LUBNA [facility] : 1965 Age/S: 54/M [address] [facility] Unit: [id number] Loc: [place], [place]: [place] [address] Acct: [id number] Dis Date: Status: REG ER PHONE #: [phone] Exam Date: 05/15/2019 2316 FAX #: [phone] Reason: ruq pain EXAMS: CPT CODE: [id number] CT ABD PELVIS W/O CONT 07481 <Continued> This exam was performed according to ourdepartmental dose-optimization program, which includes automated exposure control, adjustment of the mA and/or kV according to patient size and/or use of iterative reconstruction technique at 7073 Reported and signed by: Lennox Purvis M.D. CC: Nathan Prince MD Technologist: STANTON LIZ Trnscrd Dt/Tm: 05/15/2019 (8055) [email or web address] Orig Print D/T: S: 05/15/2019 (9612 PAGE 2 Signed Report- XR CHEST 2 [id number] 23:29:00 FAX: Nathan Prince MD [place]: St: REG Name: LUBNA [facility] : 1965 Age/S: 54/M [address] [facility] Unit#: [id number] Loc: [place], [place] Phys: [place] [address] Acct: [id number] Dis Date: Status: REG ER PHONE #: [phone] Exam Date: 05/15/20190 FAX #: [phone] Reason: sob EXAMS: CPT CODE: [id number] XR CHEST 2 V 95430 EXAM: - XR CHEST 2 V HISTORY: Shortness of breath. COMPARISON: April 17, 2018. FINDINGS: PA and lateral view of the chest is provided. Heart size and vascularity are within normal limits. There is no focal consolidation. No effusion, pneumothorax, or acute osseous abnormality. IMPRESSION: No consolidation or pleural effusion. at 1828 Reported and signed by: Choco Wells M.D. CC: Nathan Prince MD Technologist: TOO JIMENEZ Trnndrd Date/Time/By: 05/15/2019 (4445) : By: [email or web address] PAGE 1 Signed Report FAX: Nathan Prince MD [place]: St: REG -- Name: LUBNA [facility] : 1965 Age/S: 54/M [address] [facility] Unit #: [id number] Loc: [address] Phys: [place] [address] Acct: [id number] Dis Date: Status: REG ER PHONE #: [phone] Exam Date: 05/15/2019 2320 FAX #: [phone] Reason: sob EXAMS: CPT CODE: [id number] XR CHEST 2 V 93617 <Continued> Orig Print D/T: S: 05/15/2019 (7708) PAGE 2 Signed Report
--- NOTE | 2022-04-17 22:02 | RAD REPORT ---
EXAM DESCRIPTION: US - Extrem Venous W Compress Jose Luis - 04/17/2022 9:54 pm CLINICAL HISTORY: Pain Bilateral leg edema and swelling. COMPARISON: Extrem Venous W Compress Jose Luis dated 04/15/2022 TECHNIQUE: Real-time sonographic interrogation of the left and right lower extremity deep venous sys tems was performed. FINDINGS: Normal compressibility, flow augmentation, phasic flow and spontaneous flow is identified in both the left and right lower extremity deep venous systems. IMPRESSION: No sonographic evidence of left or right lower extremity deep venous thrombosis.
[2022-04-18 00:50] LABS: Absolute Lymphocytes (CBC) 2.4 K/uL (0.7-4.9); Hematocrit 41.2 % (39.6-49.0); Lymphocytes % 39.7 % (15.3-44.8); MPV 9.8 fL (7.6-11.3); RBC Red Blood Cell Count 4.43 M/uL (4.33-5.43)
[2022-04-18 00:51] LABS: Protime INR 1.06
[2022-04-18] MEDS ORDERED: FUROSEMIDE 20 MG/ 2ML VIAL ONE (00:56)
[2022-04-18] MEDS ORDERED: FENTANYL CITR 100 MCG/2 ML ONE (00:57)
[2022-04-18 01:06] LABS: Albumin 2.7 g/dL (3.4-5.0); Bilirubin Direct 0.4 mg/dL (0-0.2); Bilirubin Total 0.5 mg/dL (0.2-1.0); Magnesium 2.1 mg/dL (1.8-2.4); Potassium 3.9 mmol/L (3.5-5.1); Protein, Total 6.4 g/dL (6.4-8.2); Troponin High Sensitivity 7.9 pg/mL (<58.9)
--- NOTE | 2022-04-18 03:03 | ER ---
Nurse's Notes [facility] Name: Huber Augustine Age: 57 yrs Sex: Male : 1965 Arrival Date: 04/17/2022 Time: 20:39 Bed 28 Private MD: Diagnosis: Dyspnea;Edema, unspecified;Tobacco abuse counseling;Tobacco use;Systolic (congestive) heart failure;Unspecified cirrhosis of liver Presentation: 04/17 22:04 Chief complaint: Patient states: C/o BLE swelling, pain and open blister to right foot. mc4 Was seen 2 days ago and told to return if not better. Coronavirus screen: Vaccine status: Patient reports receiving the 1st dose of the Covid vaccine. Ebola Screen: Patient denies exposure to infectious person. Patient denies travel to an Ebola-affected area in the 21 days before illness onset. Initial Sepsis Screen: Does the patient meet any 2 criteria? No. Patient's initial sepsis screen is negative. Risk Assessment: Do you want to hurt yourself or someone else? Patient reports no desire to harm self or others. Onset of symptoms was April 05, 2022. Care prior to arrival: Injury dressed. Medication(s) given: Gabapentin 300mg PO x2. 22:04 Method Of Arrival: Ambulatory [facility] 22:04 Acuity: ROSALEE 4 [facility] 04/18 00:00 Initial Sepsis Screen: Does the patient have a suspected source of infection? No. vc1 Patient's initial sepsis screen is negative. Triage Assessment: 04/17 22:08 General: Appears unkempt, well developed, well nourished, Behavior is cooperative, mc4 anxious, listless, Reports chills for >3 days, Denies fever, fatigue, chills. Pain: Complains of pain in right leg and left leg Pain does not radiate. Pain currently is 5 out of 10 on a pain scale. Quality of pain is described as pressure, sharp, shooting, squeezing, Pain began years ago. Is intermittent, Alleviated by medications, Aggravated by increased activity, weight bearing, Noted to be restless, Current management is with Gabapentin, Trazadone. EENT: No deficits noted. Neuro: Reports numbness in right leg and left leg. Cardiovascular: Edema pitting to left midcalf, left ankle, left foot, left toes, right midcalf, right ankle, right foot and right toes. Respiratory: No deficits noted. GI: No deficits noted. : No deficits noted. Derm: BLE skin tight and painful to touch. Open blister to inner aspect of right foot near great toe. Musculoskeletal: Reports weakness in right leg and left leg numbness in right leg and left leg pain in right leg and left leg since "on and off for years". "neuropathy. . Pain is 5 out of 10 on a pain scale. Historical: - Allergies: 22:08 No Known Allergies; mc4 - PMHx: 22:08 diabetes mellitus; Hypertensive disorder; neuropathy; Anxiety; Bipolar disorder; mc4 - PSHx: 22:08 Cholecystectomy; Tonsillectomy; mc4 - Immunization history:: Adult Immunizations up to date. - Social history:: Smoking status: Patient reports the use of cigarette tobacco products, Patient uses alcohol, on a daily basis. 12 pack per week. Patient/guardian denies using street drugs, IV drugs, [place] No barriers to communication noted, The patient speaks fluent Nauruan, The patient is unemployed. - Code Status:: Full code. - Coronavirus screen:: The patient has NOT traveled to [place] in the past 14 days. Proceed with normal triage process as indicated. The patient has NOT had contact with known/suspected case of Coronavirus? Proceed with normal triage procedures. - Ebola Screening: : Patient denies exposure to infectious person Patient denies travel to an Ebola-affected area in the 21 days before illness onset. Screenin:45 Abuse screen: Denies threats or abuse. Nutritional screening: No deficits noted. bb Tuberculosis screening: No symptoms or risk factors identified. Fall Risk None identified. Assessment: 23:45 Reassessment: No changes from previously documented assessment. Patient is alert, bb oriented x 3, equal unlabored respirations, skin warm/dry/pink. see triage assessment. 04/18 01:00 Reassessment: No changes from previously documented assessment. Patient and/or family vc1 updated on plan of care and expected duration. Pain level reassessed. Patient is alert, oriented x 3, equal unlabored respirations, skin warm/dry/pink. 02:00 Reassessment: No changes from previously documented assessment. Patient and/or family vc1 updated on plan of care and expected duration. Pain level reassessed. Patient is alert, oriented x 3, equal unlabored respirations, skin warm/dry/pink. 03:00 Reassessment: pt asleep on left side. vc1 04:00 Reassessment: No changes from previously documented assessment. vc1 05:00 Reassessment: No changes from previously documented assessment. vc1 06:26 Reassessment: Pt laying with eyes closed, no complaints or concerns at this time. vc1 Vital Signs: 04/17 22:04 BP 123 / 93; Pulse 65; Resp 16; Temp 97.5; Pulse Ox 99% ; Weight 86.18 kg; Height 6 ft. mc4 0 in. (182.88 cm); Pain 5/10; 22:19 BP 123 / 93; Pulse 65; Resp 16; Temp 97.5; Pulse Ox 99% ; Weight 86.18 kg; Height 6 ft. mc4 0 in. (182.88 cm); Pain 5/10; 04/18 04:00 BP 104 / 68; Pulse 58; Resp 16; Pulse Ox 98% ; vc1 05:00 BP 97 / 60; Pulse 57; Resp 17; Pulse Ox 96% on R/A; vc1 06:27 BP 104 / 77; Pulse 67; Resp 14; Pulse Ox 100% on R/A; vc1 04/17 22:19 Body Mass Index 25.77 (86.18 kg, 182.88 cm) 4 ED Course: 04/17 20:39 Patient arrived in ED. ja2 21:09 Wisam Lowry PA is PHCP. cp 21:09 Wisam Warren MD is Attending Physician. cp 21:56 US Extremity Venous W Compression Jose Luis In Process Unspecified. EDMS 22:08 Triage completed. 4 22:20 Arm band placed on left wrist. Patient placed in waiting room, Patient notified of wait mc4 time Patient Bandage applied to right open foot blister. Patient wearing socks only. No shoes. Ultrasound ordered and completed. Bandage applied. 23:45 Patient has correct armband on for positive identification. Bed in low position. Call bb light in reach. Side rails up X 1. 04/18 00:21 XRAY Chest (1 view) In Process Unspecified. EDMS 00:35 Inserted saline lock: 20 gauge in right forearm, using aseptic technique. Blood oe collected. 03:01 Lorenzo Bryan is Hospitalizing Provider. [facility] 04:59 COVID swab sent to lab. 04:59 COVID-19 SARS RT PCR (Document "Date of Onset" if Symptomatic) Sent. 06:26 Candi Peñaloza, RN is Primary Nurse. vc1 Administered Medications: 00:58 Drug: fentaNYL (PF) 25 mcg Route: IVP; Site: right antecubital; vc1 02:00 Follow up: Response: No adverse reaction vc1 00:58 Drug: Lasix (furosemide) 20 mg Route: IVP; Site: right antecubital; vc1 05:14 Follow up: Response: No adverse reaction; Pain is decreased vc1 Outcome: 03:02 Decision to Hospitalize by Provider. [facility] 19:00 Patient left the ED. ss Signatures: Dispatcher [employer] EDWisam Kovacs MD MD cha Ballard, Brenda, CHANELLE RN bb Petra Hi RN RN Wisam Lowry PA PA cp Espinosa, Orlando oe Marsh, Wendy Karen Swenson [facility] Candi Peñaloza RN RN vc1 Mirna Mills 4
--- NOTE | 2022-04-18 03:03 | EDPHYS ---
Physician Documentation [facility] Name: Huber Augustine Age: 57 yrs Sex: Male : 1965 Arrival Date: 04/17/2022 Time: 20:39 Bed 28 Private MD: ODETTE Physician Wisam Warren HPI: 04/17 21:20 This 57 yrs old Male presents to ER via Ambulatory with complaints of Leg Pain. cp 21:20 The patient presents with pain. The complaints affect the right leg. cp 21:20 Context: resulted from an unknown cause, the patient can fully bear weight, the patient cp is able to ambulate, with mild difficulty. Onset: The symptoms/episode began/occurred gradually. 21:20 Associated signs and symptoms: Pertinent negatives warmth, chest pain, abdominal pain. cp Historical: - Allergies: 22:08 No Known Allergies; mc4 - PMHx: 22:08 diabetes mellitus; Hypertensive disorder; neuropathy; Anxiety; Bipolar disorder; mc4 - PSHx: 22:08 Cholecystectomy; Tonsillectomy; mc4 - Immunization history:: Adult Immunizations up to date. - Social history:: Smoking status: Patient reports the use of cigarette tobacco products, Patient uses alcohol, on a daily basis. 12 pack per week. Patient/guardian denies using street drugs, IV drugs, [place] No barriers to communication noted, The patient speaks fluent [place], The patient is unemployed. - Code Status:: Full code. - Coronavirus screen:: The patient has NOT traveled to [place] in the past 14 days. Proceed with normal triage process as indicated. The patient has NOT had contact with known/suspected case of Coronavirus? Proceed with normal triage procedures. - Ebola Screening: : Patient denies exposure to infectious person Patient denies travel to an Ebola-affected area in the 21 days before illness onset. ROS: 21:25 MS/extremity: Positive for pain, of the right leg. cp 21:25 Constitutional: Negative for body aches, chills, fever. cp 21:25 Cardiovascular: Negative for chest pain. cp 21:25 Eyes: Negative for injury, pain, redness, and discharge. cp 21:25 ENT: Negative for drainage from ear(s), ear pain, sore throat, difficulty swallowing, difficulty handling secretions. 21:25 Respiratory: Negative for cough, shortness of breath, wheezing. 21:25 Abdomen/GI: Negative for abdominal pain, nausea, vomiting, and diarrhea. 21:25 Neuro: Negative for altered mental status, headache, syncope, weakness. 21:25 All other systems are negative. Exam: 21:30 Constitutional: The patient appears in no acute distress, alert, awake, cp non-diaphoretic, non-toxic, well developed, well nourished. 21:30 Head/Face: Normocephalic, atraumatic. cp 21:30 Eyes: Periorbital structures: appear normal, Conjunctiva: normal, no exudate, no injection, Sclera: no appreciated abnormality, Lids and lashes: appear normal, bilaterally. 21:30 ENT: External ear(s): are unremarkable, Nose: is normal, Mouth: Lips: moist, Oral mucosa: moist, Posterior pharynx: Airway: no evidence of obstruction, patent. 21:30 Chest/axilla: Inspection: normal, Palpation: is normal, no crepitus, no tenderness. 21:30 Cardiovascular: Rate: normal, Rhythm: regular, Edema: pedal edema, that is moderate, ankle edema, that is moderate, JVD: is not appreciated. 21:30 Respiratory: the patient does not display signs of respiratory distress, Respirations: normal, no use of accessory muscles, no retractions, labored breathing, is not present, Breath sounds: decreased breath sounds, are not appreciated, stridor, is not appreciated, wheezing: is not appreciated. 21:30 Abdomen/GI: Inspection: distension, that is mild, Bowel sounds: active, all quadrants, Palpation: abdomen is soft and non-tender, in all quadrants. 21:30 Back: pain, is absent, ROM is normal. 21:30 Neuro: Orientation: to person, place \\T\\ time. Mentation: is normal, Motor: moves all fours, strength is normal, Sensation: is normal. 04/18 00:22 ECG was reviewed by the Attending Physician. cp Vital Signs: 04/17 22:04 BP 123 / 93; Pulse 65; Resp 16; Temp 97.5; Pulse Ox 99% ; Weight 86.18 kg; Height 6 ft. mc4 0 in. (182.88 cm); Pain 5/10; 22:19 BP 123 / 93; Pulse 65; Resp 16; Temp 97.5; Pulse Ox 99% ; Weight 86.18 kg; Height 6 ft. mc4 0 in. (182.88 cm); Pain 5/10; 04/18 04:00 BP 104 / 68; Pulse 58; Resp 16; Pulse Ox 98% ; vc1 05:00 BP 97 / 60; Pulse 57; Resp 17; Pulse Ox 96% on R/A; vc1 06:27 BP 104 / 77; Pulse 67; Resp 14; Pulse Ox 100% on R/A; vc1 04/17 22:19 Body Mass Index 25.77 (86.18 kg, 182.88 cm) mc4 MDM: 04/17 23:43 Patient medically screened. ga 23:50 Differential diagnosis: DVT, cellulitis, CHF. 04/18 03:03 Data reviewed: vital signs, nurses notes, lab test result(s), EKG, radiologic studies, ga doppler, plain films. Data interpreted: hospital monitor: rate is 65 beats/min, rhythm is regular, Pulse oximetry: on room air is 99 %. Test interpretation: by ED physician or midlevel provider: ECG, plain radiologic studies. Counseling: I had a detailed discussion with the patient and/or guardian regarding: the historical points, exam findings, and any diagnostic results supporting the discharge/admit diagnosis, the presence of at least one elevated blood pressure reading (>120/80) during this emergency department visit, lab results, radiology results, the need for further work-up and treatment in the hospital. 04/18 00:02 Order name: Basic Metabolic Panel; Complete Time: 02:24 cp 04/18 00:02 Order name: CBC with Diff; Complete Time: 00:54 cp 04/18 00:02 Order name: LFT's; Complete Time: 02:24 cp 04/18 00:02 Order name: Magnesium; Complete Time: 02:24 cp 04/18 00:02 Order name: NT PRO-BNP; Complete Time: 02:24 cp 04/18 00:02 Order name: PT-INR; Complete Time: 00:54 cp 04/17 21:20 Order name: US Extremity Venous W Compression Jose Luis; Complete Time: 22:12 cp 04/17 22:12 Interpretation: Report reviewed. 04/18 00:02 Order name: Troponin HS; Complete Time: 02:24 cp 04/18 03:55 Order name: Urine Drug Screen EDTX 04/18 04:45 Order name: COVID-19 SARS RT PCR (Document "Date of Onset" if Symptomatic) 04/18 06:07 Order name: SARS-COV-2 RT PCR EDTX 04/18 08:35 Order name: Glucose, Ancillary Testing EDTX 04/18 11:54 Order name: Glucose, Ancillary Testing EDTX 04/18 16:49 Order name: Glucose, Ancillary Testing EDTX 04/18 00:02 Order name: XRAY Chest (1 view) 04/18 00:02 Order name: EKG; Complete Time: 00:03 cp 04/18 00:02 Order name: Cardiac monitoring; Complete Time: 00:30 04/18 00:02 Order name: EKG - Nurse/Tech; Complete Time: 00:30 04/18 00:02 Order name: IV Saline Lock; Complete Time: 00:30 cp 04/18 00:02 Order name: Labs collected and sent; Complete Time: 00:30 04/18 00:02 Order name: O2 Per Protocol; Complete Time: 00:58 cp 04/18 00:02 Order name: O2 Sat Monitoring; Complete Time: 00:35 cp EC:22 Rate is 59 beats/min. Rhythm is regular. PA interval is normal. QRS interval is normal. cp QT interval is normal. T waves are Inverted in lead aVR. Interpreted by me. Reviewed by me. Administered Medications: 00:58 Drug: fentaNYL (PF) 25 mcg Route: IVP; Site: right antecubital; vc1 02:00 Follow up: Response: No adverse reaction vc1 00:58 Drug: Lasix (furosemide) 20 mg Route: IVP; Site: right antecubital; vc1 05:14 Follow up: Response: No adverse reaction; Pain is decreased vc1 Disposition: 03:03 Co-signature as Attending Physician, Wisam Warren MD I agree with the assessment and ga plan of care. Disposition Summary: 04/18/22 03:02 Hospitalization Ordered Hospitalization Status: Observation ga Provider: Lorenzo Bryan cha Condition: Fair ga Problem: new ga Symptoms: have improved ga Bed/Room Type: Standard ga Location: Telemetry/MedSurg (observation)(04/18/22 16:15) [facility] Room Assignment: 220(04/18/22 16:15) ja1 Diagnosis - Dyspnea ga - Edema, unspecified ga - Tobacco abuse counseling ga - Tobacco use ga - Systolic (congestive) heart failure ga - Unspecified cirrhosis of liver ga Forms: - Medication Reconciliation Form ga - SBAR form ga Signatures: Dispatcher [employer] EDWisam Kovacs MD MD cha Page, Corey, PA PA cp Nikia Buckley RN RN Refugio Jose RN RN ja1 Candi Peñaloza RN RN 1 Sia Priest PA PA sb3 Mirna Mills mc4 Corrections: (The following items were deleted from the chart) 04/17 22:13 21:15 MS/extremity: Positive for pain, of the right leg, cp cp 04/18 03:54 03:02 Telemetry/MedSurg (observation) ga cg 03:54 03:02 ga cg 16:15 03:54 BR ER HOLD cg ja1 16:15 03:54 ERHOLD- cg ja1
--- NOTE | 2022-04-18 03:53 | P.HP ---
Certification for Inpatient Patient admitted to: Observation With expected LOS: <2 Midnights Patient will require the following post-hospital care: None Practitioner: I am a practitioner with admitting privileges, knowledge of patient current condition, hospital course, and medical plan of care. Services: Services provided to patient in accordance with Admission requirements found in Title 42 Section 412.3 of the Code of Federal Regulations Patient History Date of Service: 04/18/22 Reason for admission: CHF, Cellulitus History of Present Illness: Patient is a 56-year-old male with PMH of NIDDM, hypertension, bipolar disorder, and neuropathy who presented to the ED with complaints of R foot blister/pain and BLE swelling. Patient reports he was seen here 2 days ago for blister on his foot, discharged with a prescription for bactrim, and instructed to return if it did not improve. Additional work up revealed BNP of 409, CXR showed trace diffuse pulmonary interstitial thickening. WBC and vital signs WNL. He was given lasix with improvement in swelling. ED provider wishes to admit patient for observation. Allergies No Known Allergies Allergy (Unverified 06/04/21 03:49) Home Medications: Aspirin [Aspirin EC] 81 mg PO DAILY #30 tablet. 06/04/21 Atorvastatin Calcium [Lipitor] 40 mg PO BEDTIME #30 tab 06/04/21 Cyanocobalamin [Vitamin B-12*] 1,000 mcg PO DAILY #30 tab 06/04/21 Folic Acid 1 mg PO DAILY #30 tablet 06/04/21 Thiamine HCl 100 mg PO DAILY #30 tablet 06/04/21 - Past Medical/Surgical History Diabetic: Yes -: Diabetes mellitus type 2 -: Hypertension -: "Cyst on liver" -: Neuropathy -: Alcohol/drug abuse -: Cholecystectomy -: Right lower leg surgery Psychosocial/ Personal History: [place] - Family History Mother -: Liver disease Father -: Heart disease - Social History Smoking Status: Current every day smoker Alcohol use: Yes CD- Drugs: Yes Caffeine use: Yes Place of Residence: Homeless Physical Examination - Studies Laboratory Data (last 24 hrs) 04/18/22 00:25: PT 11.7, INR 1.06 04/18/22 00:25: WBC 6.1, Hgb 13.9, Hct 41.2, Plt Count 116 L 04/18/22 00:25: Sodium 141, Potassium 3.9, BUN 10, Creatinine 0.90, Glucose 144 H, Magnesium 2.1, Total Bilirubin 0.5, AST 48 H, ALT 54, Alkaline Phosphatase 183 H Assessment and Plan - Problems (Diagnosis) (1) Type 2 diabetes mellitus Current Visit: Yes Status: Chronic Qualifiers: 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: without 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 use Diabetes mellitus complication status: with skin complications Diabetes mellitus complication detail: with other skin complication Qualified Code(s): E11.628 - Type 2 diabetes mellitus with other skin complications (2) CHF (congestive heart failure) Current Visit: Yes Status: Chronic Qualifiers: Heart failure type: unspecified Heart failure chronicity: acute on chronic Qualified Code(s): I50.9 - Heart failure, unspecified (3) Tobacco abuse Current Visit: Yes Status: Chronic (4) Hypertension Current Visit: Yes Status: Chronic Qualifiers: Hypertension type: primary hypertension Qualified Code(s): I10 - Essential (primary) hypertension (5) Bipolar disorder Current Visit: No Status: Chronic Qualifiers: Active/Remission status: remission status unspecified Qualified Code(s): F31.9 - Bipolar disorder, unspecified (6) Cellulitis of right foot Current Visit: Yes Status: Acute - Plan -Continue Bactrim for cellulitus of R foot. Wound healing consulted. Follow wound culture. -Cardiology consulted for further evaluation of CHF (unknown EF). Given 1 dose IV lasix in ED -ACHS glucose checks with mild sliding scale insulin and diabetic diet. -Reconcile and continue home medications -Lovenox for VTE ppx -Full code Discharge Plan: Home Plan to discharge in: 24 Hours - Advance Directives Does patient have a Living Will: No Does patient have a Durable POA for Healthcare: No - Code Status/Comfort Care Code Status Assessed: Yes (Full) Critical Care: No Time Spent Managing Pts Care (In Minutes): 50
[2022-04-18] MEDS ORDERED: ONDANSETRON 4 MG/2 ML VIAL IV PRN (05:18)
[2022-04-18] MEDS: INSULIN -REGULAR HUMAN 50 UNIT/0.5 ML ML SQ SCH ×4 (07:30→20:49)
[2022-04-18] MEDS ORDERED: SMZ./TMP. 800/160 MG TABLET ONE (08:11)
[2022-04-18] MEDS ORDERED: ENOXAPARIN 40 MG/0.4 ML SQ ONE (08:12)
[2022-04-18] MEDS: SMZ./TMP. 800/160 MG TABLET PO SCH ×2 (08:24→20:46)
[2022-04-18] MEDS: ENOXAPARIN 40 MG/0.4 ML SQ SCH (08:24)
[2022-04-18 09:03] VITALS: BMI 25.7
--- NOTE | 2022-04-18 11:06 | EKG ---
Test Date: 2022-04-18 Test Time: 00:15:24 Combination Worker: MELISSA MEASUREMENT RESULTS: Intervals: Rate: 59 MI: 154 QRSD: 92 QT: 428 QTc: 423 Brandon: P: 70 MI: 154 QRS: 32 T: 30 INTERPRETIVE STATEMENTS: Sinus bradycardia Possible Inferior infarct, age undetermined Abnormal ECG Compared to ECG 06/04/2021 00:34:39 No significant changes Electronically Signed On 04-18-22 11:04:52 CDT by Eriberto Triplett
[2022-04-18] MEDS ORDERED: INSULIN -REGULAR HUMAN 50 UNIT/0.5 ML ML ONE (12:09)
[2022-04-18] MEDS ORDERED: ACETAMINOPHEN 500 MG TAB ONE (12:10)
[2022-04-18] MEDS: ACETAMINOPHEN 500 MG TAB PO PRN (12:15)
--- NOTE | 2022-04-18 14:41 | RAD REPORT ---
EXAM DESCRIPTION: Single view AP chest CLINICAL HISTORY: SWELLING. COMPARISON: None. TECHNIQUE: Single view AP chest radiograph(s). FINDINGS: Trace diffuse pulmonary interstitial thickening. No infiltrate identified. No pleural effu zachary. No pneumothorax. Nonenlarged cardiomediastinal silhouette. No significant osseous abnormality. IMPRESSION: Trace diffuse pulmonary interstitial thickening, which can be seen with interstitial clark ma versus chronic changes. Electronically signed by: Kierra Lopez MD 04/18/2022 12:32 AM CDT Due to temporary technical issues with the PACS/Fluency reporting system, reports are being signed by the in house radiologists without review as a courtesy to insure prompt reporting. The interpreting radiologist is fully responsible for the content of the report.
--- NOTE | 2022-04-18 17:52 | P.PN ---
Date of Service: 04/18/22 Patient seen and examined. He has bilateral lower extremity swelling. Noted blister on the sole of the right foot. Plan: I suspect acute CHF rather than cellulitis. Venous stasis dermatitis/ulcer.\ Plan: Continue antibiotics for now. Wound care input appreciated. IV Lasix Echocardiogram.
[2022-04-19 04:25] LABS: Barbiturates NEGATIVE (NEGATIVE); Benzodiazepines NEGATIVE (NEGATIVE); Cocaine NEGATIVE (NEGATIVE); METHAMPHETAM NEGATIVE (NEGATIVE); Methadone NEGATIVE (NEGATIVE); Opiates NEGATIVE (NEGATIVE); Phencyclidine NEGATIVE (NEGATIVE); THC Cannibis POSITIVE (NEGATIVE)
[2022-04-19 04:26] LABS: Urine Appearance Clear (Clear); Urine Bilirubin Negative (Negative); Urine Blood Negative (Negative); Urine Color Yellow (Yellow); Urine Glucose Negative (Negative); Urine Protein Negative (Negative); Urine pH 7.5 (5.0-7.0)
[2022-04-19 04:29] LABS: Urine Microscopic Reflex NO UMIC
[2022-04-19] MEDS: INSULIN -REGULAR HUMAN 50 UNIT/0.5 ML ML SQ SCH ×4 (07:30→20:18)
[2022-04-19] MEDS: FUROSEMIDE 40 MG/4 ML VIAL IV SCH ×2 (09:44→17:16)
[2022-04-19] MEDS: ENOXAPARIN 40 MG/0.4 ML SQ SCH (09:44)
[2022-04-19] MEDS: SMZ./TMP. 800/160 MG TABLET PO SCH ×2 (09:45→20:15)
--- NOTE | 2022-04-19 14:18 | P.PN ---
Subjective Date of Service: 04/19/22 Chief Complaint: CHF, Cellulitus Patient states he is feeling better. He reports improvement in swelling and pain in the lower extremities. Physical Examination - Vital Signs Temperature: 97.7 F Blood Pressure: 115/73 Pulse: 70 Respirations: 18 Pulse Ox (%): 99 - Physical Exam General: Alert, In no apparent distress, Oriented x3 HEENT: Mucous membr. moist/pink Neck: JVD not distended Respiratory: Clear to auscultation bilaterally, Normal air movement Cardiovascular: Regular rate/rhythm, Normal S1 S2, Edema (1+ bilateral lower extremity pitting edema) Gastrointestinal: Normal bowel sounds, Soft and benign, Non-distended, No ascites Musculoskeletal: Swelling (Bilateral lower extremities) Integumentary: Other (Dry wound on the sole of the right great toe) Neurological: Normal strength at 5/5 x4 extr Assessment And Plan - Current Problems (Diagnosis) (1) Acute heart failure Current Visit: Yes Status: Acute (2) Lower extremity edema Current Visit: Yes Status: Acute (3) Diabetic foot ulcer Current Visit: Yes Status: Acute (4) Hypertension Current Visit: Yes Status: Chronic Qualifiers: Hypertension type: primary hypertension Qualified Code(s): I10 - Essential (primary) hypertension (5) Type 2 diabetes mellitus Current Visit: Yes Status: Chronic Qualifiers: 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 Monitor intake and output. Echocardiogram ordered to assess his LV function. Wound care input appreciated. Continue local wound care. Continue Bactrim for possible infected diabetic foot ulcer. Insulin sliding scale for glucose management. Aggressive diuresis for 1 more day as we wait for echo results regarding LV fu nction.
[2022-04-19] MEDS: ACETAMINOPHEN 500 MG TAB PO PRN (18:35)
[2022-04-20 05:40] VITALS: O2SAT 99
[2022-04-20 06:34] LABS: Absolute Lymphocytes (CBC) 2.9 K/uL (0.7-4.9); Hematocrit 42.5 % (39.6-49.0); Lymphocytes % 42.6 % (15.3-44.8); MPV 9.8 fL (7.6-11.3); RBC Red Blood Cell Count 4.59 M/uL (4.33-5.43)
[2022-04-20] MEDS: ACETAMINOPHEN 500 MG TAB PO PRN (06:42)
[2022-04-20 06:53] LABS: Potassium 4.2 mmol/L (3.5-5.1)
--- NOTE | 2022-04-20 07:14 | ECHO ---
HEIGHT: 6 ft 0 in WEIGHT: 190 lb 0 oz DATE OF STUDY: 04/19/[address]: Sia Priest 2-DIMENSIONAL: YES M.MODE: YES DOPPLER: YES COLOR FLOW: YES TDS: PORTABLE: YES DEFINITY: BUBBLE STUDY: DIAGNOSIS: CONGESTIVE HEART FAILURE CARDIAC HISTORY: CATHERIZATION: NO SURGERY: NO PROSTHETIC VALVE: NO PACEMAKER: NO MEASUREMENTS (cm) DIASTOLIC (NORMALS) SYSTOLIC (NORMALS) IVSd 1.2 (0.6-1.2) LA Diam 3.7 (1.9-4.0) LVEF 61% LVIDd 4.2 (3.5-5.7) LVIDs 2.8 (2.0-3.5) %FS 32% LVPWd 1.2 (0.6-1.2) Ao Diam 2.7 (2.0-3.7) 2 DIMENSIONAL ASSESSMENT: RIGHT ATRIUM: NORMAL LEFT ATRIUM: NORMAL RIGHT VENTRICLE: NORMAL LEFT VENTRICLE: NORMAL TRICUSPID VALVE: NORMAL MITRAL VALVE: NORMAL PULMONIC VALVE: NORMAL AORTIC VALVE: SCLEROSIS PERICARDIAL EFFUSION: NONE AORTIC ROOT: NORMAL LEFT VENTRICULAR WALL MOTION: NORMAL DOPPLER/COLOR FLOW: MILD TRICUSPID REGURGITATION. NORMAL RIGHT VENTRICULAR SYSOLIC PRESSURE. COMMENTS: AORTIC SCLEROSIS. NORMAL RIGHT VENTRICULAR SYSTOLIC PRESSURE. MILD TRICUSPID REGURGITATION. NORMAL LEFT VENTRICULAR SIZE AND FUNCTION. EJECTION FRACTION 61%. TECHNOLOGIST: MICHAEL LOZANO
[2022-04-20] MEDS: INSULIN -REGULAR HUMAN 50 UNIT/0.5 ML ML SQ SCH ×2 (07:30→11:30)
[2022-04-20 07:53] LABS: Blood Morphology Comment NOT SEEN (NOT SEEN); Platelet Estimate ADEQ
[2022-04-20] MEDS: FUROSEMIDE 40 MG/4 ML VIAL IV SCH (09:23)
[2022-04-20] MEDS: ENOXAPARIN 40 MG/0.4 ML SQ SCH (09:23)
[2022-04-20] MEDS: SMZ./TMP. 800/160 MG TABLET PO SCH (09:23)
[2022-04-20 12:42] VITALS: BP 135/80; TEMP 97
--- NOTE | 2022-04-20 13:52 | P.DS ---
Admission Date: 04/18/22 Discharge Date: 04/20/22 Disposition: ROUTINE DISCHARGE Discharge Condition: FAIR Reason for Admission: CHF, Cellulitus - Problems (1) Acute heart failure Current Visit: Yes Status: Acute (2) Lower extremity edema Current Visit: Yes Status: Acute (3) Diabetic foot ulcer Current Visit: Yes Status: Acute (4) Hypertension Current Visit: Yes Status: Chronic Qualifiers: Hypertension type: primary hypertension Qualified Code(s): I10 - Essential (primary) hypertension (5) Type 2 diabetes mellitus Current Visit: Yes Status: Chronic Qualifiers: Diabetes mellitus assisted insulin use: without assisted use Diabetes mellitus complication status: with skin complications Diabetes mellitus complication detail: with other skin complication Qualified Code(s): E11.628 - Type 2 diabetes mellitus with other skin complications Brief History of Present Illness: Patient is a 56-year-old male with PMH of NIDDM, hypertension, bipolar disorder, and neuropathy who presented to the ED with complaints of R foot blister/pain and BLE swelling. Patient reports he was seen here 2 days ago for blister on his foot, discharged with a prescription for bactrim, and instructed to return if it did not improve. Additional work up revealed BNP of 409, CXR showed trace diffuse pulmonary interstitial thickening. WBC and vital signs WNL. He was given lasix with improvement in swelling. Patient admitted for further management. Hospital Course: Patient admitted to the medical floor and treated for lower extremity edema with IV Lasix. Echocardiogram done reported normal LV function. Extremity edema likely secondary to acute diastolic heart failure. Edema significantly improved with IV Lasix. He was seen by wound care for the right foot blister and prescribed local wound care. Wound looked clean and no debridement needed. Continued Bactrim for possible infected diabetic foot ulcer. Insulin sliding scale for glucose management. Patient has significantly improved with treatment and deemed stable for discharge. Is discharged with Lasix and also informed to complete Bactrim previously prescribed. Vital Signs/Physical Exam: Temp Pulse Resp BP Pulse Ox 97.0 F 67 17 135/80 96 04/20/22 12:00 04/20/22 12:00 04/20/22 12:00 04/20/22 12:00 04/20/22 12:00 Laboratory Data at Discharge: WBC 6.8 K/uL (4.3-10.9) 04/20/22 06:13 Hgb 14.6 g/dL (13.6-17.9) 04/20/22 06:13 Hct 42.5 % (39.6-49.0) 04/20/22 06:13 Plt Count 155 K/uL (152-406) D 04/20/22 06:13 PT 11.7 SECONDS (9.5-12.5) 04/18/22 00:25 INR 1.06 04/18/22 00:25 Sodium 144 mmol/L (136-145) 04/20/22 06:13 Potassium 4.2 mmol/L (3.5-5.1) 04/20/22 06:13 BUN 18 mg/dL (7-18) 04/20/22 06:13 Creatinine 1.10 mg/dL (0.55-1.3) 04/20/22 06:13 Glucose 107 mg/dL (74-106) H 04/20/22 06:13 Magnesium 2.1 mg/dL (1.8-2.4) 04/18/22 00:25 Total Bilirubin 0.5 mg/dL (0.2-1.0) 04/18/22 00:25 AST 48 U/L (15-37) H 04/18/22 00:25 ALT 54 U/L (12-78) 04/18/22 00:25 Alkaline Phosphatase 183 U/L (45-117) H 04/18/22 00:25 Home Medications: Buspirone HCl [Buspar] 1 tab PO BID 04/19/22 Divalproex Sodium [Divalproex Sodium ER] 1 tab PO BID 04/19/22 Gabapentin 1 tab PO TID 04/19/22 Pantoprazole [Protonix Tab*] 1 tab PO DAILY 04/19/22 Trazodone HCl [Desyrel] 150 mg PO BEDTIME 04/19/22 Furosemide [Lasix] 40 mg PO DAILY #30 tab 04/20/22 Smz./Tmp. [Bactrim Ds 800 MG/160 MG*] 1 tab PO BID #10 tab 04/20/22 New Medications: Smz./Tmp. [Bactrim Ds 800 MG/160 MG*] 1 tab PO BID #10 tab Furosemide [Lasix] 40 mg PO DAILY #30 tab
== END 2022-04-20 14:00 | disposition home or self-care (01) ==
LOC: ER 20:36 → ERHOLD 04-18 03:47 → 2ND 04-18 19:57
PROVIDERS: ADMIT Internal Medicine; ATTEND Internal Medicine
DX: I11.0 Hypertensive heart disease with heart failure (principal); I50.9 Heart failure, unspecified; E11.628 Type 2 diabetes mellitus with other skin complications; L03.115 Cellulitis of right lower limb; E11.621 Type 2 diabetes mellitus with foot ulcer; R60.0 Localized edema; E11.40 Type 2 diabetes mellitus with diabetic neuropathy, unspecified; I87.8 Other specified disorders of veins; K76.89 Other specified diseases of liver; F31.9 Bipolar disorder, unspecified; Z59.00 Homelessness unspecified; F17.210 Nicotine dependence, cigarettes, uncomplicated; Z71.6 Tobacco abuse counseling; Z79.899 Other long term (current) drug therapy; Z90.49 Acquired absence of other specified parts of digestive tract; Z20.822 Contact with and (suspected) exposure to COVID-19; Z82.49 Family history of ischemic heart disease and other diseases of the circulatory system
CPT/HCPCS: 93005; 93306; 85025 ×2; 80048 ×2; 36415 ×2; 83735; 85610; 82947 ×10; 80076; 81003; 84484; 83880; 80307; 71045; 93970; 99251; 96375; 96374; 99284; U0003; J1940 ×4; J1815; J1650 ×3; J3010; G0378 ×5

== ENCOUNTER 2022-04-29 17:49 | Emergency (ER) | payer OTHER ==
--- OUTSIDE RECORDS SUMMARY | 2022-04-29 17:54 | XMS REPORT | Continuity of Care Document ---
:1965 Author Organization [facility] t Address [address] [place] [address] Care Team Providers Name Role Phone Dylon [...] Date Date Clinician morphine DA Active [place] REDNESS/ITCH HC A ING TO AREA 5-26 Maryuri an OF INJECTION 00:00: d 00 [facility] morphine DA Active [place] 2018-0 [facility] 8-27 [place] 00:00: d 00 [facility] morphine DA Active [place] REDNESS/ITCH 2018-0 HC A ING TO AREA 8-27 Maryuri an OF INJECTION 00:00: d 00 [facility] No Known DA Active U 2017- [facility] Allergie 6-13 [place] s 00:00: d 00 [facility] Medications This patient has no known medications. Procedures This patient has no known procedures. Encounters Start End Encounter Admission Attending Care Care Encounter Source Date/Time Date/Time Type Type Clinicians Facility Department ID 2020-09-07 Inpatient HCAPM NELIDA [id number] [facility] 20:04:00 [facility] 2020-01-10 Inpatient HCAPM NELIDA [id number] [facility] 11:42:00 [facility] 2019-11-22 Inpatient HCAPM NELIDA [id number] [facility] 08:41:00 [id number] [facility] 2019-05-12 Inpatient E MHBL MED 7500 MHB L 23:36:00 2022-03-30 2022-03-31 Emergency EM Dylon, HCAPM NELIDA [id number] [facility] 23:17:00 15:23:[address] [facility] 2022-03-30 2022-03-31 Emergency EM Dylon, HCAPM HCAPM [id number] [facility] 23:17:00 15:23:[id number] [facility] 2021-05-19 2021-05-19 Emergency E CONSUELO, MHBL MHBL 7503 MHBL 12:33:00 17:33:00 EMI 2019-11-11 2019-11-11 Emergency E MHSE MHSE 7502 MH 18:37:00 18:37:00 [facility] 2019-10-19 2019-10-19 Emergency E MHSE MHSE 7501 10:27:00 10:27:00 [facility] Results Test Description Test Time Test Comments Results Result Comments Source COVID 19 Asymptomatic IH AG 2022-03-31 13:32:00 Test Item Value Reference Range Interpretation Comme nts COVID 19 Asymptomatic IH AG NEGATIVE Negative Per cnc technician, 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 GLUCOSE BEDSIDE [id number] 12:27:00 Test Item Value Reference Range Interpretation Comments GLUCOSE BEDSIDE TESTING (test code 194 mg/dL 70-110 H = GLUBED) TROP-I HIGH [id number] 04:12:00 Test Item Value Reference Range Interpretation [...] varyby method. Completed by Nursing: NOCSALLY W/AUTO [id number] 03:12:00 Test Item Value Reference Range Interpretation [...] NT WITH AUTO DIFFERENTI AL. BASIC METABOLIC [id number] 00:36:00 Test Item Value Reference Range Interpretation [...] Dose Date: 11/05/00 Dose Time: HEPATIC FUNCTION [id number] 00:36:00 Test Item Value Reference Range Interpretation [...] Dose Date: 11/05/00Las Dose Time: TROP-I HIGH [id number] 00:36:00 Test Item Value Reference Range Interpretation [...] NOLast Dose Date: 11/05/00Last Dose Time: 0000 [id number] 00:36:00 Test Item Value Reference Range Interpretation [...] [Auto mated message] = SALVADOR) The system JoMaJa generated this result transmitted ref erence range: 2.8-20.0 THER. The reference r sonja was not used to interpret this result as normal/abnor mal. UA RFLX MICR CULT IF [id number] 00:29:00 Test Item Value Reference Range Interpretation [...] Indication for culture: RiskForSepsis-no oth srcCBC W/AUTO [id number] 20:54:00 Test Item Value Reference Range Interpretation [...] NO DIFF/SCN CRITERIA = MDIFF) CBC W/AUTO [id number] 20:54:00 Test Item Value Reference Range Interpretation [...] code NO DIFF/SCN CRITERIA = MDIFF) RBC [id number] 20:54:00 Test Item Value Reference Range Interpretation Comments PLATELET MORPHOLOGY (test code = NORMAL PLTMORPH) CBC W/AUTO [id number] 20:54:00 Test Item Value Reference Range Interpretation [...] NO DIFF/SCN CRITERIA = MDIFF) BASIC METABOLIC [id number] 20:47:00 Test Item Value Reference Range Interpretation [...] CA) 8.5 MG/DL 8.5-10.1 N HEPATIC FUNCTION [id number] 20:47:00 Test Item Value Reference Range Interpretation [...] 189 Unit/L 50-136 H code = ALKP) [id number] 20:47:00 Test Item Value Reference Range Interpretation Comments LIPASE (test code = LIP) 219 Unit/L 114-286 N CBC W/AUTO [id number] 20:34:00 Test Item Value Reference Range Interpretation [...] code = DIFF/SCN CRITERIA MDIFF) BASIC METABOLIC [id number] 12:34:00 Test Item Value Reference Range Interpretation [...] CA) 9.5 MG/DL 8.5-10.1 N HEPATIC FUNCTION [id number] 12:34:00 Test Item Value Reference Range Interpretation [...] 291 Unit/L 50-136 H code = ALKP) [id number] 12:34:00 Test Item Value Reference Range Interpretation Comments LIPASE (test code = LIP) 207 Unit/L 114-286 N BASIC METABOLIC [id number] 12:29:00 Test Item Value Reference Range Interpretation [...] CA) 9.5 MG/DL 8.5-10.1 N HEPATIC FUNCTION [id number] 12:29:00 Test Item Value Reference Range Interpretation [...] TOTAL (test Unit/L 50-136 code = ALKP) [id number] 12:29:00 Test Item Value Reference Range Interpretation Comments LIPASE (test code = LIP) 207 Unit/L 114-286 N CBC W/AUTO [id number] 12:17:00 Test Item Value Reference Range Interpretation [...] DIFF/SCN CRITERIA MDIFF) - CT ABD PELVIS [id number] 11:10:00 Name: LUBNA LEACH [facility] : 1965 Age/S: 54 / M [address] Unit #: [id number] Loc: [place] [address] Phys: Nito Golden MD Acct: [id number] Dis Date: Status: REG ER PHONE #: [phone] Exam Date: 11/22/2019 1055 FAX #: Reason: rlq pain EXAMS: CPT: [id number] CT ABD PELVIS W/CONT 88536 LOCATION: T18 EXAM: CT ABDOMEN AND PELVIS [...] 11/22/2019 (1113) PAGE 1 Signed ReportBASIC METABOLIC [id number] 10:40:00 Test Item Value Reference Range Interpretation [...] CA) 9.0 MG/DL 8.5-10.1 N HEPATIC FUNCTION [id number] 10:40:00 Test Item Value Reference Range Interpretation [...] 112 Unit/L 50-136 N code = ALKP) [id number] 10:40:00 Test Item Value Reference Range Interpretation Comments LIPASE (test code = LIP) 106 Unit/L 114-286 L UA RFLX MICR CULT IF [id number] 10:12:00 Test Item Value Reference Range Interpretation [...] URINE: CLEAN CATCHIndication for culture: Dysuria/FrequencyCBC W/AUTO [id number] 09:46:00 Test Item Value Reference Range Interpretation [...] CRITERIA MDIFF) UA RFLX MICR CULT IF [id number] 09:45:00 Test Item Value Reference Range Interpretation [...] URINE: CLEAN CATCHIndication for culture: Dysuria/FrequencyCBC W/AUTO [id number] 23:05:00 Test Item Value Reference Range Interpretation [...] AUTO DIFFERENTIAL. UA RFLX MICR CULT IF [id number] 22:39:00 Test Item Value Reference Range Interpretation [...] CATCHIndication for culture: Dysuria/Frequency- CT ABD PELVIS [id number] 22:30:00 Name: LUBNA LEACH [facility] : 1965 Age/S: 54 / M [address] Unit #: [id number] Loc: [place] [address] Phys: Lino Ordaz MD Acct: [id number] Dis Date: Status: REG ER PHONE #: [phone] Exam Date: 10/14/20192219 FAX #: Reason: abdominal pain EXAMS: CPT: [id number] CT ABD PELVIS W/CONT 92715 EXAM: - CTABD PELVIS W/CONT HISTORY: Abdominal [...] Report (CONTINUED) Name: LUBNA LEACH [facility] : 1965 Age/S: 54 / M [address] [facility] [address] Unit #: [id number] Loc: [place] [address] Phys: Lino Ordaz MD Acct: [id number] Dis Date: Status: REG ER PHONE #: [phone] Exam Date: 10/14/20190 FAX #: Reason: abdominal pain EXAMS: CPT: [id number] CT ABD PELVIS W/CONT 72704 <Continued> at 2230 Reported and signed by: Choco Wells M.D. CC: Lino Ordaz MD; Nuha BARRAZA Technologist:Leeroy Maldonado, RT(R)(CT)(MRI) CTDI: DLP: Trnscb Date/Time: 10/14/2019 (2229) [email or web address] Orig Print D/T: S: 10/14/2019 (3324) PAGE 2 Signed Report UA RFLX MICR CULT IF [id number] 22:21:00 Test Item Value Reference Range Interpretation [...] CLEAN CATCHIndication for culture: Dysuria/Frequency COMPREHENSIVE METABOLIC [id number] 21:35:00 Test Item Value Reference Range Interpretation [...] code = ALKP) - XR CHEST 1 [id number] 21:30:00 Name: LUBNA LEACH [facility] : 1965 Age/S: 54 / M [address] Unit #: [id number] Loc: [place] [address] Phys: Lino Ordaz MD Acct: [id number] Dis Date: Status: REG ER PHONE #: [phone] Exam Date: 10/14/20192112 FAX #: Reason: liver failure EXAMS: CPT: [id number] XR CHEST 1 V 77605 Fluoro Time: DAP (Gy m2): Air Kerma [...] PAGE 1 Signed Report Name: LUBNA LEACH [facility] [place] : 1965 Age/S: 54 / M [address] Unit #: [id number] Loc: [place] [address] Phys: Lino Ordaz MD Acct: [id number] Dis Date: Status: REG ER PHONE #: [phone] Date: 10/14/20192112 FAX #: Reason: liver failure EXAMS: CPT: [id number] XR CHEST 1 V 19160 Fluoro Time: DAP (Gy m2): Air Kerma (mGy): <Continued> Technologist: Farooq Lang, RT(R)(CT) Trnscb Date/Time: 10/14/2019 (2129) [email or web address] Orig Print D/T: S: 10/14/2019 (2133) PAGE 2 Signed ReportCBC W/AUTO [id number] 21:25:00 Test Item Value Reference Range Interpretation [...] code = DIFF/SCN CRITERIA MDIFF) COMPREHENSIVE METABOLIC [id number] 21:22:00 Test Item Value Reference Range Interpretation [...] Unit/L 50-136 code = ALKP) CBC W/AUTO [id number] 13:44:00 Test Item Value Reference Range Interpretation [...] AUTO DIFFERENTIAL. UA RFLX MICR CULT IF [id number] 13:13:00 Test Item Value Reference Range Interpretation [...] URINE: CLEAN CATCHIndication for culture: Dysuria/FrequencyBASIC METABOLIC [id number] 13:12:00 Test Item Value Reference Range Interpretation [...] 8.5-10.1 N UA RFLX MICR CULT IF [id number] 13:12:00 Test Item Value Reference Range Interpretation [...] URINE: CLEAN CATCHIndication for culture: Dysuria/FrequencyCBC W/AUTO [id number] 12:59:00 Test Item Value Reference Range Interpretation [...] DIFF/SCN CRITERIA MDIFF) - CT HEAD/BRAIN W/O [id number] 12:55:00 Name: LUBNA LEACH [facility] : 1965 Age/S: 54 / M [address] Unit #: [id number] Loc: [place] [address] Phys: Nito Golden MD Acct: [id number] Dis Date: Status: REG ER PHONE #: [phone] Exam Date: 08/08/2019 1230 FAX #: Reason: headache EXAMS: CPT: [id number] CT HEAD/BRAIN W/O CONT 28376 Site ID: [id number] CT head TECHNIQUE: CT [...] Armenta, RT(R)(CT) CTDI: DLP: Trnscb Date/Time: 08/08/2019 (6914) [email or web address] Orig Print D/T: S: 08/08/2019 (6948) PAGE 1 Signed ReportTROPONIN I RAPID 2019-07-01 00:13:00 Test Item Value Reference Range Interpretation Comments TROPONIN I RAPID 0.00 ng/mL 0.00-0.08 N - The use o f serial (test code = sampling and te sting TROPIRAP) protocol is a recommended pra ctice- An elevated tro ponin level alone is often not sufficient for diagnosis of my ocardial infarction. HEPATIC FUNCTION [id number] 00:11:00 Test Item Value Reference Range Interpretation [...] code = 27 Unit/L 26-192 N CK) [id number] 00:11:00 Test Item Value Reference Range Interpretation Comments LIPASE (test code = LIP) 230 Unit/L 114-286 N NT PRO-BRAIN NATRIURETIC [id number] 00:11:00 Test Item Value Reference Range Interpretation Comments NT PRO-BRAIN NATRIURETIC PEPTI 137 PG/ML 0-100 H (test code = PROBNP) CHEMISTRY 8 [id number] 00:08:00 Test Item Value Reference Range Interpretation [...] 56-130 N code = GFRBED) CHEMISTRY 8 [id number] 00:08:00 Test Item Value Reference Range Interpretation [...] code = GFRBED) - XR CHEST 1 [id number] 00:03:00 Name: LUBNA LEACH [facility] : 1965 Age/S: 54 / M [address] Unit #: [id number] Loc: [place] [address] Phys: Jethro Rosenthal MD Acct: [id number] Dis Date: Status: REG ER PHONE #: [phone] Exam Date: 06/30/2019 0000 FAX #: Reason: SOB EXAMS: CPT: [id number] XR CHEST 1 V 96236 Fluoro Time: DAP (Gy m2): Air Kerma [...] Signed Report Name: LUBNA LEACH [facility] : 1965 Age/S: 54 / M [address] [id number] Loc: [place] [address] Phys: Jethro Rosenthal MD Acct: [id number] Dis Date: Status:REG ER PHONE #: [phone] Exam Date: 06/30/2019 0000 FAX #: Reason: SOB EXAMS: CPT: [id number] XR CHEST 1 V 42463 Fluoro Time: DAP (Gy m2): Air Kerma (mGy): <Continued> Technologist: CHILO Melgoza,RVS Trnscb Date/Time: 07/01/2019 (0003) [email or web address] Orig Print D/T: S: 07/01/2019 (0007) PAGE 2 Signed ReportC W/O [id number] 23:55:00 Test Item Value Reference Range Interpretation [...] 7.0-9.6 H MPV) - XR CHEST 1 [id number] 11:34:00 Name: LUBNA LEACH [facility] : 1965 Age/S: 54 / M [address] Unit #: [id number] Loc: [place] [address] Phys: Tejas Feliciano MD Acct: [id number] Dis Date: Status: REG ER PHONE #: [phone] Exam Date: 06/26/2019 1105 FAX #: Reason: sore throat, dyspnea EXAMS: CPT: [id number] XR CHEST 1 V 77319 Fluoro Time: DAP (Gy m2): Air Kerma [...] Signed Report Name: LUBNA LEACH [facility] : 1965 Age/S: 54 / M [address] Unit #: [id number] Loc: [place] [address] Phys: Tejas Feliciano MD Acct: [id number] Dis Date: Status: REG ER PHONE #: [phone] Exam Date: 06/26/2019 1105 FAX #: Reason: sore throat, dyspnea EXAMS: CPT: [id number] XR CHEST 1 V 34112 Fluoro Time: DAP (Gy m2): Air Kerma (mGy): <Continued> Technologist: Refugio Armenta, RT(R)(CT) Trnscb Date/Time: 06/26/2019 (1132) [email or web address] Orig Print D/T: S: 06/26/2019 (2409) PAGE 2 Signed ReportCOMPREHENSIVE METABOLIC [id number] 11:27:00 Test Item Value Reference Range Interpretation [...] 50-136 H TOTAL (test code = ALKP) [id number] 11:27:00 Test Item Value Reference Range Interpretation Comments LIPASE (test code = LIP) 88 Unit/L 114-286 L CBC W/AUTO [id number] 11:09:00 Test Item Value Reference Range Interpretation [...] = NO DIFF/SCN CRITERIA MDIFF) ANTINUCLEAR ANTIBODIES [id number] 02:42:00 Test Item Value Reference Range Interpretation Comments SEAN DIRECT (test code Negative () = ANADIR) Neg ative <1:80 Borderline 1:8 0 Positive >1:80Performed At: [facility] [address] [place], [place] [id number] ivan Womack MD Ph:[phone] ACUTE HEPATITIS [id number] 02:42:00 Test Item Value Reference Range Interpretation Comments AB HEPATITIS A IGM NON REACTIVE NON REACT. Testing d one at (test code = INDEX CLEAR HOOKS [place] ONAL HAVMAB) [facility] [address] [place] [address] 044718 AB HEPATITIS B <3.1 mIU/mL Immunity>9.9 A Status of SURFACE (test code Immunity = HBSAB) Anti-H Bs Level --- I ncon sistent with Immunity 0.0 - 9.9Consistent w ith Immunity >9.9Performed A t: [facility] [address] [place], [place] [id number] Kyle L MD Ph:[phone] ST PERFORMED AT [facility] [address] [place], [place] [address] AG HEPATITIS B NON REACTIVE NonReactive Testing done at SURFACE (test code INDEX CLEAR [place]AL = HBSAG) [facility] [address] [place] [address] 469478 AB HEPATITIS B NON REACTIVE NON REACT. Testing done at CORE IGM (test INDEX CLEAR HOOKS RE GIONAL code = HBCMAB) [facility] [address] [place] [address] 269038 AB HEPATITIS C REACTIVE INDEX NON REACT. A Testing don e at (test code = CLEAR HOOKS [place] ONAL HCVAB) [facility] [address] [place] [address] 900588 AB [id number] 02:42:00 Test Item Value Reference Range Interpretation Comments AB <20.0 Units 0.0-20.0 ANTI-MITOCHONDRIAL Ne gative 0.0 - (test code = 20.0 MITOAB) Equi vocal 20.1 - 24.9 Positive >24.9Mitochondr ial (M2) Antibodies are found in 90-96% ofpatien ts with primary biliary cirrhosis.Perfo rmed At: [facility] [id number] ra Ev GOMEZ Ph:[phone] ANTINUCLEAR ANTIBODIES [id number] 16:45:00 Test Item Value Reference Range Interpretation Comments SEAN DIRECT (test code Negative () = ANADIR) Neg ative <1:80 Borderline 1:8 0 Positive >1:80Performed At: [facility] [address] [id number] ivan Womack MD Ph:[phone] ACUTE HEPATITIS [id number] 16:45:00 Test Item Value Reference Range Interpretation Comments AB HEPATITIS A IGM NON REACTIVE NON REACT. Testing d one at (test code = INDEX CLEAR [place]OO[place] ONAL HAVMAB) [facility] [address] [place] [address] AB HEPATITIS B <3.1 mIU/mL Immunity>9.9 A Status of SURFACE (test code Immunity = HBSAB) Anti-H Bs Level --- I ncon sistent with Immunity 0.0 - 9.9Consistent w ith Immunity >9.9Performed A t: [facility] [id number] Kyle L MD Ph:[phone] ST PERFORMED AT [facility] [address] [place], [place] [address] AG HEPATITIS B NON REACTIVE NonReactive Testing done at SURFACE (test code INDEX [place] [place] = HBSAG) [facility] [address] [place] [address] AB HEPATITIS B NON REACTIVE NON REACT. Testing done at CORE IGM (test INDEX CLEAR HOOKS RE GIONAL code = HBCMAB) [facility] [address] [place] [address] AB HEPATITIS C REACTIVE INDEX NON REACT. A Testing don e at (test code = CLEAR HOOKS [place] ONAL HCVAB) [facility] [address] [place] [address] AB [id number] 16:45:00 Test Item Value Reference Range Interpretation Comments AB ANTI-MITOCHONDRIAL (test code = Units 0.0-20.0 MITOAB) [id number] 21:51:00 Test Item Value Reference Range Interpretation Comments GLUBED (test code = GLUBED) 168 mg/dL 70-110 H [id number] 15:58:00 Test Item Value Reference Range Interpretation Comments GLUBED (test code = GLUBED) 168 mg/dL 70-110 H [id number] 07:22:00 Test Item Value Reference Range Interpretation Comments GLUBED (test code = GLUBED) 113 mg/dL 70-110 H CBC W/AUTO [id number] 06:46:00 Test Item Value Reference Range Interpretation [...] BA#) 0.1 K/mm3 0.0-0.2 N COMPREHENSIVE METABOLIC [id number] 06:12:00 Test Item Value Reference Range Interpretation [...] 158 Units/L 50.0-136.0 H code = ALKP) [id number] 06:12:00 Test Item Value Reference Range Interpretation Comments MAGNESIUM (test code = MAG) 2.0 mg/dl 1.8-2.4 N [id number] 23:47:00 Test Item Value Reference Range Interpretation Comments GLUBED (test code = GLUBED) 179 mg/dL 70-110 H ANTINUCLEAR ANTIBODIES [id number] 16:47:00 Test Item Value Reference Range Interpretation Comments SEAN DIRECT (test code = ANADIR) NEGATIVE ACUTE HEPATITIS [id number] 16:47:00 Test Item Value Reference Range Interpretation Comments AB HEPATITIS A IGM NON REACTIVE NON REACT. Testing d one at (test code = INDEX CLEAR HOOKS [place] ONAL HAVMAB) [facility] [address] [place] [address]. [place] [address] AB HEPATITIS B mIU/mL Immune >9.9 SURFACE (test code = HBSAB) AG HEPATITIS B NON REACTIVE NonReactive Testing done at SURFACE (test code INDEX CLEAR [place] = HBSAG) [facility] [address] [place] [address], [place] [address] AB HEPATITIS B NON REACTIVE NON REACT. Testing done at CORE IGM (test INDEX CLEAR HOOKS RE GIONAL code = HBCMAB) [facility] [address] [place] [address], [place] [address] AB HEPATITIS C REACTIVE INDEX NON REACT. A Testing don e at (test code = CLEAR HOOKS [place] ONAL HCVAB) [facility] [address] [place] [address]. [facility] [place] [address] AB [id number] 16:47:00 Test Item Value Reference Range Interpretation Comments AB ANTI-MITOCHONDRIAL (test code = Units 0.0-20.0 MITOAB) AB HEPATITIS A [id number] 16:41:00 Test Item Value Reference Range Interpretation Comments AB HEPATITIS A IGM (test NON REACTIVE INDEX NON REACT. code = HAVMAB) AG HEPATITIS B [id number] 16:41:00 Test Item Value Reference Range Interpretation Comments AG HEPATITIS B SURFACE NON REACTIVE INDEX NonReactive (test code = HBSAG) AB HEPATITIS B CORE [id number] 16:41:00 Test Item Value Reference Range Interpretation Comments AB HEPATITIS B CORE IGM NON REACTIVE INDEX NON REACT. (test code = HBCMAB) AB HEPATITIS [id number] 16:41:00 Test Item Value Reference Range Interpretation Comments AB HEPATITIS C (test code = REACTIVE INDEX NON REACT. A HCVAB) [id number] 16:40:00 Test Item Value Reference Range Interpretation Comments GLUBED (test code = GLUBED) 167 mg/dL 70-110 H [id number] 13:52:00 Test Item Value Reference Range Interpretation Comments GLUBED (test code = GLUBED) 139 mg/dL 70-110 H VITAMIN [id number] 13:03:00 Test Item Value Reference Range Interpretation Comments VITAMIN B12 (test code = VITB12) 697 pg/mL 193-986 N THYROID STIMULATING [id number] 13:03:00 Test Item Value Reference Range Interpretation Comments THYROID STIMULATING 1.83 IU/ML 0.47-5.01 N Result i s in HORMONE (test code = Interna tional TSH) Units/millilite r [id number] 12:40:00 Test Item Value Reference Range Interpretation Comments HGBA1C% (test code = HGBA1C%) 6.4 %A1C 4.8-6.0 H ESTIMATED AVERAGE GLUCOSE (test 137 MG/DL code = EAG) - US ABDOMEN [id number] 12:20:00 FAX: Beto Urias [phone] [place]: St: [facility] FAX: Leslie Larsen [phone] Name: LUBNA LEACH [facility] : 1965 Age/S: 54/M [address] [facility] Unit #: [id number] Loc: [place], [place] Phys: Gael Garcia [address] Acct: [id number] Dis Date: Status: ADM IN PHONE #: [phone] Exam Date: 05/16/2019 1046 FAX #: [phone] Reason: Elevated LFT Report Has Been Amended EXAMS: CPT CODE: [id number] US ABDOMEN LTD 58357 Addendum - 05/16/2019 SIGNED 05/16/2019 ADDENDUM: [id number] US/USABDLTD Addendum: A typographical air occurred described [...] 1 Signed Report (CONTINUED) FAX: Beto Urias [phone] [place]: St: ADM FAX: Gael Larsen [phone] Name: LUBNA LEACH [facility] : 1965 Age/S: 54/M [address] [facility] Unit #: [id number] Loc: [place], [place] Phys: Gael Garcia [address] Acct: [id number] Dis Date: Status: ADM IN PHONE #: [phone] Exam Date: 05/16/2019 1046 FAX #: [phone] Reason: Elevated LFT Report Has Been Amended EXAMS: CPT CODE: [id number] US ABDOMEN LTD [address]9311 <Continued> Impression: No acute abnormality in the [...] HU Trnscrd Date/Time/By: 05/16/2019 (1108) : By: [facility] PAGE 2 Signed Report FAX: Beto Urias [phone] [place]: St: ADM FAX: Gael aLrsen [phone] Name: LUBNA LEACH [facility] : 1965 Age/S: 54[facility] Unit #: [id number] Loc: [place], [place] Phys: Gael Garcia [address] Acct: [id number] Dis Date: Status: ADM IN PHONE #: [phone] Exam Date: 05/16/2019 1046 FAX #: [phone] Reason: Elevated LFT Report Has Been Amended EXAMS: CPT CODE: [id number] US ABDOMEN LTD [address]5923 <Continued> Orig Print D/T: S: 05/16/2019 (1112) PAGE 3 Signed Report- US ABDOMEN [id number] 11:08:00 FAX: Beto Urias [phone] [place]: St: ADM FAX: Leslie Larsen [phone] Name: LUBNA LEACH [facility] : 1965 Age/S: 54/M [address] [place] [address] Unit #: [id number] Loc: [place], [place] Phys: Gael Garcia [address] Acct: [id number] Dis Date: Status: ADM IN PHONE #: [phone] Exam Date: 05/16/2019 1046 FAX #: [phone] Reason: Elevated LFT EXAMS: CPT CODE: [id number] US ABDOMEN LTD [id number] ULTRASOUND:- US ABDOMEN LTD History: Elevated liver [...] MD; Gael BARRAZA Technologist: CARLOS ALBERTO HU Trninrd Date/Time/By: 05/16/2019 (1889) : By: [facility] PAGE [facility] Signed Report FAX: Beto Urias [phone] [place]: St: [facility] FAX: Gael Larsen [phone] Name: LUBNA LEACH [facility] : 1965 Age/S: 54/M [address] [facility] Unit #: [id number] Loc: [place], [place] Phys: Gael Garcia [id number] Acct: [id number] Dis Date: Status: ADM IN PHONE #: [phone] Exam Date: 05/16/2019 1046 FAX #: [phone] Reason: Elevated LFT EXAMS: CPT CODE: [id number] US ABDOMEN LTD 47254 <Continued> Orig Print D/T: S: 05/16/2019 (2212) PAGE 2 Signed [id number] 07:18:00 Test Item Value Reference Range Interpretation Comments AMMONIA (test code = AMM) 9.5 MCMOL/L 11.0-32.0 L No sample received in the lab. Please collect if deemednecessary.Thank you!Lab DRUGS OF ABUSE SCREEN [id number] 06:29:00 Test Item Value Reference Interpretation Comments [...] [place]) concentrati on: 300 ng/mL CBC W/MANUAL [id number] 05:08:00 Test Item Value Reference Range Interpretation [...] MORPHOLOGY (test code NORMAL = PLTMORPH) PROTHROMBIN [id number] 01:10:00 Test Item Value Reference Range Interpretation Comments PROTHROMBIN TIME 12.6 SECONDS 9.9-12.8 N PATIENT (test code = PTP) INTERNATIONAL NORMAL 1.1 0.89-1.14 N THE INR IS TO BE USED RATIO (test code = ONLY FOR MONITORING INR) ORAL ANTICOAGULANTTH ERAPY. THE FOLLOWING A RE SUGGESTED RANGE S FROM [facility] LEGE OF CHEST PHYSICIANS:ANGELA CATION INR [...] 3 .5 Specimen comments: Clean CatchTHROMBOPLASTIN TIME [id number] 01:10:00 Test Item Value Reference Range Interpretation Comments THROMBOPLASTIN TIME 33.50 SECONDS 25.86-36.07 N [place] d Lab PARTIAL (test code = Therape utic Range - PTT) APTT of 55.8-85 .4 secondscorrelat es with plasma heparin concentration o f 0.2-0.4 u/mL Ne w range effective - Specimen comments: Clean CatchBASIC METABOLIC [id number] 01:09:00 Test Item Value Reference Range Interpretation [...] N Specimen comments: Clean CatchHEPATIC FUNCTION PANEL [id number] 01:09:00 Test Item Value Reference Range Interpretation [...] H code = ALKP) Specimen comments: Clean [id number] 01:09:00 Test Item Value Reference Range Interpretation Comments LIPASE (test code = 560 Units/L 65.0-230.0 H 2+ LIPEM IC SAMPLE. LIP) Specimen comments: Clean CatchB-TYPE NATRIURETIC [id number] 01:09:00 Test Item Value Reference Range Interpretation Comments B-TYPE NATRIURETIC PEPTIDE (test 33 PG/ML 5-100 N code = BNP) Specimen comments: Clean CatchBASIC METABOLIC [id number] 00:59:00 Test Item Value Reference Range Interpretation [...] CA) 8.0 mg/dl 8.0-10.5 N Specimen comments: Retail SolutionsHEPATIC FUNCTION PANEL [id number] 00:59:00 Test Item Value Reference Range Interpretation [...] 50.0-136.0 H code = ALKP) Specimen comments: Retail [id number] 00:59:00 Test Item Value Reference Range Interpretation Comments LIPASE (test code = 560 Units/L 65.0-230.0 H 2+ LIPEM IC SAMPLE. LIP) Specimen comments: Retail SolutionsB-TYPE NATRIURETIC [id number] 00:59:00 Test Item Value Reference Range Interpretation Comments B-TYPE NATRIURETIC PEPTIDE (test code PG/ML 5-100 = BNP) Specimen comments: Clean CatchBASIC METABOLIC [id number] 00:54:00 Test Item Value Reference Range Interpretation [...] 8.0-10.5 Specimen comments: Clean CatchHEPATIC FUNCTION PANEL [id number] 00:54:00 Test Item Value Reference Range Interpretation [...] 50.0-136.0 code = ALKP) Specimen comments: Clean [id number] 00:54:00 Test Item Value Reference Range Interpretation Comments LIPASE (test code = LIP) Units/L 65.0-230.0 Specimen comments: Clean CatchB-TYPE NATRIURETIC [id number] 00:54:00 Test Item Value Reference Range Interpretation Comments B-TYPE NATRIURETIC PEPTIDE (test code PG/ML 5-100 = BNP) Specimen comments: Clean CatchURINALYSIS [id number] 00:52:00 Test Item Value Reference Range Interpretation [...] NONE BACU) Specimen comments: Clean CatchCBC W/MANUAL [id number] 00:46:00 Test Item Value Reference Range Interpretation [...] code = LYMPH) % 20-40 CBC W/MANUAL [id number] 00:46:00 Test Item Value Reference Range Interpretation [...] (test code = LYMPH) % 20-40 URINALYSIS [id number] 00:45:00 Test Item Value Reference Range Interpretation [...] comments: Clean Catch- CT ABD PELVIS W/O [id number] 23:43:00 FAX: Nathan Prince MD [place]: St: REG Name: LUBNA LEACH [facility] : 1965 Age/S: 54/M [address] [facility] Unit: [id number] Loc: [address] Phys: [place] [address] Acct: [id number] Dis Date: Status: REG ER PHONE #: [phone] Exam Date: 05/15/2019 2316 FAX #: [phone] Reason: ruq pain EXAMS: CPT CODE: [id number] CT ABD PELVIS W/O CONT 25055 CLINICAL HISTORY: Right upper quadrant abdominal pain,shortness [...] Signed Report (CONTINUED) FAX: Nathan Prince MD [place]: St: REG Name: LUBNA LEACH [facility] : 1965 Age/S: 54/M [address] [facility] Unit: [id number] Loc: [address] [place], [place]: [place] [address] Acct: [id number] Dis Date: Status: REG ER PHONE #: [phone] Exam Date: 05/15/2019 2316 FAX #: [phone] Reason: ruq pain EXAMS: CPT CODE: [id number] CT ABD PELVIS W/O CONT 22397 <Continued> This exam was performed according to ourdepartmental dose-optimization program, which includes automated exposure control, adjustment of the mA and/or kV according to patient size and/or use of iterative reconstruction technique at 3043 Reported and signed by: Lennox Purvis M.D. CC: Nathan Prince MD Technologist: STANTON LIZ Trnscrd Dt/Tm: 05/15/2019 (7668) [email or web address] Orig Print D/T: S: 05/15/2019 (3956 PAGE 2 Signed Report- XR CHEST 2 [id number] 23:29:00 FAX: Nathan Prince MD [place]: St: REG Name: LUBNA LEACH [facility] : 1965 Age/S: 54/M [address] [facility] Unit#: [id number] Loc: [address]ERS[address] [place], [place] Phys: [place] [address] Acct: [id number] Dis Date: Status: REG ER PHONE #: [phone] Exam Date: 05/15/20190 FAX #: [phone] Reason: sob EXAMS: CPT CODE: [id number] XR CHEST 2 V 80848 EXAM: - XR CHEST 2 V HISTORY: Shortness of breath. COMPARISON: April 17, 2018. FINDINGS: PA and lateral view of the chest is provided. Heart size and vascularity are within normal limits. There is no focal consolidation. No effusion, pneumothorax, or acute osseous abnormality. IMPRESSION: No consolidation or pleural effusion. at 8052 Reported and signed by: Choco Wells M.D. CC: Nathan Prince MD Technologist: TOO JIMENEZ Trninrd Date/Time/By: 05/15/2019 (4377) : By: [email or web address] PAGE 1 Signed Report FAX: Nathan Prince MD [place]: St: REG -- Name: LUBNA LEACH [facility] : 1965 Age/S: 54/M [address] [facility] Unit #: [id number] Loc: [address] Phys: [place] [address] Acct: [id number] Dis Date: Status: REG ER PHONE #: [phone] Exam Date: 05/15/2019 2320 FAX #: [phone] Reason: sob EXAMS: CPT CODE: [id number] XR CHEST 2 V 93362 <Continued> Orig Print D/T: S: 05/15/2019 (0813) PAGE 2 Signed Report
[2022-04-29] MEDS ORDERED: ASPIRIN 81 MG CHEWABLE TABLET ONE (18:51)
[2022-04-29 19:19] LABS: Hematocrit 41.6 % (39.6-49.0); Lymphocytes % 33.9 % (15.3-44.8); MPV 10.5 fL (7.6-11.3); RBC Red Blood Cell Count 4.46 M/uL (4.33-5.43)
[2022-04-29 19:21] LABS: Protime INR 1.1
[2022-04-29 19:34] LABS: Albumin 2.9 g/dL (3.4-5.0); Bilirubin Direct 0.4 mg/dL (0-0.2); Bilirubin Total 0.7 mg/dL (0.2-1.0); Magnesium 1.9 mg/dL (1.8-2.4); Potassium 4.3 mmol/L (3.5-5.1); Protein, Total 6.5 g/dL (6.4-8.2); Troponin High Sensitivity 6.4 pg/mL (<58.9)
--- NOTE | 2022-04-29 20:06 | RAD REPORT ---
EXAM DESCRIPTION: RAD - Chest Single View - 04/29/2022 7:47 pm CLINICAL HISTORY: DYSPNEA COMPARISON: Chest Single View dated 04/18/2022; Chest Single View dated 09/19/2021; Chest Single View dated 06/04/2021; Chest Single View dated 06/11/2020 FINDINGS: Lines: None. Lungs: No evidence of edema or pneumonia. Pleural: No significant pleural effusions or pneumothorax. Cardiac: The heart size is within normal limits. Bones: No acute fractures. Other: IMPRESSION: No acute cardiopulmonary disease.
[2022-04-29] MEDS ORDERED: FUROSEMIDE 20 MG/ 2ML VIAL ONE (20:08)
--- NOTE | 2022-04-29 20:55 | EDPHYS ---
Physician Documentation [facility] Name: Huber Augustine Age: 57 yrs Sex: Male : 1965 Arrival Date: 04/29/2022 Time: 17:52 Bed 16 Private MD: ED Physician Zelda Cobb HPI: 04/29 18:15 This 57 yrs old Male presents to ER via EMS with complaints of shortness of breath, jh7 feet swelling. 18:15 Patient reports shortness of breath and bilateral ankle and foot swelling. States that jh7 he was told that he had CHF and was discharged from this hospital 1 week ago. Reports that he never filled his Lasix. Has a history of diabetes, neuropathy, hep C, and cirrhosis of the liver. Denies any chest pain.. Historical: - Allergies: 18:11 opioids; jd3 - Home Meds: 18:11 gabapentin 300 mg oral cap 1 cap 3 times per day [Active]; trazodone 150 mg Oral tab 1 jd3 tab nightly [Active]; divalproex 500 mg oral Tb24 1 tab twice a day [Active]; buspirone 10 mg Oral tab 1 tab 2 times per day [Active]; metformin 500 mg Oral tab 1 tab daily [Active]; lisinopril 5 mg Oral tab 1 tab daily [Active]; - PMHx: 18:11 Anxiety; Bipolar disorder; diabetes mellitus; Hypertensive disorder; neuropathy; CHF; jd3 - PSHx: 18:11 Cholecystectomy; Tonsillectomy; jd3 - Immunization history:: Adult Immunizations up to date, unknown Flu vaccine is up to date. - Social history:: Smoking status: Patient reports the use of cigarette tobacco products, denies chronic smoking, but will smoke occasionally, cigars. ROS: 18:15 Constitutional: Negative for fever, chills, and weight loss, Neck: Negative for injury, jh7 pain, and swelling, Cardiovascular: Negative for chest pain, palpitations, and edema, Abdomen/GI: Negative for abdominal pain, nausea, vomiting, diarrhea, and constipation, Back: Negative for injury and pain, Skin: Negative for injury, rash, and discoloration, Neuro: Negative for headache, weakness, numbness, tingling, and seizure. 18:15 Respiratory: Positive for orthopnea, shortness of breath, Negative for cough, wheezing. 18:15 MS/extremity: Positive for pain, swelling, Negative for decreased range of motion, ecchymosis, erythema. 18:15 All other systems are negative. Exam: 18:15 Constitutional: This is a well developed, well nourished patient who is awake, alert, jh7 and in no acute distress. Neck: Trachea midline, no thyromegaly or masses palpated, and no cervical lymphadenopathy. Supple, full range of motion without nuchal rigidity, or vertebral point tenderness. No Meningismus. Cardiovascular: Regular rate and rhythm with a normal S1 and S2. No gallops, murmurs, or rubs. Normal PMI, no JVD. No pulse deficits. Respiratory: Lungs have equal breath sounds bilaterally, clear to auscultation and percussion. No rales, rhonchi or wheezes noted. No increased work of breathing, no retractions or nasal flaring. Abdomen/GI: Soft, non-tender, with normal bowel sounds. No distension or tympany. No guarding or rebound. No evidence of tenderness throughout. Back: No spinal tenderness. No costovertebral tenderness. Full range of motion. Skin: Warm, dry with normal turgor. Normal color with no rashes, no lesions, and no evidence of cellulitis. Neuro: Awake and alert, GCS 15, oriented to person, place, time, and situation. Motor strength 5/5 in all extremities. Sensory grossly intact. Cerebellar exam normal. 18:15 Cardiovascular: Rate: normal, Rhythm: regular, Pulses: Pulses are 3+ in . Edema: 2+ edema to level of left ankle, left foot, right ankle and right foot. Vital Signs: 18:11 BP 116 / 73; Pulse 81; Resp 18 S; Temp 98.9(TE); Pulse Ox 99% on R/A; Weight 90.72 kg jd3 (R); Height 6 ft. 0 in. (182.88 cm) (R); Pain 5/10; 19:30 BP 122 / 68; Pulse 68; Resp 16 S; Pulse Ox 100% on R/A; bb 21:16 BP 101 / 71; Pulse 68; Resp 16 S; Temp 98(O); Pulse Ox 95% on R/A; bb 18:11 Body Mass Index 27.12 (90.72 kg, 182.88 cm) jd3 MDM: 18:[address] [facility] 22:35 Data reviewed: vital signs, nurses notes, lab test result(s), EKG, radiologic studies, [facility] plain films. Data interpreted: Pulse oximetry: is 95 %. Interpretation: normal. 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 Response to treatment: the patient's symptoms have mildly improved after treatment. ED course: The patient states that he never filled his Lasix. Wrote him another prescription for Lasix and strongly advised him to fill it. Also advised cardiology follow-up. The patient symptoms improved after Lasix was given in the ER. Discussed his labs, EKG, and x-ray results. The patient states that he felt much better and understood the plan of care.. 04/29 18:37 Order name: Basic Metabolic Panel; Complete Time: 19:56 [facility] 04/29 18:37 Order name: CBC with Diff; Complete Time: 19:56 [facility] 04/29 18:37 Order name: D-Dimer; Complete Time: 19:56 [facility] 04/29 18:37 Order name: LFT's; Complete Time: 19:56 [facility] 04/29 18:37 Order name: Magnesium; Complete Time: 19:56 [facility] 04/29 18:37 Order name: NT PRO-BNP; Complete Time: 19:36 [facility] 04/29 18:37 Order name: PT-INR; Complete Time: 19:56 [facility] 04/29 18:37 Order name: Troponin HS; Complete Time: 19:56 [facility] 04/29 18:37 Order name: XRAY Chest (1 view); Complete Time: 20:28 [facility] 04/29 18:37 Order name: EKG; Complete Time: 18:38 [facility] 04/29 18:37 Order name: Cardiac monitoring; Complete Time: 18:39 [facility] 04/29 18:37 Order name: EKG - Nurse/Tech; Complete Time: 18:39 [facility] 04/29 18:37 Order name: IV Saline Lock; Complete Time: 18:53 [facility] 04/29 18:37 Order name: Labs collected and sent; Complete Time: 18:53 [facility] 04/29 18:37 Order name: O2 Per Protocol; Complete Time: 18:39 [facility] 04/29 18:37 Order name: O2 Sat Monitoring; Complete Time: 18:39 [facility] Administered Medications: 18:48 Drug: Aspirin Chewable Tablet 324 mg Route: PO; jd3 20:07 Drug: Lasix (furosemide) 20 mg Route: IVP; Site: right antecubital; bb 21:00 Follow up: Response: No adverse reaction bb Disposition: 04/30 18:02 Co-signature as Attending Physician, Zelda Cobb MD. ma2 Disposition Summary: 04/29/22 20:55 Discharge Ordered Location: Home [facility] Problem: an ongoing problem [facility] Symptoms: have improved [facility] Condition: Stable [facility] Diagnosis - Localized edema [facility] - Shortness of breath [facility] - CHF [facility] Followup: [facility] - With: Private Physician - When: 2 - 3 days - Reason: Recheck today's complaints Discharge Instructions: - Discharge Summary Sheet [facility] - Edema [facility] - Shortness of Breath, Adult [facility] - Peripheral Edema [facility] Forms: - Medication Reconciliation Form [facility] - Thank You Letter [facility] Prescriptions: - Lasix 40 mg Oral Tablet - take 1 tablet by ORAL route once daily for 30 days; 30 tablet; Refills: 0, jh7 Product Selection Permitted Signatures: Dispatcher [employer] Angie Knott RN RN bb Duarte Gonzalez, GREER-C LARD TUB WASHER-Luis Armando Arias RN RN jd3 Alzahri, Mohammad, MD MD ma2 Linda Etienne FNP [place] [address] Corrections: (The following items were deleted from the chart) 04/29 18:14 18:11 Allergies: narcotics; jd3 jd3
--- NOTE | 2022-04-29 20:55 | ER ---
Nurse's Notes [facility] Name: Huber Augustine Age: 57 yrs Sex: Male : 1965 Arrival Date: 04/29/2022 Time: 17:52 Bed 16 Private MD: Diagnosis: Localized edema;Shortness of breath;CHF Presentation: 04/29 18:07 Chief complaint: EMS states: "pt is reporting shortness of breath that started a couple jd3 of days ago. he also reports a possible recent diagnosis of CHF. he is also reporting pain to his SHABNAM feet and they are noted to be swollen up through his ankles.". Coronavirus screen: At this time, the client does not indicate any symptoms associated with coronavirus-19. Ebola Screen: No symptoms or risks identified at this time. Initial Sepsis Screen: Does the patient meet any 2 criteria? No. Patient's initial sepsis screen is negative. Does the patient have a suspected source of infection? No. Patient's initial sepsis screen is negative. Risk Assessment: Do you want to hurt yourself or someone else? Patient reports no desire to harm self or others. Onset of symptoms was April 27, 2022. 18:07 Method Of Arrival: EMS: [facility] jd3 18:07 Acuity: ROSALEE 3 jd3 Historical: - Allergies: 18:11 opioids; jd3 - Home Meds: 18:11 gabapentin 300 mg oral cap 1 cap 3 times per day [Active]; trazodone 150 mg Oral tab 1 jd3 tab nightly [Active]; divalproex 500 mg oral Tb24 1 tab twice a day [Active]; buspirone 10 mg Oral tab 1 tab 2 times per day [Active]; metformin 500 mg Oral tab 1 tab daily [Active]; lisinopril 5 mg Oral tab 1 tab daily [Active]; - PMHx: 18:11 Anxiety; Bipolar disorder; diabetes mellitus; Hypertensive disorder; neuropathy; CHF; jd3 - PSHx: 18:11 Cholecystectomy; Tonsillectomy; jd3 - Immunization history:: Adult Immunizations up to date, unknown Flu vaccine is up to date. - Social history:: Smoking status: Patient reports the use of cigarette tobacco products, denies chronic smoking, but will smoke occasionally, cigars. Screenin:18 Abuse screen: Denies threats or abuse. Nutritional screening: No deficits noted. jd3 Tuberculosis screening: No symptoms or risk factors identified. Fall Risk Ambulatory Aid- None/Bed Rest/Nurse Assist (0 pts). Gait- Normal/Bed Rest/Wheelchair (0 pts) Mental Status- Oriented to own ability (0 pts). Total Michael Fall Scale indicates No Risk (0-24 pts). Assessment: 18:15 General: Appears in no apparent distress. uncomfortable, Behavior is calm, cooperative, jd3 appropriate for age. Pain: Complains of pain in right foot and left foot Quality of pain is described as pressure, tender. Neuro: Aparicio Agitation-Sedation Scale (RASS): 0 - Alert and Calm Level of Consciousness is awake, alert, obeys commands, Oriented to person, place, time, situation. Cardiovascular: Capillary refill < 3 seconds Patient's skin is warm and dry. Respiratory: Reports shortness of breath at rest Airway is patent Respiratory effort is even, unlabored, Respiratory pattern is regular, symmetrical, the patient has mild shortness of breath. GI: No signs and/or symptoms were reported involving the gastrointestinal system. : No signs and/or symptoms were reported regarding the genitourinary system. EENT: No signs and/or symptoms were reported regarding the EENT system. Derm: Skin is intact, Skin is dry, Skin is normal, Skin temperature is warm. Musculoskeletal: Circulation, motion, and sensation intact. Range of motion: intact in all extremities, Swelling present in right foot, left foot, right ankle and left ankle. 19:29 Reassessment: No changes from previously documented assessment. Patient is alert, bb oriented x 3, equal unlabored respirations, skin warm/dry/pink. pt awaiting diagnostic results. 21:15 Reassessment: Patient is alert, oriented x 3, equal unlabored respirations, skin bb warm/dry/pink. pt instructed on community resources and given hand-out. Pt verbalized understanding of and agrees to plan of care discharge instructions given pt ambulated with steady gait to exit. Vital Signs: 18:11 BP 116 / 73; Pulse 81; Resp 18 S; Temp 98.9(TE); Pulse Ox 99% on R/A; Weight 90.72 kg jd3 (R); Height 6 ft. 0 in. (182.88 cm) (R); Pain 5/10; 19:30 BP 122 / 68; Pulse 68; Resp 16 S; Pulse Ox 100% on R/A; bb 21:16 BP 101 / 71; Pulse 68; Resp 16 S; Temp 98(O); Pulse Ox 95% on R/A; bb 18:11 Body Mass Index 27.12 (90.72 kg, 182.88 cm) jd3 ED Course: 17:52 Patient arrived in ED. jl7 17:53 Luis Armando Coy, RN is Primary Nurse. jd3 18:11 Triage completed. jd3 18:15 Arm band placed on. EKG completed in triage. Results shown to MD. jd3 18:18 Patient has correct armband on for positive identification. Bed in low position. Call j light in reach. Side rails up X2. Adult w/ patient. Client placed on continuous cardiac and pulse oximetry monitoring. NIBP monitoring applied. color television console monitor on. Pulse ox on. NIBP on. 18:28 Linda Etienne FNP is [facility] 18:28 Zelda Cobb MD is Attending Physician. [facility] 18:53 Inserted saline lock: 18 gauge in right antecubital area, using aseptic technique. zm Blood collected. 18:53 Basic Metabolic Panel Sent. zm 18:53 CBC with Diff Sent. zm 18:53 D-Dimer Sent. zm 18:53 LFT's Sent. zm 18:53 Magnesium Sent. zm 18:53 NT PRO-BNP Sent. zm 18:53 PT-INR Sent. zm 18:53 Troponin HS Sent. zm 19:14 Primary Nurse role handed off by Luis Armando Coy RN mw2 19:48 XRAY Chest (1 view) In Process Unspecified. EDMS 21:14 Angie Llanos, CHANELLE is Primary Nurse. bb 21:16 No provider procedures requiring assistance completed. IV discontinued, intact, bb bleeding controlled, No redness/swelling at site. Pressure dressing applied. Administered Medications: 18:48 Drug: Aspirin Chewable Tablet 324 mg Route: PO; jd3 20:07 Drug: Lasix (furosemide) 20 mg Route: IVP; Site: right antecubital; bb 21:00 Follow up: Response: No adverse reaction bb Medication: 18:18 VIS not applicable for this client. jd3 Output: 20:07 Urine: 450ml (Voided); Total: 450ml. bb 21:17 Urine: 525ml (Voided); Total: 975ml. bb Outcome: 20:55 Discharge ordered by MD. nolan 21:16 Discharged to home ambulatory. bb 21:16 Condition: stable 21:16 Discharge instructions given to patient, Instructed on discharge instructions, follow up and referral plans. medication usage, Demonstrated understanding of instructions, follow-up care, medications, Prescriptions given X 1. 21:17 Patient left the ED. bb Signatures: Dispatcher [employer] EDMS Angie Llanos RN RN Delfina Starr RN RN jl7 Luis Armando Coy RN RN jDiane Huffman 2 Norma Zheng Jennifer, FNP FNP jh7 Corrections: (The following items were deleted from the chart) 18:14 18:11 Allergies: narcotics; jd3 jd3
[2022-04-29 22:01] VITALS: BP 101/71; TEMP 98; O2SAT 95
--- NOTE | 2022-04-30 19:17 | EKG ---
Test Date: 2022-04-29 Test Time: 18:17:56 Lead Software Development Engineer: DENTON MEASUREMENT RESULTS: Intervals: Rate: 72 WV: 150 QRSD: 92 QT: 396 QTc: 433 [place]: P: 62 WV: 150 QRS: 16 T: 25 INTERPRETIVE STATEMENTS: Normal sinus rhythm Inferior infarct, age undetermined Possible Anterior infarct, age undetermined Abnormal ECG Compared to ECG 04/18/2022 00:15:24 Sinus bradycardia no longer present Myocardial infarct finding still present Electronically Signed On 04-30-22 19:15:26 CDT by Bola Somers
== END 2022-04-29 21:17 | disposition home or self-care (01) ==
LOC: ER 17:49
DX: R06.02 Shortness of breath (principal); R60.0 Localized edema; I50.9 Heart failure, unspecified; I10 Essential (primary) hypertension; E11.9 Type 2 diabetes mellitus without complications; Z72.0 Tobacco use; Z88.5 Allergy status to narcotic agent
CPT/HCPCS: 93005; 85025; 80048; 36415; 83735; 85610; 85379; 80076; 84484; 83880; 71045; 96374; 99284; J1940

== ENCOUNTER 2022-04-30 15:03 | Emergency (ER) | payer OTHER ==
--- OUTSIDE RECORDS SUMMARY | 2022-04-30 15:07 | XMS REPORT | Continuity of Care Document ---
:1965 Author Organization [facility] t Address [address] [place] [address] Care Team Providers Name Role Phone Dylon [...] Date Date Clinician morphine DA Active [place] REDNESS/ITCH HC A ING TO AREA 5-26 Maryuri an OF INJECTION 00:00: d 00 [facility] morphine DA Active [place] 2018-0 [facility] 8-27 [place] 00:00: d 00 [facility] morphine DA Active [place] REDNESS/ITCH 2018-0 HC A ING TO AREA 8-27 Maryuri an OF INJECTION 00:00: d 00 [facility] No Known DA Active U 2017- [facility] Allergie 6-13 Pearlan s 00:00: d 00 [facility] Medications This patient has no known medications. Procedures This patient has no known procedures. Encounters Start End Encounter Admission Attending Care Care Encounter Source Date/Time Date/Time Type Type Clinicians Facility Department ID 2020-09-07 Inpatient HCAPM NELIDA [id number] [facility] 20:04:00 [facility] 2020-01-10 Inpatient HCAPM NELIDA [id number] [facility] 11:42:00 [facility] 2019-11-22 Inpatient HCAPM NELIDA [id number] [facility] 08:41:00 [id number] [facility] 2019-05-12 Inpatient E MHBL MED 7500 MHB L 23:36:00 2022-03-30 2022-03-31 Emergency EM Dylon, HCAPM NELIDA [id number] [facility] 23:17:00 15:23:00 Jethro 58 [facility] 2022-03-30 2022-03-31 Emergency EM Dylon, HCAPM HCAPM [id number] [facility] 23:17:00 15:23:00 Jethro [id number] [facility] 2021-05-19 2021-05-19 Emergency E CONSUELO, MHBL MHBL 7503 MHBL 12:33:00 17:33:00 EMI 2019-11-11 2019-11-11 Emergency E MHSE MHSE 7502 MH 18:37:00 18:37:00 [facility] 2019-10-19 2019-10-19 Emergency E MHSE MHSE 7501 10:27:00 10:27:00 [facility] Results Test Description Test Time Test Comments Results Result Comments Source COVID 19 Asymptomatic IH AG 2022-03-31 13:32:00 Test Item Value Reference Range Interpretation Comme nts COVID 19 Asymptomatic IH AG NEGATIVE 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 GLUCOSE BEDSIDE [id number] 12:27:00 Test Item Value Reference Range Interpretation Comments GLUCOSE BEDSIDE TESTING (test code 194 mg/dL 70-110 H = GLUBED) TROP-I HIGH [id number] 04:12:00 Test Item Value Reference Range Interpretation [...] varyby method. Completed by Nursing: NOCSALLY W/AUTO [id number] 03:12:00 Test Item Value Reference Range Interpretation [...] NT WITH AUTO DIFFERENTI AL. BASIC METABOLIC [id number] 00:36:00 Test Item Value Reference Range Interpretation [...] Dose Date: 11/05/00 Dose Time: HEPATIC FUNCTION [id number] 00:36:00 Test Item Value Reference Range Interpretation [...] Dose Date: 11/05/00Las Dose Time: TROP-I HIGH [id number] 00:36:00 Test Item Value Reference Range Interpretation [...] NOLast Dose Date: 11/05/00Last Dose Time: 0000 [id number] 00:36:00 Test Item Value Reference Range Interpretation [...] [Auto mated message] = SALVADOR) The system [employer] generated this result transmitted ref erence range: 2.8-20.0 THER. The reference r sonja was not used to interpret this result as normal/abnor mal. UA RFLX MICR CULT IF [id number] 00:29:00 Test Item Value Reference Range Interpretation [...] Indication for culture: RiskForSepsis-no oth srcCBC W/AUTO [id number] 20:54:00 Test Item Value Reference Range Interpretation [...] NO DIFF/SCN CRITERIA = MDIFF) CBC W/AUTO [id number] 20:54:00 Test Item Value Reference Range Interpretation [...] code NO DIFF/SCN CRITERIA = MDIFF) RBC [id number] 20:54:00 Test Item Value Reference Range Interpretation Comments PLATELET MORPHOLOGY (test code = NORMAL PLTMORPH) CBC W/AUTO [id number] 20:54:00 Test Item Value Reference Range Interpretation [...] NO DIFF/SCN CRITERIA = MDIFF) BASIC METABOLIC [id number] 20:47:00 Test Item Value Reference Range Interpretation [...] CA) 8.5 MG/DL 8.5-10.1 N HEPATIC FUNCTION [id number] 20:47:00 Test Item Value Reference Range Interpretation [...] 189 Unit/L 50-136 H code = ALKP) [id number] 20:47:00 Test Item Value Reference Range Interpretation Comments LIPASE (test code = LIP) 219 Unit/L 114-286 N CBC W/AUTO [id number] 20:34:00 Test Item Value Reference Range Interpretation [...] code = DIFF/SCN CRITERIA MDIFF) BASIC METABOLIC [id number] 12:34:00 Test Item Value Reference Range Interpretation [...] CA) 9.5 MG/DL 8.5-10.1 N HEPATIC FUNCTION [id number] 12:34:00 Test Item Value Reference Range Interpretation [...] 291 Unit/L 50-136 H code = ALKP) [id number] 12:34:00 Test Item Value Reference Range Interpretation Comments LIPASE (test code = LIP) 207 Unit/L 114-286 N BASIC METABOLIC [id number] 12:29:00 Test Item Value Reference Range Interpretation [...] CA) 9.5 MG/DL 8.5-10.1 N HEPATIC FUNCTION [id number] 12:29:00 Test Item Value Reference Range Interpretation [...] TOTAL (test Unit/L 50-136 code = ALKP) [id number] 12:29:00 Test Item Value Reference Range Interpretation Comments LIPASE (test code = LIP) 207 Unit/L 114-286 N CBC W/AUTO [id number] 12:17:00 Test Item Value Reference Range Interpretation [...] DIFF/SCN CRITERIA MDIFF) - CT ABD PELVIS [id number] 11:10:00 Name: LUBNA LEACH [facility] : 1965 Age/S: 54 / M [address] Unit #: [id number] Loc: [place] [address] Phys: Nito Golden MD Acct: [id number] Dis Date: Status: REG ER PHONE #: [phone] Exam Date: 11/22/2019 1050 FAX #: Reason: rlq pain EXAMS: CPT: [id number] CT ABD PELVIS W/CONT 09555 LOCATION: T18 EXAM: CT ABDOMEN AND PELVIS [...] 11/22/2019 (1113) PAGE 1 Signed ReportBASIC METABOLIC [id number] 10:40:00 Test Item Value Reference Range Interpretation [...] CA) 9.0 MG/DL 8.5-10.1 N HEPATIC FUNCTION [id number] 10:40:00 Test Item Value Reference Range Interpretation [...] 112 Unit/L 50-136 N code = ALKP) [id number] 10:40:00 Test Item Value Reference Range Interpretation Comments LIPASE (test code = LIP) 106 Unit/L 114-286 L UA RFLX MICR CULT IF [id number] 10:12:00 Test Item Value Reference Range Interpretation [...] URINE: CLEAN CATCHIndication for culture: Dysuria/FrequencyCBC W/AUTO [id number] 09:46:00 Test Item Value Reference Range Interpretation [...] CRITERIA MDIFF) UA RFLX MICR CULT IF [id number] 09:45:00 Test Item Value Reference Range Interpretation [...] URINE: CLEAN CATCHIndication for culture: Dysuria/FrequencyCBC W/AUTO [id number] 23:05:00 Test Item Value Reference Range Interpretation [...] AUTO DIFFERENTIAL. UA RFLX MICR CULT IF [id number] 22:39:00 Test Item Value Reference Range Interpretation [...] CATCHIndication for culture: Dysuria/Frequency- CT ABD PELVIS [id number] 22:30:00 Name: LUBNA LEACH [facility] : 1965 Age/S: 54 / M [address] Unit #: [id number] Loc: [place] [address] Phys: Lino Ordaz MD Acct: [id number] Dis Date: Status: REG ER PHONE #: [phone] Exam Date: 10/14/20192219 FAX #: Reason: abdominal pain EXAMS: CPT: [id number] CT ABD PELVIS W/CONT 05925 EXAM: - CTABD PELVIS W/CONT HISTORY: Abdominal [...] Signed Report (CONTINUED) Name: LUBNA LEACH [facility] : 1965 Age/S: 54 / M [address] [facility] [address] Unit #: [id number] Loc: [place] [address] Phys: Lino Ordaz MD Acct: [id number] Dis Date: Status: REG ER PHONE #: [phone] Exam Date: 10/14/20190 FAX #: Reason: abdominal pain EXAMS: CPT: [id number] CT ABD PELVIS W/CONT 51844 <Continued> at 2230 Reported and signed by: Choco Wells M.D. CC: Lino Ordaz MD; Nuha BARRAZA Technologist:Leeroy Maldonado, RT(R)(CT)(MRI) CTDI: DLP: Trnscb Date/Time: 10/14/2019 (2229) [email or web address] Orig Print D/T: S: 10/14/2019 (3525) PAGE 2 Signed Report UA RFLX MICR CULT IF [id number] 22:21:00 Test Item Value Reference Range Interpretation [...] CLEAN CATCHIndication for culture: Dysuria/Frequency COMPREHENSIVE METABOLIC [id number] 21:35:00 Test Item Value Reference Range Interpretation [...] code = ALKP) - XR CHEST 1 [id number] 21:30:00 Name: LUBNA LEACH [facility] : 1965 Age/S: 54 / M [address] Unit #: [id number] Loc: [place] [address] Phys: Lino Oradz MD Acct: [id number] Dis Date: Status: REG ER PHONE #: [phone] Exam Date: 10/14/20192112 FAX #: Reason: liver failure EXAMS: CPT: [id number] XR CHEST 1 V 84998 Fluoro Time: DAP (Gy m2): Air Kerma [...] PAGE 1 Signed Report Name: LUBNA LEACH [facility] [place] : 1965 Age/S: 54 / M [address] Unit #: [id number] Loc: [place] [address] Phys: Lino Ordaz MD Acct: [id number] Dis Date: Status: REG ER PHONE #: [phone] Date: 10/14/20192112 FAX #: Reason: liver failure EXAMS: CPT: [id number] XR CHEST 1 V 25826 Fluoro Time: DAP (Gy m2): Air Kerma (mGy): <Continued> Technologist: Farooq Lang, RT(R)(CT) Trnscb Date/Time: 10/14/2019 (2129) [email or web address] Orig Print D/T: S: 10/14/2019 (2133) PAGE 2 Signed ReportCBC W/AUTO [id number] 21:25:00 Test Item Value Reference Range Interpretation [...] code = DIFF/SCN CRITERIA MDIFF) COMPREHENSIVE METABOLIC [id number] 21:22:00 Test Item Value Reference Range Interpretation [...] Unit/L 50-136 code = ALKP) CBC W/AUTO [id number] 13:44:00 Test Item Value Reference Range Interpretation [...] AUTO DIFFERENTIAL. UA RFLX MICR CULT IF [id number] 13:13:00 Test Item Value Reference Range Interpretation [...] URINE: CLEAN CATCHIndication for culture: Dysuria/FrequencyBASIC METABOLIC [id number] 13:12:00 Test Item Value Reference Range Interpretation [...] 8.5-10.1 N UA RFLX MICR CULT IF [id number] 13:12:00 Test Item Value Reference Range Interpretation [...] URINE: CLEAN CATCHIndication for culture: Dysuria/FrequencyCBC W/AUTO [id number] 12:59:00 Test Item Value Reference Range Interpretation [...] DIFF/SCN CRITERIA MDIFF) - CT HEAD/BRAIN W/O [id number] 12:55:00 Name: LUBNA LEACH [facility] : 1965 Age/S: 54 / M [address] Unit #: [id number] Loc: [place] [address] Phys: Nito Golden MD Acct: [id number] Dis Date: Status: REG ER PHONE #: [phone] Exam Date: 08/08/2019 1230 FAX #: Reason: headache EXAMS: CPT: [id number] CT HEAD/BRAIN W/O CONT 13233 Site ID: [id number] CT head TECHNIQUE: CT [...] Armenta, RT(R)(CT) CTDI: DLP: Trnscb Date/Time: 08/08/2019 (2294) [email or web address] Orig Print D/T: S: 08/08/2019 (1129) PAGE 1 Signed ReportTROPONIN I RAPID 2019-07-01 00:13:00 Test Item Value Reference Range Interpretation Comments TROPONIN I RAPID 0.00 ng/mL 0.00-0.08 N - The use o f serial (test code = sampling and te sting TROPIRAP) protocol is a recommended pra ctice- An elevated tro ponin level alone is often not sufficient for diagnosis of my ocardial infarction. HEPATIC FUNCTION [id number] 00:11:00 Test Item Value Reference Range Interpretation [...] code = 27 Unit/L 26-192 N CK) [id number] 00:11:00 Test Item Value Reference Range Interpretation Comments LIPASE (test code = LIP) 230 Unit/L 114-286 N NT PRO-BRAIN NATRIURETIC [id number] 00:11:00 Test Item Value Reference Range Interpretation Comments NT PRO-BRAIN NATRIURETIC PEPTI 137 PG/ML 0-100 H (test code = PROBNP) CHEMISTRY 8 [id number] 00:08:00 Test Item Value Reference Range Interpretation [...] 56-130 N code = GFRBED) CHEMISTRY 8 [id number] 00:08:00 Test Item Value Reference Range Interpretation [...] code = GFRBED) - XR CHEST 1 [id number] 00:03:00 Name: LUBNA LEACH [facility] : 1965 Age/S: 54 / M [address] Unit #: [id number] Loc: [place] [address] Phys: Jethro Rosenthal MD Acct: [id number] Dis Date: Status: REG ER PHONE #: [phone] Exam Date: 06/30/2019 0000 FAX #: Reason: SOB EXAMS: CPT: [id number] XR CHEST 1 V 14080 Fluoro Time: DAP (Gy m2): Air Kerma [...] 1 Signed Report Name: LUBNA LEACH [facility] : 1965 Age/S: 54 / M [address]: [id number] Loc: [place] [address] Phys: Jethro Rosenthal MD Acct: [id number] Dis Date: Status:REG ER PHONE #: [phone] Exam Date: 06/30/2019 0000 FAX #: Reason: SOB EXAMS: CPT: [id number] XR CHEST 1 V 75822 Fluoro Time: DAP (Gy m2): Air Kerma (mGy): <Continued> Technologist: CHILO Melgoza,RVS Trnscb Date/Time: 07/01/2019 (0003) [email or web address] Orig Print D/T: S: 07/01/2019 (0007) PAGE 2 Signed ReportC W/O [id number] 23:55:00 Test Item Value Reference Range Interpretation [...] 7.0-9.6 H MPV) - XR CHEST 1 [id number] 11:34:00 Name: LUBNA LEACH [facility] : 1965 Age/S: 54 / M [address] Unit #: [id number] Loc: [place] [address] Phys: Tejas Feliciano MD Acct: [id number] Dis Date: Status: REG ER PHONE #: [phone] Exam Date: 06/26/2019 1105 FAX #: Reason: sore throat, dyspnea EXAMS: CPT: [id number] XR CHEST 1 V 55149 Fluoro Time: DAP (Gy m2): Air Kerma [...] 1 Signed Report Name: LUBNA LEACH [facility] : 1965 Age/S: 54 / M [address] Unit #: [id number] Loc: [place] [address] Phys: Tejas Feliciano MD Acct: [id number] Dis Date: Status: REG ER PHONE #: [phone] Exam Date: 06/26/2019 1105 FAX #: Reason: sore throat, dyspnea EXAMS: CPT: [id number] XR CHEST 1 V 36826 Fluoro Time: DAP (Gy m2): Air Kerma (mGy): <Continued> Technologist: Refugio Armenta, RT(R)(CT) Trnscb Date/Time: 06/26/2019 (1135) [email or web address] Orig Print D/T: S: 06/26/2019 (0612) PAGE 2 Signed ReportCOMPREHENSIVE METABOLIC [id number] 11:27:00 Test Item Value Reference Range Interpretation [...] 50-136 H TOTAL (test code = ALKP) [id number] 11:27:00 Test Item Value Reference Range Interpretation Comments LIPASE (test code = LIP) 88 Unit/L 114-286 L CBC W/AUTO [id number] 11:09:00 Test Item Value Reference Range Interpretation [...] = NO DIFF/SCN CRITERIA MDIFF) ANTINUCLEAR ANTIBODIES [id number] 02:42:00 Test Item Value Reference Range Interpretation Comments SEAN DIRECT (test code Negative () = ANADIR) Neg ative <1:80 Borderline 1:8 0 Positive >1:80Performed At: [facility] [address] [place], [place] [id number] ivan Womack MD Ph:[phone] ACUTE HEPATITIS [id number] 02:42:00 Test Item Value Reference Range Interpretation Comments AB HEPATITIS A IGM NON REACTIVE NON REACT. Testing d one at (test code = INDEX CLEAR HOOKS [place] ONAL HAVMAB) [facility] [address] [place] [address] [id number] AB HEPATITIS B <3.1 mIU/mL Immunity>9.9 A Status of SURFACE (test code Immunity = HBSAB) Anti-H Bs Level --- I ncon sistent with Immunity 0.0 - 9.9Consistent w ith Immunity >9.9Performed A t: [facility] [address] [address] [place], [place] [id number] Kyle L MD Ph:[phone] ST PERFORMED AT [facility] [address] [place], [place] [address] AG HEPATITIS B NON REACTIVE NonReactive Testing done at SURFACE (test code INDEX [facility]AR [place] REGIONAL = HBSAG) [facility] [address] [place] [address] 736308 AB HEPATITIS B NON REACTIVE NON REACT. Testing done at CORE IGM (test INDEX CLEAR HOOKS RE GIONAL code = HBCMAB) [facility] [address] [place] [address] [id number] AB HEPATITIS C REACTIVE INDEX NON REACT. A Testing don e at (test code = CLEAR HOOKS [place] ONAL HCVAB) [facility] [address] [place] [address] [id number] AB [id number] 02:42:00 Test Item Value Reference Range Interpretation Comments AB <20.0 Units 0.0-20.0 ANTI-MITOCHONDRIAL Ne gative 0.0 - (test code = 20.0 MITOAB) Equi vocal 20.1 - 24.9 Positive >24.9Mitochondr ial (M2) Antibodies are found in 90-96% ofpatien ts with primary biliary cirrhosis.Perfo rmed At: [facility] [id number] ra Ev GOMEZ Ph:[phone] ANTINUCLEAR ANTIBODIES [id number] 16:45:00 Test Item Value Reference Range Interpretation Comments SEAN DIRECT (test code Negative () = ANADIR) Neg ative <1:80 Borderline 1:8 0 Positive >1:80Performed At: [facility] [address] [id number] ivan Womack MD Ph:[phone] ACUTE HEPATITIS [id number] 16:45:00 Test Item Value Reference Range Interpretation Comments AB HEPATITIS A IGM NON REACTIVE NON REACT. Testing d one at (test code = INDEX CLEAR [place]OO[place] ONAL HAVMAB) [facility] [address] [place] [address] AB HEPATITIS B <3.1 mIU/mL Immunity>9.9 A Status of SURFACE (test code Immunity = HBSAB) Anti-H Bs Level --- I ncon sistent with Immunity 0.0 - 9.9Consistent w ith Immunity >9.9Performed A t: [facility] [id number] Kyle L MD Ph:[phone] ST PERFORMED AT [facility] [address] [place] [address] AG HEPATITIS B NON REACTIVE NonReactive Testing done at SURFACE (test code INDEX [facility] [place] [facility] = HBSAG) [facility] [address] [place] [address] AB HEPATITIS B NON REACTIVE NON REACT. Testing done at CORE IGM (test INDEX CLEAR HOOKS RE GIONAL code = HBCMAB) [facility] [address] [place] [address] AB HEPATITIS C REACTIVE INDEX NON REACT. A Testing don e at (test code = CLEAR HOOKS [place] ONAL HCVAB) [facility] [address] [place] [address] AB [id number] 16:45:00 Test Item Value Reference Range Interpretation Comments AB ANTI-MITOCHONDRIAL (test code = Units 0.0-20.0 MITOAB) [id number] 21:51:00 Test Item Value Reference Range Interpretation Comments GLUBED (test code = GLUBED) 168 mg/dL 70-110 H [id number] 15:58:00 Test Item Value Reference Range Interpretation Comments GLUBED (test code = GLUBED) 168 mg/dL 70-110 H [id number] 07:22:00 Test Item Value Reference Range Interpretation Comments GLUBED (test code = GLUBED) 113 mg/dL 70-110 H CBC W/AUTO [id number] 06:46:00 Test Item Value Reference Range Interpretation [...] BA#) 0.1 K/mm3 0.0-0.2 N COMPREHENSIVE METABOLIC [id number] 06:12:00 Test Item Value Reference Range Interpretation [...] 158 Units/L 50.0-136.0 H code = ALKP) [id number] 06:12:00 Test Item Value Reference Range Interpretation Comments MAGNESIUM (test code = MAG) 2.0 mg/dl 1.8-2.4 N [id number] 23:47:00 Test Item Value Reference Range Interpretation Comments GLUBED (test code = GLUBED) 179 mg/dL 70-110 H ANTINUCLEAR ANTIBODIES [id number] 16:47:00 Test Item Value Reference Range Interpretation Comments SEAN DIRECT (test code = ANADIR) NEGATIVE ACUTE HEPATITIS [id number] 16:47:00 Test Item Value Reference Range Interpretation Comments AB HEPATITIS A IGM NON REACTIVE NON REACT. Testing d one at (test code = INDEX CLEAR HOOKS [place] ONAL HAVMAB) [facility] [address] [place] [address]. [place] [address] AB HEPATITIS B mIU/mL Immune >9.9 SURFACE (test code = HBSAB) AG HEPATITIS B NON REACTIVE NonReactive Testing done at SURFACE (test code INDEX [facility]AR [place] [facility]AL = HBSAG) [facility] [address] [place] [address], [place] [address] AB HEPATITIS B NON REACTIVE NON REACT. Testing done at CORE IGM (test INDEX CLEAR HOOKS RE GIONAL code = HBCMAB) [facility] [address] [place] [address], [place] [address] AB HEPATITIS C REACTIVE INDEX NON REACT. A Testing don e at (test code = CLEAR HOOKS [place] ONAL HCVAB) [facility] [address] [place] [address]. [place] [address] AB [id number] 16:47:00 Test Item Value Reference Range Interpretation Comments AB ANTI-MITOCHONDRIAL (test code = Units 0.0-20.0 MITOAB) AB HEPATITIS A [id number] 16:41:00 Test Item Value Reference Range Interpretation Comments AB HEPATITIS A IGM (test NON REACTIVE INDEX NON REACT. code = HAVMAB) AG HEPATITIS B [id number] 16:41:00 Test Item Value Reference Range Interpretation Comments AG HEPATITIS B SURFACE NON REACTIVE INDEX NonReactive (test code = HBSAG) AB HEPATITIS B CORE [id number] 16:41:00 Test Item Value Reference Range Interpretation Comments AB HEPATITIS B CORE IGM NON REACTIVE INDEX NON REACT. (test code = HBCMAB) AB HEPATITIS [id number] 16:41:00 Test Item Value Reference Range Interpretation Comments AB HEPATITIS C (test code = REACTIVE INDEX NON REACT. A HCVAB) [id number] 16:40:00 Test Item Value Reference Range Interpretation Comments GLUBED (test code = GLUBED) 167 mg/dL 70-110 H [id number] 13:52:00 Test Item Value Reference Range Interpretation Comments GLUBED (test code = GLUBED) 139 mg/dL 70-110 H VITAMIN [id number] 13:03:00 Test Item Value Reference Range Interpretation Comments VITAMIN B12 (test code = VITB12) 697 pg/mL 193-986 N THYROID STIMULATING [id number] 13:03:00 Test Item Value Reference Range Interpretation Comments THYROID STIMULATING 1.83 IU/ML 0.47-5.01 N Result i s in HORMONE (test code = Interna tional TSH) Units/millilite r [id number] 12:40:00 Test Item Value Reference Range Interpretation Comments HGBA1C% (test code = HGBA1C%) 6.4 %A1C 4.8-6.0 H ESTIMATED AVERAGE GLUCOSE (test 137 MG/DL code = EAG) - US ABDOMEN [id number] 12:20:00 FAX: Beto Urias [phone] [place]: St: [facility] FAX: Leslie Larsen [phone] Name: LUBNA LEACH [facility] : 1965 Age/S: 54/M [address] [facility] Unit #: [id number] Loc: [place], [place] Phys: Gael Garcia [address] Acct: [id number] Dis Date: Status: ADM IN PHONE #: [phone] Exam Date: 05/16/2019 1046 FAX #: [phone] Reason: Elevated LFT Report Has Been Amended EXAMS: CPT CODE: [id number] US ABDOMEN LTD 39908 Addendum - 05/16/2019 SIGNED 05/16/2019 ADDENDUM: [id number] US/USABDLTD Addendum: A typographical air occurred described [...] 1 Signed Report (CONTINUED) FAX: Beto Urias [phone] [place]: St: ADM FAX: Gael Larsen [phone] Name: LUBNA LEACH [facility] : 1965 Age/S: 54/M [address] [facility] Unit [facility]: [id number] Loc: [place], [place] Phys: Gael Garcia [address] Acct: [id number] Dis Date: Status: ADM IN PHONE #: [phone] Exam Date: 05/16/2019 1046 FAX #: [phone] Reason: Elevated LFT Report Has Been Amended EXAMS: CPT CODE: [id number] US ABDOMEN LTD [address]1656 <Continued> Impression: No acute abnormality in the [...] HU Trnscrd Date/Time/By: 05/16/2019 (1108) : By: [facility] PAGE 2 Signed Report FAX: Beto Urias [phone] [place]: St: ADM FAX: Gael Larsen [phone] Name: LUBNA LEACH [facility] : 1965 Age/S: 54/M [address] Unit #: [id number] Loc: [place], [place] Phys: Gael Garcia [address] Acct: [id number] Dis Date: Status: ADM IN PHONE #: [phone] Exam Date: 05/16/2019 1046 FAX #: [phone] Reason: Elevated LFT Report Has Been Amended EXAMS: CPT CODE: [id number] US ABDOMEN LTD [address]38 <Continued> Orig Print D/T: S: 05/16/2019 (1112) PAGE 3 Signed Report- US ABDOMEN [id number] 11:08:00 FAX: Beto rUias [phone] [place]: St: ADM FAX: Leslie Larsen [phone] Name: LUBNA LEACH [facility] : 1965 Age/S: 54/M [address] [place] [address] Unit #: [id number] Loc: [place], [place] Phys: Gael Garcia [address] Acct: [id number] Dis Date: Status: ADM IN PHONE #: [phone] Exam Date: 05/16/2019 1046 FAX #: [phone] Reason: Elevated LFT EXAMS: CPT CODE: [id number] US ABDOMEN LTD 17531 ULTRASOUND:- US ABDOMEN LTD History: Elevated liver [...] MD; Gael BARRAZA Technologist: CARLOS ALBERTO HU Trnarrd Date/Time/By: 05/16/2019 (5103) : By: [facility] PAGE 1 Signed Report FAX: Beto Urias [phone] [place]: St: [facility] FAX: Gael Larsen [phone] Name: LUBNA LEACH [facility] : 1965 Age/S: 54/M [address] [facility] Unit #: [id number] Loc: [place], [place] Phys: Gael Garcia [address] Acct: [id number] Dis Date: Status: ADM IN PHONE #: [phone] Exam Date: 05/16/2019 1046 FAX #: [phone] Reason: Elevated LFT EXAMS: CPT CODE: [id number] US ABDOMEN LTD 60800 <Continued> Orig Print D/T: S: 05/16/2019 (2412) PAGE 2 Signed [id number] 07:18:00 Test Item Value Reference Range Interpretation Comments AMMONIA (test code = AMM) 9.5 MCMOL/L 11.0-32.0 L No sample received in the lab. Please collect if deemednecessary.Thank you!Lab DRUGS OF ABUSE SCREEN [id number] 06:29:00 Test Item Value Reference Interpretation Comments [...] [place]) concentrati on: 300 ng/mL CBC W/MANUAL [id number] 05:08:00 Test Item Value Reference Range Interpretation [...] MORPHOLOGY (test code NORMAL = PLTMORPH) PROTHROMBIN [id number] 01:10:00 Test Item Value Reference Range Interpretation Comments PROTHROMBIN TIME 12.6 SECONDS 9.9-12.8 N PATIENT (test code = PTP) INTERNATIONAL NORMAL 1.1 0.89-1.14 N THE INR IS TO BE USED RATIO (test code = ONLY FOR MONITORING INR) ORAL ANTICOAGULANTTH ERAPY. THE FOLLOWING A RE SUGGESTED RANGE S FROM [facility] LEGE OF CHEST PHYSICIANS:ANGELA CATION INR [...] 3 .5 Specimen comments: Clean CatchTHROMBOPLASTIN TIME [id number] 01:10:00 Test Item Value Reference Range Interpretation Comments THROMBOPLASTIN TIME 33.50 SECONDS 25.86-36.07 N [place] d Lab PARTIAL (test code = Therape utic Range - PTT) APTT of 55.8-85 .4 secondscorrelat es with plasma heparin concentration o f 0.2-0.4 u/mL Ne w range effective - Specimen comments: Clean CatchBASIC METABOLIC [id number] 01:09:00 Test Item Value Reference Range Interpretation [...] N Specimen comments: Clean CatchHEPATIC FUNCTION PANEL [id number] 01:09:00 Test Item Value Reference Range Interpretation [...] H code = ALKP) Specimen comments: Clean [id number] 01:09:00 Test Item Value Reference Range Interpretation Comments LIPASE (test code = 560 Units/L 65.0-230.0 H 2+ LIPEM IC SAMPLE. LIP) Specimen comments: Clean CatchB-TYPE NATRIURETIC [id number] 01:09:00 Test Item Value Reference Range Interpretation Comments B-TYPE NATRIURETIC PEPTIDE (test 33 PG/ML 5-100 N code = BNP) Specimen comments: Clean CatchBASIC METABOLIC [id number] 00:59:00 Test Item Value Reference Range Interpretation [...] CA) 8.0 mg/dl 8.0-10.5 N Specimen comments: IPLSHOP BrasilHEPATIC FUNCTION PANEL [id number] 00:59:00 Test Item Value Reference Range Interpretation [...] 50.0-136.0 H code = ALKP) Specimen comments: IPLSHOP [id number] 00:59:00 Test Item Value Reference Range Interpretation Comments LIPASE (test code = 560 Units/L 65.0-230.0 H 2+ LIPEM IC SAMPLE. LIP) Specimen comments: IPLSHOP BrasilB-TYPE NATRIURETIC [id number] 00:59:00 Test Item Value Reference Range Interpretation Comments B-TYPE NATRIURETIC PEPTIDE (test code PG/ML 5-100 = BNP) Specimen comments: Clean CatchBASIC METABOLIC [id number] 00:54:00 Test Item Value Reference Range Interpretation [...] 8.0-10.5 Specimen comments: Clean CatchHEPATIC FUNCTION PANEL [id number] 00:54:00 Test Item Value Reference Range Interpretation [...] 50.0-136.0 code = ALKP) Specimen comments: Clean [id number] 00:54:00 Test Item Value Reference Range Interpretation Comments LIPASE (test code = LIP) Units/L 65.0-230.0 Specimen comments: Clean CatchB-TYPE NATRIURETIC [id number] 00:54:00 Test Item Value Reference Range Interpretation Comments B-TYPE NATRIURETIC PEPTIDE (test code PG/ML 5-100 = BNP) Specimen comments: Clean CatchURINALYSIS [id number] 00:52:00 Test Item Value Reference Range Interpretation [...] NONE BACU) Specimen comments: Clean CatchCBC W/MANUAL [id number] 00:46:00 Test Item Value Reference Range Interpretation [...] code = LYMPH) % 20-40 CBC W/MANUAL [id number] 00:46:00 Test Item Value Reference Range Interpretation [...] (test code = LYMPH) % 20-40 URINALYSIS [id number] 00:45:00 Test Item Value Reference Range Interpretation [...] comments: Clean Catch- CT ABD PELVIS W/O [id number] 23:43:00 FAX: Nathan Prinec MD [place]: St: REG Name: LUBNA LEACH [facility] : 1965 Age/S: 54/M [address] [facility] [place] Unit: [id number] Loc: [address] Phys: [place] [address] Acct: [id number] Dis Date: Status: REG ER PHONE #: [phone] Exam Date: 05/15/2019 2316 FAX #: [phone] Reason: ruq pain EXAMS: CPT CODE: [id number] CT ABD PELVIS W/O CONT 98752 CLINICAL HISTORY: Right upper quadrant abdominal pain,shortness [...] Signed Report (CONTINUED) FAX: Nathan Prince MD [place]: St: REG Name: LUBNA LEACH [facility] : 1965 Age/S: 54/M [address] [facility] [place] Unit: [id number] Loc: [address] [place], [place]: [place] [address] Acct: [id number] Dis Date: Status: REG ER PHONE #: [phone] Exam Date: 05/15/2019 2316 FAX #: [phone] Reason: ruq pain EXAMS: CPT CODE: [id number] CT ABD PELVIS W/O CONT 65906 <Continued> This exam was performed according to ourdepartmental dose-optimization program, which includes automated exposure control, adjustment of the mA and/or kV according to patient size and/or use of iterative reconstruction technique at 5183 Reported and signed by: Lennox Purvis M.D. CC: Nathan Prince MD Technologist: STANTON LIZ Trnscrd Dt/Tm: 05/15/2019 (9297) [email or web address] Orig Print D/T: S: 05/15/2019 (3165 PAGE 2 Signed Report- XR CHEST 2 [id number] 23:29:00 FAX: Nathan Prince MD [place]: St: REG Name: LUBNA LEACH [facility] : 1965 Age/S: 54/M [address] [facility] [place] Unit#: [id number] Loc: [address] [place], [place]: [place] [address] Acct: [id number] Dis Date: Status: REG ER PHONE #: [phone] Exam Date: 05/15/20190 FAX #: [phone] Reason: sob EXAMS: CPT CODE: [id number] XR CHEST 2 V 08829 EXAM: - XR CHEST 2 V HISTORY: Shortness of breath. COMPARISON: April 17, 2018. FINDINGS: PA and lateral view of the chest is provided. Heart size and vascularity are within normal limits. There is no focal consolidation. No effusion, pneumothorax, or acute osseous abnormality. IMPRESSION: No consolidation or pleural effusion. at 8074 Reported and signed by: Choco Wells M.D. CC: Nathan Prince MD Technologist: TOO JIMENEZ Trnarrd Date/Time/By: 05/15/2019 (8926) : By: [email or web address] PAGE 1 Signed Report FAX: Nathan Prince MD [place]: St: REG -- Name: LUBNA LEACH [facility] : 1965 Age/S: 54/M [address] [facility] [place] Unit #: [id number] Loc: [address] Phys: [place] [address] Acct: [id number] Dis Date: Status: REG ER PHONE #: [phone] Exam Date: 05/15/2019 2320 FAX #: [phone] Reason: sob EXAMS: CPT CODE: [id number] XR CHEST 2 V 45339 <Continued> Orig Print D/T: S: 05/15/2019 (0315) PAGE 2 Signed Report
[2022-04-30 19:42] LABS: Absolute Lymphocytes (CBC) 2.6 K/uL (0.7-4.9); Hematocrit 42.2 % (39.6-49.0); Lymphocytes % 41.6 % (15.3-44.8); MPV 10.2 fL (7.6-11.3); RBC Red Blood Cell Count 4.51 M/uL (4.33-5.43)
[2022-04-30 19:58] LABS: Protime INR 1.11
[2022-04-30 20:15] LABS: ALT/SGPT 61 U/L (12-78); AST/SGOT 52 U/L (15-37); Alkaline Phosphatase 93 U/L (45-117); BUN Blood Urea Nitrogen 16 mg/dL (7-18); Bicarbonate 28 mmol/L (21-32); Bilirubin Direct 0.5 mg/dL (0-0.2); Bilirubin Total 0.9 mg/dL (0.2-1.0); Glomerular Filtration Rate 81 ml/min (=/>90); Glucose Level 213 mg/dL (74-106); Potassium 4.1 mmol/L (3.5-5.1); Protein, Total 6.7 g/dL (6.4-8.2); Sodium Level 136 mmol/L (136-145)
[2022-04-30 23:41] LABS: Urine Blood Negative (Negative); Urine Glucose Negative (Negative); Urine Protein Negative (Negative); Urine pH 6.5 (5.0-7.0)
[2022-05-01 00:35] LABS: Barbiturates NEGATIVE (NEGATIVE); Benzodiazepines NEGATIVE (NEGATIVE); Cocaine NEGATIVE (NEGATIVE); METHAMPHETAM NEGATIVE (NEGATIVE); Methadone NEGATIVE (NEGATIVE); Opiates NEGATIVE (NEGATIVE); Phencyclidine NEGATIVE (NEGATIVE); THC Cannibis POSITIVE (NEGATIVE)
--- NOTE | 2022-05-01 01:13 | ER ---
Nurse's Notes [facility] Name: Huber Augustine Age: 57 yrs Sex: Male : 1965 Arrival Date: 04/30/2022 Time: 15:04 Bed 17 Private MD: Diagnosis: Suicidal ideations Presentation: 04/30 15:57 Chief complaint: Patient states: "Im going to be honest ok, they told me I have CHF and vg1 like I dont have anywhere to go, I called my friends and they havnt came to get me, I called my sons and they dont care about me, I need some help, but no one cares about me so why should I, maybe its time to just take a long swim, I just need help, please help" Also stated want to go back "[facility]" in [place], stated "they will be able to help me, its a [facility]" Stated is 'having SI thoughts". Coronavirus screen: Vaccine status: Patient reports being unvaccinated. Client denies travel out of the [place] in the last 14 days. Ebola Screen: Patient denies exposure to infectious person. Patient denies travel to an Ebola-affected area in the 21 days before illness onset. Initial Sepsis Screen: Does the patient meet any 2 criteria? No. Patient's initial sepsis screen is negative. Does the patient have a suspected source of infection? No. Patient's initial sepsis screen is negative. Risk Assessment: Do you want to hurt yourself or someone else? Patient reports no desire to harm self or others. Onset of symptoms was April 30, 2022. 15:57 Method Of Arrival: Ambulatory vg1 15:57 Acuity: ROSALEE 2 vg1 Triage Assessment: 16:01 General: Appears uncomfortable, Behavior is anxious. Pain: Denies pain. vg1 Historical: - Allergies: 16:01 Opioids; vg1 - Home Meds: 05/01 08:24 buspirone 10 mg Oral tab 1 tab 2 times per day [Active]; divalproex 500 mg Oral Tb24 1 jg9 tab twice a day [Active]; gabapentin 300 mg Oral cap 1 cap 3 times per day [Active]; lisinopril 5 mg Oral tab 1 tab daily [Active]; metformin 500 mg Oral tab 1 tab daily [Active]; trazodone 150 mg Oral tab 1 tab nightly [Active]; - PMHx: 04/30 16:01 Anxiety; Bipolar disorder; CHF; diabetes mellitus; Hypertensive disorder; neuropathy; vg1 - PSHx: 16:01 Cholecystectomy; Tonsillectomy; vg1 - Immunization history:: Client reports having NOT received the Covid vaccine. - Social history:: Smoking status: Patient reports the use of cigarette tobacco products, denies chronic smoking, but will smoke occasionally. Screenin:42 Abuse screen: Denies threats or abuse. Nutritional screening: No deficits noted. jh6 Tuberculosis screening: No symptoms or risk factors identified. Fall Risk None identified. Assessment: 18:41 General: Appears in no apparent distress. Behavior is calm, cooperative. Pain: Denies [facility] pain. Neuro: No deficits noted. 19:30 Reassessment: Patient appears in no apparent distress at this time. Patient and/or kl family updated on plan of care and expected duration. Pain level reassessed. Patient is alert, oriented x 3, equal unlabored respirations, skin warm/dry/pink. Patient denies pain at this time. Patient states feeling better. pt reports has no where to go and no family to help him He says he doesn't want to kill himself he is just hungry . 05/01 05:56 Reassessment: report given to receiving RN at [facility]. 05:59 General: Appears in no apparent distress. comfortable, Behavior is calm, cooperative. lg3 Pain: Denies pain. Neuro: No deficits noted. Aparicio Agitation-Sedation Scale (RASS): 0 - Alert and Calm Level of Consciousness is awake, alert, obeys commands, Oriented to person, place, time, situation. Respiratory: No deficits noted. Airway is patent Trachea midline Respiratory effort is even, unlabored, Respiratory pattern is regular, symmetrical. 07:00 Reassessment: No changes from previously documented assessment. Patient and/or family jg9 updated on plan of care and expected duration. Pain level reassessed. Patient is alert, oriented x 3, equal unlabored respirations, skin warm/dry/pink. General: Appears in no apparent distress. comfortable, Behavior is calm, cooperative. Pain: Denies pain. Neuro: No deficits noted. Aparicio Agitation-Sedation Scale (RASS): 0 - Alert and Calm Level of Consciousness is awake, alert, obeys commands, Oriented to person, place, time, situation. Cardiovascular: No deficits noted. Respiratory: No deficits noted. GI: No deficits noted. : No deficits noted. EENT: No deficits noted. Derm: No deficits noted. 08:00 Reassessment: No changes from previously documented assessment. Patient and/or family jg9 updated on plan of care and expected duration. Pain level reassessed. Patient is alert, oriented x 3, equal unlabored respirations, skin warm/dry/pink. 09:00 Reassessment: No changes from previously documented assessment. Patient and/or family jg9 updated on plan of care and expected duration. Pain level reassessed. Patient is alert, oriented x 3, equal unlabored respirations, skin warm/dry/pink. 09:24 Reassessment: Patient being transferred at this time, [place] [address] crew is here , jg9 patient is awake, alert, calm and cooperative, denied any pain or discomfort, patient ate breakfast, ADL needs addressed, patient under moderate sedation precaution in ED. Psych: 08:07 Crane Suicide Severity Screening: In the past month, have you wished you were jg9 or wished you could go to sleep and not wake up? Patient responds "yes." Based off the client's responses additional C-SSRS screening is required. "In the past month, have you actually had any thoughts of killing yourself?" Patient responds "yes." Based off the client's response additional Crane suicide severity screening questions to be further documented on paper forms. "In your lifetime, have you ever done anything, started to do anything, or prepared to do anything to end your life?" Patient responds "yes." Patient reports suicidal intent within 3 past months. Patient reports that he recently became homeless and as a result wants to go out into the water and swim unti l he can't anymore-patient [place]. Subjective: Patient's mood is patient is calm,cooperative, and pleasant with periods of sadness when questioned about events leading up to this visit. Delusions are denied, Hallucinations are Patient reports that he doesn't hear specific voices but he does feel like he has thoughts telling him to harm himself Having thoughts of suicide. Plan for suicide is drowning. Objective: Patient is cooperative, Speech is normal, Affect is appropriate. Interventions: patient was here when I arrived, patient in his clothing and patient has belongings in the room, not sure why but patient is awaiting transport now to the behavioral facility. Safety Checks: Door is open. No visitors are present at this time. sitter present. Pt denies substance abuse. Commitment: Patient will be a voluntary commitment. Vital Signs: 04/30 15:57 BP 119 / 86; Pulse 86; Resp 16; Temp 98.1(O); Pulse Ox 100% on R/A; Weight 90.72 kg; vg1 Height 6 ft. 0 in. (182.88 cm); Pain 0/10; 05/01 00:17 BP 132 / 88; Pulse 78; Resp 16; Pulse Ox 94% on R/A; kl 08:26 BP 112 / 78; Pulse 67; Resp 16 S; Pulse Ox 99% on R/A; jg9 04/30 15:57 Body Mass Index 27.12 (90.72 kg, 182.88 cm) vg1 ED Course: 04/30 15:04 Patient arrived in ED. as 16:01 Triage completed. vg1 16:01 Arm band placed on. vg1 18:24 Wisam Lowry PA is PHCP. cp 18:24 Zelda Cobb MD is Attending Physician. cp 18:42 No provider procedures requiring assistance completed. jh6 20:00 No apparent distress. Appears to be sleeping. kl 21:00 No apparent distress. Appears to be sleeping. kl 22:00 Safety Checks: Personal items have been removed. The door is open or patient has been kl placed in a hallway bed/chair. 23:00 Appears to be sleeping. kl 23:40 Urine Drug Screen Sent. mw2 05/01 00:17 No apparent distress. Appears to be sleeping. kl 00:44 contacted [facility] Crisis Line spoke to Nidia to have a screener evaluate the mw2 patient. 01:39 Colten from [facility] is on his way he is stuck in [place]. mw2 03:43 faxed patient clinicals to all available psych facilities. mw2 05:18 Nurse to Nurse [facility]. mw2 05:53 Nurse to Nurse [facility]. mw2 05:59 Patient has correct armband on for positive identification. Placed in gown. Bed in low lg3 position. Side rails up X 1. 06:17 Nurse to Nurse from [facility]. mw2 08:05 Linda Helms, RN is Primary Nurse. jg9 09:15 Diet: Patient given a regular meal tray. jg9 09:27 IV discontinued. jg9 Administered Medications: No medications were administered Medication: 08:24 VIS not applicable for this client. jg9 Outcome: 01:12 ER care complete, transfer ordered by MD. 09:27 Transferred by ground EMS Transfer form completed. Note: [facility] jg9 09:27 Condition: stable jg9 09:29 Patient left the ED. jg9 Signatures: Ashleigh Limon, RN RN Devika Burns Brenda, RN RN Wisam Taylor PA PA cp [place], MyKena mw2 Laverne Adair, CHANELLE ROCA lg3 Diane Buckley RN RN vg1 Linda Dick RN CHANELLE jh6 Linda Helms, CHANELLE ROCA jg9 Corrections: (The following items were deleted from the chart) 04/30 16:02 15:57 Chief complaint: Patient states: "Im going to be honest ok, they told me I have vg1 CHF and like I dont have anywhere to go, I called my friends and they havnt came to get me, I called my sons and they dont care about me, I need some help, but no one cares about me so why should I, maybe its time to just take a long swim, I just need help, please help" Also stated want to go back "[facility]" in [place], stated "they will be able to help me, its a [facility]" vg1 16: 15:57 Acuity: ROSALEE 3 vg1 vg1 05/01 06:01 05:59 VIS not applicable for this client. lg3 lg3
--- NOTE | 2022-05-01 01:13 | EDPHYS ---
Physician Documentation [facility] Name: Huber Augustine Age: 57 yrs Sex: Male : 1965 Arrival Date: 04/30/2022 Time: 15:04 Bed 17 Private MD: ED Physician Zelda Cobb HPI: 04/30 18:45 This 57 yrs old Male presents to ER via Ambulatory with complaints of Psych Problem. cp 18:45 The patient presents to the emergency department with depression, over health. cp 18:45 Past psychiatric history: Prior diagnosis: bipolar disorder, Psychiatric medications cp include: none. Associated signs and symptoms: The patient has no apparent associated signs or symptoms. Historical: - Allergies: 16:01 Opioids; vg1 - Home Meds: 05/01 08:24 buspirone 10 mg Oral tab 1 tab 2 times per day [Active]; divalproex 500 mg Oral Tb24 1 jg9 tab twice a day [Active]; gabapentin 300 mg Oral cap 1 cap 3 times per day [Active]; lisinopril 5 mg Oral tab 1 tab daily [Active]; metformin 500 mg Oral tab 1 tab daily [Active]; trazodone 150 mg Oral tab 1 tab nightly [Active]; - PMHx: 04/30 16:01 Anxiety; Bipolar disorder; CHF; diabetes mellitus; Hypertensive disorder; neuropathy; vg1 - PSHx: 16:01 Cholecystectomy; Tonsillectomy; vg1 - Immunization history:: Client reports having NOT received the Covid vaccine. - Social history:: Smoking status: Patient reports the use of cigarette tobacco products, denies chronic smoking, but will smoke occasionally. ROS: 18:50 Constitutional: Negative for body aches, chills, fever, poor PO intake. cp 18:50 Eyes: Negative for injury, pain, redness, and discharge. cp 18:50 Cardiovascular: Negative for chest pain. 18:50 Respiratory: Negative for cough, shortness of breath, wheezing. 18:50 Neuro: Negative for altered mental status, dizziness, headache, syncope, weakness. 18:50 Psych: Positive for depression, suicidal ideation. 18:50 All other systems are negative. Exam: 18:55 Constitutional: The patient appears in no acute distress, alert, awake, cp non-diaphoretic, non-toxic, well developed, well nourished. 18:55 Head/Face: Normocephalic, atraumatic. cp 18:55 Eyes: Periorbital structures: appear normal, Conjunctiva: normal, no exudate, no injection, Sclera: no appreciated abnormality, Lids and lashes: appear normal, bilaterally. 18:55 ENT: External ear(s): are unremarkable, Nose: is normal, Mouth: Lips: moist, Oral mucosa: pink and intact, moist, Posterior pharynx: Airway: no evidence of obstruction, patent. 18:55 Neck: ROM/movement: is normal, is supple, without pain, no range of motions limitations. 18:55 Chest/axilla: Inspection: normal. 18:55 Cardiovascular: Rate: normal, Rhythm: regular. 18:55 Respiratory: the patient does not display signs of respiratory distress, Respirations: normal, no use of accessory muscles, no retractions, labored breathing, is not present, Breath sounds: are clear throughout, no decreased breath sounds, no stridor, no wheezing. 18:55 Abdomen/GI: Inspection: abdomen appears normal, Palpation: abdomen is soft and non-tender, in all quadrants. 18:55 Back: pain, is absent, ROM is normal. 18:55 Neuro: Orientation: to person, place \\T\\ time. Mentation: is normal, Motor: moves all fours, strength is normal. 18:55 Psych: Behavior/mood is cooperative, Judgement / Insight is normal. Delusions/hallucinations are not present. Vital Signs: 15:57 BP 119 / 86; Pulse 86; Resp 16; Temp 98.1(O); Pulse Ox 100% on R/A; Weight 90.72 kg; vg1 Height 6 ft. 0 in. (182.88 cm); Pain 0/10; 05/01 00:17 BP 132 / 88; Pulse 78; Resp 16; Pulse Ox 94% on R/A; kl 08:26 BP 112 / 78; Pulse 67; Resp 16 S; Pulse Ox 99% on R/A; jg9 04/30 15:57 Body Mass Index 27.12 (90.72 kg, 182.88 cm) vg1 MDM: 04/30 18:31 Patient medically screened. 05/01 00:45 Data reviewed: vital signs, nurses notes, lab test result(s), EKG. cp 00:45 ED course: VSS. [facility] evaluation ordered. 04/30 18:46 Order name: Acetaminophen; Complete Time: 00:39 cp 05/01 00:39 Interpretation: Reviewed. 04/30 18:46 Order name: Basic Metabolic Panel; Complete Time: 00:39 cp 04/30 20:34 Interpretation: Normal except: GLUC 213; GFR 81. 04/30 18:46 Order name: CBC with Diff; Complete Time: 20:34 cp 04/30 20:35 Interpretation: Normal except: PLT 89; MERCEDEZ% 38.5; MN% 14.5; EOSINOPHIL % 4.7. cp 04/30 18:46 Order name: ETOH Level; Complete Time: 20:34 cp 04/30 20:35 Interpretation: ETOH < 10; Reviewed. 04/30 18:46 Order name: Hepatic Function; Complete Time: 00:39 cp 04/30 20:35 Interpretation: Normal except: AST 52; BILID 0.5; ALB 3.0; GLOB 3.7; A/G 0.8. 04/30 18:46 Order name: PT-INR; Complete Time: 20:34 cp 05/01 00:39 Interpretation: Reviewed. 04/30 18:46 Order name: Ptt, Activated; Complete Time: 20:34 04/30 20:35 Interpretation: Abnormal: PTT 40.4. 04/30 18:46 Order name: Salicylate; Complete Time: 22:48 04/30 22:48 Interpretation: Reviewed. 04/30 18:46 Order name: Urine Drug Screen; Complete Time: 00:39 05/01 00:39 Interpretation: Normal except: THC POSITIVE. 04/30 18:46 Order name: EKG - Nurse/Tech; Complete Time: 22:14 04/30 18:46 Order name: IV Saline Lock; Complete Time: 22:14 04/30 19:14 Order name: COVID-19 SARS RT PCR (Document "Date of Onset" if Symptomatic); Complete mw2 Time: 22:48 04/30 23:41 Order name: Urine Dipstick-Ancillary; Complete Time: 00:39 EDMS 05/01 00:39 Interpretation: Reviewed. 04/30 18:46 Order name: Labs collected and sent; Complete Time: 22:14 04/30 18:46 Order name: Suicide Precautions; Complete Time: 22:14 cp 04/30 18:46 Order name: Suicide Screening ([place]); Complete Time: 22:14 cp 04/30 18:46 Order name: Urine Dipstick-Ancillary (obtain specimen); Complete Time: 23:40 cp Administered Medications: No medications were administered Disposition Summary: 05/01/22 01:12 Transfer Ordered Transfer Location: [facility] Facility cp Reason: Higher level of care cp Condition: Stable cp Problem: new cp Symptoms: are unchanged cp Accepting Physician: Doctor(05/01/22 09:29) jg9 Diagnosis - Suicidal ideations cp Forms: - Medication Reconciliation Form cp - SBAR form cp Signatures: Dispatcher [employer] EDMS Wisam Lowry PA PA cp Garcia, Victoria RN RN vg1 Linda Helms RN RN jg9 Corrections: (The following items were deleted from the chart) : 01:12 Doctor clemente jg9
[2022-05-01 09:35] VITALS: TEMP 98.1
[2022-05-01 09:39] VITALS: BP 112/78; O2SAT 99
== END 2022-05-01 09:29 ==
LOC: ER 15:03
DX: R45.851 Suicidal ideations (principal); F32.A Depression, unspecified; I10 Essential (primary) hypertension; I50.9 Heart failure, unspecified; F17.210 Nicotine dependence, cigarettes, uncomplicated; Z88.5 Allergy status to narcotic agent; Z20.822 Contact with and (suspected) exposure to COVID-19
CPT/HCPCS: 85025; 80048; 36415; 80320; 80329 ×2; 85610; 80076; 85730; 81003; 80307; U0003; 99285